=== PATIENT | female | born 1955 | race Caucasian/White ===

== ENCOUNTER → 2016-10-19 | Outpatient (CLI) | payer OTHER ==
[2016-10-19 15:48] LABS: ALT 37 U/L (9-52); AST 14 U/L (14-36); Blood Urea Nitrogen 26 mg/dL (7-17); Non-African American GFR(MDRD) 57 (>60 ml/min/1.73 sqM); Uric Acid 6.3 mg/dL (3.7-7.4)
== END | disposition home or self-care (01) ==
LOC: LABWHC1 15:01
PROVIDERS: ATTEND Podiatrist
DX: M10.9 Gout, unspecified (principal)
CPT/HCPCS: 36415; 82565; 84450; 84460; 84520; 84550

== ENCOUNTER → 2016-10-26 | Outpatient (CLI) | payer OTHER ==
[2016-10-26 14:42] LABS: ALT 39 U/L (9-52); AST 15 U/L (14-36); Blood Urea Nitrogen 26 mg/dL (7-17); Non-African American GFR(MDRD) 56 (>60 ml/min/1.73 sqM); Uric Acid 6.7 mg/dL (3.7-7.4)
== END | disposition home or self-care (01) ==
LOC: LABWHC1 13:54
PROVIDERS: ATTEND Podiatrist
DX: M10.9 Gout, unspecified (principal)
CPT/HCPCS: 36415; 82565; 84450; 84460; 84520; 84550

== ENCOUNTER 2017-01-22 02:46 | Inpatient (IN) | payer OTHER ==
[2017-01-22] MEDS ORDERED: SODIUM CHLORIDE 0.9% 1,000 ML IV STA (03:26)
[2017-01-22] MEDS ORDERED: cloNIDine HCL 0.1 MG TAB PO STA (03:31)
[2017-01-22 03:52] LABS: Basophils # (A) 0.1 k/uL (0-0.2); Basophils % (A) 1 %; CH 28.9; CHCM 33.6; Eosinophils # (A) 0.2 k/uL (0-0.7); Eosinophils % (A) 2 %; HCT 26.2 % (34.0-46.0); HDW 3.28; HGB 8.6 gm/dL (11.4-16.0); Luc # (Auto) 0.11; Luc % (Auto) 1; Lymphocytes % (A) 10 %; MCH 28.4 pg (25.0-35.0); MCHC 32.9 g/dL (31.0-37.0); MCV 86.3 fL (80.0-100.0); Mean Platelet Volume 6.9; Monocytes # (A) 0.3 k/uL (0-1.0); Monocytes % (A) 4 %; Neutrophils # (A) 8.1 k/uL (1.3-7.7); Neutrophils % (A) 83 %; RBC 3.04 m/uL (3.80-5.40); RDW 14.4 % (11.5-15.5); WBC 9.8 k/uL (3.8-10.6); WBC (Perox) 9.66
[2017-01-22] MEDS ORDERED: MORPHINE SULFATE 4 MG/ML SYRINGE IVP STA (03:54)
--- NOTE | 2017-01-22 03:58 | ED ---
URI HPI - General Source: patient, RN notes reviewed, old records reviewed Mode of arrival: EMS Limitations: no limitations <Cesia Oropeza - Last Filed: 01/22/17 04:21> <Blake Murdock - Last Filed: 01/22/17 06:46> - General Chief Complaint: Upper Respiratory Infection Stated Complaint: Abdominal Pain Time Seen by Provider: 01/22/17 02:59 - History of Present Illness Initial Comments: This is a 61-year-old female presenting to the emergency department with chief complaint of epigastric pain, and increasing shortness of breath. Patient reports that she has a history of a heart attack and heart failure. She reports that she's had worsening shortness of breath with walking. She also states that whenever she lays down she feels short of breath. She denies any fever or chills. She reports that earlier today she did feel nauseated and had multiple episodes of vomiting in the EMS vehicle prior to arriving to the emergency department. She denies any headache, vision changes, lightheadedness , peripheral paresthesias. She states that whenever she bends over she has a pain in her epigastric region on both her ribs. She also states she's had a mild nonproductive cough. She reports that she's been taking her blood pressure medications regular. She arrives to the emergency department with a blood pressure 214/94. Oxygen saturation 93%. (Cesia Oropeza) - Related Data Home Medications Medication Instructions Recorded Confirmed Loratadine [Claritin] 10 mg PO DAILY 01/05/15 12/16/15 Metoprolol Tartrate [Lopressor] 75 mg PO BID 03/16/15 12/16/15 Aspirin 81 mg PO DAILY 04/16/15 12/16/15 metFORMIN HCL 1,000 mg PO BID 08/25/15 12/16/15 Atorvastatin [Lipitor] 80 mg PO HS 10/14/15 12/16/15 Hydrochlorothiazide [Hydrodiuril] 25 mg PO BID 10/14/15 12/16/15 Insulin Glulisine [Apidra] See Protocol SQ ACHS 11/05/15 12/16/15 Lisinopril [Zestril] 20 mg PO DAILY 12/10/15 12/16/15 Triamcinolone 0.1% Cream [Kenalog] 1 applicatio TOPICAL BID 12/10/15 12/16/15 amLODIPine [Norvasc] 10 mg PO DAILY 12/10/15 12/16/15 Previous Rx's Medication Instructions Recorded Clopidogrel [Plavix] 75 mg PO DAILY #30 tab 01/13/15 Nitroglycerin Sl Tabs [Nitrostat] 0.4 mg SUBLINGUAL Q5M PRN #25 tab 01/13/15 INSULIN LISPRO (humaLOG) [humaLOG 13 unit SQ AC-TID vial 12/14/15 (formulary)] Insulin Glargine [Lantus] 50 unit SQ W/SUPPER #0 12/14/15 Oseltamivir [Tamiflu] 75 mg PO Q12HR #4 cap 12/14/15 Furosemide [Lasix] 20 mg PO BID #10 tab 12/16/15 Potassium Chloride ER [K-Dur 20] 20 meq PO DAILY #5 tab 12/16/15 Allergies Allergy/AdvReac Type Severity Reaction Status Date / Time cephalexin monohydrate Allergy Rash/Hives Verified 12/16/15 15:41 [From Keflex] ciprofloxacin [From Cipro] Allergy Swelling Verified 12/16/15 15:41 ciprofloxacin HCl Allergy Swelling Verified 12/16/15 15:41 [From Cipro] codeine Allergy Unknown Verified 12/16/15 15:41 latex Allergy Itching Verified 12/16/15 15:41 sulfamethoxazole Allergy Itching Verified 12/16/15 15:41 [From Bactrim] trimethoprim [From Bactrim] Allergy Itching Verified 12/16/15 15:41 adhesive tape AdvReac Itching Verified 12/16/15 15:41 Review of Systems ROS Other: All systems not noted in ROS Statement are negative. <Cesia Oropeza - Last Filed: 01/22/17 04:21> ROS Other: All systems not noted in ROS Statement are negative. <Blake Murdock - Last Filed: 01/22/17 06:46> ROS Statement: Those systems with pertinent positive or pertinent negative responses have been documented in the HPI. Past Medical History Past Medical History: Coronary Artery Disease (CAD), Diabetes Mellitus, Hyperlipidemia, Hypertension Additional Past Medical History / Comment(s): edema, seasonal allergies, wound TASIA lower legS PT STATED RT KYLE CONSIDERED HEALED AND LT KYLE IS WRAPPED-SEES DR ZELAYA FOR WOUND CARE Last Myocardial Infarction Date:: 01/10/15 History of Any Multi-Drug Resistant Organisms: None Reported Past Surgical History: Heart Catheterization With Stent Additional Past Surgical History / Comment(s): PT HAD STENT TO DISTAL RCA IN DECEMBER 2014 carpal tunnel bilateral hands Past Anesthesia/Blood Transfusion Reactions: Family History of Problems w/ Anesthesia, Motion Sickness Additional Past Anesthesia/Blood Transfusion Reaction / Comment(s): states mother had difficulty coming out of anesthesia Date of Last Stent Placement:: 12/30 Past Psychological History: Anxiety Additional Psychological History / Comment(s): Pt states she lives in her home with her adult neaggie and nephew. She is independent. She uses no assistive device. She drives. Smoking Status: Never smoker Past Alcohol Use History: None Reported Past Drug Use History: None Reported - Past Family History Sister(s) Family Medical History: Diabetes Mellitus, Hypertension, Myocardial Infarction ( [place]), Vascular Disorder Additional Family Medical History / Comment(s): post procedure of five stents Mother Family Medical History: CVA/TIA, Diabetes Mellitus, Myocardial Infarction ([place]) Additional Family Medical History / Comment(s): TIA's, PVD. Mother at age 65yrs. Father Family Medical History: Dementia, Diabetes Mellitus, Hypertension Additional Family Medical History / Comment(s): Father at age 72 yrs. <Cesia Oropeza - Last Filed: 01/22/17 04:21> General Exam Limitations: no limitations General appearance: alert, in no apparent distress Head exam: Present: atraumatic, normocephalic, normal inspection Eye exam: Present: normal appearance, PERRL, EOMI. Absent: scleral icterus, conjunctival injection, periorbital swelling ENT exam: Present: normal exam, mucous membranes moist Neck exam: Present: normal inspection. Absent: tenderness, meningismus, lymphadenopathy Respiratory exam: Present: normal lung sounds bilaterally. Absent: respiratory distress, wheezes, rhonchi, stridor Cardiovascular Exam: Present: regular rate, normal rhythm, normal heart sounds. Absent: systolic murmur, diastolic murmur, rubs, gallop, clicks GI/Abdominal exam: Present: soft, normal bowel sounds. Absent: distended, tenderness, guarding, rebound, rigid Extremities exam: Present: normal inspection, full ROM, normal capillary refill. Absent: tenderness, pedal edema, joint swelling, calf tenderness Back exam: Present: normal inspection Neurological exam: Present: alert, oriented X3, CN II-XII intact Psychiatric exam: Present: normal affect, normal mood Skin exam: Present: warm, dry, intact, normal color. Absent: rash <Cesia Oropeza - Last Filed: 01/22/17 04:21> <Blake Murdock - Last Filed: 01/22/17 06:46> - General Exam Comments Initial Comments: This is a 61-year-old female in no acute distress. (Cesia Oropeza) Medical Decision Making - Lab Data Result diagrams: 01/22/17 03:30 01/22/17 03:30 - Radiology Data Radiology results: report reviewed <Cesia Oropeza - Last Filed: 01/22/17 04:21> - Lab Data Result diagrams: 01/22/17 03:30 01/22/17 03:30 - EKG Data -: EKG Interpreted by Ks EKG shows normal: sinus rhythm, axis (Normal), intervals (The QTC is 462 ms consistent with prolonged QT), QRS complexes Rate: normal (Rate 83 bpm) Interpretation: other (There are T inversions in lead 1 and aVL) <Blake Murdock - Last Filed: 01/22/17 06:46> - Medical Decision Making This is a 61-year-old patient presents emergency Department with chief complaint of chest pain, epigastric pain, shortness of breath with ambulation and laying down. She does have a cardiac history and her driller machine is Dr. Núñez. (Cesia Oropeza) I saw this patient in conjunction with the physician kennel assistant. I performed independent history and physical exam. Agree with case management. (Blake Murdock) - Lab Data Lab Results 01/22/17 01/22/17 01/22/17 Range/Units 03:30 03:30 03:30 WBC 9.8 (3.8-10.6) k/uL RBC 3.04 L (3.80-5.40) m/uL Hgb 8.6 L (11.4-16.0) gm/dL Hct 26.2 L (34.0-46.0) % MCV 86.3 (80.0-100.0) fL MCH 28.4 (25.0-35.0) pg MCHC 32.9 (31.0-37.0) g/dL RDW 14.4 (11.5-15.5) % Plt Count 263 (150-450) k/uL Neutrophils % 83 % Lymphocytes % 10 % Monocytes % 4 % Eosinophils % 2 % Basophils % 1 % Neutrophils # 8.1 H (1.3-7.7) k/uL Lymphocytes # 1.0 (1.0-4.8) k/uL Monocytes # 0.3 (0-1.0) k/uL Eosinophils # 0.2 (0-0.7) k/uL Basophils # 0.1 (0-0.2) k/uL PT (9.0-12.0) sec INR (<1.1) APTT (22.0-30.0) sec D-Dimer (<0.60) mg/L FEU Sodium 140 (137-145) mmol/L Potassium 4.6 (3.5-5.1) mmol/L Chloride 107 (98-107) mmol/L Carbon Dioxide 24 (22-30) mmol/L Anion Gap 9 mmol/L BUN 36 H (7-17) mg/dL Creatinine 1.09 H (0.52-1.04) mg/dL Est GFR (MDRD) Af Amer >60 (>60 ml/min/1.73 sqM) Est GFR (MDRD) Non-Af 51 (>60 ml/min/1.73 sqM) Glucose 340 H (74-99) mg/dL Calcium 8.9 (8.4-10.2) mg/dL Magnesium 1.4 L (1.6-2.3) mg/dL Total Bilirubin 0.4 (0.2-1.3) mg/dL AST 15 (14-36) U/L ALT 31 (9-52) U/L Alkaline Phosphatase 70 (38-126) U/L Total Creatine Kinase 185 H (30-135) U/L CK-MB (CK-2) 2.4 (0.0-2.4) ng/mL CK-MB (CK-2) Rel Index 1.3 Troponin I 0.015 (0.000-0.034) ng/mL NT-Pro-B Natriuret Pep pg/mL Total Protein 5.9 L (6.3-8.2) g/dL Albumin 3.1 L (3.5-5.0) g/dL 01/22/17 01/22/17 Range/Units 03:30 03:30 WBC (3.8-10.6) k/uL RBC (3.80-5.40) m/uL Hgb (11.4-16.0) gm/dL Hct (34.0-46.0) % MCV (80.0-100.0) fL MCH (25.0-35.0) pg MCHC (31.0-37.0) g/dL RDW (11.5-15.5) % Plt Count (150-450) k/uL Neutrophils % % Lymphocytes % % Monocytes % % Eosinophils % % Basophils % % Neutrophils # (1.3-7.7) k/uL Lymphocytes # (1.0-4.8) k/uL Monocytes # (0-1.0) k/uL Eosinophils # (0-0.7) k/uL Basophils # (0-0.2) k/uL PT 10.7 (9.0-12.0) sec INR 1.1 (<1.1) APTT 21.9 L (22.0-30.0) sec D-Dimer 0.76 H (<0.60) mg/L FEU Sodium (137-145) mmol/L Potassium (3.5-5.1) mmol/L Chloride (98-107) mmol/L Carbon Dioxide (22-30) mmol/L Anion Gap mmol/L BUN (7-17) mg/dL Creatinine (0.52-1.04) mg/dL Est GFR (MDRD) Af Amer (>60 ml/min/1.73 sqM) Est GFR (MDRD) Non-Af (>60 ml/min/1.73 sqM) Glucose (74-99) mg/dL Calcium (8.4-10.2) mg/dL Magnesium (1.6-2.3) mg/dL Total Bilirubin (0.2-1.3) mg/dL AST (14-36) U/L ALT (9-52) U/L Alkaline Phosphatase (38-126) U/L Total Creatine Kinase (30-135) U/L CK-MB (CK-2) (0.0-2.4) ng/mL CK-MB (CK-2) Rel Index Troponin I (0.000-0.034) ng/mL NT-Pro-B Natriuret Pep 1670 pg/mL Total Protein (6.3-8.2) g/dL Albumin (3.5-5.0) g/dL - Radiology Data Small right-sided pleural effusion. Diffuse airspace opacities which will represent an inflammatory or infectious process versus edema. (Cesia Oropeza) Disposition <Cesia Oropeza - Last Filed: 01/22/17 04:21> <Blake Murdock - Last Filed: 01/22/17 06:46> Clinical Impression: CHF exacerbation, Anemia, Hyperglycemia Disposition: ADMITTED IP TO THIS HOSP Condition: Fair
[2017-01-22 03:59] LABS: ALT 31 U/L (9-52); AST 15 U/L (14-36); Alkaline Phosphatase 70 U/L (38-126); Anion Gap 9 mmol/L; Blood Urea Nitrogen 36 mg/dL (7-17); Calcium 8.9 mg/dL (8.4-10.2); Carbon Dioxide 24 mmol/L (22-30); Chloride 107 mmol/L (98-107); Glucose 340 mg/dL (74-99); Magnesium 1.4 mg/dL (1.6-2.3); Non-African American GFR(MDRD) 51 (>60 ml/min/1.73 sqM); Potassium 4.6 mmol/L (3.5-5.1); Sodium 140 mmol/L (137-145); Total Bilirubin 0.4 mg/dL (0.2-1.3); Total Protein 5.9 g/dL (6.3-8.2)
[2017-01-22 04:01] LABS: INR 1.1 (<1.1); Partial Thromboplastin Time 21.9 sec (22.0-30.0); Prothrombin Time 10.7 sec (9.0-12.0)
--- NOTE | 2017-01-22 04:04 | XR ---
EXAM: XR Chest, 2 Views CLINICAL HISTORY: Chest pain TECHNIQUE: Frontal and lateral views of the chest. COMPARISON: Chest x-ray dated 12/16/2015 FINDINGS: Lungs: Diffuse airspace opacities which may represent an inflammatory or infectious processes versus edema. Pleural space: Small right-sided pleural effusion. Heart: Mild enlargement of the cardiomediastinal silhouette. Mediastinum: See above. Bones/joints: Unremarkable. IMPRESSION: 1. Diffuse airspace opacities which may represent an inflammatory or infectious processes versus edema. 2. Small right-sided pleural effusion.
--- NOTE | 2017-01-22 04:05 | XR ---
EXAM: XR Abdomen Complete, 2 or More Views CLINICAL HISTORY: Reason: Pain TECHNIQUE: Frontal view of the abdomen/pelvis with upright view of the abdomen. COMPARISON: No relevant prior studies available. FINDINGS: Intraperitoneal space: No free air. Gastrointestinal tract: Unremarkable. No dilation. Organs: Punctate calcifications within the pelvis, likely phleboliths. Bones/joints: Unremarkable. IMPRESSION: No acute findings.
[2017-01-22] MEDS ORDERED: RX INFO: IV CONTRAST WAS GIVEN 1 EACH MISC MISCELLANE PRN (04:22)
[2017-01-22 04:25] LABS: Creatine Kinase MB 2.4 ng/mL (0.0-2.4); Troponin I 0.015 ng/mL (0.000-0.034)
--- NOTE | 2017-01-22 05:06 | CT ---
EXAM: CT Angiography Chest With Intravenous Contrast CLINICAL HISTORY: Pain TECHNIQUE: Axial computed tomographic angiography images of the chest with intravenous contrast using pulmonary embolism protocol. CTDI is 7.5, 150. 2, 20.9 mGy and DLP is 836.8 mGy-cm This CT exam was performed using one or more of the following dose reduction techniques: automated exposure control, adjustment of the mA and/or kV according to patient size, and/or use of iterative reconstruction technique. MIP reconstructed images were created and reviewed. COMPARISON: No relevant prior studies available. FINDINGS: Pulmonary arteries: No evidence of pulmonary embolus. Aorta: No acute findings. No thoracic aortic aneurysm. Lungs: Smooth intralobular septal thickening with ground glass opacities suggesting pulmonary edema. Pleural space: Unremarkable. No significant effusion. No pneumothorax. Heart: Trace pericardial effusion. Coronary artery calcifications. No evidence of RV dysfunction. Bones/joints: No acute fracture. No dislocation. Soft tissues: Unremarkable. Lymph nodes: Subcentimeter mediastinal and hilar lymph nodes, likely reactive. Liver: Punctate calcifications within the spleen and liver suggesting remote granulomatous infection. IMPRESSION: No pulmonary embolus. Diffuse smooth intralobular septal thickening with ground glass opacities suggesting pulmonary edema. Small bilateral pleural effusions.
[2017-01-22] MEDS ORDERED: NITROGLYCERIN OINT 1 INCH/GM PACKET TOPICAL STA (05:23)
[2017-01-22] MEDS ORDERED: NITROGLYCERIN SL TABS 0.4 MG TAB SUBLINGUAL STA (05:23)
[2017-01-22] MEDS ORDERED: INSULIN REGULAR 100 UNIT/ML VIAL SQ STA (05:32)
[2017-01-22] MEDS ORDERED: FUROSEMIDE 10 MG/ML 4 ML VIAL IV STA (05:33)
[2017-01-22] MEDS: metFORMIN 500 MG TAB PO SCH ×2 (06:57→17:16)
[2017-01-22 07:11] VITALS: BMI 42.5
[2017-01-22 08:04] LABS: Glucose,Whole Blood 333 mg/dL (75-99)
[2017-01-22] MEDS ORDERED: POTASSIUM CHLORIDE ER 20 MEQ TAB.ER PO SCH (09:00)
[2017-01-22] MEDS ORDERED: CLOPIDOGREL 75 MG TAB PO SCH (09:00)
--- NOTE | 2017-01-22 09:20 | P.CRDCN ---
History of Present Illness Consult date: 01/22/17 Requesting physician: Manav Tavarez Consult reason: congestive heart failure Chief complaint: Shortness of breath History of present illness: Is a 61-year-old female with known history of hypertension, hyperlipidemia, diabetes, coronary artery disease as added to the hospital in December 2014 with a non-ST elevation myocardial infarction. She underwent cardiac catheterization at that time was successful stenting of the distal right coronary artery. Patient at that time was also found to have mild disease in the LAD and circumflex. She follows regularly with Dr. Núñez in the office. Patient presents to the hospital on this occasion with symptoms of progressively worsening shortness of breath, positive PND and orthopnea, symptoms of upper abdominal discomfort which radiates through to the back, and occasional tightness in the throat area with exertion. Patient states that she has seen Dr. serenity shoemaker in the office recently, was complaining of some difficulty breathing when lying flat and her dose of hydralazine had recently been increased. Patient states that she noted her blood pressure at home to be significantly elevated prior to coming in. EMS was called and patient was brought into the hospital. Blood pressure on EMS arrival to , heart rate in the 80s, 93% on room air. X-ray on admission revealed diffuse airspace apace obese which may represent an inflammatory or infectious process versus edema. Small right-sided pleural effusion. She of the chest did not reveal any evidence of a pulmonary embolism. Reveal use smooth intralobular septal thickening with a groundglass opacities suggesting pulmonary edema. Small bilateral pleural effusions. EG on admission showed a normal sinus rhythm with lateral T-wave inversions. Changes appear to be new as compared with prior EKGs. Laboratory data was reviewed, hemoglobin on admission 8.6, d-dimer 0.7, potassium 4.6, BUN 36, creatinine 1.0. Glucose level on arrival 340. Magnesium level I.4. Troponin 0.015. BNP 1670. Denies any recent black stools , no blood in the stool. She was initiated on IV Lasix in the emergency room, continues to diurese well overall. Pressure this morning 154/66 with a heart rate of 70. Past Medical History Past Medical History: Coronary Artery Disease (CAD), Diabetes Mellitus, Hyperlipidemia, Hypertension Additional Past Medical History / Comment(s): edema, seasonal allergies, wound TASIA lower legS PT STATED RT KYLE CONSIDERED HEALED AND LT KYLE IS WRAPPED-SEES DR ZELAYA FOR WOUND CARE. Eye surgery to cauterize bleeding November, Last Myocardial Infarction Date:: 01/10/15 History of Any Multi-Drug Resistant Organisms: None Reported Past Surgical History: Heart Catheterization With Stent Additional Past Surgical History / Comment(s): PT HAD STENT TO DISTAL RCA IN DECEMBER 2014 carpal tunnel bilateral hands Past Anesthesia/Blood Transfusion Reactions: Family History of Problems w/ Anesthesia, Motion Sickness Additional Past Anesthesia/Blood Transfusion Reaction / Comment(s): states mother had difficulty coming out of anesthesia Date of Last Stent Placement:: 12/30 Past Psychological History: Anxiety Additional Psychological History / Comment(s): Pt states she lives in her home with her adult neice and nephew. She is independent. She uses no assistive device. She drives. Smoking Status: Never smoker Past Alcohol Use History: None Reported Past Drug Use History: None Reported - Past Family History Sister(s) Family Medical History: Diabetes Mellitus, Hypertension, Myocardial Infarction ( [place]), Vascular Disorder Additional Family Medical History / Comment(s): post procedure of five stents Mother Family Medical History: CVA/TIA, Diabetes Mellitus, Myocardial Infarction ([place]) Additional Family Medical History / Comment(s): TIA's, PVD. Mother at age 65yrs. Father Family Medical History: Dementia, Diabetes Mellitus, Hypertension Additional Family Medical History / Comment(s): Father at age 72 yrs. Medications and Allergies Home Medications Medication Instructions Recorded Confirmed Type Loratadine [Claritin] 10 mg PO DAILY 01/05/15 01/22/17 History Metoprolol Tartrate [Lopressor] 50 mg PO BID 03/16/15 01/22/17 History Aspirin 81 mg PO DAILY 04/16/15 01/22/17 History metFORMIN HCL 1,000 mg PO BID 08/25/15 01/22/17 History Atorvastatin [Lipitor] 80 mg PO HS 10/14/15 01/22/17 History Hydrochlorothiazide [Hydrodiuril] 25 mg PO BID 10/14/15 01/22/17 History Insulin Glulisine [Apidra] 12 unit SQ TID 11/05/15 01/22/17 History Lisinopril [Zestril] 20 mg PO BID 12/10/15 01/22/17 History Insulin Glargine [Lantus] 45 unit SQ W/SUPPER 01/22/17 01/22/17 History Metoprolol Tartrate [Lopressor] 25 mg PO BID 01/22/17 01/22/17 History Ranitidine HCl [Zantac] 150 mg PO BID 01/22/17 01/22/17 History hydrALAZINE HCL 25 mg PO BID 01/22/17 01/22/17 History Allergies Allergy/AdvReac Type Severity Reaction Status Date / Time cephalexin monohydrate Allergy Rash/Hives Verified 01/22/17 08:27 [From Keflex] ciprofloxacin [From Cipro] Allergy Swelling Verified 01/22/17 08:27 ciprofloxacin HCl Allergy Swelling Verified 01/22/17 08:27 [From Cipro] codeine Allergy Unknown Verified 01/22/17 08:27 latex Allergy Itching Verified 01/22/17 08:27 sulfamethoxazole Allergy Itching Verified 01/22/17 08:27 [From Bactrim] trimethoprim [From Bactrim] Allergy Itching Verified 01/22/17 08:27 adhesive tape AdvReac Itching Verified 01/22/17 08:27 Physical Exam Vitals: Vital Signs Temp Pulse Pulse Resp BP BP Pulse Ox 01/22/17 06:23 97.0 F L 75 18 186/84 95 01/22/17 06:19 69 16 154/66 95 01/22/17 06:07 711 H 18 171/73 98 Intake and Output 01/21/17 01/22/17 01/22/17 22:59 06:59 14:59 Other: Weight 123.2 kg PHYSICAL EXAMINATION: HEENT: [Head is atraumatic, normocephalic. Pupils equal, round. Neck is supple. There is elevated jugular venous pressure.] HEART EXAMINATION: Heart S1 and S2 systolic murmur is heard. CHEST EXAMINATION: Lungs reveal diminished air entry to bilateral bases. ABDOMEN: [ Soft, he's, nontender. Bowel sounds are heard. No organomegaly noted] . EXTREMITIES:[ 2+ peripheral pulses with trace evidence of peripheral edema and no calf tenderness noted]. NEUROLOGIC [patient is awake, alert and oriented -3.] . Results 01/22/17 03:30 01/22/17 03:30 Current Medications Generic Name Dose Route Start Last Admin Trade Name Freq PRN Reason Stop Dose Admin Amlodipine Besylate 10 mg 01/22/17 09:00 Norvasc PO DAILY COUNT INCLUDES THE [facility] Aspirin 81 mg 01/22/17 09:00 Aspirin PO DAILY COUNT INCLUDES THE [facility] Atorvastatin Calcium 80 mg 01/22/17 21:00 Lipitor PO HS COUNT INCLUDES THE [facility] Clopidogrel Bisulfate 75 mg 01/22/17 09:00 Plavix PO DAILY COUNT INCLUDES THE [facility] Furosemide 40 mg 01/22/17 18:00 Lasix IV Q12H ELISABETH Hydrochlorothiazide 25 mg 01/22/17 09:00 Hydrodiuril PO BID COUNT INCLUDES THE [facility] Magnesium Sulfate/Dextrose 1 100 mls @ 100 mls/hr 01/22/17 08:45 gm/ IV Solution IVPB 01/22/17 10:44 Q1H COUNT INCLUDES THE [facility] Insulin Glargine 50 unit 01/22/17 17:30 Lantus SQ W/SUPPER COUNT INCLUDES THE [facility] Insulin Human Lispro 13 unit 01/22/17 07:30 Humalog SQ AC-TID COUNT INCLUDES THE [facility] Lisinopril 20 mg 01/22/17 09:00 Zestril PO DAILY COUNT INCLUDES THE [facility] Metformin HCl 1,000 mg 01/22/17 07:30 01/22/17 06:57 Glucophage PO Not Given AC-BID COUNT INCLUDES THE [facility] Metoprolol Tartrate 75 mg 01/22/17 09:00 Lopressor PO BID COUNT INCLUDES THE [facility] Miscellaneous Information 1 each 01/22/17 04:22 01/22/17 05:00 Rx Info: Iv Contrast Was Given MISCELLANE 01/24/17 04:22 1 each DAILY PRN Administration Per Protocol Potassium Chloride 20 meq 01/22/17 09:00 K-Dur 20 PO DAILY COUNT INCLUDES THE [facility] Sodium Chloride 10 ml 01/22/17 09:00 Saline Flush IV BID COUNT INCLUDES THE [facility] Intake and Output 01/21/17 01/22/17 01/22/17 22:59 06:59 14:59 Other: Weight 123.2 kg EKG Interpretations (text) EKG shows normal sinus rhythm with lateral T-wave inversion. Assessment and Plan Plan: Assessment and plan #1 congestive heart failure, likely diastolic in nature, patient's most recent echocardiogram with Doppler study revealed an ejection fraction of 55-60%, this was performed in September of last year. #2 known history of coronary artery disease with prior RCA stent in 2014 #3 accelerated hypertension #4 history of hypertension Number 5 hyperlipidemia #6 diabetes #7 family history of premature coronary artery disease #8 anemia #9 hypomagnesemia Plan We will obtain a repeat echocardiogram with Doppler study. Continue current dose of IV Lasix. We will also request 2 subsequent troponins be performed. Obtain iron studies. Optimize blood pressure management. Replace magnesium. Further recommendations to follow. DNP note has been reviewed, I agree with a documented findings and plan of care. Patient was seen and examined.
[2017-01-22] MEDS ORDERED: MAGNESIUM SULFATE-D5W PMX 1 GM in DEXTROSE/WATER 1 100ML.BAG IVPB SCH (10:00)
[2017-01-22] MEDS: MAGNESIUM SULFATE-D5W PMX 1 GM in DEXTROSE/WATER 1 100ML.BAG IVPB SCH ×2 (10:01→10:44)
[2017-01-22] MEDS: INSULIN LISPRO (humaLOG) 300 UNIT/3 ML VIAL SQ SCH ×4 (10:04→17:17)
[2017-01-22] MEDS: amLODIPine 10 MG TAB PO SCH ×2 (10:07→10:42)
[2017-01-22] MEDS: HYDROCHLOROTHIAZIDE 25 MG TAB PO SCH ×2 (10:09→22:25)
[2017-01-22] MEDS: ASPIRIN 81 MG CHEW PO SCH (10:09)
[2017-01-22] MEDS: LISINOPRIL 20 MG TAB PO SCH (10:09)
[2017-01-22] MEDS: METOPROLOL TARTRATE 50 MG TAB PO SCH ×3 (10:10→22:26)
[2017-01-22 11:29] LABS: % Iron Saturation 16.3 % (20-50)
[2017-01-22 11:42] LABS: Glucose,Whole Blood 297 mg/dL (75-99)
--- NOTE | 2017-01-22 11:58 | ECHOF ---
Referral Reason:chf MEASUREMENTS -------- HEIGHT: 170.2 cm WEIGHT: 122.9 kg BP: IVSd: 1.6 cm (0.6 - 1.1) LVIDd: 4.2 cm (3.9 - 5.3) LVPWd: 2.1 cm (0.6 - 1.1) IVSs: 2.4 cm LVIDs: 1.9 cm LVPWs: 2.2 cm LAESV Index (A-L): 32.99 ml/m Ao Diam: 3.1 cm (2.0 - 3.7) AV Cusp: 2.0 cm (1.5 - 2.6) LA Diam: 3.4 cm (2.7 - 3.8) MV EXCURSION: 18.395 mm (> 18.000) MV EF SLOPE: 75 mm/s (70 - 150) EPSS: 0.4 cm MV E Porfirio: 1.05 m/s MV DecT: 262 ms MV A Porfirio: 0.86 m/s MV E/A Ratio: 1.22 RAP: 5.00 mmHg RVSP: 8.46 mmHg FINDINGS -------- Sinus rhythm. This was a technically good study. There is severe concentric left ventricular hypertrophy. Overall left ventricular systolic function is normal with, an EF between 55 - 60 %. The right ventricle is normal in size and function. The left atrium is normal in size. The right atrium is normal in size. The aortic valve is trileaflet, and appears structurally normal. No aortic stenosis or regurgitation. The mitral valve leaflets are mildly thickened. Mild mitral regurgitation is present. Mild tricuspid regurgitation present. The right ventricular systolic pressure, as measured by Doppler, is 8.46mmHg. Pulmonic valve appears structurally normal. The aortic root size is normal. Echo free space may represent effusion or a pericardial fat pad. CONCLUSIONS -------- 1. Sinus rhythm. 2. Mild mitral regurgitation is present. 3. Mild tricuspid regurgitation present. 4. The right ventricular systolic pressure, as measured by Doppler, is 8.46mmHg. 5. Pulmonic valve appears structurally normal. 6. The aortic root size is normal. 7. Echo free space may represent effusion or a pericardial fat pad. 8. This was a technically good study. 9. There is severe concentric left ventricular hypertrophy. 10. Overall left ventricular systolic function is normal with, an EF between 55 - 60 %. 11. The right ventricle is normal in size and function. 12. The left atrium is normal in size. 13. The right atrium is normal in size. 14. The aortic valve is trileaflet, and appears structurally normal. No aortic stenosis or regurgitation. 15. The mitral valve leaflets are mildly thickened. PROPERTY CONSULTANT: Viviana Hager RDCS
[2017-01-22 14:37] LABS: Hemoglobin A1C 8.3 % (4.2-6.1)
[2017-01-22 16:51] LABS: Glucose,Whole Blood 143 mg/dL (75-99)
[2017-01-22] MEDS: INSULIN GLARGINE 100 UNIT/ML 10 ML VIAL SQ SCH (17:17)
[2017-01-22] MEDS: FUROSEMIDE 10 MG/ML 4 ML VIAL IV SCH (17:19)
[2017-01-22 20:33] LABS: Glucose,Whole Blood 122 mg/dL (75-99)
[2017-01-22] MEDS: ATORVASTATIN 80 MG TAB PO SCH (22:26)
[2017-01-23 06:26] LABS: Glucose,Whole Blood 360 mg/dL (75-99)
[2017-01-23] MEDS: FUROSEMIDE 10 MG/ML 4 ML VIAL IV SCH ×2 (06:35→17:24)
[2017-01-23] MEDS: metFORMIN 500 MG TAB PO SCH ×2 (06:35→17:25)
[2017-01-23] MEDS: INSULIN LISPRO (humaLOG) 300 UNIT/3 ML VIAL SQ SCH ×3 (06:37→17:25)
[2017-01-23 06:39] LABS: Basophils % (A) 0 %; CHCM 33.4; Eosinophils # (A) 0.4 k/uL (0-0.7); Eosinophils % (A) 4 %; HCT 28.8 % (34.0-46.0); HGB 9.2 gm/dL (11.4-16.0); Luc # (Auto) 0.17; Luc % (Auto) 2; Lymphocytes # (A) 1.4 k/uL (1.0-4.8); Lymphocytes % (A) 15 %; MCH 27.8 pg (25.0-35.0); MCHC 31.9 g/dL (31.0-37.0); MCV 87.4 fL (80.0-100.0); Mean Platelet Volume 6.7; Monocytes # (A) 0.5 k/uL (0-1.0); Monocytes % (A) 5 %; Neutrophils # (A) 6.5 k/uL (1.3-7.7); Neutrophils % (A) 73 %; RBC 3.29 m/uL (3.80-5.40); RDW 14.4 % (11.5-15.5); WBC 8.9 k/uL (3.8-10.6); WBC (Perox) 9.13
[2017-01-23 07:00] LABS: Calcium 9.4 mg/dL (8.4-10.2); Magnesium 1.9 mg/dL (1.6-2.3); Potassium 4.4 mmol/L (3.5-5.1)
[2017-01-23] MEDS: METOPROLOL TARTRATE 50 MG TAB PO SCH ×2 (08:06→22:08)
[2017-01-23] MEDS: amLODIPine 10 MG TAB PO SCH (08:06)
[2017-01-23] MEDS: ASPIRIN 81 MG CHEW PO SCH (08:07)
[2017-01-23] MEDS: HYDROCHLOROTHIAZIDE 25 MG TAB PO SCH ×2 (08:07→22:08)
[2017-01-23] MEDS: LISINOPRIL 20 MG TAB PO SCH (09:39)
[2017-01-23 11:56] LABS: Glucose,Whole Blood 116 mg/dL (75-99)
--- NOTE | 2017-01-23 15:45 | P.PN ---
Subjective Principal diagnosis: CHF Is a 61-year-old female with known history of hypertension, hyperlipidemia, diabetes, coronary artery disease as added to the hospital in December 2014 with a non-ST elevation myocardial infarction. She underwent cardiac catheterization at that time was successful stenting of the distal right coronary artery. Patient at that time was also found to have mild disease in the LAD and circumflex. She follows regularly with Dr. Núñez in the office. Patient presents to the hospital on this occasion with symptoms of progressively worsening shortness of breath, positive PND and orthopnea, symptoms of upper abdominal discomfort which radiates through to the back, and occasional tightness in the throat area with exertion. Patient states that she has seen Dr. serenity shoemaker in the office recently, was complaining of some difficulty breathing when lying flat and her dose of hydralazine had recently been increased. Patient states that she noted her blood pressure at home to be significantly elevated prior to coming in. EMS was called and patient was brought into the hospital. Blood pressure on EMS arrival 214/92, heart rate in the 80s, 93% on room air. X-ray on admission revealed diffuse airspace apace obese which may represent an inflammatory or infectious process versus edema. Small right-sided pleural effusion. She of the chest did not reveal any evidence of a pulmonary embolism. Reveal use smooth intralobular septal thickening with a groundglass opacities suggesting pulmonary edema. Small bilateral pleural effusions. EG on admission showed a normal sinus rhythm with lateral T-wave inversions. Changes appear to be new as compared with prior EKGs. She was initiated on IV Lasix in the emergency room, continues to diurese well overall. Creatinine 1.3, BUN 41, potassium 4.4. Objective - Vital Signs Vital signs: Vital Signs Temp 98.1 F 01/23/17 12:00 Pulse 66 01/23/17 12:00 Resp 16 01/23/17 12:00 BP 151/78 01/23/17 12:00 Pulse Ox 94 L 01/23/17 12:00 Intake & Output 01/22/17 01/23/17 01/23/17 18:59 06:59 18:59 Intake Total 342 1160 Balance 342 1160 Weight 123.2 kg 124.1 kg Intake: IV 202 200 Magnesium Sulfate-D5w Pmx 202 200 1 gm In Dextrose/Water 1 100ml.bag @ 100 mls/hr IVPB Q1H ELISABETH Rx#: [id number] Oral 140 960 Other: # Voids 1 - Exam PHYSICAL EXAMINATION: HEENT: [Head is atraumatic, normocephalic. Pupils equal, round. Neck is supple. There is elevated jugular venous pressure.] HEART EXAMINATION: Heart S1 and S2 systolic murmur is heard. CHEST EXAMINATION: Lungs reveal diminished air entry to bilateral bases. ABDOMEN: [ Soft, he's, nontender. Bowel sounds are heard. No organomegaly noted] . EXTREMITIES:[ 2+ peripheral pulses with trace evidence of peripheral edema and no calf tenderness noted]. NEUROLOGIC [patient is awake, alert and oriented -3.] - Labs CBC & Chem 7: 01/23/17 06:08 01/23/17 06:08 Labs: Abnormal Lab Results - Last 24 Hours (Table) 01/22/17 01/22/17 01/23/17 Range/Units 16:50 20:31 06:08 RBC 3.29 L (3.80-5.40) m/uL Hgb 9.2 L (11.4-16.0) gm/dL Hct 28.8 L (34.0-46.0) % Sodium (137-145) mmol/L BUN (7-17) mg/dL Creatinine (0.52-1.04) mg/dL Glucose (74-99) mg/dL POC Glucose (mg/dL) 143 H 122 H (75-99) mg/dL 01/23/17 01/23/17 01/23/17 Range/Units 06:08 06:24 11:54 RBC (3.80-5.40) m/uL Hgb (11.4-16.0) gm/dL Hct (34.0-46.0) % Sodium 136 L (137-145) mmol/L BUN 41 H (7-17) mg/dL Creatinine 1.30 H (0.52-1.04) mg/dL Glucose 147 H (74-99) mg/dL POC Glucose (mg/dL) 360 H 116 H (75-99) mg/dL Assessment and Plan Plan: Assessment and plan #1 congestive heart failure, diastolic in nature, performed in September of last year. #2 known history of coronary artery disease with prior RCA stent in 2014 #3 accelerated hypertension #4 history of hypertension Number 5 hyperlipidemia #6 diabetes #7 family history of premature coronary artery disease #8 anemia #9 hypomagnesemia Plan A cardiogram with Doppler study was performed which revealed an ejection fraction of 55-60%. We'll do 9.2 today. Creatinine 1.3. We will continue current dose of IV Lasix. DNP note has been reviewed, I agree with a documented findings and plan of care. Patient was seen and examined.
[2017-01-23 16:36] LABS: Glucose,Whole Blood 195 mg/dL (75-99)
[2017-01-23] MEDS: INSULIN GLARGINE 100 UNIT/ML 10 ML VIAL SQ SCH (17:23)
--- NOTE | 2017-01-23 17:47 | HP ---
DATE OF ADMISSION: 01/22/2017 CHIEF COMPLAINT: Shortness of breath. HISTORY OF PRESENT ILLNESS: This is the first known admission for this 61-year-old G1, P1, A0 white female. She presented with mild chest discomfort and shortness of breath. She has had a previous NE and stents were placed in 2013. She is also diabetic and she does not smoke. REVIEW OF SYSTEMS: She has had no syncope, diaphoresis, change in vision or hearing, cough, hemoptysis, palpitations, orthopnea, PND, etc. She has had no abdominal pain, nausea, vomiting, hematemesis, melena, hematochezia, cirrhosis, hepatitis, renal failure, kidney disease, hematuria, dysuria, frequency, vaginal discharge or bleeding, arthralgias. Her diabetes is apparently not in good control. Past medical history, family history, and personal and social histories are unremarkable except for those I mentioned. Medication-bar she is on: 1. Claritin. 2. Metformin. 3. Lantus. 4. Apidra. She does not drink or smoke. PHYSICAL EXAMINATION: VITAL SIGNS: Blood pressure is 145/88 with a pulse of 91 and regular, respirations of 38. She is afebrile. GENERAL: She appeared to be obese, pale and slightly edematous. HEENT: Head, ears, eyes, nose, mouth and throat otherwise normal. NECK: Neck veins could not be assessed. Carotids normal. CHEST: Chest demonstrated decreased breath sounds throughout with scattered rales. CARDIAC: Exam sounds like sinus rhythm with no murmurs or extra sounds. ABDOMEN: Protuberant, soft and nontender. EXTREMITIES: Normal. NEUROLOGICAL: Intact. IMPRESSION: 1. Congestive heart failure. 2. Anasarca. 3. Poorly controlled insulin-dependent diabetes mellitus. 4. Coronary artery disease with previous stenting. 5. Obesity. PLAN: 1. Bed rest. 2. Diuresis. 3. Thyroid functions. 4. Echocardiogram. 5. Control diabetes. 6. Cardiology consult.
--- NOTE | 2017-01-23 20:02 | PN ---
DATE OF SERVICE: 01/23/2017 CHIEF COMPLAINT: Exacerbation of congestive heart failure. HISTORY OF PRESENT ILLNESS: This lady is doing better. Breathing is improving. She has less facial edema. Weight has gone down significantly. PHYSICAL EXAMINATION: Face is less edematous. CHEST: Clear. CARDIAC: Normal. ABDOMEN: Soft, nontender. IMPRESSION: 1. Congestive heart failure. 2. Uncontrolled diabetes mellitus. PLAN: 1. Continue efforts to diuresis. 2. Watch blood sugars. 3. Increase activity.
[2017-01-23 21:13] LABS: Glucose,Whole Blood 222 mg/dL (75-99)
[2017-01-23] MEDS: ATORVASTATIN 80 MG TAB PO SCH (22:08)
[2017-01-23 22:42] VITALS: RESP 18
[2017-01-24 05:54] VITALS: PULSE 78
[2017-01-24] MEDS: FUROSEMIDE 10 MG/ML 4 ML VIAL IV SCH (05:54)
[2017-01-24] MEDS: METOPROLOL TARTRATE 50 MG TAB PO SCH (07:37)
[2017-01-24] MEDS: ASPIRIN 81 MG CHEW PO SCH (07:37)
[2017-01-24] MEDS: amLODIPine 10 MG TAB PO SCH (07:37)
[2017-01-24] MEDS: HYDROCHLOROTHIAZIDE 25 MG TAB PO SCH (07:37)
[2017-01-24] MEDS: metFORMIN 500 MG TAB PO SCH ×2 (07:37→16:29)
[2017-01-24] MEDS: LISINOPRIL 20 MG TAB PO SCH (07:38)
[2017-01-24] MEDS: INSULIN LISPRO (humaLOG) 300 UNIT/3 ML VIAL SQ SCH ×3 (07:40→17:56)
[2017-01-24 07:42] LABS: Glucose,Whole Blood 201 mg/dL (75-99)
[2017-01-24 11:09] LABS: Glucose,Whole Blood 236 mg/dL (75-99)
--- NOTE | 2017-01-24 14:47 | CDI ---
In responding to this query, please exercise your independent professional judgment. The [facility] Coding Staff and Clinical Documentation Specialists appreciate your assistance in clarifying documentation, maintaining compliance with coding guidelines, accurately documenting patients condition and capturing severity of illness. The fact that a question is asked does not imply that any particular answer is desired or expected. Communication forms are a method of clarifying documentation and are not made part of the Legal Health Record. Thank you in advance for your clarification. Last Revision, November 2016 [address] [address] [place] [address] Documentation Clarification Form Date: 01/24/2017 2:06:00 PM From: Micaela Jes Admit Date: 01/22/2017 5:54:00 AM Patient Name: Loreta Beach Visit Number: [id number] Discharge Date: Dr. Marilee Núñez/Mary Holly DNP CHF, diastolic is documented in your consult and progress note. History/Risk Factors: Coronary artery disease, Diabetes mellitus, Hyperlipidemia , Hypertension Clinical Indicators: Progressively worsening shortness of breath, positive PND and orthopnea. She noted that her blood pressure at home has been significantly elevated. VS/Pulse OX: 214/92 82 20 98.1, 93 % RA BNP: 1670 Echocardiogram Results: EF 55-60 % Chest X Ray: diffuse airspace opacities which may represent an infalmmatory or infectious process versus edema. Small right-sided pleural effusion Treatment: IV Lasix (change to PO) Optimize blood pressure management Monitor Labs In your professional opinion, can you please clarify the acuity of Diastolic Heart failure if known? Diastolic Heart Failure: Acute Chronic Acute on Chronic XX Unable to determine Other, please specify Please document in your progress notes and discharge summary in order to capture severity of illness and risk of mortality. Include clinical findings that support your diagnosis. FYI: Press F11 to launch patient chart. Place X here if this finding has no clinical significance, is not applicable or if you are not able to provide any additional documentation. EDENILSOND
--- NOTE | 2017-01-24 15:03 | P.DS ---
Providers Date of admission: 01/22/17 05:54 Expected date of discharge: 01/24/17 Attending physician: Manav Tavarez Consults: 01/22/17 07:52 Consult Physician Urgent Consulting Provider: Marilee Núñez Consult Reason/Comments: CHF Do you want consulting provider notified?: Yes Primary care physician: [facility] Hospital Course: s a 61-year-old female with known history of hypertension, hyperlipidemia, diabetes, coronary artery disease as added to the hospital in December 2014 with a non-ST elevation myocardial infarction. She underwent cardiac catheterization at that time was successful stenting of the distal right coronary artery. Patient at that time was also found to have mild disease in the LAD and circumflex. She follows regularly with Dr. Núñez in the office. Patient presents to the hospital on this occasion with symptoms of progressively worsening shortness of breath, positive PND and orthopnea, symptoms of upper abdominal discomfort which radiates through to the back, and occasional tightness in the throat area with exertion. Patient states that she has seen Dr. serenity shoemaker in the office recently, was complaining of some difficulty breathing when lying flat and her dose of hydralazine had recently been increased. Patient states that she noted her blood pressure at home to be significantly elevated prior to coming in. EMS was called and patient was brought into the hospital. Blood pressure on EMS arrival 214/92, heart rate in the 80s, 93% on room air. X-ray on admission revealed diffuse airspace apace obese which may represent an inflammatory or infectious process versus edema. Small right-sided pleural effusion. She of the chest did not reveal any evidence of a pulmonary embolism. Reveal use smooth intralobular septal thickening with a groundglass opacities suggesting pulmonary edema. Small bilateral pleural effusions. EG on admission showed a normal sinus rhythm with lateral T-wave inversions. Changes appear to be new as compared with prior EKGs. She was initiated on IV Lasix in the emergency room, continues to diurese well overall. Creatinine 1.3, BUN 41, potassium 4.4. She was seen in the morning of the and was felt to be hemodynamically stable and appropriate proceed with a discharge by cardiology's recommendations Patient did have a CAT scan Echocardiogram was obtained did show left ventricular systolic function normal with an EF between 55 and 60%. Patient did have a CAT scan of the chest showed no evidence of a pulmonary emboli Impression discharge to Present on admission shortness of breath suspect due to acute exacerbation of diastolic congestive heart failure echocardiogram EF 55-60% Morbid obesity BMI 42 Known coronary artery disease prior coronary stenting right coronary and 2015 Present on admission hypertension urgency Hyperlipidemia Positive family history of premature coronary artery disease Present on admission hypo-magnesium Type 2 diabetes controlled hemoglobin A1c 8.3 The above dictated assessment and findings were discussed with dr tavarez . Impression and the plan of care have been dictated as directed. Malia Braden nurse practitioner acting as a scribe for dr tavarez Patient Condition at Discharge: Fair Plan - Discharge Summary New Discharge Prescriptions: Furosemide [Lasix] 40 mg PO BID@0900,1600 #60 tab Metoprolol Tartrate [Lopressor] 75 mg PO BID #60 tablet Spironolactone [Aldactone] 12.5 mg PO BID #30 tab Discharge Medication List Loratadine [Claritin] 10 mg PO DAILY 01/05/15 [History] Clopidogrel [Plavix] 75 mg PO DAILY #30 tab 01/13/15 [Rx] Nitroglycerin Sl Tabs [Nitrostat] 0.4 mg SUBLINGUAL Q5M PRN #25 tab 01/13/15 [Rx ] Aspirin 81 mg PO DAILY 04/16/15 [History] metFORMIN HCL 1,000 mg PO BID 08/25/15 [History] Atorvastatin [Lipitor] 80 mg PO HS 10/14/15 [History] Insulin Glulisine [Apidra] 12 unit SQ TID 11/05/15 [History] Lisinopril [Zestril] 20 mg PO BID 12/10/15 [History] Insulin Glargine [Lantus] 45 unit SQ W/SUPPER 01/22/17 [History] Ranitidine HCl [Zantac] 150 mg PO BID 01/22/17 [History] Furosemide [Lasix] 40 mg PO BID@0900,1600 #60 tab 01/24/17 [Rx] Metoprolol Tartrate [Lopressor] 75 mg PO BID #60 tablet 01/24/17 [Rx] Spironolactone [Aldactone] 12.5 mg PO BID #30 tab 01/24/17 [Rx] Follow up Appointment(s)/Referral(s): Gale Amin MD [Primary Care Provider] - 1-2 days Yoseph Cortés MD [STAFF PHYSICIAN] - 1 Week Activity/Diet/Wound Care/Special Instructions: PATRICIA and MATEUS on Sunday Discharge Disposition: HOME SELF-CARE
[2017-01-24] MEDS ORDERED: FUROSEMIDE 40 MG TAB PO SCH (16:00)
[2017-01-24 16:16] VITALS: BP 195/83; TEMP 97.9
[2017-01-24 17:23] LABS: Glucose,Whole Blood 102 mg/dL (75-99)
[2017-01-24] MEDS: INSULIN GLARGINE 100 UNIT/ML 10 ML VIAL SQ SCH (17:57)
[2017-01-24] MEDS ORDERED: SPIRONOLACTONE 25 MG TAB PO SCH (21:00)
--- NOTE | 2017-01-24 22:21 | PN ---
This lady presented with what seems to be a combination of systolic and more importantly diastolic heart failure. She is doing well. Blood pressure control is optimized. I am adding Aldactone to her regimen. We will make minor adjustment with medications. Blood pressure control is optimal. We will increase activity and she can be discharged. Vital signs are stable. Blood pressure is 140/70, pulse rate 70 per minute. S1, S2 heard normally. Short systolic murmur noted along left sternal border. Lungs are clear. Abdomen and lower extremity exam is unchanged. Patient is advised to be discharged later this evening if stable, to have a CBC and BMP on Sunday, and to see Dr. Núñez in 2 weeks and her primary care physician in 1 week.
[2017-01-25] MEDS ORDERED: HYDROCHLOROTHIAZIDE 25 MG TAB PO SCH (09:00)
--- NOTE | 2017-01-25 15:06 | PN ---
CHIEF COMPLAINT: Shortness of breath. HISTORY OF PRESENT ILLNESS: This lady is doing much better, her breathing has improved. PHYSICAL EXAM: Her chest is clear and cardiac exam is normal. The abdomen is oft, nontender. IMPRESSION: Congestive heart failure. PLAN: She may be able to go home today and this will be arranged by the nurse practitioner.
== END 2017-01-24 18:35 | disposition home or self-care (01) | DRG 292 ==
LOC: EC 02:46 → 6SEL 05:54 → 5MS5E 01-23 23:29
PROVIDERS: ADMIT Family Medicine; ATTEND Family Medicine
DX: I11.0 Hypertensive heart disease with heart failure (principal); Z68.41 Body mass index [BMI] 40.0-44.9, adult; E11.65 Type 2 diabetes mellitus with hyperglycemia; E66.01 Morbid (severe) obesity due to excess calories; I50.33 Acute on chronic diastolic (congestive) heart failure; E83.42 Hypomagnesemia; I25.10 Atherosclerotic heart disease of native coronary artery without angina pectoris; E78.5 Hyperlipidemia, unspecified; I25.2 Old myocardial infarction; I16.0 Hypertensive urgency; D64.9 Anemia, unspecified; Z71.3 Dietary counseling and surveillance; Z95.5 Presence of coronary angioplasty implant and graft; Z79.82 Long term (current) use of aspirin; Z79.02 Long term (current) use of antithrombotics/antiplatelets; Z79.4 Long term (current) use of insulin; Z79.899 Other long term (current) drug therapy; Z79.84 Long term (current) use of oral hypoglycemic drugs; Z82.49 Family history of ischemic heart disease and other diseases of the circulatory system; J30.2 Other seasonal allergic rhinitis
CPT/HCPCS: 36415; 71020; 71275; 74000; 80048; 80053; 82550; 82553; 83036; 83540; 83550; 83735; 83880; 84484; 85025; 85379; 85610; 85730; 93005; 93306; 96374; 96375; 99285

== ENCOUNTER → 2017-01-30 | Outpatient (CLI) | payer OTHER ==
[2017-01-30 13:11] LABS: Calcium 9.1 mg/dL (8.4-10.2); Potassium 5.2 mmol/L (3.5-5.1); Total Bilirubin 0.3 mg/dL (0.2-1.3); Total Protein 6.2 g/dL (6.3-8.2)
== END ==
LOC: LABWHC1 12:21
DX: I50.9 Heart failure, unspecified (principal)
CPT/HCPCS: 36415; 80053; 83880

== ENCOUNTER → 2017-02-23 | Outpatient (CLI) | payer OTHER ==
--- NOTE | 2017-02-26 08:04 | MM ---
Reason for exam: screening (asymptomatic). Last mammogram was performed 1 year and 1 month ago. History: Patient is postmenopausal. Physical Findings: A clinical breast exam by your physician is recommended on an annual basis and results should be correlated with mammographic findings. MG Screening Mammo w CAD Bilateral CC and MLO view(s) were taken. Prior study comparison: January 19, 2016, bilateral MG work up mamm w CAD BILAT. November 12, 2015, bilateral MG screening mammo w CAD. There are scattered fibroglandular densities. Finding: There are calcifications in both breasts. There is a chronic nodularity in the right breast. ASSESSMENT: Benign, BI-RAD 2 RECOMMENDATION: Routine screening mammogram of both breasts in 1 year.
== END | disposition home or self-care (01) ==
LOC: RADMAMWWP 12:34
PROVIDERS: ATTEND Family Medicine
DX: Z12.31 Encounter for screening mammogram for malignant neoplasm of breast (principal)

== ENCOUNTER → 2017-08-06 | Outpatient (CLI) | payer OTHER ==
--- NOTE | 2017-08-06 15:07 | US ---
EXAMINATION TYPE: US renal artery duplex complet DATE OF EXAM: 08/06/2017 COMPARISON: 11/12/2015 CLINICAL HISTORY: 62-year-old female I10 essential hypertension. Patient stated has had HTN x 30 year s; diabetic TECHNIQUE: Multiple sonographic images of the kidneys are obtained. Color Doppler and spectral wavefo rm analysis of the renal arteries and aorta. FINDINGS: MEASUREMENTS: RENAL SIZE: Rt Kidney: 15.7 x 6.8 x 5.3cm Lt Kidney: 14.9 x 6.0 x 5.6cm RESISTANCE INDEX Right: 1.01 mid and 1.0 lower pole Left: 0.91 upper pole RA VELOCITY ( < 180 cm/s) Right: 147.9cm/s mid Left: 232.2cm/s distal and rechecked Abdominal aortic velocity: 121 cm/s RA/AO RATIO (< 3.5 ) Right: 1.2 Left: 1.9 BRIDGE PAINTER NOTES: Exam is technically limited by vessel visualization due to larger body habitus. Bi lateral segmental arteries are poorly visualized, especially on the left. Aorta is not well seen sherita cially mid and distally due to increased depth of penetration and overlying bowel gas, but size is wn l as seen. Abnormally elevated RI bilaterally as normal RI at arcuate arteries should be<0.8. Abnormally elevate d PSV of Distal Left Renal Artery as PSV should be<180.0cm/s. Bilateral kidneys: no hydronephrosis. IMPRESSION: 1. Technically limited exam. Unable to assess systolic velocity within the mid abdominal aorta. 2. Given elevated peak systolic velocity in the left renal artery, unable to exclude renal artery garima nosis despite the normal RA/AO ratio. The discrepancy with the ratio may be secondary to the aortic v elocity being measured at a more proximal level than should have been used. 3. Increased resistive indices in the kidneys could reflect underlying chronic kidney disease. Note t hat the resistive index is generally decreased in the setting of renal artery stenosis. If further im aging evaluation is desired, consider MRA.
== END | disposition home or self-care (01) ==
LOC: RADUSMAIN 09:59
PROVIDERS: ATTEND Family Medicine
DX: N28.9 Disorder of kidney and ureter, unspecified (principal); R80.9 Proteinuria, unspecified; I10 Essential (primary) hypertension
CPT/HCPCS: 93975

== ENCOUNTER 2017-08-15 14:36 | Emergency (ER) | payer OTHER ==
[2017-08-15 14:46] LABS: Glucose,Whole Blood 406 mg/dL (75-99)
[2017-08-15 14:50] VITALS: RESP 18
--- NOTE | 2017-08-15 15:18 | ED ---
General Adult HPI - General Chief complaint: Recheck/Abnormal Lab/Rx Stated complaint: HYPERGLYCEMIA Time Seen by Provider: 08/15/17 15:14 Source: patient Mode of arrival: wheelchair - History of Present Illness Initial comments: chief complaint history of present illness is a 62-year-old female sent emergency room by her family doctor because of elevated blood sugar. She reports her sugars normally go to 1 [phone]. She admits she has very bad about her diet. She is insulin-dependent diabetic for the past several years. Patient was sent here for IV hydration and possible insulin if needed. She is denying any pain. No nausea no vomiting. - Related Data Home Medications Medication Instructions Recorded Confirmed Loratadine [Claritin] 10 mg PO DAILY 01/05/15 08/15/17 Aspirin 81 mg PO DAILY 04/16/15 08/15/17 Atorvastatin [Lipitor] 80 mg PO HS 10/14/15 08/15/17 Insulin Glulisine [Apidra] 15 unit SQ TID 11/05/15 08/15/17 Insulin Glargine [Lantus] 50 unit SQ HS 01/22/17 08/15/17 Furosemide [Lasix] 40 mg PO BID 08/15/17 08/15/17 Lisinopril [Zestril] 10 mg PO BID 08/15/17 08/15/17 Spironolactone [Aldactone] 25 mg PO BID 08/15/17 08/15/17 amLODIPine [Norvasc] 5 mg PO BID 08/15/17 08/15/17 hydrALAZINE HCL [Apresoline] 50 mg PO BID 08/15/17 08/15/17 Previous Rx's Medication Instructions Recorded Metoprolol Tartrate [Lopressor] 75 mg PO BID #60 tablet 01/24/17 Allergies Allergy/AdvReac Type Severity Reaction Status Date / Time cephalexin monohydrate Allergy Rash/Hives Verified 08/15/17 15:27 [From Keflex] ciprofloxacin [From Cipro] Allergy Swelling Verified 08/15/17 15:27 ciprofloxacin HCl Allergy Swelling Verified 08/15/17 15:27 [From Cipro] codeine Allergy Unknown Verified 08/15/17 15:27 latex Allergy Itching Verified 08/15/17 15:27 sulfamethoxazole Allergy Itching Verified 08/15/17 15:27 [From Bactrim] trimethoprim [From Bactrim] Allergy Itching Verified 08/15/17 15:27 adhesive tape AdvReac Itching Verified 08/15/17 15:27 Review of Systems ROS Statement: Those systems with pertinent positive or pertinent negative responses have been documented in the HPI. review of systems no headache or visual acuity changes no chest pain or shortness of breath no GI/ problems no neuro deficits. All systems are reviewed.Past medical problems significant for coronary artery disease 1 [place], insulin-dependent diabetes mellitus for approximately 70 years. Hyperlipidemia , hypertension, seasonal edema, she has had eye surgery because of diabetes. Her surgeries include heart catheterization with a stent placed. She's had carpal tunnel surgery of both hands. Family history father had prostate cancer mother had diabetes. Patient has ALLERGIES to Keflex, Cipro, latex, sulfa and adhesives. Nonsmoker nondrinker. ROS Other: All systems not noted in ROS Statement are negative. Past Medical History Past Medical History: Coronary Artery Disease (CAD), Diabetes Mellitus, Hyperlipidemia, Hypertension Additional Past Medical History / Comment(s): edema, seasonal allergies, wound TASIA lower legS PT STATED RT KYLE CONSIDERED HEALED AND LT KYLE IS WRAPPED-SEES DR ZELAYA FOR WOUND CARE. Eye surgery to cauterize bleeding November, Last Myocardial Infarction Date:: 01/10/15 History of Any Multi-Drug Resistant Organisms: None Reported Past Surgical History: Heart Catheterization With Stent Additional Past Surgical History / Comment(s): PT HAD STENT TO DISTAL RCA IN DECEMBER 2014 carpal tunnel bilateral hands Past Anesthesia/Blood Transfusion Reactions: Family History of Problems w/ Anesthesia, Motion Sickness Additional Past Anesthesia/Blood Transfusion Reaction / Comment(s): states mother had difficulty coming out of anesthesia Date of Last Stent Placement:: 12/30 Past Psychological History: Anxiety Smoking Status: Never smoker Past Alcohol Use History: None Reported Past Drug Use History: None Reported - Past Family History Sister(s) Family Medical History: Diabetes Mellitus, Hypertension, Myocardial Infarction ( [place]), Vascular Disorder Additional Family Medical History / Comment(s): post procedure of five stents Mother Family Medical History: CVA/TIA, Diabetes Mellitus, Myocardial Infarction ([place]) Additional Family Medical History / Comment(s): TIA's, PVD. Mother at age 65yrs. Father Family Medical History: Dementia, Diabetes Mellitus, Hypertension Additional Family Medical History / Comment(s): Father at age 72 yrs. General Exam - General Exam Comments Initial Comments: General: The patient is awake and alert, in no distress, and does not appear acutely ill. sent here because of elevated blood sugar. Accu-Chek here was 390. Vital signs temp 97.3 pulse 84 respiratory rate 18 pulse ox 99% room air blood pressure 196/83. Eye: Pupils are equal, round and reactive to light, extra-ocular movements are intact ; there is normal conjunctiva bilaterally. No signs of icterus. Ears, nose, mouth and throat: There are moist mucous membranes and no oral lesions. Neck: The neck is supple, there is no tenderness Cardiovascular: There is a regular rate and rhythm. No murmur, rub or gallop is appreciated. Respiratory: Lungs are clear to auscultation, respirations are non-labored, breath sounds are equal. No wheezes, stridor, rales, or rhonchi. Gastrointestinal: Soft, non-distended, non-tender abdomen without masses or organomegaly noted. There is no rebound or guarding present. No CVA tenderness. Bowel sounds are unremarkable. Back: There is no tenderness to palpation in the midline. There is no obvious deformity. No rashes noted. Musculoskeletal: Normal ROM, no tenderness, There is no pedal edema. There is no calf tenderness or swelling. Sensation intact. Neurological: CN II-XII intact, There are no obvious motor or sensory deficits. Coordination appears grossly intact. Speech is normal. Skin: Skin is warm and dry and no rashes or lesions are noted. Psychiatric: Cooperative, appropriate mood & affect, normal judgment. Course Vital Signs 08/15/17 08/15/17 08/15/17 14:47 16:33 16:42 Temperature 97.3 F L Pulse Rate 84 84 80 Respiratory 18 Rate Blood Pressure 196/83 O2 Sat by Pulse 99 Oximetry 08/15/17 16:45 Temperature Pulse Rate 82 Respiratory 18 Rate Blood Pressure 176/86 O2 Sat by Pulse 98 Oximetry EKG Findings - EKG Comments: EKG Findings:: EKG was done and reviewed at 1419 show normal sinus rhythm with sinus arrhythmia. Age undetermined inferior injury. Rate 68. Eye was 204 QRS 80 QT [address]Tc [address] No acute ST elevation no ectopy no ischemic changes. No old EKG available this time to compare to. Dr. Nolasco Medical Decision Making - Medical Decision Making Medical decision-making. The patient's come here from the office because of elevated blood sugar. Our point of service blood sugar was 390 and the lab reported a blood sugar to be similar. Acetone negative . laboratory reports elevated potassium 6.3. white count 7.9 hemoglobin 9.2 hematocrit 27.9. INR 1.1. BMP to 30. BUN 45 creatinine 1.43 and GFR 37.The patient had already received NovoLog 15 units subcu. She will also receive Kayexalate, IV sodium bicarb and albuterol updraft. Reevaluation after hydration. blood sugar continues to come down currently to 95. The patient does not want to stay in hospital. States that she can check her sugar at home and administer her own Apidra. the patient admits that she is very bad with her diet and choices. - Lab Data Result diagrams: 08/15/17 15:42 08/15/17 15:42 Lab Results 08/15/17 08/15/17 08/15/17 Range/Units 14:45 15:36 15:42 WBC (3.8-10.6) k/uL RBC (3.80-5.40) m/uL Hgb (11.4-16.0) gm/dL Hct (34.0-46.0) % MCV (80.0-100.0) fL MCH (25.0-35.0) pg MCHC (31.0-37.0) g/dL RDW (11.5-15.5) % Plt Count (150-450) k/uL Neutrophils % % Lymphocytes % % Monocytes % % Eosinophils % % Basophils % % Neutrophils # (1.3-7.7) k/uL Lymphocytes # (1.0-4.8) k/uL Monocytes # (0-1.0) k/uL Eosinophils # (0-0.7) k/uL Basophils # (0-0.2) k/uL Sodium 136 L (137-145) mmol/L Potassium 6.3 H* (3.5-5.1) mmol/L Chloride 105 (98-107) mmol/L Carbon Dioxide 24 (22-30) mmol/L Anion Gap 7 mmol/L BUN 45 H (7-17) mg/dL Creatinine 1.43 H (0.52-1.04) mg/dL Est GFR (MDRD) Af Amer 45 (>60 ml/min/1.73 sqM) Est GFR (MDRD) Non-Af 37 (>60 ml/min/1.73 sqM) Glucose 392 H (74-99) mg/dL POC Glucose (mg/dL) 406 H 391 H (75-99) mg/dL POC Glu Milieu Coordinator Lilliam Maldonado Shellene Calcium 9.7 (8.4-10.2) mg/dL Total Bilirubin 0.3 (0.2-1.3) mg/dL AST 18 (14-36) U/L ALT 37 (9-52) U/L Alkaline Phosphatase 104 (38-126) U/L Total Protein 6.8 (6.3-8.2) g/dL Albumin 3.8 (3.5-5.0) g/dL Acetone, Qual Negative (Negative) 08/15/17 08/15/17 08/15/17 Range/Units 15:42 17:26 18:27 WBC 7.9 (3.8-10.6) k/uL RBC 3.14 L (3.80-5.40) m/uL Hgb 9.2 L (11.4-16.0) gm/dL Hct 27.9 L (34.0-46.0) % MCV 88.7 (80.0-100.0) fL MCH 29.4 (25.0-35.0) pg MCHC 33.2 (31.0-37.0) g/dL RDW 14.4 (11.5-15.5) % Plt Count 277 (150-450) k/uL Neutrophils % 73 % Lymphocytes % 16 % Monocytes % 5 % Eosinophils % 4 % Basophils % 1 % Neutrophils # 5.8 (1.3-7.7) k/uL Lymphocytes # 1.3 (1.0-4.8) k/uL Monocytes # 0.4 (0-1.0) k/uL Eosinophils # 0.3 (0-0.7) k/uL Basophils # 0.0 (0-0.2) k/uL Sodium (137-145) mmol/L Potassium (3.5-5.1) mmol/L Chloride (98-107) mmol/L Carbon Dioxide (22-30) mmol/L Anion Gap mmol/L BUN (7-17) mg/dL Creatinine (0.52-1.04) mg/dL Est GFR (MDRD) Af Amer (>60 ml/min/1.73 sqM) Est GFR (MDRD) Non-Af (>60 ml/min/1.73 sqM) Glucose (74-99) mg/dL POC Glucose (mg/dL) 347 H 295 H (75-99) mg/dL POC Glu Milieu Coordinator Gracia Mckeon Fidencio Hellerelle Calcium (8.4-10.2) mg/dL Total Bilirubin (0.2-1.3) mg/dL AST (14-36) U/L ALT (9-52) U/L Alkaline Phosphatase (38-126) U/L Total Protein (6.3-8.2) g/dL Albumin (3.5-5.0) g/dL Acetone, Qual (Negative) Disposition Clinical Impression: Poorly controlled diabetes mellitus Disposition: HOME SELF-CARE Condition: Stable Instructions: Diabetic Kidney Disease (ED), Type 1 Diabetes in Adults (ED) Additional Instructions: Increase fluids, take medications as directed continue checking sugars frequently. Follow-up with your family physician. 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 Referrals: Gale Amin MD [Primary Care Provider] - 1-2 days Time of Disposition: 18:45
[2017-08-15] MEDS ORDERED: SODIUM CHLORIDE 0.9% 500 ML IV STA ×2 (15:27→16:06)
[2017-08-15] MEDS ORDERED: INSULIN ASPART 100 UNIT/ML 1 ML 10 ML VIAL SQ ONE (15:43)
[2017-08-15 15:52] LABS: Basophils % (A) 1 %; CH 30.3; CHCM 34.3; Eosinophils # (A) 0.3 k/uL (0-0.7); Eosinophils % (A) 4 %; HCT 27.9 % (34.0-46.0); HDW 2.85; HGB 9.2 gm/dL (11.4-16.0); Luc # (Auto) 0.09; Luc % (Auto) 1; Lymphocytes # (A) 1.3 k/uL (1.0-4.8); Lymphocytes % (A) 16 %; MCH 29.4 pg (25.0-35.0); MCHC 33.2 g/dL (31.0-37.0); MCV 88.7 fL (80.0-100.0); Mean Platelet Volume 7.4; Monocytes # (A) 0.4 k/uL (0-1.0); Monocytes % (A) 5 %; Neutrophils # (A) 5.8 k/uL (1.3-7.7); Neutrophils % (A) 73 %; RBC 3.14 m/uL (3.80-5.40); RDW 14.4 % (11.5-15.5); WBC 7.9 k/uL (3.8-10.6); WBC (Perox) 8.15
[2017-08-15 15:52] LABS: Glucose,Whole Blood 391 mg/dL (75-99)
[2017-08-15 16:04] LABS: ALT 37 U/L (9-52); AST 18 U/L (14-36); Alkaline Phosphatase 104 U/L (38-126); Anion Gap 7 mmol/L; Blood Urea Nitrogen 45 mg/dL (7-17); Calcium 9.7 mg/dL (8.4-10.2); Carbon Dioxide 24 mmol/L (22-30); Chloride 105 mmol/L (98-107); Glucose 392 mg/dL (74-99); Non-African American GFR(MDRD) 37 (>60 ml/min/1.73 sqM); Sodium 136 mmol/L (137-145); Total Bilirubin 0.3 mg/dL (0.2-1.3); Total Protein 6.8 g/dL (6.3-8.2)
[2017-08-15 16:06] LABS: Potassium 6.3 mmol/L (3.5-5.1)
[2017-08-15] MEDS ORDERED: ALBUTEROL NEBULIZED 2.5 MG/3 ML INHALATION STA (16:16)
[2017-08-15] MEDS ORDERED: SODIUM POLYSTYRENE SULFONATE 15 GM/60 ML BOTTLE PO ONE (16:18)
[2017-08-15] MEDS ORDERED: DEXTROSE 5% IN WATER 1,000 ML with SODIUM BICARB (1 MEQ/ML) 50 ML IV SCH (16:30)
[2017-08-15 17:30] LABS: Glucose,Whole Blood 347 mg/dL (75-99)
[2017-08-15] MEDS ORDERED: SODIUM CHLORIDE 0.9% 1,000 ML IV STA (18:16)
[2017-08-15 18:28] LABS: Glucose,Whole Blood 295 mg/dL (75-99)
[2017-08-15 19:15] VITALS: BP 167/87; PULSE 87; TEMP 97.5
== END 2017-08-15 19:14 | disposition home or self-care (01) ==
LOC: EC 14:36
DX: E11.9 Type 2 diabetes mellitus without complications (principal); I25.10 Atherosclerotic heart disease of native coronary artery without angina pectoris; E78.5 Hyperlipidemia, unspecified; I10 Essential (primary) hypertension; F41.9 Anxiety disorder, unspecified; Z79.4 Long term (current) use of insulin; Z79.82 Long term (current) use of aspirin; Z79.899 Other long term (current) drug therapy; Z88.1 Allergy status to other antibiotic agents; Z88.5 Allergy status to narcotic agent; Z88.2 Allergy status to sulfonamides; Z91.040 Latex allergy status; Z91.048 Other nonmedicinal substance allergy status
CPT/HCPCS: 36415; 80053; 82009; 83036; 85025; 94640; 96361; 96374; 99285

== ENCOUNTER 2017-09-20 16:13 | Inpatient (IN) | payer OTHER ==
[2017-09-20] MEDS ORDERED: NITROGLYCERIN OINT 1 INCH/GM PACKET TOPICAL STA (17:22)
[2017-09-20] MEDS ORDERED: ASPIRIN 81 MG PO STA (17:23)
--- NOTE | 2017-09-20 17:26 | ED ---
General Adult HPI - General Chief complaint: Shortness of Breath Stated complaint: SOB Time Seen by Provider: 09/20/17 17:14 Source: patient, RN notes reviewed Mode of arrival: wheelchair Limitations: no limitations - History of Present Illness Initial comments: Patient is a pleasant [age]-year-old female presenting to the emergency Department with dyspnea. Symptoms started a couple of days ago. Symptoms do worsen with exertion. Patient is unable to lie flat however that is chronic. No leg pain or leg swelling. Patient did have similar symptoms once previously associated with CHF. Patient has only minimal discomfort of her left upper chest. This is described as pressure. - Related Data Home Medications Medication Instructions Recorded Confirmed Loratadine [Claritin] 10 mg PO DAILY 01/05/15 09/20/17 Aspirin 81 mg PO DAILY 04/16/15 09/20/17 Atorvastatin [Lipitor] 80 mg PO HS 10/14/15 09/20/17 Insulin Glulisine [Apidra] 15 unit SQ TID 11/05/15 09/20/17 Insulin Glargine [Lantus] 50 unit SQ HS 01/22/17 09/20/17 Furosemide [Lasix] 40 mg PO BID 08/15/17 09/20/17 amLODIPine [Norvasc] 5 mg PO BID 08/15/17 09/20/17 hydrALAZINE HCL [Apresoline] 50 mg PO BID 08/15/17 09/20/17 Fluticasone Propionate [Flonase 2 spray EA NOSTRIL DAILY 09/20/17 09/20/17 Allergy Relief] Lisinopril [Zestril] 20 mg PO BID 09/20/17 09/20/17 Ranitidine HCl 150 mg PO BID 09/20/17 09/20/17 Previous Rx's Medication Instructions Recorded Metoprolol Tartrate [Lopressor] 75 mg PO BID #60 tablet 01/24/17 Allergies Allergy/AdvReac Type Severity Reaction Status Date / Time cephalexin monohydrate Allergy Rash/Hives Verified 09/20/17 16:44 [From Keflex] ciprofloxacin [From Cipro] Allergy Swelling Verified 09/20/17 16:44 ciprofloxacin HCl Allergy Swelling Verified 09/20/17 16:44 [From Cipro] codeine Allergy Unknown Verified 09/20/17 16:44 latex Allergy Itching Verified 09/20/17 16:44 sulfamethoxazole Allergy Itching Verified 09/20/17 16:44 [From Bactrim] trimethoprim [From Bactrim] Allergy Itching Verified 09/20/17 16:44 adhesive tape AdvReac Itching Verified 09/20/17 16:44 Review of Systems ROS Statement: Those systems with pertinent positive or pertinent negative responses have been documented in the HPI. ROS Other: All systems not noted in ROS Statement are negative. Constitutional: Denies: fever Eyes: Denies: eye pain ENT: Denies: ear pain Respiratory: Reports: dyspnea. Denies: cough Cardiovascular: Denies: palpitations Endocrine: Reports: fatigue Gastrointestinal: Denies: abdominal pain Genitourinary: Denies: dysuria Musculoskeletal: Denies: back pain Skin: Denies: rash Neurological: Denies: weakness Past Medical History Past Medical History: Coronary Artery Disease (CAD), Diabetes Mellitus, Hyperlipidemia, Hypertension Additional Past Medical History / Comment(s): edema, seasonal allergies, wound TASIA lower legS PT STATED RT KYLE CONSIDERED HEALED AND LT KYLE IS WRAPPED-SEES DR ZELAYA FOR WOUND CARE. Eye surgery to cauterize bleeding November, Last Myocardial Infarction Date:: 01/10/15 History of Any Multi-Drug Resistant Organisms: None Reported Past Surgical History: Heart Catheterization With Stent Additional Past Surgical History / Comment(s): PT HAD STENT TO DISTAL RCA IN DECEMBER 2014 carpal tunnel bilateral hands Past Anesthesia/Blood Transfusion Reactions: Family History of Problems w/ Anesthesia, Motion Sickness Additional Past Anesthesia/Blood Transfusion Reaction / Comment(s): states mother had difficulty coming out of anesthesia Date of Last Stent Placement:: 12/30 Past Psychological History: Anxiety Smoking Status: Never smoker Past Alcohol Use History: None Reported Past Drug Use History: None Reported - Past Family History Sister(s) Family Medical History: Diabetes Mellitus, Hypertension, Myocardial Infarction ( [place]), Vascular Disorder Additional Family Medical History / Comment(s): post procedure of five stents Mother Family Medical History: CVA/TIA, Diabetes Mellitus, Myocardial Infarction ([place]) Additional Family Medical History / Comment(s): TIA's, PVD. Mother at age 65yrs. Father Family Medical History: Dementia, Diabetes Mellitus, Hypertension Additional Family Medical History / Comment(s): Father at age 72 yrs. General Exam Limitations: no limitations General appearance: alert, in no apparent distress Head exam: Present: atraumatic Eye exam: Present: normal appearance, PERRL ENT exam: Present: normal oropharynx Neck exam: Present: normal inspection Respiratory exam: Present: decreased breath sounds Cardiovascular Exam: Present: regular rate, normal rhythm GI/Abdominal exam: Present: soft. Absent: tenderness Extremities exam: Present: normal inspection. Absent: pedal edema, calf tenderness Back exam: Present: normal inspection Neurological exam: Present: alert Psychiatric exam: Present: normal affect, normal mood Skin exam: Present: normal color Course Vital Signs 09/20/17 09/20/17 09/20/17 16:17 16:24 16:53 Temperature 97.3 F L Pulse Rate 87 76 Respiratory 18 20 20 Rate Blood Pressure 172/72 167/87 O2 Sat by Pulse 92 L 95 Oximetry 09/20/17 09/20/17 17:47 18:55 Temperature Pulse Rate 78 86 Respiratory 18 20 Rate Blood Pressure 165/55 155/60 O2 Sat by Pulse 97 99 Oximetry EKG Findings - EKG Comments: EKG Findings:: Normal sinus rhythm 80. [place] 182. QRS 84. QT 404. QTC 465. Normal axis. Normal QRS. Nonspecific ST-T. Medical Decision Making - Medical Decision Making Patient is Hemoccult-positive and will need to be evaluated for GI bleed. Patient reevaluated and updated. Case was discussed in detail with Dr. buchanan, who will admit for hospital call. - Lab Data Result diagrams: 09/20/17 17:00 09/20/17 17:00 Lab Results 09/20/17 09/20/17 09/20/17 Range/Units 17:00 17:00 17:00 WBC 10.9 H (3.8-10.6) k/uL RBC 2.75 L (3.80-5.40) m/uL Hgb 8.0 L (11.4-16.0) gm/dL Hct 24.5 L (34.0-46.0) % MCV 89.0 (80.0-100.0) fL MCH 28.9 (25.0-35.0) pg MCHC 32.5 (31.0-37.0) g/dL RDW 13.9 (11.5-15.5) % Plt Count 275 (150-450) k/uL Neutrophils % 84 % Lymphocytes % 10 % Monocytes % 4 % Eosinophils % 2 % Basophils % 0 % Neutrophils # 9.1 H (1.3-7.7) k/uL Lymphocytes # 1.0 (1.0-4.8) k/uL Monocytes # 0.4 (0-1.0) k/uL Eosinophils # 0.2 (0-0.7) k/uL Basophils # 0.0 (0-0.2) k/uL PT (9.0-12.0) sec INR (<1.2) APTT (22.0-30.0) sec Sodium 141 (137-145) mmol/L Potassium 5.2 H (3.5-5.1) mmol/L Chloride 109 H (98-107) mmol/L Carbon Dioxide 22 (22-30) mmol/L Anion Gap 10 mmol/L BUN 53 H (7-17) mg/dL Creatinine 1.70 H (0.52-1.04) mg/dL Est GFR (MDRD) Af Amer 37 (>60 ml/min/1.73 sqM) Est GFR (MDRD) Non-Af 31 (>60 ml/min/1.73 sqM) Glucose 276 H (74-99) mg/dL Calcium 9.0 (8.4-10.2) mg/dL Total Bilirubin 0.3 (0.2-1.3) mg/dL AST 17 (14-36) U/L ALT 48 (9-52) U/L Alkaline Phosphatase 90 (38-126) U/L Total Creatine Kinase 157 H (30-135) U/L CK-MB (CK-2) 2.1 (0.0-2.4) ng/mL CK-MB (CK-2) Rel Index 1.3 Troponin I <0.012 (0.000-0.034) ng/mL NT-Pro-B Natriuret Pep pg/mL Total Protein 6.2 L (6.3-8.2) g/dL Albumin 3.4 L (3.5-5.0) g/dL Stool Occult Blood (Negative) 09/20/17 09/20/17 09/20/17 Range/Units 17:00 17:00 19:00 WBC (3.8-10.6) k/uL RBC (3.80-5.40) m/uL Hgb (11.4-16.0) gm/dL Hct (34.0-46.0) % MCV (80.0-100.0) fL MCH (25.0-35.0) pg MCHC (31.0-37.0) g/dL RDW (11.5-15.5) % Plt Count (150-450) k/uL Neutrophils % % Lymphocytes % % Monocytes % % Eosinophils % % Basophils % % Neutrophils # (1.3-7.7) k/uL Lymphocytes # (1.0-4.8) k/uL Monocytes # (0-1.0) k/uL Eosinophils # (0-0.7) k/uL Basophils # (0-0.2) k/uL PT 10.0 (9.0-12.0) sec INR 1.0 (<1.2) APTT 22.1 (22.0-30.0) sec Sodium (137-145) mmol/L Potassium (3.5-5.1) mmol/L Chloride (98-107) mmol/L Carbon Dioxide (22-30) mmol/L Anion Gap mmol/L BUN (7-17) mg/dL Creatinine (0.52-1.04) mg/dL Est GFR (MDRD) Af Amer (>60 ml/min/1.73 sqM) Est GFR (MDRD) Non-Af (>60 ml/min/1.73 sqM) Glucose (74-99) mg/dL Calcium (8.4-10.2) mg/dL Total Bilirubin (0.2-1.3) mg/dL AST (14-36) U/L ALT (9-52) U/L Alkaline Phosphatase (38-126) U/L Total Creatine Kinase (30-135) U/L CK-MB (CK-2) (0.0-2.4) ng/mL CK-MB (CK-2) Rel Index Troponin I (0.000-0.034) ng/mL NT-Pro-B Natriuret Pep 1400 pg/mL Total Protein (6.3-8.2) g/dL Albumin (3.5-5.0) g/dL Stool Occult Blood Positive H (Negative) - Radiology Data Radiology results: image reviewed (Chest x-ray shows CHF with pleural effusion.) Disposition Clinical Impression: Congestive heart failure, GI hemorrhage Disposition: ADMITTED IP TO THIS HOSP Referrals: Gale Amin MD [Primary Care Provider] - 1-2 days Decision Time: 19:28
[2017-09-20 17:39] LABS: Basophils % (A) 0 %; Eosinophils # (A) 0.2 k/uL (0-0.7); Eosinophils % (A) 2 %; HCT 24.5 % (34.0-46.0); Lymphocytes % (A) 10 %; MCH 28.9 pg (25.0-35.0); MCHC 32.5 g/dL (31.0-37.0); Mean Platelet Volume 7.2; Monocytes # (A) 0.4 k/uL (0-1.0); Monocytes % (A) 4 %; Neutrophils # (A) 9.1 k/uL (1.3-7.7); Neutrophils % (A) 84 %; Platelet Count 275 k/uL (150-450); RBC 2.75 m/uL (3.80-5.40); RDW 13.9 % (11.5-15.5); WBC 10.9 k/uL (3.8-10.6)
[2017-09-20 17:43] LABS: Partial Thromboplastin Time 22.1 sec (22.0-30.0)
[2017-09-20 17:44] LABS: Albumin 3.4 g/dL (3.5-5.0); Potassium 5.2 mmol/L (3.5-5.1); Total Bilirubin 0.3 mg/dL (0.2-1.3); Total Protein 6.2 g/dL (6.3-8.2)
[2017-09-20 18:00] LABS: Creatine Kinase 157 U/L (30-135)
--- NOTE | 2017-09-20 18:09 | XR ---
EXAMINATION TYPE: XR chest 2V DATE OF EXAM: 09/20/2017 COMPARISON: 01/22/2017 HISTORY: Short of breath TECHNIQUE: Frontal and lateral views of the chest are obtained. FINDINGS: Heart appears enlarged. There is pulmonary vascular congestion. There is blunting of costo phrenic angles. Thoracic aorta is atheromatous. Bony thorax is intact. IMPRESSION: Congestive heart failure with pleural effusions. This appears slightly worse than last e xam.
[2017-09-20 18:13] LABS: Creatine Kinase MB 2.1 ng/mL (0.0-2.4); Troponin I <0.012 ng/mL (0.000-0.034)
[2017-09-20] MEDS ORDERED: FUROSEMIDE 10 MG/ML 4 ML VIAL IV SCH (20:00)
[2017-09-20] MEDS ORDERED: CALCIUM CARBONATE 500 MG CHEWABLE PO PRN (20:02)
[2017-09-20] MEDS ORDERED: traMADol 50 MG TAB PO PRN (20:02)
[2017-09-20] MEDS ORDERED: BENZOCAINE/MENTHOL LOZENG 1 EACH LOZENGE MUCOUS MEM PRN (20:02)
[2017-09-20] MEDS ORDERED: ACETAMINOPHEN TAB 325 MG TAB PO PRN (20:02)
[2017-09-20] MEDS ORDERED: NALOXONE 0.4 MG/ML 1 ML VIAL IV PRN (20:02)
[2017-09-20] MEDS ORDERED: ONDANSETRON 4 MG/2 ML VIAL IVP PRN (20:02)
[2017-09-20] MEDS ORDERED: BISACODYL 5 MG TABLET.DR PO PRN (20:02)
[2017-09-20] MEDS ORDERED: MELATONIN 3 MG TABLET PO PRN (20:02)
[2017-09-20 20:16] LABS: Glucose,Whole Blood 345 mg/dL (75-99)
--- NOTE | 2017-09-20 20:39 | P.HPIM ---
History of Present Illness H&P Date: 09/20/17 Chief Complaint: shortness of breath Patient is a 62-year-old female with a past medical history of coronary artery disease status post stenting, congestive heart failure with ejection fraction 55-60%, anemia, and chronic kidney disease who presented to the emergency department with complaints of shortness of breath. In the ER she underwent an extensive evaluation. On her initial vital signs she was found to be slightly hypertensive with a blood pressure of 172/72. Initial laboratory analysis showed hemoglobin of 8, positive Hemoccult, potassium of 5.2, and a creatinine of 1.7 up from her baseline of 1.4. Her EKG was unremarkable. Chest x-ray showed mild congestive heart failure. She was given a dose of aspirin and nitro in the ER. There was concern for acute exacerbation of CHF and possible GI hemorrhage and arrangements were made for admission. Patient seen and examined at bedside. She complains of shortness of breath that has been worsening for the last 4 days. It is worse with movement and better with rest. She reports a feeling of tightness in her chest and congestion when laying flat but is not short of breath. She has had some chills and felt shaky. She has had a nonproductive cough, no wheeze. She also complains of a sore throat, nasal congestion, and rhinorrhea. She has recently completed a course of antibiotics for sinusitis with Dr. Amin. She also complains of heart palpitations, she is not having any overt chest pain but does describe a fullness when laying flat. She denies any significant lower extremity edema along she wears her compression stockings. She also reports feeling fatigued for the last several months. She states that her legs feel heavy when she is up and walking around. She denies any lightheadedness, dizziness, or syncopal events. She has been taking her lasxi and has not missed and doses She states that Dr. Amin has been following her blood counts for the last 6-8 weeks. She is aware that they have been falling. She states that she has been urging her to get an outpatient colonoscopy done but the patient has been unable to do so due to difficulty with transportation. She did perform an outpatient fecal occult blood which was negative 2. She states Dr. Beasley had looked at her iron stores which were with which were within normal, but she believes her B12 level was low. She has not been taking any new medications for this. She was supposed to follow back with Dr. Beasley tomorrow. She has not had a colonoscopy in the past. She has not had any bright red blood per rectum , dark tarry stools, diarrhea, or constipation. She denies any abdominal pain. She has also been struggling with elevated blood pressures for the last year in her typical blood pressures are in the 170s. She follows with Dr. Núñez at baseline. She also states she saw an community health program coordinator for the first time today Dr. Samuels secondary to her blood sugars being elevated. She is also supposed to start seeing Dr. John secondary to her creatinine increasing. She is supposed to be getting an outpatient sleep study but has not been able to do this either as she care for her handicap niece. Review of Systems Pertinent positives and negatives as per HPI, all other 12 point review of systems is negative Past Medical History Past Medical History: Coronary Artery Disease (CAD), Heart Failure, Diabetes Mellitus, Hyperlipidemia, Hypertension, Myocardial Infarction ([place]) Additional Past Medical History / Comment(s): edema, seasonal allergies, Diabetic ulcer-SEES DR ZELAYA FOR WOUND CARE, anemia, neuropathy, CKD Last Myocardial Infarction Date:: 01/10/15 History of Any Multi-Drug Resistant Organisms: None Reported Past Surgical History: Heart Catheterization With Stent Additional Past Surgical History / Comment(s): PT HAD STENT TO DISTAL RCA IN DECEMBER 2014, carpal tunnel bilateral hands, Eye surgery to cauterize bleeding November, Past Anesthesia/Blood Transfusion Reactions: Family History of Problems w/ Anesthesia, Motion Sickness Additional Past Anesthesia/Blood Transfusion Reaction / Comment(s): states mother had difficulty coming out of anesthesia Date of Last Stent Placement:: 12/30 Past Psychological History: Anxiety Smoking Status: Never smoker Past Alcohol Use History: None Reported Past Drug Use History: None Reported Additional History: Lives with her niece who is handicapped and she cares for, and her nephew. Does not use any assistive devices. - Past Family History Sister(s) Family Medical History: Diabetes Mellitus, Hypertension, Myocardial Infarction ( [place]), Vascular Disorder Additional Family Medical History / Comment(s): post procedure of five stents Mother Family Medical History: CVA/TIA, Diabetes Mellitus, Myocardial Infarction ([place]) Additional Family Medical History / Comment(s): TIA's, PVD. Mother at age 65yrs. Father Family Medical History: Dementia, Diabetes Mellitus, Hypertension Additional Family Medical History / Comment(s): Father at age 72 yrs. Medications and Allergies Home Medications Medication Instructions Recorded Confirmed Type Loratadine [Claritin] 10 mg PO DAILY 01/05/15 09/20/17 History Aspirin 81 mg PO DAILY 04/16/15 09/20/17 History Atorvastatin [Lipitor] 80 mg PO HS 10/14/15 09/20/17 History Insulin Glulisine [Apidra] 15 unit SQ TID 11/05/15 09/20/17 History Insulin Glargine [Lantus] 50 unit SQ HS 01/22/17 09/20/17 History Metoprolol Tartrate [Lopressor] 75 mg PO BID #60 tablet 01/24/17 09/20/17 Rx Furosemide [Lasix] 40 mg PO BID 08/15/17 09/20/17 History amLODIPine [Norvasc] 5 mg PO BID 08/15/17 09/20/17 History hydrALAZINE HCL [Apresoline] 50 mg PO BID 08/15/17 09/20/17 History Fluticasone Propionate [Flonase 2 spray EA NOSTRIL DAILY 09/20/17 09/20/17 History Allergy Relief] Lisinopril [Zestril] 20 mg PO BID 09/20/17 09/20/17 History Ranitidine HCl 150 mg PO BID 09/20/17 09/20/17 History Allergies Allergy/AdvReac Type Severity Reaction Status Date / Time cephalexin monohydrate Allergy Rash/Hives Verified 09/20/17 16:44 [From Keflex] ciprofloxacin [From Cipro] Allergy Swelling Verified 09/20/17 16:44 ciprofloxacin HCl Allergy Swelling Verified 09/20/17 16:44 [From Cipro] codeine Allergy Unknown Verified 09/20/17 16:44 latex Allergy Itching Verified 09/20/17 16:44 sulfamethoxazole Allergy Itching Verified 09/20/17 16:44 [From Bactrim] trimethoprim [From Bactrim] Allergy Itching Verified 09/20/17 16:44 adhesive tape AdvReac Itching Verified 09/20/17 16:44 Physical Exam Osteopathic Statement: *. No significant issues noted on an osteopathic structural exam other than those noted in the History and Physical/Consult. Vitals: Vital Signs Temp Pulse Resp BP Pulse Ox 09/20/17 19:00 97.7 F 90 20 187/85 96 09/20/17 18:55 86 20 155/60 99 09/20/17 17:47 78 18 165/55 97 09/20/17 16:53 76 20 167/87 95 09/20/17 16:24 20 09/20/17 16:17 97.3 F L 87 18 172/72 92 L Intake and Output 09/20/17 09/20/17 09/20/17 06:59 14:59 22:59 Other: Weight 117.934 kg Patient Weight 09/21/17 06:59 Weight 117.934 kg General: non toxic, mild distress, appears at stated age, Obese Derm: no unusual rashes/lesions no unusual ecchymoses, warm, dryHead: atraumatic , normocephalic, symmetric Eyes: EOMI, no lid lag, anicteric sclera, pupils equal round reactive to light ENT: Nose and ears atraumatic, no thrush, + pharyngeal erythema, + Post nasal drip Neck: No thyromegaly, no cervical lymphadenopathy, trachea midline, supple Mouth: no lip lesion, mucus membranes moist Cardiovascular: S1S2 reg, no murmur, positive posterior tibial pulse bilateral, edema, capillary refill less than 2 seconds Lungs: decreased bs b/l bases , no accessory muscle use Abdominal: soft, nontender to palpation, no guarding, no appreciable organomegaly, normal bowel sounds Ext: no gross muscle atrophy, muscle strength 5 out of 5 in all 4 extremities grossly, no contractures, Neuro: CN II-XI grossly intact, light touch intact all 4 extremities, finger to nose within normal limits, Psych: Alert, oriented, appropriate affect] Results CBC & Chem 7: 09/20/17 17:00 09/20/17 17:00 Labs: Abnormal Lab Results - Last 24 Hours (Table) 09/20/17 09/20/17 09/20/17 Range/Units 17:00 17:00 17:00 WBC 10.9 H (3.8-10.6) k/uL RBC 2.75 L (3.80-5.40) m/uL Hgb 8.0 L (11.4-16.0) gm/dL Hct 24.5 L (34.0-46.0) % Neutrophils # 9.1 H (1.3-7.7) k/uL Potassium 5.2 H (3.5-5.1) mmol/L Chloride 109 H (98-107) mmol/L BUN 53 H (7-17) mg/dL Creatinine 1.70 H (0.52-1.04) mg/dL Glucose 276 H (74-99) mg/dL Total Creatine Kinase 157 H (30-135) U/L Total Protein 6.2 L (6.3-8.2) g/dL Albumin 3.4 L (3.5-5.0) g/dL Stool Occult Blood (Negative) 09/20/17 Range/Units 19:00 WBC (3.8-10.6) k/uL RBC (3.80-5.40) m/uL Hgb (11.4-16.0) gm/dL Hct (34.0-46.0) % Neutrophils # (1.3-7.7) k/uL Potassium (3.5-5.1) mmol/L Chloride (98-107) mmol/L BUN (7-17) mg/dL Creatinine (0.52-1.04) mg/dL Glucose (74-99) mg/dL Total Creatine Kinase (30-135) U/L Total Protein (6.3-8.2) g/dL Albumin (3.5-5.0) g/dL Stool Occult Blood Positive H (Negative) Comments: EKG reviewed by myself which reveals normal sinus rhythm at a rate of [address]-T wave changes, normal access, normal intervals Chest x-ray: report reviewed, image reviewed Thrombosis Risk Factor Assmnt - DVT/VTE Prophylaxis DVT/VTE Prophylaxis: Pharmacologic Prophylaxis ordered - Choose All That Apply Each Factor Represents 1 point: Obesity (BMI >25), Swollen legs (current) Each Risk Factor Represents 2 Points: Age 61-74 years Thrombosis Risk Factor Assessment Total Risk Factor Score: 4 Thrombosis Risk Factor Assessment Level: Moderate Risk Assessment and Plan Assessment: Acute exacerbation of diastolic congestive heart failure, last known ejection fraction 55-60% -Lasix 60 mg every 12 hours, strict I's and O's, daily weight -Hold KEN inhibitor with increased creatinine, continue beta mono -Repeat echocardiogram -Cardiology consultation Normocytic anemia -Known to patient and has been following with Dr. Amin -Is supposed to be getting an outpatient colonoscopy -Believes her B12 level was extremely low -Check B12, RBC folate, iron studies, and reticulocyte count. Patient states Dr. Beasley told her she was not producing red blood cells. -Had positive fecal occult here but was done with the finger test, had outpatient fecal occult screening 2 which was negative in August 2017 - follow HgB - would hold off on GI consult at this point in time and consult if blood in stool or rapid change in HgB Hyperkalemia - hold ACEI - Lasix - recheck in [place] Acute on chronic sinusitis - continue flonase and claritin, has recently completed a course of abx -add afrin X 4 doses - if WBC continues to increase consider abx - consider singulair if no improvement with afrin. ILANA on CKD 3 - Creatinine has been rapidly rising since last October from one now to 1.7 -Was scheduled to see Dr. John hasn't outpatient in the near future -Avoid additional nephrotoxic agents, hold KEN inhibitor -Suspect secondary to diabetic nephropathy versus cardiorenal syndrome -Follow creatinine closely with diuresis -Had renal Doppler which showed possible chronic kidney disease and left-sided renal artery stenosis Hypertension, uncontrolled -Patient states her blood pressures are typically in the 160s to 170s at home and she's been following with Dr. Núñez -Continue with Norvasc, metoprolol, hydralazine, hold KEN inhibitor with worsening creatinine -Is supposed to be having an outpatient sleep study Diabetes mellitus type 2 uncontrolled -Recent hemoglobin A1c 9 per patient -Continue with long-acting and 3 times daily rapid acting insulin, initiate sliding scale insulin to 8 with coverage -Diabetic education referral -Check hemoglobin A1c -Saw Dr. Santa for the first time today Morbid obesity BMI 40.7 - structured out patient weight loss Chronic: edena HLD neuropathy seasonal allergies Surrogate decision-maker: DaughterAakash Suárez CODE STATUS:full DVT prophylaxis: Lovenox Discussed with: patient, ED nursing, ED physician Anticipated discharge:24-[address]: home A total of 70 minutes was spent on the care of this complex patient more than 50 % of the time was spent in counseling and care coordination.
[2017-09-20] MEDS ORDERED: INSULIN DETEMIR 100 UNIT/ML 10 ML VIAL SQ SCH (21:00)
[2017-09-20 21:19] LABS: Glucose,Whole Blood 323 mg/dL (75-99)
[2017-09-20] MEDS: ATORVASTATIN 80 MG TAB PO SCH (21:36)
[2017-09-20] MEDS: PANTOPRAZOLE 40 MG/10 ML VIAL IVP SCH (21:36)
[2017-09-20] MEDS: hydrALAZINE HCL 50 MG TAB PO SCH (21:36)
[2017-09-20] MEDS: amLODIPine 5 MG TAB PO SCH (21:36)
[2017-09-20] MEDS: FUROSEMIDE 10 MG/ML 10 ML VIAL IV SCH (21:36)
[2017-09-20] MEDS: METOPROLOL TARTRATE 25 MG TAB PO SCH (21:36)
[2017-09-20] MEDS: INSULIN ASPART 100 UNIT/ML 1 ML 10 ML VIAL SQ SCH (21:36)
[2017-09-20 23:34] LABS: Creatine Kinase MB 1.6 ng/mL (0.0-2.4); Troponin I <0.012 ng/mL (0.000-0.034)
[2017-09-21] MEDS: OXYMETAZOLINE 0.05% NASL SPRAY 1 SPRAY BOTTLE NASAL SCH ×3 (01:15→21:08)
[2017-09-21 05:41] LABS: Basophils % (A) 0 %; Eosinophils # (A) 0.2 k/uL (0-0.7); Eosinophils % (A) 3 %; HCT 22.6 % (34.0-46.0); HGB 7.3 gm/dL (11.4-16.0); Lymphocytes # (A) 1.3 k/uL (1.0-4.8); Lymphocytes % (A) 14 %; MCH 28.9 pg (25.0-35.0); MCHC 32.4 g/dL (31.0-37.0); MCV 89.4 fL (80.0-100.0); Mean Platelet Volume 7.3; Monocytes # (A) 0.5 k/uL (0-1.0); Monocytes % (A) 5 %; Neutrophils # (A) 7.2 k/uL (1.3-7.7); Neutrophils % (A) 77 %; Platelet Count 263 k/uL (150-450); RBC 2.52 m/uL (3.80-5.40); RDW 13.8 % (11.5-15.5); WBC 9.4 k/uL (3.8-10.6)
[2017-09-21 05:56] LABS: Calcium 8.7 mg/dL (8.4-10.2); Potassium 5.1 mmol/L (3.5-5.1); Total Bilirubin 0.3 mg/dL (0.2-1.3); Total Protein 5.6 g/dL (6.3-8.2)
[2017-09-21 06:12] LABS: Glucose,Whole Blood 262 mg/dL (75-99)
[2017-09-21 06:42] LABS: Creatine Kinase MB 1.1 ng/mL (0.0-2.4); Troponin I 0.015 ng/mL (0.000-0.034)
[2017-09-21] MEDS: INSULIN ASPART 100 UNIT/ML 1 ML 10 ML VIAL SQ SCH ×7 (07:06→22:11)
[2017-09-21] MEDS: FUROSEMIDE 10 MG/ML 10 ML VIAL IV SCH (08:56)
[2017-09-21] MEDS: ENOXAPARIN 40 MG/0.4 ML SYRINGE SQ SCH (08:56)
[2017-09-21] MEDS: amLODIPine 5 MG TAB PO SCH ×2 (08:56→21:08)
[2017-09-21] MEDS: METOPROLOL TARTRATE 25 MG TAB PO SCH ×2 (08:57→21:08)
[2017-09-21] MEDS: hydrALAZINE HCL 50 MG TAB PO SCH ×2 (08:57→21:08)
[2017-09-21] MEDS: LORATADINE 10 MG TAB PO SCH (08:57)
[2017-09-21] MEDS: PANTOPRAZOLE 40 MG/10 ML VIAL IVP SCH (08:58)
[2017-09-21] MEDS: FLUTICASONE 50MCG/SPRAY NASAL 16GM EA NOSTRIL SCH (09:01)
--- NOTE | 2017-09-21 10:04 | P.CRDCN ---
History of Present Illness Consult date: 09/21/17 Requesting physician: Sammi Hilton Consult reason: congestive heart failure Chief complaint: Shortness of breath History of present illness: This is a 62-year-old female who follows with Dr. Núñez in the office. She has a known history of hypertension, hyperlipidemia, diabetes, coronary artery disease with prior stenting of the distal RCA. Patient also has known chronic kidney disease, she also states that she's been being followed as an outpatient because of low hemoglobin but has not yet had a colonoscopy performed. She states that she has no one to drive her for that. She presents to the hospital on this occasion with symptoms of progressively worsening shortness of breath. She also states that she gets intermittent tightness in the chest, symptoms worsen when she is lying flat. Patient also states that she 's noticed an increase in her peripheral edema. For these reasons she came to the hospital for further evaluation. EKG on admission showed a normal sinus rhythm with nonspecific ST-T wave changes. Chest x-ray shows congestive heart failure with pleural effusions. Blood pressure on admission 172/72, heart rate in the 80s. 92% on room air. Laboratory data was reviewed, white blood cell count on admission 10.9, 9.4 this morning. Hemoglobin on admission 8.0, 7.3 this morning. Platelet count 263. Sodium 141, potassium 5.1, BUN 54, creatinine 1.9. BNP level 1400. TSH 1.58. Stool for occult blood was positive. Patient denies having any blood in her stool or black stool. Patient was initiated on IV Lasix in the emergency room, she diuresed well through the night last night. At the time of my examination this morning, patient is sitting up at the side of her bed, states that her breathing is stable. Past Medical History Past Medical History: Coronary Artery Disease (CAD), Heart Failure, Diabetes Mellitus, Hyperlipidemia, Hypertension, Myocardial Infarction ([place]) Additional Past Medical History / Comment(s): edema, seasonal allergies, Diabetic ulcer-SEES DR ZELAYA FOR WOUND CARE, anemia, neuropathy, CKD Last Myocardial Infarction Date:: 01/10/15 History of Any Multi-Drug Resistant Organisms: None Reported Past Surgical History: Heart Catheterization With Stent Additional Past Surgical History / Comment(s): PT HAD STENT TO DISTAL RCA IN DECEMBER 2014, carpal tunnel bilateral hands, Eye surgery to cauterize bleeding November, Past Anesthesia/Blood Transfusion Reactions: Family History of Problems w/ Anesthesia, Motion Sickness Additional Past Anesthesia/Blood Transfusion Reaction / Comment(s): states mother had difficulty coming out of anesthesia Date of Last Stent Placement:: 12/30 Past Psychological History: Anxiety Additional Psychological History / Comment(s): Pt states she lives in her home with her adult neaggie and nephew. She is independent. She uses no assistive device. She drives. Smoking Status: Never smoker Past Alcohol Use History: None Reported Past Drug Use History: None Reported - Past Family History Sister(s) Family Medical History: Diabetes Mellitus, Hypertension, Myocardial Infarction ( [place]), Vascular Disorder Additional Family Medical History / Comment(s): post procedure of five stents Mother Family Medical History: CVA/TIA, Diabetes Mellitus, Myocardial Infarction ([place]) Additional Family Medical History / Comment(s): TIA's, PVD. Mother at age 65yrs. Father Family Medical History: Dementia, Diabetes Mellitus, Hypertension Additional Family Medical History / Comment(s): Father at age 72 yrs. Medications and Allergies Home Medications Medication Instructions Recorded Confirmed Type Loratadine [Claritin] 10 mg PO DAILY 01/05/15 09/20/17 History Aspirin 81 mg PO DAILY 04/16/15 09/20/17 History Atorvastatin [Lipitor] 80 mg PO HS 10/14/15 09/20/17 History Insulin Glulisine [Apidra] 15 unit SQ TID 11/05/15 09/20/17 History Insulin Glargine [Lantus] 50 unit SQ HS 01/22/17 09/20/17 History Metoprolol Tartrate [Lopressor] 75 mg PO BID #60 tablet 01/24/17 09/20/17 Rx Furosemide [Lasix] 40 mg PO BID 08/15/17 09/20/17 History amLODIPine [Norvasc] 5 mg PO BID 08/15/17 09/20/17 History hydrALAZINE HCL [Apresoline] 50 mg PO BID 08/15/17 09/20/17 History Fluticasone Propionate [Flonase 2 spray EA NOSTRIL DAILY 09/20/17 09/20/17 History Allergy Relief] Lisinopril [Zestril] 20 mg PO BID 09/20/17 09/20/17 History Ranitidine HCl 150 mg PO BID 09/20/17 09/20/17 History Allergies Allergy/AdvReac Type Severity Reaction Status Date / Time cephalexin monohydrate Allergy Rash/Hives Verified 09/20/17 16:44 [From Keflex] ciprofloxacin [From Cipro] Allergy Swelling Verified 09/20/17 16:44 ciprofloxacin HCl Allergy Swelling Verified 09/20/17 16:44 [From Cipro] codeine Allergy Unknown Verified 09/20/17 16:44 latex Allergy Itching Verified 09/20/17 16:44 sulfamethoxazole Allergy Itching Verified 09/20/17 16:44 [From Bactrim] trimethoprim [From Bactrim] Allergy Itching Verified 09/20/17 16:44 adhesive tape AdvReac Itching Verified 09/20/17 16:44 Physical Exam Vitals: Vital Signs Temp Pulse Pulse Resp BP BP Pulse Ox 09/21/17 04:00 97.7 F 74 18 153/73 92 L 09/21/17 00:10 91 20 186/75 93 L 09/21/17 00:00 97.1 F L 91 18 142/68 94 L 09/20/17 20:36 98.6 F 89 20 176/72 100 09/20/17 19:00 97.7 F 90 20 187/85 96 09/20/17 18:55 86 20 155/60 99 09/20/17 17:47 78 18 165/55 97 09/20/17 16:53 76 20 167/87 95 09/20/17 16:24 20 09/20/17 16:17 97.3 F L 87 18 172/72 92 L Intake and Output 09/20/17 09/21/17 09/21/17 22:59 06:59 14:59 Intake Total 180 Output Total 600 1150 Balance -600 -1150 180 Intake: Oral 180 Output: Urine 600 1150 Other: Voiding Method Toilet Weight 117.934 kg 128.1 kg PHYSICAL EXAMINATION: HEENT: Head is atraumatic, normocephalic. Pupils equal, round. Neck is supple. There is no elevated jugular venous pressure. HEART EXAMINATION: Heart S1 and S2 systolic ejection murmur is heard CHEST EXAMINATION: Lungs are clear with rales to bilateral bases. ABDOMEN: Soft, ,nontender. Bowel sounds are heard. No organomegaly noted. EXTREMITIES:[ 2+ peripheral pulses with trace to 1+ evidence of peripheral edema , bilateral venous stasis to both lower legs with mild ulcerations noted. NEUROLOGIC patient is awake, alert and oriented -3. . Results 09/21/17 05:08 09/21/17 05:08 Cardiac Enzymes 09/20/17 09/20/17 09/20/17 Range/Units 17:00 17:00 22:39 AST 17 (14-36) U/L CK-MB (CK-2) 2.1 1.6 (0.0-2.4) ng/mL Troponin I <0.012 <0.012 (0.000-0.034) ng/mL 09/21/17 09/21/17 Range/Units 05:08 05:08 AST 12 L (14-36) U/L CK-MB (CK-2) 1.1 (0.0-2.4) ng/mL Troponin I 0.015 (0.000-0.034) ng/mL Coagulation 09/20/17 Range/Units 17:00 PT 10.0 (9.0-12.0) sec APTT 22.1 (22.0-30.0) sec Lipids 09/21/17 Range/Units 05:08 Triglycerides 72 (<150) mg/dL Cholesterol 87 (<200) mg/dL HDL Cholesterol 30 L (40-60) mg/dL CBC 09/20/17 09/21/17 Range/Units 17:00 05:08 WBC 10.9 H 9.4 (3.8-10.6) k/uL RBC 2.75 L 2.52 L (3.80-5.40) m/uL Hgb 8.0 L 7.3 L (11.4-16.0) gm/dL Hct 24.5 L 22.6 L (34.0-46.0) % Plt Count 275 263 (150-450) k/uL Comprehensive Metabolic Panel 09/20/17 09/21/17 Range/Units 17:00 05:08 Sodium 141 141 (137-145) mmol/L Potassium 5.2 H 5.1 (3.5-5.1) mmol/L Chloride 109 H 109 H (98-107) mmol/L Carbon Dioxide 22 23 (22-30) mmol/L BUN 53 H 54 H (7-17) mg/dL Creatinine 1.70 H 1.90 H (0.52-1.04) mg/dL Glucose 276 H 248 H (74-99) mg/dL Calcium 9.0 8.7 (8.4-10.2) mg/dL AST 17 12 L (14-36) U/L ALT 48 49 (9-52) U/L Alkaline Phosphatase 90 75 (38-126) U/L Total Protein 6.2 L 5.6 L (6.3-8.2) g/dL Albumin 3.4 L 3.0 L (3.5-5.0) g/dL Current Medications Generic Name Dose Route Start Last Admin Trade Name Freq PRN Reason Stop Dose Admin Acetaminophen 650 mg 09/20/17 20:02 Tylenol Tab PO Q6HR PRN Mild Pain or Fever > 100.5 Alprazolam 0.25 mg 09/20/17 20:02 Xanax PO Q6HR PRN Anxiety Amlodipine Besylate 5 mg 09/20/17 21:00 09/21/17 08:56 Norvasc PO 5 mg BID ELISABETH Administration Atorvastatin Calcium 80 mg 09/20/17 21:00 09/20/17 21:36 Lipitor PO 80 mg HS ELISABETH Administration Benzocaine/Menthol 1 each 09/20/17 20:02 Cepacol Lozenge MUCOUS MEM Q4HR PRN Sore Throat Bisacodyl 5 mg 09/20/17 20:02 Dulcolax PO DAILY PRN Constipation Calcium Carbonate/Glycine 1,000 mg 09/20/17 20:02 Tums PO Q4HR PRN Dyspepsia Enoxaparin Sodium 40 mg 09/21/17 09:00 09/21/17 08:56 Lovenox SQ 40 mg DAILY ELISABETH Administration Fluticasone Propionate 2 spray 09/21/17 09:00 09/21/17 09:01 Flonase Nasal Anchor EA NOSTRIL 2 spray DAILY ELISABETH Administration Furosemide 60 mg 09/20/17 21:00 09/21/17 08:56 Lasix IV 60 mg Q12H ELISABETH Administration Hydralazine HCl 50 mg 09/20/17 21:00 09/21/17 08:57 Apresoline PO 50 mg BID ELISABETH Administration Insulin Aspart 15 unit 09/21/17 07:30 09/21/17 07:06 Novolog SQ 15 unit AC-TID ELISABETH Administration Insulin Aspart 0 unit 09/20/17 21:00 09/21/17 07:06 Novolog SQ 6 unit ACHS ELISABETH Administration Protocol Insulin Detemir 50 unit 09/20/17 21:00 09/20/17 21:37 Levemir SQ 50 unit HS ELISABETH Administration Loratadine 10 mg 09/21/17 09:00 09/21/17 08:57 Claritin PO 10 mg DAILY ELISABETH Administration Melatonin 3 mg 09/20/17 20:02 Melatonin PO HS PRN Insomnia Metoprolol Tartrate 75 mg 09/20/17 21:00 09/21/17 08:57 Lopressor PO 75 mg BID ELISABETH Administration Naloxone HCl 0.2 mg 09/20/17 20:02 Narcan IV Q2M PRN Opioid Reversal Ondansetron HCl 4 mg 09/20/17 20:02 Zofran IVP Q8HR PRN Nausea And Vomiting Oxymetazoline HCl 1 spray 09/20/17 21:00 09/21/17 09:02 Afrin 0.05% Nasal Anchor NASAL 09/22/17 09:01 1 spray BID ELISABETH Administration Pantoprazole Sodium 40 mg 09/20/17 19:45 09/21/17 08:58 Protonix IVP 40 mg DAILY ELISABETH Administration Sodium Chloride 10 ml 09/20/17 21:00 09/21/17 09:01 Saline Flush IV 10 ml BID ELISABETH Administration Tramadol HCl 50 mg 09/20/17 20:02 Ultram PO Q6H PRN Moderate Pain Intake and Output 09/20/17 09/21/17 09/21/17 22:59 06:59 14:59 Intake Total 180 Output Total 600 1150 Balance -600 -1150 180 Intake: Oral 180 Output: Urine 600 1150 Other: Voiding Method Toilet Weight 117.934 kg 128.1 kg 09/21/17 05:08 09/21/17 05:08 EKG Interpretations (text) EKG shows normal sinus rhythm with nonspecific ST-T wave changes Assessment and Plan Plan: Assessment and plan #1 diastolic congestive heart failure acute on chronic, echocardiogram with Doppler study performed in January revealed an ejection fraction of 55-60%. Patient currently on IV Lasix. #2 anemia, normocytic, stool for occult blood positive. Hemoglobin 7.3 this morning. #3 acute on chronic kidney disease, stage III. #4 hypertension, uncontrolled #5 diabetes #6 sleep apnea #7 known history of coronary artery disease with prior RCA stenting in 2015 #8 diabetes #9 family history of premature coronary artery disease Plan Patient's shortness of breath could be secondary to both diastolic congestive heart failure as well as anemia. We will continue current dose of IV Lasix, monitoring renal function as well as intake and output and daily weights. Repeat echocardiogram with Doppler study will be requested. KEN inhibitor is currently on hold because of abnormal renal function. Further recommendations to follow. DNP note has been reviewed, I agree with a documented findings and plan of care. Patient was seen and examined.
[2017-09-21 11:54] LABS: Iron Saturation 11.67 (12.00-45.00)
--- NOTE | 2017-09-21 12:06 | ECHOF ---
Referral Reason:chf MEASUREMENTS -------- HEIGHT: 170.2 cm WEIGHT: 127.9 kg BP: 153/73 RVIDd: 3.3 cm (< 3.3) IVSd: 1.4 cm (0.6 - 1.1) LVIDd: 4.2 cm (3.9 - 5.3) LVPWd: 1.4 cm (0.6 - 1.1) IVSs: 1.8 cm LVIDs: 3.1 cm LVPWs: 1.3 cm LA Diam: 4.7 cm (2.7 - 3.8) LAESV Index (A-L): 30.39 ml/m Ao Diam: 3.3 cm (2.0 - 3.7) AV Cusp: 2.1 cm (1.5 - 2.6) LA Diam: 4.5 cm (2.7 - 3.8) MV EXCURSION: 23.080 mm (> 18.000) MV EF SLOPE: 118 mm/s (70 - 150) EPSS: 0.4 cm MV E Porfirio: 1.09 m/s MV DecT: 178 ms MV A Porfirio: 0.87 m/s MV E/A Ratio: 1.25 RAP: 5.00 mmHg RVSP: 41.00 mmHg FINDINGS -------- Sinus rhythm. Morbid Obesity This was a techncally difficult study with suboptimal views, , Definity utilized for enhancement of i mages. The left ventricular size is normal. Left ventricular wall thickness is normal. Overall left vent ricular systolic function is normal with, an EF between 55 - 60 %. The right ventricle is normal in size. LA is midly dilated 29-33ml/m2. The right atrial size is normal. 1.5MG OF DEFINITY UTLIZED: 2 OR MORE WALL SEGMENTS NOT VISUALIZED. There is mild aortic valve sclerosis. There is no evidence of aortic regurgitation. Mild mitral annular calcification present. Mild mitral regurgitation is present. Mild tricuspid regurgitation present. There is mild pulmonary hypertension. The right ventricular systolic pressure, as measured by Doppler, is 41.00mmHg. Trace/mild (physiologic) pulmonic regurgitation. The aortic root size is normal. There is no pericardial effusion. CONCLUSIONS -------- 1. Morbid Obesity 2. This was a techncally difficult study with suboptimal views, , Definity utilized for enhancement o f images. 3. The left ventricular size is normal. 4. Left ventricular wall thickness is normal. 5. Overall left ventricular systolic function is normal with, an EF between 55 - 60 %. 6. LA is midly dilated 29-33ml/m2. 7. 1.5MG OF DEFINITY UTLIZED: 2 OR MORE WALL SEGMENTS NOT VISUALIZED. 8. There is mild aortic valve sclerosis. 9. Mild mitral annular calcification present. 10. Mild mitral regurgitation is present. 11. Mild tricuspid regurgitation present. 12. There is mild pulmonary hypertension. 13. The right ventricular systolic pressure, as measured by Doppler, is 41.00mmHg. 14. Trace/mild (physiologic) pulmonic regurgitation. 15. The aortic root size is normal. 16. There is no pericardial effusion. PULMONARY NURSE PRACTITIONER: Ami Montoya RDCS
[2017-09-21 12:08] LABS: Glucose,Whole Blood 185 mg/dL (75-99)
--- NOTE | 2017-09-21 13:21 | P.PN ---
Subjective Progress Note Date: 09/21/17 Principal diagnosis: SOB Feeling a little better today. Objective - Vital Signs Vital signs: Vital Signs Temp 97.7 F 09/21/17 04:00 Pulse 74 09/21/17 04:00 Resp 18 09/21/17 04:00 BP 153/73 09/21/17 04:00 Pulse Ox 92 L 09/21/17 04:00 Intake & Output 09/20/17 09/21/17 09/21/17 18:59 06:59 18:59 Intake Total 180 Output Total 1750 Balance -1750 180 Weight 117.934 kg 128.1 kg 127.7 kg Intake: Oral 180 Output: Urine 1750 Other: Voiding Method Toilet - Exam General: non toxic, mild distress, appears at stated age, Obese Derm: no unusual rashes/lesions no unusual ecchymoses, warm, dryHead: atraumatic , normocephalic, symmetric Eyes: EOMI, no lid lag, anicteric sclera, pupils equal round reactive to light ENT: Nose and ears atraumatic, no thrush, + pharyngeal erythema, + Post nasal drip Neck: No thyromegaly, no cervical lymphadenopathy, trachea midline, supple Mouth: no lip lesion, mucus membranes moist Cardiovascular: S1S2 reg, no murmur, positive posterior tibial pulse bilateral, edema, capillary refill less than 2 seconds Lungs: decreased bs b/l bases , no accessory muscle use Abdominal: soft, nontender to palpation, no guarding, no appreciable organomegaly, normal bowel sounds Ext: no gross muscle atrophy, muscle strength 5 out of 5 in all 4 extremities grossly, no contractures, Neuro: CN II-XI grossly intact, light touch intact all 4 extremities, finger to nose within normal limits, Psych: Alert, oriented, appropriate affect - Labs CBC & Chem 7: 09/21/17 05:08 09/21/17 05:08 Labs: Abnormal Lab Results - Last 24 Hours (Table) 09/20/17 09/20/17 09/20/17 Range/Units 17:00 17:00 17:00 WBC 10.9 H (3.8-10.6) k/uL RBC 2.75 L (3.80-5.40) m/uL Hgb 8.0 L (11.4-16.0) gm/dL Hct 24.5 L (34.0-46.0) % Neutrophils # 9.1 H (1.3-7.7) k/uL Potassium 5.2 H (3.5-5.1) mmol/L Chloride 109 H (98-107) mmol/L BUN 53 H (7-17) mg/dL Creatinine 1.70 H (0.52-1.04) mg/dL Glucose 276 H (74-99) mg/dL POC Glucose (mg/dL) (75-99) mg/dL AST (14-36) U/L Total Creatine Kinase 157 H (30-135) U/L Total Protein 6.2 L (6.3-8.2) g/dL Albumin 3.4 L (3.5-5.0) g/dL HDL Cholesterol (40-60) mg/dL Stool Occult Blood (Negative) 09/20/17 09/20/17 09/20/17 Range/Units 19:00 20:13 21:17 WBC (3.8-10.6) k/uL RBC (3.80-5.40) m/uL Hgb (11.4-16.0) gm/dL Hct (34.0-46.0) % Neutrophils # (1.3-7.7) k/uL Potassium (3.5-5.1) mmol/L Chloride (98-107) mmol/L BUN (7-17) mg/dL Creatinine (0.52-1.04) mg/dL Glucose (74-99) mg/dL POC Glucose (mg/dL) 345 H 323 H (75-99) mg/dL AST (14-36) U/L Total Creatine Kinase (30-135) U/L Total Protein (6.3-8.2) g/dL Albumin (3.5-5.0) g/dL HDL Cholesterol (40-60) mg/dL Stool Occult Blood Positive H (Negative) 09/21/17 09/21/17 09/21/17 Range/Units 05:08 05:08 06:11 WBC (3.8-10.6) k/uL RBC 2.52 L (3.80-5.40) m/uL Hgb 7.3 L (11.4-16.0) gm/dL Hct 22.6 L (34.0-46.0) % Neutrophils # (1.3-7.7) k/uL Potassium (3.5-5.1) mmol/L Chloride 109 H (98-107) mmol/L BUN 54 H (7-17) mg/dL Creatinine 1.90 H (0.52-1.04) mg/dL Glucose 248 H (74-99) mg/dL POC Glucose (mg/dL) 262 H (75-99) mg/dL AST 12 L (14-36) U/L Total Creatine Kinase (30-135) U/L Total Protein 5.6 L (6.3-8.2) g/dL Albumin 3.0 L (3.5-5.0) g/dL HDL Cholesterol 30 L (40-60) mg/dL Stool Occult Blood (Negative) 09/21/17 Range/Units 11:49 WBC (3.8-10.6) k/uL RBC (3.80-5.40) m/uL Hgb (11.4-16.0) gm/dL Hct (34.0-46.0) % Neutrophils # (1.3-7.7) k/uL Potassium (3.5-5.1) mmol/L Chloride (98-107) mmol/L BUN (7-17) mg/dL Creatinine (0.52-1.04) mg/dL Glucose (74-99) mg/dL POC Glucose (mg/dL) 185 H (75-99) mg/dL AST (14-36) U/L Total Creatine Kinase (30-135) U/L Total Protein (6.3-8.2) g/dL Albumin (3.5-5.0) g/dL HDL Cholesterol (40-60) mg/dL Stool Occult Blood (Negative) Assessment and Plan Plan: #1 Acute exacerbation of diastolic congestive heart failure, last known ejection fraction 55-60% -Will decrease lasix dose to 40 mg every 12 hours -Follow strict I's and O's, daily weight -Holding KEN inhibitor with increased creatinine, continue beta mono -Repeat echocardiogram -Cardiology on board #2 Normocytic anemia -Known to patient and has been following with Dr. Myers -Is supposed to be getting an outpatient colonoscopy -Check B12, RBC folate, iron studies, and reticulocyte count---pending. -HgB lower today #3 Hyperkalemia Resolved. #4 Acute on chronic sinusitis -Seems to be allergic in nature. -Continue flonase and claritin, has recently completed a course of abx -Afrin X 4 doses -Consider singulair if no improvement with afrin. #5 ILANA on CKD 3 -Creatinine has been rapidly rising since last October from one now to 1.7-- suspect secondary to diabetic nephropathy versus cardiorenal syndrome -Dr. John on consult -Avoid additional nephrotoxic agents, hold KEN inhibitor -Follow creatinine closely with diuresis -Had renal Doppler which showed possible chronic kidney disease and left-sided renal artery stenosis--consider MRA renal arteries, would defer to Dr. John. #6 Hypertension, uncontrolled -Continue with Norvasc, metoprolol, hydralazine for now, hold KEN inhibitor with worsening creatinine #7 Diabetes mellitus type 2 uncontrolled -BS still uncontrolled -Increase lantus to 60 units daily. -Continue with short acting 3 times daily 15 units -SSI -Hemoglobin A1c recently checked 10 #8 Morbid obesity -[employer] Maker Hand re: weight loss #9 DVT prophylaxis: -Early mobilization -SCDs
--- NOTE | 2017-09-21 15:04 | CONS ---
CONSULTATION REASON FOR CONSULT: Renal failure. HISTORY OF PRESENT ILLNESS: Patient is a 62-year-old female who was admitted to the hospital on 09/20/2017, with complaints of shortness of breath. Patient was scheduled to see us as outpatient for worsening renal function as outpatient. Patient states that she does have a previous diagnosis of congestive heart failure. She denies use of any nonsteroidal anti- inflammatory agents. Patient denied any fever, chills, nausea, vomiting, or abdominal pain. No significant urinary symptoms. PAST MEDICAL HISTORY: Coronary artery disease, history of CHF most likely diastolic, ejection fraction was 50% to 55%, type 2 diabetes, hypertension, hyperlipidemia, coronary artery disease with history of GA. PAST SURGICAL HISTORY: Cardiac catheterization, coronary stent, carpal tunnel release, eye surgery. SOCIAL HISTORY: Negative for smoking, drug abuse or alcohol abuse. MEDICATIONS: At home prior to admission include Claritin, aspirin, Lipitor, insulin, Lopressor, Lasix, Norvasc, hydralazine, Zestril, ranitidine. ALLERGIES: Multiple including KEFLEX, CIPRO, CODEINE, LATEX, BACTRIM, ADHESIVE TAPE. REVIEW OF SYSTEMS: As per HPI. PHYSICAL EXAMINATION: Patient is comfortable, awake, alert, and oriented x3, not in any acute distress. Blood pressure is 153/73, heart rate 74 per minute, patient is afebrile. Examination of the heart, S1, S2. Examination of the lungs, bilateral breath sounds are heard. Abdomen is soft, nontender. Examination of the lower extremity shows chronic skin changes. Edema 2+ bilaterally, LIBRARY SERVICES ASSISTANT exam is grossly intact. Patient is moving all 4 extremities. LABS: Sodium 141, potassium 5.1, chloride 109, BUN 54, serum creatinine 1.9, hemoglobin 7.3 g/dL, TSH 1.5. UA is not available. Chest x-ray shows evidence of CHF with pleural effusion. ASSESSMENT: 1. Acute kidney injury secondary to congestive heart failure and exacerbated by anemia. I will check urinalysis as well. Patient did have a renal ultrasound which shows no evidence of hydronephrosis. Right kidney 15.7, left 14.9. No nephrotoxic medications on board. Blood pressure is not too low. We will continue with the IV Lasix for now. 2. Chronic kidney disease with previous creatinine at 1.2 and 1.3 mg/dL in January of 2017, possibly related to nephrosclerosis versus diabetic nephropathy, NKF stage III. 3. Hypertension. Blood pressure is slightly on the high side. Continue current medications. Will monitor for now. Expect improvement with diuresis. 4. Gastroesophageal reflux disease, maintained on Protonix. 5. Anemia with positive stool for occult blood. PLAN: Continue with IV Lasix. Check urinalysis and continue workup for anemia. Check iron studies, if not done. Patient will need further workup. MMODL / IJN: [id number] /
[2017-09-21 15:32] VITALS: BMI 44.1
[2017-09-21 16:24] LABS: Hemoglobin A1C 10.3 % (4.0-6.0)
[2017-09-21 17:09] LABS: Glucose,Whole Blood 134 mg/dL (75-99)
[2017-09-21] MEDS ORDERED: INSULIN DETEMIR 100 UNIT/ML 10 ML VIAL SQ SCH (21:00)
[2017-09-21] MEDS: FUROSEMIDE 10 MG/ML 4 ML VIAL IV SCH (21:07)
[2017-09-21] MEDS: ATORVASTATIN 80 MG TAB PO SCH (21:08)
[2017-09-21 21:10] LABS: Glucose,Whole Blood 123 mg/dL (75-99)
[2017-09-22 06:07] LABS: Glucose,Whole Blood 209 mg/dL (75-99)
[2017-09-22 06:34] LABS: HGB 7.5 gm/dL (11.4-16.0); MCH 28.4 pg (25.0-35.0); MCHC 31.4 g/dL (31.0-37.0); MCV 90.3 fL (80.0-100.0); Mean Platelet Volume 7.4; Platelet Count 289 k/uL (150-450); RBC 2.66 m/uL (3.80-5.40); RDW 13.7 % (11.5-15.5); WBC 9.1 k/uL (3.8-10.6)
[2017-09-22 06:48] LABS: Calcium 8.8 mg/dL (8.4-10.2); Magnesium 1.6 mg/dL (1.6-2.3); Potassium 5.3 mmol/L (3.5-5.1)
[2017-09-22] MEDS: INSULIN ASPART 100 UNIT/ML 1 ML 10 ML VIAL SQ SCH ×8 (07:29→21:44)
[2017-09-22] MEDS: FLUTICASONE 50MCG/SPRAY NASAL 16GM EA NOSTRIL SCH (07:50)
[2017-09-22] MEDS: METOPROLOL TARTRATE 25 MG TAB PO SCH ×2 (07:50→22:00)
[2017-09-22] MEDS: hydrALAZINE HCL 50 MG TAB PO SCH ×2 (07:50→22:00)
[2017-09-22] MEDS: ENOXAPARIN 40 MG/0.4 ML SYRINGE SQ SCH (07:50)
[2017-09-22] MEDS: FUROSEMIDE 10 MG/ML 4 ML VIAL IV SCH ×2 (07:50→22:01)
[2017-09-22] MEDS: PANTOPRAZOLE 40 MG TABLET PO SCH (07:51)
[2017-09-22] MEDS: LORATADINE 10 MG TAB PO SCH (07:51)
[2017-09-22] MEDS: OXYMETAZOLINE 0.05% NASL SPRAY 1 SPRAY BOTTLE NASAL SCH (07:51)
[2017-09-22] MEDS: amLODIPine 5 MG TAB PO SCH ×2 (07:51→22:00)
[2017-09-22 09:16] LABS: Appearance,Urine Clear (Clear); Bacteria,Urine Rare /hpf; Bilirubin,Urine Negative (Negative); Blood,Urine Negative (Negative); Color,Urine Light Yellow; Glucose,Urine (UA) 2+ (Negative); Hyaline Casts,Urine 6 /lpf (0-2); Ketones,Urine Negative (Negative); Leukocyte Esterase,Urine Moderate (Negative); Mucus,Urine Rare /hpf; Nitrite,Urine Negative (Negative); Protein,Urine 1+ (Negative); RBC,Urine 3 /hpf (0-5); Specific Gravity,Urine 1.008 (1.001-1.035); Squamous Epithelial Cell,Urine 1 /hpf (0-4); Urobilinogen,Urine <2.0 mg/dL (<2.0); WBC,Urine 11 /hpf (0-5)
--- NOTE | 2017-09-22 09:20 | P.PN ---
Subjective Patient is seen in follow-up for acute kidney injury on chronic kidney disease. Patient has chronic kidney disease stage III with baseline creatinine near 1- 1.2 from January 2017. Creatinine was 1.7 on admission and is 1.88 today. She presented with dyspnea and is noted to have diastolic CHF. She is currently maintained on IV Lasix 40 mg twice daily and has been voiding quite a bit. Oral intake is good. No vomiting or diarrhea. She denies any melena or hematochezia. Vital signs are stable. General: The patient appeared well nourished and normally developed. HEENT: Head exam is unremarkable. Neck is without jugular venous distension. LUNGS: Lungs are clear to auscultation and percussion. Breath sounds decreased. HEART: Rate and Rhythm are regular. First and second heart sounds normal. No murmurs, rubs or gallops. ABDOMEN: Abdominal exam reveals normal bowel sounds. Non-tender and non- distended. No evidence of peritonitis. EXTREMITITES: 1+ edema. Objective - Vital Signs Vital signs: Vital Signs Temp 98.4 F 09/22/17 07:47 Pulse 73 09/22/17 07:47 Resp 15 09/22/17 07:47 BP 144/77 09/22/17 07:47 Pulse Ox 92 L 09/22/17 07:47 Intake & Output 09/21/17 09/22/17 09/22/17 18:59 06:59 18:59 Intake Total 360 20 280 Output Total 1450 1700 Balance -1090 -1680 280 Weight 127.7 kg 127.7 kg Intake: IV 20 flush 20 Oral 360 280 Output: Urine 1450 1700 Other: Voiding Method Toilet Toilet # Voids 1 - Labs CBC & Chem 7: 09/22/17 05:27 09/22/17 05:27 Labs: Abnormal Lab Results - Last 24 Hours (Table) 09/21/17 09/21/17 09/21/17 Range/Units 05:08 05:08 11:49 RBC (3.80-5.40) m/uL Hgb (11.4-16.0) gm/dL Hct (34.0-46.0) % Potassium (3.5-5.1) mmol/L BUN (7-17) mg/dL Creatinine (0.52-1.04) mg/dL Glucose (74-99) mg/dL POC Glucose (mg/dL) 185 H (75-99) mg/dL Hemoglobin A1c 10.3 H (4.0-6.0) % Phosphorus (2.5-4.5) mg/dL Iron 30 L (50-170) ug/dL Iron Saturation 11.67 L (12.00-45.00) 09/21/17 09/21/17 09/22/17 Range/Units 17:08 21:08 05:27 RBC 2.66 L (3.80-5.40) m/uL Hgb 7.5 L (11.4-16.0) gm/dL Hct 24.0 L (34.0-46.0) % Potassium (3.5-5.1) mmol/L BUN (7-17) mg/dL Creatinine (0.52-1.04) mg/dL Glucose (74-99) mg/dL POC Glucose (mg/dL) 134 H 123 H (75-99) mg/dL Hemoglobin A1c (4.0-6.0) % Phosphorus (2.5-4.5) mg/dL Iron (50-170) ug/dL Iron Saturation (12.00-45.00) 09/22/17 09/22/17 Range/Units 05:27 06:05 RBC (3.80-5.40) m/uL Hgb (11.4-16.0) gm/dL Hct (34.0-46.0) % Potassium 5.3 H (3.5-5.1) mmol/L BUN 59 H (7-17) mg/dL Creatinine 1.88 H (0.52-1.04) mg/dL Glucose 197 H (74-99) mg/dL POC Glucose (mg/dL) 209 H (75-99) mg/dL Hemoglobin A1c (4.0-6.0) % Phosphorus 5.0 H (2.5-4.5) mg/dL Iron (50-170) ug/dL Iron Saturation (12.00-45.00) Assessment and Plan Plan: Assessment: #1. Nonoliguric acute kidney injury secondary to prerenal syndrome as well as anemia. Creatinine stable at 1.88 today. #2. Chronic kidney disease stage III secondary to diabetic kidney disease. Prior urinalysis did reveal proteinuria. Baseline creatinine the range of 1- 1.2. #3. Diastolic CHF. Decompensated. #4. Diabetes mellitus. Uncontrolled. Hemoglobin A1c 10.3. #5. Anemia with iron deficiency noted. Stool for occult blood noted to be positive as well. Plan: Continue Lasix 40 mg IV twice daily. Maintain low salt diet. Ferrlecit 125 mg IV daily for 3 days. First dose today. Avoid nephrotoxic agents and hypotensive episodes. Advised tighter blood sugar control. Check renal ultrasound. Upon discharge, she will need to follow-up as an outpatient for CKD care. Will also quantify proteinuria at that time.
--- NOTE | 2017-09-22 10:38 | US ---
EXAMINATION TYPE: US kidneys/renal and bladder DATE OF EXAM: 09/22/2017 COMPARISON: US 2017 CLINICAL HISTORY: ilana. ILANA, exam done portable, obese patient EXAM MEASUREMENTS: Right Kidney: 14.6 x 6.2 x 6.3 cm Left Kidney: 14.1 x 6.3 x 6.2 cm Right Kidney: wnl Left Kidney: 1.6cm linear echogenic focus mid pole Bladder: wnl Bilateral Jets seen: no Echogenic focus in the left kidney is likely vascular in nature. IMPRESSION: NO EVIDENCE OF ACUTE HYDRONEPHROSIS.
[2017-09-22] MEDS: SODIUM FERRIC GLUCONAT-SUCROSE 125 MG in SODIUM CHLORIDE 0.9% 100 ML IVPB SCH (11:20)
[2017-09-22 12:35] LABS: Glucose,Whole Blood 327 mg/dL (75-99)
--- NOTE | 2017-09-22 12:35 | PN ---
PROGRESS NOTE Mrs. Beach is a 62-year-old female, known history of coronary disease, history of chronic kidney disease, who presented with symptoms progressive dyspnea and worsening peripheral edema. She is feeling slightly better today. She has no chest pain. She continues to be dyspneic. She is receiving iron infusion. Her echocardiogram revealed a preserved left ventricular size systolic function with mild mitral and tricuspid regurgitation. She continues to be at this time on amlodipine 5 mg twice a day, Lipitor 80 mg daily, Lovenox subcutaneously, Lasix 40 mg IV q.12 hours, metoprolol tartrate 75 mg twice a day. PHYSICAL EXAMINATION: Blood pressure 140/59 with a heart rate in 60s. LUNGS: Clear. HEART: Regular rhythm S1, S2. No S3 with systolic murmur. No diastolic murmur. ABDOMEN: Soft, obese, nontender. Extremities: +1 to 2 edema bilaterally. LAB DATA: BUN and creatinine 59, and 1.88, hemoglobin of 7.5. IMPRESSION: 1. Congestive heart failure with diastolic dysfunction and underlying renal function abnormality with worsening anemia. 2. History of chronic kidney disease. 3. History of coronary artery disease. 4. History of hypertension. 5. Hyperlipidemia. RECOMMENDATION: From the cardiac standpoint, we will continue present therapy. Follow her renal function closely. We will continue holding her KEN inhibitor. Depending on her blood pressure, is the dose of her hydralazine can be adjusted and I will add to her regimen nitrate. MMODL / IJN: [id number] /
[2017-09-22] MEDS: ISOSORBIDE MONONITRATE ER 30 MG TAB.ER.24H PO SCH (14:27)
--- NOTE | 2017-09-22 15:40 | P.PN ---
Subjective Progress Note Date: 09/22/17 Principal diagnosis: SOB Continues to feel better today. Objective - Vital Signs Vital signs: Vital Signs Temp 98.0 F 09/22/17 11:34 Pulse 69 09/22/17 11:34 Resp 17 09/22/17 11:34 BP 146/59 09/22/17 11:34 Pulse Ox 93 L 09/22/17 11:34 Intake & Output 09/21/17 09/22/17 09/22/17 18:59 06:59 18:59 Intake Total 360 20 280 Output Total 1450 1700 1000 Balance -1090 -1680 -720 Weight 127.7 kg 127.7 kg Intake: IV 20 flush 20 Oral 360 280 Output: Urine 1450 1700 1000 Other: Voiding Method Toilet Toilet Toilet # Voids 1 - Exam General: non toxic, mild distress, appears at stated age, Obese Derm: no unusual rashes/lesions no unusual ecchymoses, warm, dryHead: atraumatic , normocephalic, symmetric Eyes: EOMI, no lid lag, anicteric sclera, pupils equal round reactive to light ENT: Nose and ears atraumatic, no thrush, + pharyngeal erythema, + Post nasal drip Neck: No thyromegaly, no cervical lymphadenopathy, trachea midline, supple Mouth: no lip lesion, mucus membranes moist Cardiovascular: S1S2 reg, no murmur, positive posterior tibial pulse bilateral, edema, capillary refill less than 2 seconds Lungs: decreased bs b/l bases , no accessory muscle use Abdominal: soft, nontender to palpation, no guarding, no appreciable organomegaly, normal bowel sounds Ext: no gross muscle atrophy, muscle strength 5 out of 5 in all 4 extremities grossly, no contractures, Neuro: CN II-XI grossly intact, light touch intact all 4 extremities, finger to nose within normal limits, Psych: Alert, oriented, appropriate affect - Labs CBC & Chem 7: 09/22/17 05:27 09/22/17 05:27 Labs: Abnormal Lab Results - Last 24 Hours (Table) 09/21/17 09/21/17 09/21/17 Range/Units 05:08 05:08 17:08 RBC (3.80-5.40) m/uL Hgb (11.4-16.0) gm/dL Hct (34.0-46.0) % Potassium (3.5-5.1) mmol/L BUN (7-17) mg/dL Creatinine (0.52-1.04) mg/dL Glucose (74-99) mg/dL POC Glucose (mg/dL) 134 H (75-99) mg/dL Hemoglobin A1c 10.3 H (4.0-6.0) % Phosphorus (2.5-4.5) mg/dL Iron 30 L (50-170) ug/dL Iron Saturation 11.67 L (12.00-45.00) Urine Protein (Negative) Urine Glucose (UA) (Negative) Ur Leukocyte Esterase (Negative) Urine WBC (0-5) /hpf Urine Bacteria (None) /hpf Hyaline Casts (0-2) /lpf Urine Mucus (None) /hpf 09/21/17 09/22/17 09/22/17 Range/Units 21:08 05:27 05:27 RBC 2.66 L (3.80-5.40) m/uL Hgb 7.5 L (11.4-16.0) gm/dL Hct 24.0 L (34.0-46.0) % Potassium 5.3 H (3.5-5.1) mmol/L BUN 59 H (7-17) mg/dL Creatinine 1.88 H (0.52-1.04) mg/dL Glucose 197 H (74-99) mg/dL POC Glucose (mg/dL) 123 H (75-99) mg/dL Hemoglobin A1c (4.0-6.0) % Phosphorus 5.0 H (2.5-4.5) mg/dL Iron (50-170) ug/dL Iron Saturation (12.00-45.00) Urine Protein (Negative) Urine Glucose (UA) (Negative) Ur Leukocyte Esterase (Negative) Urine WBC (0-5) /hpf Urine Bacteria (None) /hpf Hyaline Casts (0-2) /lpf Urine Mucus (None) /hpf 09/22/17 09/22/17 09/22/17 Range/Units 06:05 08:55 12:01 RBC (3.80-5.40) m/uL Hgb (11.4-16.0) gm/dL Hct (34.0-46.0) % Potassium (3.5-5.1) mmol/L BUN (7-17) mg/dL Creatinine (0.52-1.04) mg/dL Glucose (74-99) mg/dL POC Glucose (mg/dL) 209 H 327 H (75-99) mg/dL Hemoglobin A1c (4.0-6.0) % Phosphorus (2.5-4.5) mg/dL Iron (50-170) ug/dL Iron Saturation (12.00-45.00) Urine Protein 1+ H (Negative) Urine Glucose (UA) 2+ H (Negative) Ur Leukocyte Esterase Moderate H (Negative) Urine WBC 11 H (0-5) /hpf Urine Bacteria Rare H (None) /hpf Hyaline Casts 6 H (0-2) /lpf Urine Mucus Rare H (None) /hpf Assessment and Plan Plan: #1 Acute exacerbation of diastolic congestive heart failure, last known ejection fraction 55-60% -Continue lasix dose to 40 mg every 12 hours -Increasing well, -1600 mL over the last 24 hours -Holding KEN inhibitor with increased creatinine, continue beta mono -Repeat echocardiogram showed normal ejection fraction. -Cardiology on board #2 Normocytic anemia -Known to patient and has been following with Dr. Myers -Is supposed to be getting an outpatient colonoscopy -B12, RBC folate pending -Iron studies consistent with mild iron deficiency -HgB stable #3 Hyperkalemia Monitor daily k. #4 Acute on chronic sinusitis -Seems to be allergic in nature. -Continue flonase and claritin, has recently completed a course of abx -S/P Afrin X 4 doses -Consider singulair if no improvement #5 ILANA on CKD 3 -Creatinine has been rapidly rising since last October from one now to 1.7-- suspect secondary to diabetic nephropathy versus cardiorenal syndrome -Dr. John on consult -Avoid additional nephrotoxic agents, hold KEN inhibitor -Follow creatinine closely with diuresis -Had renal Doppler which showed possible chronic kidney disease and left-sided renal artery stenosis--consider MRA renal arteries, would defer to nephro. -Need to followup with nephro outpatient -Renal U/S reviewed. #6 Hypertension -Better -Continue with Norvasc, metoprolol, hydralazine for now, hold KEN inhibitor with worsening creatinine #7 Diabetes mellitus type 2 uncontrolled -BS still uncontrolled -Increase lantus to 65 units daily. -Increase short acting 3 times daily to 25 units -SSI -Hemoglobin A1c recently checked 10 #8 Morbid obesity -Bariatric Program Coordinator re: weight loss #9 DVT prophylaxis: -Early mobilization -SCDs
[2017-09-22 17:02] LABS: Glucose,Whole Blood 161 mg/dL (75-99)
[2017-09-22 18:40] LABS: Glucose,Whole Blood 182 mg/dL (75-99)
[2017-09-22 21:37] LABS: Glucose,Whole Blood 120 mg/dL (75-99)
[2017-09-22] MEDS: ATORVASTATIN 80 MG TAB PO SCH (22:00)
[2017-09-22] MEDS: INSULIN DETEMIR 100 UNIT/ML 10 ML VIAL SQ SCH (22:01)
[2017-09-23 06:33] LABS: Glucose,Whole Blood 192 mg/dL (75-99)
[2017-09-23 06:39] LABS: Magnesium 1.8 mg/dL (1.6-2.3); Potassium 5.3 mmol/L (3.5-5.1)
[2017-09-23] MEDS: INSULIN ASPART 100 UNIT/ML 1 ML 10 ML VIAL SQ SCH ×7 (07:03→21:38)
[2017-09-23] MEDS: FLUTICASONE 50MCG/SPRAY NASAL 16GM EA NOSTRIL SCH (08:06)
[2017-09-23] MEDS: ENOXAPARIN 40 MG/0.4 ML SYRINGE SQ SCH (08:06)
[2017-09-23] MEDS: FUROSEMIDE 10 MG/ML 4 ML VIAL IV SCH (08:06)
[2017-09-23] MEDS: hydrALAZINE HCL 50 MG TAB PO SCH ×3 (08:07→20:42)
[2017-09-23] MEDS: LORATADINE 10 MG TAB PO SCH (08:07)
[2017-09-23] MEDS: PANTOPRAZOLE 40 MG TABLET PO SCH (08:07)
[2017-09-23] MEDS: amLODIPine 5 MG TAB PO SCH ×2 (08:07→20:41)
[2017-09-23] MEDS: METOPROLOL TARTRATE 25 MG TAB PO SCH ×2 (08:07→20:41)
[2017-09-23] MEDS: ISOSORBIDE MONONITRATE ER 30 MG TAB.ER.24H PO SCH (08:07)
--- NOTE | 2017-09-23 09:07 | P.PN ---
Subjective Patient is seen in follow-up for acute kidney injury on chronic kidney disease. Patient has chronic kidney disease stage III with baseline creatinine near 1- 1.2 from January 2017. Creatinine was 1.7 on admission and peaked at 1.88 yesterday - down to 1.7 today. She presented with dyspnea and is noted to have diastolic CHF. She is currently maintained on IV Lasix 40 mg twice daily and has been voiding quite a bit. Oral intake is good. No vomiting or diarrhea. She denies any melena or hematochezia. Edema is improving. Vital signs are stable. General: The patient appeared well nourished and normally developed. HEENT: Head exam is unremarkable. Neck is without jugular venous distension. LUNGS: Lungs are clear to auscultation and percussion. Breath sounds decreased. HEART: Rate and Rhythm are regular. First and second heart sounds normal. No murmurs, rubs or gallops. ABDOMEN: Abdominal exam reveals normal bowel sounds. Non-tender and non- distended. No evidence of peritonitis. EXTREMITITES: 1+ edema. Objective - Vital Signs Vital signs: Vital Signs Temp 97.8 F 09/23/17 08:05 Pulse 75 09/23/17 08:05 Resp 17 09/23/17 08:05 BP 143/66 09/23/17 08:05 Pulse Ox 93 L 09/23/17 08:05 Intake & Output 09/22/17 09/23/17 09/23/17 18:59 06:59 18:59 Intake Total 280 Output Total 2000 1600 600 Balance -1720 -1600 -600 Weight 127.6 kg Intake: Oral 280 Output: Urine 1999 1600 600 Other: Voiding Method Toilet Toilet Toilet # Voids 2 - Labs CBC & Chem 7: 09/22/17 05:27 09/23/17 05:54 Labs: Abnormal Lab Results - Last 24 Hours (Table) 09/22/17 09/22/17 09/22/17 Range/Units 08:55 12:01 16:57 Potassium (3.5-5.1) mmol/L Chloride (98-107) mmol/L BUN (7-17) mg/dL Creatinine (0.52-1.04) mg/dL Glucose (74-99) mg/dL POC Glucose (mg/dL) 327 H 161 H (75-99) mg/dL Urine Protein 1+ H (Negative) Urine Glucose (UA) 2+ H (Negative) Ur Leukocyte Esterase Moderate H (Negative) Urine WBC 11 H (0-5) /hpf Urine Bacteria Rare H (None) /hpf Hyaline Casts 6 H (0-2) /lpf Urine Mucus Rare H (None) /hpf 09/22/17 09/22/17 09/23/17 Range/Units 18:38 21:35 05:54 Potassium 5.3 H (3.5-5.1) mmol/L Chloride 109 H (98-107) mmol/L BUN 59 H (7-17) mg/dL Creatinine 1.70 H (0.52-1.04) mg/dL Glucose 168 H (74-99) mg/dL POC Glucose (mg/dL) 182 H 120 H (75-99) mg/dL Urine Protein (Negative) Urine Glucose (UA) (Negative) Ur Leukocyte Esterase (Negative) Urine WBC (0-5) /hpf Urine Bacteria (None) /hpf Hyaline Casts (0-2) /lpf Urine Mucus (None) /hpf 09/23/17 Range/Units 06:21 Potassium (3.5-5.1) mmol/L Chloride (98-107) mmol/L BUN (7-17) mg/dL Creatinine (0.52-1.04) mg/dL Glucose (74-99) mg/dL POC Glucose (mg/dL) 192 H (75-99) mg/dL Urine Protein (Negative) Urine Glucose (UA) (Negative) Ur Leukocyte Esterase (Negative) Urine WBC (0-5) /hpf Urine Bacteria (None) /hpf Hyaline Casts (0-2) /lpf Urine Mucus (None) /hpf Assessment and Plan Plan: Assessment: #1. Nonoliguric acute kidney injury secondary to ATN due to cardiorenal syndrome. #2. Chronic kidney disease stage III secondary to diabetic kidney disease and cardiorenal syndrome. Baseline creatinine in the range of 1-1.2. #3. Acute diastolic CHF. #4. Diabetes mellitus. Uncontrolled. Hemoglobin A1c 10.3. #5. Anemia with iron deficiency noted. Stool for occult blood noted to be positive as well. #6. Hypertension with chronic kidney disease. Currently controlled. Patient did have a renal duplex ultrasound done in July 2017 which was unable to exclude left-sided renal artery stenosis. Both kidneys are normal and similar in size so I doubt that there is any significant renal artery stenosis. Continue with current antihypertensives to control blood pressure. Plan: Continue Lasix 40 mg IV twice daily - can likely be transitioned over to oral tomorrow. Maintain low salt diet. I will also put her on 1500 mL fluid restriction. Ferrlecit 125 mg IV daily for 3 days. Second dose today. Avoid nephrotoxic agents and hypotensive episodes. Advised tighter blood sugar control. Upon discharge, she will need to follow-up as an outpatient for CKD care. Will also quantify proteinuria at that time and do secondary workup for hypertension as well. No adrenal mass noted on renal ultrasound. Will also consider MRA of renal arteries depending on how her blood pressure is controlled. Stenting of the renal arteries has only shown to be beneficial if blood pressure remains uncontrolled despite compliance with antihypertensives or if patient is having worsening renal failure or symptoms due to uncontrolled blood pressure such as recurrent pulmonary edema.
[2017-09-23] MEDS: SODIUM FERRIC GLUCONAT-SUCROSE 125 MG in SODIUM CHLORIDE 0.9% 100 ML IVPB SCH (10:30)
[2017-09-23 11:49] LABS: Glucose,Whole Blood 85 mg/dL (75-99)
--- NOTE | 2017-09-23 13:30 | PN ---
PROGRESS NOTE Mrs. Beach is 62-year-old female with a history of coronary artery disease, history of chronic kidney disease, who presented with progressive symptoms of dyspnea. She is feeling slightly better today. She continues to have peripheral edema, although better. She denies any chest pain. She denies any palpitation. She continues to be on the IV iron infusion, amlodipine 5 mg twice a day, Lipitor 80 mg daily, Lasix 40 mg IV q.12 hours, isosorbide mononitrate 30 mg daily, metoprolol tartrate 75 mg twice a day. PHYSICAL EXAMINATION: Blood pressure 140/60 with a heart rate in the 60s. LUNGS: No wheezes. HEART: Regular rate and rhythm. S1, S2. No S3 with no rub. ABDOMEN: Soft, obese, nontender. EXTREMITIES: +1 edema, improved compared with yesterday. LAB DATA: Lab data revealed a BUN and creatinine of 59 and 1.7 with some improvement compared with yesterday. IMPRESSION: 1. Congestive heart failure with preserved left ventricular systolic function. 2. History of coronary disease. 3. Chronic kidney disease. 4. History of hypertension. 5. Hyperlipidemia. RECOMMENDATION: We will continue current therapy. Depending on her blood pressure, the dose of her hydralazine can be further adjusted. In the meantime, I will increase it to 50 mg 3 times a day. Continue to follow her renal function closely. She will continue IV diuretics for another 24 hours and depending on her progress, further recommendation will be made. MMODL / IJN: [id number] /
--- NOTE | 2017-09-23 15:26 | P.PN ---
Subjective Principal diagnosis: SOB Patient is finally starting to feel better. She has significant amount of itching in both of her legs where the chronic skin changes are and that itching deprived her from sleep last night. Objective - Vital Signs Vital signs: Vital Signs Temp 98.0 F 09/23/17 11:26 Pulse 68 09/23/17 11:26 Resp 16 09/23/17 11:26 BP 154/67 09/23/17 11:26 Pulse Ox 95 09/23/17 11:26 Intake & Output 09/22/17 09/23/17 09/23/17 18:59 06:59 18:59 Intake Total 280 Output Total 1999 1600 600 Balance -1720 -1600 -600 Weight 127.6 kg Intake: Oral 280 Output: Urine 1999 1600 600 Other: Voiding Method Toilet Toilet Toilet # Voids 2 - Exam General: non toxic, mild distress, appears at stated age, Obese Derm: no unusual rashes/lesions no unusual ecchymoses, warm, dryHead: atraumatic , normocephalic, symmetric Eyes: EOMI, no lid lag, anicteric sclera, pupils equal round reactive to light ENT: Nose and ears atraumatic, no thrush, + pharyngeal erythema, + Post nasal drip Neck: No thyromegaly, no cervical lymphadenopathy, trachea midline, supple Mouth: no lip lesion, mucus membranes moist Cardiovascular: S1S2 reg, no murmur, positive posterior tibial pulse bilateral, edema, capillary refill less than 2 seconds Lungs: decreased bs b/l bases , no accessory muscle use Abdominal: soft, nontender to palpation, no guarding, no appreciable organomegaly, normal bowel sounds Ext: no gross muscle atrophy, muscle strength 5 out of 5 in all 4 extremities grossly, no contractures, Neuro: CN II-XI grossly intact, light touch intact all 4 extremities, finger to nose within normal limits, Psych: Alert, oriented, appropriate affect - Labs CBC & Chem 7: 09/22/17 05:27 09/23/17 05:54 Labs: Abnormal Lab Results - Last 24 Hours (Table) 09/22/17 09/22/17 09/22/17 Range/Units 16:57 18:38 21:35 Potassium (3.5-5.1) mmol/L Chloride (98-107) mmol/L BUN (7-17) mg/dL Creatinine (0.52-1.04) mg/dL Glucose (74-99) mg/dL POC Glucose (mg/dL) 161 H 182 H 120 H (75-99) mg/dL 09/23/17 09/23/17 Range/Units 05:54 06:21 Potassium 5.3 H (3.5-5.1) mmol/L Chloride 109 H (98-107) mmol/L BUN 59 H (7-17) mg/dL Creatinine 1.70 H (0.52-1.04) mg/dL Glucose 168 H (74-99) mg/dL POC Glucose (mg/dL) 192 H (75-99) mg/dL Assessment and Plan Plan: #1 Acute exacerbation of diastolic congestive heart failure, last known ejection fraction 55-60% -Continue lasix dose to 40 mg every 12 hours--switch to p.o -Holding KEN inhibitor with increased creatinine, continue beta mono -Repeat echocardiogram showed normal ejection fraction. -Cardiology on board #2 Normocytic anemia -Known to patient and has been following with Dr. Myers -Is supposed to be getting an outpatient colonoscopy -B12 WNL -RBC folate pending -Iron deficient--on iron replacement IV -Consult GI for colonoscopy. #3 Hyperkalemia Monitor daily k. #4 Acute on chronic sinusitis -Seems to be allergic in nature. -Continue flonase and claritin, has recently completed a course of abx -S/P Afrin X 4 doses -Consider singulair if no improvement #5 ILANA on CKD 3 -Creatinine has been rapidly rising since last October from one now to 1.7-- suspect secondary to diabetic nephropathy versus cardiorenal syndrome -Dr. John on consult -Avoid additional nephrotoxic agents, hold KEN inhibitor -Follow creatinine closely with diuresis -Had renal Doppler which showed possible chronic kidney disease and left-sided renal artery stenosis--consider MRA renal arteries, would defer to nephro. -Need to followup with nephro outpatient -Renal U/S reviewed. #6 Hypertension -Better -Continue with Norvasc, metoprolol, hydralazine for now, hold KEN inhibitor with worsening creatinine #7 Diabetes mellitus type 2 uncontrolled -BS now controlled -Continue lantus to 65 units daily. -Continue short acting 3 times daily to 25 units -SSI -Hemoglobin A1c recently checked 10 #8 Morbid obesity -Counseled re weight loss #9 Deconditioning: Start PT and OT #10 DVT prophylaxis: Lovenox s.q
[2017-09-23 17:02] LABS: Glucose,Whole Blood 119 mg/dL (75-99)
[2017-09-23] MEDS: FUROSEMIDE 40 MG TAB PO SCH (17:13)
[2017-09-23] MEDS: ATORVASTATIN 80 MG TAB PO SCH (20:41)
[2017-09-23] MEDS: diphenhydrAMINE 2% CREAM 28.4 GM TUBE TOPICAL SCH (20:41)
[2017-09-23 21:01] LABS: Glucose,Whole Blood 189 mg/dL (75-99)
[2017-09-23] MEDS: INSULIN DETEMIR 100 UNIT/ML 10 ML VIAL SQ SCH (21:37)
[2017-09-24 06:19] LABS: Glucose,Whole Blood 215 mg/dL (75-99)
[2017-09-24 07:06] LABS: Calcium 9.1 mg/dL (8.4-10.2); Magnesium 1.8 mg/dL (1.6-2.3); Potassium 5.4 mmol/L (3.5-5.1)
[2017-09-24] MEDS: INSULIN ASPART 100 UNIT/ML 1 ML 10 ML VIAL SQ SCH ×7 (07:16→21:01)
[2017-09-24] MEDS: amLODIPine 5 MG TAB PO SCH ×2 (07:17→20:46)
[2017-09-24] MEDS: ENOXAPARIN 40 MG/0.4 ML SYRINGE SQ SCH (07:17)
[2017-09-24] MEDS: ISOSORBIDE MONONITRATE ER 30 MG TAB.ER.24H PO SCH (07:18)
[2017-09-24] MEDS: hydrALAZINE HCL 50 MG TAB PO SCH ×4 (07:18→22:58)
[2017-09-24] MEDS: FUROSEMIDE 40 MG TAB PO SCH ×2 (07:18→17:32)
[2017-09-24] MEDS: METOPROLOL TARTRATE 25 MG TAB PO SCH ×2 (07:19→20:47)
[2017-09-24] MEDS: PANTOPRAZOLE 40 MG TABLET PO SCH (07:19)
[2017-09-24] MEDS: LORATADINE 10 MG TAB PO SCH (07:19)
--- NOTE | 2017-09-24 07:43 | P.CONS ---
History of Present Illness - Reason for Consult Consult date: 09/21/17 Anemia - History of Present Illness The patient is a 62-year-old female who presented with the complaint of shortness of breath. The patient was diagnosed with acute exacerbation of diastolic congestive heart failure and is managed accordingly. We are asked to see her regarding anemia. This was noted on the outpatient basis and she was recommended to have a colonoscopy but was not able to do with because of transportation issues. The patient has Hemoccult-negative stools but would be interested to have heart evaluation done while she is in the hospital. She denies any new GI complaints. Review of Systems 12 point review of systems is otherwise not revealing. Past Medical History Past Medical History: Coronary Artery Disease (CAD), Heart Failure, Diabetes Mellitus, Hyperlipidemia, Hypertension, Myocardial Infarction ([place]) Additional Past Medical History / Comment(s): edema, seasonal allergies, Diabetic ulcer-SEES DR ZELAYA FOR WOUND CARE, anemia, neuropathy, CKD Last Myocardial Infarction Date:: 01/10/15 History of Any Multi-Drug Resistant Organisms: None Reported Past Surgical History: Heart Catheterization With Stent Additional Past Surgical History / Comment(s): PT HAD STENT TO DISTAL RCA IN DECEMBER 2014, carpal tunnel bilateral hands, Eye surgery to cauterize bleeding November, Past Anesthesia/Blood Transfusion Reactions: Family History of Problems w/ Anesthesia, Motion Sickness Additional Past Anesthesia/Blood Transfusion Reaction / Comm: states mother had difficulty coming out of anesthesia Date of Last Stent Placement:: 12/30 Past Psychological History: Anxiety Additional Psychological History / Comment(s): Pt states she lives in her home with her adult neice and nephew. She is independent. She uses no assistive device. She drives. Smoking Status: Never smoker Past Alcohol Use History: None Reported Past Drug Use History: None Reported - Past Family History Sister(s) Family Medical History: Diabetes Mellitus, Hypertension, Myocardial Infarction ( [place]), Vascular Disorder Additional Family Medical History / Comment(s): post procedure of five stents Mother Family Medical History: CVA/TIA, Diabetes Mellitus, Myocardial Infarction ([place]) Additional Family Medical History / Comment(s): TIA's, PVD. Mother at age 65yrs. Father Family Medical History: Dementia, Diabetes Mellitus, Hypertension Additional Family Medical History / Comment(s): Father at age 72 yrs. Medications and Allergies Home Medications Medication Instructions Recorded Confirmed Type Loratadine [Claritin] 10 mg PO DAILY 01/05/15 09/20/17 History Aspirin 81 mg PO DAILY 04/16/15 09/20/17 History Atorvastatin [Lipitor] 80 mg PO HS 10/14/15 09/20/17 History Insulin Glulisine [Apidra] 15 unit SQ TID 11/05/15 09/20/17 History Insulin Glargine [Lantus] 50 unit SQ HS 01/22/17 09/20/17 History Metoprolol Tartrate [Lopressor] 75 mg PO BID #60 tablet 01/24/17 09/20/17 Rx Furosemide [Lasix] 40 mg PO BID 08/15/17 09/20/17 History amLODIPine [Norvasc] 5 mg PO BID 08/15/17 09/20/17 History hydrALAZINE HCL [Apresoline] 50 mg PO BID 08/15/17 09/20/17 History Fluticasone Propionate [Flonase 2 spray EA NOSTRIL DAILY 09/20/17 09/20/17 History Allergy Relief] Lisinopril [Zestril] 20 mg PO BID 09/20/17 09/20/17 History Ranitidine HCl 150 mg PO BID 09/20/17 09/20/17 History Allergies Allergy/AdvReac Type Severity Reaction Status Date / Time cephalexin monohydrate Allergy Rash/Hives Verified 09/20/17 16:44 [From Keflex] ciprofloxacin [From Cipro] Allergy Swelling Verified 09/20/17 16:44 ciprofloxacin HCl Allergy Swelling Verified 09/20/17 16:44 [From Cipro] codeine Allergy Unknown Verified 09/20/17 16:44 latex Allergy Itching Verified 09/20/17 16:44 sulfamethoxazole Allergy Itching Verified 09/20/17 16:44 [From Bactrim] trimethoprim [From Bactrim] Allergy Itching Verified 09/20/17 16:44 adhesive tape AdvReac Itching Verified 09/20/17 16:44 Physical Exam Vitals: Vital Signs Temp Pulse Pulse Resp BP BP Pulse Ox 09/21/17 16:00 79 20 09/21/17 12:00 98.1 F 79 20 142/67 94 L 09/21/17 08:00 98.6 F 79 20 126/60 94 L 09/21/17 04:00 97.7 F 74 18 153/73 92 L 09/21/17 00:10 91 20 186/75 93 L 09/21/17 00:00 97.1 F L 91 18 142/68 94 L 09/20/17 20:36 98.6 F 89 20 176/72 100 09/20/17 19:00 97.7 F 90 20 187/85 96 09/20/17 18:55 86 20 155/60 99 09/20/17 17:47 78 18 165/55 97 Intake and Output 09/21/17 09/21/17 09/21/17 06:59 14:59 22:59 Intake Total 180 180 Output Total 1150 650 Balance -1150 -470 180 Intake: Oral 180 180 Output: Urine 1150 650 Other: Voiding Method Toilet Toilet Toilet Weight 128.1 kg 127.7 kg 127.7 kg Patient Weight 09/22/17 06:59 Weight 127.7 kg General: Appeared stated age, very pleasant, in no acute distress Head and neck: Normocephalic and atraumatic. Conjunctivae pink and sclerae not icteric. Mucous membranes moist and pink. No masses in the neck or tracheal shifts Lungs: Clear to auscultation with no dullness to percussion Heart: Regular, no abnormal sounds, murmurs, gallops or friction rubs Abdomen: Soft, no masses, organomegalies or tenderness, bowel sounds present Extremities: No clubbing, cyanosis or edema Neurologic: Alert and oriented 3. Cranial nerves grossly intact. No gross sensory or motor abnormalities Results CBC & Chem 7: 09/22/17 05:27 09/24/17 06:14 Labs: Abnormal Lab Results - Last 24 Hours (Table) 09/20/17 09/20/17 09/20/17 Range/Units 17:00 17:00 17:00 WBC 10.9 H (3.8-10.6) k/uL RBC 2.75 L (3.80-5.40) m/uL Hgb 8.0 L (11.4-16.0) gm/dL Hct 24.5 L (34.0-46.0) % Neutrophils # 9.1 H (1.3-7.7) k/uL Potassium 5.2 H (3.5-5.1) mmol/L Chloride 109 H (98-107) mmol/L BUN 53 H (7-17) mg/dL Creatinine 1.70 H (0.52-1.04) mg/dL Glucose 276 H (74-99) mg/dL POC Glucose (mg/dL) (75-99) mg/dL Iron (50-170) ug/dL Iron Saturation (12.00-45.00) AST (14-36) U/L Total Creatine Kinase 157 H (30-135) U/L Total Protein 6.2 L (6.3-8.2) g/dL Albumin 3.4 L (3.5-5.0) g/dL HDL Cholesterol (40-60) mg/dL Stool Occult Blood (Negative) 09/20/17 09/20/17 09/20/17 Range/Units 19:00 20:13 21:17 WBC (3.8-10.6) k/uL RBC (3.80-5.40) m/uL Hgb (11.4-16.0) gm/dL Hct (34.0-46.0) % Neutrophils # (1.3-7.7) k/uL Potassium (3.5-5.1) mmol/L Chloride (98-107) mmol/L BUN (7-17) mg/dL Creatinine (0.52-1.04) mg/dL Glucose (74-99) mg/dL POC Glucose (mg/dL) 345 H 323 H (75-99) mg/dL Iron (50-170) ug/dL Iron Saturation (12.00-45.00) AST (14-36) U/L Total Creatine Kinase (30-135) U/L Total Protein (6.3-8.2) g/dL Albumin (3.5-5.0) g/dL HDL Cholesterol (40-60) mg/dL Stool Occult Blood Positive H (Negative) 09/21/17 09/21/17 09/21/17 Range/Units 05:08 05:08 05:08 WBC (3.8-10.6) k/uL RBC 2.52 L (3.80-5.40) m/uL Hgb 7.3 L (11.4-16.0) gm/dL Hct 22.6 L (34.0-46.0) % Neutrophils # (1.3-7.7) k/uL Potassium (3.5-5.1) mmol/L Chloride 109 H (98-107) mmol/L BUN 54 H (7-17) mg/dL Creatinine 1.90 H (0.52-1.04) mg/dL Glucose 248 H (74-99) mg/dL POC Glucose (mg/dL) (75-99) mg/dL Iron 30 L (50-170) ug/dL Iron Saturation 11.67 L (12.00-45.00) AST 12 L (14-36) U/L Total Creatine Kinase (30-135) U/L Total Protein 5.6 L (6.3-8.2) g/dL Albumin 3.0 L (3.5-5.0) g/dL HDL Cholesterol 30 L (40-60) mg/dL Stool Occult Blood (Negative) 09/21/17 09/21/17 09/21/17 Range/Units 06:11 11:49 17:08 WBC (3.8-10.6) k/uL RBC (3.80-5.40) m/uL Hgb (11.4-16.0) gm/dL Hct (34.0-46.0) % Neutrophils # (1.3-7.7) k/uL Potassium (3.5-5.1) mmol/L Chloride (98-107) mmol/L BUN (7-17) mg/dL Creatinine (0.52-1.04) mg/dL Glucose (74-99) mg/dL POC Glucose (mg/dL) 262 H 185 H 134 H (75-99) mg/dL Iron (50-170) ug/dL Iron Saturation (12.00-45.00) AST (14-36) U/L Total Creatine Kinase (30-135) U/L Total Protein (6.3-8.2) g/dL Albumin (3.5-5.0) g/dL HDL Cholesterol (40-60) mg/dL Stool Occult Blood (Negative) Assessment and Plan Assessment: Acute exacerbation of diastolic congestive heart failure and anemia. At her age , I agree with need of colonoscopy and we will consider an upper endoscopy at the same time as soon as her cardiac condition allows. Plan: I would plan a colonoscopy and an upper endoscopy during this hospitalization once she is medically stable. I will discuss with you and follow with you with interest.
[2017-09-24] MEDS: SODIUM FERRIC GLUCONAT-SUCROSE 125 MG in SODIUM CHLORIDE 0.9% 100 ML IVPB SCH (08:58)
[2017-09-24 11:10] LABS: HCT 23.4 % (34.0-46.0); HGB 7.4 gm/dL (11.4-16.0); Hypochromasia Slight; MCH 28.9 pg (25.0-35.0); MCHC 31.4 g/dL (31.0-37.0); Mean Platelet Volume 8.1; Platelet Count 255 k/uL (150-450); RBC 2.55 m/uL (3.80-5.40); RDW 14.8 % (11.5-15.5); WBC 8.9 k/uL (3.8-10.6)
[2017-09-24 11:28] LABS: Glucose,Whole Blood 137 mg/dL (75-99)
[2017-09-24] MEDS: FLUTICASONE 50MCG/SPRAY NASAL 16GM EA NOSTRIL SCH (12:28)
[2017-09-24] MEDS: diphenhydrAMINE 2% CREAM 28.4 GM TUBE TOPICAL SCH ×3 (12:28→20:46)
--- NOTE | 2017-09-24 14:06 | P.PN ---
Subjective Progress Note Date: 09/24/17 Principal diagnosis: Shortness of breath This is a 62-year-old female who follows with Dr. Núñez in the office. She has a known history of hypertension, hyperlipidemia, diabetes, coronary artery disease with prior stenting of the distal RCA. Patient also has known chronic kidney disease, she also states that she's been being followed as an outpatient because of low hemoglobin but has not yet had a colonoscopy performed. She states that she has no one to drive her for that. She presents to the hospital on this occasion with symptoms of progressively worsening shortness of breath. She also states that she gets intermittent tightness in the chest, symptoms worsen when she is lying flat. Patient also states that she 's noticed an increase in her peripheral edema. For these reasons she came to the hospital for further evaluation. EKG on admission showed a normal sinus rhythm with nonspecific ST-T wave changes. Chest x-ray shows congestive heart failure with pleural effusions. Blood pressure on admission 172/72, heart rate in the 80s. 92% on room air. Laboratory data was reviewed, white blood cell count on admission 10.9, 9.4 this morning. Hemoglobin on admission 8.0, 7.3 this morning. Platelet count 263. Sodium 141, potassium 5.1, BUN 54, creatinine 1.9. BNP level 1400. TSH 1.58. Stool for occult blood was positive. Patient denies having any blood in her stool or black stool. Patient was initiated on IV Lasix in the emergency room, she diuresed well through the night last night. At the time of my examination this morning, patient is sitting up at the side of her bed, states that her breathing is stable. 09/24/2017 Patient seen and examined today, sitting up in the chair at bedside. Edema improving. Weight down 1 kg today. Currently on by mouth Lasix. Potassium 5.4 , BUN 56, creatinine 1.5. Hemoglobin 7.4. Magnesium 1.8. Objective - Vital Signs Vital signs: Vital Signs Temp 97.9 F 09/24/17 07:45 Pulse 79 09/24/17 07:45 Resp 18 09/24/17 07:45 BP 165/73 09/24/17 07:45 Pulse Ox 91 L 09/24/17 07:45 Intake & Output 01/07/18 01/08/18 01/08/18 18:59 06:59 18:59 Intake Total 360 480 Output Total 1100 400 Balance -740 80 Weight 126.9 kg Intake: Oral 360 480 Output: Urine 1100 400 Other: Voiding Method Toilet Toilet Toilet # Voids 2 - Exam PHYSICAL EXAMINATION: HEENT: Head is atraumatic, normocephalic. Pupils equal, round. Neck is supple. There is no elevated jugular venous pressure. HEART EXAMINATION: Heart S1 and S2 systolic ejection murmur is heard CHEST EXAMINATION: Lungs are clear with fine rales to bilateral bases. ABDOMEN: Soft, ,nontender. Bowel sounds are heard. No organomegaly noted. EXTREMITIES:[ 2+ peripheral pulses with trace to 1+ evidence of peripheral edema , bilateral venous stasis to both lower legs with mild ulcerations noted. NEUROLOGIC patient is awake, alert and oriented -3. - Labs CBC & Chem 7: 09/24/17 06:14 09/24/17 06:14 Labs: Abnormal Lab Results - Last 24 Hours (Table) 09/21/17 09/23/17 09/23/17 Range/Units 05:08 16:39 20:58 RBC (3.80-5.40) m/uL Hgb (11.4-16.0) gm/dL Hct (34.0-46.0) % Potassium (3.5-5.1) mmol/L Chloride (98-107) mmol/L Carbon Dioxide (22-30) mmol/L BUN (7-17) mg/dL Creatinine (0.52-1.04) mg/dL Glucose (74-99) mg/dL POC Glucose (mg/dL) 119 H 189 H (75-99) mg/dL RBC Folate 1,388 H (280 - 791) ng/mL 09/24/17 09/24/17 09/24/17 Range/Units 06:13 06:14 06:14 RBC 2.55 L (3.80-5.40) m/uL Hgb 7.4 L (11.4-16.0) gm/dL Hct 23.4 L (34.0-46.0) % Potassium 5.4 H (3.5-5.1) mmol/L Chloride 109 H (98-107) mmol/L Carbon Dioxide 21 L (22-30) mmol/L BUN 56 H (7-17) mg/dL Creatinine 1.58 H (0.52-1.04) mg/dL Glucose 185 H (74-99) mg/dL POC Glucose (mg/dL) 215 H (75-99) mg/dL RBC Folate (280 - 791) ng/mL 09/24/17 Range/Units 11:19 RBC (3.80-5.40) m/uL Hgb (11.4-16.0) gm/dL Hct (34.0-46.0) % Potassium (3.5-5.1) mmol/L Chloride (98-107) mmol/L Carbon Dioxide (22-30) mmol/L BUN (7-17) mg/dL Creatinine (0.52-1.04) mg/dL Glucose (74-99) mg/dL POC Glucose (mg/dL) 137 H (75-99) mg/dL RBC Folate (280 - 791) ng/mL Assessment and Plan Plan: Assessment and plan #1 diastolic congestive heart failure acute on chronic, echocardiogram with Doppler study performed in January revealed an ejection fraction of 55-60%. Patient currently on IV Lasix. #2 anemia, normocytic, stool for occult blood positive. #3 acute on chronic kidney disease, stage III. #4 hypertension, uncontrolled #5 diabetes #6 sleep apnea #7 known history of coronary artery disease with prior RCA stenting in 2014 #8 diabetes #9 family history of premature coronary artery disease Plan From cardiology's perspective, we'll continue the patient on her current medications. She is hoping to have a colonoscopy performed while she is here, as she has no way to get to an outpatient appointment. From our perspective she is stable. DNP note has been reviewed, I agree with a documented findings and plan of care. Patient was seen and examined.
--- NOTE | 2017-09-24 15:58 | P.PN ---
Subjective Progress Note Date: 09/24/17 Principal diagnosis: SOB No complaints. Objective - Vital Signs Vital signs: Vital Signs Temp 97.9 F 09/24/17 07:45 Pulse 71 09/24/17 12:00 Resp 18 09/24/17 07:45 BP 163/70 09/24/17 12:00 Pulse Ox 93 L 09/24/17 12:00 Intake & Output 09/23/17 09/24/17 09/24/17 18:59 06:59 18:59 Intake Total 360 480 Output Total 1100 400 Balance -740 80 Weight 126.9 kg Intake: Oral 360 480 Output: Urine 1100 400 Other: Voiding Method Toilet Toilet Toilet # Voids 2 - Exam General: non toxic, mild distress, appears at stated age, Obese Derm: no unusual rashes/lesions no unusual ecchymoses, warm, dryHead: atraumatic , normocephalic, symmetric Eyes: EOMI, no lid lag, anicteric sclera, pupils equal round reactive to light ENT: Nose and ears atraumatic, no thrush, + pharyngeal erythema, + Post nasal drip Neck: No thyromegaly, no cervical lymphadenopathy, trachea midline, supple Mouth: no lip lesion, mucus membranes moist Cardiovascular: S1S2 reg, no murmur, positive posterior tibial pulse bilateral, edema, capillary refill less than 2 seconds Lungs: decreased bs b/l bases , no accessory muscle use Abdominal: soft, nontender to palpation, no guarding, no appreciable organomegaly, normal bowel sounds Ext: no gross muscle atrophy, muscle strength 5 out of 5 in all 4 extremities grossly, no contractures, Neuro: CN II-XI grossly intact, light touch intact all 4 extremities, finger to nose within normal limits, Psych: Alert, oriented, appropriate affect - Labs CBC & Chem 7: 09/24/17 06:14 09/24/17 06:14 Labs: Abnormal Lab Results - Last 24 Hours (Table) 09/21/17 09/23/17 09/23/17 Range/Units 05:08 16:39 20:58 RBC (3.80-5.40) m/uL Hgb (11.4-16.0) gm/dL Hct (34.0-46.0) % Potassium (3.5-5.1) mmol/L Chloride (98-107) mmol/L Carbon Dioxide (22-30) mmol/L BUN (7-17) mg/dL Creatinine (0.52-1.04) mg/dL Glucose (74-99) mg/dL POC Glucose (mg/dL) 119 H 189 H (75-99) mg/dL RBC Folate 1,388 H (280 - 791) ng/mL 09/24/17 09/24/17 09/24/17 Range/Units 06:13 06:14 06:14 RBC 2.55 L (3.80-5.40) m/uL Hgb 7.4 L (11.4-16.0) gm/dL Hct 23.4 L (34.0-46.0) % Potassium 5.4 H (3.5-5.1) mmol/L Chloride 109 H (98-107) mmol/L Carbon Dioxide 21 L (22-30) mmol/L BUN 56 H (7-17) mg/dL Creatinine 1.58 H (0.52-1.04) mg/dL Glucose 185 H (74-99) mg/dL POC Glucose (mg/dL) 215 H (75-99) mg/dL RBC Folate (280 - 791) ng/mL 09/24/17 Range/Units 11:19 RBC (3.80-5.40) m/uL Hgb (11.4-16.0) gm/dL Hct (34.0-46.0) % Potassium (3.5-5.1) mmol/L Chloride (98-107) mmol/L Carbon Dioxide (22-30) mmol/L BUN (7-17) mg/dL Creatinine (0.52-1.04) mg/dL Glucose (74-99) mg/dL POC Glucose (mg/dL) 137 H (75-99) mg/dL RBC Folate (280 - 791) ng/mL Assessment and Plan Plan: #1 Acute exacerbation of diastolic congestive heart failure, last known ejection fraction 55-60% -Continue lasix dose to 40 mg bid p.o -Holding KEN inhibitor with increased creatinine, continue beta mono -Repeat echocardiogram showed normal ejection fraction. -Cardiology on board #2 Normocytic anemia -Known to patient and has been following with Dr. Myers -B12 WNL -RBC folate high -Iron deficient--on iron replacement IV -D/W GI, colonoscopy tomorrow. #3 Acute on chronic sinusitis -Seems to be allergic in nature. -Continue flonase and claritin, has recently completed a course of abx -S/P Afrin X 4 doses -Consider singulair if no improvement #4 ILANA on CKD 3 -Creatinine getting closer to baseline today -Dr. John on consult -Avoid additional nephrotoxic agents, hold KEN inhibitor -Follow creatinine closely with diuresis -Had renal Doppler which showed possible chronic kidney disease and left-sided renal artery stenosis--consider MRA renal arteries, would defer to nephro. -Need to followup with nephro outpatient #6 Hypertension -Better -Continue with Norvasc, metoprolol, hydralazine for now, hold KEN inhibitor with worsening creatinine #7 Diabetes mellitus type 2 uncontrolled -BS now controlled -Continue lantus to 65 units daily. -Continue short acting 3 times daily 25 units -SSI -Hemoglobin A1c recently checked 10 #8 Morbid obesity -Counseled re weight loss #9 Deconditioning: Start PT and OT #10 DVT prophylaxis: Lovenox s.q
[2017-09-24 16:13] LABS: Glucose,Whole Blood 100 mg/dL (75-99)
[2017-09-24] MEDS ORDERED: PEG 3350-NA SULF,BICARB,CL/KCL 4,000 ML BOTTLE PO ONE (16:15)
[2017-09-24] MEDS: ALPRAZolam 0.25 MG TAB PO PRN (17:31)
[2017-09-24] MEDS: ATORVASTATIN 80 MG TAB PO SCH (20:46)
[2017-09-24 20:56] LABS: Glucose,Whole Blood 180 mg/dL (75-99)
[2017-09-24] MEDS: INSULIN DETEMIR 100 UNIT/ML 10 ML VIAL SQ SCH (21:01)
[2017-09-25] MEDS: ISOSORBIDE MONONITRATE ER 30 MG TAB.ER.24H PO SCH (05:46)
[2017-09-25] MEDS: amLODIPine 5 MG TAB PO SCH (05:46)
[2017-09-25] MEDS: hydrALAZINE HCL 50 MG TAB PO SCH ×2 (05:46→17:25)
[2017-09-25] MEDS: ALPRAZolam 0.25 MG TAB PO PRN (05:50)
[2017-09-25 06:06] LABS: Glucose,Whole Blood 120 mg/dL (75-99)
[2017-09-25] MEDS: INSULIN ASPART 100 UNIT/ML 1 ML 10 ML VIAL SQ SCH ×6 (06:07→18:02)
[2017-09-25 06:28] LABS: Calcium 9.1 mg/dL (8.4-10.2); Potassium 4.9 mmol/L (3.5-5.1)
[2017-09-25] MEDS ORDERED: PROPOFOL 10 MG/ML 20 ML VIAL IV ONE (08:08)
[2017-09-25] MEDS ORDERED: LACTATED RINGERS 1,000 ML IV ONE (08:09)
--- NOTE | 2017-09-25 08:34 | P.PCN ---
Date of Procedure: 09/25/17 Procedure(s) Performed: Brief history: Patient is a pleasant 62-year-old white female, admitted to the hospital with exacerbation of congestive heart failure and second severe symptomatic iron deficiency anemia and hemoglobin of 7.5 g/dL. She is hence scheduled for an elective upper endoscopy as well as colonoscopy. Procedure performed: Esophagogastroduodenoscopy with biopsy Colonoscopy with snare polypectomy Preoperative diagnosis: Symptomatic iron deficiency anemia Anesthesia: MAC Procedure: After informed consent was obtained from the patient was brought into the endoscopy unit and IV sedation was administered by anesthesia under continuous monitoring. Initially upper endoscopy was done. The Olympus GF 160 video endoscope was inserted inserted into the mouth and esophagus intubated without any difficulty and was gradually advanced into the stomach and duodenum and carefully examined. The bulb and second part of the duodenum appeared normal. Biopsies were done from the duodenum to rule out celiac disease. The scope was then withdrawn into the stomach adequately insufflated with air and upon careful examination the antrum and body, cardia and fundus appeared normal. The scope was then withdrawn into the esophagus. The GE junction was located at 40 cm to the incisors. It appeared regular with no erythema erosions or ulcerations. Rest of the esophagus appeared normal. Patient tolerated the procedure well. At this time the patient continued to remain sedation. Initial digital rectal examination was normal. Olympus CF 160 video colonoscope was then inserted into the rectum and gradually advanced to the cecum without any difficulty. Careful examination was performed as the scope was gradually being withdrawn. The prep was excellent. The cecum, ascending colon, transverse colon appeared normal. In the descending colon there was a 1 cm polyp that was removed by snare polypectomy. The rest of the, descending colon, sigmoid colon and rectum appeared normal. Retroflexion was performed in the rectum and no lesions were noted. Patient tolerated the procedure well. Impression: 1. Upper endoscopy was within normal limits with no evidence of esophagitis, peptic ulcer disease or angiectasia. 2. Colonoscopy revealed 1 cm descending colon polyps status post snare polypectomy. Rest of the colon appeared normal. Recommendations: Findings of this examination were discussed with the patient as well as her family. She was advised to follow with the biopsy results. She can be discharged home today with outpatient follow-up in 2-3 weeks.
[2017-09-25] MEDS: FUROSEMIDE 40 MG TAB PO SCH ×2 (09:16→17:25)
[2017-09-25] MEDS: METOPROLOL TARTRATE 25 MG TAB PO SCH (09:16)
[2017-09-25] MEDS: ENOXAPARIN 40 MG/0.4 ML SYRINGE SQ SCH (09:16)
[2017-09-25] MEDS: LORATADINE 10 MG TAB PO SCH (09:16)
[2017-09-25] MEDS: diphenhydrAMINE 2% CREAM 28.4 GM TUBE TOPICAL SCH (09:16)
[2017-09-25] MEDS: PANTOPRAZOLE 40 MG TABLET PO SCH (09:16)
[2017-09-25] MEDS: FLUTICASONE 50MCG/SPRAY NASAL 16GM EA NOSTRIL SCH (09:17)
[2017-09-25 10:59] VITALS: RESP 16; TEMP 97.3
[2017-09-25 12:11] LABS: Glucose,Whole Blood 229 mg/dL (75-99)
[2017-09-25 12:13] VITALS: BP 146/64; PULSE 75
[2017-09-25] MEDS: SODIUM FERRIC GLUCONAT-SUCROSE 125 MG in SODIUM CHLORIDE 0.9% 100 ML IVPB SCH (12:15)
--- NOTE | 2017-09-25 13:21 | P.DS ---
Providers Date of admission: 09/20/17 19:29 Expected date of discharge: 09/25/17 Attending physician: Sammi Hilton DO Consults: 09/20/17 19:29 Consult Physician Routine Consulting Provider: Fareed Villafana Consult Reason/Comments: gi hemorrhage Do you want consulting provider notified?: Yes Consult Physician Routine Consulting Provider: Francisco Saldivar Consult Reason/Comments: chf Do you want consulting provider notified?: Yes 09/20/17 20:06 Consult Physician Routine Consulting Provider: Aura John Consult Reason/Comments: binh on ckd Do you want consulting provider notified?: Yes Primary care physician: [facility] Course: 62-year-old female with a past medical history of coronary artery disease status post stenting, congestive heart failure with ejection fraction 55 -60%, anemia, and chronic kidney disease who presented to the emergency department with complaints of shortness of breath, worse with movement and better with rest. She had some fatigue, chills and felt shaky. She also had had a nonproductive cough. No chest pain. In the ER she underwent an extensive evaluation. On her initial vital signs she was found to be slightly hypertensive with a blood pressure of 172/72. Initial laboratory analysis showed hemoglobin of 8, positive Hemoccult, potassium of 5.2, and a creatinine of 1.7 up from her baseline of 1.4. Her EKG was unremarkable. Chest x-ray showed mild congestive heart failure. She was given a dose of aspirin and nitro in the ER. She was subsequently admitted to the hospital because of acute exacerbation of CHF and possible GI hemorrhage. She had acute exacerbation of diastolic congestive heart failure, normal ejection fraction according to a repeat echocardiogram she had during the hospitalization. Patient was treated with Lasix IV and diuresed well with it. The KEN inhibitor was held due to increasing creatinine but she was continued beta mono. She was also seen in consultation with cardiology who concurred with the management. She also complained of a sore throat, nasal congestion, and rhinorrhea. She has recently completed a course of antibiotics for sinusitis with Dr. Amin. She does have history of chronic sinusitis which appears to be ALLERGIC in nature. She was treated with Flonase, Claritin and was given Afrin 4 doses. [place] better with that. She states that Dr. Amin has been following her blood counts for the last 6-8 weeks. Because she was iron deficient she was going to be scheduled to have outpatient colonoscopy but she going get that done because of difficulties with transportation. Repeat anemia workup while she was in the hospital showed normal levels of RBC folate and vitamin B12. She did have some iron deficiency and for that she was treated with IV iron replacement for 3 days. She also had a colonoscopy today which showed a small polyp, biopsy was taken. EGD was within normal limits. Her hemoglobin remained stable throughout admission. Regarding her chronic renal insufficiency creatinine did bump up with diuresis but it came back to her baseline upon the day of discharge. She was seen in consultation Dr. John. She likely has rapidly progressive renal disease secondary to diabetic nephropathy versus cardiorenal syndrome. Unable to rule out renal artery stenosis based on renal Doppler she had several months ago. Patient will be following up with nephrology as an outpatient to quantify her proteinuria and to consider doing an MRA of the renal arteries. She did have a renal ultrasound while she was in the hospital and that did not show any evidence of hydronephrosis. She has also been struggling with elevated blood pressures for the last year in her typical blood pressures are in the 170s. She follows with Dr. Núñez at baseline. She also states she saw an home theatre technician for the first time today Dr. Samuels secondary to her blood sugars being elevated. She is also supposed to start seeing Dr. John secondary to her creatinine increasing. She is supposed to be getting an outpatient sleep study but has not been able to do this either as she care for her handicap niece. Initially throughout the admission and her blood sugars were uncontrolled, Lantus had to be increased to 65 units daily and short-acting aspart had to be increased to 25 units 3 times a day. Her A1c came back at around 10 indicating very poor diabetes control. The patient was told that she requires strict control of her blood sugar and blood pressure for better outcomes. Patient was noted to be morbidly obese, her BMI was 44. She was strongly counseled regarding weight loss and exercise. Today patient will be discharged home in stable condition. She was instructed to follow up with nephrology, GI and her primary care physician upon discharge. Time for discharge 35 minutes. Plan - Discharge Summary Discharge Rx Participant: No New Discharge Prescriptions: New Acetaminophen Tab [Tylenol] 650 mg PO Q6HR PRN tab PRN Reason: Mild Pain Or Fever > 100.5 Continue Loratadine [Claritin] 10 mg PO DAILY Aspirin 81 mg PO DAILY Atorvastatin [Lipitor] 80 mg PO HS Insulin Glulisine [Apidra] 15 unit SQ TID Insulin Glargine [Lantus] 50 unit SQ HS Metoprolol Tartrate [Lopressor] 75 mg PO BID #60 tablet hydrALAZINE HCL [Apresoline] 50 mg PO BID amLODIPine [Norvasc] 5 mg PO BID Furosemide [Lasix] 40 mg PO BID Ranitidine HCl 150 mg PO BID Lisinopril [Zestril] 20 mg PO BID Fluticasone Propionate [Flonase Allergy Relief] 2 spray EA NOSTRIL DAILY Discharge Medication List Loratadine [Claritin] 10 mg PO DAILY 01/05/15 [History] Aspirin 81 mg PO DAILY 04/16/15 [History] Atorvastatin [Lipitor] 80 mg PO HS 10/14/15 [History] Insulin Glulisine [Apidra] 15 unit SQ TID 11/05/15 [History] Insulin Glargine [Lantus] 50 unit SQ HS 01/22/17 [History] Metoprolol Tartrate [Lopressor] 75 mg PO BID #60 tablet 01/24/17 [Rx] Furosemide [Lasix] 40 mg PO BID 08/15/17 [History] amLODIPine [Norvasc] 5 mg PO BID 08/15/17 [History] hydrALAZINE HCL [Apresoline] 50 mg PO BID 08/15/17 [History] Fluticasone Propionate [Flonase Allergy Relief] 2 spray EA NOSTRIL DAILY [History] Lisinopril [Zestril] 20 mg PO BID 09/20/17 [History] Ranitidine HCl 150 mg PO BID 09/20/17 [History] Acetaminophen Tab [Tylenol] 650 mg PO Q6HR PRN tab 09/25/17 [Rx] Follow up Appointment(s)/Referral(s): Gale Amin MD [Primary Care Provider] - 1-2 days
--- NOTE | 2017-09-25 15:32 | P.PN ---
Subjective Progress Note Date: 09/25/17 Principal diagnosis: Shortness of breath This is a 62-year-old female who follows with Dr. Núñez in the office. She has a known history of hypertension, hyperlipidemia, diabetes, coronary artery disease with prior stenting of the distal RCA. Patient also has known chronic kidney disease, she also states that she's been being followed as an outpatient because of low hemoglobin but has not yet had a colonoscopy performed. She states that she has no one to drive her for that. She presents to the hospital on this occasion with symptoms of progressively worsening shortness of breath. She also states that she gets intermittent tightness in the chest, symptoms worsen when she is lying flat. Patient also states that she 's noticed an increase in her peripheral edema. For these reasons she came to the hospital for further evaluation. EKG on admission showed a normal sinus rhythm with nonspecific ST-T wave changes. Chest x-ray shows congestive heart failure with pleural effusions. Blood pressure on admission 172/72, heart rate in the 80s. 92% on room air. Laboratory data was reviewed, white blood cell count on admission 10.9, 9.4 this morning. Hemoglobin on admission 8.0, 7.3 this morning. Platelet count 263. Sodium 141, potassium 5.1, BUN 54, creatinine 1.9. BNP level 1400. TSH 1.58. Stool for occult blood was positive. Patient denies having any blood in her stool or black stool. Patient was initiated on IV Lasix in the emergency room, she diuresed well through the night last night. At the time of my examination this morning, patient is sitting up at the side of her bed, states that her breathing is stable. 09/24/2017 Patient seen and examined today, sitting up in the chair at bedside. Edema improving. Weight down 1 kg today. Currently on by mouth Lasix. Potassium 5.4 , BUN 56, creatinine 1.5. Hemoglobin 7.4. Magnesium 1.8. 09/25/2017 Patient seen and examined today, overall feeling much better. She did undergo an EGD and colonoscopy today , EGD revealed no evidence of esophagitis, peptic ulcer disease or angiectasia. Colonoscopy revealed a 1 cm descending colon polyp status post snare polypectomy, the rest of the colon appeared normal. From cardiology's perspective, patient may be able to be discharged home today we will make her a follow-up appointment in the office post discharge. Objective - Vital Signs Vital signs: Vital Signs Temp 97.3 F L 09/25/17 08:00 Pulse 75 09/25/17 12:00 Resp 16 09/25/17 12:00 BP 146/64 09/25/17 12:00 Pulse Ox 92 L 09/25/17 12:00 Intake & Output 09/24/17 09/25/17 09/25/17 18:59 06:59 18:59 Intake Total 860 780 Output Total 400 200 Balance 460 580 Weight 127.9 kg 127.9 kg Intake: IV 20 300 flush 20 Oral 840 480 Output: Urine 400 200 Other: Voiding Method Toilet Toilet Toilet # Voids 1 1 # Bowel Movements 4 0 - Exam PHYSICAL EXAMINATION: HEENT: Head is atraumatic, normocephalic. Pupils equal, round. Neck is supple. There is no elevated jugular venous pressure. HEART EXAMINATION: Heart S1 and S2 systolic ejection murmur is heard CHEST EXAMINATION: Lungs are clear with fine rales to bilateral bases. ABDOMEN: Soft, ,nontender. Bowel sounds are heard. No organomegaly noted. EXTREMITIES:[ 2+ peripheral pulses with trace to 1+ evidence of peripheral edema , bilateral venous stasis to both lower legs with mild ulcerations noted. NEUROLOGIC patient is awake, alert and oriented -3. - Labs CBC & Chem 7: 09/24/17 06:14 09/25/17 05:25 Labs: Abnormal Lab Results - Last 24 Hours (Table) 09/24/17 09/24/17 09/25/17 Range/Units 16:11 20:54 05:25 BUN 45 H (7-17) mg/dL Creatinine 1.41 H (0.52-1.04) mg/dL Glucose 109 H (74-99) mg/dL POC Glucose (mg/dL) 100 H 180 H (75-99) mg/dL 09/25/17 09/25/17 Range/Units 06:02 12:10 BUN (7-17) mg/dL Creatinine (0.52-1.04) mg/dL Glucose (74-99) mg/dL POC Glucose (mg/dL) 120 H 229 H (75-99) mg/dL Assessment and Plan Plan: Assessment and plan #1 diastolic congestive heart failure acute on chronic, echocardiogram with Doppler study performed in January revealed an ejection fraction of 55-60%. Patient currently on IV Lasix. #2 anemia, normocytic, stool for occult blood positive. #3 acute on chronic kidney disease, stage III. #4 hypertension, uncontrolled #5 diabetes #6 sleep apnea #7 known history of coronary artery disease with prior RCA stenting in 2014 #8 diabetes #9 family history of premature coronary artery disease Plan From cardiology's perspective, we'll continue the patient on her current medications. Colonoscopy did not reveal any evidence of active bleeding, there was 1: Polyp found, status post snare polypectomy. Patient may be able to be discharged home from cardiology's perspective, we'll make her a follow-up appointment in the office post discharge. DNP note has been reviewed, I agree with a documented findings and plan of care. Patient was seen and examined.
[2017-09-25 17:18] LABS: Glucose,Whole Blood 313 mg/dL (75-99)
[2017-09-25] MEDS: INSULIN DETEMIR 100 UNIT/ML 10 ML VIAL SQ SCH (18:00)
--- NOTE | 2017-09-25 21:08 | PN ---
PROGRESS NOTE The patient is seen for followup for acute kidney injury. She was admitted to the hospital with fluid overload, diastolic heart failure. She has been diuresed. Her renal function has improved. Creatinine now down to 1.4 mg/dL. She was as high as 1.91. Currently, patient feels well. She denies any significant complaints. EXAMINATION: Blood pressure is 121/66, heart rate 71 per minute. She is afebrile. Examination of the heart S1, S2. Examination lungs bilateral breath sounds are heard. ABDOMEN: Soft, non-tender, obese. Examination lower extremity shows no significant edema. UNDERGROUND FOREMAN exam is grossly intact. LAB: Show sodium 141, potassium 4.9, BUN 45, serum creatinine 1.41, calcium 9.1. ASSESSMENT: 1. Acute kidney injury, cardiorenal, currently improved. 2. Diastolic heart failure, now improved status post diuresis. 3. Anemia with severe iron deficiency status post endoscopy 1 polyp was noted on the colonoscopy results of which are pending. The hemoglobin was 7.4 g/dL yesterday. 4. Acute kidney injury secondary to anemia is well as heart failure, currently improved. 5. Rule out chronic kidney disease. 6. Severe iron deficiency status post IV iron. 7. Status post EGD and colonoscopy with no active bleeding noted. 8. Hypertension currently controlled. PLAN: The patient will need follow up as outpatient in about 1-2 weeks time. MMODL / IJN: [id number] /
== END 2017-09-25 18:23 | disposition home or self-care (01) | DRG 291 ==
LOC: EC 16:13 → 6SEL 19:29
PROVIDERS: ADMIT Internal Medicine; ATTEND Internal Medicine
PROC: 0DB98ZX Excision of Duodenum, Via Natural or Artificial Opening Endoscopic, Diagnostic (ICD-10-PCS; principal; 2017-09-21)
PROC: 0DBM8ZX Excision of Descending Colon, Via Natural or Artificial Opening Endoscopic, Diagnostic (ICD-10-PCS; 2017-09-21)
DX: I13.0 Hypertensive heart and chronic kidney disease with heart failure and stage 1 through stage 4 chronic kidney disease, or unspecified chronic kidney disease (principal); N17.0 Acute kidney failure with tubular necrosis; E11.22 Type 2 diabetes mellitus with diabetic chronic kidney disease; E11.40 Type 2 diabetes mellitus with diabetic neuropathy, unspecified; E66.01 Morbid (severe) obesity due to excess calories; I08.1 Rheumatic disorders of both mitral and tricuspid valves; I50.33 Acute on chronic diastolic (congestive) heart failure; Z68.41 Body mass index [BMI] 40.0-44.9, adult; D12.4 Benign neoplasm of descending colon; D50.9 Iron deficiency anemia, unspecified; E11.65 Type 2 diabetes mellitus with hyperglycemia; E87.5 Hyperkalemia; E78.5 Hyperlipidemia, unspecified; F41.9 Anxiety disorder, unspecified; G47.30 Sleep apnea, unspecified; I25.10 Atherosclerotic heart disease of native coronary artery without angina pectoris; I25.2 Old myocardial infarction; J01.90 Acute sinusitis, unspecified; J30.2 Other seasonal allergic rhinitis; K21.9 Gastro-esophageal reflux disease without esophagitis; N18.3 Chronic kidney disease, stage 3 (moderate); Z79.4 Long term (current) use of insulin; Z79.82 Long term (current) use of aspirin; Z79.899 Other long term (current) drug therapy; Z95.5 Presence of coronary angioplasty implant and graft; Z88.1 Allergy status to other antibiotic agents; Z88.5 Allergy status to narcotic agent; Z91.040 Latex allergy status; Z88.2 Allergy status to sulfonamides; Z91.048 Other nonmedicinal substance allergy status; Z79.51 Long term (current) use of inhaled steroids; Z71.3 Dietary counseling and surveillance; Z82.49 Family history of ischemic heart disease and other diseases of the circulatory system
CPT/HCPCS: 36415; 43239; 45385; 71046; 76770; 80048; 80053; 80061; 81001; 82272; 82550; 82553; 82607; 82728; 82747; 83036; 83540; 83550; 83735; 83880; 84100; 84443; 84484; 85025; 85027; 85610; 85730; 88305; 93005; 93306; 99285

== ENCOUNTER 2017-09-25 21:30 | Observation (INO) | payer OTHER ==
--- NOTE | 2017-09-25 21:41 | ED ---
General Adult HPI - General Stated complaint: CHERYL Time Seen by Provider: 09/25/17 21:37 Source: RN notes reviewed, old records reviewed - History of Present Illness Initial comments: This is a 62-year-old female ER for evaluation. This patient is a is presenting for evaluation of shortness of breath severe shortness of breath. Patient states she got home today patient states she got home today and could not breathe, had no exertional or exercise capability. Patient denies fever or chest pain - Related Data Home Medications Medication Instructions Recorded Confirmed Loratadine [Claritin] 10 mg PO DAILY 01/05/15 09/25/17 Aspirin 81 mg PO DAILY 04/16/15 09/25/17 Atorvastatin [Lipitor] 80 mg PO HS 10/14/15 09/25/17 Insulin Glulisine [Apidra] 15 unit SQ TID 11/05/15 09/25/17 Insulin Glargine [Lantus] 50 unit SQ HS 01/22/17 09/25/17 Furosemide [Lasix] 40 mg PO BID 08/15/17 09/25/17 amLODIPine [Norvasc] 5 mg PO BID 08/15/17 09/25/17 hydrALAZINE HCL [Apresoline] 50 mg PO BID 08/15/17 09/25/17 Fluticasone Propionate [Flonase 2 spray EA NOSTRIL DAILY 09/20/17 09/25/17 Allergy Relief] Lisinopril [Zestril] 20 mg PO BID 09/20/17 09/25/17 Ranitidine HCl 150 mg PO BID 09/20/17 09/25/17 Previous Rx's Medication Instructions Recorded Metoprolol Tartrate [Lopressor] 75 mg PO BID #60 tablet 01/24/17 Acetaminophen Tab [Tylenol] 650 mg PO Q6HR PRN tab 09/25/17 Allergies Allergy/AdvReac Type Severity Reaction Status Date / Time cephalexin monohydrate Allergy Rash/Hives Verified 09/25/17 21:52 [From Keflex] ciprofloxacin [From Cipro] Allergy Swelling Verified 09/25/17 21:52 ciprofloxacin HCl Allergy Swelling Verified 09/25/17 21:52 [From Cipro] codeine Allergy Unknown Verified 09/25/17 21:52 latex Allergy Itching Verified 09/25/17 21:52 sulfamethoxazole Allergy Itching Verified 09/25/17 21:52 [From Bactrim] trimethoprim [From Bactrim] Allergy Itching Verified 09/25/17 21:52 adhesive tape AdvReac Itching Verified 09/25/17 21:52 Review of Systems ROS Statement: Those systems with pertinent positive or pertinent negative responses have been documented in the HPI. ROS Other: All systems not noted in ROS Statement are negative. Past Medical History Past Medical History: Coronary Artery Disease (CAD), Heart Failure, Diabetes Mellitus, Hyperlipidemia, Hypertension, Myocardial Infarction ([place]) Additional Past Medical History / Comment(s): edema, seasonal allergies, Diabetic ulcer-SEES DR ZELAYA FOR WOUND CARE, anemia, neuropathy, CKD Last Myocardial Infarction Date:: 01/10/15 History of Any Multi-Drug Resistant Organisms: None Reported Past Surgical History: Heart Catheterization With Stent Additional Past Surgical History / Comment(s): PT HAD STENT TO DISTAL RCA IN DECEMBER 2014, carpal tunnel bilateral hands, Eye surgery to cauterize bleeding November, Past Anesthesia/Blood Transfusion Reactions: Family History of Problems w/ Anesthesia, Motion Sickness Additional Past Anesthesia/Blood Transfusion Reaction / Comment(s): states mother had difficulty coming out of anesthesia Date of Last Stent Placement:: 12/30 Past Psychological History: Anxiety Additional Psychological History / Comment(s): Pt states she lives in her home with her adult neice and nephew. She is independent. She uses no assistive device. She drives. Smoking Status: Never smoker Past Alcohol Use History: None Reported Past Drug Use History: None Reported - Past Family History Sister(s) Family Medical History: Diabetes Mellitus, Hypertension, Myocardial Infarction ( [place]), Vascular Disorder Additional Family Medical History / Comment(s): post procedure of five stents Mother Family Medical History: CVA/TIA, Diabetes Mellitus, Myocardial Infarction ([place]) Additional Family Medical History / Comment(s): TIA's, PVD. Mother at age 65yrs. Father Family Medical History: Dementia, Diabetes Mellitus, Hypertension Additional Family Medical History / Comment(s): Father at age 72 yrs. General Exam General appearance: alert, in no apparent distress Head exam: Present: atraumatic, normocephalic, normal inspection Eye exam: Present: normal appearance, PERRL, EOMI. Absent: scleral icterus, conjunctival injection, periorbital swelling ENT exam: Present: normal exam, mucous membranes moist Neck exam: Present: normal inspection. Absent: tenderness, meningismus, lymphadenopathy Respiratory exam: Present: normal lung sounds bilaterally. Absent: respiratory distress, wheezes, rales, rhonchi, stridor Cardiovascular Exam: Present: regular rate, normal rhythm, normal heart sounds. Absent: systolic murmur, diastolic murmur, rubs, gallop, clicks GI/Abdominal exam: Present: soft, normal bowel sounds. Absent: distended, tenderness, guarding, rebound, rigid Extremities exam: Present: normal inspection, full ROM, normal capillary refill. Absent: tenderness, pedal edema, joint swelling, calf tenderness Back exam: Present: normal inspection Neurological exam: Present: alert, oriented X3, CN II-XII intact Psychiatric exam: Present: normal affect, normal mood Skin exam: Present: warm, dry, intact, normal color. Absent: rash Course Vital Signs 09/25/17 09/25/17 09/25/17 21:41 22:32 23:07 Temperature 98.5 F Pulse Rate 85 82 Respiratory 20 22 20 Rate Blood Pressure 182/77 173/77 O2 Sat by Pulse 100 95 Oximetry EKG Findings - EKG Comments: EKG Findings:: EKG shows normal sinus rhythm rate of 79, AK 180, QRS 84, QTc 454 Medical Decision Making - Medical Decision Making 61 female to ER for evaluation of shortness of breath, positive CHF, will admit for diuresis and cardiology evaluation - Lab Data Result diagrams: 09/25/17 22:06 09/25/17 22:06 Lab Results 09/25/17 09/25/17 09/25/17 Range/Units 22:06 22:06 22:06 WBC 10.6 (3.8-10.6) k/uL RBC 2.65 L (3.80-5.40) m/uL Hgb 7.5 L (11.4-16.0) gm/dL Hct 23.3 L (34.0-46.0) % MCV 88.1 (80.0-100.0) fL MCH 28.3 (25.0-35.0) pg MCHC 32.1 (31.0-37.0) g/dL RDW 15.5 (11.5-15.5) % Plt Count 278 (150-450) k/uL Neutrophils % 86 % Lymphocytes % 7 % Monocytes % 4 % Eosinophils % 2 % Basophils % 0 % Neutrophils # 9.1 H (1.3-7.7) k/uL Lymphocytes # 0.7 L (1.0-4.8) k/uL Monocytes # 0.4 (0-1.0) k/uL Eosinophils # 0.2 (0-0.7) k/uL Basophils # 0.0 (0-0.2) k/uL PT (9.0-12.0) sec INR (<1.2) APTT (22.0-30.0) sec Sodium 138 (137-145) mmol/L Potassium 5.1 (3.5-5.1) mmol/L Chloride 105 (98-107) mmol/L Carbon Dioxide 24 (22-30) mmol/L Anion Gap 9 mmol/L BUN 47 H (7-17) mg/dL Creatinine 1.50 H (0.52-1.04) mg/dL Est GFR (MDRD) Af Amer 43 (>60 ml/min/1.73 sqM) Est GFR (MDRD) Non-Af 35 (>60 ml/min/1.73 sqM) Glucose 205 H (74-99) mg/dL Calcium 9.1 (8.4-10.2) mg/dL Magnesium 1.8 (1.6-2.3) mg/dL Total Bilirubin 0.3 (0.2-1.3) mg/dL AST 19 (14-36) U/L ALT 36 (9-52) U/L Alkaline Phosphatase 85 (38-126) U/L Total Creatine Kinase 212 H (30-135) U/L CK-MB (CK-2) 1.9 (0.0-2.4) ng/mL CK-MB (CK-2) Rel Index 0.9 Troponin I 0.030 (0.000-0.034) ng/mL NT-Pro-B Natriuret Pep pg/mL Total Protein 6.1 L (6.3-8.2) g/dL Albumin 3.3 L (3.5-5.0) g/dL 09/25/17 09/25/17 Range/Units 22:06 22:06 WBC (3.8-10.6) k/uL RBC (3.80-5.40) m/uL Hgb (11.4-16.0) gm/dL Hct (34.0-46.0) % MCV (80.0-100.0) fL MCH (25.0-35.0) pg MCHC (31.0-37.0) g/dL RDW (11.5-15.5) % Plt Count (150-450) k/uL Neutrophils % % Lymphocytes % % Monocytes % % Eosinophils % % Basophils % % Neutrophils # (1.3-7.7) k/uL Lymphocytes # (1.0-4.8) k/uL Monocytes # (0-1.0) k/uL Eosinophils # (0-0.7) k/uL Basophils # (0-0.2) k/uL PT 10.1 (9.0-12.0) sec INR 1.0 (<1.2) APTT 25.1 (22.0-30.0) sec Sodium (137-145) mmol/L Potassium (3.5-5.1) mmol/L Chloride (98-107) mmol/L Carbon Dioxide (22-30) mmol/L Anion Gap mmol/L BUN (7-17) mg/dL Creatinine (0.52-1.04) mg/dL Est GFR (MDRD) Af Amer (>60 ml/min/1.73 sqM) Est GFR (MDRD) Non-Af (>60 ml/min/1.73 sqM) Glucose (74-99) mg/dL Calcium (8.4-10.2) mg/dL Magnesium (1.6-2.3) mg/dL Total Bilirubin (0.2-1.3) mg/dL AST (14-36) U/L ALT (9-52) U/L Alkaline Phosphatase (38-126) U/L Total Creatine Kinase (30-135) U/L CK-MB (CK-2) (0.0-2.4) ng/mL CK-MB (CK-2) Rel Index Troponin I (0.000-0.034) ng/mL NT-Pro-B Natriuret Pep 951 pg/mL Total Protein (6.3-8.2) g/dL Albumin (3.5-5.0) g/dL - Radiology Data Radiology results: report reviewed (Chest x-ray is positive for CHF), image reviewed Disposition Clinical Impression: CHF exacerbation, Peripheral edema, Dyspnea and respiratory abnormalities, Congestive heart failure Disposition: ADMITTED IP TO THIS HOSP Condition: Fair
[2017-09-25 22:14] LABS: Basophils % (A) 0 %; Eosinophils # (A) 0.2 k/uL (0-0.7); Eosinophils % (A) 2 %; HCT 23.3 % (34.0-46.0); HGB 7.5 gm/dL (11.4-16.0); Lymphocytes # (A) 0.7 k/uL (1.0-4.8); Lymphocytes % (A) 7 %; MCH 28.3 pg (25.0-35.0); MCHC 32.1 g/dL (31.0-37.0); MCV 88.1 fL (80.0-100.0); Mean Platelet Volume 7.8; Monocytes # (A) 0.4 k/uL (0-1.0); Monocytes % (A) 4 %; Neutrophils # (A) 9.1 k/uL (1.3-7.7); Neutrophils % (A) 86 %; Platelet Count 278 k/uL (150-450); RBC 2.65 m/uL (3.80-5.40); RDW 15.5 % (11.5-15.5); WBC 10.6 k/uL (3.8-10.6)
[2017-09-25 22:23] LABS: Partial Thromboplastin Time 25.1 sec (22.0-30.0); Prothrombin Time 10.1 sec (9.0-12.0)
[2017-09-25 22:37] LABS: Albumin 3.3 g/dL (3.5-5.0); Calcium 9.1 mg/dL (8.4-10.2); Magnesium 1.8 mg/dL (1.6-2.3); Potassium 5.1 mmol/L (3.5-5.1); Total Bilirubin 0.3 mg/dL (0.2-1.3); Total Protein 6.1 g/dL (6.3-8.2)
--- NOTE | 2017-09-25 22:41 | XR ---
EXAMINATION TYPE: XR chest 2V DATE OF EXAM: 09/25/2017 COMPARISON: 09/20/2017 HISTORY: Short of breath TECHNIQUE: Frontal and lateral views of the chest are obtained. FINDINGS: Heart is enlarged. There is pulmonary vascular congestion. There are chest leads. Thoracic aorta is atheromatous. There is slight blunting of costophrenic angles. IMPRESSION: There is evidence for congestive heart failure and small pleural effusions. Pulmonary ed shital is the same or slightly improved compared to last exam.
[2017-09-25 22:46] LABS: Creatine Kinase MB 1.9 ng/mL (0.0-2.4); Troponin I 0.03 ng/mL (0.000-0.034)
[2017-09-26] MEDS: FUROSEMIDE 10 MG/ML 4 ML VIAL IV SCH ×2 (01:54→08:26)
[2017-09-26 02:07] LABS: Glucose,Whole Blood 221 mg/dL (75-99)
[2017-09-26] MEDS ORDERED: hydrALAZINE HCL 20 MG/ML 1 ML VIAL IVP PRN (06:05)
[2017-09-26] MEDS ORDERED: ACETAMINOPHEN TAB 325 MG TAB PO PRN (06:08)
[2017-09-26] MEDS ORDERED: INSULIN ASPART 100 UNIT/ML 1 ML 10 ML VIAL SQ SCH (07:30)
[2017-09-26 07:38] LABS: Glucose,Whole Blood 163 mg/dL (75-99)
[2017-09-26] MEDS: INSULIN ASPART 100 UNIT/ML 1 ML 10 ML VIAL SQ SCH ×3 (07:43→17:49)
[2017-09-26] MEDS: METOPROLOL TARTRATE 25 MG TAB PO SCH ×2 (08:24→20:54)
[2017-09-26] MEDS: hydrALAZINE HCL 50 MG TAB PO SCH ×2 (08:25→20:53)
[2017-09-26] MEDS: ASPIRIN 81 MG PO SCH (08:25)
[2017-09-26] MEDS: amLODIPine 5 MG TAB PO SCH ×2 (08:25→20:53)
[2017-09-26] MEDS: LISINOPRIL 20 MG TAB PO SCH ×2 (08:26→20:54)
[2017-09-26] MEDS: FLUTICASONE 50MCG/SPRAY NASAL 16GM EA NOSTRIL SCH (08:26)
[2017-09-26] MEDS ORDERED: diphenhydrAMINE 2% CREAM 28.4 GM TUBE TOPICAL PRN (08:31)
[2017-09-26 08:33] LABS: Creatine Kinase MB 2.2 ng/mL (0.0-2.4)
[2017-09-26 08:42] LABS: Troponin I 0.261 ng/mL (0.000-0.034)
[2017-09-26] MEDS ORDERED: FAMOTIDINE 20 MG TAB PO SCH (09:00)
[2017-09-26] MEDS: SODIUM FERRIC GLUCONAT-SUCROSE 125 MG in SODIUM CHLORIDE 0.9% 100 ML IVPB SCH (09:13)
--- NOTE | 2017-09-26 09:50 | HP ---
HISTORY AND PHYSICAL CHIEF COMPLAINT: This is a white female, 62 years old, with shortness of breath. HISTORY OF PRESENT ILLNESS: A 62-year-old white female who came in to the ER for evaluation of more severe short of breath. She had just got home from the hospital yesterday for congestive heart failure. She could not breathe. She came right back to the hospital. Denies fever, chills, or chest pain. HOME MEDICATIONS: 1. Claritin. 2. Aspirin. 3. Lipitor. 4. Apidra. 5. Lantus. 6. Lasix. 7. Norvasc. 8. Apresoline. 9. Flonase. 10.Zestril. 11.Ranitidine. 12.Lopressor 75 b.i.d. 13.Atenolol. ALLERGIES: Allergies are CEPHALEXIN, CIPROFLOXACIN, CODEINE, LATEX, BACTRIM, ADHESIVE TAPE. REVIEW OF SYSTEMS: Fourteen-point review of systems negative except for as mentioned in HPI. PAST MEDICAL HISTORY: Coronary artery disease, heart failure, diabetes mellitus, dyslipidemia, hypertension, myocardial infarction, seasonal allergies, anemia, neuropathy, heart catheterization with stent to distal RCA in 2015, carpal tunnel bilateral hands, history of anxiety. FAMILY HISTORY: Sister with diabetes mellitus, hypertension, myocardial infarction, vascular disorder with 5 stents. Mother with CVA, TIA, diabetes mellitus, myocardial infarction. Father with dementia, diabetes mellitus, hypertension. PHYSICAL EXAMINATION: This is a white female in no apparent distress. HEENT: Normocephalic, atraumatic. OPHTHALMOLOGIC: Pupils equal, round, react to light and accommodation. ENT: External ear canals within normal limits. LUNGS: Show normal lung sounds bilaterally. CARDIOVASCULAR: Regular rate and rhythm. GI: Soft, nontender. No mass or organomegaly. EXTREMITIES: No cyanosis, clubbing, edema. BACK: Normal inspection. NEUROLOGIC: Cranial nerves are intact. PSYCH: Fair mood and affect. VITAL SIGNS: Temp 98.5, pulse 80 to 85, respiratory rate 20 to 22, blood pressure 170s to 180s over 70s, O2 of 95% to 100% on room air. EKG sinus rhythm. Hemoglobin 7.5. Creatinine is 1.5. Troponins negative. Albumin is 3.3. INR is 1.0. BNP is 951. ASSESSMENT: 1. Congestive heart failure exacerbation. 2. Peripheral edema. 3. Dyspnea and respiratory abnormalities, possible chronic obstructive pulmonary disease. BNP does not show an astounding elevation so possibly do a CAT scan of the chest to see what is going on in her lungs today. No D-dimer was ordered. MMODL / IJN: [id number] /
--- NOTE | 2017-09-26 10:40 | CT ---
EXAMINATION TYPE: CT chest wo con DATE OF EXAM: 09/26/2017 COMPARISON: CTA chest January 22, 2017 HISTORY: Dyspnea CT DLP: 1117.701 mGycm. Automated Exposure Control for Dose Reduction was Utilized. TECHNIQUE: CT scan of the thorax is performed without IV contrast. FINDINGS: LUNGS: Exam is degraded by respiratory motion artifact making evaluation suboptimal. There are small bilateral pleural effusions redemonstrated. There is diffuse groundglass opacity felt to reflect mild edema. There is bibasilar atelectasis and/or possibly consolidation left lung base. No pneumothorax is seen bilaterally. MEDIASTINUM: Lack of IV contrast is noted to limit evaluation for mediastinal and especially hilar ad enopathy. There are no definitive greater than 1 cm hilar or mediastinal lymph nodes. No significan t pericardial effusion is seen. There is severe three-vessel coronary artery calcification. Cardiomeg nils is redemonstrated. OTHER: Scattered calcifications throughout the spleen are again seen. Occasional calcifications throu ghout the liver is redemonstrated. Dependent density in gallbladder is consistent with gallbladder sl udge or small stones. There is multilevel moderate spurring in the lower thoracic spine. IMPRESSION: Suspect degree of CHF exacerbation still remains present as there is cardiomegaly with pe rsistent small bilateral pleural effusions and mild diffuse alveolar edema bilaterally redemonstrated . This has similar appearance to CT from January 22, 2017.
[2017-09-26 11:08] VITALS: BMI 43.3
[2017-09-26 11:26] LABS: Glucose,Whole Blood 289 mg/dL (75-99)
[2017-09-26 12:52] LABS: Troponin I 0.241 ng/mL (0.000-0.034)
--- NOTE | 2017-09-26 14:46 | P.CRDCN ---
History of Present Illness Consult date: 09/26/17 History of present illness: Mrs. Beach is a pleasant 62-year-old female with past medical history significant for hypertension, dyslipidemia, diabetes mellitus, coronary artery disease with PCI of distal RCA and chronic kidney disease. She follows with Dr. Núñez in the office. She presented to the hospital hours after being discharged last night for complaints of worsening shortness of breath. Last admission she was found to be anemic with positive occult blood in the stool and underwent a EGD/colonoscopy with Dr. Cm. This was found to be unremarkable with no active bleeding. She was also being treated for exacerbation of heart failure with b/l lower extremity edema. She states this had greatly improved. Emergency has initiated the patient on Lasix 40 mg IV every 8 hours. EKG on arrival reveals sinus mechanism with no acute ST or T-wave abnormalities. Chest xray reveals evidence of heart failure with small pleural effusion and pulmonary edema. When compared to previous it is noted to be slightly improved. Laboratory data reviewed, hgb 7.5, platelets 278, potassium 5.1, magnesium 1.8 , creatinine 1.5, BUN 47, proBNP 951, troponin 0.03, 0.261 and 0.241. Current home cardiac medications include hydralazine 50 mg twice a day, amlodipine 5 mg twice a day, Lopressor 75 mg twice a day, lisinopril 20 mg twice a day, Lasix 40 mg twice a day, atorvastatin 80 mg daily and aspirin 81 mg daily. Review of Systems At the time of my exam: CONSTITUTIONAL: Denies fever. Denies chills. EYES: Denies blurred vision. Denies vision changes. Denies eye pain. EARS, NOSE, MOUTH & THROAT: Denies headache. Denies sore throat. Denies ear pain. CARDIOVASCULAR: Denies chest pain. Complains of worsening exertional shortness of breath. Denies orthopnea. Denies PND. Denies palpitations. RESPIRATORY: Denies cough. GASTROINTESTINAL: Denies abdominal pain. Denies diarrhea. Denies constipation. Denies nausea. Denies vomiting. MUSCULOSKELETAL: Denies myalgias. INTEGUMENTARY: Denies pruitis. Denies rash. NEUROLOGIC: Denies numbness. Denies tingling. Denies weakness. PSYCHIATRIC: Denies anxiety. Denies depression. ENDOCRINE: Denies fatigue. Denies weight change. Denies polydipsia. Denies polyurina. GENITOURINARY: Denies burning, hematuria or urgency with micturation. HEMATOLOGIC: Denies history of anemia. Denies bleeding. Past Medical History Past Medical History: Coronary Artery Disease (CAD), Heart Failure, Diabetes Mellitus, Hyperlipidemia, Hypertension, Myocardial Infarction ([place]) Additional Past Medical History / Comment(s): edema, seasonal allergies, Diabetic ulcer-SEES DR ZELAYA FOR WOUND CARE, anemia, neuropathy, CKD Last Myocardial Infarction Date:: 01/10/15 History of Any Multi-Drug Resistant Organisms: None Reported Past Surgical History: Heart Catheterization With Stent Additional Past Surgical History / Comment(s): PT HAD STENT TO DISTAL RCA IN DECEMBER 2014, carpal tunnel bilateral hands, Eye surgery to cauterize bleeding November, Past Anesthesia/Blood Transfusion Reactions: Family History of Problems w/ Anesthesia, Motion Sickness Additional Past Anesthesia/Blood Transfusion Reaction / Comment(s): states mother had difficulty coming out of anesthesia Date of Last Stent Placement:: 12/30 Past Psychological History: Anxiety Additional Psychological History / Comment(s): Pt states she lives in her home with her adult iris and nephew. She is independent. She uses no assistive device. She drives. Smoking Status: Never smoker Past Alcohol Use History: None Reported Past Drug Use History: None Reported - Past Family History Sister(s) Family Medical History: Diabetes Mellitus, Hypertension, Myocardial Infarction ( [place]), Vascular Disorder Additional Family Medical History / Comment(s): post procedure of five stents Mother Family Medical History: CVA/TIA, Diabetes Mellitus, Myocardial Infarction ([place]) Additional Family Medical History / Comment(s): TIA's, PVD. Mother at age 65yrs. Father Family Medical History: Dementia, Diabetes Mellitus, Hypertension Additional Family Medical History / Comment(s): Father at age 72 yrs. Brother(s) Family Medical History: Cancer ( 6 eeks old of leukemia) Medications and Allergies Home Medications Medication Instructions Recorded Confirmed Type Loratadine [Claritin] 10 mg PO DAILY 01/05/15 09/25/17 History Aspirin 81 mg PO DAILY 04/16/15 09/25/17 History Atorvastatin [Lipitor] 80 mg PO HS 10/14/15 09/25/17 History Insulin Glulisine [Apidra] 15 unit SQ TID 11/05/15 09/25/17 History Insulin Glargine [Lantus] 50 unit SQ HS 01/22/17 09/25/17 History Metoprolol Tartrate [Lopressor] 75 mg PO BID #60 tablet 01/24/17 09/25/17 Rx Furosemide [Lasix] 40 mg PO BID 08/15/17 09/25/17 History amLODIPine [Norvasc] 5 mg PO BID 08/15/17 09/25/17 History hydrALAZINE HCL [Apresoline] 50 mg PO BID 08/15/17 09/25/17 History Fluticasone Propionate [Flonase 2 spray EA NOSTRIL DAILY 09/20/17 09/25/17 History Allergy Relief] Lisinopril [Zestril] 20 mg PO BID 09/20/17 09/25/17 History Ranitidine HCl 150 mg PO BID 09/20/17 09/25/17 History Acetaminophen Tab [Tylenol] 650 mg PO Q6HR PRN tab 09/25/17 09/25/17 Rx Allergies Allergy/AdvReac Type Severity Reaction Status Date / Time cephalexin monohydrate Allergy Rash/Hives Verified 09/25/17 21:52 [From Keflex] ciprofloxacin [From Cipro] Allergy Swelling Verified 09/25/17 21:52 ciprofloxacin HCl Allergy Swelling Verified 09/25/17 21:52 [From Cipro] codeine Allergy Unknown Verified 09/25/17 21:52 latex Allergy Itching Verified 09/25/17 21:52 sulfamethoxazole Allergy Itching Verified 09/25/17 21:52 [From Bactrim] trimethoprim [From Bactrim] Allergy Itching Verified 09/25/17 21:52 adhesive tape AdvReac Itching Verified 09/25/17 21:52 Physical Exam Vitals: Vital Signs Temp Pulse Pulse Resp BP BP Pulse Ox 09/26/17 08:00 79 16 09/26/17 07:00 98.5 F 79 16 141/64 94 L 09/26/17 06:00 160/75 09/26/17 02:12 98.6 F 87 18 196/77 92 L 09/26/17 00:29 85 20 175/88 97 09/25/17 23:07 82 20 173/77 95 09/25/17 22:32 22 09/25/17 21:41 98.5 F 85 20 182/77 100 Intake and Output 09/25/17 09/26/17 09/26/17 22:59 06:59 14:59 Intake Total 300 480 Output Total 500 Balance 300 -20 Intake: Oral 300 480 Output: Urine 500 Other: Voiding Method Toilet Toilet # Voids 2 Weight 117.934 kg 125.5 kg 125.5 kg Patient Weight 09/27/17 06:59 Weight 125.5 kg Blood pressure 141/64 heart rate 79 afebrile GENERAL: This is a 62-year-old female in no apparent distress at the time of my examination. Morbidly obese. HEENT: Head is atraumatic, normocephalic. Pupils are equal, round. Sclerae anicteric. Conjunctivae are clear. Mucous membranes of the mouth are moist. Neck is supple. There is no jugular venous distention. No carotid bruit is heard. LUNGS: Bibasilar rales, no wheezes or rhonchi. No chest wall tenderness is noted on palpation or with deep breathing. HEART: Regular rate and rhythm with systolic ejection murmur at the base, no rubs or gallops. S1 and S2 heard. ABDOMEN: Soft, nontender. Bowel sounds are heard. No organomegaly noted. EXTREMITIES: 2+ peripheral pulses with trace evidence of peripheral edema, nonpitting and no calf tenderness noted. NEUROLOGIC: Patient is awake, alert and oriented x3. Results 09/25/17 22:06 09/27/17 07:55 Cardiac Enzymes 09/25/17 09/25/17 09/26/17 Range/Units 22:06 22:06 06:51 AST 19 (14-36) U/L CK-MB (CK-2) 1.9 2.2 (0.0-2.4) ng/mL Troponin I 0.030 0.261 H* (0.000-0.034) ng/mL 09/26/17 Range/Units 11:32 AST (14-36) U/L CK-MB (CK-2) 2.0 (0.0-2.4) ng/mL Troponin I 0.241 H* (0.000-0.034) ng/mL Coagulation 09/25/17 Range/Units 22:06 PT 10.1 (9.0-12.0) sec APTT 25.1 (22.0-30.0) sec CBC 09/25/17 Range/Units 22:06 WBC 10.6 (3.8-10.6) k/uL RBC 2.65 L (3.80-5.40) m/uL Hgb 7.5 L (11.4-16.0) gm/dL Hct 23.3 L (34.0-46.0) % Plt Count 278 (150-450) k/uL Comprehensive Metabolic Panel 09/25/17 Range/Units 22:06 Sodium 138 (137-145) mmol/L Potassium 5.1 (3.5-5.1) mmol/L Chloride 105 (98-107) mmol/L Carbon Dioxide 24 (22-30) mmol/L BUN 47 H (7-17) mg/dL Creatinine 1.50 H (0.52-1.04) mg/dL Glucose 205 H (74-99) mg/dL Calcium 9.1 (8.4-10.2) mg/dL AST 19 (14-36) U/L ALT 36 (9-52) U/L Alkaline Phosphatase 85 (38-126) U/L Total Protein 6.1 L (6.3-8.2) g/dL Albumin 3.3 L (3.5-5.0) g/dL Current Medications Generic Name Dose Route Start Last Admin Trade Name Freq PRN Reason Stop Dose Admin Acetaminophen 650 mg 09/26/17 06:08 Tylenol Tab PO Q6HR PRN Mild Pain or Fever > 100.5 Amlodipine Besylate 5 mg 09/26/17 09:00 09/26/17 08:25 Norvasc PO 5 mg BID ELISABETH Administration Aspirin 81 mg 09/26/17 09:00 09/26/17 08:25 Aspirin PO 81 mg DAILY ELISABETH Administration Atorvastatin Calcium 80 mg 09/26/17 21:00 Lipitor PO HS [facility] Famotidine 20 mg 09/26/17 09:00 09/26/17 08:24 Pepcid PO 20 mg BID ELISABETH Administration Fluticasone Propionate 2 spray 09/26/17 09:00 09/26/17 08:26 Flonase Nasal [place] EA NOSTRIL 2 spray DAILY ELISABETH Administration Furosemide 40 mg 09/27/17 09:00 Lasix IV DAILY [facility] Hydralazine HCl 10 mg 09/26/17 06:05 09/26/17 06:21 Apresoline IVP 10 mg Q6HR PRN Administration systolic over 160 Hydralazine HCl 50 mg 09/26/17 09:00 09/26/17 08:25 Apresoline PO 50 mg BID ELISABETH Administration Ferric Sodium Gluconate 125 mg 110 mls @ 100 mls/hr 09/26/17 09:00 09/26/17 09:13 / Sodium Chloride IVPB 100 mls/hr DAILY ELISABETH Administration Insulin Aspart 15 unit 09/26/17 07:30 09/26/17 12:37 Novolog SQ 15 unit AC-TID ELISABETH Administration Insulin Detemir 50 unit 09/26/17 21:00 Levemir SQ HS [facility] Lisinopril 20 mg 09/26/17 09:00 09/26/17 08:26 Zestril PO 20 mg BID ELISABETH Administration Metoprolol Tartrate 75 mg 09/26/17 09:00 09/26/17 08:24 Lopressor PO 75 mg BID ELISABETH Administration Zinc Acetate/Diphenhydramine 1 applic 09/26/17 08:31 Benadryl Cream TOPICAL BID PRN Allergy Symptoms Intake and Output 09/25/17 09/26/17 09/26/17 22:59 06:59 14:59 Intake Total 300 480 Output Total 500 Balance 300 -20 Intake: Oral 300 480 Output: Urine 500 Other: Voiding Method Toilet Toilet # Voids 2 Weight 117.934 kg 125.5 kg 125.5 kg Patient Weight 09/27/17 06:59 Weight 125.5 kg 09/25/17 22:06 09/25/17 22:06 Assessment and Plan Assessment: ASSESSMENT 1. Acute on chronic diastolic heart failure with preserved LV function ejection fraction 55-60% on echo performed 09/21/17 2. Normocytic normochromic anemia of unknown origin 3. Elevated troponins of unclear significance be secondary to anemia. Patient is not appropriate for any sort of cardiac procedures at this time secondary to anemia. Optimize medical therapy 4. Acute on chronic kidney disease, stage 3B 5. Hypertension 6. Known history of coronary artery disease with prior PCI of the RCA 7. Diabetes mellitus 8. Sleep apnea 9. Morbid obesity PLAN Strict intake and output as well as daily weights using the same scale the same time every day. Lasix 40 mg IV daily. Check BMP in the morning. Elevated troponins are not indicative of an acute coronary event and are of unclear significance, may be secondary to anemia. However she is medicated for any sort of procedure at this time until question of anemia source is determined and corrected. Thank you kindly for this consultation further recommendations will be based upon clinical course. The above impression and plan of care have been discussed and directed by the signing physician. Lizzeth Fisher, nurse practitioner, acting as scribe for signing physician.
[2017-09-26 16:56] LABS: Glucose,Whole Blood 142 mg/dL (75-99)
[2017-09-26 20:09] LABS: Glucose,Whole Blood 206 mg/dL (75-99)
--- NOTE | 2017-09-26 20:47 | P.CONS ---
History of Present Illness - Reason for Consult Consult date: 09/26/17 anemia Requesting physician: Demetrio Flaherty - Chief Complaint V, SOB - History of Present Illness Mrs. Beach is a very pleasant 62-year-old female who denies a history of anemia, on chart review patient has progressive anemia for the last 3 years. Patient states just being discharged from the hospital yesterday after being treated for weakness and congestive heart failure. Patient states on discharge she drove herself home, within a few hours she was experiencing vomiting, weakness and shortness of breath. Patient denies any recent changes in appetite, unintentional weight loss, she has been feeling progressively, denies any gross bleeding, no black or bloody stools, hematuria, easy bruising, no new or unusual pain. Patient had colonoscopy yesterday, she has a history of type 2 diabetes mellitus and venous stasis ulcers on the BLE. Review of Systems 10 point review of systems is as stated in HPI Past Medical History Past Medical History: Coronary Artery Disease (CAD), Heart Failure, Diabetes Mellitus, Hyperlipidemia, Hypertension, Myocardial Infarction ([place]) Additional Past Medical History / Comment(s): edema, seasonal allergies, Diabetic ulcer-SEES DR ZELAYA FOR WOUND CARE, anemia, neuropathy, CKD Last Myocardial Infarction Date:: 01/10/15 History of Any Multi-Drug Resistant Organisms: None Reported Past Surgical History: Heart Catheterization With Stent Additional Past Surgical History / Comment(s): PT HAD STENT TO DISTAL RCA IN DECEMBER 2014, carpal tunnel bilateral hands, Eye surgery to cauterize bleeding November, Past Anesthesia/Blood Transfusion Reactions: Family History of Problems w/ Anesthesia, Motion Sickness Additional Past Anesthesia/Blood Transfusion Reaction / Comm: states mother had difficulty coming out of anesthesia Date of Last Stent Placement:: 12/30 Past Psychological History: Anxiety Additional Psychological History / Comment(s): Pt states she lives in her home with her adult neice and nephew. She is independent. She uses no assistive device. She drives. Smoking Status: Never smoker Past Alcohol Use History: None Reported Past Drug Use History: None Reported - Past Family History Sister(s) Family Medical History: Diabetes Mellitus, Hypertension, Myocardial Infarction ( [place]), Vascular Disorder Additional Family Medical History / Comment(s): post procedure of five stents Mother Family Medical History: CVA/TIA, Diabetes Mellitus, Myocardial Infarction ([place]) Additional Family Medical History / Comment(s): TIA's, PVD. Mother at age 65yrs. Father Family Medical History: Dementia, Diabetes Mellitus, Hypertension Additional Family Medical History / Comment(s): Father at age 72 yrs. Brother(s) Family Medical History: Cancer ( 6 eeks old of leukemia) Medications and Allergies Home Medications Medication Instructions Recorded Confirmed Type Loratadine [Claritin] 10 mg PO DAILY 01/05/15 09/25/17 History Aspirin 81 mg PO DAILY 04/16/15 09/25/17 History Atorvastatin [Lipitor] 80 mg PO HS 10/14/15 09/25/17 History Insulin Glulisine [Apidra] 15 unit SQ TID 11/05/15 09/25/17 History Insulin Glargine [Lantus] 50 unit SQ HS 01/22/17 09/25/17 History Metoprolol Tartrate [Lopressor] 75 mg PO BID #60 tablet 01/24/17 09/25/17 Rx Furosemide [Lasix] 40 mg PO BID 08/15/17 09/25/17 History amLODIPine [Norvasc] 5 mg PO BID 08/15/17 09/25/17 History hydrALAZINE HCL [Apresoline] 50 mg PO BID 08/15/17 09/25/17 History Fluticasone Propionate [Flonase 2 spray EA NOSTRIL DAILY 09/20/17 09/25/17 History Allergy Relief] Lisinopril [Zestril] 20 mg PO BID 09/20/17 09/25/17 History Ranitidine HCl 150 mg PO BID 09/20/17 09/25/17 History Acetaminophen Tab [Tylenol] 650 mg PO Q6HR PRN tab 09/25/17 09/25/17 Rx Allergies Allergy/AdvReac Type Severity Reaction Status Date / Time cephalexin monohydrate Allergy Rash/Hives Verified 09/25/17 21:52 [From Keflex] ciprofloxacin [From Cipro] Allergy Swelling Verified 09/25/17 21:52 ciprofloxacin HCl Allergy Swelling Verified 09/25/17 21:52 [From Cipro] codeine Allergy Unknown Verified 09/25/17 21:52 latex Allergy Itching Verified 09/25/17 21:52 sulfamethoxazole Allergy Itching Verified 09/25/17 21:52 [From Bactrim] trimethoprim [From Bactrim] Allergy Itching Verified 09/25/17 21:52 adhesive tape AdvReac Itching Verified 09/25/17 21:52 Physical Exam Vitals: Vital Signs Temp Pulse Pulse Resp BP BP Pulse Ox 09/26/17 15:25 75 16 09/26/17 15:00 98.2 F 75 16 164/72 94 L 09/26/17 08:00 79 16 09/26/17 07:00 98.5 F 79 16 141/64 94 L 09/26/17 06:00 160/75 09/26/17 02:12 98.6 F 87 18 196/77 92 L 09/26/17 00:29 85 20 175/88 97 09/25/17 23:07 82 20 173/77 95 09/25/17 22:32 22 09/25/17 21:41 98.5 F 85 20 182/77 100 Intake and Output 09/26/17 09/26/17 09/26/17 06:59 14:59 22:59 Intake Total 300 1380 Output Total 500 Balance 300 880 Intake: Intake, IV Titration 100 Amount Sodium Ferric Gluconat- 100 Sucrose 125 mg In Sodium Chloride 0.9% 100 ml @ 100 mls/hr IVPB DAILY [facility] Rx#:[id number] Oral 300 1280 Output: Urine 500 Other: Voiding Method Toilet Toilet Toilet # Voids 2 Weight 125.5 kg 125.5 kg 125.5 kg Patient Weight 09/27/17 06:59 Weight 125.5 kg - Constitutional General appearance: cooperative, no acute distress, obese - EENT Eyes: anicteric sclerae, EOMI, normal appearance ENT: normal oropharynx - Neck Neck: no lymphadenopathy - Respiratory Respiratory: bilateral: CTA - Cardiovascular Heart sounds: normal: S1, S2 Abnormal Heart Sounds: systolic murmur leg Peripheral Edema: bilateral: Trace - Gastrointestinal General gastrointestinal: no absent bowel sounds, no decreased bowel sounds, no distended, no hepatomegaly, no hyperactive bowel sounds, normal bowel sounds, no organomegaly, no rigid, no scaphoid, soft, no splenomegaly, no tenderness, no umbilical hernia, no ventral hernia - Integumentary Integumentary: normal - Neurologic Neurologic: CNII-XII intact - Musculoskeletal Musculoskeletal: strength equal bilaterally - Psychiatric Psychiatric: A&O x's 3, appropriate affect, intact judgment & insight Results CBC & Chem 7: 09/25/17 22:06 09/25/17 22:06 Labs: Abnormal Lab Results - Last 24 Hours (Table) 09/25/17 09/25/17 09/25/17 Range/Units 22:06 22:06 22:06 RBC 2.65 L (3.80-5.40) m/uL Hgb 7.5 L (11.4-16.0) gm/dL Hct 23.3 L (34.0-46.0) % Neutrophils # 9.1 H (1.3-7.7) k/uL Lymphocytes # 0.7 L (1.0-4.8) k/uL BUN 47 H (7-17) mg/dL Creatinine 1.50 H (0.52-1.04) mg/dL Glucose 205 H (74-99) mg/dL POC Glucose (mg/dL) (75-99) mg/dL Total Creatine Kinase 212 H (30-135) U/L Troponin I (0.000-0.034) ng/mL Total Protein 6.1 L (6.3-8.2) g/dL Albumin 3.3 L (3.5-5.0) g/dL 09/26/17 09/26/17 09/26/17 Range/Units 01:52 06:51 07:36 RBC (3.80-5.40) m/uL Hgb (11.4-16.0) gm/dL Hct (34.0-46.0) % Neutrophils # (1.3-7.7) k/uL Lymphocytes # (1.0-4.8) k/uL BUN (7-17) mg/dL Creatinine (0.52-1.04) mg/dL Glucose (74-99) mg/dL POC Glucose (mg/dL) 221 H 163 H (75-99) mg/dL Total Creatine Kinase (30-135) U/L Troponin I 0.261 H* (0.000-0.034) ng/mL Total Protein (6.3-8.2) g/dL Albumin (3.5-5.0) g/dL 09/26/17 09/26/17 09/26/17 Range/Units 11:14 11:32 16:53 RBC (3.80-5.40) m/uL Hgb (11.4-16.0) gm/dL Hct (34.0-46.0) % Neutrophils # (1.3-7.7) k/uL Lymphocytes # (1.0-4.8) k/uL BUN (7-17) mg/dL Creatinine (0.52-1.04) mg/dL Glucose (74-99) mg/dL POC Glucose (mg/dL) 289 H 142 H (75-99) mg/dL Total Creatine Kinase (30-135) U/L Troponin I 0.241 H* (0.000-0.034) ng/mL Total Protein (6.3-8.2) g/dL Albumin (3.5-5.0) g/dL 09/26/17 Range/Units 20:07 RBC (3.80-5.40) m/uL Hgb (11.4-16.0) gm/dL Hct (34.0-46.0) % Neutrophils # (1.3-7.7) k/uL Lymphocytes # (1.0-4.8) k/uL BUN (7-17) mg/dL Creatinine (0.52-1.04) mg/dL Glucose (74-99) mg/dL POC Glucose (mg/dL) 206 H (75-99) mg/dL Total Creatine Kinase (30-135) U/L Troponin I (0.000-0.034) ng/mL Total Protein (6.3-8.2) g/dL Albumin (3.5-5.0) g/dL CT scan - chest: report reviewed Assessment and Plan (1) Normocytic normochromic anemia Narrative/Plan: Patient hemoglobin overall stable, no transfusions recommended at this time. Further anemia workup has been ordered Iron studies were done, patient has been supplemented Further recommendations to follow Current Visit: Yes Status: Acute Priority: Medium Code(s): D64.9 - ANEMIA , UNSPECIFIED SNOMED Code(s): 86411957 (2) Low iron stores Current Visit: Yes Status: Acute Priority: Medium Code(s): R79.0 - ABNORMAL LEVEL OF BLOOD MINER[place] SNOMED Code(s): 161236615 (3) Chronic kidney disease Current Visit: Yes Status: Chronic Priority: Medium Code(s): N18.9 - CHRONIC KIDNEY DISEASE, UNSPECIFIED SNOMED Code(s): 584526742
[2017-09-26] MEDS ORDERED: INSULIN DETEMIR 100 UNIT/ML 10 ML VIAL SQ SCH (21:00)
[2017-09-26] MEDS ORDERED: ATORVASTATIN 80 MG TAB PO SCH (21:00)
[2017-09-27 07:22] LABS: Glucose,Whole Blood 273 mg/dL (75-99)
[2017-09-27] MEDS: INSULIN ASPART 100 UNIT/ML 1 ML 10 ML VIAL SQ SCH ×2 (07:27→12:33)
[2017-09-27] MEDS: LISINOPRIL 20 MG TAB PO SCH (07:29)
[2017-09-27] MEDS: hydrALAZINE HCL 50 MG TAB PO SCH (07:29)
[2017-09-27] MEDS: METOPROLOL TARTRATE 25 MG TAB PO SCH (07:29)
[2017-09-27] MEDS: ASPIRIN 81 MG PO SCH (07:29)
[2017-09-27] MEDS: amLODIPine 5 MG TAB PO SCH (07:30)
[2017-09-27] MEDS: FLUTICASONE 50MCG/SPRAY NASAL 16GM EA NOSTRIL SCH (07:30)
[2017-09-27 08:32] LABS: Reticulocyte % 4.8 % (0.5-2.0)
[2017-09-27 08:33] LABS: Calcium 9.2 mg/dL (8.4-10.2)
[2017-09-27] MEDS: SODIUM FERRIC GLUCONAT-SUCROSE 125 MG in SODIUM CHLORIDE 0.9% 100 ML IVPB SCH (08:54)
[2017-09-27] MEDS ORDERED: FAMOTIDINE 20 MG TAB PO SCH (09:00)
[2017-09-27] MEDS ORDERED: FUROSEMIDE 10 MG/ML 4 ML VIAL IV SCH (09:00)
[2017-09-27 12:16] LABS: Glucose,Whole Blood 319 mg/dL (75-99)
--- NOTE | 2017-09-27 13:42 | P.PN ---
Subjective Progress Note Date: 09/27/17 Mrs. Beach is a pleasant 62-year-old female with past medical history significant for hypertension, dyslipidemia, diabetes mellitus, coronary artery disease with PCI of distal RCA and chronic kidney disease. She follows with Dr. Núñez in the office. She presented to the hospital hours after being discharged last night for complaints of worsening shortness of breath. Last admission she was found to be anemic with positive occult blood in the stool and underwent a EGD/colonoscopy with Dr. Cm. This was found to be unremarkable with no active bleeding. She was also being treated for exacerbation of heart failure with b/l lower extremity edema. She states this had greatly improved. Emergency has initiated the patient on Lasix 40 mg IV every 8 hours. EKG on arrival reveals sinus mechanism with no acute ST or T-wave abnormalities. Chest xray reveals evidence of heart failure with small pleural effusion and pulmonary edema. When compared to previous it is noted to be slightly improved. Laboratory data reviewed, hgb 7.5, platelets 278, potassium 5.1, magnesium 1.8 , creatinine 1.5, BUN 47, proBNP 951, troponin 0.03, 0.261 and 0.241. Current home cardiac medications include hydralazine 50 mg twice a day, amlodipine 5 mg twice a day, Lopressor 75 mg twice a day, lisinopril 20 mg twice a day, Lasix 40 mg twice a day, atorvastatin 80 mg daily and aspirin 81 mg daily. 09/27/2017 She is seen today sitting up eating lunch in no acute distress. She is not requiring oxygen. She states she has been breathing much easier and is attempting to increase activity. She gets up to the bathroom and walks around the room with minimal shortness of breath still evident with exertion. She continues to deny chest pain, palpitations, dizziness, PND or orthopnea. Objective - Vital Signs Vital signs: Vital Signs Temp 98.7 F 09/27/17 07:00 Pulse 69 09/27/17 07:08 Resp 16 09/27/17 07:08 BP 160/61 09/27/17 07:00 Pulse Ox 95 09/27/17 07:00 Intake & Output 09/26/17 09/27/17 09/27/17 18:59 06:59 18:59 Intake Total 1380 890 480 Output Total 500 Balance 880 890 480 Weight 125.5 kg 126.5 kg 126.5 kg Intake: Intake, IV Titration 100 Amount Sodium Ferric Gluconat- 100 Sucrose 125 mg In Sodium Chloride 0.9% 100 ml @ 100 mls/hr IVPB DAILY [facility] Rx#:[id number] Oral 1280 890 480 Output: Urine 500 Other: Voiding Method Toilet Toilet Toilet # Voids 2 - Exam GENERAL: Well-appearing, well-nourished and in no acute distress. NECK: Supple without JVD or thyromegaly. LUNGS: Breath sounds clear to auscultation bilaterally. Respiration equal and unlabored. No wheezes, rales or rhonchi. HEART: Regular rate and rhythm with systolic ejection murmur at the base, no rubs or gallops. S1 and S2 heard. EXTREMITIES: Normal range of motion, trace b/l lower extremity edema, non- pitting. No clubbing or cyanosis. Peripheral pulses intact and strong. - Labs CBC & Chem 7: 09/25/17 22:06 09/27/17 07:55 Labs: Abnormal Lab Results - Last 24 Hours (Table) 09/26/17 09/26/17 09/27/17 Range/Units 16:53 20:07 07:16 Retic Count (0.5-2.0) % BUN (7-17) mg/dL Creatinine (0.52-1.04) mg/dL Glucose (74-99) mg/dL POC Glucose (mg/dL) 142 H 206 H 273 H (75-99) mg/dL 09/27/17 09/27/17 09/27/17 Range/Units 07:55 07:55 12:07 Retic Count 4.8 H (0.5-2.0) % BUN 53 H (7-17) mg/dL Creatinine 1.92 H (0.52-1.04) mg/dL Glucose 231 H (74-99) mg/dL POC Glucose (mg/dL) 319 H (75-99) mg/dL Assessment and Plan Assessment: ASSESSMENT 1. Acute on chronic diastolic heart failure with preserved LV function ejection fraction 55-60% on echo performed 09/21/17 2. Normocytic normochromic anemia of unknown origin 3. Elevated troponins of unclear significance be secondary to anemia. Patient is not appropriate for any sort of cardiac procedures at this time secondary to anemia. Optimize medical therapy 4. Acute on chronic kidney disease, stage 3B 5. Hypertension 6. Known history of coronary artery disease with prior PCI of the RCA 7. Diabetes mellitus 8. Sleep apnea 9. Morbid obesity PLAN Transition to lasix 40 mg PO BID starting tonight. Her breathing is much better as well as lungs. Weight has not changed but clinically she looks better. Continue with medical management as well as hematology. We will continue to see her on an as needed basis. Follow-up with Dr. Núñez 2-3 weeks after discharge. The above impression and plan of care have been discussed and directed by the signing physician. Lizzeth Fisher, nurse practitioner, acting as scribe for signing physician.
[2017-09-27 14:57] VITALS: BP 155/70; PULSE 73; RESP 17; TEMP 98.4
[2017-09-27] MEDS ORDERED: FUROSEMIDE 40 MG TAB PO SCH (16:00)
[2017-10-01 12:05] LABS: Albumin 3.25 g/dL (3.80-4.90); Gamma Globulin 0.77 g/dL (0.70-1.50)
--- NOTE | 2017-11-04 17:52 | DS ---
DISCHARGE SUMMARY DATE OF ADMISSION: 09/25/2017. DATE OF DISCHARGE: 09/27/2017. HOME MEDICATIONS: Claritin 10 mg daily, aspirin 81 mg daily, Lipitor 80 mg daily, Apidra 15 units subcu t.i.d., Lantus 50 units q.h.s., Lopressor 75 b.i.d., hydralazine 50 b.i.d., Norvasc 5 mg b.i.d., Lasix 40 b.i.d., Ranitidine 150 b.i.d., Zestril 20 b.i.d., fluticasone nasal spray daily. Acetaminophen every 6 hours p.r.n. CONDITION: Stable. PROGNOSIS: Guarded. Ambulate as tolerated. DIAGNOSES: 1. Congestive heart failure exacerbation. 2. Chronic obstructive pulmonary disease exacerbation. 3. Acute on chronic anemia. 4. Coronary artery disease. 5. Normocytic normochromic anemia with low iron stores. 6. Chronic kidney disease. HOSPITAL COURSE OF EVENTS: Patient was admitted for COPD, CHF. Stabilized from medical standpoint, was seen by the check totaler as well as Dr. Greco for Hematology for severe anemia. She is started on IV Lasix. Given appropriate workup. Ruled out by Cardiology for any significant cardiac event and was improved. Treated for COPD also, diabetes mellitus 2, hypertension, dyslipidemia well controlled. Transitioned to oral Lasix and told to follow up with Cardiology in 2 weeks post discharge. She had diastolic CHF acute on chronic, elevated troponin, possibly due to anemia, stage IIIB chronic kidney disease, coronary artery disease, obstructive sleep apnea, diabetes mellitus, hypertension, morbid obesity. MMODL / IJN: [id number] /
== END 2017-09-27 18:05 | disposition home or self-care (01) ==
LOC: EC 21:30 → 5MS5E 23:32
PROVIDERS: ADMIT Family Medicine; ATTEND Family Medicine
DX: E11.22 Type 2 diabetes mellitus with diabetic chronic kidney disease (principal); I50.33 Acute on chronic diastolic (congestive) heart failure; I13.0 Hypertensive heart and chronic kidney disease with heart failure and stage 1 through stage 4 chronic kidney disease, or unspecified chronic kidney disease; D64.9 Anemia, unspecified; N18.3 Chronic kidney disease, stage 3 (moderate); I25.10 Atherosclerotic heart disease of native coronary artery without angina pectoris; G47.30 Sleep apnea, unspecified; E66.01 Morbid (severe) obesity due to excess calories; I25.2 Old myocardial infarction; J30.2 Other seasonal allergic rhinitis; E11.622 Type 2 diabetes mellitus with other skin ulcer; L97.909 Non-pressure chronic ulcer of unspecified part of unspecified lower leg with unspecified severity; E11.40 Type 2 diabetes mellitus with diabetic neuropathy, unspecified; F41.9 Anxiety disorder, unspecified; E78.5 Hyperlipidemia, unspecified; Z68.41 Body mass index [BMI] 40.0-44.9, adult; Z79.82 Long term (current) use of aspirin; Z79.4 Long term (current) use of insulin; Z79.899 Other long term (current) drug therapy; Z88.5 Allergy status to narcotic agent; Z88.2 Allergy status to sulfonamides; Z88.1 Allergy status to other antibiotic agents; Z91.040 Latex allergy status; Z95.5 Presence of coronary angioplasty implant and graft; Z83.3 Family history of diabetes mellitus; Z82.49 Family history of ischemic heart disease and other diseases of the circulatory system; Z79.51 Long term (current) use of inhaled steroids
CPT/HCPCS: 96376 ×2; 96365; 96366; 96375; 99285; 36415; 93005; 83921; 83880; 80053; 80048; 82550; 82553 ×2; 83735; 84484 ×2; 85025; 85610; 85045; 85730; 84165; 82668; 86334; 83883; 71046; 71250; G0378 ×3; J0360; J1940 ×2; J2916 ×2

== ENCOUNTER 2017-09-30 00:57 | Inpatient (IN) | payer OTHER ==
[2017-09-30 01:38] LABS: Glucose,Whole Blood 492 mg/dL (75-99)
--- NOTE | 2017-09-30 01:46 | ED ---
SOB HPI - General Chief Complaint: Shortness of Breath Stated Complaint: CHERYL Time Seen by Provider: 09/30/17 01:08 Source: patient, EMS Mode of arrival: EMS Limitations: no limitations - History of Present Illness Initial Comments: This patient is 62-year-old woman with history of anemia and CHF, who presents because she is feeling more short of breath than when she had been discharged from the hospital a few days ago. She had been in the hospital for the same reason, dyspnea related to the anemia and CHF. She states that she has only had worsening in the days since she had gone home. The patient states that the dyspnea gets worse if she lies flat or if she does any type of walking around the house. She also believes that she has had increased swelling of her legs. She is not having chest pain. She has not noted fever or chills. She occasionally has cough with clear sputum. No change in urination. No change in bowel movements MD Complaint: shortness of breath Onset/Timin -: week(s) Improves With: oxygen Worsens With: lying flat, exertion Known History Of: congestive heart failure Associated Symptoms: lower abdominal swelling Treatments Prior to Arrival: oxygen - Related Data Home Medications Medication Instructions Recorded Confirmed Loratadine [Claritin] 10 mg PO DAILY 01/05/15 09/30/17 Aspirin 81 mg PO DAILY 04/16/15 09/30/17 Atorvastatin [Lipitor] 80 mg PO HS 10/14/15 09/30/17 Insulin Glulisine [Apidra] 15 unit SQ TID 11/05/15 09/30/17 Insulin Glargine [Lantus] 50 unit SQ HS 01/22/17 09/30/17 Furosemide [Lasix] 40 mg PO BID 08/15/17 09/30/17 amLODIPine [Norvasc] 5 mg PO BID 08/15/17 09/30/17 hydrALAZINE HCL [Apresoline] 50 mg PO BID 08/15/17 09/30/17 Fluticasone Propionate [Flonase 2 spray EA NOSTRIL DAILY 09/20/17 09/30/17 Allergy Relief] Lisinopril [Zestril] 20 mg PO BID 09/20/17 09/30/17 Ranitidine HCl 150 mg PO BID 09/20/17 09/30/17 Previous Rx's Medication Instructions Recorded Metoprolol Tartrate [Lopressor] 75 mg PO BID #60 tablet 01/24/17 Acetaminophen Tab [Tylenol] 650 mg PO Q6HR PRN tab 09/25/17 Allergies Allergy/AdvReac Type Severity Reaction Status Date / Time cephalexin monohydrate Allergy Rash/Hives Verified 09/30/17 01:12 [From Keflex] ciprofloxacin [From Cipro] Allergy Swelling Verified 09/30/17 01:12 ciprofloxacin HCl Allergy Swelling Verified 09/30/17 01:12 [From Cipro] codeine Allergy Unknown Verified 09/30/17 01:12 latex Allergy Itching Verified 09/30/17 01:12 sulfamethoxazole Allergy Itching Verified 09/30/17 01:12 [From Bactrim] trimethoprim [From Bactrim] Allergy Itching Verified 09/30/17 01:12 adhesive tape AdvReac Itching Verified 09/30/17 01:12 Review of Systems ROS Statement: Those systems with pertinent positive or pertinent negative responses have been documented in the HPI. ROS Other: All systems not noted in ROS Statement are negative. Constitutional: Reports: weakness. Denies: fever, chills Respiratory: Reports: dyspnea. Denies: cough, wheezes, hemoptysis Cardiovascular: Reports: dyspnea on exertion, orthopnea, edema. Denies: chest pain, palpitations, syncope Gastrointestinal: Denies: abdominal pain, vomiting, diarrhea, melena, hematochezia Genitourinary: Denies: dysuria Musculoskeletal: Denies: back pain Skin: Denies: rash Neurological: Reports: weakness (Generalized). Denies: headache, numbness Psychiatric: Reports: anxiety Past Medical History Past Medical History: Coronary Artery Disease (CAD), Heart Failure, Diabetes Mellitus, Hyperlipidemia, Hypertension, Myocardial Infarction ([place]) Additional Past Medical History / Comment(s): edema, seasonal allergies, Diabetic ulcer-SEES DR ZELAYA FOR WOUND CARE, anemia, neuropathy, CKD Last Myocardial Infarction Date:: 01/10/15 History of Any Multi-Drug Resistant Organisms: None Reported Past Surgical History: Heart Catheterization With Stent Additional Past Surgical History / Comment(s): PT HAD STENT TO DISTAL RCA IN DECEMBER 2014, carpal tunnel bilateral hands, Eye surgery to cauterize bleeding November, Past Anesthesia/Blood Transfusion Reactions: Family History of Problems w/ Anesthesia, Motion Sickness Additional Past Anesthesia/Blood Transfusion Reaction / Comment(s): states mother had difficulty coming out of anesthesia Date of Last Stent Placement:: 12/30 Past Psychological History: Anxiety Smoking Status: Never smoker Past Alcohol Use History: None Reported Past Drug Use History: None Reported - Past Family History Brother(s) Family Medical History: Cancer ( 6 eeks old of leukemia) Sister(s) Family Medical History: Diabetes Mellitus, Hypertension, Myocardial Infarction ( [place]), Vascular Disorder Additional Family Medical History / Comment(s): post procedure of five stents Mother Family Medical History: CVA/TIA, Diabetes Mellitus, Myocardial Infarction ([place]) Additional Family Medical History / Comment(s): TIA's, PVD. Mother at age 65yrs. Father Family Medical History: Dementia, Diabetes Mellitus, Hypertension Additional Family Medical History / Comment(s): Father at age 72 yrs. General Exam Limitations: no limitations General appearance: alert, in no apparent distress Head exam: Present: atraumatic, normocephalic, normal inspection Eye exam: Present: normal appearance. Absent: scleral icterus, conjunctival injection ENT exam: Present: normal oropharynx Neck exam: Present: normal inspection, full ROM Respiratory exam: Present: rales (Bilateral bases), other (Patient is able to hold a conversation without becoming dyspneic, speaking in multiple sentences at a time). Absent: respiratory distress, wheezes, rhonchi, stridor, accessory muscle use, decreased breath sounds, prolonged expiratory Cardiovascular Exam: Present: regular rate, normal rhythm, normal heart sounds. Absent: systolic murmur, diastolic murmur, rubs, gallop GI/Abdominal exam: Present: soft. Absent: distended, tenderness, guarding, rebound, mass Extremities exam: Present: normal inspection, normal capillary refill, pedal edema (Bilateral ankle edema). Absent: calf tenderness Back exam: Present: normal inspection. Absent: CVA tenderness (R), CVA tenderness (L) Neurological exam: Present: alert Skin exam: Present: warm, dry, intact, pallor. Absent: rash Course Vital Signs 09/30/17 09/30/17 09/30/17 01:06 01:58 02:15 Temperature 98 F Pulse Rate 80 78 68 Respiratory 24 28 H 22 Rate Blood Pressure 158/63 126/58 135/64 O2 Sat by Pulse 94 L 91 L 99 Oximetry 09/30/17 09/30/17 09/30/17 03:00 03:48 04:00 Temperature Pulse Rate 64 66 64 Respiratory 24 24 18 Rate Blood Pressure 142/58 135/58 140/56 O2 Sat by Pulse 98 97 98 Oximetry 09/30/17 09/30/17 05:04 05:55 Temperature 97.9 F Pulse Rate 73 69 Respiratory 22 22 Rate Blood Pressure 149/60 124/55 O2 Sat by Pulse 93 L 93 L Oximetry Medical Decision Making - Medical Decision Making patient has definite CHF on the x-ray and worsened BNP from her previous admission. In addition the d-dimer is positive, but she cannot have computed tomography scan with dye due to her renal function. Patient does receive a dose of Lovenox and will have VQ scan. She is started on diuretics here as well as nitrates. She did briefly have course of BiPAP and subsequently had improvement and wants try a coming off of the BiPAP mask. Patient also found to have hyperkalemia and she is given calcium gluconate, insulin, albuterol. Dextrose held as the patient's blood sugar quite elevated. Patient also received Kayexalate. She was observed with nasal cannula oxygen and does appear stable. Case discussed with Dr. Flaherty who will admit. - Lab Data Result diagrams: 09/30/17 01:40 09/30/17 01:40 Lab Results 09/30/17 09/30/17 09/30/17 Range/Units 01:28 01:40 01:40 WBC 15.0 H (3.8-10.6) k/uL RBC 2.66 L (3.80-5.40) m/uL Hgb 7.6 L (11.4-16.0) gm/dL Hct 24.7 L (34.0-46.0) % MCV 92.7 (80.0-100.0) fL MCH 28.7 (25.0-35.0) pg MCHC 30.9 L (31.0-37.0) g/dL RDW 14.5 (11.5-15.5) % Plt Count 305 (150-450) k/uL Neutrophils % 90 % Lymphocytes % 4 % Monocytes % 3 % Eosinophils % 1 % Basophils % 0 % Neutrophils # 13.5 H (1.3-7.7) k/uL Lymphocytes # 0.7 L (1.0-4.8) k/uL Monocytes # 0.4 (0-1.0) k/uL Eosinophils # 0.2 (0-0.7) k/uL Basophils # 0.0 (0-0.2) k/uL Hypochromasia Slight PT (9.0-12.0) sec INR (<1.2) APTT (22.0-30.0) sec D-Dimer (<0.60) mg/L FEU Sodium (137-145) mmol/L Potassium (3.5-5.1) mmol/L Chloride (98-107) mmol/L Carbon Dioxide (22-30) mmol/L Anion Gap mmol/L BUN (7-17) mg/dL Creatinine (0.52-1.04) mg/dL Est GFR (MDRD) Af Amer (>60 ml/min/1.73 sqM) Est GFR (MDRD) Non-Af (>60 ml/min/1.73 sqM) Glucose (74-99) mg/dL POC Glucose (mg/dL) 492 H (75-99) mg/dL POC Glu [employer] Support Manager ID [place], Sivakumar Calcium (8.4-10.2) mg/dL Magnesium (1.6-2.3) mg/dL Total Bilirubin (0.2-1.3) mg/dL AST (14-36) U/L ALT (9-52) U/L Alkaline Phosphatase (38-126) U/L Total Creatine Kinase 111 (30-135) U/L CK-MB (CK-2) 1.4 (0.0-2.4) ng/mL CK-MB (CK-2) Rel Index 1.3 Troponin I 0.039 H* (0.000-0.034) ng/mL NT-Pro-B Natriuret Pep pg/mL Total Protein (6.3-8.2) g/dL Albumin (3.5-5.0) g/dL 09/30/17 09/30/17 09/30/17 Range/Units 01:40 01:40 01:40 WBC (3.8-10.6) k/uL RBC (3.80-5.40) m/uL Hgb (11.4-16.0) gm/dL Hct (34.0-46.0) % MCV (80.0-100.0) fL MCH (25.0-35.0) pg MCHC (31.0-37.0) g/dL RDW (11.5-15.5) % Plt Count (150-450) k/uL Neutrophils % % Lymphocytes % % Monocytes % % Eosinophils % % Basophils % % Neutrophils # (1.3-7.7) k/uL Lymphocytes # (1.0-4.8) k/uL Monocytes # (0-1.0) k/uL Eosinophils # (0-0.7) k/uL Basophils # (0-0.2) k/uL Hypochromasia PT 10.2 (9.0-12.0) sec INR 1.0 (<1.2) APTT 20.8 L (22.0-30.0) sec D-Dimer 1.88 H (<0.60) mg/L FEU Sodium 138 (137-145) mmol/L Potassium 6.3 H* (3.5-5.1) mmol/L Chloride 106 (98-107) mmol/L Carbon Dioxide 23 (22-30) mmol/L Anion Gap 9 mmol/L BUN 62 H (7-17) mg/dL Creatinine 1.70 H (0.52-1.04) mg/dL Est GFR (MDRD) Af Amer 37 (>60 ml/min/1.73 sqM) Est GFR (MDRD) Non-Af 31 (>60 ml/min/1.73 sqM) Glucose 464 H* (74-99) mg/dL POC Glucose (mg/dL) (75-99) mg/dL POC Glu Integrated Logistics Support Manager ID Calcium 9.1 (8.4-10.2) mg/dL Magnesium 2.1 (1.6-2.3) mg/dL Total Bilirubin 0.2 (0.2-1.3) mg/dL AST 14 (14-36) U/L ALT 47 (9-52) U/L Alkaline Phosphatase 91 (38-126) U/L Total Creatine Kinase (30-135) U/L CK-MB (CK-2) (0.0-2.4) ng/mL CK-MB (CK-2) Rel Index Troponin I (0.000-0.034) ng/mL NT-Pro-B Natriuret Pep 2150 pg/mL Total Protein 6.1 L (6.3-8.2) g/dL Albumin 3.3 L (3.5-5.0) g/dL 09/30/17 Range/Units 04:55 WBC (3.8-10.6) k/uL RBC (3.80-5.40) m/uL Hgb (11.4-16.0) gm/dL Hct (34.0-46.0) % MCV (80.0-100.0) fL MCH (25.0-35.0) pg MCHC (31.0-37.0) g/dL RDW (11.5-15.5) % Plt Count (150-450) k/uL Neutrophils % % Lymphocytes % % Monocytes % % Eosinophils % % Basophils % % Neutrophils # (1.3-7.7) k/uL Lymphocytes # (1.0-4.8) k/uL Monocytes # (0-1.0) k/uL Eosinophils # (0-0.7) k/uL Basophils # (0-0.2) k/uL Hypochromasia PT (9.0-12.0) sec INR (<1.2) APTT (22.0-30.0) sec D-Dimer (<0.60) mg/L FEU Sodium (137-145) mmol/L Potassium (3.5-5.1) mmol/L Chloride (98-107) mmol/L Carbon Dioxide (22-30) mmol/L Anion Gap mmol/L BUN (7-17) mg/dL Creatinine (0.52-1.04) mg/dL Est GFR (MDRD) Af Amer (>60 ml/min/1.73 sqM) Est GFR (MDRD) Non-Af (>60 ml/min/1.73 sqM) Glucose (74-99) mg/dL POC Glucose (mg/dL) 445 H (75-99) mg/dL POC Glu Integrated Log[employer] Support Manager ID [email or web address] Calcium (8.4-10.2) mg/dL Magnesium (1.6-2.3) mg/dL Total Bilirubin (0.2-1.3) mg/dL AST (14-36) U/L ALT (9-52) U/L Alkaline Phosphatase (38-126) U/L Total Creatine Kinase (30-135) U/L CK-MB (CK-2) (0.0-2.4) ng/mL CK-MB (CK-2) Rel Index Troponin I (0.000-0.034) ng/mL NT-Pro-B Natriuret Pep pg/mL Total Protein (6.3-8.2) g/dL Albumin (3.5-5.0) g/dL - EKG Data -: EKG Interpreted by Me EKG shows normal: sinus rhythm, axis (Normal), intervals (Normal), QRS complexes (Normal), ST-T waves (Normal) Rate: normal (Rate approximate 73 bpm) Interpretation: normal EKG Critical Care Time Critical Care Time: Yes (40 minutes) Disposition Clinical Impression: Anemia, CHF exacerbation, Hyperglycemia, Hyperkalemia, Elevated d-dimer Disposition: ADMITTED IP TO THIS [facility] Condition: Poor
[2017-09-30] MEDS ORDERED: FUROSEMIDE 10 MG/ML 4 ML VIAL IV STA (01:49)
[2017-09-30] MEDS ORDERED: NITROGLYCERIN OINT 1 INCH/GM PACKET TOPICAL STA (01:49)
--- NOTE | 2017-09-30 01:55 | XR ---
EXAMINATION TYPE: XR chest 1V portable DATE OF EXAM: 09/30/2017 COMPARISON: 09/25/2017 HISTORY: Short of breath TECHNIQUE: Single frontal view of the chest is obtained. FINDINGS: Heart is enlarged. There is pulmonary interstitial and alveolar edema. There are chest peter ds. There is poor inspiration. IMPRESSION: Congestive heart failure. There is some pulmonary edema that is slightly worse than last exam.
[2017-09-30 02:06] LABS: Basophils % (A) 0 %; Eosinophils # (A) 0.2 k/uL (0-0.7); Eosinophils % (A) 1 %; HCT 24.7 % (34.0-46.0); HGB 7.6 gm/dL (11.4-16.0); Hypochromasia Slight; Lymphocytes # (A) 0.7 k/uL (1.0-4.8); Lymphocytes % (A) 4 %; MCH 28.7 pg (25.0-35.0); MCHC 30.9 g/dL (31.0-37.0); MCV 92.7 fL (80.0-100.0); Mean Platelet Volume 7.4; Monocytes # (A) 0.4 k/uL (0-1.0); Monocytes % (A) 3 %; Neutrophils # (A) 13.5 k/uL (1.3-7.7); Neutrophils % (A) 90 %; Platelet Count 305 k/uL (150-450); RBC 2.66 m/uL (3.80-5.40); RDW 14.5 % (11.5-15.5)
[2017-09-30 02:11] LABS: Albumin 3.3 g/dL (3.5-5.0); Calcium 9.1 mg/dL (8.4-10.2); Magnesium 2.1 mg/dL (1.6-2.3); Total Bilirubin 0.2 mg/dL (0.2-1.3); Total Protein 6.1 g/dL (6.3-8.2)
[2017-09-30 02:15] LABS: Potassium 6.3 mmol/L (3.5-5.1)
[2017-09-30 02:44] LABS: Creatine Kinase MB 1.4 ng/mL (0.0-2.4)
[2017-09-30 03:01] LABS: Troponin I 0.039 ng/mL (0.000-0.034)
[2017-09-30 03:06] LABS: D-Dimer 1.88 mg/L FEU (<0.60); Prothrombin Time 10.2 sec (9.0-12.0)
[2017-09-30 03:08] LABS: Partial Thromboplastin Time 20.8 sec (22.0-30.0)
[2017-09-30] MEDS ORDERED: INSULIN REGULAR 100 UNIT/ML VIAL IV STA (04:24)
[2017-09-30] MEDS ORDERED: CALCIUM GLUCONATE 1,000 MG in SODIUM CHLORIDE 0.9% 100 ML IVPB ONE (04:25)
[2017-09-30] MEDS ORDERED: SODIUM POLYSTYRENE SULFONATE 15 GM/60 ML BOTTLE PO STA (04:25)
[2017-09-30] MEDS ORDERED: ENOXAPARIN 120 MG/0.8 ML SYRINGE SQ STA (04:26)
[2017-09-30 05:01] LABS: Glucose,Whole Blood 445 mg/dL (75-99)
[2017-09-30 06:01] LABS: Glucose,Whole Blood 405 mg/dL (75-99)
[2017-09-30] MEDS: INSULIN ASPART 100 UNIT/ML 1 ML 10 ML VIAL SQ SCH ×6 (06:49→21:08)
[2017-09-30 06:50] LABS: Glucose,Whole Blood 380 mg/dL (75-99)
[2017-09-30 08:26] LABS: Creatine Kinase MB 1.4 ng/mL (0.0-2.4)
[2017-09-30] MEDS ORDERED: ACETAMINOPHEN TAB 325 MG TAB PO PRN (08:29)
[2017-09-30 08:32] LABS: Troponin I 0.047 ng/mL (0.000-0.034)
[2017-09-30] MEDS ORDERED: NITROGLYCERIN OINT 1 INCH/GM PACKET TOPICAL SCH (09:00)
--- NOTE | 2017-09-30 09:05 | NM ---
EXAMINATION TYPE: NM pul vent and perfuse DATE OF EXAM: 09/30/2017 COMPARISON: NONE HISTORY: Cough and difficulty breathing TECHNIQUE: Utilizing inhalation of 71.5 mCi Tc 99m DTPA aerosol and intravenous injection of 5.5 mCi of Tc 99m MAA, ventilation and perfusion images are acquired post injection in multiple projections. FINDINGS: There is patchy distribution of radiotracer in both the ventilation and perfusion views. There is no VQ mismatch. IMPRESSION: THIS EXAMINATION IS LOW PROBABILITY FOR PULMONARY EMBOLUS.
[2017-09-30] MEDS: amLODIPine 5 MG TAB PO SCH ×2 (11:31→20:55)
[2017-09-30] MEDS: ASPIRIN 81 MG PO SCH (11:31)
[2017-09-30] MEDS: hydrALAZINE HCL 50 MG TAB PO SCH ×2 (11:31→20:57)
[2017-09-30] MEDS: LISINOPRIL 20 MG TAB PO SCH ×2 (11:32→21:00)
[2017-09-30] MEDS: FAMOTIDINE 20 MG TAB PO SCH ×2 (11:32→20:56)
[2017-09-30] MEDS: METOPROLOL TARTRATE 25 MG TAB PO SCH ×2 (11:32→20:58)
[2017-09-30] MEDS: LORATADINE 10 MG TAB PO SCH (11:33)
[2017-09-30] MEDS: ISOSORBIDE MONONITRATE ER 30 MG TAB.ER.24H PO SCH (11:35)
[2017-09-30] MEDS: FLUTICASONE 50MCG/SPRAY NASAL 16GM EA NOSTRIL SCH (11:35)
--- NOTE | 2017-09-30 12:07 | P.NPCON ---
History of Present Illness - Reason for Consult Consult date: 09/30/17 acute renal failure - Chief Complaint Congestive heart failure and acute kidney injury - History of Present Illness This is a 62-year-old obese female seen in consultation because of acute kidney injury, chronic kidney disease and recurrent admission with the same problem. She was admitted on 09/25/2017 with shortness of breath CHF edema discharged 2 days ago on 09/27/2017. Discharge on Lasix 40 twice a day. She came back because of worsening shortness of breath. She denies any noncompliance, excessive salt intake. Denies any chest pain fever chills. Denies any dizziness or seizures syncope or sweating. No abdominal pain. Denies taking any nonsteroidals. She is known with coronary artery disease type 2 diabetes hyperlipidemia and hypertension past history of IA and cardiac catheterization coronary artery stent in the past. Past Medical History Past Medical History: Coronary Artery Disease (CAD), Heart Failure, Diabetes Mellitus, Hyperlipidemia, Hypertension, Myocardial Infarction (IA) Additional Past Medical History / Comment(s): edema, seasonal allergies, Diabetic ulcer-SEES DR ZELAYA FOR WOUND CARE, anemia, neuropathy, CKD Last Myocardial Infarction Date:: 01/10/15 History of Any Multi-Drug Resistant Organisms: None Reported Past Surgical History: Heart Catheterization With Stent Additional Past Surgical History / Comment(s): PT HAD STENT TO DISTAL RCA IN DECEMBER 2014, carpal tunnel bilateral hands, Eye surgery to cauterize bleeding November, Past Anesthesia/Blood Transfusion Reactions: Family History of Problems w/ Anesthesia, Motion Sickness Additional Past Anesthesia/Blood Transfusion Reaction / Comment(s): states mother had difficulty coming out of anesthesia Date of Last Stent Placement:: 12/30 Past Psychological History: Anxiety Smoking Status: Never smoker Past Alcohol Use History: None Reported Past Drug Use History: None Reported - Past Family History Brother(s) Family Medical History: Cancer ( 6 eeks old of leukemia) Sister(s) Family Medical History: Diabetes Mellitus, Hypertension, Myocardial Infarction ( IA), Vascular Disorder Additional Family Medical History / Comment(s): post procedure of five stents Mother Family Medical History: CVA/TIA, Diabetes Mellitus, Myocardial Infarction (IA) Additional Family Medical History / Comment(s): TIA's, PVD. Mother at age 65yrs. Father Family Medical History: Dementia, Diabetes Mellitus, Hypertension Additional Family Medical History / Comment(s): Father at age 72 yrs. Medications and Allergies Home Medications Medication Instructions Recorded Confirmed Type Loratadine [Claritin] 10 mg PO DAILY 01/05/15 09/30/17 History Aspirin 81 mg PO DAILY 04/16/15 09/30/17 History Atorvastatin [Lipitor] 80 mg PO HS 10/14/15 09/30/17 History Insulin Glulisine [Apidra] 15 unit SQ TID 11/05/15 09/30/17 History Insulin Glargine [Lantus] 50 unit SQ HS 01/22/17 09/30/17 History Metoprolol Tartrate [Lopressor] 75 mg PO BID #60 tablet 01/24/17 09/30/17 Rx Furosemide [Lasix] 40 mg PO BID 08/15/17 09/30/17 History amLODIPine [Norvasc] 5 mg PO BID 08/15/17 09/30/17 History hydrALAZINE HCL [Apresoline] 50 mg PO BID 08/15/17 09/30/17 History Fluticasone Propionate [Flonase 2 spray EA NOSTRIL DAILY 09/20/17 09/30/17 History Allergy Relief] Lisinopril [Zestril] 20 mg PO BID 09/20/17 09/30/17 History Ranitidine HCl 150 mg PO BID 09/20/17 09/30/17 History Acetaminophen Tab [Tylenol] 650 mg PO Q6HR PRN tab 09/25/17 09/30/17 Rx Allergies Allergy/AdvReac Type Severity Reaction Status Date / Time cephalexin monohydrate Allergy Rash/Hives Verified 09/30/17 08:11 [From Keflex] ciprofloxacin [From Cipro] Allergy Swelling Verified 09/30/17 08:11 ciprofloxacin HCl Allergy Swelling Verified 09/30/17 08:11 [From Cipro] codeine Allergy Unknown Verified 09/30/17 08:11 latex Allergy Itching Verified 09/30/17 08:11 sulfamethoxazole Allergy Itching Verified 09/30/17 08:11 [From Bactrim] trimethoprim [From Bactrim] Allergy Itching Verified 09/30/17 08:11 adhesive tape AdvReac Itching Verified 09/30/17 08:11 Physical Exam Vitals: Vital Signs Temp Pulse Pulse Resp BP BP Pulse Ox 09/30/17 08:00 97.7 F 76 17 142/70 95 09/30/17 07:03 94 L 09/30/17 06:30 98.7 F 81 18 147/69 97 09/30/17 05:55 97.9 F 69 22 124/55 93 L 09/30/17 05:04 73 22 149/60 93 L 09/30/17 04:00 64 18 140/56 98 09/30/17 03:48 66 24 135/58 97 09/30/17 03:00 64 24 142/58 98 09/30/17 02:15 68 22 135/64 99 09/30/17 01:58 78 28 H 126/58 91 L 09/30/17 01:06 98 F 80 24 158/63 94 L Intake and Output 09/29/17 09/30/17 09/30/17 22:59 06:59 14:59 Other: Voiding Method Toilet # Voids 1 Weight 128 kg 128 kg Patient Weight 10/01/17 06:59 Weight 128 kg Examination she is awake alert oriented. HEENT exam JVP is elevated about 8 cm about sternal angle neck is supple no facial asymmetry Lungs are significant for an occasional bibasal are fine crackle with good air entry bilaterally. No dullness to percussion. Heart sounds are unremarkable for any murmur rub gallop Abdomen is obese difficult to examine but nontender no masses felt. Extremity exam was mild to moderate edema Neurologically awake alert oriented. No asterixis. Results - Lab Results Most recent lab results Calcium 9.1 mg/dL (8.4-10.2) 09/30/17 01:40 Magnesium 2.1 mg/dL (1.6-2.3) 09/30/17 01:40 09/30/17 01:40 09/30/17 07:22 Assessment and Plan Plan: Impression. 1. Acute kidney injury , secondary to congestive heart failure. Creatinine is 1.7 improved from 1.92 on 09/27/2017 when she was discharged last time. Her baseline is approximately 1.2 as of 01/30/2017. 2. Chronic kidney disease secondary to nephrosclerosis with and creatinine 1.2 dated 01/30/2017 and 1.43 on 08/15/2017. No proteinuria with urine microalbumin at 47 mg in a 24-hour urine collection as of 05/13/2014 3-1/2 years ago, more recent UA shows 1+ proteinuria on 09/22/2017 may be a mild degree of additional diabetic nephropathy. 3. Hyperkalemia potassium 6.3 secondary to high blood sugar of 464. Additionally she was on lisinopril. 4. Anemia hemoglobin 7.6. no recent iron saturation available 5. Coronary artery disease with history of PCI of the distal RCA in the past Recommendation. 1. IV Lasix currently on 40 every 12, I'll increase it to 80 twice a day and further adjustment as necessary tomorrow. 2. Ensure adequate blood pressure control. 3. Expect potassium to improve with aggressive diuresis, no need for any other measures as most of the high potassium can be explained by the high blood sugar and correction of the blood sugar should improve potassium. We'll recheck her labs after blood sugars are controlled in the next 2 hours 4. Check postvoid residual to ensure there is no obstructive element. 5. Avoid Rich inhibitors or ARB for right now but it can be reinstated later under close monitoring 6. Adequate Blood sugar control to improve her potassium
[2017-09-30 12:14] LABS: Glucose,Whole Blood 417 mg/dL (75-99)
[2017-09-30] MEDS ORDERED: DARBEPOETIN ALFA 40 MCG/0.4 ML SYRINGE SQ SCH (12:15)
--- NOTE | 2017-09-30 12:31 | CONS ---
CONSULTATION ATTENDING DOCTOR: Dr. Gale Amin Mrs. Beach is a 62-year-old female who was just discharged from the hospital, has a known history of coronary disease, history of hypertension, chronic kidney disease, who presented with symptoms of dyspnea. She had multiple admissions recently. She has been complaining of progressive dyspnea with worsening peripheral edema. It was felt that her dyspnea and peripheral edema is related to diastolic dysfunction heart failure. According to her yesterday, she became more dyspneic and more fatigued. She felt some hot feeling in the chest and somewhat dizzy. She says that she had a syncopal episode in EMS although I do not have the EMS sheet. If I review the emergency room note, there is no report of this episode either. During prior admission, she had an echocardiogram done on the of this month and that revealed a preserved systolic function with mild mitral and tricuspid regurgitation with mild pulmonary hypertension. She received iron infusion during prior admission because of the anemia related to her chronic kidney disease. She has a known history of CAD status post stenting of her right coronary artery. She has no documented malignant arrhythmia. Her coronary risk factors are remarkable for the history of hypertension. She is a nonsmoker. She is hyperlipidemic and diabetic. MEDICATION: Include hydralazine 50 mg twice a day, Norvasc 5 mg twice a day, ranitidine, metoprolol tartrate 75 mg twice a day, Zestril 20 mg twice a day, insulin, Lasix 40 mg twice a day, Lipitor 80 mg daily, and aspirin 81 mg daily. REVIEW OF SYSTEMS: RESPIRATORY SYSTEM: She had dyspnea on exertion. No recent wheezing or cough. GI SYSTEM: She had anemia. She has underwent colonoscopy during her last admission with no active bleeding. SYSTEM: She had chronic kidney disease. NERVOUS SYSTEM: No stroke or seizure. PHYSICAL EXAMINATION: 62-year-old female, alert, oriented, mildly dyspneic. Blood pressure 142/70 with a heart in 70s. HEAD: Normocephalic. EYES: Sclerae anicteric. NECK: Good upstroke. No bruit. LUNGS: With mild decreased breath sounds in the left base. HEART: Regular rate and rhythm. S1, S2. No S3 with a systolic murmur. No diastolic murmur. No rub. ABDOMEN: Soft, obese, nontender. EXTREMITIES: +1 to 2 edema bilaterally. LAB DATA: Revealed a BUN and creatinine of 62 and 1.7, which is similar to the range she was in. Her potassium on admission was 6.3. Her troponin 0.039 and 0.047. During her last admission, it was 0.241. Her NT proBNP is 2150. Her D-dimer is 1.88, hemoglobin is 7.6. Her EKG revealed a sinus mechanism with no acute changes. Her ventilation perfusion scan shows low probability for PE. Her chest x-ray shows signs of congestion. IMPRESSION: 1. Recurrent episode of congestive heart failure with preserved ventricular systolic function, could be worsened by the anemia. 2. Anemia of most likely chronic kidney disease. 3. Chronic kidney disease. 4. Hyperkalemia. 5. History of coronary artery disease. 6. Mild elevation in troponin could be related to the renal function abnormality. No clear evidence to suggest a primary ischemic event. 7. Hypertension. 8. Hyperlipidemia. 9. Diabetes mellitus. RECOMMENDATION: From the cardiac standpoint, we will continue on the present antihypertensive regimen. At this time, the option of coronary angiography is not recommended because of the possibility of worsening renal function. We will obtain the input of the Nephrology service. She may benefit from transfusion. Depending on her progress, further recommendation will be made. MMODL / IJN: [id number] /
[2017-09-30 13:31] LABS: Creatine Kinase MB 1.7 ng/mL (0.0-2.4); Troponin I 0.031 ng/mL (0.000-0.034)
[2017-09-30] MEDS ORDERED: FUROSEMIDE 10 MG/ML 4 ML VIAL IV SCH (14:00)
[2017-09-30 16:29] LABS: Iron Saturation 10.37 (12.00-45.00)
--- NOTE | 2017-09-30 16:49 | HP ---
HISTORY AND PHYSICAL CHIEF COMPLAINT: A 62-year-old white female with shortness of breath. HISTORY OF PRESENT ILLNESS: 62-year-old white female was admitted with a history of coronary artery disease. MMKRISHAN / KEENANN: [id number] /
--- NOTE | 2017-09-30 16:58 | CONS ---
CONSULTATION Loreta Beach is a 62-year-old female who presented to [facility] with increasing shortness of breath of about 1 day's duration. She had recently been admitted to the hospital with shortness of breath of about 2-3 weeks. She was found to be anemic and had renal failure. She was admitted to the hospital [facility] on 09/26/2017 and subsequently discharged after a colonoscopy and upper GI endoscopy was done. She continued to have shortness of breath and came into the ER. She denies any cough. No significant wheezing. She does have a significant amount of edema. PAST MEDICAL HISTORY: Positive for coronary artery disease with previous stent to the RCA, acute on chronic renal failure, congestive heart failure with evidence of pulmonary hypertension with elevated pulmonary pressures at about 41 mmHg on her last echo, history of chronic anemia, history of diabetes mellitus type 2. History of diabetic foot ulcer, history of anxiety, history of snoring with witnessed apneas for which she has not had any further workup for sleep apnea at this time. FAMILY HISTORY: Positive for cancer in a brother who of leukemia. Sister has a history of diabetes, hypertension, myocardial infarction. Mother has a history of diabetes, CVA and GA. Father has a history of diabetes and hypertension. SOCIAL HISTORY: The patient is a nonsmoker. Does not drink alcohol excessively. MEDICATIONS: Prior to admission were hydralazine, Norvasc, ranitidine, Lopressor, Claritin, Zestril, Apidra, Lantus, Lasix, fluticasone, propionate, Lipitor, aspirin, and Tylenol. REVIEW OF SYSTEMS: Positive for obesity. PHYSICAL EXAMINATION: Blood pressure is 147/70, respiratory rate is 17, pulse rate 85, temperature 97.3, O2 saturation on 5 L by nasal cannula is 95%. HEENT reveals pupils that are equal. The patient has redundant tissue in the posterior pharynx. Chest reveals scattered crackles at the bases. No clear wheeze. Cardiovascular system reveals an S1, S2. S3 is heard. Abdomen is soft. There is 2+ pedal edema. LABS: Revealed a white count of 15, hemoglobin of 7.6, sodium 138, potassium 6, chloride 106, bicarb 23, glucose 464. Troponin 0.047. NT proBNP 2150. Albumin of 3.3, BUN 62, creatinine 1.7. V/Q scan is low probability for PE. Chest x-ray shows evidence of interstitial and alveolar edema consistent with congestive heart failure. IMPRESSION: At this time: 1. Acute respiratory failure secondary to congestive heart failure and acute pulmonary edema is likely. 2. Obstructive sleep apnea that may be severe enough to cause pulmonary hypertension and may be contributing to overall symptomatology. 3. Uncontrolled diabetes mellitus. 4. Protein malnutrition. 5. Severe anemia, etiology which is unclear. 6. Environmental allergies. 7. Coronary artery disease. 8. Acute on chronic renal failure. 9. Hyperkalemia. At this point in time from a pulmonary standpoint, would aggressively diurese the patient. The patient has been started on Lasix by Nephrology. Would control her blood sugars. Keep her on GI prophylaxis. Avoid heparin at this time due to her anemia. Did personnel counselor her to strongly consider getting a sleep study done and treatment for sleep apnea. We will follow her closely during the hospital stay. I appreciate the opportunity to participate in her care. Medications were reviewed. ALLERGIES which she has several off were reviewed including CEPHALEXIN, CIPROFLOXACIN, CODEINE, LATEX, SULFAMETHOXAZOLE, AND ADHESIVE TAPE. MMODL / IJN: [id number] /
[2017-09-30 17:36] LABS: Glucose,Whole Blood 442 mg/dL (75-99)
--- NOTE | 2017-09-30 18:22 | HP ---
HISTORY AND PHYSICAL This is a 62-year-old white female with shortness of breath. HISTORY OF PRESENT ILLNESS: 62-year-old white female with shortness of breath, cough, congestion for the last 2-3 weeks, worsening over the past as she was sent home and now readmitted to the hospital due to unable to breathe at home. She had a low probability V/Q scan this morning. She had a GI a colonoscopy which was negative. She is still has acute on chronic anemia, shortness of breath, came to the ER. Denies any wheezing or edema. PAST MEDICAL HISTORY: Coronary artery disease, previous stents RCA, acute on chronic renal failure, congestive heart failure, pulmonary hypertension, chronic anemia, diabetes mellitus type 2, history of diabetic foot ulcer, history of anxiety, history of snoring, witnessed apnea. FAMILY HISTORY: Cancer. Brother with leukemia, diabetes mellitus, hypertension, myocardial infarction. Mother with a history of diabetes, CVA. Father with diabetes and hypertension. REVIEW OF SYSTEMS: Fourteen point review of systems negative except for as mentioned in HPI. PHYSICAL EXAMINATION: Blood pressure is 147/70, respiratory 17 to 20, pulse 85, temp 97.3, 5 L oxygen 95%. LUNGS: Show scattered rhonchi and wheeze at the bases. CARDIOVASCULAR: S1, S2 without murmurs, rubs given. ABDOMEN: Soft. HEMATOLOGY: 2+ pedal edema. NEUROLOGIC: Alert and orient x3. PSYCH: Fair mood and affect. LABS: Show white count 15, hemoglobin 7.6, BNP 2150, albumin 3.3, creatinine 1.7. V/Q low probability. ASSESSMENT: 1. Acute hypoxemic respiratory distress secondary to congestive heart failure. 2. Acute pulmonary edema. 3. Obstructive sleep apnea. 4. Pulmonary hypertension. 5. Uncontrolled diabetes mellitus. 6. Protein calorie malnutrition. 7. Severe anemia. 8. Environmental allergies. 9. Acute on chronic renal failure. 10.Hyperkalemia. IV Lasix. Nephrology is consulted. Possible CT study will be done as outpatient. GI consult for anemia. Please see further orders. MMODL / IJN: [id number] /
[2017-09-30 20:53] LABS: Glucose,Whole Blood 345 mg/dL (75-99)
[2017-09-30] MEDS: ATORVASTATIN 80 MG TAB PO SCH (20:56)
[2017-09-30] MEDS: FUROSEMIDE 10 MG/ML 10 ML VIAL IV SCH (20:59)
[2017-09-30] MEDS: INSULIN DETEMIR 100 UNIT/ML 10 ML VIAL SQ SCH (21:08)
[2017-10-01 06:32] LABS: Glucose,Whole Blood 336 mg/dL (75-99)
[2017-10-01 06:48] LABS: Calcium 9.3 mg/dL (8.4-10.2); Potassium 5.9 mmol/L (3.5-5.1)
[2017-10-01] MEDS: INSULIN ASPART 100 UNIT/ML 1 ML 10 ML VIAL SQ SCH ×7 (07:11→21:28)
[2017-10-01] MEDS: METOPROLOL TARTRATE 25 MG TAB PO SCH ×2 (07:55→19:43)
[2017-10-01] MEDS: amLODIPine 5 MG TAB PO SCH ×2 (07:55→19:55)
[2017-10-01] MEDS: ASPIRIN 81 MG PO SCH (07:55)
[2017-10-01] MEDS: LISINOPRIL 20 MG TAB PO SCH (07:55)
[2017-10-01] MEDS: hydrALAZINE HCL 50 MG TAB PO SCH ×2 (07:55→19:43)
[2017-10-01] MEDS: FAMOTIDINE 20 MG TAB PO SCH (07:56)
[2017-10-01] MEDS: FUROSEMIDE 10 MG/ML 10 ML VIAL IV SCH ×2 (07:56→19:43)
[2017-10-01] MEDS: ISOSORBIDE MONONITRATE ER 30 MG TAB.ER.24H PO SCH (07:56)
[2017-10-01] MEDS: LORATADINE 10 MG TAB PO SCH (07:56)
[2017-10-01] MEDS: FLUTICASONE 50MCG/SPRAY NASAL 16GM EA NOSTRIL SCH (07:57)
[2017-10-01] MEDS ORDERED: SODIUM POLYSTYRENE SULFONATE 15 GM/60 ML BOTTLE PO STA (09:54)
[2017-10-01 11:03] LABS: HCT 21.4 % (34.0-46.0); Hypochromasia Slight; MCHC 30.3 g/dL (31.0-37.0); MCV 92.2 fL (80.0-100.0); Platelet Count 274 k/uL (150-450); RBC 2.32 m/uL (3.80-5.40); RDW 14.5 % (11.5-15.5); WBC 15.4 k/uL (3.8-10.6)
[2017-10-01 11:05] LABS: HGB 6.5 gm/dL (11.4-16.0)
[2017-10-01 11:44] LABS: Glucose,Whole Blood 324 mg/dL (75-99)
--- NOTE | 2017-10-01 14:59 | P.PN ---
Subjective Progress Note Date: 10/01/17 Principal diagnosis: This is a 62-year-old female who was just recently discharged from the hospital, she has a known history of coronary artery disease, hypertension, chronic kidney disease, presented to the hospital with symptoms of dyspnea. It was felt that the dyspnea and the associated peripheral edema or secondary to her diastolic dysfunction. Patient also stated that she had a syncopal episode in the EMS although there are no record of that EMS documentation. Echocardiogram with Doppler study was performed earlier this month which revealed preserved systolic function with mild mitral and tricuspid regurg, mild pulmonary hypertension. Patient did receive iron infusion during the prior admission because of anemia related to chronic kidney disease. Patient was seen and examined this morning still felt short of breath, but does state that she feels better than her presentation here. At pressure 136/60 with a heart rate in the 60s, 91% on 4 L of oxygen. Her weight is unchanged from yesterday. Sodium 138, potassium 5.9, BUN 78, creatinine 1.8. Hemoglobin today is 6.5. PHYSICAL EXAMINATION: HEENT: Head is atraumatic, normocephalic. Pupils equal, round. Neck is supple. There is no elevated jugular venous pressure. HEART EXAMINATION: Heart S1 and S2 systolic murmur is heard. CHEST EXAMINATION: Circumflex clear with mild diminished air entry to the bases. ABDOMEN: Soft, nontender. Bowel sounds are heard. No organomegaly noted. EXTREMITIES: 2+ peripheral pulses with 1 plus evidence of peripheral edema and no calf tenderness noted. NEUROLOGIC patient is awake, alert and oriented -3. . Objective - Vital Signs Vital signs: Vital Signs Temp 97.6 F 10/01/17 08:00 Pulse 68 10/01/17 12:00 Resp 18 10/01/17 12:00 BP 136/66 10/01/17 12:00 Pulse Ox 91 L 10/01/17 12:00 Intake & Output 09/30/17 10/01/17 10/01/17 18:59 06:59 18:59 Intake Total 600 660 Balance 600 660 Weight 128 kg 129.2 kg Intake: Oral 600 660 Other: Voiding Method Toilet # Voids 1 1 - Labs CBC & Chem 7: 10/01/17 06:00 10/01/17 06:00 Labs: Abnormal Lab Results - Last 24 Hours (Table) 09/30/17 09/30/17 09/30/17 Range/Units 12:28 17:19 20:51 WBC (3.8-10.6) k/uL RBC (3.80-5.40) m/uL Hgb (11.4-16.0) gm/dL Hct (34.0-46.0) % MCHC (31.0-37.0) g/dL Potassium (3.5-5.1) mmol/L BUN (7-17) mg/dL Creatinine (0.52-1.04) mg/dL Glucose (74-99) mg/dL POC Glucose (mg/dL) 442 H 345 H (75-99) mg/dL Iron 28 L (50-170) ug/dL Iron Saturation 10.37 L (12.00-45.00) Crossmatch 10/01/17 10/01/17 10/01/17 Range/Units 06:00 06:00 06:09 WBC 15.4 H (3.8-10.6) k/uL RBC 2.32 L (3.80-5.40) m/uL Hgb 6.5 L* (11.4-16.0) gm/dL Hct 21.4 L (34.0-46.0) % MCHC 30.3 L (31.0-37.0) g/dL Potassium 5.9 H (3.5-5.1) mmol/L BUN 78 H (7-17) mg/dL Creatinine 1.85 H (0.52-1.04) mg/dL Glucose 311 H (74-99) mg/dL POC Glucose (mg/dL) 336 H (75-99) mg/dL Iron (50-170) ug/dL Iron Saturation (12.00-45.00) Crossmatch 10/01/17 10/01/17 Range/Units 11:39 12:34 WBC (3.8-10.6) k/uL RBC (3.80-5.40) m/uL Hgb (11.4-16.0) gm/dL Hct (34.0-46.0) % MCHC (31.0-37.0) g/dL Potassium (3.5-5.1) mmol/L BUN (7-17) mg/dL Creatinine (0.52-1.04) mg/dL Glucose (74-99) mg/dL POC Glucose (mg/dL) 324 H (75-99) mg/dL Iron (50-170) ug/dL Iron Saturation (12.00-45.00) Crossmatch See Detail Assessment and Plan Plan: Assessment and plan #1 diastolic congestive heart failure acute on chronic, exasperated by anemia #2 anemia #3 chronic kidney disease #4 hyperkalemia # 5 history of coronary artery disease #6 hypertension #7 hyperlipidemia #8 diabetes Plan Cardiology's perspective, we will recommend to continue current dose of IV Lasix. Patient is also scheduled to receive blood transfusion, we'll check her labs in the morning. Continue to monitor intake and output along with daily weights. DNP note has been reviewed, I agree with a documented findings and plan of care. Patient was seen and examined.
--- NOTE | 2017-10-01 16:35 | PN ---
PROGRESS NOTE DATE OF SERVICE: 10/01/17 She was seen again on September2017. She has been hemodynamically stable. She is less short of breath, but continues to have some baseline shortness of breath. PHYSICAL EXAMINATION: Her blood pressure is 136/66, respiratory rate of 18, pulse rate of 68, temperature 97.6, O2 saturation on 4 L by nasal cannula is 91%. HEENT reveals no new changes. Chest reveals scattered crackles at the base. Cardiovascular system is S1, S2. ABDOMEN: Soft. There is 1+ to 2+ pedal edema. White count is 15.4, hemoglobin of 6.5, sodium 138, potassium 5.9, chloride 105, bicarb 23, BUN 78, creatinine 1.85. Iron studies are consistent with iron deficiency anemia. IMPRESSION: At this time: 1. Shortness of breath. That is multifactorial in part due to congestive heart failure and anemia. 2. Obstructive sleep apnea. 3. Pulmonary hypertension. 4. Obesity. 5. Renal failure. At this point in time, would continue to diurese her as she is symptomatic. Would transfuse her a with packed cells have surgery further evaluate the patient for a source of bleed. Depending on how she does we should make further changes to her care. MMODL / IJN: [id number] /
--- NOTE | 2017-10-01 17:13 | P.CONS ---
History of Present Illness - Reason for Consult Consult date: 10/01/17 B12, iron deficient anemia Requesting physician: Demetrio Flaherty - Chief Complaint SOB - History of Present Illness Mrs. Beach is a very pleasant 62-year-old female who was seen last week for anemia, this was progressive over the last 3 years, pt denied knowledge of a history of anemia. She has had EGD/colonoscopy that were unremarkable, iron studies were low and pt was supplemented, B12 was normal but MMA was high suggesting functional deficiency so B12 supplementation was to be started, rest of the work up revealed no paraproteinemia, no M-protein. This is pt 3rd admit this month for SOB/CHERYL, she has been readmitted for SOB/ CHERYL. S She has been seen by Nephrology and being treated for diabetes and renal insufficiency. Cardiology following for CHF. Pulmonary following and treating pulmonary hypertension, pt recommended to be evaluated for apnea. Pt c/o SOB with any exertion, persistent fatigue, she had PND, wakes up frequently and snores a lot, she is tired all the time. She denies visible bleeding or blood loss, no fevers, appetite is fair, no nausea or vomiting, changes in bowel or bladder habits, no pain to report. Review of Systems 10 point ROS as stated in HPI Past Medical History Past Medical History: Coronary Artery Disease (CAD), Heart Failure, Diabetes Mellitus, Hyperlipidemia, Hypertension, Myocardial Infarction ([place]) Additional Past Medical History / Comment(s): edema, seasonal allergies, Diabetic ulcer-SEES DR ZELAYA FOR WOUND CARE, anemia, neuropathy, CKD Last Myocardial Infarction Date:: 01/10/15 History of Any Multi-Drug Resistant Organisms: None Reported Past Surgical History: Heart Catheterization With Stent Additional Past Surgical History / Comment(s): PT HAD STENT TO DISTAL RCA IN DECEMBER 2014, carpal tunnel bilateral hands, Eye surgery to cauterize bleeding November, Past Anesthesia/Blood Transfusion Reactions: Family History of Problems w/ Anesthesia, Motion Sickness Additional Past Anesthesia/Blood Transfusion Reaction / Comm: states mother had difficulty coming out of anesthesia Date of Last Stent Placement:: 12/30 Past Psychological History: Anxiety Smoking Status: Never smoker Past Alcohol Use History: None Reported Past Drug Use History: None Reported - Past Family History Brother(s) Family Medical History: Cancer ( 6 eeks old of leukemia) Sister(s) Family Medical History: Diabetes Mellitus, Hypertension, Myocardial Infarction ( [place]), Vascular Disorder Additional Family Medical History / Comment(s): post procedure of five stents Mother Family Medical History: CVA/TIA, Diabetes Mellitus, Myocardial Infarction ([place]) Additional Family Medical History / Comment(s): TIA's, PVD. Mother at age 65yrs. Father Family Medical History: Dementia, Diabetes Mellitus, Hypertension Additional Family Medical History / Comment(s): Father at age 72 yrs. Medications and Allergies Home Medications Medication Instructions Recorded Confirmed Type Loratadine [Claritin] 10 mg PO DAILY 01/05/15 09/30/17 History Aspirin 81 mg PO DAILY 04/16/15 09/30/17 History Atorvastatin [Lipitor] 80 mg PO HS 10/14/15 09/30/17 History Insulin Glulisine [Apidra] 15 unit SQ TID 11/05/15 09/30/17 History Insulin Glargine [Lantus] 50 unit SQ HS 01/22/17 09/30/17 History Metoprolol Tartrate [Lopressor] 75 mg PO BID #60 tablet 01/24/17 09/30/17 Rx Furosemide [Lasix] 40 mg PO BID 08/15/17 09/30/17 History amLODIPine [Norvasc] 5 mg PO BID 08/15/17 09/30/17 History hydrALAZINE HCL [Apresoline] 50 mg PO BID 08/15/17 09/30/17 History Fluticasone Propionate [Flonase 2 spray EA NOSTRIL DAILY 09/20/17 09/30/17 History Allergy Relief] Lisinopril [Zestril] 20 mg PO BID 09/20/17 09/30/17 History Ranitidine HCl 150 mg PO BID 09/20/17 09/30/17 History Acetaminophen Tab [Tylenol] 650 mg PO Q6HR PRN tab 09/25/17 09/30/17 Rx Allergies Allergy/AdvReac Type Severity Reaction Status Date / Time cephalexin monohydrate Allergy Rash/Hives Verified 09/30/17 08:11 [From Keflex] ciprofloxacin [From Cipro] Allergy Swelling Verified 09/30/17 08:11 ciprofloxacin HCl Allergy Swelling Verified 09/30/17 08:11 [From Cipro] codeine Allergy Unknown Verified 09/30/17 08:11 latex Allergy Itching Verified 09/30/17 08:11 sulfamethoxazole Allergy Itching Verified 09/30/17 08:11 [From Bactrim] trimethoprim [From Bactrim] Allergy Itching Verified 09/30/17 08:11 adhesive tape AdvReac Itching Verified 09/30/17 08:11 Physical Exam Vitals: Vital Signs Temp Pulse Pulse Resp BP BP Pulse Ox 10/01/17 15:09 98 F 70 141/57 10/01/17 15:00 97.1 F L 70 142/67 10/01/17 12:00 68 18 136/66 91 L 10/01/17 08:12 97 10/01/17 08:05 18 93 L 10/01/17 08:00 97.6 F 71 19 139/59 86 L 10/01/17 04:00 97.9 F 66 18 124/53 97 10/01/17 00:00 98.0 F 68 19 126/57 96 09/30/17 20:00 98.1 F 81 20 141/79 95 Intake and Output 10/01/17 10/01/17 10/01/17 06:59 14:59 22:59 Intake Total 660 0 Balance 660 0 Intake: Oral 660 Blood Product 0 Rc As-1 Unit 0 [id number] Other: Voiding Method Toilet # Voids 1 1 Weight 129.2 kg - Constitutional General appearance: cooperative, no acute distress, obese - EENT Eyes: anicteric sclerae, EOMI, normal appearance ENT: normal oropharynx - Neck Neck: no lymphadenopathy - Respiratory Respiratory: bilateral: diminished - Cardiovascular Rhythm: regular Heart sounds: normal: S1, S2 Abnormal Heart Sounds: systolic murmur leg Peripheral Edema: bilateral: Trace - Gastrointestinal General gastrointestinal: no absent bowel sounds, no decreased bowel sounds, no distended, no hepatomegaly, no hyperactive bowel sounds, normal bowel sounds, no organomegaly, no rigid, no scaphoid, soft, no splenomegaly, no tenderness, no umbilical hernia, no ventral hernia - Integumentary BLE bronzing of shins from vascular insufficiency, no ulcerations - Neurologic Neurologic: CNII-XII intact - Musculoskeletal Musculoskeletal: generalized weakness, strength equal bilaterally - Psychiatric Psychiatric: A&O x's 3, appropriate affect, intact judgment & insight Results CBC & Chem 7: 10/01/17 06:00 10/01/17 06:00 Labs: Abnormal Lab Results - Last 24 Hours (Table) 09/30/17 09/30/17 09/30/17 Range/Units 12:28 17:19 20:51 WBC (3.8-10.6) k/uL RBC (3.80-5.40) m/uL Hgb (11.4-16.0) gm/dL Hct (34.0-46.0) % MCHC (31.0-37.0) g/dL Potassium (3.5-5.1) mmol/L BUN (7-17) mg/dL Creatinine (0.52-1.04) mg/dL Glucose (74-99) mg/dL POC Glucose (mg/dL) 442 H 345 H (75-99) mg/dL Iron 28 L (50-170) ug/dL Iron Saturation 10.37 L (12.00-45.00) Crossmatch 10/01/17 10/01/17 10/01/17 Range/Units 06:00 06:00 06:09 WBC 15.4 H (3.8-10.6) k/uL RBC 2.32 L (3.80-5.40) m/uL Hgb 6.5 L* (11.4-16.0) gm/dL Hct 21.4 L (34.0-46.0) % MCHC 30.3 L (31.0-37.0) g/dL Potassium 5.9 H (3.5-5.1) mmol/L BUN 78 H (7-17) mg/dL Creatinine 1.85 H (0.52-1.04) mg/dL Glucose 311 H (74-99) mg/dL POC Glucose (mg/dL) 336 H (75-99) mg/dL Iron (50-170) ug/dL Iron Saturation (12.00-45.00) Crossmatch 10/01/17 10/01/17 Range/Units 11:39 12:34 WBC (3.8-10.6) k/uL RBC (3.80-5.40) m/uL Hgb (11.4-16.0) gm/dL Hct (34.0-46.0) % MCHC (31.0-37.0) g/dL Potassium (3.5-5.1) mmol/L BUN (7-17) mg/dL Creatinine (0.52-1.04) mg/dL Glucose (74-99) mg/dL POC Glucose (mg/dL) 324 H (75-99) mg/dL Iron (50-170) ug/dL Iron Saturation (12.00-45.00) Crossmatch See Detail Assessment and Plan (1) Normocytic normochromic anemia Narrative/Plan: Pt is scheduled for 1 unit PRBCs for Hgb 6.5. Transfuse to keep Hgb 7 or higher unless pt is symptomatic. GI work up last week was negative for source of acute bleeding. Pt may require capsule endo. Nephrology has ordered epo supplementation. Iron studies will need to be monitored B12 supplementation 1000mcg weekly x 4 then monthly recommended Current Visit: Yes Status: Acute Priority: High Code(s): D64.9 - ANEMIA, UNSPECIFIED SNOMED Code(s): 47444132
[2017-10-01 17:14] LABS: Glucose,Whole Blood 194 mg/dL (75-99)
[2017-10-01] MEDS ORDERED: CYANOCOBALAMIN 1,000 MCG/ML 1 ML VIAL IM ONE (17:14)
--- NOTE | 2017-10-01 18:00 | P.GSCN ---
History of Present Illness Consult date: 10/01/17 Reason for Consult: Anemia History of present illness: This 62-year-old female who presented with chief complaint shortness of breath. She was found to be in CHF exacerbation. She also overnight had a drop in her hemoglobin. She recently had both colonoscopy and EGD she had a small polyp that was removed. She has had no melena no bloody bowel movements no abdominal pain no nausea vomiting. She's tolerating her diet. She is chronically anemic however this is acute on chronic anemia. She does admit to feeling tired and as she put it "sluggish" as of late. Past Medical History Past Medical History: Coronary Artery Disease (CAD), Heart Failure, Diabetes Mellitus, Hyperlipidemia, Hypertension, Myocardial Infarction ([place]) Additional Past Medical History / Comment(s): edema, seasonal allergies, Diabetic ulcer-SEES DR ZELAYA FOR WOUND CARE, anemia, neuropathy, CKD Last Myocardial Infarction Date:: 01/10/15 History of Any Multi-Drug Resistant Organisms: None Reported Past Surgical History: Heart Catheterization With Stent Additional Past Surgical History / Comment(s): PT HAD STENT TO DISTAL RCA IN DECEMBER 2014, carpal tunnel bilateral hands, Eye surgery to cauterize bleeding November, Past Anesthesia/Blood Transfusion Reactions: Family History of Problems w/ Anesthesia, Motion Sickness Additional Past Anesthesia/Blood Transfusion Reaction / Comm: states mother had difficulty coming out of anesthesia Date of Last Stent Placement:: 12/30 Past Psychological History: Anxiety Smoking Status: Never smoker Past Alcohol Use History: None Reported Past Drug Use History: None Reported - Past Family History Brother(s) Family Medical History: Cancer ( 6 eeks old of leukemia) Sister(s) Family Medical History: Diabetes Mellitus, Hypertension, Myocardial Infarction ( [place]), Vascular Disorder Additional Family Medical History / Comment(s): post procedure of five stents Mother Family Medical History: CVA/TIA, Diabetes Mellitus, Myocardial Infarction ([place]) Additional Family Medical History / Comment(s): TIA's, PVD. Mother at age 65yrs. Father Family Medical History: Dementia, Diabetes Mellitus, Hypertension Additional Family Medical History / Comment(s): Father at age 72 yrs. Medications and Allergies Home Medications Medication Instructions Recorded Confirmed Type Loratadine [Claritin] 10 mg PO DAILY 01/05/15 09/30/17 History Aspirin 81 mg PO DAILY 04/16/15 09/30/17 History Atorvastatin [Lipitor] 80 mg PO HS 10/14/15 09/30/17 History Insulin Glulisine [Apidra] 15 unit SQ TID 11/05/15 09/30/17 History Insulin Glargine [Lantus] 50 unit SQ HS 01/22/17 09/30/17 History Metoprolol Tartrate [Lopressor] 75 mg PO BID #60 tablet 01/24/17 09/30/17 Rx Furosemide [Lasix] 40 mg PO BID 08/15/17 09/30/17 History amLODIPine [Norvasc] 5 mg PO BID 08/15/17 09/30/17 History hydrALAZINE HCL [Apresoline] 50 mg PO BID 08/15/17 09/30/17 History Fluticasone Propionate [Flonase 2 spray EA NOSTRIL DAILY 09/20/17 09/30/17 History Allergy Relief] Lisinopril [Zestril] 20 mg PO BID 09/20/17 09/30/17 History Ranitidine HCl 150 mg PO BID 09/20/17 09/30/17 History Acetaminophen Tab [Tylenol] 650 mg PO Q6HR PRN tab 09/25/17 09/30/17 Rx Allergies Allergy/AdvReac Type Severity Reaction Status Date / Time cephalexin monohydrate Allergy Rash/Hives Verified 09/30/17 08:11 [From Keflex] ciprofloxacin [From Cipro] Allergy Swelling Verified 09/30/17 08:11 ciprofloxacin HCl Allergy Swelling Verified 09/30/17 08:11 [From Cipro] codeine Allergy Unknown Verified 09/30/17 08:11 latex Allergy Itching Verified 09/30/17 08:11 sulfamethoxazole Allergy Itching Verified 09/30/17 08:11 [From Bactrim] trimethoprim [From Bactrim] Allergy Itching Verified 09/30/17 08:11 adhesive tape AdvReac Itching Verified 09/30/17 08:11 Surgical - Exam Osteopathic Statement: *. No significant issues noted on an osteopathic structural exam other than those noted in the History and Physical/Consult. Vital Signs Temp Pulse Resp BP Pulse Ox 98 F 80 24 158/63 94 L 09/30/17 01:06 09/30/17 01:06 09/30/17 01:06 09/30/17 01:06 09/30/17 01:06 - General well developed, well nourished - Eyes PERRL, normal ocular movement - ENT normal pinna, normal nares - Neck no masses, no bruits, trachea midline - Respiratory normal expansion, normal respiratory effort - Cardiovascular Rhythm: regular - Abdomen Abdomen: soft, non tender - Psychiatric oriented to time, oriented to person, oriented to place Results - Labs 10/01/17 06:00 10/01/17 06:00 Abnormal Lab Results - Last 24 Hours (Table) 09/30/17 09/30/17 10/01/17 Range/Units 12:28 20:51 06:00 WBC (3.8-10.6) k/uL RBC (3.80-5.40) m/uL Hgb (11.4-16.0) gm/dL Hct (34.0-46.0) % MCHC (31.0-37.0) g/dL Potassium 5.9 H (3.5-5.1) mmol/L BUN 78 H (7-17) mg/dL Creatinine 1.85 H (0.52-1.04) mg/dL Glucose 311 H (74-99) mg/dL POC Glucose (mg/dL) 345 H (75-99) mg/dL Iron 28 L (50-170) ug/dL Iron Saturation 10.37 L (12.00-45.00) Crossmatch 10/01/17 10/01/17 10/01/17 Range/Units 06:00 06:09 11:39 WBC 15.4 H (3.8-10.6) k/uL RBC 2.32 L (3.80-5.40) m/uL Hgb 6.5 L* (11.4-16.0) gm/dL Hct 21.4 L (34.0-46.0) % MCHC 30.3 L (31.0-37.0) g/dL Potassium (3.5-5.1) mmol/L BUN (7-17) mg/dL Creatinine (0.52-1.04) mg/dL Glucose (74-99) mg/dL POC Glucose (mg/dL) 336 H 324 H (75-99) mg/dL Iron (50-170) ug/dL Iron Saturation (12.00-45.00) Crossmatch 10/01/17 10/01/17 Range/Units 12:34 17:09 WBC (3.8-10.6) k/uL RBC (3.80-5.40) m/uL Hgb (11.4-16.0) gm/dL Hct (34.0-46.0) % MCHC (31.0-37.0) g/dL Potassium (3.5-5.1) mmol/L BUN (7-17) mg/dL Creatinine (0.52-1.04) mg/dL Glucose (74-99) mg/dL POC Glucose (mg/dL) 194 H (75-99) mg/dL Iron (50-170) ug/dL Iron Saturation (12.00-45.00) Crossmatch See Detail Diabetes panel 10/01/17 Range/Units 06:00 Sodium 138 (137-145) mmol/L Potassium 5.9 H (3.5-5.1) mmol/L Chloride 105 (98-107) mmol/L Carbon Dioxide 23 (22-30) mmol/L BUN 78 H (7-17) mg/dL Creatinine 1.85 H (0.52-1.04) mg/dL Glucose 311 H (74-99) mg/dL Calcium 9.3 (8.4-10.2) mg/dL Calcium panel 10/01/17 Range/Units 06:00 Calcium 9.3 (8.4-10.2) mg/dL Pituitary panel 10/01/17 Range/Units 06:00 Sodium 138 (137-145) mmol/L Potassium 5.9 H (3.5-5.1) mmol/L Chloride 105 (98-107) mmol/L Carbon Dioxide 23 (22-30) mmol/L BUN 78 H (7-17) mg/dL Creatinine 1.85 H (0.52-1.04) mg/dL Glucose 311 H (74-99) mg/dL Calcium 9.3 (8.4-10.2) mg/dL Adrenal panel 10/01/17 Range/Units 06:00 Sodium 138 (137-145) mmol/L Potassium 5.9 H (3.5-5.1) mmol/L Chloride 105 (98-107) mmol/L Carbon Dioxide 23 (22-30) mmol/L BUN 78 H (7-17) mg/dL Creatinine 1.85 H (0.52-1.04) mg/dL Glucose 311 H (74-99) mg/dL Calcium 9.3 (8.4-10.2) mg/dL Assessment and Plan Assessment: Acute on chronic Anemia Plan: Patient recently had upper and lower endoscopy. She reports no melena or bloody bowel movements.At this time she is being transfused will follow repeat hemoglobin. No plans for acute surgical intervention at this time. Thank you for involving me in this patient's care and I will continue to follow her trending hemoglobin.
[2017-10-01] MEDS: ATORVASTATIN 80 MG TAB PO SCH (19:43)
[2017-10-01 20:44] LABS: Glucose,Whole Blood 199 mg/dL (75-99)
[2017-10-01] MEDS: INSULIN DETEMIR 100 UNIT/ML 10 ML VIAL SQ SCH (21:28)
--- NOTE | 2017-10-01 23:08 | PN ---
PROGRESS NOTE Admitted with congestive heart failure, COPD. Her hemoglobin is down to 6.5. Will be given 2 units of packed red blood cells for severe anemia today. Her BUN is 78, his creatinine 1.85. Sugars are mid 100s-300s. ASSESSMENT: 1. Severe anemia unclear etiology. 2. Congestive heart failure. 3. Chronic obstructive pulmonary disease. 4. Obesity. Prognosis extremely guarded. Consult Hematology for severe anemia. Pulmonary and cardiology to see the patient also. MMODL / IJN: [id number] /
--- NOTE | 2017-10-01 23:23 | PN ---
PROGRESS NOTE The patient is seen for followup for acute kidney injury on top of chronic kidney disease. She was readmitted to the hospital with CHF and shortness of breath. Currently, she is maintained on IV Lasix at 80 mg q.12 hours. Patient states she is feeling slightly better. Her weight, however, has not decreased yet. The 24 hour urine output is not accurately charted. EXAMINATION: Blood pressure is 143/75, heart rate 76 per minute. Patient is afebrile. Examination of the heart S1, S2. Examination lungs decreased breath sounds at bases. No crackles or wheezing is heard. ABDOMEN: Soft, obese. Examination of the lower extremity shows edema 1+ bilaterally. 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 LAB: Show sodium 138, potassium 5.9, hemoglobin of 6.5, BUN 78, serum creatinine 1.85. ASSESSMENT: 1. Acute kidney injury mainly cardiorenal and associated with severe anemia. Renal function is about the same as yesterday. Patient has had good urine output. I will continue with the IV Lasix for now. 2. Hyperkalemia associated with the acute kidney injury, use of KEN inhibitors and possibly underlying GI bleed as well. Will give 1 dose of Kayexalate and continue with the IV Lasix. No active bleeding noted at this time. I will DC lisinopril as well. 3. Anemia with no active bleeding. The patient has been seen by the Hematology. She will receive 1 unit packed RBCs. 4. Chronic kidney disease secondary to nephrosclerosis and previous creatinine about 1.2-1.5 mg/dL. May be a component of diabetic nephropathy as well. 5. Congestive heart failure, diastolic dysfunction. Continue with IV Lasix for now. PLAN: Continue with the IV Lasix, transfuse 1 unit packed RBCs, Kayexalate x1, and DC lisinopril for now. Follow up on the iron studies. Continue with the Procrit. Iron saturation was 10% on 09/30/2017. Patient did receive IV iron. MMODL / IJN: [id number] /
[2017-10-02 05:52] LABS: Glucose,Whole Blood 193 mg/dL (75-99)
[2017-10-02 05:57] LABS: Basophils # (A) 0.1 k/uL (0-0.2); Basophils % (A) 1 %; Eosinophils # (A) 0.1 k/uL (0-0.7); Eosinophils % (A) 1 %; HCT 27.3 % (34.0-46.0); Hypochromasia Slight; Lymphocytes # (A) 2.1 k/uL (1.0-4.8); Lymphocytes % (A) 20 %; MCH 28.6 pg (25.0-35.0); MCHC 31.4 g/dL (31.0-37.0); Mean Platelet Volume 7.5; Monocytes # (A) 0.6 k/uL (0-1.0); Monocytes % (A) 6 %; Neutrophils # (A) 7.2 k/uL (1.3-7.7); Neutrophils % (A) 71 %; Platelet Count 276 k/uL (150-450); RDW 15.3 % (11.5-15.5); WBC 10.2 k/uL (3.8-10.6)
[2017-10-02 06:12] LABS: Albumin 3.1 g/dL (3.5-5.0); Calcium 8.9 mg/dL (8.4-10.2); Potassium 4.6 mmol/L (3.5-5.1); Total Bilirubin 0.6 mg/dL (0.2-1.3); Total Protein 5.8 g/dL (6.3-8.2)
[2017-10-02 06:58] LABS: HGB 8.6 gm/dL (11.4-16.0)
[2017-10-02] MEDS: INSULIN ASPART 100 UNIT/ML 1 ML 10 ML VIAL SQ SCH ×7 (07:03→21:03)
--- NOTE | 2017-10-02 08:15 | PN ---
PROGRESS NOTE Mrs. Beach is a 62-year-old white female who presented with symptoms of progressive dyspnea. She has a known history of chronic kidney disease, history of coronary artery disease. She presented to the hospital with worsening dyspnea. She is feeling better today. She denies any symptoms of chest pain. She denies any dizziness or palpitation. She denies any nausea. She has continued to be at this time on amlodipine 5 mg twice a day, aspirin once a day, Lipitor 80 mg daily, Pepcid, furosemide 80 mg IV twice a day, hydralazine 50 mg twice a day, insulin, isosorbide mononitrate 30 mg daily, metoprolol tartrate 75 mg twice a day. PHYSICAL EXAMINATION: Blood pressure 130/50 with a heart rate in the 60s. LUNGS: Clear. Heart regular rate and rhythm, S1, S2. No S3 with systolic murmur. No diastolic murmur. No rub. ABDOMEN: Soft, nontender. Extremities trace edema. LAB DATA: Lab data revealed a hemoglobin of 8.6, which is improved compared to yesterday. Her BUN is 80 with a creatinine of 1.6, which is improved compared to yesterday. Her potassium is 4.6. IMPRESSION: 1. Symptoms of congestive heart failure with a combination of anemia, diastolic heart failure with preserved left ventricular systolic function. 2. Chronic kidney disease. 3. Coronary artery disease. 4. Hypertension. 5. Hyperlipidemia. RECOMMENDATION: Patient received an IV transfusion yesterday. She feels better. We will continue present therapy. Increase her level of activity and we will await further input from the nephrology service. MMODL / IJN: [id number] /
--- NOTE | 2017-10-02 10:01 | P.PN ---
Subjective Patient is seen in follow-up for acute kidney injury on chronic kidney disease. Patient has chronic kidney disease stage III with baseline creatinine in the range of 1.2-1.3 from 2017. Etiology is diabetic kidney disease and nephrosclerosis. Renal function is better today with creatinine 1.6. She was noted to have hemoglobin of 6.5 as of October 01 for which she did receive blood transition. Hemoglobin this morning is 8.6. She denies any melena or hematochezia. No hematuria. She is currently maintained on Lasix 80 mg IV twice daily. Admits to good urine output. Edema is improving. Admits to good urine output. Vital signs are stable. General: The patient appeared well nourished and normally developed. HEENT: Head exam is unremarkable. Neck is without jugular venous distension. LUNGS: Lungs are clear to auscultation and percussion. Breath sounds decreased. HEART: Rate and Rhythm are regular. First and second heart sounds normal. No murmurs, rubs or gallops. ABDOMEN: Abdominal exam reveals normal bowel sounds. Non-tender and non- distended. No evidence of peritonitis. EXTREMITITES: 1+ edema. Objective - Vital Signs Vital signs: Vital Signs Temp 97.3 F L 10/02/17 04:00 Pulse 65 10/02/17 04:00 Resp 19 10/02/17 04:00 BP 130/53 10/02/17 04:00 Pulse Ox 96 10/02/17 04:00 Intake & Output 10/01/17 10/02/17 10/02/17 18:59 06:59 18:59 Intake Total 1450 490 400 Output Total 2150 Balance 1450 -1660 400 Weight 129.9 kg Intake: Oral 1140 180 400 Blood Product 310 310 Rc As-1 Unit 310 [id number] Rc As-1 Unit 310 [id number] Output: Urine 2150 Other: Voiding Method Toilet # Voids 1 1 - Labs CBC & Chem 7: 10/02/17 05:43 10/02/17 05:43 Labs: Abnormal Lab Results - Last 24 Hours (Table) 10/01/17 10/01/17 10/01/17 Range/Units 06:00 11:39 12:34 WBC 15.4 H (3.8-10.6) k/uL RBC 2.32 L (3.80-5.40) m/uL Hgb 6.5 L* (11.4-16.0) gm/dL Hct 21.4 L (34.0-46.0) % MCHC 30.3 L (31.0-37.0) g/dL BUN (7-17) mg/dL Creatinine (0.52-1.04) mg/dL Glucose (74-99) mg/dL POC Glucose (mg/dL) 324 H (75-99) mg/dL ALT (9-52) U/L Total Protein (6.3-8.2) g/dL Albumin (3.5-5.0) g/dL Crossmatch See Detail 10/01/17 10/01/17 10/02/17 Range/Units 17:09 20:40 05:43 WBC (3.8-10.6) k/uL RBC 3.00 L (3.80-5.40) m/uL Hgb 8.6 L D (11.4-16.0) gm/dL Hct 27.3 L (34.0-46.0) % MCHC (31.0-37.0) g/dL BUN (7-17) mg/dL Creatinine (0.52-1.04) mg/dL Glucose (74-99) mg/dL POC Glucose (mg/dL) 194 H 199 H (75-99) mg/dL ALT (9-52) U/L Total Protein (6.3-8.2) g/dL Albumin (3.5-5.0) g/dL Crossmatch 10/02/17 10/02/17 Range/Units 05:43 05:51 WBC (3.8-10.6) k/uL RBC (3.80-5.40) m/uL Hgb (11.4-16.0) gm/dL Hct (34.0-46.0) % MCHC (31.0-37.0) g/dL BUN 80 H* (7-17) mg/dL Creatinine 1.60 H (0.52-1.04) mg/dL Glucose 178 H (74-99) mg/dL POC Glucose (mg/dL) 193 H (75-99) mg/dL ALT 54 H (9-52) U/L Total Protein 5.8 L (6.3-8.2) g/dL Albumin 3.1 L (3.5-5.0) g/dL Crossmatch Assessment and Plan Plan: Assessment: #1. Nonoliguric acute kidney injury secondary to ATN secondary to cardiorenal syndrome as well as anemia. Creatinine down to 1.6 today. #2. Chronic kidney disease stage III secondary to diabetic kidney disease and nephrosclerosis with baseline creatinine near 1.2-1.3. #3. Acute anemia status post blood transfusion on October 01. Iron deficiency noted as well. #4. Diabetes mellitus. #5. Volume overload. #6. Diastolic CHF. Currently decompensated. #7. Elevated BUN due to acute kidney injury. Also concern for underlying GI bleed. Hematology following. Plan: Continue Lasix 80 mg IV twice daily. Maintain low salt diet. I will also add 1500 mL fluid restriction. Maintain Aranesp. Ferrlicit 125 mg IV daily for 3 days. First dose today. Avoid nephrotoxic agents and hypotensive episodes. Repeat electrolytes in the morning.
[2017-10-02] MEDS: FLUTICASONE 50MCG/SPRAY NASAL 16GM EA NOSTRIL SCH (10:06)
[2017-10-02] MEDS: FAMOTIDINE 20 MG TAB PO SCH (10:07)
[2017-10-02] MEDS: ASPIRIN 81 MG PO SCH (10:07)
[2017-10-02] MEDS: amLODIPine 5 MG TAB PO SCH ×2 (10:07→20:17)
[2017-10-02] MEDS: FUROSEMIDE 10 MG/ML 10 ML VIAL IV SCH ×2 (10:07→20:17)
[2017-10-02] MEDS: LORATADINE 10 MG TAB PO SCH (10:08)
[2017-10-02] MEDS: ISOSORBIDE MONONITRATE ER 30 MG TAB.ER.24H PO SCH (10:08)
[2017-10-02] MEDS: hydrALAZINE HCL 50 MG TAB PO SCH ×2 (10:08→20:17)
[2017-10-02] MEDS: METOPROLOL TARTRATE 25 MG TAB PO SCH ×2 (10:08→20:17)
[2017-10-02] MEDS: SODIUM FERRIC GLUCONAT-SUCROSE 125 MG in SODIUM CHLORIDE 0.9% 100 ML IVPB SCH (10:14)
--- NOTE | 2017-10-02 10:53 | P.CONS ---
History of Present Illness - Reason for Consult Consult date: 10/02/17 Anemia Requesting physician: Danny Law - History of Present Illness 62-year-old female admitted with shortness of breath acute kidney injury with underlying history of anemia chronic kidney disease stage III, CHF, diabetes, nephrosclerosis. Patient was evaluated a few weeks ago by the GI service for anemia and positive guaiac stools. She when EGD colonoscopy 09/25/2017 both unremarkable; no evidence of esophagitis peptic ulcer disease or angiectasia, descending colon polypectomy. She was seen by hematology supplemented with iron and B12 supplementation. Denies overt bleeding such as hematemesis hematochezia melena. Denies abdominal pain. Home medications include baby aspirin. No NSAIDs or alcohol. Admission hemoglobin 7.6 decreased to 6.5. MCV 92. Platelet 274. Received 2 units of blood current hemoglobin is 8.6. Iron indices consistent with iron deficiency iron 28. TIBC 270. Iron saturation 10%. Ferritin 202. Average hemoglobin over the last several months 7.3-8.6. Hemoglobin 2 years ago between 10-11 range. Review of Systems Constitutional: Denies fever, chills, sweats, weight gain, or loss. HEENT: Negative for migraines, blurred vision or loss, earaches, drainage, tinnitus, oral mucosal lesions, dysphagia, or odynophagia. CARDIAC: CHF. Negative for chest pain, arrhythmias, or palpitation. RESPIRATORY: Negative for shortness of breath, hemoptysis, cough, or sputum production. GI: See HPI for pertinent findings. : Negative for hematuria, urgency, frequency, polyuria, or dysuria. GYNc: Denies possibility of . Negative vaginal discharge. MUSCULOSKELETAL: Negative for muscle aches, swelling, arthritis, and arthralgias. NEUROLOGIC: Negative for stroke or TIA. ENDOCRINE: Diabetes. Negative for thyroid problems. Nephrology: Chronic kidney disease stage III. SKIN: Negative for rash or itching. PSYCHIATRIC: Negative history for depression and anxiety Past Medical History Past Medical History: Coronary Artery Disease (CAD), Heart Failure, Diabetes Mellitus, Hyperlipidemia, Hypertension, Myocardial Infarction ([place]) Additional Past Medical History / Comment(s): edema, seasonal allergies, Diabetic ulcer-SEES DR ZELAYA FOR WOUND CARE, anemia, neuropathy, CKD Last Myocardial Infarction Date:: 01/10/15 History of Any Multi-Drug Resistant Organisms: None Reported Past Surgical History: Heart Catheterization With Stent Additional Past Surgical History / Comment(s): PT HAD STENT TO DISTAL RCA IN DECEMBER 2014, carpal tunnel bilateral hands, Eye surgery to cauterize bleeding November, Past Anesthesia/Blood Transfusion Reactions: Family History of Problems w/ Anesthesia, Motion Sickness Additional Past Anesthesia/Blood Transfusion Reaction / Comm: states mother had difficulty coming out of anesthesia Date of Last Stent Placement:: 12/30 Past Psychological History: Anxiety Smoking Status: Never smoker Past Alcohol Use History: None Reported Past Drug Use History: None Reported - Past Family History Brother(s) Family Medical History: Cancer ( 6 eeks old of leukemia) Sister(s) Family Medical History: Diabetes Mellitus, Hypertension, Myocardial Infarction ( [place]), Vascular Disorder Additional Family Medical History / Comment(s): post procedure of five stents Mother Family Medical History: CVA/TIA, Diabetes Mellitus, Myocardial Infarction ([place]) Additional Family Medical History / Comment(s): TIA's, PVD. Mother at age 65yrs. Father Family Medical History: Dementia, Diabetes Mellitus, Hypertension Additional Family Medical History / Comment(s): Father at age 72 yrs. Medications and Allergies Home Medications Medication Instructions Recorded Confirmed Type Loratadine [Claritin] 10 mg PO DAILY 01/05/15 09/30/17 History Aspirin 81 mg PO DAILY 04/16/15 09/30/17 History Atorvastatin [Lipitor] 80 mg PO HS 10/14/15 09/30/17 History Insulin Glulisine [Apidra] 15 unit SQ TID 11/05/15 09/30/17 History Insulin Glargine [Lantus] 50 unit SQ HS 01/22/17 09/30/17 History Metoprolol Tartrate [Lopressor] 75 mg PO BID #60 tablet 01/24/17 09/30/17 Rx Furosemide [Lasix] 40 mg PO BID 08/15/17 09/30/17 History amLODIPine [Norvasc] 5 mg PO BID 08/15/17 09/30/17 History hydrALAZINE HCL [Apresoline] 50 mg PO BID 08/15/17 09/30/17 History Fluticasone Propionate [Flonase 2 spray EA NOSTRIL DAILY 09/20/17 09/30/17 History Allergy Relief] Lisinopril [Zestril] 20 mg PO BID 09/20/17 09/30/17 History Ranitidine HCl 150 mg PO BID 09/20/17 09/30/17 History Acetaminophen Tab [Tylenol] 650 mg PO Q6HR PRN tab 09/25/17 09/30/17 Rx Allergies Allergy/AdvReac Type Severity Reaction Status Date / Time cephalexin monohydrate Allergy Rash/Hives Verified 09/30/17 08:11 [From Keflex] ciprofloxacin [From Cipro] Allergy Swelling Verified 09/30/17 08:11 ciprofloxacin HCl Allergy Swelling Verified 09/30/17 08:11 [From Cipro] codeine Allergy Unknown Verified 09/30/17 08:11 latex Allergy Itching Verified 09/30/17 08:11 sulfamethoxazole Allergy Itching Verified 09/30/17 08:11 [From Bactrim] trimethoprim [From Bactrim] Allergy Itching Verified 09/30/17 08:11 adhesive tape AdvReac Itching Verified 09/30/17 08:11 Physical Exam Vitals: Vital Signs Temp Pulse Pulse Resp BP BP Pulse Ox 10/02/17 08:00 98.6 F 71 136/63 95 10/02/17 04:00 97.3 F L 65 19 130/53 96 10/02/17 00:00 97.4 F L 66 20 115/57 95 10/01/17 23:26 97.4 F L 66 20 115/57 95 10/01/17 21:27 97.3 F L 68 19 122/94 10/01/17 20:59 97.4 F L 69 19 137/49 10/01/17 20:57 97.4 F L 69 19 137/49 10/01/17 20:47 97.0 F L 76 20 143/75 97 10/01/17 20:00 76 20 10/01/17 18:04 97.4 F L 66 18 140/75 95 10/01/17 16:00 97.1 F L 70 19 140/72 95 10/01/17 15:10 97.1 F L 68 18 146/80 96 10/01/17 15:09 98 F 70 141/57 10/01/17 15:00 97.1 F L 70 142/67 10/01/17 12:00 68 18 136/66 91 L Intake and Output 10/01/17 10/02/17 10/02/17 22:59 06:59 14:59 Intake Total 970 310 400 Output Total 550 1600 Balance 420 -1290 400 Intake: Oral 660 400 Blood Product 310 310 Rc As-1 Unit 310 [id number] Rc As-1 Unit 0 310 [id number] Output: Urine 550 1600 Other: Voiding Method Toilet Toilet # Voids 1 Weight 129.9 kg General appearance: The patient is alert, oriented, in no acute distress. HET: Head is normocephalic and atraumatic. Pupils are equal and reactive. Oropharynx is clear without lesions. Neck: Supple without lymphadenopathy. Trachea midline. Heart: S1 S2. Regular rate and rhythm. Lungs: No crackles or wheezes are heard. Abdomen: Soft, nontender, nondistended with bowel sounds. No peritoneal signs. No palpable organomegaly or masses. Extremities: +1 edema. Neurological: No focal deficits. Strength and sensation are grossly intact. Results CBC & Chem 7: 10/02/17 05:43 10/02/17 05:43 Labs: Abnormal Lab Results - Last 24 Hours (Table) 10/01/17 10/01/17 10/01/17 Range/Units 06:00 11:39 12:34 WBC 15.4 H (3.8-10.6) k/uL RBC 2.32 L (3.80-5.40) m/uL Hgb 6.5 L* (11.4-16.0) gm/dL Hct 21.4 L (34.0-46.0) % MCHC 30.3 L (31.0-37.0) g/dL BUN (7-17) mg/dL Creatinine (0.52-1.04) mg/dL Glucose (74-99) mg/dL POC Glucose (mg/dL) 324 H (75-99) mg/dL ALT (9-52) U/L Total Protein (6.3-8.2) g/dL Albumin (3.5-5.0) g/dL Crossmatch See Detail 10/01/17 10/01/17 10/02/17 Range/Units 17:09 20:40 05:43 WBC (3.8-10.6) k/uL RBC 3.00 L (3.80-5.40) m/uL Hgb 8.6 L D (11.4-16.0) gm/dL Hct 27.3 L (34.0-46.0) % MCHC (31.0-37.0) g/dL BUN (7-17) mg/dL Creatinine (0.52-1.04) mg/dL Glucose (74-99) mg/dL POC Glucose (mg/dL) 194 H 199 H (75-99) mg/dL ALT (9-52) U/L Total Protein (6.3-8.2) g/dL Albumin (3.5-5.0) g/dL Crossmatch 10/02/17 10/02/17 Range/Units 05:43 05:51 WBC (3.8-10.6) k/uL RBC (3.80-5.40) m/uL Hgb (11.4-16.0) gm/dL Hct (34.0-46.0) % MCHC (31.0-37.0) g/dL BUN 80 H* (7-17) mg/dL Creatinine 1.60 H (0.52-1.04) mg/dL Glucose 178 H (74-99) mg/dL POC Glucose (mg/dL) 193 H (75-99) mg/dL ALT 54 H (9-52) U/L Total Protein 5.8 L (6.3-8.2) g/dL Albumin 3.1 L (3.5-5.0) g/dL Crossmatch Assessment and Plan (1) Normocytic normochromic anemia Narrative/Plan: 62-year-old female admitted with shortness of breath with congestive heart failure symptoms with underlying acute on chronic anemia worsened with elevated BUN, underlying stage III chronic kidney disease. Anemia is multifactorial iron deficient receiving B12 iron supplementation. Recent GI evaluation EGD colonoscopy 09/25/17 for anemia and positive guaiac stools reported no evidence of peptic ulcer disease and normal-appearing colon. Possible GI bleed. Small bowel pathology cannot be entirely excluded. Current Visit: Yes Status: Acute Priority: High Code(s): D64.9 - ANEMIA, UNSPECIFIED SNOMED Code(s): 09536537 Plan: 1. Patient was advised small bowel capsule endoscopy but this time she is declining and would like to think about it. For now continue CBC monitoring. GI prophylaxis. Supportive measures. We'll continue to follow with you. We' ll request repeat guaiac stool testing. Thank you for this kind referral and the opportunity to participate in the care of your patient. This consultation was discussed with Dr. Cm. The impression and plan of care have been directed as dictated.
[2017-10-02 11:44] LABS: Glucose,Whole Blood 269 mg/dL (75-99)
[2017-10-02 14:53] VITALS: BMI 44.8
[2017-10-02 16:47] LABS: Glucose,Whole Blood 263 mg/dL (75-99)
--- NOTE | 2017-10-02 17:45 | P.PN ---
Subjective Progress Note Date: 10/02/17 Principal diagnosis: AECHF Patient seen and examined. Patient states she is feeling better today. Her breathing is getting better. She does have intermittent cough. She denies fevers and chills. Objective - Vital Signs Vital signs: Vital Signs Temp 98.6 F 10/02/17 08:00 Pulse 68 10/02/17 12:00 Resp 19 10/02/17 04:00 BP 139/72 10/02/17 12:00 Pulse Ox 96 10/02/17 12:00 Intake & Output 10/01/17 10/02/17 10/02/17 18:59 06:59 18:59 Intake Total 1450 490 500 Output Total 2150 Balance 1450 -1660 500 Weight 129.9 kg 129.9 kg Intake: Oral 1140 180 500 Blood Product 310 310 Rc As-1 Unit 310 [id number] Rc As-1 Unit 310 [id number] Output: Urine 2150 Other: Voiding Method Toilet # Voids 1 1 # Bowel Movements 1 - Exam Gen.: Patient is alert and oriented 3, no acute distress Cardiac vascular: Regular rate and rhythm, S1/S2 Lungs: Clear to auscultation bilaterally no wheezes rales or rhonchi Abdomen: Soft nontender nondistended positive bowel sounds Extremities: Positive edema - Labs CBC & Chem 7: 10/02/17 05:43 10/02/17 05:43 Labs: Abnormal Lab Results - Last 24 Hours (Table) 10/01/17 10/01/17 10/02/17 Range/Units 12:34 20:40 05:43 RBC 3.00 L (3.80-5.40) m/uL Hgb 8.6 L D (11.4-16.0) gm/dL Hct 27.3 L (34.0-46.0) % BUN (7-17) mg/dL Creatinine (0.52-1.04) mg/dL Glucose (74-99) mg/dL POC Glucose (mg/dL) 199 H (75-99) mg/dL ALT (9-52) U/L Total Protein (6.3-8.2) g/dL Albumin (3.5-5.0) g/dL Crossmatch See Detail 10/02/17 10/02/17 10/02/17 Range/Units 05:43 05:51 11:43 RBC (3.80-5.40) m/uL Hgb (11.4-16.0) gm/dL Hct (34.0-46.0) % BUN 80 H* (7-17) mg/dL Creatinine 1.60 H (0.52-1.04) mg/dL Glucose 178 H (74-99) mg/dL POC Glucose (mg/dL) 193 H 269 H (75-99) mg/dL ALT 54 H (9-52) U/L Total Protein 5.8 L (6.3-8.2) g/dL Albumin 3.1 L (3.5-5.0) g/dL Crossmatch 10/02/17 Range/Units 16:42 RBC (3.80-5.40) m/uL Hgb (11.4-16.0) gm/dL Hct (34.0-46.0) % BUN (7-17) mg/dL Creatinine (0.52-1.04) mg/dL Glucose (74-99) mg/dL POC Glucose (mg/dL) 263 H (75-99) mg/dL ALT (9-52) U/L Total Protein (6.3-8.2) g/dL Albumin (3.5-5.0) g/dL Crossmatch Assessment and Plan Assessment: Acute exacerbation of CHF Symptomatic anemia Obstructive sleep apnea Pulmonary hypertension O2 to maintain saturation greater than or equal to 90% Bronchodilators PRN Transfuse for hemoglobin less than 7 Diuresis I's and O's and daily weights Encourage ambulation Incentive spirometry and pulmonary hygiene GI and DVT prophylaxis
[2017-10-02] MEDS: ATORVASTATIN 80 MG TAB PO SCH (20:17)
[2017-10-02] MEDS: INSULIN DETEMIR 100 UNIT/ML 10 ML VIAL SQ SCH (21:03)
[2017-10-02 22:01] LABS: Glucose,Whole Blood 264 mg/dL (75-99)
[2017-10-03 06:36] LABS: Glucose,Whole Blood 314 mg/dL (75-99)
[2017-10-03 06:39] LABS: Calcium 8.9 mg/dL (8.4-10.2); Potassium 5.2 mmol/L (3.5-5.1)
[2017-10-03] MEDS: INSULIN ASPART 100 UNIT/ML 1 ML 10 ML VIAL SQ SCH ×7 (07:55→21:38)
[2017-10-03] MEDS: METOPROLOL TARTRATE 25 MG TAB PO SCH ×2 (07:55→20:59)
[2017-10-03] MEDS: hydrALAZINE HCL 50 MG TAB PO SCH ×2 (07:56→20:59)
[2017-10-03] MEDS: ASPIRIN 81 MG PO SCH (07:56)
[2017-10-03] MEDS: amLODIPine 5 MG TAB PO SCH ×2 (07:56→20:59)
[2017-10-03] MEDS: LORATADINE 10 MG TAB PO SCH (07:57)
[2017-10-03] MEDS: FLUTICASONE 50MCG/SPRAY NASAL 16GM EA NOSTRIL SCH (07:57)
[2017-10-03] MEDS: FUROSEMIDE 10 MG/ML 10 ML VIAL IV SCH (07:57)
[2017-10-03] MEDS: FAMOTIDINE 20 MG TAB PO SCH (07:57)
[2017-10-03] MEDS: ISOSORBIDE MONONITRATE ER 30 MG TAB.ER.24H PO SCH (07:57)
[2017-10-03] MEDS: SODIUM FERRIC GLUCONAT-SUCROSE 125 MG in SODIUM CHLORIDE 0.9% 100 ML IVPB SCH (10:20)
--- NOTE | 2017-10-03 10:39 | P.PN ---
Subjective Progress Note Date: 10/03/17 Principal diagnosis: Acute exacerbation of CHF Patient seen and examined. Patient states she is starting to feel better today. Her breathing is better. Her lower extremity edema is improving. She is on 3 L nasal cannula. She states she has been told in the past that she needs to have a sleep study. She is willing to do this as an outpatient. She is hoping to go home soon. Objective - Vital Signs Vital signs: Vital Signs Temp 97.3 F L 10/03/17 04:00 Pulse 63 10/03/17 04:00 Resp 19 10/03/17 04:00 BP 132/61 10/03/17 04:00 Pulse Ox 96 10/03/17 04:00 Intake & Output 10/02/17 10/03/17 10/03/17 18:59 06:59 18:59 Intake Total 800 118 Output Total 850 1000 Balance -50 -1000 118 Weight 129.9 kg 128.2 kg Intake: Oral 800 118 Output: Urine 850 1000 Other: Voiding Method Toilet # Voids 1 # Bowel Movements 1 - Exam Gen.: Patient is alert and oriented 3, no acute distress Cardiac vascular: Regular rate and rhythm, S1/S2 Lungs: Clear to auscultation bilaterally no wheezes rales or rhonchi Abdomen: Soft nontender nondistended positive bowel sounds Extremities: Positive edema - Labs CBC & Chem 7: 10/02/17 05:43 10/03/17 05:39 Labs: Abnormal Lab Results - Last 24 Hours (Table) 10/02/17 10/02/17 10/02/17 Range/Units 11:43 16:42 20:58 Potassium (3.5-5.1) mmol/L BUN (7-17) mg/dL Creatinine (0.52-1.04) mg/dL Glucose (74-99) mg/dL POC Glucose (mg/dL) 269 H 263 H 264 H (75-99) mg/dL 10/03/17 10/03/17 Range/Units 05:39 06:32 Potassium 5.2 H (3.5-5.1) mmol/L BUN 71 H (7-17) mg/dL Creatinine 1.65 H (0.52-1.04) mg/dL Glucose 263 H (74-99) mg/dL POC Glucose (mg/dL) 314 H (75-99) mg/dL Assessment and Plan Assessment: Acute exacerbation of CHF, diastolic Pulmonary edema Symptomatic anemia Obstructive sleep apnea suspected Pulmonary hypertension, mild RVSP 41 mmHg Normocytic anemia Possible GIB ILANA secondary to ATN Cardiorenal syndrome CKD 3 DM2 ASCAD Hypertension Dyslipidemia O2 to maintain saturation greater than or equal to 90% Bronchodilators PRN Transfuse for hemoglobin less than 7 Diuresis I's and O's and daily weights Encourage ambulation Capsule endoscopy per GI recommended Incentive spirometry and pulmonary hygiene GI and DVT prophylaxis Repeat CXR today Replace iron Outpatient PFT and PSG recommended Increase Levemir, monitor BS Home O2 evaluation prior to discharge PT consult
--- NOTE | 2017-10-03 11:16 | P.PN ---
Subjective Patient is seen in follow-up for acute kidney injury on chronic kidney disease. Patient has chronic kidney disease stage III with baseline creatinine in the range of 1.2-1.3 from 2016. Etiology is diabetic kidney disease and nephrosclerosis. Renal function is relatively stable today with creatinine at 1.65. She was noted to have hemoglobin of 6.5 as of October 01 for which she did receive blood transfusion. She denies any melena or hematochezia. No hematuria. She is currently maintained on Lasix 80 mg IV twice daily. Admits to good urine output. Edema is improving. Admits to good urine output. Vital signs are stable. General: The patient appeared well nourished and normally developed. HEENT: Head exam is unremarkable. Neck is without jugular venous distension. LUNGS: Lungs are clear to auscultation and percussion. Breath sounds decreased. HEART: Rate and Rhythm are regular. First and second heart sounds normal. No murmurs, rubs or gallops. ABDOMEN: Abdominal exam reveals normal bowel sounds. Non-tender and non- distended. No evidence of peritonitis. EXTREMITITES: Trace edema. Objective - Vital Signs Vital signs: Vital Signs Temp 97.2 F L 10/03/17 08:00 Pulse 68 10/03/17 08:00 Resp 19 10/03/17 08:00 BP 150/71 10/03/17 08:00 Pulse Ox 94 L 10/03/17 08:00 Intake & Output 10/02/17 10/03/17 10/03/17 18:59 06:59 18:59 Intake Total 800 118 Output Total 850 1000 Balance -50 -1000 118 Weight 129.9 kg 128.2 kg Intake: Oral 800 118 Output: Urine 850 1000 Other: Voiding Method Toilet # Voids 1 # Bowel Movements 1 - Labs CBC & Chem 7: 10/02/17 05:43 10/03/17 05:39 Labs: Abnormal Lab Results - Last 24 Hours (Table) 10/02/17 10/02/17 10/02/17 Range/Units 11:43 16:42 20:58 Potassium (3.5-5.1) mmol/L BUN (7-17) mg/dL Creatinine (0.52-1.04) mg/dL Glucose (74-99) mg/dL POC Glucose (mg/dL) 269 H 263 H 264 H (75-99) mg/dL 10/03/17 10/03/17 Range/Units 05:39 06:32 Potassium 5.2 H (3.5-5.1) mmol/L BUN 71 H (7-17) mg/dL Creatinine 1.65 H (0.52-1.04) mg/dL Glucose 263 H (74-99) mg/dL POC Glucose (mg/dL) 314 H (75-99) mg/dL Assessment and Plan Plan: Assessment: #1. Nonoliguric acute kidney injury secondary to ATN secondary to cardiorenal syndrome as well as anemia. Creatinine relatively stable at 1.65 today. #2. Chronic kidney disease stage III secondary to diabetic kidney disease and nephrosclerosis with baseline creatinine near 1.2-1.3. #3. Acute anemia status post blood transfusion on October 01. Iron deficiency noted as well. #4. Diabetes mellitus. #5. Volume overload. Improved. #6. Diastolic CHF. #7. Elevated BUN due to acute kidney injury. Also concern for underlying GI bleed. Hematology following. Plan: Discontinue IV Lasix. Start Demadex 40 mg once daily. Maintain low salt diet and 1500 mL fluid restriction. Maintain Aranesp. Ferrlicit 125 mg IV daily for 3 days. Second dose today. Avoid nephrotoxic agents and hypotensive episodes. Repeat electrolytes in the morning.
[2017-10-03 11:53] LABS: Glucose,Whole Blood 153 mg/dL (75-99)
[2017-10-03] MEDS: INSULIN DETEMIR 100 UNIT/ML 10 ML VIAL SQ SCH ×2 (12:21→22:37)
[2017-10-03] MEDS: TORSEMIDE 20 MG TAB PO SCH (12:21)
--- NOTE | 2017-10-03 12:45 | P.PN ---
Subjective Progress Note Date: 10/03/17 Principal diagnosis: Anemia Denies hematemesis hematochezia melena. Bowel movement yesterday, normal in appearance unfortunately was not sent for guaiac testing. Denies abdominal pain. Receiving IV iron. Transfused 2 units of blood since admission. Hemoglobin 8.6. Patient is agreeable for capsule endoscopy. Objective - Vital Signs Vital signs: Vital Signs Temp 97.2 F L 10/03/17 08:00 Pulse 68 10/03/17 08:00 Resp 19 10/03/17 08:00 BP 150/71 10/03/17 08:00 Pulse Ox 94 L 10/03/17 08:00 Intake & Output 10/02/17 10/03/17 10/03/17 18:59 06:59 18:59 Intake Total 800 118 Output Total 850 1000 Balance -50 -1000 118 Weight 129.9 kg 128.2 kg Intake: Oral 800 118 Output: Urine 850 1000 Other: Voiding Method Toilet # Voids 1 # Bowel Movements 1 - Exam General appearance: The patient is alert, oriented, in no acute distress. HET: Head is normocephalic and atraumatic. Pupils are equal and reactive. Oropharynx is clear without lesions. Neck: Supple without lymphadenopathy. Trachea midline. Heart: S1 S2. Regular rate and rhythm. Lungs: No crackles or wheezes are heard. Abdomen: Soft, nontender, nondistended with bowel sounds. No peritoneal signs. No palpable organomegaly or masses. Extremities: Normal skin color and turgor. No cyanosis, rash, ulceration, clubbing, or edema. Radial and pedal pulses are 2/4 bilaterally. Neurological: No focal deficits. Strength and sensation are grossly intact. - Labs CBC & Chem 7: 10/02/17 05:43 10/03/17 05:39 Labs: Abnormal Lab Results - Last 24 Hours (Table) 10/02/17 10/02/17 10/03/17 Range/Units 16:42 20:58 05:39 Potassium 5.2 H (3.5-5.1) mmol/L BUN 71 H (7-17) mg/dL Creatinine 1.65 H (0.52-1.04) mg/dL Glucose 263 H (74-99) mg/dL POC Glucose (mg/dL) 263 H 264 H (75-99) mg/dL 10/03/17 10/03/17 Range/Units 06:32 11:50 Potassium (3.5-5.1) mmol/L BUN (7-17) mg/dL Creatinine (0.52-1.04) mg/dL Glucose (74-99) mg/dL POC Glucose (mg/dL) 314 H 153 H (75-99) mg/dL Assessment and Plan (1) Normocytic normochromic anemia Narrative/Plan: 62-year-old female admitted with shortness of breath with congestive heart failure symptoms with underlying acute on chronic anemia worsened with elevated BUN, underlying stage III chronic kidney disease. Anemia is multifactorial iron deficient receiving B12 iron supplementation. Recent GI evaluation EGD colonoscopy 09/25/17 for anemia and positive guaiac stools reported no evidence of peptic ulcer disease and normal-appearing colon. Possible GI bleed. Small bowel pathology cannot be entirely excluded. Current Visit: Yes Status: Acute Priority: High Code(s): D64.9 - ANEMIA, UNSPECIFIED SNOMED Code(s): 86033024 Plan: 1. We'll schedule capsule endoscopy tomorrow a.m. Clear liquid diet for dinner. Nothing by mouth after midnight. Continue scheduled medications. The homoeopath has discussed the risks, benefits and alternative therapies for the above-mentioned procedure and for both sedation/analgesia as well as necessary blood product administration, if indicated, as they pertain to this patient. The patient has indicated understanding and acceptance of the risks and procedures discussed. Assessment and plan a care discussed with Dr. Villafana
--- NOTE | 2017-10-03 14:28 | XR ---
EXAMINATION TYPE: XR chest 2V DATE OF EXAM: 10/03/2017 COMPARISON: 09/30/2017 HISTORY: Pulmonary edema and congestive heart failure TECHNIQUE: Frontal and lateral views of the chest are obtained. FINDINGS: The previously seen pulmonary vascular congestion and interstitial edema has resolved in t he interim. Trace pleural effusions blunt the costophrenic angles. Mild multilevel degenerative piper es of the thoracic spine are noted. Cardiomediastinal silhouette is enlarged. IMPRESSION: Interval resolution of the previously seen mild pulmonary vascular congestion and inters titial edema.
--- NOTE | 2017-10-03 15:15 | P.PN ---
Subjective Progress Note Date: 10/03/17 Principal diagnosis: This is a 62-year-old female who was just recently discharged from the hospital, she has a known history of coronary artery disease, hypertension, chronic kidney disease, presented to the hospital with symptoms of dyspnea. It was felt that the dyspnea and the associated peripheral edema or secondary to her diastolic dysfunction. Patient also stated that she had a syncopal episode in the EMS although there are no record of that EMS documentation. Echocardiogram with Doppler study was performed earlier this month which revealed preserved systolic function with mild mitral and tricuspid regurg, mild pulmonary hypertension. Patient did receive iron infusion during the prior admission because of anemia related to chronic kidney disease. Patient was seen and examined this morning still felt short of breath, but does state that she feels better than her presentation here. At pressure 136/60 with a heart rate in the 60s, 91% on 4 L of oxygen. Her weight is unchanged from yesterday. Sodium 138, potassium 5.9, BUN 78, creatinine 1.8. Hemoglobin today is 6.5. Objective - Vital Signs Vital signs: Vital Signs Temp 97.2 F L 10/03/17 08:00 Pulse 65 10/03/17 12:00 Resp 19 10/03/17 12:00 BP 146/66 10/03/17 12:00 Pulse Ox 97 10/03/17 12:00 Intake & Output 10/02/17 10/03/17 10/03/17 18:59 06:59 18:59 Intake Total 800 698 Output Total 850 1000 Balance -50 -1000 698 Weight 129.9 kg 128.2 kg Intake: Oral 800 698 Output: Urine 850 1000 Other: Voiding Method Toilet # Voids 1 # Bowel Movements 1 - Exam PHYSICAL EXAMINATION: HEENT: Head is atraumatic, normocephalic. Pupils equal, round. Neck is supple. There is no elevated jugular venous pressure. HEART EXAMINATION: Heart S1 and S2 systolic murmur is heard. CHEST EXAMINATION: Circumflex clear with mild diminished air entry to the bases. ABDOMEN: Soft, nontender. Bowel sounds are heard. No organomegaly noted. EXTREMITIES: 2+ peripheral pulses with 1 plus evidence of peripheral edema and no calf tenderness noted. NEUROLOGIC patient is awake, alert and oriented -3. . - Labs CBC & Chem 7: 10/02/17 05:43 10/03/17 05:39 Labs: Abnormal Lab Results - Last 24 Hours (Table) 10/02/17 10/02/17 10/03/17 Range/Units 16:42 20:58 05:39 Potassium 5.2 H (3.5-5.1) mmol/L BUN 71 H (7-17) mg/dL Creatinine 1.65 H (0.52-1.04) mg/dL Glucose 263 H (74-99) mg/dL POC Glucose (mg/dL) 263 H 264 H (75-99) mg/dL 10/03/17 10/03/17 Range/Units 06:32 11:50 Potassium (3.5-5.1) mmol/L BUN (7-17) mg/dL Creatinine (0.52-1.04) mg/dL Glucose (74-99) mg/dL POC Glucose (mg/dL) 314 H 153 H (75-99) mg/dL Assessment and Plan Plan: Assessment and plan #1 diastolic congestive heart failure acute on chronic, exasperated by anemia #2 anemia #3 chronic kidney disease #4 hyperkalemia # 5 history of coronary artery disease #6 hypertension #7 hyperlipidemia #8 diabetes Plan Cardiology's perspective, patient may be discharged home once cleared by the primary. We will make her a follow-up appointment in the office post discharge. DNP note has been reviewed, I agree with a documented findings and plan of care. Patient was seen and examined.
[2017-10-03 16:48] LABS: Glucose,Whole Blood 166 mg/dL (75-99)
[2017-10-03] MEDS ORDERED: MAGNESIUM CITRATE 296 ML BOTTLE PO ONE (17:00)
[2017-10-03] MEDS: ATORVASTATIN 80 MG TAB PO SCH (20:59)
[2017-10-03 21:49] LABS: Glucose,Whole Blood 131 mg/dL (75-99)
--- NOTE | 2017-10-03 22:16 | PN ---
PROGRESS NOTE DATE OF SERVICE: 10/03/2017 SUBJECTIVE: A 62-year-old white female admitted to the hospital with severe anemia, coronary artery disease, chronic kidney disease, hypertension and severe dyspnea. Two units of blood have been given. Her hemoglobin remains in the 8.6-9.6 range and she is going to be scheduled for EGD in the morning. Temp 97.2, pulse 60s, respirations 19-22, blood pressure 140s/60s, O2 97% on 2L. ENDOCRINE: BMI is over 40. PSYCH: Fair mood and affect, giving appropriate answers. NEUROLOGIC: Alert and oriented x3. HEART: S1, S2. EXTREMITIES: 2+ pedal edema, 2+ bilateral peripheral pulses. Potassium 5.2, BUN 71, creatinine 1.65, glucose 263. ASSESSMENT: 1. Diastolic congestive heart failure, acute on chronic. 2. Severe anemia. 3. Chronic kidney disease. 4. Hyperkalemia. 5. Coronary artery disease. 6. Hypertension. 7. Dyslipidemia. 8. Diabetes. Continue current treatment. Possible discharge home after EGD tomorrow. MMODL / IJN: [id number] /
[2017-10-04 06:17] LABS: Basophils % (A) 0 %; Eosinophils # (A) 0.4 k/uL (0-0.7); Eosinophils % (A) 4 %; HCT 30.2 % (34.0-46.0); HGB 9.9 gm/dL (11.4-16.0); Lymphocytes # (A) 1.5 k/uL (1.0-4.8); Lymphocytes % (A) 14 %; MCH 28.8 pg (25.0-35.0); MCHC 32.8 g/dL (31.0-37.0); MCV 87.9 fL (80.0-100.0); Mean Platelet Volume 6.9; Monocytes # (A) 0.6 k/uL (0-1.0); Monocytes % (A) 5 %; Neutrophils # (A) 7.8 k/uL (1.3-7.7); Neutrophils % (A) 75 %; Platelet Count 317 k/uL (150-450); Poikilocytosis Slight; RBC 3.43 m/uL (3.80-5.40); RDW 14.4 % (11.5-15.5); WBC 10.5 k/uL (3.8-10.6)
[2017-10-04] MEDS: INSULIN ASPART 100 UNIT/ML 1 ML 10 ML VIAL SQ SCH ×7 (06:17→21:53)
[2017-10-04 06:18] LABS: Glucose,Whole Blood 121 mg/dL (75-99)
[2017-10-04 06:39] LABS: Albumin 3.3 g/dL (3.5-5.0); Calcium 9.6 mg/dL (8.4-10.2); Total Bilirubin 0.4 mg/dL (0.2-1.3)
[2017-10-04] MEDS ORDERED: SIMETHICONE 40 MG/0.6 ML DROPS 2,000 MG/30 ML BOTTLE PO ONE (07:34)
[2017-10-04] MEDS: FLUTICASONE 50MCG/SPRAY NASAL 16GM EA NOSTRIL SCH (08:27)
--- NOTE | 2017-10-04 10:39 | P.PN ---
Subjective Progress Note Date: 10/04/17 Principal diagnosis: This is a 62-year-old female who was just recently discharged from the hospital, she has a known history of coronary artery disease, hypertension, chronic kidney disease, presented to the hospital with symptoms of dyspnea. It was felt that the dyspnea and the associated peripheral edema or secondary to her diastolic dysfunction. Patient also stated that she had a syncopal episode in the EMS although there are no record of that EMS documentation. Echocardiogram with Doppler study was performed earlier this month which revealed preserved systolic function with mild mitral and tricuspid regurg, mild pulmonary hypertension. Patient did receive iron infusion during the prior admission because of anemia related to chronic kidney disease. Patient was seen and examined this morning currently undergoing a capsule study. Hemodynamically stable. Edema much improved, denies any shortness of breath. Objective - Vital Signs Vital signs: Vital Signs Temp 97 F L 10/04/17 08:00 Pulse 70 10/04/17 08:00 Resp 17 10/04/17 08:00 BP 132/78 10/04/17 08:00 Pulse Ox 97 10/04/17 08:00 Intake & Output 10/03/17 10/04/17 10/04/17 18:59 06:59 18:59 Intake Total 798 Output Total 1200 Balance 798 -1200 Weight 126.2 kg Intake: Intake, IV Titration 100 Amount Sodium Ferric Gluconat- 100 Sucrose 125 mg In Sodium Chloride 0.9% 100 ml @ 100 mls/hr IVPB DAILY [facility] Rx#:[id number] Oral 698 Output: Urine 1200 Other: Voiding Method Toilet Toilet # Voids 1 - Exam PHYSICAL EXAMINATION: HEENT: Head is atraumatic, normocephalic. Pupils equal, round. Neck is supple. There is no elevated jugular venous pressure. HEART EXAMINATION: Heart S1 and S2 systolic murmur is heard. CHEST EXAMINATION: Circumflex clear with mild diminished air entry to the bases. ABDOMEN: Soft, nontender. Bowel sounds are heard. No organomegaly noted. EXTREMITIES: 2+ peripheral pulses with 1 plus evidence of peripheral edema and no calf tenderness noted. NEUROLOGIC patient is awake, alert and oriented -3. . - Labs CBC & Chem 7: 10/04/17 05:20 10/04/17 05:20 Labs: Abnormal Lab Results - Last 24 Hours (Table) 10/03/17 10/03/17 10/03/17 Range/Units 11:50 16:45 21:37 RBC (3.80-5.40) m/uL Hgb (11.4-16.0) gm/dL Hct (34.0-46.0) % Neutrophils # (1.3-7.7) k/uL Carbon Dioxide (22-30) mmol/L BUN (7-17) mg/dL Creatinine (0.52-1.04) mg/dL Glucose (74-99) mg/dL POC Glucose (mg/dL) 153 H 166 H 131 H (75-99) mg/dL Total Protein (6.3-8.2) g/dL Albumin (3.5-5.0) g/dL 10/04/17 10/04/17 10/04/17 Range/Units 05:20 05:20 06:04 RBC 3.43 L (3.80-5.40) m/uL Hgb 9.9 L (11.4-16.0) gm/dL Hct 30.2 L (34.0-46.0) % Neutrophils # 7.8 H (1.3-7.7) k/uL Carbon Dioxide 31 H (22-30) mmol/L BUN 61 H (7-17) mg/dL Creatinine 1.35 H (0.52-1.04) mg/dL Glucose 110 H (74-99) mg/dL POC Glucose (mg/dL) 121 H (75-99) mg/dL Total Protein 6.0 L (6.3-8.2) g/dL Albumin 3.3 L (3.5-5.0) g/dL Assessment and Plan Plan: Assessment and plan #1 diastolic congestive heart failure acute on chronic, exasperated by anemia #2 anemia, capsule study in progress. #3 chronic kidney disease #4 hyperkalemia # 5 history of coronary artery disease #6 hypertension #7 hyperlipidemia #8 diabetes Plan Cardiology's perspective, patient may be discharged home once cleared by the primary. We will make her a follow-up appointment in the office with Dr. Núñez post discharge. DNP note has been reviewed, I agree with a documented findings and plan of care. Patient was seen and examined.
--- NOTE | 2017-10-04 11:38 | P.PN ---
Subjective Patient is seen in follow-up for acute kidney injury on chronic kidney disease. Patient has chronic kidney disease stage III with baseline creatinine in the range of 1.2-1.3 from January 2017. Etiology is diabetic kidney disease and nephrosclerosis. Renal function is improved today with creatinine at 1.35. She was noted to have hemoglobin of 6.5 as of October 01 for which she did receive blood transfusion. She is currently undergoing a capsule endoscopy. She denies any melena or hematochezia. No hematuria. She is currently maintained on Demadex 40 mg once daily. Admits to good urine output. Edema is improving. Admits to good urine output. Vital signs are stable. General: The patient appeared well nourished and normally developed. HEENT: Head exam is unremarkable. Neck is without jugular venous distension. LUNGS: Lungs are clear to auscultation and percussion. Breath sounds decreased. HEART: Rate and Rhythm are regular. First and second heart sounds normal. No murmurs, rubs or gallops. ABDOMEN: Abdominal exam reveals normal bowel sounds. Non-tender and non- distended. No evidence of peritonitis. EXTREMITITES: Trace edema. Objective - Vital Signs Vital signs: Vital Signs Temp 97 F L 10/04/17 08:00 Pulse 70 10/04/17 08:00 Resp 17 10/04/17 08:00 BP 132/78 10/04/17 08:00 Pulse Ox 97 10/04/17 08:00 Intake & Output 10/03/17 10/04/17 10/04/17 18:59 06:59 18:59 Intake Total 798 Output Total 1200 Balance 798 -1200 Weight 126.2 kg Intake: Intake, IV Titration 100 Amount Sodium Ferric Gluconat- 100 Sucrose 125 mg In Sodium Chloride 0.9% 100 ml @ 100 mls/hr IVPB DAILY [facility] Rx#:[id number] Oral 698 Output: Urine 1200 Other: Voiding Method Toilet Toilet # Voids 1 - Labs CBC & Chem 7: 10/04/17 05:20 10/04/17 05:20 Labs: Abnormal Lab Results - Last 24 Hours (Table) 10/03/17 10/03/17 10/03/17 Range/Units 11:50 16:45 21:37 RBC (3.80-5.40) m/uL Hgb (11.4-16.0) gm/dL Hct (34.0-46.0) % Neutrophils # (1.3-7.7) k/uL Carbon Dioxide (22-30) mmol/L BUN (7-17) mg/dL Creatinine (0.52-1.04) mg/dL Glucose (74-99) mg/dL POC Glucose (mg/dL) 153 H 166 H 131 H (75-99) mg/dL Total Protein (6.3-8.2) g/dL Albumin (3.5-5.0) g/dL 10/04/17 10/04/17 10/04/17 Range/Units 05:20 05:20 06:04 RBC 3.43 L (3.80-5.40) m/uL Hgb 9.9 L (11.4-16.0) gm/dL Hct 30.2 L (34.0-46.0) % Neutrophils # 7.8 H (1.3-7.7) k/uL Carbon Dioxide 31 H (22-30) mmol/L BUN 61 H (7-17) mg/dL Creatinine 1.35 H (0.52-1.04) mg/dL Glucose 110 H (74-99) mg/dL POC Glucose (mg/dL) 121 H (75-99) mg/dL Total Protein 6.0 L (6.3-8.2) g/dL Albumin 3.3 L (3.5-5.0) g/dL Assessment and Plan Plan: Assessment: #1. Nonoliguric acute kidney injury secondary to ATN secondary to cardiorenal syndrome as well as anemia. Creatinine improved to 1.35 today. #2. Chronic kidney disease stage III secondary to diabetic kidney disease and nephrosclerosis with baseline creatinine near 1.2-1.3. #3. Acute anemia status post blood transfusion on October 01. Iron deficiency noted as well. Currently undergoing capsule endoscopy. #4. Diabetes mellitus. #5. Volume overload. Improved. #6. Diastolic CHF. #7. Elevated BUN due to acute kidney injury. Also concern for underlying GI bleed. Hematology following. Plan: Continue Demadex 40 mg once daily. Maintain low salt diet and 1500 mL fluid restriction. Maintain Aranesp. Ferrlicit 125 mg IV daily for 3 days. Third dose today. Avoid nephrotoxic agents and hypotensive episodes. Repeat electrolytes in the morning.
[2017-10-04] MEDS: ASPIRIN 81 MG PO SCH (11:50)
[2017-10-04] MEDS: amLODIPine 5 MG TAB PO SCH ×2 (11:50→21:41)
[2017-10-04] MEDS: METOPROLOL TARTRATE 25 MG TAB PO SCH ×2 (11:50→21:41)
[2017-10-04] MEDS: hydrALAZINE HCL 50 MG TAB PO SCH ×2 (11:51→21:41)
[2017-10-04] MEDS: TORSEMIDE 20 MG TAB PO SCH (11:51)
[2017-10-04] MEDS: LORATADINE 10 MG TAB PO SCH (11:51)
[2017-10-04] MEDS: SODIUM FERRIC GLUCONAT-SUCROSE 125 MG in SODIUM CHLORIDE 0.9% 100 ML IVPB SCH (11:51)
[2017-10-04] MEDS: FAMOTIDINE 20 MG TAB PO SCH (11:51)
[2017-10-04] MEDS: ISOSORBIDE MONONITRATE ER 30 MG TAB.ER.24H PO SCH (11:51)
[2017-10-04 11:52] LABS: Glucose,Whole Blood 178 mg/dL (75-99)
--- NOTE | 2017-10-04 16:25 | P.PN ---
Subjective Progress Note Date: 10/04/17 Principal diagnosis: Acute exacerbation of CHF Patient seen and examined. Patient states she doesn't feel as well today. She is undergoing capsule endoscopy. She states she didn't sleep well last night. She states her breathing is little bit better today. She denies fevers and chills. Objective - Vital Signs Vital signs: Vital Signs Temp 97.6 F 10/04/17 15:06 Pulse 77 10/04/17 15:06 Resp 17 10/04/17 15:06 BP 144/90 10/04/17 15:06 Pulse Ox 93 L 10/04/17 15:40 Intake & Output 10/03/17 10/04/17 10/04/17 18:59 06:59 18:59 Intake Total 798 340 Output Total 1200 Balance 798 -1200 340 Weight 126.2 kg Intake: Intake, IV Titration 100 100 Amount Sodium Ferric Gluconat- 100 100 Sucrose 125 mg In Sodium Chloride 0.9% 100 ml @ 100 mls/hr IVPB DAILY [facility] Rx#:[id number] Oral 698 240 Output: Urine 1200 Other: Voiding Method Toilet Toilet # Voids 1 - Exam Gen.: Patient is alert and oriented 3, no acute distress Cardiac vascular: Regular rate and rhythm, S1/S2 Lungs: Clear to auscultation bilaterally no wheezes rales or rhonchi Abdomen: Soft nontender nondistended positive bowel sounds Extremities: Positive edema - Labs CBC & Chem 7: 10/04/17 05:20 10/04/17 05:20 Labs: Abnormal Lab Results - Last 24 Hours (Table) 10/03/17 10/03/17 10/04/17 Range/Units 16:45 21:37 05:20 RBC 3.43 L (3.80-5.40) m/uL Hgb 9.9 L (11.4-16.0) gm/dL Hct 30.2 L (34.0-46.0) % Neutrophils # 7.8 H (1.3-7.7) k/uL Carbon Dioxide (22-30) mmol/L BUN (7-17) mg/dL Creatinine (0.52-1.04) mg/dL Glucose (74-99) mg/dL POC Glucose (mg/dL) 166 H 131 H (75-99) mg/dL Total Protein (6.3-8.2) g/dL Albumin (3.5-5.0) g/dL 10/04/17 10/04/17 10/04/17 Range/Units 05:20 06:04 11:47 RBC (3.80-5.40) m/uL Hgb (11.4-16.0) gm/dL Hct (34.0-46.0) % Neutrophils # (1.3-7.7) k/uL Carbon Dioxide 31 H (22-30) mmol/L BUN 61 H (7-17) mg/dL Creatinine 1.35 H (0.52-1.04) mg/dL Glucose 110 H (74-99) mg/dL POC Glucose (mg/dL) 121 H 178 H (75-99) mg/dL Total Protein 6.0 L (6.3-8.2) g/dL Albumin 3.3 L (3.5-5.0) g/dL Assessment and Plan Assessment: Acute exacerbation of CHF, diastolic Pulmonary edema Symptomatic anemia Obstructive sleep apnea suspected Pulmonary hypertension, mild RVSP 41 mmHg Normocytic anemia Possible GIB ILANA secondary to ATN Cardiorenal syndrome CKD 3 DM2 ASCAD Hypertension Dyslipidemia O2 to maintain saturation greater than or equal to 90% Bronchodilators PRN Transfuse for hemoglobin less than 7 Diuresis I's and O's and daily weights Encourage ambulation Capsule endoscopy per GI recommended Incentive spirometry and pulmonary hygiene GI and DVT prophylaxis Replace iron Outpatient PFT and PSG recommended Increase Levemir, monitor BS Home O2 evaluation prior to discharge PT consult
[2017-10-04 17:05] LABS: Glucose,Whole Blood 222 mg/dL (75-99)
[2017-10-04 20:52] LABS: Glucose,Whole Blood 327 mg/dL (75-99)
[2017-10-04] MEDS: diphenhydrAMINE 2% CREAM 28.4 GM TUBE TOPICAL PRN (21:40)
[2017-10-04] MEDS: ATORVASTATIN 80 MG TAB PO SCH (21:41)
[2017-10-04] MEDS: INSULIN DETEMIR 100 UNIT/ML 10 ML VIAL SQ SCH (21:41)
--- NOTE | 2017-10-04 22:59 | PN ---
PROGRESS NOTE A 62-year-old white female admitted with severe anemia triggering CHF and COPD. The patient is post endoscopy today. Hemoglobin is 9.9. Possible discharge home tomorrow after the EGD is done today. CARDIOVASCULAR: S1, S2. LUNGS: Clear. GI: Soft. HEMATOLOGY: Negative Homans'. ASSESSMENT: 1. Severe anemia. 2. Congestive heart failure. 3. Chronic obstructive pulmonary disease. Possible discharge home tomorrow. MMODL / IJN: [id number] /
[2017-10-05 05:53] LABS: Glucose,Whole Blood 241 mg/dL (75-99)
[2017-10-05 06:43] LABS: Calcium 9.4 mg/dL (8.4-10.2); Magnesium 2.2 mg/dL (1.6-2.3)
[2017-10-05] MEDS: INSULIN ASPART 100 UNIT/ML 1 ML 10 ML VIAL SQ SCH ×7 (07:08→22:13)
[2017-10-05] MEDS: TORSEMIDE 20 MG TAB PO SCH (09:21)
[2017-10-05] MEDS: ISOSORBIDE MONONITRATE ER 30 MG TAB.ER.24H PO SCH (09:21)
[2017-10-05] MEDS: hydrALAZINE HCL 50 MG TAB PO SCH ×2 (09:21→20:13)
[2017-10-05] MEDS: LORATADINE 10 MG TAB PO SCH (09:21)
[2017-10-05] MEDS: amLODIPine 5 MG TAB PO SCH ×2 (09:22→20:12)
[2017-10-05] MEDS: FAMOTIDINE 20 MG TAB PO SCH (09:22)
[2017-10-05] MEDS: ASPIRIN 81 MG PO SCH (09:22)
[2017-10-05] MEDS: METOPROLOL TARTRATE 25 MG TAB PO SCH ×2 (09:22→20:13)
[2017-10-05] MEDS: FLUTICASONE 50MCG/SPRAY NASAL 16GM EA NOSTRIL SCH (09:23)
[2017-10-05] MEDS: SODIUM FERRIC GLUCONAT-SUCROSE 125 MG in SODIUM CHLORIDE 0.9% 100 ML IVPB SCH (10:55)
--- NOTE | 2017-10-05 11:41 | PN ---
PROGRESS NOTE DATE OF SERVICE: 10/05/2017 Patient is a 62-year-old female seen sitting up in bed, awake, alert, feeling better today, denies any shortness of breath. Has a low-grade temp of 99.4, is hemodynamically stable, in no acute distress. PHYSICAL EXAM: Vital signs, temp 99.4, heart rate of 73, respiratory rate is 18, blood pressure is 143/60, O2 sats 94% on 2 L O2 via nasal cannula. HEENT: Head is normocephalic, atraumatic. Neck is supple. Trachea is midline. LUNGS: Essentially clear, but diminished. HEART: S1, S2 heard. Not tachycardic. ABDOMEN: Soft. Bowel sounds are heard. Extremities with trace edema. NEUROLOGIC: Patient is awake, alert, oriented. LABS: Sodium is 140, potassium 6.0, chloride is 103, CO2 is 29, anion gap is 8, BUN 55, creatinine is 1.46, glucose is 228, calcium is 9.4, magnesium is 2.2. IMPRESSION: 1. Acute exacerbation of congestive heart failure, diastolic. 2. Pulmonary edema, improved. 3. Symptomatic anemia. 4. Obstructive sleep apnea, suspected. 5. Pulmonary hypertension with mild VSP of 41. 6. Normocytic anemia. 7. Possible gastrointestinal bleed. 8. ILANA secondary to ATN. 9. Cardiorenal syndrome. 10.Hyperkalemia. 11.Chronic kidney disease 3. 12.Diabetes mellitus type 2. 13.ASCAD. 14.Hypertension. 15.Dyslipidemia. PLAN: Nursing has contacted Nephrology who is following the patient for further direction on potassium. Waiting for call back. Patient is to continue oxygen to maintain sats greater than or equal to 90%. Continue bronchodilators p.r.n. only. Encourage increase in activity. Follow GI recommendations. Continue incentive spirometry and pulmonary hygiene. Continue GI and DVT prophylaxis. Patient should have a sleep study as an outpatient and be evaluated for possible need for home O2 prior to discharge. Will continue to follow patient closely with you making further changes as necessary. MMODL / IJN: [id number] /
[2017-10-05 12:05] LABS: Glucose,Whole Blood 226 mg/dL (75-99)
[2017-10-05] MEDS ORDERED: INSULIN REGULAR 100 UNIT/ML VIAL IV ONE (12:25)
[2017-10-05] MEDS ORDERED: DEXTROSE 50%-WATER 50 ML SYRINGE IVP STA (12:25)
--- NOTE | 2017-10-05 12:37 | P.PN ---
Subjective Patient is seen in follow-up for acute kidney injury on chronic kidney disease. Patient has chronic kidney disease stage III with baseline creatinine in the range of 1.2-1.3 from January 2017. Etiology is diabetic kidney disease and nephrosclerosis. Renal function is a little worse today with creatinine at 1.46. She was noted to have hemoglobin of 6.5 as of October 01 for which she did receive blood transfusion. She underwent capsule endoscopy this admission. She denies any melena or hematochezia. No hematuria. She is currently maintained on Demadex 40 mg once daily. Admits to good urine output. Edema is improving. Vital signs are stable. General: The patient appeared well nourished and normally developed. HEENT: Head exam is unremarkable. Neck is without jugular venous distension. LUNGS: Lungs are clear to auscultation and percussion. Breath sounds decreased. HEART: Rate and Rhythm are regular. First and second heart sounds normal. No murmurs, rubs or gallops. ABDOMEN: Abdominal exam reveals normal bowel sounds. Non-tender and non- distended. No evidence of peritonitis. EXTREMITITES: Trace edema. Objective - Vital Signs Vital signs: Vital Signs Temp 97.6 F 10/05/17 08:00 Pulse 73 10/05/17 08:00 Resp 18 10/05/17 08:15 BP 134/66 10/05/17 08:00 Pulse Ox 94 L 10/05/17 08:15 Intake & Output 10/04/17 10/05/17 10/05/17 18:59 06:59 18:59 Intake Total 520 390 Balance 520 390 Weight 123.7 kg Intake: Intake, IV Titration 100 Amount Sodium Ferric Gluconat- 100 Sucrose 125 mg In Sodium Chloride 0.9% 100 ml @ 100 mls/hr IVPB DAILY [facility] Rx#:[id number] Oral 420 390 Other: Voiding Method Toilet Toilet Toilet # Voids 1 - Labs CBC & Chem 7: 10/04/17 05:20 10/05/17 05:49 Labs: Abnormal Lab Results - Last 24 Hours (Table) 10/04/17 10/04/17 10/05/17 Range/Units 16:51 20:42 05:49 Potassium 6.0 H (3.5-5.1) mmol/L BUN 55 H (7-17) mg/dL Creatinine 1.46 H (0.52-1.04) mg/dL Glucose 228 H (74-99) mg/dL POC Glucose (mg/dL) 222 H 327 H (75-99) mg/dL 10/05/17 10/05/17 Range/Units 05:51 11:57 Potassium (3.5-5.1) mmol/L BUN (7-17) mg/dL Creatinine (0.52-1.04) mg/dL Glucose (74-99) mg/dL POC Glucose (mg/dL) 241 H 226 H (75-99) mg/dL Assessment and Plan Plan: Assessment: #1. Nonoliguric acute kidney injury secondary to ATN secondary to cardiorenal syndrome as well as anemia. Creatinine a little worse at 1.46 today. #2. Chronic kidney disease stage III secondary to diabetic kidney disease and nephrosclerosis with baseline creatinine near 1.2-1.3. #3. Acute anemia status post blood transfusion on October 01. Iron deficiency noted as well - status post IV iron.. Results of capsule endoscopy pending. #4. Diabetes mellitus. #5. Volume overload. Improved. #6. Diastolic CHF. #7. Elevated BUN due to acute kidney injury. Also concern for underlying GI bleed. Hematology following. #8. Hyperkalemia secondary to hyperglycemia and acute kidney injury. No evidence of acidosis. Plan: Continue Demadex 40 mg once daily. Change to low potassium diet. 10 units of IV insulin with half an amp of D50 now. Repeat potassium level at 4 PM today. Maintain Aranesp. Avoid nephrotoxic agents and hypotensive episodes. Repeat electrolytes in the morning.
--- NOTE | 2017-10-05 13:56 | P.PN ---
Subjective Progress Note Date: 10/05/17 Principal diagnosis: This is a 62-year-old female who was just recently discharged from the hospital, she has a known history of coronary artery disease, hypertension, chronic kidney disease, presented to the hospital with symptoms of dyspnea. It was felt that the dyspnea and the associated peripheral edema or secondary to her diastolic dysfunction. Patient also stated that she had a syncopal episode in the EMS although there are no record of that EMS documentation. Echocardiogram with Doppler study was performed earlier this month which revealed preserved systolic function with mild mitral and tricuspid regurg, mild pulmonary hypertension. Patient did receive iron infusion during the prior admission because of anemia related to chronic kidney disease. Patient was seen and examined this morning currently undergoing a capsule study. Hemodynamically stable. Edema much improved, denies any shortness of breath. PHYSICAL EXAMINATION: HEENT: Head is atraumatic, normocephalic. Pupils equal, round. Neck is supple. There is no elevated jugular venous pressure. HEART EXAMINATION: Heart S1 and S2 systolic murmur is heard. CHEST EXAMINATION: Circumflex clear with improvement in air entry to the bases. ABDOMEN: Soft, nontender. Bowel sounds are heard. No organomegaly noted. EXTREMITIES: 2+ peripheral pulses with trace evidence of peripheral edema and no calf tenderness noted. NEUROLOGIC patient is awake, alert and oriented -3. . Objective - Vital Signs Vital signs: Vital Signs Temp 96.7 F L 10/05/17 12:00 Pulse 73 10/05/17 12:00 Resp 18 10/05/17 12:00 BP 138/88 10/05/17 12:00 Pulse Ox 95 10/05/17 12:00 Intake & Output 10/04/17 10/05/17 10/05/17 18:59 06:59 18:59 Intake Total 520 990 Balance 520 990 Weight 123.7 kg Intake: Intake, IV Titration 100 100 Amount Sodium Ferric Gluconat- 100 100 Sucrose 125 mg In Sodium Chloride 0.9% 100 ml @ 100 mls/hr IVPB DAILY [facility] Rx#:[id number] Oral 420 890 Other: Voiding Method Toilet Toilet Toilet # Voids 1 - Exam PHYSICAL EXAMINATION: HEENT: Head is atraumatic, normocephalic. Pupils equal, round. Neck is supple. There is no elevated jugular venous pressure. HEART EXAMINATION: Heart S1 and S2 systolic murmur is heard. CHEST EXAMINATION: Circumflex clear with mild diminished air entry to the bases. ABDOMEN: Soft, nontender. Bowel sounds are heard. No organomegaly noted. EXTREMITIES: 2+ peripheral pulses with 1 plus evidence of peripheral edema and no calf tenderness noted. NEUROLOGIC patient is awake, alert and oriented -3. . - Labs CBC & Chem 7: 10/04/17 05:20 10/05/17 05:49 Labs: Abnormal Lab Results - Last 24 Hours (Table) 10/04/17 10/04/17 10/05/17 Range/Units 16:51 20:42 05:49 Potassium 6.0 H (3.5-5.1) mmol/L BUN 55 H (7-17) mg/dL Creatinine 1.46 H (0.52-1.04) mg/dL Glucose 228 H (74-99) mg/dL POC Glucose (mg/dL) 222 H 327 H (75-99) mg/dL 10/05/17 10/05/17 Range/Units 05:51 11:57 Potassium (3.5-5.1) mmol/L BUN (7-17) mg/dL Creatinine (0.52-1.04) mg/dL Glucose (74-99) mg/dL POC Glucose (mg/dL) 241 H 226 H (75-99) mg/dL Assessment and Plan Plan: Assessment and plan #1 diastolic congestive heart failure acute on chronic, exasperated by anemia #2 anemia, capsule study in progress. #3 chronic kidney disease #4 hyperkalemia # 5 history of coronary artery disease #6 hypertension #7 hyperlipidemia #8 diabetes Plan Cardiology's perspective, patient may be discharged home once cleared by the primary. We will make her a follow-up appointment in the office with Dr. Núñez post discharge. DNP note has been reviewed, I agree with a documented findings and plan of care. Patient was seen and examined.
[2017-10-05 15:56] LABS: Glucose,Whole Blood 163 mg/dL (75-99)
[2017-10-05 16:50] LABS: Glucose,Whole Blood 116 mg/dL (75-99)
[2017-10-05] MEDS: diphenhydrAMINE 2% CREAM 28.4 GM TUBE TOPICAL PRN ×2 (17:45→22:45)
--- NOTE | 2017-10-05 18:30 | PN ---
PROGRESS NOTE SUBJECTIVE: 62-year-old white female admitted with congestive heart failure, severe anemia, acute on chronic renal insufficiency, was going to be sent home today, but she was found to have potassium of 6.0. Renal physician made alterations in medications and going to recheck electrolytes in the morning and she should go able to go home. ASSESSMENT: 1. Congestive heart failure. 2. Severe anemia. 3. Chronic obstructive pulmonary disease. 4. Obesity. 5. Hyperkalemia secondary to end-stage renal disease. PLAN: The diuresis is being given and some insulin is being given and will monitor electrolytes. Possible discharge home. Sugars have been improved. MMODL / IJN: [id number] /
[2017-10-05] MEDS: ATORVASTATIN 80 MG TAB PO SCH (20:12)
[2017-10-05 21:09] LABS: Glucose,Whole Blood 207 mg/dL (75-99)
[2017-10-05] MEDS: INSULIN DETEMIR 100 UNIT/ML 10 ML VIAL SQ SCH (22:13)
[2017-10-06 06:29] LABS: Glucose,Whole Blood 219 mg/dL (75-99)
[2017-10-06 06:45] LABS: Basophils % (A) 0 %; Eosinophils # (A) 0.3 k/uL (0-0.7); Eosinophils % (A) 3 %; HCT 29.3 % (34.0-46.0); HGB 9.5 gm/dL (11.4-16.0); Lymphocytes # (A) 1.3 k/uL (1.0-4.8); Lymphocytes % (A) 14 %; MCHC 32.5 g/dL (31.0-37.0); MCV 89.1 fL (80.0-100.0); Mean Platelet Volume 7.1; Monocytes # (A) 0.5 k/uL (0-1.0); Monocytes % (A) 5 %; Neutrophils # (A) 7.5 k/uL (1.3-7.7); Neutrophils % (A) 76 %; Platelet Count 270 k/uL (150-450); RBC 3.28 m/uL (3.80-5.40); RDW 14.3 % (11.5-15.5); WBC 9.9 k/uL (3.8-10.6)
[2017-10-06] MEDS: INSULIN ASPART 100 UNIT/ML 1 ML 10 ML VIAL SQ SCH ×4 (06:57→12:15)
[2017-10-06 06:59] LABS: Calcium 9.1 mg/dL (8.4-10.2); Potassium 5.8 mmol/L (3.5-5.1); Total Bilirubin 0.2 mg/dL (0.2-1.3); Total Protein 5.6 g/dL (6.3-8.2)
[2017-10-06] MEDS: FLUTICASONE 50MCG/SPRAY NASAL 16GM EA NOSTRIL SCH (07:59)
[2017-10-06] MEDS: ISOSORBIDE MONONITRATE ER 30 MG TAB.ER.24H PO SCH (08:00)
[2017-10-06] MEDS: ASPIRIN 81 MG PO SCH (08:00)
[2017-10-06] MEDS: amLODIPine 5 MG TAB PO SCH (08:00)
[2017-10-06] MEDS: METOPROLOL TARTRATE 25 MG TAB PO SCH (08:00)
[2017-10-06] MEDS: hydrALAZINE HCL 50 MG TAB PO SCH (08:00)
[2017-10-06] MEDS: FAMOTIDINE 20 MG TAB PO SCH (08:00)
[2017-10-06] MEDS: LORATADINE 10 MG TAB PO SCH (08:00)
[2017-10-06] MEDS: TORSEMIDE 20 MG TAB PO SCH (08:00)
[2017-10-06 08:15] VITALS: RESP 16
--- NOTE | 2017-10-06 09:51 | P.PN ---
Subjective Progress Note Date: 10/06/17 Principal diagnosis: This is a 62-year-old female who was just recently discharged from the hospital, she has a known history of coronary artery disease, hypertension, chronic kidney disease, presented to the hospital with symptoms of dyspnea. It was felt that the dyspnea and the associated peripheral edema or secondary to her diastolic dysfunction. Patient also stated that she had a syncopal episode in the EMS although there are no record of that EMS documentation. Echocardiogram with Doppler study was performed earlier this month which revealed preserved systolic function with mild mitral and tricuspid regurg, mild pulmonary hypertension. Patient did receive iron infusion during the prior admission because of anemia related to chronic kidney disease. Patient was seen and examined this morning currently undergoing a capsule study. Hemodynamically stable. Edema much improved, denies any shortness of breath. Objective - Vital Signs Vital signs: Vital Signs Temp 97.9 F 10/06/17 08:00 Pulse 80 10/06/17 08:00 Resp 16 10/06/17 08:00 BP 170/83 10/06/17 08:00 Pulse Ox 96 10/06/17 08:00 Intake & Output 10/05/17 10/06/17 10/06/17 18:59 06:59 18:59 Intake Total 1434 240 Balance 1434 240 Weight 123.5 kg Intake: Intake, IV Titration 100 Amount Sodium Ferric Gluconat- 100 Sucrose 125 mg In Sodium Chloride 0.9% 100 ml @ 100 mls/hr IVPB DAILY [facility] Rx#:[id number] Oral 1334 240 Other: Voiding Method Toilet Toilet # Voids 1 1 - Exam PHYSICAL EXAMINATION: HEENT: Head is atraumatic, normocephalic. Pupils equal, round. Neck is supple. There is no elevated jugular venous pressure. HEART EXAMINATION: Heart S1 and S2 systolic murmur is heard. CHEST EXAMINATION: Circumflex clear with mild diminished air entry to the bases. ABDOMEN: Soft, nontender. Bowel sounds are heard. No organomegaly noted. EXTREMITIES: 2+ peripheral pulses with 1 plus evidence of peripheral edema and no calf tenderness noted. NEUROLOGIC patient is awake, alert and oriented -3. . - Labs CBC & Chem 7: 10/06/17 06:29 10/06/17 06:29 Labs: Abnormal Lab Results - Last 24 Hours (Table) 10/05/17 10/05/17 10/05/17 Range/Units 11:57 15:41 16:33 RBC (3.80-5.40) m/uL Hgb (11.4-16.0) gm/dL Hct (34.0-46.0) % Potassium 5.6 H (3.5-5.1) mmol/L BUN (7-17) mg/dL Creatinine (0.52-1.04) mg/dL Glucose (74-99) mg/dL POC Glucose (mg/dL) 226 H 163 H (75-99) mg/dL ALT (9-52) U/L Total Protein (6.3-8.2) g/dL Albumin (3.5-5.0) g/dL 10/05/17 10/05/17 10/06/17 Range/Units 16:48 21:02 06:26 RBC (3.80-5.40) m/uL Hgb (11.4-16.0) gm/dL Hct (34.0-46.0) % Potassium (3.5-5.1) mmol/L BUN (7-17) mg/dL Creatinine (0.52-1.04) mg/dL Glucose (74-99) mg/dL POC Glucose (mg/dL) 116 H 207 H 219 H (75-99) mg/dL ALT (9-52) U/L Total Protein (6.3-8.2) g/dL Albumin (3.5-5.0) g/dL 10/06/17 10/06/17 Range/Units 06:29 06:29 RBC 3.28 L (3.80-5.40) m/uL Hgb 9.5 L (11.4-16.0) gm/dL Hct 29.3 L (34.0-46.0) % Potassium 5.8 H (3.5-5.1) mmol/L BUN 49 H (7-17) mg/dL Creatinine 1.60 H (0.52-1.04) mg/dL Glucose 193 H (74-99) mg/dL POC Glucose (mg/dL) (75-99) mg/dL ALT 53 H (9-52) U/L Total Protein 5.6 L (6.3-8.2) g/dL Albumin 3.0 L (3.5-5.0) g/dL Assessment and Plan Plan: Assessment and plan #1 diastolic congestive heart failure acute on chronic, exasperated by anemia #2 anemia, capsule study in progress. #3 chronic kidney disease #4 hyperkalemia # 5 history of coronary artery disease #6 hypertension #7 hyperlipidemia #8 diabetes Plan Cardiology's perspective, patient may be discharged home once cleared by the primary. We will make her a follow-up appointment in the office with Dr. Núñez post discharge. DNP note has been reviewed, I agree with a documented findings and plan of care. Patient was seen and examined.
[2017-10-06 11:58] LABS: Glucose,Whole Blood 252 mg/dL (75-99)
[2017-10-06 12:40] VITALS: BP 181/85; PULSE 71; TEMP 97.5
--- NOTE | 2017-10-06 17:40 | PN ---
PROGRESS NOTE DATE OF SERVICE: 10/06/2017 She has been hemodynamically stable. She has a hemoglobin that has been stable. Capsule endoscopy was done which apparently was nondiagnostic. She has had no further breathing. She is at her baseline as far as shortness of breath goes. On physical examination, blood pressure is 181/85, respiratory rate is 16, pulse rate of 71, temperature 97.5, O2 saturation on room air is 96%. HEENT is unremarkable. Chest is clear. Cardiovascular system is S1, S2. Abdomen is soft. There is no edema. IMPRESSION: 1. Acute gastrointestinal bleed with iron-deficiency anemia, exact source is unclear. 2. Congestive heart failure with cor pulmonale in part due to untreated obstructive sleep apnea. 3. Pulmonary hypertension due to untreated obstructive sleep apnea. 4. Hyperkalemia and chronic kidney disease. Continue her on the current medications. Agree with discharge planning. Did recommend the patient have a sleep study as an outpatient. She will follow hopefully with us in the outpatient setting. Depending on how she does, we should make further changes to her care. MMODL / IJN: [id number] /
[2017-10-06] MEDS ORDERED: METOPROLOL TARTRATE 50 MG TAB PO SCH (21:00)
--- NOTE | 2017-12-02 07:20 | DS ---
DISCHARGE SUMMARY ADMISSION DATE: 09/30/2017. DISCHARGE DATE: 10/06/2017. DISCHARGE MEDICATIONS: Claritin 10 mg daily, aspirin 81 mg daily, Lipitor 80 mg daily, Apidra 15 units subcu t.i.d., Lantus 50 units daily, metoprolol 75 b.i.d., hydralazine 50 b.i.d., Norvasc 5 mg b.i.d., Lasix 40 mg b.i.d., ranitidine 150 b.i.d., Zestril 20 mg b.i.d., Fluticasone nasal spray daily, Imdur 30 mg daily, Torsemide 40 mg daily. CONDITION: Stable. PROGNOSIS: Guarded. Ambulate as tolerated. DISCHARGE DIAGNOSES: 1. Acute exacerbation of congestive heart failure, diastolic. 2. Pulmonary edema. 3. Symptomatic anemia. 4. Obstructive sleep apnea. 5. Pulmonary hypertension. 6. Normocytic anemia, possible gastrointestinal bleed. 7. Acute kidney injury secondary to acute tubular necrosis, cardiorenal syndrome. 8. Chronic kidney disease stage III. 9. Diabetes mellitus type 2. 10.Atherosclerotic coronary artery disease. 11.Hypertension. 12.Dyslipidemia. The patient was admitted to the hospital, transfusions given due to severe anemia. Updraft treatments were given. IV Lasix for diuresis for congestive heart failure was given. The patient is stabilized from medical management. No further bleeding was found despite the upper GI endoscopy with capsule. The patient was stabilized. Sugars were stabilized. The patient will follow up as outpatient. MMODL / IJN: [id number] /
== END 2017-10-06 13:47 | disposition home health service (06) | DRG 291 ==
LOC: EC 00:57 → 6SEL 05:19
PROVIDERS: ADMIT Family Medicine; ATTEND Family Medicine
PROC: 30233N1 Transfusion of Nonautologous Red Blood Cells into Peripheral Vein, Percutaneous Approach (ICD-10-PCS; principal; 2017-10-01)
PROC: 5A09357 Assistance with Respiratory Ventilation, Less than 24 Consecutive Hours, Continuous Positive Airway Pressure (ICD-10-PCS; 2017-10-01)
PROC: 0DJ07ZZ Inspection of Upper Intestinal Tract, Via Natural or Artificial Opening (ICD-10-PCS; 2017-10-04)
DX: I13.2 Hypertensive heart and chronic kidney disease with heart failure and with stage 5 chronic kidney disease, or end stage renal disease (principal); N17.0 Acute kidney failure with tubular necrosis; J96.01 Acute respiratory failure with hypoxia; E11.22 Type 2 diabetes mellitus with diabetic chronic kidney disease; E11.40 Type 2 diabetes mellitus with diabetic neuropathy, unspecified; E87.5 Hyperkalemia; K92.2 Gastrointestinal hemorrhage, unspecified; J81.0 Acute pulmonary edema; I50.33 Acute on chronic diastolic (congestive) heart failure; D50.9 Iron deficiency anemia, unspecified; I27.81 Cor pulmonale (chronic); E11.65 Type 2 diabetes mellitus with hyperglycemia; I27.29 Other secondary pulmonary hypertension; D63.1 Anemia in chronic kidney disease; N18.3 Chronic kidney disease, stage 3 (moderate); E66.9 Obesity, unspecified; E78.5 Hyperlipidemia, unspecified; F41.9 Anxiety disorder, unspecified; G47.33 Obstructive sleep apnea (adult) (pediatric); I08.1 Rheumatic disorders of both mitral and tricuspid valves; I25.10 Atherosclerotic heart disease of native coronary artery without angina pectoris; I25.2 Old myocardial infarction; J44.9 Chronic obstructive pulmonary disease, unspecified; J30.2 Other seasonal allergic rhinitis; R79.1 Abnormal coagulation profile; R74.8 Abnormal levels of other serum enzymes; T46.4X5A Adverse effect of angiotensin-converting-enzyme inhibitors, initial encounter; Z79.4 Long term (current) use of insulin; Z79.82 Long term (current) use of aspirin; Z79.899 Other long term (current) drug therapy; Z88.5 Allergy status to narcotic agent; Z88.2 Allergy status to sulfonamides; Z88.1 Allergy status to other antibiotic agents; Z91.040 Latex allergy status; Z95.5 Presence of coronary angioplasty implant and graft; Z82.49 Family history of ischemic heart disease and other diseases of the circulatory system; Y92.239 Unspecified place in hospital as the place of occurrence of the external cause
CPT/HCPCS: 36415; 71045; 71046; 78582; 80048; 80053; 82550; 82553; 83540; 83550; 83735; 83880; 84132; 84484; 85025; 85027; 85379; 85610; 85730; 86850; 86900; 86901; 86920; 91110; 93005; 94660; 94760; 96365; 96372; 96375; 99291

== ENCOUNTER → 2017-11-27 | Outpatient (CLI) | payer OTHER ==
--- NOTE | 2017-11-27 21:07 | CONS ---
CONSULTATION This is a consultation note for sleep apnea. This is a 62-year-old female patient, referred to me for evaluation of obstructive sleep apnea. The patient is obese and she has BMI of 43.9. 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 in the morning and she is averaging around 5- 6 hours of sleep. It takes a few minutes to fall asleep and she feels tired and sleepy during the day and for that reason, she was referred for investigation of obstructive sleep apnea, especially with her variances and comorbidities that she has. She is a mouth breather. No sinus disease. No allergic rhinitis. Weight has been up over the years. No nighttime angina. No nighttime heartburn. No evidence of any motor vehicle accidents because of feeling drowsy or sleepy. PAST MEDICAL HISTORY: Obesity, diabetes mellitus, hypertension, hyperlipidemia, coronary artery disease, previous coronary stenting, previous [place], congestive heart failure, anxiety and obesity. SURGICAL HISTORY: Includes cardiac catheterization, insertion of a stent, carpal tunnel disease bilaterally from both hands. DRUG ALLERGIES: To CODEINE, LATEX, KEFLEX, CEPHALOSPORINS, CIPRO, SULFA and ADHESIVE TAPES. OUTPATIENT MEDICATION LIST: Includes: 1. Lisinopril 20 mg p.o. daily. 2. Metoprolol 275 mg p.o. twice a day. 3. Demadex 20 mg p.o. daily. 4. Aspirin 81 mg p.o. daily. 5. Hydralazine 50 mg twice a day. 6. Ranitidine 150 mg twice a day. 7. Norvasc 5 daily. 8. Lipitor 80 daily. 9. Imdur 30 daily. 10.Iron 65 mg p.o. daily. 11.Loratadine 10 mg p.o. daily. 12.Lantus insulin 56 units daily. 13.Apidra 15 units 3 times a day. FAMILY HISTORY: Negative for sleep apnea. No history of alcohol. No history of IV drugs. REVIEW OF SYSTEMS: A 12-point review of systems was done. The positive findings are mentioned above in the history of present illness. Of significance is weight gain over the years. She has nocturia. She has dry mouth. She has occasional restlessness in lower extremities. No grinding of the teeth. No sleepwalking. No anxiety or panic attacks. No palpitation. No heartburn. No claustrophobia. No depression. PHYSICAL EXAMINATION: BP is 181/67, pulse 72, respirations 16, temperature 98, saturation 94% on room air. Manton score is a 4. Neck size is 18. BMI 43.9. Manton score was 4. GENERAL APPEARANCE: Calm comfortable, in no acute distress. Head is atraumatic, normocephalic. Neck is short, supple, crowded posterior pharynx. Mallampati class IV. LUNGS: Clear to auscultation. HEART: Sounds are regular rate and rhythm. Normal S1, S2. No S3. No murmurs. ABDOMEN: Soft, nontender. No organomegaly. EXTREMITIES: No edema. No cyanosis or clubbing. NEUROLOGIC: A and O x3. There are no focal neurological deficits. PSYCHIATRIC: Negative for anxiety or depression. IMPRESSION: 1. Obstructive sleep apnea suspected clinically. Will need further investigation. 2. Coronary artery disease with previous myocardial infarction, currently has a coronary stent. 3. Congestive heart failure. 4. Hyperlipidemia. 5. Diabetes. 6. Hypertension. 7. Obesity with a body mass index of 43.9. 8. Delayed sleep phase syndrome. PLAN: 1. Proceed with a screening polysomnogram. 2. Encourage weight loss. 3. Will ask this patient to gradually move her sleep hours to an earlier hour of midnight and this can be done gradually by moving her sleep time by around half an hour each night on a weekly basis. 4. Implement good sleep hygiene measures. 5. Will continue to follow. Further recommendations to follow based on the results of the sleep study. MMODL / IJN: [id number] /
== END | disposition home or self-care (01) ==
LOC: SLEEP 14:51
PROVIDERS: ATTEND Internal Medicine Critical Care Medicine
DX: G47.30 Sleep apnea, unspecified (principal); I25.10 Atherosclerotic heart disease of native coronary artery without angina pectoris; I25.2 Old myocardial infarction; I50.9 Heart failure, unspecified; E78.5 Hyperlipidemia, unspecified; E11.9 Type 2 diabetes mellitus without complications; I10 Essential (primary) hypertension; E66.9 Obesity, unspecified; G47.21 Circadian rhythm sleep disorder, delayed sleep phase type; Z95.5 Presence of coronary angioplasty implant and graft; Z68.41 Body mass index [BMI] 40.0-44.9, adult; Z88.5 Allergy status to narcotic agent; Z91.040 Latex allergy status; Z88.1 Allergy status to other antibiotic agents; Z88.2 Allergy status to sulfonamides; Z91.09 Other allergy status, other than to drugs and biological substances; Z79.899 Other long term (current) drug therapy; Z79.82 Long term (current) use of aspirin; Z79.4 Long term (current) use of insulin
CPT/HCPCS: 99211

== ENCOUNTER → 2017-12-07 | Outpatient (CLI) | payer OTHER ==
[2017-12-07 17:19] LABS: Calcium 9.3 mg/dL (8.4-10.2); Potassium 5.7 mmol/L (3.5-5.1)
== END | disposition home or self-care (01) ==
LOC: LABWHC1 16:35
PROVIDERS: ATTEND Internal Medicine Nephrology
DX: N17.9 Acute kidney failure, unspecified (principal)
CPT/HCPCS: 36415; 80048

== ENCOUNTER → 2018-03-08 | Outpatient (CLI) | payer OTHER ==
[2018-03-08 14:47] LABS: HCT 26.6 % (34.0-46.0); HGB 8.8 gm/dL (11.4-16.0); MCH 29.8 pg (25.0-35.0); MCHC 32.9 g/dL (31.0-37.0); MCV 90.5 fL (80.0-100.0); Mean Platelet Volume 6.8; Platelet Count 275 k/uL (150-450); RBC 2.94 m/uL (3.80-5.40); RDW 13.9 % (11.5-15.5); WBC 8.7 k/uL (3.8-10.6)
[2018-03-08 14:57] LABS: Albumin 3.5 g/dL (3.5-5.0); Appearance,Urine Cloudy (Clear); Bacteria,Urine Rare /hpf; Bilirubin,Urine Negative (Negative); Blood,Urine Negative (Negative); Color,Urine Light Yellow; Glucose,Urine (UA) 3+ (Negative); Hyaline Casts,Urine 1 /lpf (0-2); Ketones,Urine Negative (Negative); Leukocyte Esterase,Urine Negative (Negative); Magnesium 1.7 mg/dL (1.6-2.3); Mucus,Urine Rare /hpf; Nitrite,Urine Negative (Negative); PH, Urine 5.5 (5.0-8.0); Phosphorus 4.6 mg/dL (2.5-4.5); Protein,Urine 1+ (Negative); RBC,Urine 1 /hpf (0-5); Specific Gravity,Urine 1.007 (1.001-1.035); Total Bilirubin 0.1 mg/dL (0.2-1.3); Total Protein 6.1 g/dL (6.3-8.2); Urobilinogen,Urine <2.0 mg/dL (<2.0); WBC,Urine 1 /hpf (0-5)
[2018-03-08 15:22] LABS: Creatinine,Urine Random 27.7 mg/dL
[2018-03-08 18:39] LABS: Iron Saturation 18.18 (12.00-45.00)
[2018-03-08 18:48] LABS: Vitamin D 25 Hydroxy 24.9 ng/mL (30.0-100.0)
[2018-03-08 19:15] LABS: Parathyroid Hormone Intact 143.4 pg/mL (14.0-72.0)
== END | disposition home or self-care (01) ==
LOC: LABWHC1 13:39
PROVIDERS: ATTEND Nurse Practitioner Family
DX: N17.9 Acute kidney failure, unspecified (principal); D64.9 Anemia, unspecified; N39.0 Urinary tract infection, site not specified; R80.9 Proteinuria, unspecified; E21.3 Hyperparathyroidism, unspecified; E55.9 Vitamin D deficiency, unspecified; M10.9 Gout, unspecified
CPT/HCPCS: 36415; 80053; 81001; 82306; 82570; 82728; 83540; 83550; 83735; 83970; 84100; 84156; 84550; 85027

== ENCOUNTER → 2018-04-15 | Outpatient (CLI) | payer OTHER ==
[2018-04-15 13:06] LABS: Potassium 5.6 mmol/L (3.5-5.1)
== END | disposition home or self-care (01) ==
LOC: LABWHC1 12:17
PROVIDERS: ATTEND Internal Medicine Nephrology
DX: E78.5 Hyperlipidemia, unspecified (principal)
CPT/HCPCS: 36415; 80048

== ENCOUNTER 2018-04-26 14:52 | Emergency (ER) | payer OTHER ==
[2018-04-26] MEDS ORDERED: ASPIRIN 81 MG PO STA (15:35)
--- NOTE | 2018-04-26 15:40 | ED ---
General Adult HPI - General Chief complaint: Shortness of Breath Stated complaint: Shortness of Breath Time Seen by Provider: 04/26/18 15:23 Source: patient Mode of arrival: ambulatory Limitations: no limitations - History of Present Illness Initial comments: Patient is a 62-year-old female with a history of [place], CHF who presents with a chief complaint of chest pain and shortness of breath for a week and a half. Patient states that this is been gradually worsening for her. She states that it feels like a CHF exacerbation. She cannot identify an inciting incident. There are no aggravating or alleviating factors. Timing is constant. Patient admits to having a cough that is nonproductive. Patient states that she has been compliant with all medications, specifically baby aspirin today. - Related Data Home Medications Medication Instructions Recorded Confirmed Loratadine [Claritin] 10 mg PO DAILY 01/05/15 04/23/18 Aspirin 81 mg PO DAILY 04/16/15 04/23/18 Atorvastatin [Lipitor] 80 mg PO HS 10/14/15 04/23/18 Insulin Glulisine [Apidra] 15 unit SQ TID 11/05/15 04/23/18 Insulin Glargine [Lantus] 50 unit SQ HS 01/22/17 04/23/18 amLODIPine [Norvasc] 5 mg PO BID 08/15/17 04/23/18 hydrALAZINE HCL [Apresoline] 50 mg PO BID 08/15/17 04/23/18 Fluticasone Propionate [Flonase 2 spray EA NOSTRIL DAILY 09/20/17 04/23/18 Allergy Relief] Lisinopril [Zestril] 10 mg PO BID 09/20/17 04/23/18 Ranitidine HCl 150 mg PO BID 09/20/17 04/23/18 Ferrous Sulfate [Iron (65 MG 1 tab PO DAILY 04/15/18 04/23/18 Elemental)] Metolazone [Zaroxolyn] 2.5 mg PO DIRECTED 04/15/18 04/23/18 Previous Rx's Medication Instructions Recorded Metoprolol Tartrate [Lopressor] 75 mg PO BID #60 tablet 01/24/17 Acetaminophen Tab [Tylenol] 650 mg PO Q6HR PRN tab 09/25/17 Isosorbide Mononitrate ER [Imdur] 30 mg PO DAILY tab.er.24h 10/06/17 Torsemide [Demadex] 40 mg PO DAILY tab 10/06/17 Allergies Allergy/AdvReac Type Severity Reaction Status Date / Time cephalexin monohydrate Allergy Rash/Hives Verified 04/26/18 15:21 [From Keflex] ciprofloxacin [From Cipro] Allergy Swelling Verified 04/26/18 15:21 ciprofloxacin HCl Allergy Swelling Verified 04/26/18 15:21 [From Cipro] codeine Allergy Unknown Verified 04/26/18 15:21 latex Allergy Itching Verified 04/26/18 15:21 sulfamethoxazole Allergy Itching Verified 04/26/18 15:21 [From Bactrim] trimethoprim [From Bactrim] Allergy Itching Verified 04/26/18 15:21 adhesive tape AdvReac Itching Verified 04/26/18 15:21 Review of Systems ROS Statement: Those systems with pertinent positive or pertinent negative responses have been documented in the HPI. ROS Other: All systems not noted in ROS Statement are negative. Constitutional: Reports: chills Respiratory: Reports: cough Cardiovascular: Reports: chest pain, dyspnea on exertion, orthopnea Past Medical History Past Medical History: Coronary Artery Disease (CAD), Heart Failure, Diabetes Mellitus, Hyperlipidemia, Hypertension, Myocardial Infarction ([place]) Additional Past Medical History / Comment(s): edema, seasonal allergies, Diabetic ulcer-SEES DR ZELAYA FOR WOUND CARE, anemia, neuropathy, CKD Last Myocardial Infarction Date:: 01/10/15 History of Any Multi-Drug Resistant Organisms: None Reported Past Surgical History: Heart Catheterization With Stent Additional Past Surgical History / Comment(s): PT HAD STENT TO DISTAL RCA IN DECEMBER 2014, carpal tunnel bilateral hands, Eye surgery to cauterize bleeding November, Past Anesthesia/Blood Transfusion Reactions: Family History of Problems w/ Anesthesia, Motion Sickness Additional Past Anesthesia/Blood Transfusion Reaction / Comment(s): states mother had difficulty coming out of anesthesia Date of Last Stent Placement:: 12/30 Past Psychological History: Anxiety Smoking Status: Never smoker Past Alcohol Use History: None Reported Past Drug Use History: None Reported - Past Family History Brother(s) Family Medical History: Cancer ( 6 eeks old of leukemia) Sister(s) Family Medical History: Diabetes Mellitus, Hypertension, Myocardial Infarction ( [place]), Vascular Disorder Additional Family Medical History / Comment(s): post procedure of five stents Mother Family Medical History: CVA/TIA, Diabetes Mellitus, Myocardial Infarction ([place]) Additional Family Medical History / Comment(s): TIA's, PVD. Mother at age 65yrs. Father Family Medical History: Dementia, Diabetes Mellitus, Hypertension Additional Family Medical History / Comment(s): Father at age 72 yrs. General Exam Limitations: no limitations General appearance: alert, in no apparent distress Head exam: Present: atraumatic, normocephalic Eye exam: Present: normal appearance ENT exam: Present: normal exam, mucous membranes moist Neck exam: Present: normal inspection Respiratory exam: Present: decreased breath sounds. Absent: respiratory distress, wheezes Cardiovascular Exam: Present: regular rate, normal rhythm GI/Abdominal exam: Present: soft. Absent: distended, tenderness Rectal exam: Present: deferred Extremities exam: Present: pedal edema, other (Patient has 3+ pitting edema) Back exam: Present: normal inspection Neurological exam: Present: alert, oriented X3 Psychiatric exam: Present: normal affect, normal mood Skin exam: Present: warm, dry, intact Course Vital Signs 04/26/18 04/26/18 04/26/18 15:18 18:33 18:36 Temperature 99.2 F 97.9 F Pulse Rate 76 69 Respiratory 20 18 Rate Blood Pressure 137/53 139/63 O2 Sat by Pulse 96 96 94 L Oximetry Medical Decision Making - Medical Decision Making Patient presents with a chief complaint of chest pain, shortness of breath, and cough. On initial examination, vitals are stable, patient is in no acute distress. Oxygen saturation is 96 on room air, she does not have any conversational dyspnea. Patient be evaluated with EKG, basic and cardiac evaluation. Patient given aspirin. EKG performed at 1557 shows normal sinus rhythm with a rate of 72 bpm. EKG is otherwise unremarkable. 8 PM Lab evaluation of this patient shows evidence of chronic kidney disease with a creatinine of 1.92. This is baseline for the patient. Potassium is 5.7 however under review previous values this is also baseline for the patient. There are no peaked T waves on EKG. BNP is just over 500 with chest x-ray evidence of vascular congestion. This case was discussed with Dr. Goldman who agrees with doubling the patient's dose of torsemide for the next 2 days, and having her follow-up in the office. Ambulatory pulse ox shows no significant elevation in heart rate with a low pulse oximetry of 94% on room air. At this time, patient was instructed to double her dose of torsemide for the next 2 days and follow-up with cardiology in 1-2 days. Return to the emergency department if symptoms worsen or change. - Lab Data Result diagrams: 04/26/18 16:00 04/26/18 16:00 Lab Results 04/26/18 04/26/18 04/26/18 Range/Units 16:00 16:00 16:00 WBC 8.5 (3.8-10.6) k/uL RBC 3.05 L (3.80-5.40) m/uL Hgb 9.0 L (11.4-16.0) gm/dL Hct 26.6 L (34.0-46.0) % MCV 87.2 (80.0-100.0) fL MCH 29.4 (25.0-35.0) pg MCHC 33.7 (31.0-37.0) g/dL RDW 14.0 (11.5-15.5) % Plt Count 236 (150-450) k/uL Neutrophils % 73 % Lymphocytes % 15 % Monocytes % 6 % Eosinophils % 4 % Basophils % 0 % Neutrophils # 6.2 (1.3-7.7) k/uL Lymphocytes # 1.3 (1.0-4.8) k/uL Monocytes # 0.5 (0-1.0) k/uL Eosinophils # 0.3 (0-0.7) k/uL Basophils # 0.0 (0-0.2) k/uL PT (9.0-12.0) sec INR (<1.2) Sodium 139 (137-145) mmol/L Potassium 5.7 H (3.5-5.1) mmol/L Chloride 110 H (98-107) mmol/L Carbon Dioxide 22 (22-30) mmol/L Anion Gap 7 mmol/L BUN 67 H (7-17) mg/dL Creatinine 1.93 H (0.52-1.04) mg/dL Est GFR (CKD-EPI)AfAm 32 (>60 ml/min/1.73 sqM) Est GFR (CKD-EPI)NonAf 28 (>60 ml/min/1.73 sqM) Glucose 131 H (74-99) mg/dL Calcium 9.1 (8.4-10.2) mg/dL Magnesium 1.8 (1.6-2.3) mg/dL Total Bilirubin 0.2 (0.2-1.3) mg/dL AST 16 (14-36) U/L ALT 31 (9-52) U/L Alkaline Phosphatase 77 (38-126) U/L Troponin I (0.000-0.034) ng/mL NT-Pro-B Natriuret Pep 541 pg/mL Total Protein 6.2 L (6.3-8.2) g/dL Albumin 3.5 (3.5-5.0) g/dL Lipase 210 (23-300) U/L 04/26/18 04/26/18 Range/Units 16:00 16:00 WBC (3.8-10.6) k/uL RBC (3.80-5.40) m/uL Hgb (11.4-16.0) gm/dL Hct (34.0-46.0) % MCV (80.0-100.0) fL MCH (25.0-35.0) pg MCHC (31.0-37.0) g/dL RDW (11.5-15.5) % Plt Count (150-450) k/uL Neutrophils % % Lymphocytes % % Monocytes % % Eosinophils % % Basophils % % Neutrophils # (1.3-7.7) k/uL Lymphocytes # (1.0-4.8) k/uL Monocytes # (0-1.0) k/uL Eosinophils # (0-0.7) k/uL Basophils # (0-0.2) k/uL PT 10.3 (9.0-12.0) sec INR 1.0 (<1.2) Sodium (137-145) mmol/L Potassium (3.5-5.1) mmol/L Chloride (98-107) mmol/L Carbon Dioxide (22-30) mmol/L Anion Gap mmol/L BUN (7-17) mg/dL Creatinine (0.52-1.04) mg/dL Est GFR (CKD-EPI)AfAm (>60 ml/min/1.73 sqM) Est GFR (CKD-EPI)NonAf (>60 ml/min/1.73 sqM) Glucose (74-99) mg/dL Calcium (8.4-10.2) mg/dL Magnesium (1.6-2.3) mg/dL Total Bilirubin (0.2-1.3) mg/dL AST (14-36) U/L ALT (9-52) U/L Alkaline Phosphatase (38-126) U/L Troponin I <0.012 (0.000-0.034) ng/mL NT-Pro-B Natriuret Pep pg/mL Total Protein (6.3-8.2) g/dL Albumin (3.5-5.0) g/dL Lipase (23-300) U/L Disposition Clinical Impression: CHF exacerbation, Peripheral edema, Hyperkalemia, CKD (chronic kidney disease) Disposition: HOME SELF-CARE Condition: Good Instructions: Heart Failure (ED) Additional Instructions: General your dose of torsemide for the next 2 days. Take 2 tablets (80 mg) twice daily for the next 2 days. Follow-up with cardiology in 1-2 days. Is patient prescribed a controlled substance at d/c from ED?: No Referrals: Gale Amin MD [Primary Care Provider] - 1-2 days Marilee Núñez MD [STAFF PHYSICIAN] - 1-2 days
[2018-04-26 16:11] LABS: Basophils % (A) 0 %; Eosinophils # (A) 0.3 k/uL (0-0.7); Eosinophils % (A) 4 %; HCT 26.6 % (34.0-46.0); Lymphocytes # (A) 1.3 k/uL (1.0-4.8); Lymphocytes % (A) 15 %; MCH 29.4 pg (25.0-35.0); MCHC 33.7 g/dL (31.0-37.0); MCV 87.2 fL (80.0-100.0); Mean Platelet Volume 7.7; Monocytes # (A) 0.5 k/uL (0-1.0); Monocytes % (A) 6 %; Neutrophils # (A) 6.2 k/uL (1.3-7.7); Neutrophils % (A) 73 %; Platelet Count 236 k/uL (150-450); RBC 3.05 m/uL (3.80-5.40); WBC 8.5 k/uL (3.8-10.6)
[2018-04-26 16:16] LABS: Prothrombin Time 10.3 sec (9.0-12.0)
[2018-04-26 16:21] LABS: Albumin 3.5 g/dL (3.5-5.0); Calcium 9.1 mg/dL (8.4-10.2); Magnesium 1.8 mg/dL (1.6-2.3); Potassium 5.7 mmol/L (3.5-5.1); Total Bilirubin 0.2 mg/dL (0.2-1.3); Total Protein 6.2 g/dL (6.3-8.2)
--- NOTE | 2018-04-26 16:34 | XR ---
EXAMINATION TYPE: XR chest 2V DATE OF EXAM: 04/26/2018 COMPARISON: 10/03/2017 HISTORY: 62-year-old female there are increased shortness of breath with large family edema, pain TECHNIQUE: PA and lateral views FINDINGS: Heart borderline enlarged. Diffuse interstitial and vascular prominence. Mild patchy left basilar opa city is increased. No pleural effusion. IMPRESSION: 1. Borderline heart size and interstitial/vascular prominence. Correlate for mild pulmonary vascular congestion. 2. Some patchy left basilar opacity probably represents atelectasis.
[2018-04-26 20:11] VITALS: BP 132/60; PULSE 66; RESP 16; TEMP 97.4
== END 2018-04-26 20:13 | disposition home or self-care (01) ==
LOC: EC 14:52
DX: I13.0 Hypertensive heart and chronic kidney disease with heart failure and stage 1 through stage 4 chronic kidney disease, or unspecified chronic kidney disease (principal); I50.9 Heart failure, unspecified; N18.9 Chronic kidney disease, unspecified; E87.5 Hyperkalemia; E11.40 Type 2 diabetes mellitus with diabetic neuropathy, unspecified; E11.22 Type 2 diabetes mellitus with diabetic chronic kidney disease; I25.10 Atherosclerotic heart disease of native coronary artery without angina pectoris; E78.5 Hyperlipidemia, unspecified; I25.2 Old myocardial infarction; Z95.5 Presence of coronary angioplasty implant and graft; Z79.82 Long term (current) use of aspirin; Z79.4 Long term (current) use of insulin; Z79.51 Long term (current) use of inhaled steroids; Z79.899 Other long term (current) drug therapy; Z88.1 Allergy status to other antibiotic agents; Z88.5 Allergy status to narcotic agent; Z91.040 Latex allergy status; Z88.2 Allergy status to sulfonamides; Z91.048 Other nonmedicinal substance allergy status; Z82.49 Family history of ischemic heart disease and other diseases of the circulatory system
CPT/HCPCS: 36415; 71046; 80053; 83690; 83735; 83880; 84484; 85025; 85610; 93005; 99285

== ENCOUNTER 2018-06-17 17:59 | Inpatient (IN) | payer OTHER ==
[2018-06-17] MEDS ORDERED: SODIUM CHLORIDE 0.9% 1,000 ML IV STA (18:55)
--- NOTE | 2018-06-17 19:03 | ED ---
SOB HPI - General Chief Complaint: Shortness of Breath Stated Complaint: SOB Time Seen by Provider: 06/17/18 18:15 Source: patient, RN notes reviewed, old records reviewed Mode of arrival: wheelchair Limitations: no limitations - History of Present Illness Initial Comments: This is an 87-year-old female the ER for evasive shortness of breath exertional dyspnea. Patient states she has had shortness breath for a few days now progressively worsening. Mild cough no congestion no fevers. No chest pain. No recent travel history no known sick contacts. Patient does admit to positive similar history in the past related to low hemoglobin MD Complaint: shortness of breath -: days(s) Severity: moderate Severity scale (1-10): 5 Consistency: constant Improves With: rest Worsens With: exertion Treatments Prior to Arrival: none - Related Data Home Medications Medication Instructions Recorded Confirmed Loratadine [Claritin] 10 mg PO DAILY 01/05/15 06/17/18 Aspirin 81 mg PO DAILY 04/16/15 06/17/18 Atorvastatin [Lipitor] 80 mg PO HS 10/14/15 06/17/18 Insulin Glulisine [Apidra] 24 unit SQ TID 11/05/15 06/17/18 Insulin Glargine [Lantus] 40 unit SQ BID 01/22/17 06/17/18 amLODIPine [Norvasc] 5 mg PO BID 08/15/17 06/17/18 hydrALAZINE HCL [Apresoline] 50 mg PO TID-W/MEALS 08/15/17 06/17/18 Ranitidine HCl 150 mg PO BID 09/20/17 06/17/18 Ferrous Sulfate [Iron (65 MG 325 mg PO DAILY 04/15/18 06/17/18 Elemental)] Metolazone [Zaroxolyn] 2.5 mg PO WEFR 04/15/18 06/17/18 Insulin Glulisine [Apidra] See Protocol SQ TID 06/17/18 06/17/18 Lisinopril [Zestril] 10 mg PO DAILY 06/17/18 06/17/18 Metoprolol Succinate [Toprol XL] 75 mg PO BID 06/17/18 06/17/18 Torsemide [Demadex] 20 mg PO BID 06/17/18 06/17/18 Previous Rx's Medication Instructions Recorded Isosorbide Mononitrate ER [Imdur] 30 mg PO DAILY tab.er.24h 10/06/17 Allergies Allergy/AdvReac Type Severity Reaction Status Date / Time cephalexin monohydrate Allergy Rash/Hives Verified 06/17/18 18:54 [From Keflex] ciprofloxacin [From Cipro] Allergy Swelling Verified 06/17/18 18:54 ciprofloxacin HCl Allergy Swelling Verified 06/17/18 18:54 [From Cipro] codeine Allergy Unknown Verified 06/17/18 18:54 latex Allergy Itching Verified 06/17/18 18:54 sulfamethoxazole Allergy Itching Verified 06/17/18 18:54 [From Bactrim] trimethoprim [From Bactrim] Allergy Itching Verified 06/17/18 18:54 adhesive tape AdvReac Itching Verified 06/17/18 18:54 Review of Systems ROS Statement: Those systems with pertinent positive or pertinent negative responses have been documented in the HPI. ROS Other: All systems not noted in ROS Statement are negative. Past Medical History Past Medical History: Blood Disorder, Coronary Artery Disease (CAD), Heart Failure, Diabetes Mellitus, Hyperlipidemia, Hypertension, Myocardial Infarction ([place]) Additional Past Medical History / Comment(s): edema, seasonal allergies, Diabetic ulcer-SEES DR ZELAYA FOR WOUND CARE, anemia, neuropathy, CKD Last Myocardial Infarction Date:: 01/10/15 History of Any Multi-Drug Resistant Organisms: None Reported Past Surgical History: Heart Catheterization With Stent Additional Past Surgical History / Comment(s): PT HAD STENT TO DISTAL RCA IN DECEMBER 2014, carpal tunnel bilateral hands, Eye surgery to cauterize bleeding November, Past Anesthesia/Blood Transfusion Reactions: Family History of Problems w/ Anesthesia, Motion Sickness Additional Past Anesthesia/Blood Transfusion Reaction / Comment(s): states mother had difficulty coming out of anesthesia Date of Last Stent Placement:: 12/30 Past Psychological History: Anxiety Smoking Status: Never smoker Past Alcohol Use History: None Reported Past Drug Use History: None Reported - Past Family History Brother(s) Family Medical History: Cancer Sister(s) Family Medical History: Diabetes Mellitus, Hypertension, Myocardial Infarction ( [place]), Vascular Disorder Additional Family Medical History / Comment(s): post procedure of five stents Mother Family Medical History: CVA/TIA, Diabetes Mellitus, Myocardial Infarction ([place]) Additional Family Medical History / Comment(s): TIA's, PVD. Mother at age 65yrs. Father Family Medical History: Dementia, Diabetes Mellitus, Hypertension Additional Family Medical History / Comment(s): Father at age 72 yrs. General Exam Limitations: no limitations General appearance: alert, in no apparent distress Head exam: Present: atraumatic, normocephalic, normal inspection Eye exam: Present: normal appearance, PERRL, EOMI. Absent: scleral icterus, conjunctival injection, periorbital swelling ENT exam: Present: normal exam, mucous membranes moist Neck exam: Present: normal inspection. Absent: tenderness, meningismus, lymphadenopathy Respiratory exam: Present: normal lung sounds bilaterally. Absent: respiratory distress, wheezes, rales, rhonchi, stridor Cardiovascular Exam: Present: regular rate, normal rhythm, normal heart sounds. Absent: systolic murmur, diastolic murmur, rubs, gallop, clicks GI/Abdominal exam: Present: soft, normal bowel sounds. Absent: distended, tenderness, guarding, rebound, rigid Extremities exam: Present: normal inspection, full ROM, normal capillary refill. Absent: tenderness, pedal edema, joint swelling, calf tenderness Back exam: Present: normal inspection Neurological exam: Present: alert, oriented X3, CN II-XII intact Psychiatric exam: Present: normal affect, normal mood Skin exam: Present: warm, dry, intact, normal color. Absent: rash Course Vital Signs 06/17/18 06/17/18 18:02 20:36 Temperature 97.9 F Pulse Rate 82 75 Respiratory 18 20 Rate Blood Pressure 171/67 164/71 O2 Sat by Pulse 93 L 96 Oximetry - Reevaluation(s) Reevaluation #1: 06/17/18 22:04 Medical records thoroughly reviewed, prior admissions Reevaluation #2: 06/17/18 22:05 Patient informed of normal hemoglobin, continuing to complain of exertional shortness of breath, x-ray was obtained which shows positive CHF, patient informed her results Medical Decision Making - Medical Decision Making 63 female the ER for evaluation of exertional dyspnea. Patient be admitted for continued diuresis secondary to CHF. - Lab Data Result diagrams: 06/17/18 18:25 06/17/18 18:25 Lab Results 10/01/18 10/01/18 10/01/18 Range/Units 18:25 18:25 18:25 WBC 8.7 (3.8-10.6) k/uL RBC 3.14 L (3.80-5.40) m/uL Hgb 9.1 L (11.4-16.0) gm/dL Hct 28.3 L (34.0-46.0) % MCV 90.1 (80.0-100.0) fL MCH 29.0 (25.0-35.0) pg MCHC 32.2 (31.0-37.0) g/dL RDW 14.4 (11.5-15.5) % Plt Count 305 (150-450) k/uL Neutrophils % 76 % Lymphocytes % 12 % Monocytes % 5 % Eosinophils % 5 % Basophils % 1 % Neutrophils # 6.6 (1.3-7.7) k/uL Lymphocytes # 1.1 (1.0-4.8) k/uL Monocytes # 0.4 (0-1.0) k/uL Eosinophils # 0.4 (0-0.7) k/uL Basophils # 0.0 (0-0.2) k/uL Hypochromasia Slight PT 9.6 (9.0-12.0) sec INR 1.0 (<1.2) APTT 18.6 L (22.0-30.0) sec Sodium (137-145) mmol/L Potassium (3.5-5.1) mmol/L Chloride (98-107) mmol/L Carbon Dioxide (22-30) mmol/L Anion Gap mmol/L BUN (7-17) mg/dL Creatinine (0.52-1.04) mg/dL Est GFR (CKD-EPI)AfAm (>60 ml/min/1.73 sqM) Est GFR (CKD-EPI)NonAf (>60 ml/min/1.73 sqM) Glucose (74-99) mg/dL Calcium (8.4-10.2) mg/dL Magnesium (1.6-2.3) mg/dL Total Bilirubin (0.2-1.3) mg/dL AST (14-36) U/L ALT (9-52) U/L Alkaline Phosphatase (38-126) U/L Total Creatine Kinase 202 H (30-135) U/L CK-MB (CK-2) 3.9 H (0.0-2.4) ng/mL CK-MB (CK-2) Rel Index 1.9 Troponin I <0.012 (0.000-0.034) ng/mL NT-Pro-B Natriuret Pep pg/mL Total Protein (6.3-8.2) g/dL Albumin (3.5-5.0) g/dL Blood Type Blood Type Recheck Antibody Screen Spec Expiration Date 06/17/18 06/17/18 06/17/18 Range/Units 18:25 18:25 20:51 WBC (3.8-10.6) k/uL RBC (3.80-5.40) m/uL Hgb (11.4-16.0) gm/dL Hct (34.0-46.0) % MCV (80.0-100.0) fL MCH (25.0-35.0) pg MCHC (31.0-37.0) g/dL RDW (11.5-15.5) % Plt Count (150-450) k/uL Neutrophils % % Lymphocytes % % Monocytes % % Eosinophils % % Basophils % % Neutrophils # (1.3-7.7) k/uL Lymphocytes # (1.0-4.8) k/uL Monocytes # (0-1.0) k/uL Eosinophils # (0-0.7) k/uL Basophils # (0-0.2) k/uL Hypochromasia PT (9.0-12.0) sec INR (<1.2) APTT (22.0-30.0) sec Sodium 143 (137-145) mmol/L Potassium 5.1 (3.5-5.1) mmol/L Chloride 111 H (98-107) mmol/L Carbon Dioxide 23 (22-30) mmol/L Anion Gap 9 mmol/L BUN 56 H (7-17) mg/dL Creatinine 1.69 H (0.52-1.04) mg/dL Est GFR (CKD-EPI)AfAm 37 (>60 ml/min/1.73 sqM) Est GFR (CKD-EPI)NonAf 32 (>60 ml/min/1.73 sqM) Glucose 157 H (74-99) mg/dL Calcium 9.0 (8.4-10.2) mg/dL Magnesium 1.8 (1.6-2.3) mg/dL Total Bilirubin 0.4 (0.2-1.3) mg/dL AST 20 (14-36) U/L ALT 29 (9-52) U/L Alkaline Phosphatase 87 (38-126) U/L Total Creatine Kinase (30-135) U/L CK-MB (CK-2) (0.0-2.4) ng/mL CK-MB (CK-2) Rel Index Troponin I (0.000-0.034) ng/mL NT-Pro-B Natriuret Pep 1090 pg/mL Total Protein 6.8 (6.3-8.2) g/dL Albumin 3.6 (3.5-5.0) g/dL Blood Type A Positive Blood Type Recheck No Antibody Screen NEGATIVE Spec Expiration Date 06/20/2018 - 6210 - EKG Data -: EKG Interpreted by Me (EKG shows normal sinus rhythm rate of 81, W[place] 180, QRS 74, QTc 460) EKG shows normal: sinus rhythm Rate: normal - Radiology Data Radiology results: report reviewed (Chest x-ray is positive CHF), image reviewed Disposition Clinical Impression: Peripheral edema, CHF exacerbation, Congestive heart failure, Chronic kidney disease Disposition: ADMITTED IP TO THIS HOSP Condition: Fair Is patient prescribed a controlled substance at d/c from ED?: No Referrals: Gale Amin MD [Primary Care Provider] - 1-2 days
[2018-06-17 19:08] LABS: Basophils % (A) 1 %; Eosinophils # (A) 0.4 k/uL (0-0.7); Eosinophils % (A) 5 %; HCT 28.3 % (34.0-46.0); HGB 9.1 gm/dL (11.4-16.0); Hypochromasia Slight; Lymphocytes # (A) 1.1 k/uL (1.0-4.8); Lymphocytes % (A) 12 %; MCHC 32.2 g/dL (31.0-37.0); MCV 90.1 fL (80.0-100.0); Monocytes # (A) 0.4 k/uL (0-1.0); Monocytes % (A) 5 %; Neutrophils # (A) 6.6 k/uL (1.3-7.7); Neutrophils % (A) 76 %; Platelet Count 305 k/uL (150-450); RBC 3.14 m/uL (3.80-5.40); RDW 14.4 % (11.5-15.5); WBC 8.7 k/uL (3.8-10.6)
[2018-06-17 19:18] LABS: Albumin 3.6 g/dL (3.5-5.0); Magnesium 1.8 mg/dL (1.6-2.3); Potassium 5.1 mmol/L (3.5-5.1); Total Bilirubin 0.4 mg/dL (0.2-1.3); Total Protein 6.8 g/dL (6.3-8.2)
[2018-06-17 19:20] LABS: Creatine Kinase 202 U/L (30-135)
[2018-06-17 19:23] LABS: Prothrombin Time 9.6 sec (9.0-12.0)
[2018-06-17 19:33] LABS: Creatine Kinase MB 3.9 ng/mL (0.0-2.4); Troponin I <0.012 ng/mL (0.000-0.034)
[2018-06-17 19:58] LABS: Partial Thromboplastin Time 18.6 sec (22.0-30.0)
[2018-06-17] MEDS ORDERED: FUROSEMIDE 10 MG/ML 4 ML VIAL IV STA (20:51)
--- NOTE | 2018-06-17 21:18 | XR ---
EXAMINATION TYPE: XR chest 2V DATE OF EXAM: 06/17/2018 COMPARISON: Prior chest x-ray April 26, 2018. HISTORY: History of CHF, hypertension, and coronary artery disease presents with chest pain and short ness of breath. TECHNIQUE: Frontal and lateral views of the chest are obtained. FINDINGS: There is redemonstration of cardiomegaly. There is no central vascular congestion along with tiny bilateral pleural effusions as there is blunting of posterior costophrenic angles. No suspi cious focal airspace opacity or pneumothorax is present bilaterally. The osseous structures are intac t. IMPRESSION: Findings consistent with CHF exacerbation as there is cardiomegaly with new central vasc ular congestion and tiny bilateral pleural effusions noted. Correlate clinically.
[2018-06-17] MEDS ORDERED: LABETALOL 5 MG/ML VIAL MDV IVP STA (22:39)
[2018-06-17 23:38] LABS: Glucose,Whole Blood 186 mg/dL (75-99)
[2018-06-17] MEDS ORDERED: ACETAMINOPHEN TAB 325 MG TAB PO PRN (23:54)
[2018-06-17] MEDS ORDERED: ALPRAZolam 0.25 MG TAB PO PRN (23:55)
[2018-06-18] MEDS ORDERED: INSULIN DETEMIR 100 UNIT/ML 10 ML VIAL SQ SCH
[2018-06-18] MEDS: amLODIPine 5 MG TAB PO SCH ×3 (00:49→20:34)
[2018-06-18] MEDS: LISINOPRIL 10 MG TAB PO SCH ×2 (00:49→08:37)
[2018-06-18] MEDS: ATORVASTATIN 80 MG TAB PO SCH ×2 (00:49→20:34)
[2018-06-18] MEDS: METOPROLOL SUCCINATE (ER) 25 MG TAB.ER.24H PO SCH ×3 (00:50→20:34)
[2018-06-18] MEDS ORDERED: FUROSEMIDE 10 MG/ML 4 ML VIAL IV SCH (05:00)
[2018-06-18 06:55] LABS: Glucose,Whole Blood 218 mg/dL (75-99)
[2018-06-18] MEDS: INSULIN ASPART 100 UNIT/ML 1 ML 10 ML VIAL SQ SCH ×5 (07:46→20:35)
[2018-06-18] MEDS: ISOSORBIDE MONONITRATE ER 30 MG TAB.ER.24H PO SCH (08:37)
[2018-06-18] MEDS: LORATADINE 10 MG TAB PO SCH (08:37)
[2018-06-18] MEDS: ASPIRIN 81 MG PO SCH (08:37)
[2018-06-18] MEDS: FERROUS SULFATE 325 MG TAB PO SCH (08:37)
--- NOTE | 2018-06-18 08:55 | P.CRDCN ---
History of Present Illness History of present illness: Mrs. Beach is a pleasant 63-year-old female past medical history significant for chronic diastolic heart failure, hypertension, dyslipidemia, diabetes mellitus, chronic kidney disease, coronary artery disease s/p angioplasty distal RCA 2014 and morbid obesity. She follows with Dr. Núñez in the office. We have been asked to see her in consultation for heart failure symptoms. She states she has been feeling progressively short of breath with exertion over the previous week. When walking around the house she can't complete her typical activities without having to catch her breath. She also describes feeling paroxysmal nocturnal dyspnea and gets increased shortness of breath when laying flat. She went on vacation last week and her salt intake was increased, symptoms seem to have started after that. No significant weight gain she can speak of but significant pitting edema to lower extremities. She also feels her heart palpitating when she is exerting herself with no chest pain. She follows with Dr. Byers with nephrology. She states she missed her Procrit injection last week she was on vacation. EKG reveals sinus mechanism with no acute ST or T-wave abnormalities. Chest xray indicates vascular congestion with small bilateral pleural effusions. Laboratory data reviewed, hemoglobin 9.1, platelets 305, sodium 143, potassium 5.1, magnesium 1.8, creatinine 1.69, GFR 32, cardiac enzymes negative 1, NT proBNP 1090. Current cardiac medications include hydralazine 50 mg 3 times a day, amlodipine 5 mg twice a day, Demadex 20 mg twice a day, Toprol 75 mg twice a day, Zaroxolyn 2.5 mg on Wednesdays and Fridays, lisinopril 10 mg daily, Imdur 30 mg daily, atorvastatin 80 mg daily and aspirin 81 mg daily. She has been initiated on Lasix IV 40 mg 3 times a day since admission. Most recent echocardiogram obtained in September 2017 reveals preserved left ventricular systolic function with ejection fraction 55-60%, mildly dilated left atrium, mild aortic valve sclerosis, mild MR, mild TR and mild pulmonary hypertension with an RVSP of 41 mmHg. Review of Systems At the time of my exam: CONSTITUTIONAL: Denies fever. Denies chills. EYES: Denies blurred vision. Denies vision changes. Denies eye pain. EARS, NOSE, MOUTH & THROAT: Denies headache. Denies sore throat. Denies ear pain. CARDIOVASCULAR: Denies chest pain. Complains of exertional shortness of breath. Complains of orthopnea. Complains of PND. Denies palpitations. RESPIRATORY: Complains of cough. GASTROINTESTINAL: Denies abdominal pain. Denies diarrhea. Denies constipation. Denies nausea. Denies vomiting. MUSCULOSKELETAL: Denies myalgias. INTEGUMENTARY: Denies pruitis. Denies rash. NEUROLOGIC: Denies numbness. Denies tingling. Denies weakness. PSYCHIATRIC: Denies anxiety. Denies depression. ENDOCRINE: Denies fatigue. Denies weight change. Denies polydipsia. Denies polyurina. GENITOURINARY: Denies burning, hematuria or urgency with micturation. HEMATOLOGIC: Denies history of anemia. Denies bleeding. Past Medical History Past Medical History: Blood Disorder, Coronary Artery Disease (CAD), Heart Failure, Diabetes Mellitus, Hyperlipidemia, Hypertension, Myocardial Infarction ([place]) Additional Past Medical History / Comment(s): edema, seasonal allergies, Diabetic ulcer-SEES DR ZELAYA FOR WOUND CARE, anemia, neuropathy, CKD Last Myocardial Infarction Date:: 01/10/15 History of Any Multi-Drug Resistant Organisms: None Reported Past Surgical History: Heart Catheterization With Stent Additional Past Surgical History / Comment(s): PT HAD STENT TO DISTAL RCA IN DECEMBER 2014, carpal tunnel bilateral hands, Eye surgery to cauterize bleeding November, Past Anesthesia/Blood Transfusion Reactions: Family History of Problems w/ Anesthesia, Motion Sickness Additional Past Anesthesia/Blood Transfusion Reaction / Comment(s): states mother had difficulty coming out of anesthesia Date of Last Stent Placement:: 12/30 Past Psychological History: Anxiety Additional Psychological History / Comment(s): Pt states she lives in her home with her adult neice and nephew. She is independent. She uses no assistive device. She drives. Smoking Status: Never smoker Past Alcohol Use History: None Reported Past Drug Use History: None Reported - Past Family History Brother(s) Family Medical History: Cancer Sister(s) Family Medical History: Diabetes Mellitus, Hypertension, Myocardial Infarction ( [place]), Vascular Disorder Additional Family Medical History / Comment(s): post procedure of five stents Mother Family Medical History: CVA/TIA, Diabetes Mellitus, Myocardial Infarction ([place]) Additional Family Medical History / Comment(s): TIA's, PVD. Mother at age 65yrs. Father Family Medical History: Dementia, Diabetes Mellitus, Hypertension Additional Family Medical History / Comment(s): Father at age 72 yrs. Medications and Allergies Home Medications Medication Instructions Recorded Confirmed Type Loratadine [Claritin] 10 mg PO DAILY 01/05/15 06/17/18 History Aspirin 81 mg PO DAILY 04/16/15 06/17/18 History Atorvastatin [Lipitor] 80 mg PO HS 10/14/15 06/17/18 History Insulin Glulisine [Apidra] 24 unit SQ TID 11/05/15 06/17/18 History Insulin Glargine [Lantus] 40 unit SQ BID 01/22/17 06/17/18 History amLODIPine [Norvasc] 5 mg PO BID 08/15/17 06/17/18 History hydrALAZINE HCL [Apresoline] 50 mg PO TID-W/MEALS 08/15/17 06/17/18 History Ranitidine HCl 150 mg PO BID 09/20/17 06/17/18 History Isosorbide Mononitrate ER [Imdur] 30 mg PO DAILY tab.er.24h 10/06/17 06/17/18 Rx Ferrous Sulfate [Iron (65 MG 325 mg PO DAILY 04/15/18 06/17/18 History Elemental)] Metolazone [Zaroxolyn] 2.5 mg PO WEFR 04/15/18 06/17/18 History Epoetin Miguel [Procrit] 20,000 unit SQ Q7DAYS 06/17/18 06/17/18 History Insulin Glulisine [Apidra] See Protocol SQ TID 06/17/18 06/17/18 History Lisinopril [Zestril] 10 mg PO DAILY 06/17/18 06/17/18 History Metoprolol Succinate [Toprol XL] 75 mg PO BID 06/17/18 06/17/18 History Torsemide [Demadex] 20 mg PO BID 06/17/18 06/17/18 History Allergies Allergy/AdvReac Type Severity Reaction Status Date / Time cephalexin monohydrate Allergy Rash/Hives Verified 06/17/18 18:54 [From Keflex] ciprofloxacin [From Cipro] Allergy Swelling Verified 06/17/18 18:54 ciprofloxacin HCl Allergy Swelling Verified 06/17/18 18:54 [From Cipro] codeine Allergy Unknown Verified 06/17/18 18:54 latex Allergy Itching Verified 06/17/18 18:54 sulfamethoxazole Allergy Itching Verified 06/17/18 18:54 [From Bactrim] trimethoprim [From Bactrim] Allergy Itching Verified 06/17/18 18:54 adhesive tape AdvReac Itching Verified 06/17/18 18:54 Physical Exam Vitals: Vital Signs Temp Pulse Pulse Resp BP BP Pulse Ox 06/18/18 04:00 20 06/18/18 03:35 98.9 F 78 20 146/65 94 L 06/18/18 00:57 18 96 06/18/18 00:45 84 18 153/71 90 L 06/18/18 00:00 20 06/17/18 23:12 98.6 F 82 20 180/77 91 L 06/17/18 20:36 75 20 164/71 96 06/17/18 18:02 97.9 F 82 18 171/67 93 L Intake and Output 06/17/18 06/18/18 06/18/18 22:59 06:59 14:59 Intake Total 200 Balance 200 Intake: Amount of Fluid Infused ( 200 ml) Other: Voiding Method Toilet # Voids 2 Weight 120.2 kg 125.4 kg GENERAL: This is a 63-year-old female in no apparent distress at the time of my examination. HEENT: Head is atraumatic, normocephalic. Pupils are equal, round. Sclerae anicteric. Conjunctivae are clear. Mucous membranes of the mouth are moist. Neck is supple. There is no jugular venous distention. No carotid bruit is heard. LUNGS: Bibasilar rales, faint expiratory wheeze, no rhonchi. Diminished bilaterally. No chest wall tenderness is noted on palpation or with deep breathing. HEART: Regular rate and rhythm with systolic ejection murmur at the base. ABDOMEN: Soft, nontender. Bowel sounds are heard. No organomegaly noted. EXTREMITIES: 2+ pitting edema. Right left with imani wrap and dressing in place for lower extremity wound. No calf tenderness noted. VASCULAR: Radial and dorsalis pedis pulses palpated, no evidence of clubbing. NEUROLOGIC: Patient is awake, alert and oriented x3. Results 06/17/18 18:25 06/17/18 18:25 Cardiac Enzymes 06/17/18 06/17/18 Range/Units 18:25 18:25 AST 20 (14-36) U/L CK-MB (CK-2) 3.9 H (0.0-2.4) ng/mL Troponin I <0.012 (0.000-0.034) ng/mL Coagulation 06/17/18 Range/Units 18:25 PT 9.6 (9.0-12.0) sec APTT 18.6 L (22.0-30.0) sec CBC 06/17/18 Range/Units 18:25 WBC 8.7 (3.8-10.6) k/uL RBC 3.14 L (3.80-5.40) m/uL Hgb 9.1 L (11.4-16.0) gm/dL Hct 28.3 L (34.0-46.0) % Plt Count 305 (150-450) k/uL Comprehensive Metabolic Panel 06/17/18 Range/Units 18:25 Sodium 143 (137-145) mmol/L Potassium 5.1 (3.5-5.1) mmol/L Chloride 111 H (98-107) mmol/L Carbon Dioxide 23 (22-30) mmol/L BUN 56 H (7-17) mg/dL Creatinine 1.69 H (0.52-1.04) mg/dL Glucose 157 H (74-99) mg/dL Calcium 9.0 (8.4-10.2) mg/dL AST 20 (14-36) U/L ALT 29 (9-52) U/L Alkaline Phosphatase 87 (38-126) U/L Total Protein 6.8 (6.3-8.2) g/dL Albumin 3.6 (3.5-5.0) g/dL Current Medications Generic Name Dose Route Start Last Admin Trade Name Freq PRN Reason Stop Dose Admin Acetaminophen 650 mg 06/17/18 23:54 Tylenol Tab PO Q4HR PRN Fever and/ or Pain Alprazolam 0.25 mg 06/17/18 23:55 Xanax PO QID PRN Anxiety Amlodipine Besylate 5 mg 06/18/18 00:00 06/18/18 00:49 Norvasc PO 5 mg BID ELISABETH Administration Aspirin 81 mg 06/18/18 09:00 Aspirin PO DAILY [facility] Atorvastatin Calcium 80 mg 06/17/18 23:45 06/18/18 00:49 Lipitor PO 80 mg HS ELISABETH Administration Famotidine 20 mg 06/18/18 09:00 Pepcid PO BID [facility] Ferrous Sulfate 325 mg 06/18/18 09:00 Feosol PO DAILY [facility] Furosemide 40 mg 06/18/18 05:00 06/18/18 05:04 Lasix IV 40 mg Q8H ELISABETH Administration Hydralazine HCl 50 mg 06/18/18 07:30 Apresoline PO TID-W/MEALS [facility] Insulin Aspart 0 unit 06/18/18 07:30 Novolog SQ ACHS [facility] Protocol Insulin Detemir 40 unit 06/18/18 06:35 Levemir SQ BID [facility] Isosorbide Mononitrate 30 mg 06/18/18 09:00 Imdur PO DAILY [facility] Lisinopril 10 mg 06/17/18 23:45 06/18/18 00:49 Zestril PO Not Given DAILY [facility] Loratadine 10 mg 06/18/18 09:00 Claritin PO DAILY [facility] Metolazone 2.5 mg 06/19/18 09:00 Zaroxolyn PO WEFR [facility] Metoprolol Succinate 75 mg 06/18/18 00:00 06/18/18 00:50 Toprol Xl PO 75 mg BID ELISABETH Administration Intake and Output 06/17/18 06/18/18 06/18/18 22:59 06:59 14:59 Intake Total 200 Balance 200 Intake: Amount of Fluid Infused ( 200 ml) Other: Voiding Method Toilet # Voids 2 Weight 120.2 kg 125.4 kg 06/17/18 18:25 06/17/18 18:25 Assessment and Plan Assessment: ASSESSMENT Acute on chronic systolic heart failure, EF 55-60% 09/2017 Chronic kidney disease, GFR 32. Follows with Dr. John as an outpatient. Hypertension Dyslipidemia History of coronary artery disease, stent to distal RCA 2014 Diabetes mellitus Chronic right lower extremity wound Morbid obesity, BMI 43.3 PLAN Obtain 2D echocardiogram and doppler study to assess cardiac structure and function. Continue with gentle diuresis. Obtain daily weights and document intake and output accurately with a hat. Follow kidney function and electrolytes tomorrow. Further recommendations to follow based on clinical course. Thank you kindly for this consultation. Nurse Practitioner note has been reviewed, I agree with a documented findings and plan of care. Patient was seen and examined.
[2018-06-18] MEDS ORDERED: FAMOTIDINE 20 MG TAB PO SCH (09:00)
[2018-06-18] MEDS: hydrALAZINE HCL 50 MG TAB PO SCH ×3 (09:23→17:50)
[2018-06-18] MEDS: INSULIN DETEMIR 100 UNIT/ML 10 ML VIAL SQ SCH ×2 (09:24→20:35)
[2018-06-18] MEDS: FUROSEMIDE 10 MG/ML 4 ML VIAL IV SCH ×2 (09:27→20:35)
[2018-06-18 11:51] VITALS: BMI 43.2
[2018-06-18 12:17] LABS: Glucose,Whole Blood 144 mg/dL (75-99)
--- NOTE | 2018-06-18 13:23 | ECHOF ---
Referral Reason:sob MEASUREMENTS -------- HEIGHT: 170.2 cm WEIGHT: 125.2 kg BP: IVSd: 1.7 cm (0.6 - 1.1) LVIDd: 4.2 cm (3.9 - 5.3) LVPWd: 1.7 cm (0.6 - 1.1) IVSs: 2.4 cm LVIDs: 2.7 cm LVPWs: 2.2 cm Ao Diam: 3.0 cm (2.0 - 3.7) AV Cusp: 1.6 cm (1.5 - 2.6) LA Diam: 3.8 cm (2.7 - 3.8) MV EXCURSION: 20.304 mm (> 18.000) MV EF SLOPE: 113 mm/s (70 - 150) EPSS: 1.1 cm MV E Porfirio: 1.19 m/s MV DecT: 258 ms MV A Porfirio: 0.85 m/s MV E/A Ratio: 1.39 RAP: 5.00 mmHg RVSP: 18.26 mmHg FINDINGS -------- Sinus rhythm. This was a technically difficult study with suboptimal views. The left ventricular size is normal. There is severe concentric left ventricular hypertrophy. Ove rall left ventricular systolic function is normal with, an EF between 55 - 60 %. The right ventricle is normal in size and function. The left atrium is normal in size. The right atrium is normal in size. Lumason used The aortic valve is trileaflet and appears structurally normal. Mild mitral regurgitation is present. Mild tricuspid regurgitation present. The right ventricular systolic pressure, as measured by Doppl er, is 18.26mmHg. There is no pulmonic regurgitation present. The aortic root size is normal. There is no pericardial effusion. CONCLUSIONS -------- 1. Sinus rhythm. 2. This was a technically difficult study with suboptimal views. 3. The left ventricular size is normal. 4. There is severe concentric left ventricular hypertrophy. 5. Overall left ventricular systolic function is normal with, an EF between 55 - 60 %. 6. The left atrium is normal in size. 7. Lumason used 8. The aortic valve is trileaflet and appears structurally normal. 9. Mild mitral regurgitation is present. 10. Mild tricuspid regurgitation present. 11. The right ventricular systolic pressure, as measured by Doppler, is 18.26mmHg. 12. There is no pulmonic regurgitation present. 13. The aortic root size is normal. 14. There is no pericardial effusion. [employer]ENT: Viviana Hager RDCS
--- NOTE | 2018-06-18 15:28 | P.HPIM ---
History of Present Illness 63-year-old pleasant female the carotid compensative short of breath, orthopnea proximal nocturnal dyspnea which is questionable has been going on for last few days patient is found to have bilateral pulmonary edema with mild the pleural effusions normal ejection fraction normal RVSP. Patient denied any chest pain. Patient was started on IV Lasix for chronic diastolic dysfunction patient does have history of coronary artery disease. Patient denied any fever chills cough. Patient does have chronic kidney disease stage III baseline creatinine is around 1.6-1.9 patient's present creatinine is around that now. Patient was also complaining of bilateral pedal edema BNP is around house and. Patient denied any fever chills dysuria pain. Patient does have sleep apnea uses CPAP machine at home. Review of Systems REVIEW OF SYSTEMS: CONSTITUTIONAL: No fever, no malaise, no fatigue. HEENT: No recent visual problems or hearing problems. Denied any sore throat. CARDIOVASCULAR: As mentioned above PULMONARY: No shortness of breath, no cough, no hemoptysis. GASTROINTESTINAL: No diarrhea, no nausea, no vomiting, no abdominal pain. Normoactive bowel sounds. NEUROLOGICAL: No headaches, no weakness, no numbness. HEMATOLOGICAL: Denies any bleeding or petechiae. GENITOURINARY: Denies any burning micturition, frequency, or urgency. MUSCULOSKELETAL/RHEUMATOLOGICAL: Denies any joint pain, swelling, or any muscle pain. ENDOCRINE: Denies any polyuria or polydipsia. The rest of the 14-point review of systems is negative. Past Medical History Past Medical History: Blood Disorder, Coronary Artery Disease (CAD), Heart Failure, Diabetes Mellitus, Hyperlipidemia, Hypertension, Myocardial Infarction (MA) Additional Past Medical History / Comment(s): edema, seasonal allergies, Diabetic ulcer-SEES DR ZELAYA FOR WOUND CARE, anemia, neuropathy, CKD Last Myocardial Infarction Date:: 01/10/15 History of Any Multi-Drug Resistant Organisms: None Reported Past Surgical History: Heart Catheterization With Stent Additional Past Surgical History / Comment(s): PT HAD STENT TO DISTAL RCA IN DECEMBER 2014, carpal tunnel bilateral hands, Eye surgery to cauterize bleeding November, Past Anesthesia/Blood Transfusion Reactions: Family History of Problems w/ Anesthesia, Motion Sickness Additional Past Anesthesia/Blood Transfusion Reaction / Comment(s): states mother had difficulty coming out of anesthesia Date of Last Stent Placement:: 12/30 Past Psychological History: Anxiety Additional Psychological History / Comment(s): Pt states she lives in her home with her adult iris and nephew. She is independent. She uses no assistive device. She drives. Smoking Status: Never smoker Past Alcohol Use History: None Reported Past Drug Use History: None Reported - Past Family History Brother(s) Family Medical History: Cancer Sister(s) Family Medical History: Diabetes Mellitus, Hypertension, Myocardial Infarction ( [place]), Vascular Disorder Additional Family Medical History / Comment(s): post procedure of five stents Mother Family Medical History: CVA/TIA, Diabetes Mellitus, Myocardial Infarction (MA) Additional Family Medical History / Comment(s): TIA's, PVD. Mother at age 65yrs. Father Family Medical History: Dementia, Diabetes Mellitus, Hypertension Additional Family Medical History / Comment(s): Father at age 72 yrs. Medications and Allergies Home Medications Medication Instructions Recorded Confirmed Type Loratadine [Claritin] 10 mg PO DAILY 01/05/15 06/17/18 History Aspirin 81 mg PO DAILY 04/16/15 06/17/18 History Atorvastatin [Lipitor] 80 mg PO HS 10/14/15 06/17/18 History Insulin Glulisine [Apidra] 24 unit SQ TID 11/05/15 06/17/18 History Insulin Glargine [Lantus] 40 unit SQ BID 01/22/17 06/17/18 History amLODIPine [Norvasc] 5 mg PO BID 08/15/17 06/17/18 History hydrALAZINE HCL [Apresoline] 50 mg PO TID-W/MEALS 08/15/17 06/17/18 History Ranitidine HCl 150 mg PO BID 09/20/17 06/17/18 History Isosorbide Mononitrate ER [Imdur] 30 mg PO DAILY tab.er.24h 10/06/17 06/17/18 Rx Ferrous Sulfate [Iron (65 MG 325 mg PO DAILY 04/15/18 06/17/18 History Elemental)] Metolazone [Zaroxolyn] 2.5 mg PO WEFR 04/15/18 06/17/18 History Epoetin Miguel [Procrit] 20,000 unit SQ [id number] 06/17/18 06/17/18 History Insulin Glulisine [Apidra] See Protocol SQ TID 06/17/18 06/17/18 History Lisinopril [Zestril] 10 mg PO DAILY 06/17/18 06/17/18 History Metoprolol Succinate [Toprol XL] 75 mg PO BID 06/17/18 06/17/18 History Torsemide [Demadex] 20 mg PO BID 06/17/18 06/17/18 History Allergies Allergy/AdvReac Type Severity Reaction Status Date / Time cephalexin monohydrate Allergy Rash/Hives Verified 06/17/18 18:54 [From Keflex] ciprofloxacin [From Cipro] Allergy Swelling Verified 06/17/18 18:54 ciprofloxacin HCl Allergy Swelling Verified 06/17/18 18:54 [From Cipro] codeine Allergy Unknown Verified 06/17/18 18:54 latex Allergy Itching Verified 06/17/18 18:54 sulfamethoxazole Allergy Itching Verified 06/17/18 18:54 [From Bactrim] trimethoprim [From Bactrim] Allergy Itching Verified 06/17/18 18:54 adhesive tape AdvReac Itching Verified 06/17/18 18:54 Physical Exam Vitals: Vital Signs Temp Pulse Pulse Resp BP BP BP 06/18/18 11:25 98.2 F 73 18 152/75 06/18/18 07:25 98.8 F 75 18 151/73 06/18/18 04:00 20 06/18/18 03:35 98.9 F 78 20 146/65 06/18/18 00:57 18 06/18/18 00:45 84 18 153/71 06/18/18 00:00 20 06/17/18 23:12 98.6 F 82 20 180/77 06/17/18 20:36 75 20 164/71 06/17/18 18:02 97.9 F 82 18 171/67 Pulse Ox 06/18/18 11:25 95 06/18/18 07:25 95 06/18/18 04:00 06/18/18 03:35 94 L 06/18/18 00:57 96 06/18/18 00:45 90 L 06/18/18 00:00 06/17/18 23:12 91 L 06/17/18 20:36 96 06/17/18 18:02 93 L Intake and Output 06/18/18 06/18/1806/18/18 06:59 14:59 22:59 Intake Total 200 840 Balance 200 840 Intake: Amount of Fluid Infused ( 200 ml) Oral 840 Other: Voiding Method Toilet Toilet # Voids 2 Weight 125.4 kg 125.4 kg PHYSICAL EXAMINATION: GENERAL: The patient is alert and oriented x3, not in any acute distress. Well developed, well nourished. HEENT: Pupils are round and equally reacting to light. EOMI. No scleral icterus. No conjunctival pallor. Normocephalic, atraumatic. No pharyngeal erythema. No thyromegaly. CARDIOVASCULAR: S1 and S2 present. No murmurs, rubs, or gallops. Unable to appreciate any JVD PULMONARY: IVS or crackles or crackles are appreciated good air entry into bilateral lung vazquez ABDOMEN: Soft, nontender, nondistended, normoactive bowel sounds. No palpable organomegaly. MUSCULOSKELETAL: No joint swelling or deformity. EXTREMITIES: No cyanosis, clubbing, or is probably mild pitting pedal edema NEUROLOGICAL: Gross neurological examination did not reveal any focal deficits. SKIN: No rashes. Results CBC & Chem 7: 06/17/18 18:25 06/17/18 18:25 Labs: Abnormal Lab Results - Last 24 Hours (Table) 06/17/18 06/17/18 06/17/18 Range/Units 18:25 18:25 18:25 RBC 3.14 L (3.80-5.40) m/uL Hgb 9.1 L (11.4-16.0) gm/dL Hct 28.3 L (34.0-46.0) % APTT 18.6 L (22.0-30.0) sec Chloride (98-107) mmol/L BUN (7-17) mg/dL Creatinine (0.52-1.04) mg/dL Glucose (74-99) mg/dL POC Glucose (mg/dL) (75-99) mg/dL Total Creatine Kinase 202 H (30-135) U/L CK-MB (CK-2) 3.9 H (0.0-2.4) ng/mL 06/17/18 06/17/18 06/18/18 Range/Units 18:25 23:35 06:53 RBC (3.80-5.40) m/uL Hgb (11.4-16.0) gm/dL Hct (34.0-46.0) % APTT (22.0-30.0) sec Chloride 111 H (98-107) mmol/L BUN 56 H (7-17) mg/dL Creatinine 1.69 H (0.52-1.04) mg/dL Glucose 157 H (74-99) mg/dL POC Glucose (mg/dL) 186 H 218 H (75-99) mg/dL Total Creatine Kinase (30-135) U/L CK-MB (CK-2) (0.0-2.4) ng/mL 06/18/18 Range/Units 12:12 RBC (3.80-5.40) m/uL Hgb (11.4-16.0) gm/dL Hct (34.0-46.0) % APTT (22.0-30.0) sec Chloride (98-107) mmol/L BUN (7-17) mg/dL Creatinine (0.52-1.04) mg/dL Glucose (74-99) mg/dL POC Glucose (mg/dL) 144 H (75-99) mg/dL Total Creatine Kinase (30-135) U/L CK-MB (CK-2) (0.0-2.4) ng/mL Thrombosis Risk Factor Assmnt - Choose All That Apply Each Factor Represents 1 point: Obesity (BMI >25) Each Risk Factor Represents 2 Points: Age 61-74 years Thrombosis Risk Factor Assessment Total Risk Factor Score: 3 Thrombosis Risk Factor Assessment Level: Moderate Risk Assessment and Plan Plan: -Shortness of breath: Probably secondary to congestive heart failure chronic diastolic dysfunction with acute exacerbation, patient was started on IV Lasix which will be continued -Coronary artery disease -Type 2 diabetes mellitus patient will be resumed on home regimen titrate depending on her blood sugars here -Hyperlipidemia -Hypertension -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 Repeat basic metabolic profile tomorrow if her symptoms improved will be discharged tomorrow on oral Lasix patient uses torsemide at home.
[2018-06-18 16:00] LABS: Hemoglobin A1C 6.7 % (4.0-6.0)
[2018-06-18 17:32] LABS: Glucose,Whole Blood 132 mg/dL (75-99)
[2018-06-18 20:33] LABS: Glucose,Whole Blood 202 mg/dL (75-99)
[2018-06-18] MEDS ORDERED: SODIUM CHLORIDE 0.65% NASAL SPRAY 44 ML BTL NASAL PRN (20:33)
[2018-06-19 06:50] LABS: Glucose,Whole Blood 102 mg/dL (75-99)
--- NOTE | 2018-06-19 07:42 | PN ---
PROGRESS NOTE Mrs. Beach is a 63-year-old female with a known history of congestive heart failure on basis of diastolic dysfunction, history of chronic kidney disease, who recently was noncompliant with her salt intake, presented with symptoms of worsening dyspnea. She is feeling slightly better today. She denies any chest pain. She denies any dizziness or palpitation. She denies any nausea. Her breathing is unchanged. She continues to be at this time on Lasix 40 mg IV q.12 hours, iron, Lipitor 80 mg daily, aspirin 81 mg daily, amlodipine 5 mg twice a day, insulin, isosorbide mononitrate 30 mg daily, Zestril 10 mg daily, metolazone for 2.5 mg 4 times a week, metoprolol succinate 75 mg twice a day. PHYSICAL EXAMINATION: Blood pressure is 133/60 with the heart rate in the 60s. LUNGS: Clear. HEART: Regular rate and rhythm. S1, S2. No S3 with a systolic murmur. No diastolic murmur. ABDOMEN: Soft, nontender. Positive bowel sounds. No organomegaly. EXTREMITIES: +1 to 2 edema bilaterally. LAB DATA: Her renal functions are pending. IMPRESSION: 1. Symptoms of congestive heart failure with diastolic dysfunction. 2. History of chronic kidney disease. 3. Hypertension. 4. Prior history of anemia. RECOMMENDATION: I will review the results of her renal function. Continue the present therapy. Increase her level activity. Depending on her progress, I would expect she should be able to be discharged home soon and follow as an outpatient. MMODL / IJN: [id number] /
[2018-06-19] MEDS: INSULIN ASPART 100 UNIT/ML 1 ML 10 ML VIAL SQ SCH ×7 (07:53→20:49)
[2018-06-19] MEDS: hydrALAZINE HCL 50 MG TAB PO SCH ×3 (08:00→17:36)
[2018-06-19] MEDS: ASPIRIN 81 MG PO SCH (08:00)
[2018-06-19] MEDS: LORATADINE 10 MG TAB PO SCH (08:00)
[2018-06-19] MEDS: FERROUS SULFATE 325 MG TAB PO SCH (08:00)
[2018-06-19] MEDS: ISOSORBIDE MONONITRATE ER 30 MG TAB.ER.24H PO SCH (08:00)
[2018-06-19] MEDS: FAMOTIDINE 20 MG TAB PO SCH (08:00)
[2018-06-19] MEDS: LISINOPRIL 10 MG TAB PO SCH (08:00)
[2018-06-19] MEDS: METOPROLOL SUCCINATE (ER) 25 MG TAB.ER.24H PO SCH ×2 (08:00→20:55)
[2018-06-19] MEDS: amLODIPine 5 MG TAB PO SCH ×2 (08:01→20:56)
[2018-06-19] MEDS: FUROSEMIDE 10 MG/ML 4 ML VIAL IV SCH (08:01)
[2018-06-19] MEDS: INSULIN DETEMIR 100 UNIT/ML 10 ML VIAL SQ SCH ×2 (08:36→20:54)
[2018-06-19] MEDS ORDERED: METOLAZONE 2.5 MG TAB PO SCH (09:00)
[2018-06-19 09:46] LABS: Magnesium 1.8 mg/dL (1.6-2.3); Potassium 5.5 mmol/L (3.5-5.1)
[2018-06-19 12:21] LABS: Glucose,Whole Blood 142 mg/dL (75-99)
--- NOTE | 2018-06-19 13:11 | P.PN ---
Subjective Patient's respiratory status did improve. Patient is admitted for can start failure chronic diastolic dysfunction with acute exacerbation. Her kidney function has worsened secondary to excessive diuretic therapy and IV Lasix will be switched to oral Lasix 40 twice a day patient was using torsemide and metolazone at home. Patient has elevated potassium as well lisinopril will be held unfortunately she already received lisinopril today. Recheck basic metabolic profile tomorrow Constitutional: Denied any fatigue denied any fever. Cardio vascular: denied any chest pain, palpitations Gastrointestinal denied any nausea vomiting Pulmonary: Denied any shortness of breath cough Neurologic denied any new focal deficits Objective - Vital Signs Vital signs: Vital Signs Temp 98.2 F 06/19/18 11:26 Pulse 70 06/19/18 11:26 Resp 18 06/19/18 11:26 BP 163/66 06/19/18 11:26 Pulse Ox 96 06/19/18 11:26 Intake & Output 06/18/18 06/19/18 06/19/18 18:59 06:59 18:59 Intake Total 1440 420 Balance 1440 420 Weight 125.4 kg 135.4 kg Intake: Oral 1440 420 Other: Voiding Method Toilet Toilet Toilet - Exam PHYSICAL EXAMINATION: GENERAL: The patient is alert and oriented x3, not in any acute distress. Well developed, well nourished. HEENT: Pupils are round and equally reacting to light. EOMI. No scleral icterus. No conjunctival pallor. Normocephalic, atraumatic. No pharyngeal erythema. No thyromegaly. CARDIOVASCULAR: S1 and S2 present. No murmurs, rubs, or gallops. Unable to appreciate any JVD PULMONARY: IVS or crackles or crackles are appreciated good air entry into bilateral lung vazquez ABDOMEN: Soft, nontender, nondistended, normoactive bowel sounds. No palpable organomegaly. MUSCULOSKELETAL: No joint swelling or deformity. EXTREMITIES: No cyanosis, clubbing, or is probably mild pitting pedal edema NEUROLOGICAL: Gross neurological examination did not reveal any focal deficits. SKIN: No rashes. - Labs CBC & Chem 7: 06/17/18 18:25 06/19/18 08:36 Labs: Abnormal Lab Results - Last 24 Hours (Table) 06/17/18 06/18/18 06/18/18 Range/Units 18:25 17:30 20:23 Potassium (3.5-5.1) mmol/L Chloride (98-107) mmol/L BUN (7-17) mg/dL Creatinine (0.52-1.04) mg/dL Glucose (74-99) mg/dL POC Glucose (mg/dL) 132 H 202 H (75-99) mg/dL Hemoglobin A1c 6.7 H (4.0-6.0) % 06/19/18 06/19/18 06/19/18 Range/Units 06:48 08:36 12:18 Potassium 5.5 H (3.5-5.1) mmol/L Chloride 110 H (98-107) mmol/L BUN 60 H (7-17) mg/dL Creatinine 2.01 H (0.52-1.04) mg/dL Glucose 136 H (74-99) mg/dL POC Glucose (mg/dL) 102 H 142 H (75-99) mg/dL Hemoglobin A1c (4.0-6.0) % Assessment and Plan Plan: -Shortness of breath: Probably secondary to congestive heart failure chronic diastolic dysfunction with acute exacerbation, patient was switched to oral Lasix because of renal failure from excessive diuretic therapy -Acute renal failure secondary to excessive diuretic therapy which we're cutting down -Hyperkalemia secondary to lisinopril and acute renal failure this will be held repeat basic metabolic profile tomorrow -Coronary artery disease -Type 2 diabetes mellitus patient will be resumed on home regimen titrate depending on her blood sugars here -Hyperlipidemia -Hypertension -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 Repeat basic metabolic profile tomorrow if her symptoms improved will be discharged tomorrow on oral Lasix patient uses torsemide at home.
[2018-06-19] MEDS ORDERED: BENZOCAINE/MENTHOL LOZENG 1 EACH LOZENGE MUCOUS MEM PRN (13:12)
[2018-06-19] MEDS: TRIAMCINOLONE ACET 0.5% CREAM 15 GM TUBE TOPICAL SCH ×2 (15:07→20:56)
[2018-06-19 16:34] LABS: Glucose,Whole Blood 146 mg/dL (75-99)
[2018-06-19] MEDS: FUROSEMIDE 40 MG TAB PO SCH (17:44)
[2018-06-19 18:59] LABS: Calcium 8.7 mg/dL (8.4-10.2)
[2018-06-19 20:48] LABS: Glucose,Whole Blood 210 mg/dL (75-99)
[2018-06-19] MEDS: ATORVASTATIN 80 MG TAB PO SCH (20:55)
[2018-06-20 06:16] LABS: Glucose,Whole Blood 155 mg/dL (75-99)
[2018-06-20] MEDS: INSULIN ASPART 100 UNIT/ML 1 ML 10 ML VIAL SQ SCH ×7 (06:34→21:22)
[2018-06-20] MEDS: hydrALAZINE HCL 50 MG TAB PO SCH ×3 (06:39→17:02)
[2018-06-20 06:58] LABS: Potassium 5.5 mmol/L (3.5-5.1)
[2018-06-20] MEDS: amLODIPine 5 MG TAB PO SCH ×2 (08:43→21:47)
[2018-06-20] MEDS: FERROUS SULFATE 325 MG TAB PO SCH (08:43)
[2018-06-20] MEDS: FAMOTIDINE 20 MG TAB PO SCH (08:43)
[2018-06-20] MEDS: ASPIRIN 81 MG PO SCH (08:43)
[2018-06-20] MEDS: INSULIN DETEMIR 100 UNIT/ML 10 ML VIAL SQ SCH (08:44)
[2018-06-20] MEDS: FUROSEMIDE 40 MG TAB PO SCH (08:44)
[2018-06-20] MEDS: ISOSORBIDE MONONITRATE ER 30 MG TAB.ER.24H PO SCH (08:45)
[2018-06-20] MEDS: METOPROLOL SUCCINATE (ER) 25 MG TAB.ER.24H PO SCH ×2 (08:45→21:47)
[2018-06-20] MEDS: LORATADINE 10 MG TAB PO SCH (08:45)
[2018-06-20] MEDS: TRIAMCINOLONE ACET 0.5% CREAM 15 GM TUBE TOPICAL SCH ×3 (08:46→21:49)
--- NOTE | 2018-06-20 10:47 | P.PN ---
Subjective Progress Note Date: 06/20/18 This is a 63-year-old female with history of congestive heart failure on the basis of diastolic dysfunction, chronic kidney disease, who presented to the hospital with symptoms of worsening dyspnea. She was seen and examined this morning, she is ready been up ambulating in the hallway today without any difficulty. Denies any shortness of breath. Her oxygen saturation does drop to 88% with ambulation. Blood pressure 154/60 with a heart rate in the 70s. Sodium 139, potassium 5.5, BUN 63, creatinine 1.9. From cardiology's perspective, she should be able to be discharged home today. We will make her a follow-up appointment to see Dr. Núñez in the office post discharge. Objective - Vital Signs Vital signs: Vital Signs Temp 97.8 F 06/20/18 08:00 Pulse 81 06/20/18 08:56 Resp 18 06/20/18 08:00 BP 155/63 06/20/18 08:00 Pulse Ox 91 L 06/20/18 08:56 Intake & Output 06/19/18 06/20/18 06/20/18 18:59 06:59 18:59 Intake Total 1080 240 Balance 1080 240 Weight 135.4 kg 134.4 kg Intake: Oral 1080 240 Other: Voiding Method Toilet Toilet - Exam PHYSICAL EXAMINATION: GENERAL: She 3-year-old female in no acute distress at the time of my examination HEENT: Head is atraumatic, normocephalic. Pupils equal, round. Sclera anicteric. Conjunctiva are clear. Mucous membranes of the mouth are moist. Neck is supple. There is no elevated jugular venous pressure. No carotid bruit is heard. HEART EXAMINATION: Heart S1 and S2 1 systolic murmur is heard. CHEST EXAMINATION: Lungs are clear to auscultation and precussion. No chest wall tenderness is noted on palpation or with deep breathing. ABDOMEN: Soft, nontender. Bowel sounds are heard. No organomegaly noted. EXTREMITIES: 2+ peripheral pulses with 1+ evidence of peripheral edema and no calf tenderness noted. NEUROLOGIC patient is awake, alert and oriented X3. . - Labs CBC & Chem 7: 06/17/18 18:25 06/20/18 06:12 Labs: Abnormal Lab Results - Last 24 Hours (Table) 06/19/18 06/19/18 06/19/18 Range/Units 12:18 16:27 18:30 Potassium 6.0 H (3.5-5.1) mmol/L BUN 64 H (7-17) mg/dL Creatinine 1.88 H (0.52-1.04) mg/dL Glucose 159 H (74-99) mg/dL POC Glucose (mg/dL) 142 H 146 H (75-99) mg/dL 06/19/18 06/20/18 06/20/18 Range/Units 20:46 06:06 06:12 Potassium 5.5 H (3.5-5.1) mmol/L BUN 63 H (7-17) mg/dL Creatinine 1.96 H (0.52-1.04) mg/dL Glucose 133 H (74-99) mg/dL POC Glucose (mg/dL) 210 H 155 H (75-99) mg/dL Assessment and Plan Plan: Assessment and plan #1 Acute on chronic systolic heart failure #2 Chronic kidney disease, GFR 32. Follows with Dr. John as an outpatient. #3 Hypertension #4 Dyslipidemia #5 History of coronary artery disease, stent to distal RCA 2014 #6 Diabetes mellitus # 7 Chronic right lower extremity wound #8 Morbid obesity, BMI 43.3 Plan From cardiology's perspective, patient may be able to be discharged home if cleared by primary care. We will make her a follow-up appointment to see Dr. Núñez in the office post discharge. DNP note has been reviewed, I agree with a documented findings and plan of care. Patient was seen and examined.
[2018-06-20] MEDS ORDERED: SODIUM POLYSTYRENE SULFONATE 15 GM/60 ML BOTTLE PO STA (11:29)
[2018-06-20 11:45] LABS: Glucose,Whole Blood 159 mg/dL (75-99)
[2018-06-20] MEDS ORDERED: SODIUM POLYSTYRENE SULFONATE 15 GM/60 ML BOTTLE PO ONE (15:41)
--- NOTE | 2018-06-20 15:49 | XR ---
EXAMINATION TYPE: XR chest 2V DATE OF EXAM: 06/20/2018 COMPARISON: 06/17/2018 INDICATION: Hypoxia TECHNIQUE: Frontal and lateral views of the chest are obtained. FINDINGS: The heart size is enlarged. The pulmonary vasculature is normal. The lungs are clear. IMPRESSION: 1. Cardiomegaly.
--- NOTE | 2018-06-20 16:22 | P.PN ---
Subjective Progress Note Date: 06/20/18 Progress note being dictated for Dr. Arambula Interval history:Patient's respiratory status did improve. Patient is admitted for can start failure chronic diastolic dysfunction with acute exacerbation. Her kidney function has worsened secondary to excessive diuretic therapy and IV Lasix will be switched to oral Lasix 40 twice a day patient was using torsemide and metolazone at home. Patient has elevated potassium as well lisinopril will be held unfortunately she already received lisinopril today. Recheck basic metabolic profile tomorrow Constitutional: Denied any fatigue denied any fever. Cardio vascular: denied any chest pain, palpitations Gastrointestinal denied any nausea vomiting Pulmonary: Denied any shortness of breath cough Neurologic denied any new focal deficits 06/20/2018 unable to wean off oxygen, currently O2 sat of 87-88% on room air after ambulation. Follow-up chest x-ray ordered. Potassium 5.5, Kayexalate ordered .renal function mildly worsening. Objective - Vital Signs Vital signs: Vital Signs Temp 97.6 F 06/20/18 12:00 Pulse 107 H 06/20/18 12:00 Resp 18 06/20/18 12:00 BP 129/56 06/20/18 12:00 Pulse Ox 94 L 06/20/18 12:00 Intake & Output 06/19/18 06/20/18 06/20/18 18:59 06:59 18:59 Intake Total 1080 240 240 Balance 1080 240 240 Weight 135.4 kg 134.4 kg Intake: Oral 1080 240 240 Other: Voiding Method Toilet Toilet Toilet - Exam GENERAL: The patient is alert and oriented x3, not in any acute distress. Well developed, well nourished. HEENT: Pupils are round and equally reacting to light. EOMI. No scleral icterus. No conjunctival pallor. Normocephalic, atraumatic. No pharyngeal erythema. No thyromegaly. CARDIOVASCULAR: S1 and S2 present. No murmurs, rubs, or gallops. Unable to appreciate any JVD PULMONARY: No wheezes or crackles are appreciated good air entry into bilateral lung vazquez ABDOMEN: Soft, nontender, nondistended, normoactive bowel sounds. No palpable organomegaly. MUSCULOSKELETAL: No joint swelling or deformity. EXTREMITIES: No cyanosis, clubbing, or is probably mild pitting pedal edema NEUROLOGICAL: Gross neurological examination did not reveal any focal deficits. SKIN: No rashes. - Labs CBC & Chem 7: 06/17/18 18:25 06/20/18 06:12 Labs: Abnormal Lab Results - Last 24 Hours (Table) 06/19/18 06/19/18 06/19/18 Range/Units 16:27 18:30 20:46 Potassium 6.0 H (3.5-5.1) mmol/L BUN 64 H (7-17) mg/dL Creatinine 1.88 H (0.52-1.04) mg/dL Glucose 159 H (74-99) mg/dL POC Glucose (mg/dL) 146 H 210 H (75-99) mg/dL 06/20/18 06/20/18 06/20/18 Range/Units 06:06 06:12 11:31 Potassium 5.5 H (3.5-5.1) mmol/L BUN 63 H (7-17) mg/dL Creatinine 1.96 H (0.52-1.04) mg/dL Glucose 133 H (74-99) mg/dL POC Glucose (mg/dL) 155 H 159 H (75-99) mg/dL Assessment and Plan Assessment: -Shortness of breath: Probably secondary to congestive heart failure chronic diastolic dysfunction with acute exacerbation -Acute renal failure secondary to excessive diuretic therapy which we're cutting down -Hyperkalemia secondary to lisinopril and acute renal failure. 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 Unable to wean off oxygen, follow up chest x-ray obtained reporting CHF, Lasix converted back to IV push. Nephrology consulted. Transfer to [facility] unit. Kayexalate for hyperkalemia. Close monitoring of electrolytes and renal function with repeat labs ordered for a.m. Discharge planning in progress, attempting to wean off oxygen. The impression and plan of care has been dictated as directed. : I performed a history and examination of this patient, discussed the same with the dictator. I agree with the dictator's note ,documented as a scribe. Any additional findings or plans will be noted.
[2018-06-20] MEDS: FUROSEMIDE 10 MG/ML 10 ML VIAL IV SCH (17:00)
[2018-06-20 17:04] LABS: Glucose,Whole Blood 155 mg/dL (75-99)
[2018-06-20 20:52] LABS: Glucose,Whole Blood 72 mg/dL (75-99)
[2018-06-20 21:04] LABS: Glucose,Whole Blood 81 mg/dL (75-99)
[2018-06-20] MEDS: ATORVASTATIN 80 MG TAB PO SCH (21:47)
[2018-06-21 00:25] LABS: Glucose,Whole Blood 149 mg/dL (75-99)
[2018-06-21] MEDS: INSULIN DETEMIR 100 UNIT/ML 10 ML VIAL SQ SCH ×2 (00:35→08:33)
[2018-06-21 06:49] VITALS: RESP 18
[2018-06-21 07:17] LABS: Glucose,Whole Blood 196 mg/dL (75-99)
[2018-06-21] MEDS: INSULIN ASPART 100 UNIT/ML 1 ML 10 ML VIAL SQ SCH ×4 (08:20→14:36)
[2018-06-21] MEDS: FUROSEMIDE 10 MG/ML 10 ML VIAL IV SCH (08:21)
[2018-06-21] MEDS: METOPROLOL SUCCINATE (ER) 25 MG TAB.ER.24H PO SCH (08:21)
[2018-06-21] MEDS: ASPIRIN 81 MG PO SCH (08:22)
[2018-06-21] MEDS: amLODIPine 5 MG TAB PO SCH (08:22)
[2018-06-21] MEDS: ISOSORBIDE MONONITRATE ER 30 MG TAB.ER.24H PO SCH (08:22)
[2018-06-21] MEDS: hydrALAZINE HCL 50 MG TAB PO SCH ×2 (08:22→15:28)
[2018-06-21] MEDS: LORATADINE 10 MG TAB PO SCH (08:22)
[2018-06-21] MEDS: FAMOTIDINE 20 MG TAB PO SCH (08:22)
[2018-06-21] MEDS: FERROUS SULFATE 325 MG TAB PO SCH (08:22)
[2018-06-21] MEDS: TRIAMCINOLONE ACET 0.5% CREAM 15 GM TUBE TOPICAL SCH ×2 (08:23→15:29)
--- NOTE | 2018-06-21 09:00 | P.PN ---
Subjective Mrs. Beach is seen and examined sitting up in bed in no acute distress. Past medical history significant for chronic diastolic heart failure, hypertension, dyslipidemia, diabetes mellitus, chronic kidney disease, coronary artery disease s/p angioplasty distal RCA 2014 and morbid obesity. She follows with Dr. Núñez in the office. She has been admitted with acute systolic heart failure. She was transitioned to PO diuretics yesterday but was apparently changed back per primary secondary to increased dyspnea on exertion with drop in her pulse ox level while ambulating with the nurse. Chest xray obtained yesterday afternoon reveals improved venous congestion with no further overload noted. Labs pending currently. No output documented. She states she feels better and denies shortness of breath at rest, no chest pain, no dizziness and no palpitations. Objective - Vital Signs Vital signs: Vital Signs Temp 97.2 F L 06/21/18 06:48 Pulse 75 06/21/18 06:48 Resp 18 06/21/18 06:48 BP 176/72 06/21/18 06:48 Pulse Ox 92 L 06/21/18 06:48 Intake & Output 06/20/18 06/21/18 06/21/18 18:59 06:59 18:59 Intake Total 240 640 Balance 240 640 Weight 134.399 kg Intake: Oral 240 640 Other: Voiding Method Toilet # Voids 2 - Exam GENERAL: Well-appearing, well-nourished and in no acute distress. Obese. NECK: Supple without JVD or thyromegaly. LUNGS: Breath sounds clear to auscultation bilaterally. Respiration equal and unlabored. No wheezes, rales or rhonchi. Diminished bilaterally. HEART: Regular rate and rhythm with systolic ejection murmur at the base, no rubs or gallops. S1 and S2 heard. EXTREMITIES: Normal range of motion, trace lower extremity edema. No clubbing or cyanosis. Peripheral pulses intact. - Labs CBC & Chem 7: 06/17/18 18:25 06/20/18 06:12 Labs: Abnormal Lab Results - Last 24 Hours (Table) 06/20/18 06/20/18 06/20/18 Range/Units 11:31 16:45 20:51 POC Glucose (mg/dL) 159 H 155 H 72 L (75-99) mg/dL 06/21/18 06/21/18 Range/Units 00:23 07:14 POC Glucose (mg/dL) 149 H 196 H (75-99) mg/dL Assessment and Plan Assessment: ASSESSMENT Acute on chronic systolic heart failure, EF 55-60% 09/2017 Chronic kidney disease, GFR 32. Follows with Dr. John as an outpatient. Hypertension Dyslipidemia History of coronary artery disease, stent to distal RCA 2014 Diabetes mellitus Chronic right lower extremity wound Morbid obesity, BMI 43.3 PLAN She may be transitioned to oral diuretics. Increase activity. Low salt diet discussed. Follow up with Dr. Núñez upon discharge, appointment has been made. Nurse Practitioner note has been reviewed, I agree with a documented findings and plan of care. Patient was seen and examined.
[2018-06-21 09:50] LABS: Basophils % (A) 1 %; Eosinophils # (A) 0.4 k/uL (0-0.7); Eosinophils % (A) 5 %; HCT 25.3 % (34.0-46.0); HGB 8.1 gm/dL (11.4-16.0); Lymphocytes # (A) 0.9 k/uL (1.0-4.8); Lymphocytes % (A) 12 %; MCH 28.5 pg (25.0-35.0); MCHC 31.9 g/dL (31.0-37.0); MCV 89.4 fL (80.0-100.0); Mean Platelet Volume 7.2; Monocytes # (A) 0.3 k/uL (0-1.0); Monocytes % (A) 4 %; Neutrophils # (A) 5.7 k/uL (1.3-7.7); Neutrophils % (A) 77 %; Platelet Count 267 k/uL (150-450); RBC 2.83 m/uL (3.80-5.40); RDW 14.1 % (11.5-15.5); WBC 7.4 k/uL (3.8-10.6)
[2018-06-21 10:32] LABS: Calcium 8.7 mg/dL (8.4-10.2); Potassium 5.7 mmol/L (3.5-5.1)
[2018-06-21 14:13] LABS: Glucose,Whole Blood 227 mg/dL (75-99)
[2018-06-21] MEDS ORDERED: SODIUM POLYSTYRENE SULFONATE 15 GM/60 ML BOTTLE PO STA (15:06)
[2018-06-21 15:21] VITALS: BP 182/73; PULSE 73; TEMP 98.6
[2018-06-21] MEDS ORDERED: TORSEMIDE 20 MG TAB PO SCH (16:00)
--- NOTE | 2018-06-21 17:11 | CONS ---
CONSULTATION REASON FOR CONSULT: Renal failure. HISTORY OF PRESENT ILLNESS: Patient is a 63-year-old female who was admitted to the hospital on 06/17/2018 with complaints of shortness of breath, increased lower extremity edema. She has been diuresed. Her serum creatinine on this admission was 1.69. It did go up to 1.9 and today it is at 2.1 mg/dL. The patient does have CKD with previous creatinine at about 1.0 in October of 2016; however, for most of 2017 patient's creatinine has been about 1.4 to 1.3 mg/dL at lowest. The etiology of CKD is nephrosclerosis. This morning patient states that she wants to go home. She states her leg swelling has improved significantly. She denied any chest pains or shortness of breath. Serum potassium has been elevated at 5.5 to 6 mEq/L. Blood sugars have been slightly on the higher side at 227 and 196 mg/dL. Patient is not on KEN inhibitor or angiotensin-receptor blockers. PAST MEDICAL HISTORY: 1. CKD, stage III. Baseline creatinine about 1.3 to 1.4 mg/dL. 2. Hypertension. 3. Severe concentric LVH and cardiomyopathy with diastolic dysfunction. 4. Obesity. 5. Type 2 diabetes. 6. Hyperlipidemia. 7. History of VT. PAST SURGICAL HISTORY: 1. Cardiac catheterization. 2. Eye surgery for cauterization. 3. Carpal tunnel release. 4. Coronary stent placement in 2014 to RCA. SOCIAL HISTORY: Negative for smoking, drug abuse or alcohol abuse. MEDICATIONS AT HOME PRIOR TO ADMISSION: 1. Claritin. 2. Aspirin. 3. Lipitor. 4. Insulin. 5. Norvasc. 6. Hydralazine. 7. Ranitidine. 8. Imdur. 9. Zaroxolyn. 10.Zestril. 11.Toprol. 12.Demadex. 13.Procrit. ALLERGIES: MULTIPLE, include: 1. CIPRO. 2. KEFLEX. 3. LATEX. 4. BACTRIM. 5. ADHESIVE TAPE. REVIEW OF SYSTEMS: As per HPI. Other systems negative. PHYSICAL EXAMINATION: Patient is comfortable, awake, alert, oriented x3. She is not in any acute distress. Blood pressure is 182/73, heart rate 73 per minute. She is afebrile. EXAMINATION OF THE HEART: S1, S2. EXAMINATION OF LUNGS: Bilateral breath sounds are heard. ABDOMEN: Soft, obese. Examination of lower extremities shows edema 1+ bilaterally with chronic skin changes. Some erythema is noted in the lower extremities. INSURANCE BILLER exam is grossly intact. LABS: Sodium 140, potassium 5.7, chloride 105, BUN 67, serum creatinine 2.17, hemoglobin 8.1 g/dL. ASSESSMENT: 1. Acute kidney injury, mainly cardiorenal, associated with diastolic dysfunction. Currently maintained on diuretics. Patient can resume her home dose of torsemide and Zaroxolyn. She can be discharged. 2. Hyperkalemia associated with chronic kidney disease. The elevated blood sugars have also contributed to the hyperkalemia. Patient is not on any NSAIDs or KEN inhibitors or angiotensin-receptor blockers. She should follow a low-potassium diet and we will recheck labs in about 3 to 4 days' time post discharge. She should follow up in the office in about one week's time. 3. Anemia of chronic disease. Hemoglobin has decreased from 9 to 8.1 g/dL. No active bleeding noted. Will continue to maintain patient on TORRES. She was on Procrit. We can give her a dose of Aranesp before she is discharged. 4. Fluid overload, currently improved. 5. Hypertension, partly volume-sensitive. Continue current antihypertensive medications, including amlodipine, hydralazine. Patient is on Lopressor and Imdur. We can increase the hydralazine if blood pressure remains uncontrolled. PLAN: Okay to discharge the patient. Repeat labs in 3 to 4 days post discharge and follow up in the office in about one week's time. Thank you for this consultation. MMODL / IJN: [id number] /
--- NOTE | 2018-06-22 07:48 | DS ---
DISCHARGE SUMMARY FINAL DIAGNOSES: 1. Shortness of breath possible congestive heart failure acute exacerbation with acute on chronic diastolic dysfunction. 2. Acute renal failure secondary to excessive diuretic therapy. 3. Hyperkalemia. 4. Coronary artery disease. 5. Diabetes type 2. 6. Hyperlipidemia. 7. Hypertension. 8. Chronic kidney disease secondary to diabetic nephropathy, stage III. DISCHARGE DISPOSITION: Patient being discharged in stable with guarded prognosis. Total time taken 35 minutes. HISTORY OF PRESENT ILLNESS: This 63-year-old woman with a past medical history of multiple medical problems admitted with CHF exacerbation. Patient also had multiple other medical issues include renal failure, hyperkalemia, other medical issues. Patient treated symptomatically. Patient improved significantly. Nephrology saw the patient. Medications adjusted. Cardiology saw the patient. Cleared for discharge. much improved. On exam, vital signs stable. Cardiovascular S1, S2. Abdomen soft. Nervous system: No focal deficits. DISCHARGE ADVICE AND MEDICATIONS: 1. Discharge diet is cardiac diet. 2. Activity limited until followup. 3. Follow up with Dr. Gale Amin in 2-3 days. 4. Follow up with Cardiology and nephrology as recommended. MEDICATIONS ARE FOLLOWS:: 1. Norvasc 5 mg p.o. b.i.d. 2. Aspirin 81 mg. 3. Lipitor 80 mg q.h.s. 4. Procrit 20,000 as before. 5. Iron sulfate 320 mg p.o. daily. 6. Apresoline 50 mg t.i.d. 7. Lantus 40 units subcu b.i.d. 8. Apidra 24 units subcu t.i.d. 9. Apidra scale. 10.Claritin 10 mg p.o. daily. 11.Zaroxolyn 2.5 Sunday, Sunday, Sunday. 12.Toprol-XL 75 mg p.o. b.i.d. 13.Ranitidine 150 mg b.i.d. 14.Imdur ER 30 mg p.o. daily. 15.Demadex 40 mg p.o. b.i.d. 16.Hold lisinopril. CBC, BMP, primary physician and Nephrology. Once again the patient is being discharged in stable condition with guarded prognosis. MMODL / IJN: [id number] / [facility]
== END 2018-06-21 16:18 | disposition home or self-care (01) | DRG 291 ==
LOC: EC 17:59 → 3OBS 22:04 → OBSVTOIN 06-19 13:57 → 6SEL 06-19 15:43 → 4MS4W 06-20 17:59
PROVIDERS: ADMIT Hospitalist; ATTEND Hospitalist
DX: I13.0 Hypertensive heart and chronic kidney disease with heart failure and stage 1 through stage 4 chronic kidney disease, or unspecified chronic kidney disease (principal); I50.33 Acute on chronic diastolic (congestive) heart failure; N17.9 Acute kidney failure, unspecified; L97.919 Non-pressure chronic ulcer of unspecified part of right lower leg with unspecified severity; Z68.41 Body mass index [BMI] 40.0-44.9, adult; I27.20 Pulmonary hypertension, unspecified; E11.622 Type 2 diabetes mellitus with other skin ulcer; E11.40 Type 2 diabetes mellitus with diabetic neuropathy, unspecified; I08.3 Combined rheumatic disorders of mitral, aortic and tricuspid valves; E11.22 Type 2 diabetes mellitus with diabetic chronic kidney disease; E11.65 Type 2 diabetes mellitus with hyperglycemia; E66.01 Morbid (severe) obesity due to excess calories; E78.5 Hyperlipidemia, unspecified; E87.5 Hyperkalemia; F41.9 Anxiety disorder, unspecified; D63.8 Anemia in other chronic diseases classified elsewhere; G47.30 Sleep apnea, unspecified; I25.10 Atherosclerotic heart disease of native coronary artery without angina pectoris; I25.2 Old myocardial infarction; I42.9 Cardiomyopathy, unspecified; N18.3 Chronic kidney disease, stage 3 (moderate); J30.2 Other seasonal allergic rhinitis; T50.2X5A Adverse effect of carbonic-anhydrase inhibitors, benzothiadiazides and other diuretics, initial encounter; T46.4X5A Adverse effect of angiotensin-converting-enzyme inhibitors, initial encounter; Y92.9 Unspecified place or not applicable; Z95.5 Presence of coronary angioplasty implant and graft; Z91.19 Patient's noncompliance with other medical treatment and regimen; Z79.4 Long term (current) use of insulin; Z79.82 Long term (current) use of aspirin; Z79.899 Other long term (current) drug therapy; Z88.1 Allergy status to other antibiotic agents; Z91.040 Latex allergy status; Z88.5 Allergy status to narcotic agent; Z88.2 Allergy status to sulfonamides; Z91.048 Other nonmedicinal substance allergy status; Z82.49 Family history of ischemic heart disease and other diseases of the circulatory system; Z83.3 Family history of diabetes mellitus; Z82.0 Family history of epilepsy and other diseases of the nervous system
CPT/HCPCS: 36415; 71046; 80048; 80053; 82550; 82553; 83036; 83735; 83880; 84484; 85025; 85610; 85730; 86850; 86900; 86901; 93005; 93306; 96361; 96374; 96375; 99285

== ENCOUNTER 2018-11-28 20:03 | Emergency (ER) | payer OTHER ==
[2018-11-28 20:10] VITALS: RESP 18; TEMP 98.4
--- NOTE | 2018-11-28 21:09 | ED ---
General Adult HPI - General Chief complaint: Recheck/Abnormal Lab/Rx Stated complaint: Nose Bleed Time Seen by Provider: 11/28/18 20:09 Source: patient, EMS Mode of arrival: EMS Limitations: no limitations - History of Present Illness Initial comments: Dictation was produced using [employer] dictation software. please excuse any grammatical, word or spelling errors. Chief Complaint: 63-year-old female past medical history of coronary artery disease, dyslipidemia, heart rate, diabetes presents with nausea, nosebleeds and feeling unwell. History of Present Illness: she has multiple comorbidities patient called EMS today for multiple complaints. Her main complaint she reports is nausea anytime she eats. Patient has any abdominal pain or chest pain at this time. She otherwise feels unwell. Patient states her symptoms have been ongoing for several weeks now. She states she was sick with a viral illness recently ho wever her symptoms are improving. Denies any diarrhea. Patient states that her nose bleeding is intermittent. She hasn't had an episode since 2 days ago. No nose bleeding since. The ROS documented in this emergency department record has been reviewed and confirmed by me. Those systems with pertinent positive or negative responses have been documented in the HPI. All other systems are other negative and/or noncontributory. PHYSICAL EXAM: General Impression: Alert and oriented x3, not in acute distress HEENT: Normocephalic atraumatic, extra-ocular movements intact, pupils equal and reactive to light bilaterally, mucous membranes moist. Cardiovascular: Heart regular rate and rhythm, S1&S2 audible, no murmurs, rubs or gallops Chest: Lungs clear to auscultation bilaterally, no rhonchi, no wheeze, no rales Abdomen: Bowel sounds present, abdomen soft, non-tender, non-distended, no org anomegaly Musculoskeletal: Pulses present and equal in all extremities, no peripheral edema Motor: no focal deficits noted Neurological: CN II-XII grossly intact, no focal motor or sensory deficits noted Skin: Intact with no visualized rashes Psych: Normal affect and mood ED course: 63-year-old female with multiple comorbidities presents with nausea, nosebleeds and generalized weakness. His upon arrival are within acceptable limits. Patient has no pain complex at this time. No active nose bleeding currently. Laboratory evaluation obtained. Mild leukocytosis of 11.6 and secondary to stress. Coag panel unremarkable. Metabolic panel shows mild alkalosis. Patient is slight BUN to creatinine ratio indicating mild dehydration. Rest of metabolic panel is unremarkable. Troponins test negative. Chest x-ray and abdominal x-ray are unremarkable. Patient given Zofran. Patient time. Be dside. She is counseled on the importance of proper hydration. Patient given [place] nasal spray for nasal bleeds patient told to stay away from Fan and furnaces. She is given nasal jelly to apply prior to application of 2 positive airway pressure for her sleep apnea. Patient also given prescription for Zofran when necessary nausea. Patient discharged advised to follow up with PCP upon discharge. EKG interpretation: Ventricular rate 84, normal sinus rhythm, HI interval 190, QRS 86, QTC 458. No HI prolongation, no QTC prolongation. EKG compared to 06/19/2018. Nonspecific T-wave changes seen in the high lateral leads. These appear to be stable since most recent available EKG to our EMR. - Related Data Home Medications Medication Instructions Recorded Confirmed Loratadine [Claritin] 10 mg PO DAILY 01/05/15 11/28/18 Aspirin 81 mg PO DAILY 04/16/15 11/28/18 Atorvastatin [Lipitor] 80 mg PO HS 10/14/15 11/28/18 Insulin Glargine [Lantus] 45 unit SQ BID 01/22/17 11/28/18 amLODIPine [Norvasc] 5 mg PO BID 08/15/17 11/28/18 hydrALAZINE HCL [Apresoline] 50 mg PO TID-W/MEALS 08/15/17 11/28/18 Ranitidine HCl 150 mg PO BID 09/20/17 11/28/18 Ferrous Sulfate [Iron (65 MG 325 mg PO DAILY 04/15/18 11/28/18 Elemental)] Metolazone [Zaroxolyn] 2.5 mg PO TUFR 04/15/18 11/28/18 Metoprolol Succinate [Toprol XL] 75 mg PO BID 06/17/18 11/28/18 Insulin Lispro [Admelog] 15 units SQ TID 10/18/18 11/28/18 Liraglutide [Victoza 3-Miles] 0.6 mg SQ DAILY 10/18/18 11/28/18 Ergocalciferol [Vitamin D2] 50,000 unit PO FR 11/28/18 11/28/18 Insulin Lispro [Admelog] See Protocol SQ TID 11/28/18 11/28/18 Torsemide [Demadex] 20 mg PO BID 11/28/18 11/28/18 Previous Rx's Medication Instructions Recorded Isosorbide Mononitrate ER [Imdur] 30 mg PO DAILY tab.er.24h 10/06/17 Allergies Allergy/AdvReac Type Severity Reaction Status Date / Time cephalexin monohydrate Allergy Rash/Hives Verified 11/28/18 21:11 [From Keflex] ciprofloxacin [From Cipro] Allergy Swelling Verified 11/28/18 21:11 ciprofloxacin HCl Allergy Swelling Verified 11/28/18 21:11 [From Cipro] codeine Allergy Unknown Verified 11/28/18 21:11 latex Allergy Itching Verified 11/28/18 21:11 sulfamethoxazole Allergy Itching Verified 11/28/18 21:11 [From Bactrim] trimethoprim [From Bactrim] Allergy Itching Verified 11/28/18 21:11 adhesive tape AdvReac Itching Verified 11/28/18 21:11 Review of Systems ROS Statement: Those systems with pertinent positive or pertinent negative responses have been documented in the HPI. ROS Other: All systems not noted in ROS Statement are negative. Past Medical History Past Medical History: Blood Disorder, Coronary Artery Disease (CAD), Heart Failure, Diabetes Mellitus, Hyperlipidemia, Hypertension, Myocardial Infarction (NE) Additional Past Medical History / Comment(s): edema, seasonal allergies, Diabetic ulcer-SEES DR ZELAYA FOR WOUND CARE, anemia, neuropathy, CKD Last Myocardial Infarction Date:: 01/10/15 History of Any Multi-Drug Resistant Organisms: None Reported Past Surgical History: Heart Catheterization With Stent Additional Past Surgical History / Comment(s): PT HAD STENT TO DISTAL RCA IN DECEMBER 2014, carpal tunnel bilateral hands, Eye surgery to cauterize bleeding November, Past Anesthesia/Blood Transfusion Reactions: Family History of Problems w/ Anesthesia, Motion Sickness Additional Past Anesthesia/Blood Transfusion Reaction / Comment(s): states mother had difficulty coming out of anesthesia Date of Last Stent Placement:: 12/30 Past Psychological History: Anxiety Smoking Status: Never smoker Past Alcohol Use History: None Reported Past Drug Use History: None Reported - Past Family History Brother(s) Family Medical History: Cancer Sister(s) Family Medical History: Diabetes Mellitus, Hypertension, Myocardial Infarction (NE), Vascular Disorder Additional Family Medical History / Comment(s): post procedure of five stents Mother Family Medical History: CVA/TIA, Diabetes Mellitus, Myocardial Infarction (NE) Additional Family Medical History / Comment(s): TIA's, PVD. Mother at age 65yrs. Father Family Medical History: Dementia, Diabetes Mellitus, Hypertension Additional Family Medical History / Comment(s): Father at age 72 yrs. General Exam Limitations: no limitations Course Vital Signs 11/28/18 11/28/18 20:06 21:57 Temperature 98.4 F Pulse Rate 86 78 Respiratory 18 18 Rate Blood Pressure 167/74 151/72 O2 Sat by Pulse 96 Oximetry Medical Decision Making - Lab Data Result diagrams: 11/28/18 21:44 11/28/18 21:44 Lab Results 11/28/18 11/28/18 11/28/18 Range/Units 21:15 21:44 21:44 WBC 11.6 H (3.8-10.6) k/uL RBC 3.26 L (3.80-5.40) m/uL Hgb 10.5 L (11.4-16.0) gm/dL Hct 28.8 L (34.0-46.0) % MCV 88.4 (80.0-100.0) fL MCH 32.1 (25.0-35.0) pg MCHC 36.3 (31.0-37.0) g/dL RDW 16.4 H (11.5-15.5) % Plt Count 326 (150-450) k/uL Neutrophils % 82 % Lymphocytes % 10 % Monocytes % 4 % Eosinophils % 3 % Basophils % 0 % Neutrophils # 9.6 H (1.3-7.7) k/uL Lymphocytes # 1.1 (1.0-4.8) k/uL Monocytes # 0.4 (0-1.0) k/uL Eosinophils # 0.4 (0-0.7) k/uL Basophils # 0.0 (0-0.2) k/uL Poikilocytosis Slight Anisocytosis Slight PT (9.0-12.0) sec INR (<1.2) Sodium 142 (137-145) mmol/L Potassium 3.9 (3.5-5.1) mmol/L Chloride 100 (98-107) mmol/L Carbon Dioxide 32 H (22-30) mmol/L Anion Gap 10 mmol/L BUN 50 H (7-17) mg/dL Creatinine 1.97 H (0.52-1.04) mg/dL Est GFR (CKD-EPI)AfAm 31 (>60 ml/min/1.73 sqM) Est GFR (CKD-EPI)NonAf 27 (>60 ml/min/1.73 sqM) Glucose 133 H (74-99) mg/dL Calcium 9.7 (8.4-10.2) mg/dL Magnesium 1.9 (1.6-2.3) mg/dL Total Bilirubin 0.5 (0.2-1.3) mg/dL AST 22 (14-36) U/L ALT 34 (9-52) U/L Alkaline Phosphatase 124 (38-126) U/L Total Protein 7.3 (6.3-8.2) g/dL Albumin 3.9 (3.5-5.0) g/dL Influenza Type A RNA Not Detected (Not Detectd) Influenza Type B (PCR) Not Detected (Not Detectd) 11/28/18 Range/Units 21:44 WBC (3.8-10.6) k/uL RBC (3.80-5.40) m/uL Hgb (11.4-16.0) gm/dL Hct (34.0-46.0) % MCV (80.0-100.0) fL MCH (25.0-35.0) pg MCHC (31.0-37.0) g/dL RDW (11.5-15.5) % Plt Count (150-450) k/uL Neutrophils % % Lymphocytes % % Monocytes % % Eosinophils % % Basophils % % Neutrophils # (1.3-7.7) k/uL Lymphocytes # (1.0-4.8) k/uL Monocytes # (0-1.0) k/uL Eosinophils # (0-0.7) k/uL Basophils # (0-0.2) k/uL Poikilocytosis Anisocytosis PT 10.2 (9.0-12.0) sec INR 0.9 (<1.2) Sodium (137-145) mmol/L Potassium (3.5-5.1) mmol/L Chloride (98-107) mmol/L Carbon Dioxide (22-30) mmol/L Anion Gap mmol/L BUN (7-17) mg/dL Creatinine (0.52-1.04) mg/dL Est GFR (CKD-EPI)AfAm (>60 ml/min/1.73 sqM) Est GFR (CKD-EPI)NonAf (>60 ml/min/1.73 sqM) Glucose (74-99) mg/dL Calcium (8.4-10.2) mg/dL Magnesium (1.6-2.3) mg/dL Total Bilirubin (0.2-1.3) mg/dL AST (14-36) U/L ALT (9-52) U/L Alkaline Phosphatase (38-126) U/L Total Protein (6.3-8.2) g/dL Albumin (3.5-5.0) g/dL Influenza Type A RNA (Not Detectd) Influenza Type B (PCR) (Not Detectd) Disposition Clinical Impression: Nausea Disposition: HOME SELF-CARE Condition: Good Instructions (If sedation given, give patient instructions): Nosebleed (ED), Acute Nausea and Vomiting (ED) Is patient prescribed a controlled substance at d/c from ED?: No Referrals: Gale Amin MD [Primary Care Provider] - 1-2 days Time of Disposition: 22:22
[2018-11-28] MEDS ORDERED: ONDANSETRON 4 MG/2 ML VIAL IVP STA (21:33)
--- NOTE | 2018-11-28 21:44 | XR ---
EXAMINATION TYPE: XR abdomen acute w cxr DATE OF EXAM: 11/28/2018 COMPARISON: 01/22/2017 HISTORY: Pain TECHNIQUE: Chest x-ray with supine and upright abdomen FINDINGS: There is no sign of intestinal obstruction or pneumoperitoneum. Fecal pattern is normal. Lungs are cl ear of consolidation. There is no heart failure. There are no pathologic calcifications over the kidn eys. Fecal pattern is normal. IMPRESSION: Nonacute abdomen. Normal chest. No active cardiopulmonary disease. No adverse change compared to old exam.
[2018-11-28 21:57] VITALS: BP 151/72; PULSE 78
[2018-11-28 22:00] LABS: Anisocytosis Slight; Basophils % (A) 0 %; Eosinophils # (A) 0.4 k/uL (0-0.7); Eosinophils % (A) 3 %; HCT 28.8 % (34.0-46.0); HGB 10.5 gm/dL (11.4-16.0); Lymphocytes # (A) 1.1 k/uL (1.0-4.8); Lymphocytes % (A) 10 %; MCH 32.1 pg (25.0-35.0); MCHC 36.3 g/dL (31.0-37.0); MCV 88.4 fL (80.0-100.0); Mean Platelet Volume 6.3; Monocytes # (A) 0.4 k/uL (0-1.0); Monocytes % (A) 4 %; Neutrophils # (A) 9.6 k/uL (1.3-7.7); Neutrophils % (A) 82 %; Platelet Count 326 k/uL (150-450); Poikilocytosis Slight; RBC 3.26 m/uL (3.80-5.40); RDW 16.4 % (11.5-15.5); WBC 11.6 k/uL (3.8-10.6)
[2018-11-28 22:10] LABS: INR 0.9 (<1.2); Prothrombin Time 10.2 sec (9.0-12.0)
[2018-11-28 22:12] LABS: Albumin 3.9 g/dL (3.5-5.0); Calcium 9.7 mg/dL (8.4-10.2); Magnesium 1.9 mg/dL (1.6-2.3); Potassium 3.9 mmol/L (3.5-5.1); Total Bilirubin 0.5 mg/dL (0.2-1.3); Total Protein 7.3 g/dL (6.3-8.2)
--- NOTE | 2018-11-28 22:24 | ED ---
Medical Decision Making - Lab Data Result diagrams: 11/28/18 21:44 11/28/18 21:44 Lab Results 11/28/18 11/28/18 11/28/18 Range/Units 21:15 21:44 21:44 WBC 11.6 H (3.8-10.6) k/uL RBC 3.26 L (3.80-5.40) m/uL Hgb 10.5 L (11.4-16.0) gm/dL Hct 28.8 L (34.0-46.0) % MCV 88.4 (80.0-100.0) fL MCH 32.1 (25.0-35.0) pg MCHC 36.3 (31.0-37.0) g/dL RDW 16.4 H (11.5-15.5) % Plt Count 326 (150-450) k/uL Neutrophils % 82 % Lymphocytes % 10 % Monocytes % 4 % Eosinophils % 3 % Basophils % 0 % Neutrophils # 9.6 H (1.3-7.7) k/uL Lymphocytes # 1.1 (1.0-4.8) k/uL Monocytes # 0.4 (0-1.0) k/uL Eosinophils # 0.4 (0-0.7) k/uL Basophils # 0.0 (0-0.2) k/uL Poikilocytosis Slight Anisocytosis Slight PT (9.0-12.0) sec INR (<1.2) Sodium 142 (137-145) mmol/L Potassium 3.9 (3.5-5.1) mmol/L Chloride 100 (98-107) mmol/L Carbon Dioxide 32 H (22-30) mmol/L Anion Gap 10 mmol/L BUN 50 H (7-17) mg/dL Creatinine 1.97 H (0.52-1.04) mg/dL Est GFR (CKD-EPI)AfAm 31 (>60 ml/min/1.73 sqM) Est GFR (CKD-EPI)NonAf 27 (>60 ml/min/1.73 sqM) Glucose 133 H (74-99) mg/dL Calcium 9.7 (8.4-10.2) mg/dL Magnesium 1.9 (1.6-2.3) mg/dL Total Bilirubin 0.5 (0.2-1.3) mg/dL AST 22 (14-36) U/L ALT 34 (9-52) U/L Alkaline Phosphatase 124 (38-126) U/L Total Protein 7.3 (6.3-8.2) g/dL Albumin 3.9 (3.5-5.0) g/dL Influenza Type A RNA Not Detected (Not Detectd) Influenza Type B (PCR) Not Detected (Not Detectd) 11/28/18 Range/Units 21:44 WBC (3.8-10.6) k/uL RBC (3.80-5.40) m/uL Hgb (11.4-16.0) gm/dL Hct (34.0-46.0) % MCV (80.0-100.0) fL MCH (25.0-35.0) pg MCHC (31.0-37.0) g/dL RDW (11.5-15.5) % Plt Count (150-450) k/uL Neutrophils % % Lymphocytes % % Monocytes % % Eosinophils % % Basophils % % Neutrophils # (1.3-7.7) k/uL Lymphocytes # (1.0-4.8) k/uL Monocytes # (0-1.0) k/uL Eosinophils # (0-0.7) k/uL Basophils # (0-0.2) k/uL Poikilocytosis Anisocytosis PT 10.2 (9.0-12.0) sec INR 0.9 (<1.2) Sodium (137-145) mmol/L Potassium (3.5-5.1) mmol/L Chloride (98-107) mmol/L Carbon Dioxide (22-30) mmol/L Anion Gap mmol/L BUN (7-17) mg/dL Creatinine (0.52-1.04) mg/dL Est GFR (CKD-EPI)AfAm (>60 ml/min/1.73 sqM) Est GFR (CKD-EPI)NonAf (>60 ml/min/1.73 sqM) Glucose (74-99) mg/dL Calcium (8.4-10.2) mg/dL Magnesium (1.6-2.3) mg/dL Total Bilirubin (0.2-1.3) mg/dL AST (14-36) U/L ALT (9-52) U/L Alkaline Phosphatase (38-126) U/L Total Protein (6.3-8.2) g/dL Albumin (3.5-5.0) g/dL Influenza Type A RNA (Not Detectd) Influenza Type B (PCR) (Not Detectd) Disposition Clinical Impression: Nausea Disposition: HOME SELF-CARE Condition: Good Instructions (If sedation given, give patient instructions): Nosebleed (ED), Acute Nausea and Vomiting (ED) Prescriptions: Sodium Chloride [Miller] 1 spray EA NOSTRIL QID #1 bottle Ondansetron Odt [Zofran Odt] 4 mg PO Q8HR PRN #12 tab PRN Reason: Nausea Is patient prescribed a controlled substance at d/c from ED?: No Referrals: Gale Amin MD [Primary Care Provider] - 1-2 days Time of Disposition: 22:24
== END 2018-11-28 22:49 | disposition home or self-care (01) ==
LOC: EC 20:03
DX: R11.0 Nausea (principal); R04.0 Epistaxis; R53.1 Weakness; D72.829 Elevated white blood cell count, unspecified; E87.3 Alkalosis; I25.10 Atherosclerotic heart disease of native coronary artery without angina pectoris; I25.2 Old myocardial infarction; E78.5 Hyperlipidemia, unspecified; E11.22 Type 2 diabetes mellitus with diabetic chronic kidney disease; I13.0 Hypertensive heart and chronic kidney disease with heart failure and stage 1 through stage 4 chronic kidney disease, or unspecified chronic kidney disease; N18.9 Chronic kidney disease, unspecified; E11.40 Type 2 diabetes mellitus with diabetic neuropathy, unspecified; D64.9 Anemia, unspecified; F41.9 Anxiety disorder, unspecified; Z79.4 Long term (current) use of insulin; Z79.82 Long term (current) use of aspirin; Z79.899 Other long term (current) drug therapy; Z88.1 Allergy status to other antibiotic agents; Z91.048 Other nonmedicinal substance allergy status; Z88.5 Allergy status to narcotic agent; Z88.2 Allergy status to sulfonamides; Z95.5 Presence of coronary angioplasty implant and graft
CPT/HCPCS: 36415; 93005; 80053; 83735; 85025; 85610; 87502; 74022; 99284; 96374; J2405

== ENCOUNTER 2018-12-09 10:22 | Inpatient (IN) | payer OTHER ==
[2018-12-09] MEDS ORDERED: PANTOPRAZOLE 40 MG/10 ML VIAL IVP STA (10:33)
[2018-12-09] MEDS ORDERED: diphenhydrAMINE 50 MG/ML 1 ML VIAL IVP STA (10:33)
[2018-12-09] MEDS ORDERED: KETOROLAC 30 MG/ML 1 ML VIAL IVP STA (10:33)
[2018-12-09] MEDS ORDERED: SODIUM CHLORIDE 0.9% 1,000 ML IV STA (10:33)
[2018-12-09] MEDS ORDERED: METOCLOPRAMIDE 5 MG/ML 2 ML VIAL IVP STA (10:33)
[2018-12-09] MEDS ORDERED: IPRATROPIUM-ALBUTEROL 3 ML NEB INHALATION STA (10:35)
--- NOTE | 2018-12-09 10:38 | ED ---
Nausea/Vomiting/Diarrhea HPI - General Source: patient, RN notes reviewed, old records reviewed Mode of arrival: EMS Limitations: no limitations <Cesia Oropeza - Last Filed: 12/09/18 14:38> <Jovi Zurita - Last Filed: 12/09/18 15:39> - General Chief complaint: Nausea/Vomiting/Diarrhea Stated complaint: Vomiting Time Seen by Provider: 12/09/18 10:23 - History of Present Illness Initial comments: Patient is a 63-year-old female who presents emergency Department today with complaints of nausea and vomiting for the past 4 days. Patient has had a burning chest pain complaining similar to acid reflux. Patient states she just doesn't feel well. She is only been able to eat Jell-O and water. She reports that she's had a difficult time keeping this down. She denies any history of sick contacts. Patient states that she is a diabetic and has history of hypertension. Patient reports that she was here on the for upper a story symptoms. (Cesia Oropeza) - Related Data Home Medications Medication Instructions Recorded Confirmed Loratadine [Claritin] 10 mg PO BID 01/05/15 12/09/18 Aspirin 81 mg PO DAILY 04/16/15 12/09/18 Atorvastatin [Lipitor] 80 mg PO HS 10/14/15 12/09/18 Insulin Glargine [Lantus] 45 unit SQ BID 01/22/17 12/09/18 amLODIPine [Norvasc] 5 mg PO BID 08/15/17 12/09/18 hydrALAZINE HCL [Apresoline] 50 mg PO TID-W/MEALS 08/15/17 12/09/18 Ranitidine HCl 150 mg PO BID 09/20/17 12/09/18 Ferrous Sulfate [Iron (65 MG 325 mg PO DAILY 04/15/18 12/09/18 Elemental)] Metolazone [Zaroxolyn] 2.5 mg PO TUFR 04/15/18 12/09/18 Metoprolol Succinate [Toprol XL] 75 mg PO BID 06/17/18 12/09/18 Insulin Lispro [Admelog] 15 units SQ TID 10/18/18 12/09/18 Liraglutide [Victoza 3-Miles] 0.6 mg SQ DAILY 10/18/18 12/09/18 Ergocalciferol [Vitamin D2] 50,000 unit PO FR 11/28/18 12/09/18 Insulin Lispro [Admelog] See Protocol SQ TID 11/28/18 12/09/18 Torsemide [Demadex] 20 mg PO BID 11/28/18 12/09/18 Isosorbide Mononitrate ER [Imdur] 60 mg PO DAILY 12/09/18 12/09/18 Allergies Allergy/AdvReac Type Severity Reaction Status Date / Time cephalexin monohydrate Allergy Rash/Hives Verified 12/09/18 10:41 [From Keflex] ciprofloxacin [From Cipro] Allergy Swelling Verified 12/09/18 10:41 ciprofloxacin HCl Allergy Swelling Verified 12/09/18 10:41 [From Cipro] codeine Allergy Unknown Verified 12/09/18 10:41 latex Allergy Itching Verified 12/09/18 10:41 sulfamethoxazole Allergy Itching Verified 12/09/18 10:41 [From Bactrim] trimethoprim [From Bactrim] Allergy Itching Verified 12/09/18 10:41 adhesive tape AdvReac Itching Verified 12/09/18 10:41 Review of Systems ROS Other: All systems not noted in ROS Statement are negative. <Cesia Oropeza - Last Filed: 12/09/18 14:38> ROS Other: All systems not noted in ROS Statement are negative. <Jovi Zurita - Last Filed: 12/09/18 15:39> ROS Statement: Those systems with pertinent positive or pertinent negative responses have been documented in the HPI. Past Medical History Past Medical History: Blood Disorder, Coronary Artery Disease (CAD), Heart Failure, Diabetes Mellitus, Hyperlipidemia, Hypertension, Myocardial Infarction (CA) Additional Past Medical History / Comment(s): edema, seasonal allergies, Diabetic ulcer-SEES DR ZELAYA FOR WOUND CARE, anemia, neuropathy, CKD Last Myocardial Infarction Date:: 01/10/15 History of Any Multi-Drug Resistant Organisms: None Reported Past Surgical History: Heart Catheterization With Stent Additional Past Surgical History / Comment(s): PT HAD STENT TO DISTAL RCA IN DECEMBER 2014, carpal tunnel bilateral hands, Eye surgery to cauterize bleeding November, Past Anesthesia/Blood Transfusion Reactions: Family History of Problems w/ Anest hesia, Motion Sickness Additional Past Anesthesia/Blood Transfusion Reaction / Comment(s): states mother had difficulty coming out of anesthesia Date of Last Stent Placement:: 12/30 Past Psychological History: Anxiety Smoking Status: Never smoker Past Alcohol Use History: None Reported Past Drug Use History: None Reported - Past Family History Brother(s) Family Medical History: Cancer Sister(s) Family Medical History: Diabetes Mellitus, Hypertension, Myocardial Infarction (CA), Vascular Disorder Additional Family Medical History / Comment(s): post procedure of five stents Mother Family Medical History: CVA/TIA, Diabetes Mellitus, Myocardial Infarction (CA) Additional Family Medical History / Comment(s): TIA's, PVD. Mother at age 65yrs. Father Family Medical History: Dementia, Diabetes Mellitus, Hypertension Additional Family Medical History / Comment(s): Father at age 72 yrs. <Cesia Oropeza - Last Filed: 12/09/18 14:38> General Exam Limitations: no limitations General appearance: alert, in no apparent distress Head exam: Present: atraumatic, normocephalic, normal inspection Eye exam: Present: normal appearance, PERRL, EOMI. Absent: scleral icterus, conjunctival injection, periorbital swelling ENT exam: Present: normal exam, mucous membranes moist Neck exam: Present: normal inspection. Absent: tenderness, meningismus, lymphadenopathy Respiratory exam: Present: decreased breath sounds. Absent: normal lung sounds bilaterally, respiratory distress, wheezes, rales, rhonchi, stridor Cardiovascular Exam: Present: regular rate, normal rhythm, normal heart sounds. Absent: systolic murmur, diastolic murmur, rubs, gallop, clicks GI/Abdominal exam: Present: soft, tenderness (Epigastric tenderness), normal bowel sounds. Absent: distended, guarding, rebound, rigid Extremities exam: Present: normal inspection, full ROM, normal capillary refill. Absent: tenderness, pedal edema, joint swelling, calf tenderness Back exam: Present: normal inspection Neurological exam: Present: alert, oriented X3, CN II-XII intact Psychiatric exam: Present: normal affect, normal mood Skin exam: Present: warm, dry, intact, normal color. Absent: rash <Cesia Oropeza - Last Filed: 12/09/18 14:38> - General Exam Comments Initial Comments: this is a 63-year-old female. Alert and oriented 3. Patient appears in no significant distress. (Cesia Oropeza) Course <Jovi Zuriat - Last Filed: 12/09/18 15:39> Vital Signs 12/09/18 12/09/18 12/09/18 10:30 11:32 11:53 Temperature 100.3 F H Pulse Rate 91 86 85 Respiratory 20 18 18 Rate Blood Pressure 146/83 159/67 O2 Sat by Pulse 86 L 93 L Oximetry 12/09/18 12/09/18 12/09/18 12:04 13:30 14:00 Temperature Pulse Rate 81 71 72 Respiratory 18 18 20 Rate Blood Pressure 119/56 129/55 O2 Sat by Pulse 94 L 94 L Oximetry 12/09/18 15:00 Temperature Pulse Rate 68 Respiratory 20 Rate Blood Pressure 113/61 O2 Sat by Pulse 93 L Oximetry - Reevaluation(s) Reevaluation #1: 12/09/18 15:39 Case discussed with practitioner Sandip. Case also discussed with practitioner Isidro, who will admit for Dr. Seymour, who admits for Dr. Lisandra Seymour. (Jovi Zurita) Medical Decision Making - Lab Data Result diagrams: 12/09/18 10:50 12/09/18 10:50 - Radiology Data Radiology results: report reviewed <Cesia Oropeza - Last Filed: 12/09/18 14:38> - Lab Data Result diagrams: 12/09/18 10:50 12/09/18 10:50 <Jovi Zurita - Last Filed: 12/09/18 15:39> - Medical Decision Making Patient 7-year-old female complains of nausea and vomiting for the past 4 days, substernal chest pain related to GERD area did Patient is given IV fluids labwork was obtained. Patient's chest x-ray shows evidence of pulmonary congestion concern for CHF. Her troponin is mildly elevated at 0.04. She was given IV fluids and Protonix. She is reevaluated and resting comfortably in bed. She does have elevation of BUN/creatinine. BUN of 60 any 2.42. Patient BNP is 2880. KUB shows normal gas pattern. I believe patient's nausea vomiting is likely related to gastritis. Patient will be admitted this time for elevated troponin substernal chest pain and CHF exacerbation. (Cesia Oropeza) - Lab Data Lab Results 12/09/18 12/09/18 12/09/18 Range/Units 10:50 10:50 10:50 WBC 16.2 H (3.8-10.6) k/uL RBC 3.05 L (3.80-5.40) m/uL Hgb 9.3 L (11.4-16.0) gm/dL Hct 27.7 L (34.0-46.0) % MCV 90.9 (80.0-100.0) fL MCH 30.5 (25.0-35.0) pg MCHC 33.6 (31.0-37.0) g/dL RDW 16.1 H (11.5-15.5) % Plt Count 250 (150-450) k/uL Neutrophils % 91 % Lymphocytes % 3 % Monocytes % 4 % Eosinophils % 0 % Basophils % 0 % Neutrophils # 14.9 H (1.3-7.7) k/uL Lymphocytes # 0.5 L (1.0-4.8) k/uL Monocytes # 0.6 (0-1.0) k/uL Eosinophils # 0.1 (0-0.7) k/uL Basophils # 0.0 (0-0.2) k/uL Poikilocytosis Slight Anisocytosis Slight PT 10.7 (9.0-12.0) sec INR 1.0 (<1.2) APTT 25.2 (22.0-30.0) sec Sodium 136 L (137-145) mmol/L Potassium 3.8 (3.5-5.1) mmol/L Chloride 100 (98-107) mmol/L Carbon Dioxide 26 (22-30) mmol/L Anion Gap 10 mmol/L BUN 66 H (7-17) mg/dL Creatinine 2.49 H (0.52-1.04) mg/dL Est GFR (CKD-EPI)AfAm 23 (>60 ml/min/1.73 sqM) Est GFR (CKD-EPI)NonAf 20 (>60 ml/min/1.73 sqM) Glucose 243 H (74-99) mg/dL Plasma Lactic Acid Sushant (0.7-2.0) mmol/L Calcium 8.4 (8.4-10.2) mg/dL Total Bilirubin 0.5 (0.2-1.3) mg/dL AST 20 (14-36) U/L ALT 26 (9-52) U/L Alkaline Phosphatase 93 (38-126) U/L Troponin I (0.000-0.034) ng/mL NT-Pro-B Natriuret Pep pg/mL Total Protein 6.2 L (6.3-8.2) g/dL Albumin 3.4 L (3.5-5.0) g/dL Amylase <30 L (30-110) U/L Lipase 115 (23-300) U/L Influenza Type A RNA (Not Detectd) Influenza Type B (PCR) (Not Detectd) 12/09/18 12/09/18 12/09/18 Range/Units 10:50 10:53 11:30 WBC (3.8-10.6) k/uL RBC (3.80-5.40) m/uL Hgb (11.4-16.0) gm/dL Hct (34.0-46.0) % MCV (80.0-100.0) fL MCH (25.0-35.0) pg MCHC (31.0-37.0) g/dL RDW (11.5-15.5) % Plt Count (150-450) k/uL Neutrophils % % Lymphocytes % % Monocytes % % Eosinophils % % Basophils % % Neutrophils # (1.3-7.7) k/uL Lymphocytes # (1.0-4.8) k/uL Monocytes # (0-1.0) k/uL Eosinophils # (0-0.7) k/uL Basophils # (0-0.2) k/uL Poikilocytosis Anisocytosis PT (9.0-12.0) sec INR (<1.2) APTT (22.0-30.0) sec Sodium (137-145) mmol/L Potassium (3.5-5.1) mmol/L Chloride (98-107) mmol/L Carbon Dioxide (22-30) mmol/L Anion Gap mmol/L BUN (7-17) mg/dL Creatinine (0.52-1.04) mg/dL Est GFR (CKD-EPI)AfAm (>60 ml/min/1.73 sqM) Est GFR (CKD-EPI)NonAf (>60 ml/min/1.73 sqM) Glucose (74-99) mg/dL Plasma Lactic Acid Sushant 1.2 (0.7-2.0) mmol/L Calcium (8.4-10.2) mg/dL Total Bilirubin (0.2-1.3) mg/dL AST (14-36) U/L ALT (9-52) U/L Alkaline Phosphatase (38-126) U/L Troponin I 0.049 H* (0.000-0.034) ng/mL NT-Pro-B Natriuret Pep pg/mL Total Protein (6.3-8.2) g/dL Albumin (3.5-5.0) g/dL Amylase (30-110) U/L Lipase (23-300) U/L Influenza Type A RNA Not Detected (Not Detectd) Influenza Type B (PCR) Not Detected (Not Detectd) 12/09/18 Range/Units 13:00 WBC (3.8-10.6) k/uL RBC (3.80-5.40) m/uL Hgb (11.4-16.0) gm/dL Hct (34.0-46.0) % MCV (80.0-100.0) fL MCH (25.0-35.0) pg MCHC (31.0-37.0) g/dL RDW (11.5-15.5) % Plt Count (150-450) k/uL Neutrophils % % Lymphocytes % % Monocytes % % Eosinophils % % Basophils % % Neutrophils # (1.3-7.7) k/uL Lymphocytes # (1.0-4.8) k/uL Monocytes # (0-1.0) k/uL Eosinophils # (0-0.7) k/uL Basophils # (0-0.2) k/uL Poikilocytosis Anisocytosis PT (9.0-12.0) sec INR (<1.2) APTT (22.0-30.0) sec Sodium (137-145) mmol/L Potassium (3.5-5.1) mmol/L Chloride (98-107) mmol/L Carbon Dioxide (22-30) mmol/L Anion Gap mmol/L BUN (7-17) mg/dL Creatinine (0.52-1.04) mg/dL Est GFR (CKD-EPI)AfAm (>60 ml/min/1.73 sqM) Est GFR (CKD-EPI)NonAf (>60 ml/min/1.73 sqM) Glucose (74-99) mg/dL Plasma Lactic Acid Sushant (0.7-2.0) mmol/L Calcium (8.4-10.2) mg/dL Total Bilirubin (0.2-1.3) mg/dL AST (14-36) U/L ALT (9-52) U/L Alkaline Phosphatase (38-126) U/L Troponin I (0.000-0.034) ng/mL NT-Pro-B Natriuret Pep 2370 pg/mL Total Protein (6.3-8.2) g/dL Albumin (3.5-5.0) g/dL Amylase (30-110) U/L Lipase (23-300) U/L Influenza Type A RNA (Not Detectd) Influenza Type B (PCR) (Not Detectd) 12/09/18 13:07 EKG shows sinus rhythm cannot really anterior infarct age indeterminate. Normal EKG. Ventricular rate of 85 beats minute. Verbal 186 no seconds. Trace ration 92 ms. QT QTC 372/442 ms. (Cesia Oropeza) - Radiology Data Chest x-ray shows moderate pulmonary vascular congestion and interstitial edema cream and this is just a constant CHF findings with exacerbated by low lung volumes. Noninjected bowel gas pattern. (Cesia Oropeza) Disposition Is patient prescribed a controlled substance at d/c from ED?: No Time of Disposition: 14:40 <Cesia Oropeza - Last Filed: 12/09/18 14:38> <Jovi Zurita - Last Filed: 12/09/18 15:39> Clinical Impression: CHF exacerbation, NSTEMI (non-ST elevated myocardial infarction), Chronic kidn ey disease, Gastritis Disposition: ADMITTED IP TO THIS HOSP Condition: Stable Referrals: Gale Amin MD [Primary Care Provider] - 1-2 days
[2018-12-09 11:12] LABS: Anisocytosis Slight; Basophils % (A) 0 %; Eosinophils # (A) 0.1 k/uL (0-0.7); Eosinophils % (A) 0 %; HCT 27.7 % (34.0-46.0); HGB 9.3 gm/dL (11.4-16.0); Lymphocytes # (A) 0.5 k/uL (1.0-4.8); Lymphocytes % (A) 3 %; MCH 30.5 pg (25.0-35.0); MCHC 33.6 g/dL (31.0-37.0); MCV 90.9 fL (80.0-100.0); Mean Platelet Volume 7.5; Monocytes # (A) 0.6 k/uL (0-1.0); Monocytes % (A) 4 %; Neutrophils # (A) 14.9 k/uL (1.3-7.7); Neutrophils % (A) 91 %; Platelet Count 250 k/uL (150-450); Poikilocytosis Slight; RBC 3.05 m/uL (3.80-5.40); RDW 16.1 % (11.5-15.5); WBC 16.2 k/uL (3.8-10.6)
[2018-12-09 11:26] LABS: ALT 26 U/L (9-52); AST 20 U/L (14-36); Albumin 3.4 g/dL (3.5-5.0); Alkaline Phosphatase 93 U/L (38-126); Amylase <30 U/L (30-110); Anion Gap 10 mmol/L; Blood Urea Nitrogen 66 mg/dL (7-17); Calcium 8.4 mg/dL (8.4-10.2); Carbon Dioxide 26 mmol/L (22-30); Chloride 100 mmol/L (98-107); Glucose 243 mg/dL (74-99); Lipase 115 U/L (23-300); Potassium 3.8 mmol/L (3.5-5.1); Sodium 136 mmol/L (137-145); Total Bilirubin 0.5 mg/dL (0.2-1.3); Total Protein 6.2 g/dL (6.3-8.2)
[2018-12-09 11:51] LABS: Partial Thromboplastin Time 25.2 sec (22.0-30.0); Prothrombin Time 10.7 sec (9.0-12.0)
--- NOTE | 2018-12-09 12:19 | XR ---
EXAMINATION TYPE: XR chest 2V DATE OF EXAM: 12/09/2018 COMPARISON: 06/20/2018 HISTORY: Nausea and vomiting since Sunday TECHNIQUE: Frontal and lateral views of the chest are obtained. FINDINGS: There is moderate pulmonary vascular congestion and minimal interstitial edema. Cardia med iastinal silhouette is enlarged. Patient's chin obscures the lung apex. Low lung lines are seen. No s izable pleural effusion or pneumothorax. IMPRESSION: Moderate pulmonary vascular congestion and interstitial edema with cardiomegaly suggest decompensated congestive heart failure with findings exaggerated by low lung volumes.
--- NOTE | 2018-12-09 12:20 | XR ---
EXAMINATION TYPE: XR KUB DATE OF EXAM: 12/09/2018 12:16 PM CLINICAL HISTORY: Nausea and vomiting TECHNIQUE: Single upright image of the abdomen is obtained. COMPARISON: 01/22/2017. FINDINGS: Loop of nondilated small bowel is slightly more pronounced than the remaining loops of nond ilated small bowel but measures only 2.1 cm. No differential air-fluid levels. No dilated large bowel . Liver appears mildly enlarged. No pneumoperitoneum is seen. Osseous structures are grossly intact. Splenic granulomas are noted. IMPRESSION: Nonobstructive bowel gas pattern.
[2018-12-09] MEDS ORDERED: ASPIRIN 81 MG PO STA (13:21)
[2018-12-09] MEDS ORDERED: NITROGLYCERIN SL TABS 0.4 MG TAB SUBLINGUAL PRN ×2 (13:21→14:40)
[2018-12-09] MEDS ORDERED: HEPARIN SODIUM,PORCINE 5,000 UNIT/ML 1 ML VIAL IV ONE (13:21)
[2018-12-09] MEDS: HEPARIN SOD,PORK IN 0.45% NACL 25,000 UNIT in 0.45% NACL 1 250ML.BAG IV SCH (14:58)
[2018-12-09 20:48] LABS: Glucose,Whole Blood 262 mg/dL (75-99)
[2018-12-09] MEDS: INSULIN ASPART (NovoLOG) 100 UNIT/ML VIAL SQ SCH (21:51)
[2018-12-09] MEDS: amLODIPine 5 MG TAB PO SCH (21:51)
[2018-12-09] MEDS: METOPROLOL SUCCINATE (ER) 50 MG TAB.ER.24H PO SCH (21:51)
[2018-12-09] MEDS: ATORVASTATIN 80 MG TAB PO SCH (21:51)
[2018-12-09] MEDS: INSULIN DETEMIR (LEVEMIR) 100 UNIT/ML SYR SQ SCH (21:52)
[2018-12-09] MEDS: FAMOTIDINE 20 MG TAB PO SCH (21:52)
[2018-12-09] MEDS: HEPARIN SODIUM,PORCINE 5,000 UNIT/ML 1 ML VIAL IV PRN (23:01)
[2018-12-10 04:07] LABS: Appearance,Urine Clear (Clear); Bacteria,Urine Rare /hpf; Bilirubin,Urine Negative (Negative); Blood,Urine Trace (Negative); Color,Urine Yellow; Glucose,Urine (UA) 1+ (Negative); Ketones,Urine Negative (Negative); Leukocyte Esterase,Urine Negative (Negative); Nitrite,Urine Negative (Negative); PH, Urine 5.5 (5.0-8.0); Protein,Urine 2+ (Negative); RBC,Urine 4 /hpf (0-5); Specific Gravity,Urine 1.015 (1.001-1.035); Squamous Epithelial Cell,Urine <1 /hpf (0-4); Urobilinogen,Urine <2.0 mg/dL (<2.0); WBC,Urine 2 /hpf (0-5)
[2018-12-10 05:43] LABS: Glucose,Whole Blood 153 mg/dL (75-99)
[2018-12-10] MEDS: INSULIN ASPART (NovoLOG) 100 UNIT/ML VIAL SQ SCH ×4 (06:10→21:15)
[2018-12-10] MEDS: hydrALAZINE HCL 50 MG TAB PO SCH ×3 (06:10→17:27)
[2018-12-10 07:01] LABS: Anisocytosis Slight; HCT 26.3 % (34.0-46.0); HGB 8.8 gm/dL (11.4-16.0); Hypochromasia Slight; MCH 30.6 pg (25.0-35.0); MCHC 33.3 g/dL (31.0-37.0); Mean Platelet Volume 7.9; Platelet Count 229 k/uL (150-450); Poikilocytosis Slight; RBC 2.86 m/uL (3.80-5.40); RDW 16.3 % (11.5-15.5); WBC 9.5 k/uL (3.8-10.6)
[2018-12-10 07:28] LABS: Albumin 3.2 g/dL (3.5-5.0); Calcium 8.3 mg/dL (8.4-10.2); Magnesium 1.7 mg/dL (1.6-2.3); Potassium 3.5 mmol/L (3.5-5.1); Total Bilirubin 0.5 mg/dL (0.2-1.3); Total Protein 6.1 g/dL (6.3-8.2)
[2018-12-10] MEDS ORDERED: FUROSEMIDE 10 MG/ML 4 ML VIAL IV STA (07:53)
[2018-12-10] MEDS ORDERED: IPRATROPIUM-ALBUTEROL 3 ML NEB INHALATION PRN (08:01)
[2018-12-10] MEDS: BUDESONIDE 0.5 MG/2 ML NEBU INHALATION SCH ×2 (08:06→20:32)
[2018-12-10] MEDS: IPRATROPIUM-ALBUTEROL 3 ML NEB INHALATION SCH ×4 (08:06→20:33)
[2018-12-10] MEDS: HEPARIN SOD,PORK IN 0.45% NACL 25,000 UNIT in 0.45% NACL 1 250ML.BAG IV SCH (08:18)
[2018-12-10] MEDS: ISOSORBIDE MONONITRATE ER 60 MG TAB.ER.24H PO SCH (08:20)
[2018-12-10] MEDS: INSULIN DETEMIR (LEVEMIR) 100 UNIT/ML SYR SQ SCH ×2 (08:20→21:16)
[2018-12-10] MEDS: LORATADINE 10 MG TAB PO SCH (08:20)
[2018-12-10] MEDS: FAMOTIDINE 20 MG TAB PO SCH ×2 (08:20→20:07)
[2018-12-10] MEDS: ONDANSETRON 4 MG/2 ML VIAL IVP PRN (08:21)
[2018-12-10] MEDS: METOPROLOL SUCCINATE (ER) 50 MG TAB.ER.24H PO SCH ×2 (08:21→20:07)
[2018-12-10] MEDS: amLODIPine 5 MG TAB PO SCH ×2 (08:21→20:07)
[2018-12-10] MEDS: HEPARIN SODIUM,PORCINE 5,000 UNIT/ML 1 ML VIAL IV PRN (08:27)
[2018-12-10] MEDS ORDERED: LIRAGLUTIDE 0.6 MG SQ SCH (09:00)
[2018-12-10] MEDS ORDERED: ASPIRIN 325 MG TAB PO SCH (09:00)
--- NOTE | 2018-12-10 09:58 | ECHOF ---
Referral Reason:LV fx MEASUREMENTS -------- HEIGHT: 170.2 cm WEIGHT: 121.1 kg BP: IVSd: 1.4 cm (0.6 - 1.1) LVIDd: 5.7 cm (3.9 - 5.3) LVPWd: 1.7 cm (0.6 - 1.1) IVSs: 1.6 cm LVIDs: 4.0 cm LVPWs: 1.9 cm LA Diam: 4.5 cm (2.7 - 3.8) LAESV Index (A-L): 39.52 ml/m Ao Diam: 3.1 cm (2.0 - 3.7) AV Cusp: 1.2 cm (1.5 - 2.6) LA Diam: 4.4 cm (2.7 - 3.8) MV EXCURSION: 23.080 mm (> 18.000) MV EF SLOPE: 112 mm/s (70 - 150) EPSS: 0.7 cm MV E Porfirio: 1.30 m/s MV DecT: 188 ms MV A Porfirio: 0.94 m/s MV E/A Ratio: 1.39 RAP: 5.00 mmHg RVSP: 30.53 mmHg FINDINGS -------- Sinus rhythm. This was a technically adequate study. Morbid Obesity The left ventricular size is normal. Left ventricular wall thickness is normal. Overall left vent ricular systolic function is normal with, an EF between 55 - 60 %. The right ventricle is normal in size. The left atrium is mildly dilated. LA is midly dilated 29-33ml/m2. The right atrial size is normal. The aortic valve is trileaflet, and appears structurally normal. No aortic stenosis or regurgitation. Mild mitral annular calcification present. Mild mitral regurgitation is present. Mild tricuspid regurgitation present. There is no evidence of pulmonary hypertension. The right v entricular systolic pressure, as measured by Doppler, is 30.53mmHg. There is no pulmonic regurgitation present. The aortic root size is normal. IVC Not well visulized. There is no pericardial effusion. CONCLUSIONS -------- 1. This was a technically adequate study. 2. Morbid Obesity 3. The left ventricular size is normal. 4. Left ventricular wall thickness is normal. 5. Overall left ventricular systolic function is normal with, an EF between 55 - 60 %. 6. The right ventricle is normal in size. 7. The left atrium is mildly dilated. 8. LA is midly dilated 29-33ml/m2. 9. The right atrial size is normal. 10. The aortic valve is trileaflet, and appears structurally normal. No aortic stenosis or regurgitat ion. 11. Mild mitral annular calcification present. 12. Mild mitral regurgitation is present. 13. Mild tricuspid regurgitation present. 14. There is no evidence of pulmonary hypertension. 15. The right ventricular systolic pressure, as measured by Doppler, is 30.53mmHg. 16. There is no pulmonic regurgitation present. 17. The aortic root size is normal. 18. IVC Not well visulized. 19. There is no pericardial effusion. TRAFFIC CONTROL TECHNICIAN: Ami Montoya RDCS
--- NOTE | 2018-12-10 11:15 | P.HPIM ---
History of Present Illness H&P Date: 12/10/18 Chief Complaint: shortness of breath, chest pain,nausea ,vomiting, diarrhea this is a very pleasant 63-year-old female with a past medical history significant for CAD, CHF on diuretics at home, history of insulin-dependent diabetes mellitus comes into the ER with above-mentioned complaint. He has says that she's been having nausea vomiting and diarrhea for the past few days and she was not able to keep anything down. she was able to tolerate Jell-O and water. She said that symptoms are not improving so she came to the ER for further evaluation and management. Patient says that she was having burning chest pain and also was having some shortness of breath but she says that she uses CPAP at night but not able to use that for the past few days as she was having nausea vomiting. She does not complain of any cough, no abdominal pain, no tickling numbness of the extremities, and additional rest. Patient says that her symptoms of nausea vomiting and diarrhea have stabilized now. She still short of breath and not able to keep her sats up and she was put on nonre breather this morning. she says that she has gained about 10 pounds the last 4 weeks. ER course-temperature 98.2 pulse 66 respiration 20 blood pressure 135/66 satting 93% on 2 L. Labwork was initial WBC 9.5 hemoglobin 8.8 platelets 229 sodium 139 potassium 3.5 BUN68 creatinine 2.53HER TROPONIN LEVELS WERE 0.049, 0.074, 0.059 RESPECTIVELY. chest x-ray showed CHF.Patient was started on heparin drip she was also given a dose of Lasix 40 mg IV once and admitted to the hospitalist service for further evaluation and management. Review of Systems All systems: negative Past Medical History Past Medical History: Blood Disorder, Coronary Artery Disease (CAD), Heart Failure, Diabetes Mellitus, Hyperlipidemia, Hypertension, Myocardial Infarction ([place]), Renal Disease Additional Past Medical History / Comment(s): edema, seasonal allergies, Diabetic ulcer-SEES DR ZELAYA FOR WOUND CARE, anemia, neuropathy, CKD Last Myocardial Infarction Date:: 01/10/15 History of Any Multi-Drug Resistant Organisms: None Reported Past Surgical History: Heart Catheterization With Stent Additional Past Surgical History / Comment(s): PT HAD STENT TO DISTAL RCA IN DECEMBER 2014, carpal tunnel bilateral hands, Past Anesthesia/Blood Transfusion Reactions: Family History of Problems w/ Anesthesia, Motion Sickness Additional Past Anesthesia/Blood Transfusion Reaction / Comment(s): states mother had difficulty coming out of anesthesia Date of Last Stent Placement:: 12/30 Past Psychological History: Anxiety Additional Psychological History / Comment(s): Pt states she lives in her home with her adult neaggie and nephew. She is independent. She uses no assistive device. She drives. Smoking Status: Never smoker Past Alcohol Use History: None Reported Past Drug Use History: None Reported - Past Family History Brother(s) Family Medical History: Cancer Sister(s) Family Medical History: Diabetes Mellitus, Hypertension, Myocardial Infarction ([place]), Vascular Disorder Additional Family Medical History / Comment(s): post procedure of five stents Mother Family Medical History: CVA/TIA, Diabetes Mellitus, Myocardial Infarction ([place]) Additional Family Medical History / Comment(s): TIA's, PVD. Mother at age 65yrs. Father Family Medical History: Dementia, Diabetes Mellitus, Hypertension Additional Family Medical History / Comment(s): Father at age 72 yrs. Medications and Allergies Home Medications Medication Instructions Recorded Confirmed Type Loratadine [Claritin] 10 mg PO BID 01/05/15 12/09/18 History Aspirin 81 mg PO DAILY 04/16/15 12/09/18 History Atorvastatin [Lipitor] 80 mg PO HS 10/14/15 12/09/18 History Insulin Glargine [Lantus] 45 unit SQ BID 01/22/17 12/09/18 History amLODIPine [Norvasc] 5 mg PO BID 08/15/17 12/09/18 History hydrALAZINE HCL [Apresoline] 50 mg PO TID-W/MEALS 08/15/17 12/09/18 History Ranitidine HCl 150 mg PO BID 09/20/17 12/09/18 History Ferrous Sulfate [Iron (65 MG 325 mg PO DAILY 04/15/18 12/09/18 History Elemental)] Metolazone [Zaroxolyn] 2.5 mg PO TUFR 04/15/18 12/09/18 History Metoprolol Succinate [Toprol XL] 75 mg PO BID 06/17/18 12/09/18 History Insulin Lispro [Admelog] 15 units SQ TID 10/18/18 12/09/18 History Liraglutide [Victoza 3-Miles] 0.6 mg SQ DAILY 10/18/18 12/09/18 History Ergocalciferol [Vitamin D2] 50,000 unit PO FR 11/28/18 12/09/18 History Insulin Lispro [Admelog] See Protocol SQ TID 11/28/18 12/09/18 History Torsemide [Demadex] 20 mg PO BID 11/28/18 12/09/18 History Isosorbide Mononitrate ER [Imdur] 60 mg PO DAILY 12/09/18 12/09/18 History Allergies Allergy/AdvReac Type Severity Reaction Status Date / Time cephalexin monohydrate Allergy Rash/Hives Verified 12/09/18 10:41 [From Keflex] ciprofloxacin [From Cipro] Allergy Swelling Verified 12/09/18 10:41 ciprofloxacin HCl Allergy Swelling Verified 12/09/18 10:41 [From Cipro] codeine Allergy Unknown Verified 12/09/18 10:41 latex Allergy Itching Verified 12/09/18 10:41 sulfamethoxazole Allergy Itching Verified 12/09/18 10:41 [From Bactrim] trimethoprim [From Bactrim] Allergy Itching Verified 12/09/18 10:41 adhesive tape AdvReac Itching Verified 12/09/18 10:41 Physical Exam Vitals: Vital Signs Temp Pulse Pulse Resp BP BP Pulse Ox 12/10/18 08:20 66 12/10/18 08:08 66 93 L 12/10/18 08:00 97.7 F 96 30 H 153/70 92 L 12/10/18 04:00 98.2 F 80 20 138/72 93 L 12/10/18 03:37 20 12/10/18 00:00 98 F 77 20 135/69 95 12/09/18 20:00 97.5 F L 75 20 139/76 94 L 12/09/18 19:01 97.3 F L 66 18 137/66 94 L 12/09/18 18:41 97.3 F L 66 18 137/80 94 L 12/09/18 18:40 94 L 12/09/18 18:00 66 22 135/66 94 L 12/09/18 17:00 97.6 F 72 20 142/78 95 12/09/18 16:00 70 18 139/94 95 12/09/18 15:00 68 20 113/61 93 L 12/09/18 14:00 72 20 129/55 94 L 12/09/18 13:30 71 18 119/56 94 L 12/09/18 12:04 81 18 12/09/18 11:53 85 18 12/09/18 11:32 86 18 159/67 93 L Intake and Output 12/09/18 12/10/18 12/10/18 22:59 06:59 14:59 Intake Total 450 600.000 3.033 Output Total 300 Balance 450 600.000 -296.967 Intake: Intake, IV Titration 250.000 3.033 Amount Heparin Sod,Pork in 0.45% 250.000 3.033 NaCl 25,000 unit In 0.45 % NaCl 1 250ml.bag @ 10 mls/hr IV .Q24H [facility] Rx#: [id number] Oral 450 350 Output: Urine 300 Other: Voiding Method Bedside Commode # Voids 0 2 Weight 121.3 kg 134.4 kg On exam, alert and oriented x3. HEENT: Conjunctivae normal. eyes normal. NECK: positiveJVD. No thyroid enlargement. No LNs CARDIOVASCULAR: S1, S2 positive RESPIRATION: Breath sounds diminished in the bases. patient is having crackles appreciated bilaterally ABDOMEN: Soft, nontender . No guarding. no masses palpable. No ascites, No hepatosplenomegaly.Bowel sounds heard. LEGS: +1-2 pitting edema bilaterally NERVOUS SYSTEM: Cranial N 2-12 grossly normal. Moves all 4 limbs. No focal deficits. No sensory deficit. No signs of cerebellar dysfucntion. Skin: no ulcer no rash Lymphatic system. No LN neck axilla or groin. Results CBC & Chem 7: 12/10/18 06:34 12/10/18 06:34 Labs: Abnormal Lab Results - Last 24 Hours (Table) 12/09/18 12/09/18 12/09/18 Range/Units 10:50 10:50 10:53 WBC 16.2 H (3.8-10.6) k/uL RBC 3.05 L (3.80-5.40) m/uL Hgb 9.3 L (11.4-16.0) gm/dL Hct 27.7 L (34.0-46.0) % RDW 16.1 H (11.5-15.5) % Neutrophils # 14.9 H (1.3-7.7) k/uL Lymphocytes # 0.5 L (1.0-4.8) k/uL APTT (22.0-30.0) sec Sodium 136 L (137-145) mmol/L BUN 66 H (7-17) mg/dL Creatinine 2.49 H (0.52-1.04) mg/dL Glucose 243 H (74-99) mg/dL POC Glucose (mg/dL) (75-99) mg/dL Calcium (8.4-10.2) mg/dL Troponin I 0.049 H* (0.000-0.034) ng/mL Total Protein 6.2 L (6.3-8.2) g/dL Albumin 3.4 L (3.5-5.0) g/dL HDL Cholesterol (40-60) mg/dL Amylase <30 L (30-110) U/L Urine Protein (Negative) Urine Glucose (UA) (Negative) Urine Blood (Negative) Urine Bacteria (None) /hpf 12/09/18 12/09/18 12/09/18 Range/Units 17:10 20:46 21:37 WBC (3.8-10.6) k/uL RBC (3.80-5.40) m/uL Hgb (11.4-16.0) gm/dL Hct (34.0-46.0) % RDW (11.5-15.5) % Neutrophils # (1.3-7.7) k/uL Lymphocytes # (1.0-4.8) k/uL APTT (22.0-30.0) sec Sodium (137-145) mmol/L BUN (7-17) mg/dL Creatinine (0.52-1.04) mg/dL Glucose (74-99) mg/dL POC Glucose (mg/dL) 262 H (75-99) mg/dL Calcium (8.4-10.2) mg/dL Troponin I 0.074 H* 0.059 H* (0.000-0.034) ng/mL Total Protein (6.3-8.2) g/dL Albumin (3.5-5.0) g/dL HDL Cholesterol (40-60) mg/dL Amylase (30-110) U/L Urine Protein (Negative) Urine Glucose (UA) (Negative) Urine Blood (Negative) Urine Bacteria (None) /hpf 12/09/18 12/10/18 12/10/18 Range/Units 21:37 03:45 05:40 WBC (3.8-10.6) k/uL RBC (3.80-5.40) m/uL Hgb (11.4-16.0) gm/dL Hct (34.0-46.0) % RDW (11.5-15.5) % Neutrophils # (1.3-7.7) k/uL Lymphocytes # (1.0-4.8) k/uL APTT 30.9 H (22.0-30.0) sec Sodium (137-145) mmol/L BUN (7-17) mg/dL Creatinine (0.52-1.04) mg/dL Glucose (74-99) mg/dL POC Glucose (mg/dL) 153 H (75-99) mg/dL Calcium (8.4-10.2) mg/dL Troponin I (0.000-0.034) ng/mL Total Protein (6.3-8.2) g/dL Albumin (3.5-5.0) g/dL HDL Cholesterol (40-60) mg/dL Amylase (30-110) U/L Urine Protein 2+ H (Negative) Urine Glucose (UA) 1+ H (Negative) Urine Blood Trace H (Negative) Urine Bacteria Rare H (None) /hpf 12/10/18 12/10/18 12/10/18 Range/Units 06:34 06:34 06:34 WBC (3.8-10.6) k/uL RBC 2.86 L (3.80-5.40) m/uL Hgb 8.8 L (11.4-16.0) gm/dL Hct 26.3 L (34.0-46.0) % RDW 16.3 H (11.5-15.5) % Neutrophils # (1.3-7.7) k/uL Lymphocytes # (1.0-4.8) k/uL APTT 36.5 H (22.0-30.0) sec Sodium (137-145) mmol/L BUN 68 H (7-17) mg/dL Creatinine 2.53 H (0.52-1.04) mg/dL Glucose 115 H (74-99) mg/dL POC Glucose (mg/dL) (75-99) mg/dL Calcium 8.3 L (8.4-10.2) mg/dL Troponin I (0.000-0.034) ng/mL Total Protein 6.1 L (6.3-8.2) g/dL Albumin 3.2 L (3.5-5.0) g/dL HDL Cholesterol 27 L (40-60) mg/dL Amylase (30-110) U/L Urine Protein (Negative) Urine Glucose (UA) (Negative) Urine Blood (Negative) Urine Bacteria (None) /hpf Microbiology - Last 24 Hours (Table) 12/10/18 03:45 Urine Culture - Preliminary Urine,Voided Thrombosis Risk Factor Assmnt - Choose All That Apply Any of the Below Risk Factors Present?: Yes Each Factor Represents 1 point: Obesity (BMI >25), Swollen legs (current) Other Risk Factors: No Other congenital or acquired thrombophilia - If yes, enter type in comment: No Thrombosis Risk Factor Assessment Total Risk Factor Score: 2 Thrombosis Risk Factor Assessment Level: Low Risk Assessment and Plan Assessment: assessment - Acute CHF exacerbation - Acute respiratory failure secondary to above - ILANA on CK D probably because of CHF exacerbation - Nausea vomiting diarrhea probably due to gastroenteritis resolved for now - History of insulin-dependent diabetes mellitus - history of CAD - History of hypertension - History of hyperlipidemia Plan - Patient admitted to [facility] with telemetry - At this time the patient looks to be in fluid overload state as evidenced by her lower extremity edema, positivity and weight gain. Patient already got a dose of Lasix 40 mg IV in the morning. - We'll put her on 40 mg IV twice a day. Nephrology already consulted. Further causes of diabetes depending upon nephrology recommendations - Cardiology is consulted as the patient's troponin elevated she is on heparin for now. Echocardiogram was done this morning - We'll resume the patient's home medications - DVT and prophylaxis - We'll order for lab work in the morning - Expected length of stay is more than 2 midnights - Patient is full code Time with Patient: Greater than 30
[2018-12-10 11:29] LABS: Glucose,Whole Blood 235 mg/dL (75-99)
[2018-12-10] MEDS ORDERED: METOLAZONE 2.5 MG TAB PO SCH (12:00)
--- NOTE | 2018-12-10 12:14 | P.NPCON ---
History of Present Illness - Reason for Consult acute renal failure, chronic renal failure - History of Present Illness Reason for consultation: Acute kidney injury on chronic kidney disease History of present illness: Patient is a 63-year-old female seen in renal consultation for acute kidney injury on chronic kidney disease. Patient has chronic kidney disease stage IV secondary to diabetic kidney disease and cardiorenal syndrome. Baseline creatinine recently has been in the range of 1.8-2.3. This admission her creatinine was 2.49 and is up to 2.53 today. Patient denies any significant edema. Patient states she did become quite short of breath. Chest x-ray suggestive of fluid overload. At home she is maintained on Demadex 40 minute grams twice daily. Currently she is maintained on Lasix 40 mg IV twice daily. She admits to good urine output. She was also having vomiting and diarrhea prior to admission. Patient states she felt weak and thought she had the flu. However her influenza screen was negative. She hasn't had any vomiting or diarrhea since being in the hospital. Denies use of nonsteroidals. She is currently on a Ventimask. No hematuria or dysuria. Vital signs are stable. General: The patient appeared well nourished and normally developed. HEENT: Head exam is unremarkable. Neck is without jugular venous distension. LUNGS: Breath sounds decreased. HEART: Rate and Rhythm are regular. First and second heart sounds normal. No murmurs, rubs or gallops. ABDOMEN: Abdominal exam reveals normal bowel sounds. Non-tender and non- distended. No evidence of peritonitis. EXTREMITITES: Trace edema. Past Medical History Past Medical History: Blood Disorder, Coronary Artery Disease (CAD), Heart Failure, Diabetes Mellitus, Hyperlipidemia, Hypertension, Myocardial Infarction ([place]), Renal Disease Additional Past Medical History / Comment(s): edema, seasonal allergies, Diabetic ulcer-SEES DR ZELAYA FOR WOUND CARE, anemia, neuropathy, CKD Last Myocardial Infarction Date:: 01/10/15 History of Any Multi-Drug Resistant Organisms: None Reported Past Surgical History: Heart Catheterization With Stent Additional Past Surgical History / Comment(s): PT HAD STENT TO DISTAL RCA IN DECEMBER 2014, carpal tunnel bilateral hands, Past Anesthesia/Blood Transfusion Reactions: Family History of Problems w/ Anesthesia, Motion Sickness Additional Past Anesthesia/Blood Transfusion Reaction / Comment(s): states mother had difficulty coming out of anesthesia Date of Last Stent Placement:: 12/30 Past Psychological History: Anxiety Additional Psychological History / Comment(s): Pt states she lives in her home with her adult neaggie and nephew. She is independent. She uses no assistive device. She drives. Smoking Status: Never smoker Past Alcohol Use History: None Reported Past Drug Use History: None Reported - Past Family History Brother(s) Family Medical History: Cancer Sister(s) Family Medical History: Diabetes Mellitus, Hypertension, Myocardial Infarction ([place]), Vascular Disorder Additional Family Medical History / Comment(s): post procedure of five stents Mother Family Medical History: CVA/TIA, Diabetes Mellitus, Myocardial Infarction ([place]) Additional Family Medical History / Comment(s): TIA's, PVD. Mother at age 65yrs. Father Family Medical History: Dementia, Diabetes Mellitus, Hypertension Additional Family Medical History / Comment(s): Father at age 72 yrs. Medications and Allergies Home Medications Medication Instructions Recorded Confirmed Type Loratadine [Claritin] 10 mg PO BID 01/05/15 12/09/18 History Aspirin 81 mg PO DAILY 04/16/15 12/09/18 History Atorvastatin [Lipitor] 80 mg PO HS 10/14/15 12/09/18 History Insulin Glargine [Lantus] 45 unit SQ BID 01/22/17 12/09/18 History amLODIPine [Norvasc] 5 mg PO BID 08/15/17 12/09/18 History hydrALAZINE HCL [Apresoline] 50 mg PO TID-W/MEALS 08/15/17 12/09/18 History Ranitidine HCl 150 mg PO BID 09/20/17 12/09/18 History Ferrous Sulfate [Iron (65 MG 325 mg PO DAILY 04/15/18 12/09/18 History Elemental)] Metolazone [Zaroxolyn] 2.5 mg PO TUFR 04/15/18 12/09/18 History Metoprolol Succinate [Toprol XL] 75 mg PO BID 06/17/18 12/09/18 History Insulin Lispro [Admelog] 15 units SQ TID 10/18/18 12/09/18 History Liraglutide [Victoza 3-Miles] 0.6 mg SQ DAILY 10/18/18 12/09/18 History Ergocalciferol [Vitamin D2] 50,000 unit PO FR 11/28/18 12/09/18 History Insulin Lispro [Admelog] See Protocol SQ TID 11/28/18 12/09/18 History Torsemide [Demadex] 20 mg PO BID 11/28/18 12/09/18 History Isosorbide Mononitrate ER [Imdur] 60 mg PO DAILY 12/09/18 12/09/18 History Allergies Allergy/AdvReac Type Severity Reaction Status Date / Time cephalexin monohydrate Allergy Rash/Hives Verified 12/09/18 10:41 [From Keflex] ciprofloxacin [From Cipro] Allergy Swelling Verified 12/09/18 10:41 ciprofloxacin HCl Allergy Swelling Verified 12/09/18 10:41 [From Cipro] codeine Allergy Unknown Verified 12/09/18 10:41 latex Allergy Itching Verified 12/09/18 10:41 sulfamethoxazole Allergy Itching Verified 12/09/18 10:41 [From Bactrim] trimethoprim [From Bactrim] Allergy Itching Verified 12/09/18 10:41 adhesive tape AdvReac Itching Verified 12/09/18 10:41 Physical Exam Vitals: Vital Signs Temp Pulse Pulse Resp BP BP Pulse Ox 12/10/18 11:38 83 20 12/10/18 11:36 98.2 F 83 20 164/72 94 L 12/10/18 08:20 66 12/10/18 08:08 66 93 L 12/10/18 08:00 97.7 F 96 30 H 153/70 92 L 12/10/18 04:00 98.2 F 80 20 138/72 93 L 12/10/18 03:37 20 12/10/18 00:00 98 F 77 20 135/69 95 12/09/18 20:00 97.5 F L 75 20 139/76 94 L 12/09/18 19:01 97.3 F L 66 18 137/66 94 L 12/09/18 18:41 97.3 F L 66 18 137/80 94 L 12/09/18 18:40 94 L 12/09/18 18:00 66 22 135/66 94 L 12/09/18 17:00 97.6 F 72 20 142/78 95 12/09/18 16:00 70 18 139/94 95 12/09/18 15:00 68 20 113/61 93 L 12/09/18 14:00 72 20 129/55 94 L 12/09/18 13:30 71 18 119/56 94 L Intake and Output 12/09/18 12/10/18 12/10/18 22:59 06:59 14:59 Intake Total 450 600.000 3.033 Output Total 300 Balance 450 600.000 -296.967 Intake: Intake, IV Titration 250.000 3.033 Amount Heparin Sod,Pork in 0.45% 250.000 3.033 NaCl 25,000 unit In 0.45 % NaCl 1 250ml.bag @ 10 mls/hr IV .Q24H [facility] Rx#: [id number] Oral 450 350 Output: Urine 300 Other: Voiding Method Bedside Commode # Voids 0 2 Weight 121.3 kg 134.4 kg Results - Lab Results Most recent lab results Calcium 8.3 mg/dL (8.4-10.2) L 12/10/18 06:34 Magnesium 1.7 mg/dL (1.6-2.3) 12/10/18 06:34 12/10/18 06:34 12/10/18 06:34 Assessment and Plan Plan: Assessment: 1. Acute kidney injury mostly prerenal secondary to cardiorenal syndrome. Creatinine 2.53 today. 2. Chronic kidney disease stage IV secondary to diabetic kidney disease and cardiorenal syndrome with baseline creatinine recently the range of 1.9-2.3. 3. Volume overload. 4. Diastolic CHF. 5. Insulin-dependent diabetes mellitus. 6. Hypertension with chronic kidney disease. 7. Acute hypoxic respiratory failure secondary to volume overload. Plan: Maintain Lasix 40 mg IV twice daily. Low-salt diet. 1500 mL fluid restriction. Daily weights. Continue to monitor renal function and urine output. Thank you for the consultation. I will continue to follow the patient with you during her hospital stay.
--- NOTE | 2018-12-10 12:25 | P.CRDCN ---
History of Present Illness Consult date: 12/10/18 Requesting physician: Aylin Seymour Consult reason: congestive heart failure Chief complaint: vomiting and diarrhea History of present illness: This is a 63-year-old female who follows with Dr. Núñez in the office. She has a known history of hypertension, diabetes, chronic kidney disea se,coronary artery disease with prior PCI, morbid obesity, sleep apnea, who states she's not been using her CPAP for the past few days because of frequent episodes of vomiting and diarrhea. Since Sunday of last week, patient has been experiencing these symptoms. patient also states that with walking short distances recently she's noted herself to be short of breath.EKG on arrival here showed a normal sinus rhythm with a T wave inversion noted in the lateral leads.x-ray of the abdomen revealed a nonacute abdomen.Blood pressure 164/70,heart rate in the 80s.chest x-ray showed moderate pulmonary vascular congestion and interstitial edema with cardiomegaly, suggesting decompensated congestive heart failure.KUB showed nonobstructive bowel gas pattern.White blood cell count on admission 16.2, 9.5 this morning, hemoglobin 8.8, sodium 139, potassium 3.5, BUN 68 and creatinine 2.5.magnesium 1.7. BNP level 2370.troponin 0.04, 0.07, 0.05.influenza A and B-. At the time of my examination this m orning, patient currently hasa Ventimask in place of 40%, she is satting 94%. Past Medical History Past Medical History: Blood Disorder, Coronary Artery Disease (CAD), Heart Failure, Diabetes Mellitus, Hyperlipidemia, Hypertension, Myocardial Infarction (DC), Renal Disease Additional Past Medical History / Comment(s): edema, seasonal allergies, Diabetic ulcer-SEES DR ZELAYA FOR WOUND CARE, anemia, neuropathy, CKD Last Myocardial Infarction Date:: 01/10/15 History of Any Multi-Drug Resistant Organisms: None Reported Past Surgical History: Heart Catheterization With Stent Additional Past Surgical History / Comment(s): PT HAD STENT TO DISTAL RCA IN DECEMBER 2014, carpal tunnel bilateral hands, Past Anesthesia/Blood Transfusion Reactions: Family History of Problems w/ Anesthesia, Motion Sickness Additional Past Anesthesia/Blood Transfusion Reaction / Comment(s): states mother had difficulty coming out of anesthesia Date of Last Stent Placement:: 12/30 Past Psychological History: Anxiety Additional Psychological History / Comment(s): Pt states she lives in her home with her adult neaggie and nephew. She is independent. She uses no assistive device. She drives. Smoking Status: Never smoker Past Alcohol Use History: None Reported Past Drug Use History: None Reported - Past Family History Brother(s) Family Medical History: Cancer Sister(s) Family Medical History: Diabetes Mellitus, Hypertension, Myocardial Infarction (DC), Vascular Disorder Additional Family Medical History / Comment(s): post procedure of five stents Mother Family Medical History: CVA/TIA, Diabetes Mellitus, Myocardial Infarction (DC) Additional Family Medical History / Comment(s): TIA's, PVD. Mother at age 65yrs. Father Family Medical History: Dementia, Diabetes Mellitus, Hypertension Additional Family Medical History / Comment(s): Father at age 72 yrs. Medications and Allergies Home Medications Medication Instructions Recorded Confirmed Type Loratadine [Claritin] 10 mg PO BID 01/05/15 12/09/18 History Aspirin 81 mg PO DAILY 04/16/15 12/09/18 History Atorvastatin [Lipitor] 80 mg PO HS 10/14/15 12/09/18 History Insulin Glargine [Lantus] 45 unit SQ BID 01/22/17 12/09/18 History amLODIPine [Norvasc] 5 mg PO BID 08/15/17 12/09/18 History hydrALAZINE HCL [Apresoline] 50 mg PO TID-W/MEALS 08/15/17 12/09/18 History Ranitidine HCl 150 mg PO BID 09/20/17 12/09/18 History Ferrous Sulfate [Iron (65 MG 325 mg PO DAILY 04/15/18 12/09/18 History Elemental)] Metolazone [Zaroxolyn] 2.5 mg PO TUFR 04/15/18 12/09/18 History Metoprolol Succinate [Toprol XL] 75 mg PO BID 06/17/18 12/09/18 History Insulin Lispro [Admelog] 15 units SQ TID 10/18/18 12/09/18 History Liraglutide [Victoza 3-Miles] 0.6 mg SQ DAILY 10/18/18 12/09/18 History Ergocalciferol [Vitamin D2] 50,000 unit PO FR 11/28/18 12/09/18 History Insulin Lispro [Admelog] See Protocol SQ TID 11/28/18 12/09/18 History Torsemide [Demadex] 20 mg PO BID 11/28/18 12/09/18 History Isosorbide Mononitrate ER [Imdur] 60 mg PO DAILY 12/09/18 12/09/18 History Allergies Allergy/AdvReac Type Severity Reaction Status Date / Time cephalexin monohydrate Allergy Rash/Hives Verified 12/09/18 10:41 [From Keflex] ciprofloxacin [From Cipro] Allergy Swelling Verified 12/09/18 10:41 ciprofloxacin HCl Allergy Swelling Verified 12/09/18 10:41 [From Cipro] codeine Allergy Unknown Verified 12/09/18 10:41 latex Allergy Itching Verified 12/09/18 10:41 sulfamethoxazole Allergy Itching Verified 12/09/18 10:41 [From Bactrim] trimethoprim [From Bactrim] Allergy Itching Verified 12/09/18 10:41 adhesive tape AdvReac Itching Verified 12/09/18 10:41 Physical Exam Vitals: Vital Signs Temp Pulse Pulse Resp BP BP Pulse Ox 12/10/18 11:38 83 20 12/10/18 11:36 98.2 F 83 20 164/72 94 L 12/10/18 08:20 66 12/10/18 08:08 66 93 L 12/10/18 08:00 97.7 F 96 30 H 153/70 92 L 12/10/18 04:00 98.2 F 80 20 138/72 93 L 12/10/18 03:37 20 12/10/18 00:00 98 F 77 20 135/69 95 12/09/18 20:00 97.5 F L 75 20 139/76 94 L 12/09/18 19:01 97.3 F L 66 18 137/66 94 L 12/09/18 18:41 97.3 F L 66 18 137/80 94 L 12/09/18 18:40 94 L 12/09/18 18:00 66 22 135/66 94 L 12/09/18 17:00 97.6 F 72 20 142/78 95 12/09/18 16:00 70 18 139/94 95 12/09/18 15:00 68 20 113/61 93 L 12/09/18 14:00 72 20 129/55 94 L 12/09/18 13:30 71 18 119/56 94 L Intake and Output 12/09/18 12/10/18 12/10/18 22:59 06:59 14:59 Intake Total 450 600.000 3.033 Output Total 300 Balance 450 600.000 -296.967 Intake: Intake, IV Titration 250.000 3.033 Amount Heparin Sod,Pork in 0.45% 250.000 3.033 NaCl 25,000 unit In 0.45 % NaCl 1 250ml.bag @ 10 mls/hr IV .Q24H [facility] Rx#: [id number] Oral 450 350 Output: Urine 300 Other: Voiding Method Bedside Commode # Voids 0 2 Weight 121.3 kg 134.4 kg PHYSICAL EXAMINATION: GENERAL:63-year-old female in no acute distress at the time of my examination HEENT: Head is atraumatic, normocephalic. Pupils equal, round. Sclera anicteric. Conjunctiva are clear. Mucous membranes of the mouth are moist. Neck is supple. There is elevated jugular venous pressure.no carotid bruit is heard. HEART EXAMINATION: heart S1-S2 a systolic murmur is heard CHEST EXAMINATION:Lungs reveal diminished air entry to bilateral bases with fine rales noted to the bases bilaterally. ABDOMEN: [ Soft, nontender. Bowel sounds are heard. No organomegaly noted]. EXTREMITIES:[ 2+ peripheral pulses with trace evidence of peripheral edema and no calf tenderness noted]. NEUROLOGIC [patient is awake, alert and oriented 3.] . Results 12/10/18 06:34 12/10/18 06:34 Cardiac Enzymes 12/09/18 12/09/18 12/09/18 Range/Units 10:53 17:10 21:37 AST (14-36) U/L Troponin I 0.049 H* 0.074 H* 0.059 H* (0.000-0.034) ng/mL 12/10/18 Range/Units 06:34 AST 23 (14-36) U/L Troponin I (0.000-0.034) ng/mL Coagulation 12/09/18 12/10/18 Range/Units 21:37 06:34 APTT 30.9 H 36.5 H (22.0-30.0) sec Lipids 12/10/18 Range/Units 06:34 Triglycerides 141 (<150) mg/dL Cholesterol 99 (<200) mg/dL HDL Cholesterol 27 L (40-60) mg/dL CBC 12/10/18 Range/Units 06:34 WBC 9.5 (3.8-10.6) k/uL RBC 2.86 L (3.80-5.40) m/uL Hgb 8.8 L (11.4-16.0) gm/dL Hct 26.3 L (34.0-46.0) % Plt Count 229 (150-450) k/uL Comprehensive Metabolic Panel 12/10/18 Range/Units 06:34 Sodium 139 (137-145) mmol/L Potassium 3.5 (3.5-5.1) mmol/L Chloride 103 (98-107) mmol/L Carbon Dioxide 27 (22-30) mmol/L BUN 68 H (7-17) mg/dL Creatinine 2.53 H (0.52-1.04) mg/dL Glucose 115 H (74-99) mg/dL Calcium 8.3 L (8.4-10.2) mg/dL AST 23 (14-36) U/L ALT 35 (9-52) U/L Alkaline Phosphatase 87 (38-126) U/L Total Protein 6.1 L (6.3-8.2) g/dL Albumin 3.2 L (3.5-5.0) g/dL Current Medications Generic Name Dose Route Start Last Admin Trade Name Freq PRN Reason Stop Dose Admin Albuterol/Ipratropium 3 ml 12/10/18 08:00 12/10/18 08:06 Duoneb 0.5 Mg-3 Mg/3 Ml Soln INHALATION 3 ml RT-Q4H ELIS[facility] Administration Albuterol/Ipratropium 3 ml 12/10/18 08:01 Duoneb 0.5 Mg-3 Mg/3 Ml Soln INHALATION RT-Q2H PRN Shortness Of Breath Or Wheezing Amlodipine Besylate 5 mg 12/09/18 21:00 12/10/18 08:21 Norvasc PO 5 mg BID ELISABETH Administration Aspirin 325 mg 12/10/18 09:00 12/10/18 08:21 Aspirin PO 325 mg DAILY ELISABETH Administration Atorvastatin Calcium 80 mg 12/09/18 21:00 12/09/18 21:51 Lipitor PO 80 mg HS ELISABETH Administration Budesonide 0.5 mg 12/10/18 08:00 12/10/18 08:06 Pulmicort INHALATION 0.5 mg RT-BID ELISABETH Administration Famotidine 20 mg 12/09/18 21:00 12/10/18 08:20 Pepcid PO 20 mg BID ELISABETH Administration Furosemide 40 mg 12/10/18 21:00 Lasix IV Q12HR [facility] Heparin Sodium (Porcine) 0 unit 12/09/18 22:27 12/10/18 08:27 Heparin IV 4,000 unit PER PROTOCOL PRN Administration Low PTT Protocol Hydralazine HCl 50 mg 12/10/18 07:30 12/10/18 06:10 Apresoline PO 50 mg TID-W/MEALS ELISABETH Administration Heparin Sodium/Sodium Chloride 250 mls @ 10 mls/hr 12/09/18 13:30 12/10/18 08:32 25,000 unit/ Sodium Chloride IV 1,600 units/hr .Q24H [facility] 16 mls/hr Titration Protocol Insulin Aspart 0 unit 12/09/18 21:00 12/10/18 06:10 Novolog SQ 1 unit ACHS ELISABETH Administration Protocol Insulin Detemir 45 unit 12/09/18 21:00 12/10/18 08:20 Levemir SQ 20 unit BID ELISABETH Administration Isosorbide Mononitrate 60 mg 12/10/18 09:00 12/10/18 08:20 Imdur PO 60 mg DAILY ELISABETH Administration Loratadine 10 mg 12/10/18 09:00 12/10/18 08:20 Claritin PO 10 mg DAILY ELIASBETH Administration Metolazone 2.5 mg 12/10/18 12:00 Zaroxolyn PO TUFR ELISABETH Metoprolol Succinate 75 mg 12/09/18 21:00 12/10/18 08:21 Toprol Xl PO 75 mg BID ELISABETH Administration Nitroglycerin 0.4 mg 12/09/18 13:21 Nitrostat SUBLINGUAL Q5M PRN Chest Pain Ondansetron HCl 4 mg 12/10/18 07:54 12/10/18 08:21 Zofran IVP 4 mg Q6HR PRN Administration Nausea And Vomiting Intake and Output 12/09/18 12/10/18 12/10/18 22:59 06:59 14:59 Intake Total 450 600.000 3.033 Output Total 300 Balance 450 600.000 -296.967 Intake: Intake, IV Titration 250.000 3.033 Amount Heparin Sod,Pork in 0.45% 250.000 3.033 NaCl 25,000 unit In 0.45 % NaCl 1 250ml.bag @ 10 mls/hr IV .Q24H [facility] Rx#: [id number] Oral 450 350 Output: Urine 300 Other: Voiding Method Bedside Commode # Voids 0 2 Weight 121.3 kg 134.4 kg Patient Weight 12/11/18 06:59 Weight 134.4 kg 12/10/18 06:34 12/10/18 06:34 EKG Interpretations (text) EKG shows a normal sinus rhythm with no acute changes. Assessment and Plan Plan: assessment and plan #1 symptoms of vomiting and diarrhea, possible gastroenteritis, no evidence of influenza A or B. #2 diastolic congestive heart failure acute on chronic #3 anemia #4acute on chronic kidney disease #5 known history of coronary artery diseasewith prior RCA stenting #6 hypertension #7 hyperlipidemia #8 diabetes #9 sleep apnea #10 abnormality in troponin, could be secondary to hypoxia. plan Echocardiogram with Doppler study was performed which revealed an ejection fraction of 55-60%,we will decrease aspirin to 81 mg daily, continue current dose of IV Lasix.further recommendations to follow. DNP note has been reviewed, I agree with a documented findings and plan of care. Patient was seen and examined.
--- NOTE | 2018-12-10 14:02 | P.CNPUL ---
History of Present Illness Consult date: 12/10/18 Reason for consult: dyspnea, hypoxemia Chief complaint: shortness of breath History of present illness: This is a 63-year-old female who presented emergency department complaining of shortness of breath. The patient states she had also had nausea and vomiting for 3-4 days. She states she thought she had the flu. She did use her nebulizer at home. She also has known obstructive sleep apnea and states she wears her CPAP every night except for the nights she was vomiting. She does have lower extremity swelling and states it is a little bit better than her baseline. She denies a history of COPD and asthma. She does have a cardiac history and states she had a stent to her right coronary artery. She does not wear home oxygen. She is currently on Ventimask with O2 saturation 92%. She does note a cough productive of little bit of phlegm. She denies fevers and chills. She was last seen in our office on 11/12/2018 for sleep apnea follow- up. The patient's chest x-ray does show pulmonary vascular congestion and cardiomegaly. The patient does note that she has gained about 10 pounds in the last few weeks. Influenza is negative. Review of Systems All systems: negative Past Medical History Past Medical History: Blood Disorder, Coronary Artery Disease (CAD), Heart Failure, Diabetes Mellitus, Hyperlipidemia, Hypertension, Myocardial Infarction (ID), Renal Disease Additional Past Medical History / Comment(s): edema, seasonal allergies, Diabetic ulcer-SEES DR ZELAYA FOR WOUND CARE, anemia, neuropathy, CKD Last Myocardial Infarction Date:: 01/10/15 History of Any Multi-Drug Resistant Organisms: None Reported Past Surgical History: Heart Catheterization With Stent Additional Past Surgical History / Comment(s): PT HAD STENT TO DISTAL RCA IN DECEMBER 2014, carpal tunnel bilateral hands, Past Anesthesia/Blood Transfusion Reactions: Family History of Problems w/ Anesthesia, Motion Sickness Additional Past Anesthesia/Blood Transfusion Reaction / Comment(s): states mother had difficulty coming out of anesthesia Date of Last Stent Placement:: 12/30 Past Psychological History: Anxiety Additional Psychological History / Comment(s): Pt states she lives in her home with her adult neice and nephew. She is independent. She uses no assistive device. She drives. Smoking Status: Never smoker Past Alcohol Use History: None Reported Past Drug Use History: None Reported - Past Family History Brother(s) Family Medical History: Cancer Sister(s) Family Medical History: Diabetes Mellitus, Hypertension, Myocardial Infarction (ID), Vascular Disorder Additional Family Medical History / Comment(s): post procedure of five stents Mother Family Medical History: CVA/TIA, Diabetes Mellitus, Myocardial Infarction (ID) Additional Family Medical History / Comment(s): TIA's, PVD. Mother at age 65yrs. Father Family Medical History: Dementia, Diabetes Mellitus, Hypertension Additional Family Medical History / Comment(s): Father at age 72 yrs. Medications and Allergies Home Medications Medication Instructions Recorded Confirmed Type Loratadine [Claritin] 10 mg PO BID 01/05/15 12/09/18 History Aspirin 81 mg PO DAILY 04/16/15 12/09/18 History Atorvastatin [Lipitor] 80 mg PO HS 10/14/15 12/09/18 History Insulin Glargine [Lantus] 45 unit SQ BID 01/22/17 12/09/18 History amLODIPine [Norvasc] 5 mg PO BID 08/15/17 12/09/18 History hydrALAZINE HCL [Apresoline] 50 mg PO TID-W/MEALS 08/15/17 12/09/18 History Ranitidine HCl 150 mg PO BID 09/20/17 12/09/18 History Ferrous Sulfate [Iron (65 MG 325 mg PO DAILY 04/15/18 12/09/18 History Elemental)] Metolazone [Zaroxolyn] 2.5 mg PO TUFR 04/15/18 12/09/18 History Metoprolol Succinate [Toprol XL] 75 mg PO BID 06/17/18 12/09/18 History Insulin Lispro [Admelog] 15 units SQ TID 10/18/18 12/09/18 History Liraglutide [Victoza 3-Miles] 0.6 mg SQ DAILY 10/18/18 12/09/18 History Ergocalciferol [Vitamin D2] 50,000 unit PO FR 11/28/18 12/09/18 History Insulin Lispro [Admelog] See Protocol SQ TID 11/28/18 12/09/18 History Torsemide [Demadex] 20 mg PO BID 11/28/18 12/09/18 History Isosorbide Mononitrate ER [Imdur] 60 mg PO DAILY 12/09/18 12/09/18 History Allergies Allergy/AdvReac Type Severity Reaction Status Date / Time cephalexin monohydrate Allergy Rash/Hives Verified 12/09/18 10:41 [From Keflex] ciprofloxacin [From Cipro] Allergy Swelling Verified 12/09/18 10:41 ciprofloxacin HCl Allergy Swelling Verified 12/09/18 10:41 [From Cipro] codeine Allergy Unknown Verified 12/09/18 10:41 latex Allergy Itching Verified 12/09/18 10:41 sulfamethoxazole Allergy Itching Verified 12/09/18 10:41 [From Bactrim] trimethoprim [From Bactrim] Allergy Itching Verified 12/09/18 10:41 adhesive tape AdvReac Itching Verified 12/09/18 10:41 Physical Exam Osteopathic Statement: *. No significant issues noted on an osteopathic struc tural exam other than those noted in the History and Physical/Consult. Vitals: Vital Signs Temp Pulse Pulse Resp BP BP Pulse Ox 12/10/18 13:16 70 12/10/18 13:01 70 12/10/18 11:38 83 20 12/10/18 11:36 98.2 F 83 20 164/72 94 L 12/10/18 08:20 66 12/10/18 08:08 66 93 L 12/10/18 08:00 97.7 F 96 30 H 153/70 92 L 12/10/18 04:00 98.2 F 80 20 138/72 93 L 12/10/18 03:37 20 12/10/18 00:00 98 F 77 20 135/69 95 12/09/18 20:00 97.5 F L 75 20 139/76 94 L 12/09/18 19:01 97.3 F L 66 18 137/66 94 L 12/09/18 18:41 97.3 F L 66 18 137/80 94 L 12/09/18 18:40 94 L 12/09/18 18:00 66 22 135/66 94 L 12/09/18 17:00 97.6 F 72 20 142/78 95 12/09/18 16:00 70 18 139/94 95 12/09/18 15:00 68 20 113/61 93 L 12/09/18 14:00 72 20 129/55 94 L Intake and Output 12/09/18 12/10/18 12/10/18 22:59 06:59 14:59 Intake Total 450 600.000 225.033 Output Total 300 Balance 450 600.000 -74.967 Intake: Intake, IV Titration 250.000 3.033 Amount Heparin Sod,Pork in 0.45% 250.000 3.033 NaCl 25,000 unit In 0.45 % NaCl 1 250ml.bag @ 10 mls/hr IV .Q24H [facility] Rx#: [id number] Oral 450 350 222 Output: Urine 300 Other: Voiding Method Bedside Commode # Voids 0 2 Weight 121.3 kg 134.4 kg Gen.: Patient is alert and oriented 3, no acute distress, morbidly obese Cardiovascular: Regular rate and rhythm, S1/S2 Lungs: Diminished breath sounds with bilateral crackles Abdomen: Soft nontender nondistended positive bowel sounds Extremities: + Edema Results - Laboratory Findings CBC and BMP: 12/10/18 06:34 12/10/18 06:34 PT/INR, D-dimer PT 10.7 sec (9.0-12.0) 12/09/18 10:50 INR 1.0 (<1.2) 12/09/18 10:50 Abnormal lab findings: Abnormal Labs 12/09/18 12/09/18 12/09/18 10:50 10:50 10:53 WBC 16.2 H RBC 3.05 L Hgb 9.3 L Hct 27.7 L RDW 16.1 H Neutrophils # 14.9 H Lymphocytes # 0.5 L APTT Sodium 136 L BUN 66 H Creatinine 2.49 H Glucose 243 H POC Glucose (mg/dL) Calcium Troponin I 0.049 H* Total Protein 6.2 L Albumin 3.4 L HDL Cholesterol Amylase <30 L Urine Protein Urine Glucose (UA) Urine Blood Urine Bacteria 12/09/18 12/09/18 12/09/18 17:10 20:46 21:37 WBC RBC Hgb Hct RDW Neutrophils # Lymphocytes # APTT Sodium BUN Creatinine Glucose POC Glucose (mg/dL) 262 H Calcium Troponin I 0.074 H* 0.059 H* Total Protein Albumin HDL Cholesterol Amylase Urine Protein Urine Glucose (UA) Urine Blood Urine Bacteria 12/09/18 12/10/18 12/10/18 21:37 03:45 05:40 WBC RBC Hgb Hct RDW Neutrophils # Lymphocytes # APTT 30.9 H Sodium BUN Creatinine Glucose POC Glucose (mg/dL) 153 H Calcium Troponin I Total Protein Albumin HDL Cholesterol Amylase Urine Protein 2+ H Urine Glucose (UA) 1+ H Urine Blood Trace H Urine Bacteria Rare H 12/10/18 12/10/18 12/10/18 06:34 06:34 06:34 WBC RBC 2.86 L Hgb 8.8 L Hct 26.3 L RDW 16.3 H Neutrophils # Lymphocytes # APTT 36.5 H Sodium BUN 68 H Creatinine 2.53 H Glucose 115 H POC Glucose (mg/dL) Calcium 8.3 L Troponin I Total Protein 6.1 L Albumin 3.2 L HDL Cholesterol 27 L Amylase Urine Protein Urine Glucose (UA) Urine Blood Urine Bacteria 12/10/18 11:28 WBC RBC Hgb Hct RDW Neutrophils # Lymphocytes # APTT Sodium BUN Creatinine Glucose POC Glucose (mg/dL) 235 H Calcium Troponin I Total Protein Albumin HDL Cholesterol Amylase Urine Protein Urine Glucose (UA) Urine Blood Urine Bacteria - Diagnostic Findings Chest x-ray: report reviewed, image reviewed Assessment and Plan Assessment: Acute hypoxic respiratory failure Acute exacerbation of diastolic congestive heart failure Pulmonary edema NSTEMI Obstructive sleep apnea compliant with CPAP Gastroenteritis Anemia, normochromic, normcytic, chronic History of mild pulmonary hypertension with RVSP 41 mmHg, appears to be improving on most recent echo Acute kidney injury on chronic kidney disease stage IV Cardiorenal syndrome Diabetes mellitus type 2 History of coronary artery disease status post PCI Morbid obesity Hypertension Dyslipidemia Mild PCM O2 to maintain saturation greater than or equal to 90%, patient currently 92% on Venti mask Duo nebs Pulmicort I's and O's and daily weights Aggressive Diuresis Heparin drip per cardiology Incentive spirometry and pulmonary hygiene CPAP nightly and with naps, patient is on AutoCPAP 8-20 cmH20 at baseline, average pressure 11.5 cmH2O Cardiology and nephrology recommendations Thank you for this consultation. We will continue to follow along.
[2018-12-10 16:22] LABS: Glucose,Whole Blood 211 mg/dL (75-99)
[2018-12-10] MEDS: ATORVASTATIN 80 MG TAB PO SCH (20:07)
[2018-12-10] MEDS: FUROSEMIDE 10 MG/ML 4 ML VIAL IV SCH (20:08)
[2018-12-10 20:53] LABS: Glucose,Whole Blood 192 mg/dL (75-99)
[2018-12-10] MEDS ORDERED: HEPARIN SODIUM,PORCINE 5,000 UNIT/ML 1 ML VIAL SQ SCH (21:00)
[2018-12-11] MEDS: IPRATROPIUM-ALBUTEROL 3 ML NEB INHALATION SCH ×6 (00:33→21:10)
[2018-12-11 05:21] LABS: Glucose,Whole Blood 152 mg/dL (75-99)
[2018-12-11] MEDS ORDERED: HEPARIN SODIUM,PORCINE 5,000 UNIT/ML 1 ML VIAL IV PRN (05:49)
[2018-12-11] MEDS ORDERED: HEPARIN SOD,PORK IN 0.45% NACL 25,000 UNIT in 0.45% NACL 1 250ML.BAG IV SCH (06:00)
[2018-12-11] MEDS: INSULIN ASPART (NovoLOG) 100 UNIT/ML VIAL SQ SCH ×4 (06:03→22:02)
[2018-12-11] MEDS: hydrALAZINE HCL 50 MG TAB PO SCH ×3 (06:04→17:00)
[2018-12-11] MEDS: BUDESONIDE 0.5 MG/2 ML NEBU INHALATION SCH ×2 (06:07→21:08)
[2018-12-11 06:47] LABS: Anisocytosis Slight; Basophils % (A) 0 %; Eosinophils # (A) 0.2 k/uL (0-0.7); Eosinophils % (A) 2 %; HCT 25.1 % (34.0-46.0); HGB 8.3 gm/dL (11.4-16.0); Lymphocytes # (A) 0.8 k/uL (1.0-4.8); Lymphocytes % (A) 8 %; MCH 30.1 pg (25.0-35.0); MCHC 32.9 g/dL (31.0-37.0); MCV 91.4 fL (80.0-100.0); Mean Platelet Volume 7.5; Monocytes # (A) 0.5 k/uL (0-1.0); Monocytes % (A) 5 %; Neutrophils # (A) 8.5 k/uL (1.3-7.7); Neutrophils % (A) 84 %; Platelet Count 240 k/uL (150-450); Poikilocytosis Slight; RBC 2.75 m/uL (3.80-5.40); RDW 16.4 % (11.5-15.5); WBC 10.1 k/uL (3.8-10.6)
[2018-12-11 06:51] LABS: Calcium 8.6 mg/dL (8.4-10.2); Magnesium 1.7 mg/dL (1.6-2.3)
[2018-12-11 06:53] LABS: Partial Thromboplastin Time 25.8 sec (22.0-30.0); Prothrombin Time 10.3 sec (9.0-12.0)
[2018-12-11] MEDS: ISOSORBIDE MONONITRATE ER 60 MG TAB.ER.24H PO SCH (08:15)
[2018-12-11] MEDS: LORATADINE 10 MG TAB PO SCH (08:16)
[2018-12-11] MEDS: FAMOTIDINE 20 MG TAB PO SCH ×2 (08:16→20:31)
[2018-12-11] MEDS: amLODIPine 5 MG TAB PO SCH (08:16)
[2018-12-11] MEDS: METOPROLOL SUCCINATE (ER) 50 MG TAB.ER.24H PO SCH ×2 (08:16→20:31)
[2018-12-11] MEDS: FUROSEMIDE 10 MG/ML 4 ML VIAL IV SCH ×2 (08:16→20:30)
[2018-12-11] MEDS ORDERED: ASPIRIN 81 MG PO SCH (09:00)
[2018-12-11] MEDS: INSULIN DETEMIR (LEVEMIR) 100 UNIT/ML SYR SQ SCH ×2 (09:30→21:53)
[2018-12-11] MEDS ORDERED: METOPROLOL TARTRATE 5 MG/5 ML VIAL IVP PRN (10:02)
--- NOTE | 2018-12-11 11:08 | P.PN ---
Subjective Patient says that she had a rough night yesterday. She was desatting and had to be put on BiPAP She is on nasal cannula now She's complains of shortness of breath, no chest pain or racing heart no abdominal pain Objective - Vital Signs Vital signs: Vital Signs Temp 97.3 F L 12/11/18 04:00 Pulse 119 H 12/11/18 06:21 Resp 20 12/11/18 04:00 BP 149/79 12/11/18 04:00 Pulse Ox 91 L 12/11/18 06:12 Intake & Output 12/10/18 12/11/18 12/11/18 18:59 06:59 18:59 Intake Total 485.033 300 240 Output Total 1550 1700 Balance -1064.967 -1400 240 Weight 134.4 kg 134.1 kg Intake: Intake, IV Titration 3.033 Amount Heparin Sod,Pork in 0.45% 3.033 NaCl 25,000 unit In 0.45 % NaCl 1 250ml.bag @ 10 mls/hr IV .Q24H [facility] Rx#: [id number] Oral 482 300 240 Output: Urine 1550 1700 Other: Voiding Method Bedside Commode Bedside Commode # Voids 1 1 - Exam On exam, alert and oriented x3. HEENT: Conjunctivae normal. eyes normal. NECK: No JVD. No thyroid enlargement. No LNs CARDIOVASCULAR: S1, S2 muffled. No murmur RESPIRATION: Breath sounds diminished in the bases. He is having crackles and wheezing. ABDOMEN: Soft, nontender . No guarding. no masses palpable. No ascites, No hepatosplenomegaly.Bowel sounds heard. LEGS: +1 pitting edema NERVOUS SYSTEM: Cranial N 2-12 grossly normal. Moves all 4 limbs. No focal deficits. No sensory deficit. No signs of cerebellar dysfucntion. Skin: no ulcer no rash - Labs CBC & Chem 7: 12/11/18 06:04 12/11/18 06:04 Labs: Abnormal Lab Results - Last 24 Hours (Table) 12/10/18 12/10/18 12/10/18 Range/Units 11:28 14:01 16:18 RBC (3.80-5.40) m/uL Hgb (11.4-16.0) gm/dL Hct (34.0-46.0) % RDW (11.5-15.5) % Neutrophils # (1.3-7.7) k/uL Lymphocytes # (1.0-4.8) k/uL APTT 34.2 H (22.0-30.0) sec BUN (7-17) mg/dL Creatinine (0.52-1.04) mg/dL Glucose (74-99) mg/dL POC Glucose (mg/dL) 235 H 211 H (75-99) mg/dL 12/10/18 12/11/18 12/11/18 Range/Units 20:51 05:19 06:04 RBC (3.80-5.40) m/uL Hgb (11.4-16.0) gm/dL Hct (34.0-46.0) % RDW (11.5-15.5) % Neutrophils # (1.3-7.7) k/uL Lymphocytes # (1.0-4.8) k/uL APTT (22.0-30.0) sec BUN 72 H (7-17) mg/dL Creatinine 2.57 H (0.52-1.04) mg/dL Glucose 117 H (74-99) mg/dL POC Glucose (mg/dL) 192 H 152 H (75-99) mg/dL 12/11/18 Range/Units 06:04 RBC 2.75 L (3.80-5.40) m/uL Hgb 8.3 L (11.4-16.0) gm/dL Hct 25.1 L (34.0-46.0) % RDW 16.4 H (11.5-15.5) % Neutrophils # 8.5 H (1.3-7.7) k/uL Lymphocytes # 0.8 L (1.0-4.8) k/uL APTT (22.0-30.0) sec BUN (7-17) mg/dL Creatinine (0.52-1.04) mg/dL Glucose (74-99) mg/dL POC Glucose (mg/dL) (75-99) mg/dL Microbiology - Last 24 Hours (Table) 12/09/18 10:50 Blood Culture - Preliminary Blood No Growth after 24 hours 12/10/18 03:45 Urine Culture - Preliminary Urine,Voided Assessment and Plan Assessment: assessment - Acute CHF exacerbation - Acute respiratory failure secondary to above - ILANA on CK D probably because of CHF exacerbation - Nausea vomiting diarrhea probably due to gastroenteritis resolved for now - History of insulin-dependent diabetes mellitus - history of CAD - History of hypertension - History of hyperlipidemia Plan - We'll continue the Lasix for now - Patient seems to be wheezing I think is probably cardiac wheeze. We'll continue with the breathing treatments. I don't to put on any steroids as there is a chance of fluid recommendation with steroids. - Nephrology on board. We'll appreciate the recommendations regarding diuretic dosing - Cardiology on board. She still on heparin drip will wait for cardiology's further recommendations regarding this - She apparently had short run of A. fib last night. She is oriented heparin drip and she is on beta mono. We'll put her on Lopressor IV every 6 hours when necessary for heart rate more than 120. - We'll follow with the patient Time with Patient: Less than 30
[2018-12-11 11:26] LABS: Glucose,Whole Blood 304 mg/dL (75-99)
--- NOTE | 2018-12-11 11:41 | P.PN ---
Subjective Patient is seen in follow-up for acute kidney injury on chronic kidney disease. Patient has chronic kidney disease stage IV secondary to diabetic kidney disease and cardiorenal syndrome. Baseline creatinine recently has been in the range of 1.8-2.3. Renal function is stable today. Admits to good urine output. She went into A. fib with RVR last night and is currently maintained on heparin drip. She is maintained on Lasix 40 mg IV twice daily. Good urine output. Vital signs are stable. General: The patient appeared well nourished and normally developed. HEENT: Head exam is unremarkable. Neck is without jugular venous distension. LUNGS: Breath sounds decreased. HEART: Rate and Rhythm are regular. First and second heart sounds normal. No murmurs, rubs or gallops. ABDOMEN: Abdominal exam reveals normal bowel sounds. Non-tender and non- distended. No evidence of peritonitis. EXTREMITITES: Trace edema. Objective - Vital Signs Vital signs: Vital Signs Temp 98.2 F 12/11/18 08:00 Pulse 110 H 12/11/18 08:00 Resp 20 12/11/18 08:00 BP 155/82 12/11/18 08:00 Pulse Ox 90 L 12/11/18 08:00 Intake & Output 12/10/18 12/11/18 12/11/18 18:59 06:59 18:59 Intake Total 485.033 300 240 Output Total 1550 1700 Balance -1064.967 -1400 240 Weight 134.4 kg 134.1 kg Intake: Intake, IV Titration 3.033 Amount Heparin Sod,Pork in 0.45% 3.033 NaCl 25,000 unit In 0.45 % NaCl 1 250ml.bag @ 10 mls/hr IV .Q24H [facility] Rx#: [id number] Oral 482 300 240 Output: Urine 1550 1700 Other: Voiding Method Bedside Commode Bedside Commode Bedside Commode # Voids 1 1 - Labs CBC & Chem 7: 12/11/18 06:04 12/11/18 06:04 Labs: Abnormal Lab Results - Last 24 Hours (Table) 12/10/18 12/10/18 12/10/18 Range/Units 14:01 16:18 20:51 RBC (3.80-5.40) m/uL Hgb (11.4-16.0) gm/dL Hct (34.0-46.0) % RDW (11.5-15.5) % Neutrophils # (1.3-7.7) k/uL Lymphocytes # (1.0-4.8) k/uL APTT 34.2 H (22.0-30.0) sec BUN (7-17) mg/dL Creatinine (0.52-1.04) mg/dL Glucose (74-99) mg/dL POC Glucose (mg/dL) 211 H 192 H (75-99) mg/dL 12/11/18 12/11/18 12/11/18 Range/Units 05:19 06:04 06:04 RBC 2.75 L (3.80-5.40) m/uL Hgb 8.3 L (11.4-16.0) gm/dL Hct 25.1 L (34.0-46.0) % RDW 16.4 H (11.5-15.5) % Neutrophils # 8.5 H (1.3-7.7) k/uL Lymphocytes # 0.8 L (1.0-4.8) k/uL APTT (22.0-30.0) sec BUN 72 H (7-17) mg/dL Creatinine 2.57 H (0.52-1.04) mg/dL Glucose 117 H (74-99) mg/dL POC Glucose (mg/dL) 152 H (75-99) mg/dL 12/11/18 Range/Units 11:24 RBC (3.80-5.40) m/uL Hgb (11.4-16.0) gm/dL Hct (34.0-46.0) % RDW (11.5-15.5) % Neutrophils # (1.3-7.7) k/uL Lymphocytes # (1.0-4.8) k/uL APTT (22.0-30.0) sec BUN (7-17) mg/dL Creatinine (0.52-1.04) mg/dL Glucose (74-99) mg/dL POC Glucose (mg/dL) 304 H (75-99) mg/dL Microbiology - Last 24 Hours (Table) 12/09/18 10:50 Blood Culture - Preliminary Blood No Growth after 24 hours 12/10/18 03:45 Urine Culture - Preliminary Urine,Voided Assessment and Plan Plan: Assessment: 1. Acute kidney injury mostly prerenal secondary to cardiorenal syndrome. Creatinine 2.57 today. Renal function stable. 2. Chronic kidney disease stage IV secondary to diabetic kidney disease and cardiorenal syndrome with baseline creatinine recently the range of 1.9-2.3. 3. Volume overload maintained on diuretics. 4. Diastolic CHF. 5. Insulin-dependent diabetes mellitus. 6. Hypertension with chronic kidney disease. Stable. 7. Acute hypoxic respiratory failure secondary to volume overload. 8. A defibrillation with RVR maintained on heparin drip. Plan: Maintain Lasix 40 mg IV twice daily. Low-salt diet. 1500 mL fluid restriction. Daily weights. Continue to monitor renal function and urine output. Repeat chest x-ray tomorrow.
[2018-12-11] MEDS: APIXABAN 2.5 MG TABLET PO SCH ×2 (12:25→20:30)
--- NOTE | 2018-12-11 12:36 | P.PN ---
Subjective Progress Note Date: 12/11/18 This is a 63-year-old female who follows with Dr. Núñez in the office. She has a known history of hypertension, diabetes, chronic kidney disease,coronary artery disease with prior PCI, morbid obesity, sleep apnea, who states she's not been using her CPAP for the past few days because of frequent episodes of vomiting and diarrhea. Since Sunday of last week, patient has been experiencing these symptoms. patient also states that with walking short distances recently she's noted herself to be short of breath.EKG on arrival here showed a normal sinus rhythm with a T wave inversion noted in the lateral leads.x-ray of the abdomen revealed a nonacute abdomen.Blood pressure 164/70,heart rate in the 80s.chest x-ray showed moderate pulmonary vascular congestion and interstitial edema with cardiomegaly, suggesting decompensated congestive heart failure.KUB showed nonobstructive bowel gas pattern.White blood cell count on admission 16.2, 9.5 this morning, hemoglobin 8.8, sodium 139, potassium 3.5, BUN 68 and creatinine 2.5.magnesium 1.7. BNP level 2370.troponin 0.04, 0.07, 0.05.influenza A and B-. At the time of my examination this morning, patient currently hasa Ventimask in place of 40%, she is satting 94%. 12/11/2018 Patient was seen and examined this morning, yesterday evening she went into atrial fibrillation with a rapid ventricular response, she was quite short of breath and hypoxic at that time. This morning she does continue however to be in atrial fibrillation. Overall she is feeling better today.blood pressure 155/80 with a heart rate of 110, 94% on 8 L of oxygen. We will discontinue her IV heparin today and start the patient on 2-1/2 mg of Eliquis twice a day. Decrease Lipitor, discontinue aspirin, discontinue Norvasc and add Cardizem 60 mg one tablet by mouth 3 times a day to the patient's medication regime.White blood cell count 10.1, hemoglobin 8.3, platelet count 240. Sodium 139, potassium 4.0, BUN 72 and creatinine 2.5. Objective - Vital Signs Vital signs: Vital Signs Temp 98.2 F 12/11/18 08:00 Pulse 100 12/11/18 12:13 Resp 20 12/11/18 08:00 BP 155/82 12/11/18 08:00 Pulse Ox 94 L 12/11/18 12:01 Intake & Output 12/10/18 12/11/18 12/11/18 18:59 06:59 18:59 Intake Total 485.033 300 240 Output Total 1550 1700 Balance -1064.967 -1400 240 Weight 134.4 kg 134.1 kg Intake: Intake, IV Titration 3.033 Amount Heparin Sod,Pork in 0.45% 3.033 NaCl 25,000 unit In 0.45 % NaCl 1 250ml.bag @ 10 mls/hr IV .Q24H [facility] Rx#: [id number] Oral 482 300 240 Output: Urine 1550 1700 Other: Voiding Method Bedside Commode Bedside Commode Bedside Commode # Voids 1 1 - Exam PHYSICAL EXAMINATION: GENERAL:63-year-old female in no acute distress at the time of my examination HEENT: Head is atraumatic, normocephalic. Pupils equal, round. Sclera anicteric. Conjunctiva are clear. Mucous membranes of the mouth are moist. Neck is supple. There is elevated jugular venous pressure.no carotid bruit is heard. HEART EXAMINATION: heart S1-S2 a systolic murmur is heard CHEST EXAMINATION:Lungs reveal diminished air entry to bilateral bases with fine rales noted to the bases bilaterally. ABDOMEN: [ Soft, nontender. Bowel sounds are heard. No organomegaly noted]. EXTREMITIES:[ 2+ peripheral pulses with trace evidence of peripheral edema and no calf tenderness noted]. NEUROLOGIC [patient is awake, alert and oriented 3.] - Labs CBC & Chem 7: 12/11/18 06:04 12/11/18 06:04 Labs: Abnormal Lab Results - Last 24 Hours (Table) 12/10/18 12/10/18 12/10/18 Range/Units 14:01 16:18 20:51 RBC (3.80-5.40) m/uL Hgb (11.4-16.0) gm/dL Hct (34.0-46.0) % RDW (11.5-15.5) % Neutrophils # (1.3-7.7) k/uL Lymphocytes # (1.0-4.8) k/uL APTT 34.2 H (22.0-30.0) sec BUN (7-17) mg/dL Creatinine (0.52-1.04) mg/dL Glucose (74-99) mg/dL POC Glucose (mg/dL) 211 H 192 H (75-99) mg/dL 12/11/18 12/11/18 12/11/18 Range/Units 05:19 06:04 06:04 RBC 2.75 L (3.80-5.40) m/uL Hgb 8.3 L (11.4-16.0) gm/dL Hct 25.1 L (34.0-46.0) % RDW 16.4 H (11.5-15.5) % Neutrophils # 8.5 H (1.3-7.7) k/uL Lymphocytes # 0.8 L (1.0-4.8) k/uL APTT (22.0-30.0) sec BUN 72 H (7-17) mg/dL Creatinine 2.57 H (0.52-1.04) mg/dL Glucose 117 H (74-99) mg/dL POC Glucose (mg/dL) 152 H (75-99) mg/dL 12/11/18 Range/Units 11:24 RBC (3.80-5.40) m/uL Hgb (11.4-16.0) gm/dL Hct (34.0-46.0) % RDW (11.5-15.5) % Neutrophils # (1.3-7.7) k/uL Lymphocytes # (1.0-4.8) k/uL APTT (22.0-30.0) sec BUN (7-17) mg/dL Creatinine (0.52-1.04) mg/dL Glucose (74-99) mg/dL POC Glucose (mg/dL) 304 H (75-99) mg/dL Microbiology - Last 24 Hours (Table) 12/09/18 10:50 Blood Culture - Preliminary Blood No Growth after 24 hours 12/10/18 03:45 Urine Culture - Preliminary Urine,Voided Assessment and Plan Plan: assessment and plan #1 symptoms of vomiting and diarrhea, possible gastroenteritis, no evidence of influenza A or B. #2 diastolic congestive heart failure acute on chronic #3 anemia #4acute on chronic kidney disease #5 known history of coronary artery diseasewith prior RCA stenting #6 hypertension #7 hyperlipidemia #8 diabetes #9 sleep apnea #10 abnormality in troponin, could be secondary to hypoxia. #11 paroxysmal atrial fibrillation plan Echocardiogram with Doppler study was performed which revealed an ejection fraction of 55-60%. Patient did go into atrial fibrillation last night which is new for her. We will discontinue the IV heparin and start the patient on Eliquis. Decrease Lipitor dose, discontinue aspirin, discontinue Norvasc and start the patient on Cardizem 30 mg one tablet by mouth 3 times a day today. DNP note has been reviewed, I agree with a documented findings and plan of care. Patient was seen and examined.
[2018-12-11] MEDS: DILTIAZEM ORAL 60 MG TAB PO SCH ×3 (12:40→21:53)
--- NOTE | 2018-12-11 14:15 | P.PN ---
Subjective Progress Note Date: 12/11/18 12/11/2017: Patient seen and examined. Patient is on 8 L high flow nasal cannula. She does have a nosebleed at this time. She is also on heparin drip and is being transitioned to quit. The patient states her breathing is feeling better today. But she does note that she is not back to baseline. Objective - Vital Signs Vital signs: Vital Signs Temp 97.7 F 12/11/18 12:33 Pulse 110 H 12/11/18 12:33 Resp 20 12/11/18 12:33 BP 168/76 12/11/18 12:33 Pulse Ox 92 L 12/11/18 12:33 Intake & Output 12/10/18 12/11/18 12/11/18 18:59 06:59 18:59 Intake Total 485.033 300 684 Output Total 1550 1700 Balance -1064.967 -1400 684 Weight 134.4 kg 134.1 kg Intake: Intake, IV Titration 3.033 Amount Heparin Sod,Pork in 0.45% 3.033 NaCl 25,000 unit In 0.45 % NaCl 1 250ml.bag @ 10 mls/hr IV .Q24H [facility] Rx#: [id number] Oral 482 300 684 Output: Urine 1550 1700 Other: Voiding Method Bedside Commode Bedside Commode Bedside Commode # Voids 1 1 - Exam Gen.: Patient is alert and oriented 3, no acute distress, morbidly obese Cardiovascular: Regular rate and rhythm, S1/S2 Lungs: Diminished breath sounds with bilateral crackles Abdomen: Soft nontender nondistended positive bowel sounds Extremities: + Edema - Labs CBC & Chem 7: 12/11/18 06:04 12/11/18 06:04 Labs: Abnormal Lab Results - Last 24 Hours (Table) 12/10/18 12/10/18 12/10/18 Range/Units 14:01 16:18 20:51 RBC (3.80-5.40) m/uL Hgb (11.4-16.0) gm/dL Hct (34.0-46.0) % RDW (11.5-15.5) % Neutrophils # (1.3-7.7) k/uL Lymphocytes # (1.0-4.8) k/uL APTT 34.2 H (22.0-30.0) sec BUN (7-17) mg/dL Creatinine (0.52-1.04) mg/dL Glucose (74-99) mg/dL POC Glucose (mg/dL) 211 H 192 H (75-99) mg/dL 12/11/18 12/11/18 12/11/18 Range/Units 05:19 06:04 06:04 RBC 2.75 L (3.80-5.40) m/uL Hgb 8.3 L (11.4-16.0) gm/dL Hct 25.1 L (34.0-46.0) % RDW 16.4 H (11.5-15.5) % Neutrophils # 8.5 H (1.3-7.7) k/uL Lymphocytes # 0.8 L (1.0-4.8) k/uL APTT (22.0-30.0) sec BUN 72 H (7-17) mg/dL Creatinine 2.57 H (0.52-1.04) mg/dL Glucose 117 H (74-99) mg/dL POC Glucose (mg/dL) 152 H (75-99) mg/dL 12/11/18 Range/Units 11:24 RBC (3.80-5.40) m/uL Hgb (11.4-16.0) gm/dL Hct (34.0-46.0) % RDW (11.5-15.5) % Neutrophils # (1.3-7.7) k/uL Lymphocytes # (1.0-4.8) k/uL APTT (22.0-30.0) sec BUN (7-17) mg/dL Creatinine (0.52-1.04) mg/dL Glucose (74-99) mg/dL POC Glucose (mg/dL) 304 H (75-99) mg/dL Microbiology - Last 24 Hours (Table) 12/09/18 10:50 Blood Culture - Preliminary Blood No Growth after 48 hours 12/10/18 03:45 Urine Culture - Preliminary Urine,Voided Assessment and Plan Assessment: Acute hypoxic respiratory failure Acute exacerbation of diastolic congestive heart failure Pulmonary edema NSTEMI Obstructive sleep apnea compliant with CPAP Gastroenteritis Anemia, normochromic, normcytic, chronic History of mild pulmonary hypertension with RVSP 41 mmHg, appears to be improving on most recent echo Acute kidney injury on chronic kidney disease stage IV Cardiorenal syndrome Diabetes mellitus type 2 History of coronary artery disease status post PCI Morbid obesity Hypertension Dyslipidemia Mild PCM O2 to maintain saturation greater than or equal to 90%, patient currently 92% on Venti mask Duo nebs Pulmicort I's and O's and daily weights Aggressive Diuresis Heparin drip per cardiology - changed to Eliquis Incentive spirometry and pulmonary hygiene CPAP nightly and with naps, patient is on AutoCPAP 8-20 cmH20 at baseline, average pressure 11.5 cmH2O Cardiology and nephrology recommendations Afrin and Nasal saline for nose bleed AM CXR
[2018-12-11 16:46] LABS: Glucose,Whole Blood 318 mg/dL (75-99)
[2018-12-11] MEDS: SALINE NASAL GEL 14.1 GM TUBE TOPICAL PRN (17:01)
[2018-12-11] MEDS: ATORVASTATIN 40 MG TAB PO SCH (20:31)
[2018-12-11 20:49] LABS: Glucose,Whole Blood 300 mg/dL (75-99)
[2018-12-11] MEDS: OXYMETAZOLINE 0.05% NASL SPRAY 1 SPRAY BOTTLE NASAL SCH (21:53)
[2018-12-11] MEDS ORDERED: ACETAMINOPHEN TAB 325 MG TAB PO PRN (22:03)
[2018-12-12] MEDS: IPRATROPIUM-ALBUTEROL 3 ML NEB INHALATION SCH ×7 (00:15→23:46)
[2018-12-12 05:54] LABS: Glucose,Whole Blood 275 mg/dL (75-99)
[2018-12-12] MEDS: hydrALAZINE HCL 50 MG TAB PO SCH ×3 (06:45→18:16)
[2018-12-12] MEDS: INSULIN ASPART (NovoLOG) 100 UNIT/ML VIAL SQ SCH ×4 (06:46→21:40)
[2018-12-12] MEDS: BUDESONIDE 0.5 MG/2 ML NEBU INHALATION SCH (07:07)
--- NOTE | 2018-12-12 07:18 | XR ---
EXAMINATION TYPE: XR chest 1V portable DATE OF EXAM: 12/12/2018 HISTORY: Shortness of breath. COMPARISON: 12/09/2018 TECHNIQUE: Single view of the chest is submitted. FINDINGS: Demonstrated are scattered senescent parenchymal change. Diffuse airspace infiltrates have progressed in the interval. Suspect small effusions. Findings may r eflect pulmonary edema or diffuse pneumonia. Follow-up and clinical correlation advised. The heart is stable. Hilar and mediastinal structures are within normal limits. Degenerative changes are seen of the dorsal spine. IMPRESSION: 1. Diffuse airspace infiltrates have progressed in the interval. Suspect small effusions. Findings m ay reflect pulmonary edema or diffuse pneumonia. Follow-up and clinical correlation advised.
[2018-12-12 08:16] LABS: Basophils % (A) 0 %; Eosinophils # (A) 0.1 k/uL (0-0.7); Eosinophils % (A) 1 %; HCT 24.9 % (34.0-46.0); Hypochromasia Slight; Lymphocytes # (A) 0.9 k/uL (1.0-4.8); Lymphocytes % (A) 8 %; MCH 29.6 pg (25.0-35.0); MCHC 32.1 g/dL (31.0-37.0); MCV 92.3 fL (80.0-100.0); Mean Platelet Volume 7.8; Monocytes # (A) 0.5 k/uL (0-1.0); Monocytes % (A) 5 %; Neutrophils # (A) 9.4 k/uL (1.3-7.7); Neutrophils % (A) 84 %; Platelet Count 275 k/uL (150-450); Poikilocytosis Slight; RDW 15.9 % (11.5-15.5); WBC 11.2 k/uL (3.8-10.6)
[2018-12-12 08:26] LABS: Calcium 8.8 mg/dL (8.4-10.2)
[2018-12-12] MEDS: APIXABAN 2.5 MG TABLET PO SCH ×2 (08:42→21:06)
[2018-12-12] MEDS: FAMOTIDINE 20 MG TAB PO SCH (08:42)
[2018-12-12] MEDS: ISOSORBIDE MONONITRATE ER 60 MG TAB.ER.24H PO SCH (08:42)
[2018-12-12] MEDS: INSULIN DETEMIR (LEVEMIR) 100 UNIT/ML SYR SQ SCH ×2 (08:43→21:16)
[2018-12-12] MEDS: METOPROLOL SUCCINATE (ER) 50 MG TAB.ER.24H PO SCH ×2 (08:43→21:05)
[2018-12-12] MEDS: DILTIAZEM ORAL 60 MG TAB PO SCH ×3 (08:43→21:07)
[2018-12-12] MEDS: OXYMETAZOLINE 0.05% NASL SPRAY 1 SPRAY BOTTLE NASAL SCH ×2 (08:43→21:07)
[2018-12-12] MEDS: LORATADINE 10 MG TAB PO SCH (08:43)
[2018-12-12] MEDS: FUROSEMIDE 10 MG/ML 4 ML VIAL IV SCH (09:45)
--- NOTE | 2018-12-12 10:44 | P.PN ---
Subjective Patient is seen in follow-up for acute kidney injury on chronic kidney disease. Patient has chronic kidney disease stage IV secondary to diabetic kidney disease and cardiorenal syndrome. Baseline creatinine recently has been in the range of 1.8-2.3. Renal function is worse today - creatinine 2.73. Admits to good urine output. She went into A. fib with RVR this admission and is maintained on Lopressor and Cardizem. She is maintained on Lasix 40 mg IV twice daily. Good urine output. Still quite dyspneic. Vital signs are stable. General: The patient appeared well nourished and normally developed. HEENT: Head exam is unremarkable. Neck is without jugular venous distension. LUNGS: Breath sounds decreased. HEART: Rate and Rhythm are regular. First and second heart sounds normal. No murmurs, rubs or gallops. ABDOMEN: Abdominal exam reveals normal bowel sounds. Non-tender and non- distended. No evidence of peritonitis. EXTREMITITES: 1+ edema. Objective - Vital Signs Vital signs: Vital Signs Temp 98.9 F 12/12/18 03:51 Pulse 80 12/12/18 07:24 Resp 20 12/12/18 03:51 BP 141/61 12/12/18 03:51 Pulse Ox 92 L 12/12/18 03:51 Intake & Output 12/11/18 12/12/18 12/12/18 18:59 06:59 18:59 Intake Total 1904 480 240 Output Total 1150 2150 Balance 754 -1670 240 Intake: Oral 1904 480 240 Output: Urine 1150 2150 Other: Voiding Method Bedside Commode Bedside Commode # Voids 3 - Labs CBC & Chem 7: 12/12/18 07:19 12/12/18 07:19 Labs: Abnormal Lab Results - Last 24 Hours (Table) 12/11/18 12/11/18 12/11/18 Range/Units 11:24 16:40 20:47 WBC (3.8-10.6) k/uL RBC (3.80-5.40) m/uL Hgb (11.4-16.0) gm/dL Hct (34.0-46.0) % RDW (11.5-15.5) % Neutrophils # (1.3-7.7) k/uL Lymphocytes # (1.0-4.8) k/uL Sodium (137-145) mmol/L BUN (7-17) mg/dL Creatinine (0.52-1.04) mg/dL Glucose (74-99) mg/dL POC Glucose (mg/dL) 304 H 318 H 300 H (75-99) mg/dL 12/12/18 12/12/18 12/12/18 Range/Units 05:53 07:19 07:19 WBC 11.2 H (3.8-10.6) k/uL RBC 2.70 L (3.80-5.40) m/uL Hgb 8.0 L (11.4-16.0) gm/dL Hct 24.9 L (34.0-46.0) % RDW 15.9 H (11.5-15.5) % Neutrophils # 9.4 H (1.3-7.7) k/uL Lymphocytes # 0.9 L (1.0-4.8) k/uL Sodium 136 L (137-145) mmol/L BUN 80 H (7-17) mg/dL Creatinine 2.72 H (0.52-1.04) mg/dL Glucose 218 H (74-99) mg/dL POC Glucose (mg/dL) 275 H (75-99) mg/dL Microbiology - Last 24 Hours (Table) 12/10/18 03:45 Urine Culture - Final Urine,Voided 12/09/18 10:50 Blood Culture - Preliminary Blood No Growth after 48 hours Assessment and Plan Plan: Assessment: 1. Acute kidney injury mostly prerenal secondary to cardiorenal syndrome. Creatinine 2.72 today. Renal function worse due to diuresis. 2. Chronic kidney disease stage IV secondary to diabetic kidney disease and cardiorenal syndrome with baseline creatinine recently the range of 1.9-2.3. 3. Volume overload maintained on diuretics. 4. Diastolic CHF. 5. Insulin-dependent diabetes mellitus. 6. Hypertension with chronic kidney disease. Stable. 7. Acute hypoxic respiratory failure secondary to volume overload. 8. A defibrillation with RVR maintained on Cardizem and Lopressor. Plan: Maintain Lasix 40 mg IV twice daily. I will give her 60 mg this evening. Low-salt diet. 1500 mL fluid restriction. Daily weights. Continue to monitor renal function and urine output.
[2018-12-12] MEDS ORDERED: LEVOFLOXACIN 500MG-D5W PMX 500 MG in DEXTROSE/WATER 1 100ML.BAG IVPB SCH ×2 (11:00→13:00)
--- NOTE | 2018-12-12 11:39 | P.PN ---
Subjective Progress Note Date: 12/12/18 12/12/2018: Patient seen and examined. Patient again has a nosebleed this morning. She is on 10 L high flow nasal cannula. The patient did have a temperature of 100.4 overnight. She states she is coughing but unable to produce phlegm. She is still very short of breath. Objective - Vital Signs Vital signs: Vital Signs Temp 97.3 F L 12/12/18 08:00 Pulse 100 12/12/18 08:00 Resp 22 12/12/18 08:00 BP 150/71 12/12/18 08:00 Pulse Ox 93 L 12/12/18 08:00 Intake & Output 12/11/18 12/12/18 12/12/18 18:59 06:59 18:59 Intake Total 1904 480 240 Output Total 1150 2150 Balance 754 -1670 240 Intake: Oral 1904 480 240 Output: Urine 1150 2150 Other: Voiding Method Bedside Commode Bedside Commode Bedside Commode # Voids 3 - Exam Gen.: Patient is alert and oriented 3, no acute distress, morbidly obese Cardiovascular: Regular rate and rhythm, S1/S2 Lungs: Diminished breath sounds with bilateral crackles Abdomen: Soft nontender nondistended positive bowel sounds Extremities: + Edema - Labs CBC & Chem 7: 12/12/18 07:19 12/12/18 07:19 Labs: Abnormal Lab Results - Last 24 Hours (Table) 12/11/18 12/11/18 12/12/18 Range/Units 16:40 20:47 05:53 WBC (3.8-10.6) k/uL RBC (3.80-5.40) m/uL Hgb (11.4-16.0) gm/dL Hct (34.0-46.0) % RDW (11.5-15.5) % Neutrophils # (1.3-7.7) k/uL Lymphocytes # (1.0-4.8) k/uL Sodium (137-145) mmol/L BUN (7-17) mg/dL Creatinine (0.52-1.04) mg/dL Glucose (74-99) mg/dL POC Glucose (mg/dL) 318 H 300 H 275 H (75-99) mg/dL 12/12/18 12/12/18 Range/Units 07:19 07:19 WBC 11.2 H (3.8-10.6) k/uL RBC 2.70 L (3.80-5.40) m/uL Hgb 8.0 L (11.4-16.0) gm/dL Hct 24.9 L (34.0-46.0) % RDW 15.9 H (11.5-15.5) % Neutrophils # 9.4 H (1.3-7.7) k/uL Lymphocytes # 0.9 L (1.0-4.8) k/uL Sodium 136 L (137-145) mmol/L BUN 80 H (7-17) mg/dL Creatinine 2.72 H (0.52-1.04) mg/dL Glucose 218 H (74-99) mg/dL POC Glucose (mg/dL) (75-99) mg/dL Microbiology - Last 24 Hours (Table) 12/10/18 03:45 Urine Culture - Final Urine,Voided 12/09/18 10:50 Blood Culture - Preliminary Blood No Growth after 48 hours Assessment and Plan Assessment: Acute hypoxic respiratory failure Acute exacerbation of diastolic congestive heart failure Pulmonary edema NSTEMI Obstructive sleep apnea compliant with CPAP Gastroenteritis Anemia, normochromic, normcytic, chronic History of mild pulmonary hypertension with RVSP 41 mmHg, appears to be improving on most recent echo Acute kidney injury on chronic kidney disease stage IV Cardiorenal syndrome Diabetes mellitus type 2 History of coronary artery disease status post PCI Morbid obesity Hypertension Dyslipidemia Mild PCM O2 to maintain saturation greater than or equal to 90%, patient currently 92% on Venti mask Duo nebs Pulmicort -increase to 1 mg BID I's and O's and daily weights Aggressive Diuresis Heparin drip per cardiology - changed to Eliquis Incentive spirometry and pulmonary hygiene CPAP nightly and with naps, patient is on AutoCPAP 8-20 cmH20 at baseline, a verage pressure 11.5 cmH2O Cardiology and nephrology recommendations Afrin and Nasal saline for nose bleed Chest x-ray reviewed Add Zosyn and Levaquin Add Mucinex Sputum and blood cultures, check legionella and mycoplasma
[2018-12-12 11:53] LABS: Glucose,Whole Blood 300 mg/dL (75-99)
[2018-12-12] MEDS: guaiFENesin 600 MG TABLET.ER PO SCH ×2 (12:14→21:06)
[2018-12-12] MEDS: PIPERACILLIN-TAZOBACTAM 3.375 GM in SODIUM CHLORIDE 0.9% 100 ML IVPB SCH ×2 (12:14→17:23)
--- NOTE | 2018-12-12 12:38 | P.PN ---
Subjective Progress Note Date: 12/12/18 This is a 63-year-old female who follows with Dr. Núñez in the office. She has a known history of hypertension, diabetes, chronic kidney disease,coronary artery disease with prior PCI, morbid obesity, sleep apnea, who states she's not been using her CPAP for the past few days because of frequent episodes of vomiting and diarrhea. Since Sunday of last week, patient has been experiencing these symptoms. patient also states that with walking short distances recently she's noted herself to be short of breath.EKG on arrival here showed a normal sinus rhythm with a T wave inversion noted in the lateral leads.x-ray of the abdomen revealed a nonacute abdomen.Blood pressure 164/70,heart rate in the 80s.chest x-ray showed moderate pulmonary vascular congestion and interstitial edema with cardiomegaly, suggesting decompensated congestive heart failure.KUB showed nonobstructive bowel gas pattern.White blood cell count on admission 16.2, 9.5 this morning, hemoglobin 8.8, sodium 139, potassium 3.5, BUN 68 and creatinine 2.5.magnesium 1.7. BNP level 2370.troponin 0.04, 0.07, 0.05.influenza A and B-. At the time of my examination this morning, patient currently hasa Ventimask in place of 40%, she is satting 94%. 12/11/2018 Patient was seen and examined this morning, yesterday evening she went into atrial fibrillation with a rapid ventricular response, she was quite short of breath and hypoxic at that time. This morning she does continue however to be in atrial fibrillation. Overall she is feeling better today.blood pressure 155/80 with a heart rate of 110, 94% on 8 L of oxygen. We will discontinue her IV heparin today and start the patient on 2-1/2 mg of Eliquis twice a day. Decrease Lipitor, discontinue aspirin, discontinue Norvasc and add Cardizem 60 mg one tablet by mouth 3 times a day to the patient's medication regime.White blood cell count 10.1, hemoglobin 8.3, platelet count 240. Sodium 139, potassium 4.0, BUN 72 and creatinine 2.5. 05/14/2019 Patient seen and examined this morning, overall feeling well. Blood pressure 150/70, heart rate in the 80s, 93% on 10 L of high flow. White blood cell count 11.2, hemoglobin 8.0, platelet count 275. Sodium 136, potassium 4.0, BUN 80 and creatinine 2.7. From cardiology's perspective, we'll recommend to discontinue the Zaroxolyn, diuretics as per nephrology. Objective - Vital Signs Vital signs: Vital Signs Temp 97.3 F L 12/12/18 08:00 Pulse 84 12/12/18 11:53 Resp 18 12/12/18 11:53 BP 150/71 12/12/18 08:00 Pulse Ox 93 L 12/12/18 08:00 Intake & Output 12/11/18 12/12/18 12/12/18 18:59 06:59 18:59 Intake Total 1904 480 240 Output Total 1150 2150 Balance 754 -1670 240 Intake: Oral 1904 480 240 Output: Urine 1150 2150 Other: Voiding Method Bedside Commode Bedside Commode Bedside Commode # Voids 3 - Exam PHYSICAL EXAMINATION: GENERAL:63-year-old female in no acute distress at the time of my examination HEENT: Head is atraumatic, normocephalic. Pupils equal, round. Sclera anicteric. Conjunctiva are clear. Mucous membranes of the mouth are moist. Neck is supple. There is elevated jugular venous pressure.no carotid bruit is heard. HEART EXAMINATION: heart S1-S2 a systolic murmur is heard CHEST EXAMINATION:Lungs reveal diminished air entry to bilateral bases with fine rales noted to the bases bilaterally. ABDOMEN: [ Soft, nontender. Bowel sounds are heard. No organomegaly noted]. EXTREMITIES:[ 2+ peripheral pulses with trace evidence of peripheral edema and no calf tenderness noted]. NEUROLOGIC [patient is awake, alert and oriented 3.] - Labs CBC & Chem 7: 12/12/18 07:19 12/12/18 07:19 Labs: Abnormal Lab Results - Last 24 Hours (Table) 12/11/18 12/11/18 12/12/18 Range/Units 16:40 20:47 05:53 WBC (3.8-10.6) k/uL RBC (3.80-5.40) m/uL Hgb (11.4-16.0) gm/dL Hct (34.0-46.0) % RDW (11.5-15.5) % Neutrophils # (1.3-7.7) k/uL Lymphocytes # (1.0-4.8) k/uL Sodium (137-145) mmol/L BUN (7-17) mg/dL Creatinine (0.52-1.04) mg/dL Glucose (74-99) mg/dL POC Glucose (mg/dL) 318 H 300 H 275 H (75-99) mg/dL 12/12/18 12/12/18 12/12/18 Range/Units 07:19 07:19 11:52 WBC 11.2 H (3.8-10.6) k/uL RBC 2.70 L (3.80-5.40) m/uL Hgb 8.0 L (11.4-16.0) gm/dL Hct 24.9 L (34.0-46.0) % RDW 15.9 H (11.5-15.5) % Neutrophils # 9.4 H (1.3-7.7) k/uL Lymphocytes # 0.9 L (1.0-4.8) k/uL Sodium 136 L (137-145) mmol/L BUN 80 H (7-17) mg/dL Creatinine 2.72 H (0.52-1.04) mg/dL Glucose 218 H (74-99) mg/dL POC Glucose (mg/dL) 300 H (75-99) mg/dL Microbiology - Last 24 Hours (Table) 12/10/18 03:45 Urine Culture - Final Urine,Voided 12/09/18 10:50 Blood Culture - Preliminary Blood No Growth after 48 hours Assessment and Plan Plan: assessment and plan #1 symptoms of vomiting and diarrhea, possible gastroenteritis, no evidence of influenza A or B. #2 diastolic congestive heart failure acute on chronic #3 anemia #4acute on chronic kidney disease #5 known history of coronary artery diseasewith prior RCA stenting #6 hypertension #7 hyperlipidemia #8 diabetes #9 sleep apnea #10 abnormality in troponin, could be secondary to hypoxia. #11 paroxysmal atrial fibrillation plan Echocardiogram with Doppler study was performed which revealed an ejection fraction of 55-60%. She continues to be in atrial fibrillation, rate under adequate control today. We will discontinue Zaroxolyn today, diuretics as per nephrology. DNP note has been reviewed, I agree with a documented findings and plan of care. Patient was seen and examined.
[2018-12-12 16:53] LABS: Glucose,Whole Blood 369 mg/dL (75-99)
[2018-12-12] MEDS: ONDANSETRON 4 MG/2 ML VIAL IVP PRN ×2 (17:18→22:25)
[2018-12-12] MEDS ORDERED: FUROSEMIDE 10 MG/ML 10 ML VIAL IV ONE (18:00)
[2018-12-12 20:30] LABS: Glucose,Whole Blood 401 mg/dL (75-99)
[2018-12-12] MEDS: BUDESONIDE 1 MG/2 ML NEBU INHALATION SCH (20:33)
[2018-12-12] MEDS: ATORVASTATIN 40 MG TAB PO SCH (21:06)
--- NOTE | 2018-12-12 23:54 | PN ---
PROGRESS NOTE DATE OF SERVICE: 12/12/2018 This 63-year-old woman who was admitted with CHF, acute exacerbation, also had acute respiratory failure. The patient also had acute kidney injury. Currently the creatinine was found to be 2.72 and on admission it was 2.49. Glucose was also elevated. Past medical history reviewed. REVIEW OF SYSTEMS: CARDIOVASCULAR SYSTEM: No angina, palpitations. RESPIRATORY SYSTEM: As mentioned earlier. GI: As mentioned earlier. : No dysuria or retention. NERVOUS SYSTEM: No numbness, weakness. CURRENT MEDICATIONS: Reviewed. They include: 1. Tylenol 650 q.6 p.r.n. 2. DuoNeb q.i.d. and p.r.n. 3. Eliquis 2.5 mg b.i.d. 4. Lipitor 40 mg at bedtime. 5. Pulmicort 1 mg. 6. Cardizem 60 mg t.i.d. 7. Pepcid 20 mg daily. 8. Lasix. 9. Apresoline 50 mg daily. 10.NovoLog. 11.Levemir 45 units subcutaneously b.i.d. 12.Levaquin. 13.Claritin. 14.Toprol-XL. 15.Lopressor. 16.Nitrostat. 17.Zofran. 18.Zosyn 3.375 IV q.8. PHYSICAL EXAMINATION: Patient is alert, oriented x3. Pulse is 104, blood pressure 145/67, respiration 22, temperature 98.4, pulse ox 94% on 10 L high flow. HEENT: Conjunctivae normal. Oral mucosa moist. NECK: No jugular venous distention. No carotid bruit. No lymph node enlargement. CARDIOVASCULAR SYSTEM: S1, S2 muffled. RESPIRATORY SYSTEM: Breath sounds diminished at the bases. Bilateral scattered rhonchi and crackles. ABDOMEN: Soft, non-tender. LEGS: No edema. No swelling. NERVOUS SYSTEM: No focal deficit. LABS: Labs at this time show WBC 11.2, hemoglobin 8, sodium 136. Other labs are noted. The last chest x-ray was done this morning which was personally reviewed by me. It showed diffuse airspace infiltrate which has actually progressed. ASSESSMENT: 1. Congestive heart failure, acute exacerbation, with acute and chronic diastolic dysfunction, ejection fraction 50% to 60%. 2. Bilateral pneumonia possibly gram neg 3. History of acute hypoxic respiratory failure. 4. Acute kidney injury, possibly secondary to congestive heart failure, acute exacerbation. 5. Nausea, vomiting; possible acute gastroenteritis. 6. History of diabetes mellitus, type 2. 7. Coronary artery disease. 8. Hypertension. 9. Hyperlipidemia. RECOMMENDATIONS AND DISCUSSION: In this 63-year-old woman who presented with multiple complex medical issues, we will monitor the patient closely, continue the current management, continue with symptomatic treatment. Will patient the closely with Cardiology and Pulmonology. Otherwise, blood sugars will be monitored closely. The patient is on broad-spectrum IV antibiotics. We will continue to monitor. Patient was on Victoza at home. We will monitor the blood sugars closely. Further recommendations to follow. MMODL / IJN: [id number] / CHRISTIAN
[2018-12-13] MEDS: PIPERACILLIN-TAZOBACTAM 3.375 GM in SODIUM CHLORIDE 0.9% 100 ML IVPB SCH ×3 (01:05→23:04)
[2018-12-13] MEDS: IPRATROPIUM-ALBUTEROL 3 ML NEB INHALATION SCH ×5 (03:57→20:24)
[2018-12-13 06:00] LABS: Glucose,Whole Blood 306 mg/dL (75-99)
[2018-12-13 06:34] LABS: Basophils % (A) 0 %; Eosinophils % (A) 0 %; HCT 22.1 % (34.0-46.0); HGB 7.3 gm/dL (11.4-16.0); Lymphocytes # (A) 0.7 k/uL (1.0-4.8); Lymphocytes % (A) 6 %; MCH 29.5 pg (25.0-35.0); MCV 89.4 fL (80.0-100.0); Mean Platelet Volume 7.4; Monocytes # (A) 0.7 k/uL (0-1.0); Monocytes % (A) 6 %; Neutrophils # (A) 10.2 k/uL (1.3-7.7); Neutrophils % (A) 86 %; Platelet Count 259 k/uL (150-450); Poikilocytosis Slight; RBC 2.47 m/uL (3.80-5.40); RDW 15.8 % (11.5-15.5); WBC 11.8 k/uL (3.8-10.6)
[2018-12-13] MEDS: hydrALAZINE HCL 50 MG TAB PO SCH ×3 (06:44→18:03)
[2018-12-13 06:45] LABS: Calcium 8.8 mg/dL (8.4-10.2); Potassium 4.4 mmol/L (3.5-5.1)
[2018-12-13] MEDS: ONDANSETRON 4 MG/2 ML VIAL IVP PRN ×2 (06:47→20:11)
[2018-12-13 06:53] LABS: Mycoplasma IgM Antibody 0.3 INDEX (<=0.90)
[2018-12-13] MEDS: INSULIN ASPART (NovoLOG) 100 UNIT/ML VIAL SQ SCH ×4 (07:31→22:41)
[2018-12-13] MEDS: BUDESONIDE 1 MG/2 ML NEBU INHALATION SCH ×2 (08:22→20:24)
[2018-12-13] MEDS: OXYMETAZOLINE 0.05% NASL SPRAY 1 SPRAY BOTTLE NASAL SCH ×2 (08:58→22:31)
[2018-12-13] MEDS: ISOSORBIDE MONONITRATE ER 60 MG TAB.ER.24H PO SCH (08:58)
[2018-12-13] MEDS: guaiFENesin 600 MG TABLET.ER PO SCH ×2 (08:58→22:30)
[2018-12-13] MEDS: APIXABAN 2.5 MG TABLET PO SCH ×2 (08:58→22:30)
[2018-12-13] MEDS: DILTIAZEM ORAL 60 MG TAB PO SCH ×3 (08:59→22:29)
[2018-12-13] MEDS: METOPROLOL SUCCINATE (ER) 50 MG TAB.ER.24H PO SCH ×2 (08:59→22:29)
[2018-12-13] MEDS: LORATADINE 10 MG TAB PO SCH (08:59)
[2018-12-13] MEDS: INSULIN DETEMIR (LEVEMIR) 100 UNIT/ML SYR SQ SCH ×2 (08:59→22:41)
[2018-12-13] MEDS ORDERED: FUROSEMIDE 10 MG/ML 4 ML VIAL IV SCH (09:00)
[2018-12-13] MEDS: FAMOTIDINE 20 MG TAB PO SCH (09:07)
--- NOTE | 2018-12-13 11:21 | P.PN ---
Subjective Progress Note Date: 12/13/18 This is a 63-year-old female who follows with Dr. Núñez in the office. She has a known history of hypertension, diabetes, chronic kidney disease,coronary artery disease with prior PCI, morbid obesity, sleep apnea, who states she's not been using her CPAP for the past few days because of frequent episodes of vomiting and diarrhea. Since Sunday of last week, patient has been experiencing these symptoms. patient also states that with walking short distances recently she's noted herself to be short of breath.EKG on arrival here showed a normal sinus rhythm with a T wave inversion noted in the lateral leads.x-ray of the abdomen revealed a nonacute abdomen.Blood pressure 164/70,heart rate in the 80s.chest x-ray showed moderate pulmonary vascular congestion and interstitial edema with cardiomegaly, suggesting decompensated congestive heart failure.KUB showed nonobstructive bowel gas pattern.White blood cell count on admission 16.2, 9.5 this morning, hemoglobin 8.8, sodium 139, potassium 3.5, BUN 68 and creatinine 2.5.magnesium 1.7. BNP level 2370.troponin 0.04, 0.07, 0.05.influenza A and B-. At the time of my examination this morning, patient currently hasa Ventimask in place of 40%, she is satting 94%. 12/11/2018 Patient was seen and examined this morning, yesterday evening she went into atrial fibrillation with a rapid ventricular response, she was quite short of breath and hypoxic at that time. This morning she does continue however to be in atrial fibrillation. Overall she is feeling better today.blood pressure 155/80 with a heart rate of 110, 94% on 8 L of oxygen. We will discontinue her IV heparin today and start the patient on 2-1/2 mg of Eliquis twice a day. Decrease Lipitor, discontinue aspirin, discontinue Norvasc and add Cardizem 60 mg one tablet by mouth 3 times a day to the patient's medication regime.White blood cell count 10.1, hemoglobin 8.3, platelet count 240. Sodium 139, potassium 4.0, BUN 72 and creatinine 2.5. 12/12/2018 Patient seen and examined this morning, overall feeling well. Blood pressure 150/70, heart rate in the 80s, 93% on 10 L of high flow. White blood cell count 11.2, hemoglobin 8.0, platelet count 275. Sodium 136, potassium 4.0, BUN 80 and creatinine 2.7. From cardiology's perspective, we'll recommend to discontinue the Zaroxolyn, diuretics as per nephrology. 12/13/2018 Patient seen and examined this morning, overall not feeling well today.nauseated earlier, much more short of breath and swollen today. Her blood pressure this morning 148/75 with a heart rate in the 80s, 92% on 15 L high flow.White blood cell count 11.8, hemoglobin down to 7.3 today, platelet count 259. Sodium 134, potassium 4.4, BUN 95 and creatinine 3.0. Magnesium level 2.0.repeat chest x- ray performed yesterday showed diffuse air space infiltrates which have progressed. Suspicion of small effusions. Findings may reflect pulmonary edema or diffuse pneumonia. Patient had been running temperatures over the past couple of nights, last night afebrile.White blood cell count 11.8 as mentioned. Objective - Vital Signs Vital signs: Vital Signs Temp 97.4 F L 12/13/18 07:44 Pulse 100 12/13/18 08:35 Resp 24 12/13/18 08:00 BP 149/75 12/13/18 07:44 Pulse Ox 94 L 12/13/18 08:22 Intake & Output 12/12/18 12/13/18 12/13/18 18:59 06:59 18:59 Intake Total 240 118 Output Total 350 Balance 240 -350 118 Weight 137.1 kg Intake: Oral 240 118 Output: Urine 350 Other: Voiding Method Bedside Commode Bedside Commode Bedside Commode - Exam PHYSICAL EXAMINATION: GENERAL:63-year-old female in no acute distress at the time of my examination HEENT: Head is atraumatic, normocephalic. Pupils equal, round. Sclera anicteric. Conjunctiva are clear. Mucous membranes of the mouth are moist. Neck is supple. There is elevated jugular venous pressure.no carotid bruit is heard. HEART EXAMINATION: heart S1-S2 a systolic murmur is heard CHEST EXAMINATION:Lungs reveal diminished air entry to bilateral bases with fine rales noted to the bases bilaterally. ABDOMEN: [ Soft, nontender. Bowel sounds are heard. No organomegaly noted]. EXTREMITIES:[ 2+ peripheral pulses with 2+ evidence of peripheral edema and no calf tenderness noted]. NEUROLOGIC [patient is awake, alert and oriented 3.] - Labs CBC & Chem 7: 12/13/18 06:03 12/13/18 06:03 Labs: Abnormal Lab Results - Last 24 Hours (Table) 12/12/18 12/12/18 12/12/18 Range/Units 07:19 11:52 16:51 WBC (3.8-10.6) k/uL RBC (3.80-5.40) m/uL Hgb (11.4-16.0) gm/dL Hct (34.0-46.0) % RDW (11.5-15.5) % Neutrophils # (1.3-7.7) k/uL Lymphocytes # (1.0-4.8) k/uL Sodium (137-145) mmol/L Carbon Dioxide (22-30) mmol/L BUN (7-17) mg/dL Creatinine (0.52-1.04) mg/dL Glucose (74-99) mg/dL POC Glucose (mg/dL) 300 H 369 H (75-99) mg/dL Mycoplasma pneumon IgG 2.64 H (<=0.90) INDEX 12/12/18 12/13/18 12/13/18 Range/Units 20:29 05:58 06:03 WBC 11.8 H (3.8-10.6) k/uL RBC 2.47 L (3.80-5.40) m/uL Hgb 7.3 L (11.4-16.0) gm/dL Hct 22.1 L (34.0-46.0) % RDW 15.8 H (11.5-15.5) % Neutrophils # 10.2 H (1.3-7.7) k/uL Lymphocytes # 0.7 L (1.0-4.8) k/uL Sodium (137-145) mmol/L Carbon Dioxide (22-30) mmol/L BUN (7-17) mg/dL Creatinine (0.52-1.04) mg/dL Glucose (74-99) mg/dL POC Glucose (mg/dL) 401 H 306 H (75-99) mg/dL Mycoplasma pneumon IgG (<=0.90) INDEX 12/13/18 Range/Units 06:03 WBC (3.8-10.6) k/uL RBC (3.80-5.40) m/uL Hgb (11.4-16.0) gm/dL Hct (34.0-46.0) % RDW (11.5-15.5) % Neutrophils # (1.3-7.7) k/uL Lymphocytes # (1.0-4.8) k/uL Sodium 134 L (137-145) mmol/L Carbon Dioxide 21 L (22-30) mmol/L BUN 95 H (7-17) mg/dL Creatinine 3.08 H (0.52-1.04) mg/dL Glucose 232 H (74-99) mg/dL POC Glucose (mg/dL) (75-99) mg/dL Mycoplasma pneumon IgG (<=0.90) INDEX Microbiology - Last 24 Hours (Table) 12/09/18 10:50 Blood Culture - Preliminary Blood No Growth after 72 hours Assessment and Plan Plan: assessment and plan #1 symptoms of vomiting and diarrhea, possible gastroenteritis, no evidence of influenza A or B. #2 diastolic congestive heart failure acute on chronic #3 anemia, hemoglobin 7.3 today. #4acute on chronic kidney disease, creatinine 3.08 today, BUN 95. #5 known history of coronary artery diseasewith prior RCA stenting #6 hypertension #7 hyperlipidemia #8 diabetes #9 sleep apnea #10 abnormality in troponin, could be secondary to hypoxia. #11 paroxysmal atrial fibrillation #11 evidence of bilateral infiltrates with associated fever and elevated white blood cell count suggesting possible pneumonia. On antibiotics. plan Echocardiogram with Doppler study was performed which revealed an ejection fraction of 55-60%. She continues to be in atrial fibrillation, rate under adequate control today. continues to be on IV Lasix, dosing as per nephrology at this time.IV dose of Lasix was decreased to 40 mg IV twice a day today. DNP note has been reviewed, I agree with a documented findings and plan of care. Patient was seen and examined.
--- NOTE | 2018-12-13 11:30 | P.PN ---
Subjective Patient is seen in follow-up for acute kidney injury on chronic kidney disease. Patient has chronic kidney disease stage IV secondary to diabetic kidney disease and cardiorenal syndrome. Baseline creatinine recently has been in the range of 1.8-2.3. Renal function is worse today - creatinine 3.08. Admits to good urine output. She went into A. fib with RVR this admission and is maintained on Lopressor and Cardizem. She is maintained on Lasix 40 mg IV twice daily. Good urine output. Still quite dyspneic. She is currently on BiPAP. Vital signs are stable. General: The patient appeared well nourished and normally developed. HEENT: Head exam is unremarkable. Neck is without jugular venous distension. LUNGS: Breath sounds decreased. HEART: Rate and Rhythm are regular. First and second heart sounds normal. No murmurs, rubs or gallops. ABDOMEN: Abdominal exam reveals normal bowel sounds. Non-tender and non- distended. No evidence of peritonitis. EXTREMITITES: 1+ edema. Objective - Vital Signs Vital signs: Vital Signs Temp 97.4 F L 12/13/18 07:44 Pulse 100 12/13/18 08:35 Resp 24 12/13/18 08:00 BP 149/75 12/13/18 07:44 Pulse Ox 94 L 12/13/18 08:22 Intake & Output 12/12/18 12/13/18 12/13/18 18:59 06:59 18:59 Intake Total 240 118 Output Total 350 Balance 240 -350 118 Weight 137.1 kg Intake: Oral 240 118 Output: Urine 350 Other: Voiding Method Bedside Commode Bedside Commode Bedside Commode - Labs CBC & Chem 7: 12/13/18 06:03 12/13/18 06:03 Labs: Abnormal Lab Results - Last 24 Hours (Table) 12/12/18 12/12/18 12/12/18 Range/Units 07:19 11:52 16:51 WBC (3.8-10.6) k/uL RBC (3.80-5.40) m/uL Hgb (11.4-16.0) gm/dL Hct (34.0-46.0) % RDW (11.5-15.5) % Neutrophils # (1.3-7.7) k/uL Lymphocytes # (1.0-4.8) k/uL Sodium (137-145) mmol/L Carbon Dioxide (22-30) mmol/L BUN (7-17) mg/dL Creatinine (0.52-1.04) mg/dL Glucose (74-99) mg/dL POC Glucose (mg/dL) 300 H 369 H (75-99) mg/dL Mycoplasma pneumon IgG 2.64 H (<=0.90) INDEX 12/12/18 12/13/18 12/13/18 Range/Units 20:29 05:58 06:03 WBC 11.8 H (3.8-10.6) k/uL RBC 2.47 L (3.80-5.40) m/uL Hgb 7.3 L (11.4-16.0) gm/dL Hct 22.1 L (34.0-46.0) % RDW 15.8 H (11.5-15.5) % Neutrophils # 10.2 H (1.3-7.7) k/uL Lymphocytes # 0.7 L (1.0-4.8) k/uL Sodium (137-145) mmol/L Carbon Dioxide (22-30) mmol/L BUN (7-17) mg/dL Creatinine (0.52-1.04) mg/dL Glucose (74-99) mg/dL POC Glucose (mg/dL) 401 H 306 H (75-99) mg/dL Mycoplasma pneumon IgG (<=0.90) INDEX 12/13/18 Range/Units 06:03 WBC (3.8-10.6) k/uL RBC (3.80-5.40) m/uL Hgb (11.4-16.0) gm/dL Hct (34.0-46.0) % RDW (11.5-15.5) % Neutrophils # (1.3-7.7) k/uL Lymphocytes # (1.0-4.8) k/uL Sodium 134 L (137-145) mmol/L Carbon Dioxide 21 L (22-30) mmol/L BUN 95 H (7-17) mg/dL Creatinine 3.08 H (0.52-1.04) mg/dL Glucose 232 H (74-99) mg/dL POC Glucose (mg/dL) (75-99) mg/dL Mycoplasma pneumon IgG (<=0.90) INDEX Microbiology - Last 24 Hours (Table) 12/09/18 10:50 Blood Culture - Preliminary Blood No Growth after 72 hours Assessment and Plan Plan: Assessment: 1. Acute kidney injury mostly prerenal secondary to cardiorenal syndrome and hemodynamic instability. Creatinine 3.08 today. 2. Chronic kidney disease stage IV secondary to diabetic kidney disease and cardiorenal syndrome with baseline creatinine recently the range of 1.9-2.3. 3. Volume overload maintained on diuretics. 4. Diastolic CHF. 5. Insulin-dependent diabetes mellitus. 6. Hypertension with chronic kidney disease. Stable. 7. Acute hypoxic respiratory failure secondary to volume overload. 8. Atrial fibrillation with RVR maintained on Cardizem and Lopressor. 9. Anemia chronic kidney disease. Rule out iron deficiency. Plan: Start Lasix drip at 5 mL an hour. Strict is and os. Low-salt diet. 1500 mL fluid restriction. Daily weights. Check iron studies. Add Aranesp. Check renal ultrasound. Continue to monitor renal function and urine output.
[2018-12-13 11:36] LABS: Glucose,Whole Blood 269 mg/dL (75-99)
[2018-12-13] MEDS ORDERED: SENNOSIDES-DOCUSATE SODIUM 1 EACH TAB PO PRN (12:54)
[2018-12-13] MEDS ORDERED: POLYETHYLENE GLYCOL 3350 17 GM POWD.PACK PO PRN (12:54)
[2018-12-13] MEDS ORDERED: LEVOFLOXACIN 500MG-D5W PMX 500 MG in DEXTROSE/WATER 1 100ML.BAG IVPB SCH (13:00)
--- NOTE | 2018-12-13 13:53 | XR ---
EXAMINATION TYPE: XR chest 1V DATE OF EXAM: 12/13/2018 CLINICAL HISTORY: Difficulty breathing progress study. TECHNIQUE: Single AP portable upright view of the chest is obtained. COMPARISON: Chest x-ray from one day earlier and older studies. FINDINGS: Persistent low lung volumes. Persistent cardiomegaly without transcribed thoracic aorta. P ersistent small left pleural effusion and multifocal bilateral opacities. Persistent interstitial franki ma with Arely B lines in the left lung periphery. Osseous structures are intact. IMPRESSION: Overall stable findings, suspects CHF exacerbation as there is cardiomegaly with multif ocal bilaterally alveolar and interstitial edema and/or infiltrates and small left pleural effusion a ll are redemonstrated.
[2018-12-13] MEDS: FUROSEMIDE 100 MG in SODIUM CHLORIDE 0.9% 90 ML IV SCH ×2 (14:00→23:05)
--- NOTE | 2018-12-13 14:26 | US ---
EXAMINATION TYPE: US kidneys/renal and bladder DATE OF EXAM: 12/13/2018 COMPARISON: US September 22, 2017. CLINICAL HISTORY: binh; diabetic; patient was scanned upright due to D IB EXAM MEASUREMENTS: US exam is technically limited due to large body habitus at WT. 302lbs, HT 5'7 Right Kidney: 14.4 x 8.3 x 6.6 cm Left Kidney: 15.1 x 6.2 x 6.1 cm Post Void Residual Volume: not assessed as Dunaway Catheter is present Right Kidney: No hydronephrosis or masses seen Left Kidney: mid pole obscured by bowel gas Bladder: limitedly seen and indwelling catheter noted at bedside but not seen within bladder and may be due to body habitus There is no evidence for hydronephrosis at this point in time. No nephrolithiasis is seen. No zoraida s are identified on images saved. IMPRESSION: Slightly suboptimal study without hydronephrosis identified bilaterally.
--- NOTE | 2018-12-13 16:11 | P.PN ---
Subjective Progress Note Date: 12/13/18 12/13/2017: Patient seen and examined. Called by nursing staff due to patient having worsening hypoxia. Nephrology has ordered Lasix drip. Patient has been placed on BiPAP and appears comfortable. O2 saturation is 97%. The patient's chest x-rays reviewed and shows continued bilateral pulmonary edema, cardiomegaly. The patient has been afebrile. She states that she is feeling a little bit better. She denies cough, fevers, chills. Objective - Vital Signs Vital signs: Vital Signs Temp 97.6 F 12/13/18 11:30 Pulse 92 12/13/18 16:02 Resp 20 12/13/18 16:02 BP 138/79 12/13/18 11:30 Pulse Ox 95 12/13/18 15:54 Intake & Output 12/12/18 12/13/18 12/13/18 18:59 06:59 18:59 Intake Total 240 118 Output Total 350 Balance 240 -350 118 Weight 137.1 kg Intake: Oral 240 118 Output: Urine 350 Other: Voiding Method Bedside Commode Bedside Commode Bedside Commode - Exam Gen.: Patient is alert and oriented 3, no acute distress, morbidly obese Cardiovascular: Regular rate and rhythm, S1/S2 Lungs: Diminished breath sounds with bilateral crackles Abdomen: Soft nontender nondistended positive bowel sounds Extremities: + Edema - Labs CBC & Chem 7: 12/13/18 06:03 12/13/18 06:03 Labs: Abnormal Lab Results - Last 24 Hours (Table) 12/12/18 12/12/18 12/12/18 Range/Units 07:19 16:51 20:29 WBC (3.8-10.6) k/uL RBC (3.80-5.40) m/uL Hgb (11.4-16.0) gm/dL Hct (34.0-46.0) % RDW (11.5-15.5) % Neutrophils # (1.3-7.7) k/uL Lymphocytes # (1.0-4.8) k/uL Sodium (137-145) mmol/L Carbon Dioxide (22-30) mmol/L BUN (7-17) mg/dL Creatinine (0.52-1.04) mg/dL Glucose (74-99) mg/dL POC Glucose (mg/dL) 369 H 401 H (75-99) mg/dL Mycoplasma pneumon IgG 2.64 H (<=0.90) INDEX 12/13/18 12/13/18 12/13/18 Range/Units 05:58 06:03 06:03 WBC 11.8 H (3.8-10.6) k/uL RBC 2.47 L (3.80-5.40) m/uL Hgb 7.3 L (11.4-16.0) gm/dL Hct 22.1 L (34.0-46.0) % RDW 15.8 H (11.5-15.5) % Neutrophils # 10.2 H (1.3-7.7) k/uL Lymphocytes # 0.7 L (1.0-4.8) k/uL Sodium 134 L (137-145) mmol/L Carbon Dioxide 21 L (22-30) mmol/L BUN 95 H (7-17) mg/dL Creatinine 3.08 H (0.52-1.04) mg/dL Glucose 232 H (74-99) mg/dL POC Glucose (mg/dL) 306 H (75-99) mg/dL Mycoplasma pneumon IgG (<=0.90) INDEX 12/13/18 Range/Units 11:35 WBC (3.8-10.6) k/uL RBC (3.80-5.40) m/uL Hgb (11.4-16.0) gm/dL Hct (34.0-46.0) % RDW (11.5-15.5) % Neutrophils # (1.3-7.7) k/uL Lymphocytes # (1.0-4.8) k/uL Sodium (137-145) mmol/L Carbon Dioxide (22-30) mmol/L BUN (7-17) mg/dL Creatinine (0.52-1.04) mg/dL Glucose (74-99) mg/dL POC Glucose (mg/dL) 269 H (75-99) mg/dL Mycoplasma pneumon IgG (<=0.90) INDEX Microbiology - Last 24 Hours (Table) 12/12/18 13:02 Blood Culture - Preliminary Blood No Growth after 24 hours 12/09/18 10:50 Blood Culture - Preliminary Blood No Growth after 96 hours Assessment and Plan Assessment: Acute hypoxic respiratory failure Acute exacerbation of diastolic congestive heart failure Pulmonary edema NSTEMI type 2 due to supply-demand mismatch Obstructive sleep apnea compliant with CPAP Gastroenteritis Anemia, normochromic, normcytic, chronic History of mild pulmonary hypertension with RVSP 41 mmHg, appears to be improv ing on most recent echo Acute kidney injury on chronic kidney disease stage IV Cardiorenal syndrome Diabetes mellitus type 2 History of coronary artery disease status post PCI Morbid obesity Hypertension Dyslipidemia Mild PCM O2 to maintain saturation greater than or equal to 90%, bipap Duo nebs Pulmicort -1 mg BID I's and O's and daily weights Aggressive Diuresis - agree with nephrology lasix drip Heparin drip per cardiology - changed to Eliquis Incentive spirometry and pulmonary hygiene Cardiology and nephrology recommendations Afrin and Nasal saline for nose bleed Chest x-ray reviewed Zosyn and Levaquin Mucinex
[2018-12-13 16:35] LABS: Glucose,Whole Blood 266 mg/dL (75-99)
[2018-12-13 18:26] LABS: Iron Saturation 5.65 (12.00-45.00)
[2018-12-13 20:44] LABS: Glucose,Whole Blood 228 mg/dL (75-99)
--- NOTE | 2018-12-13 21:11 | PN ---
PROGRESS NOTE DATE OF SERVICE: 12/13/2018 This 63-year-old woman who was admitted with CHF acute exacerbation also had acute respiratory failure. The patient also had abdominal bladder ultrasound recommended by Nephrology which showed slightly suboptimal without any hydronephrosis noted bilaterally. A chest x-ray done today which was reviewed by me showed evidence of bibasilar infiltrate and possible pneumonia also. Patient being closely monitored. The WBC 11.8, hemoglobin 7.7, sodium 134, and iron saturation 5.65, [place] 10[place] [address]. PAST MEDICAL HISTORY: Reviewed. REVIEW OF SYSTEMS: CARDIOVASCULAR: No angina or palpitations. RESPIRATORY: As mentioned earlier. GI no nausea or vomiting. : No dysuria. CENTRAL NERVOUS SYSTEM: No numbness or weakness. CURRENT MEDICATIONS: Reviewed and include: 1. Tylenol 650 q.6h p.r.n. 2. DuoNeb q.i.d. and p.r.n. 3. Eliquis 2.5 mg b.i.d. 4. Lipitor 40 mg q.h.s. 5. Pulmicort 1 mg b.i.d. 6. Cardizem 60 mg t.i.d. 7. Pepcid 20 mg p.o. daily. 8. Mucinex 1200 mg p.o. b.i.d. 9. Apresoline. 10.NovoLog. 11.Levemir 55 units subcu b.i.d. 12.Imdur 60 mg p.o. daily. 13.Levaquin 250 mg p.o. daily. 14.Claritin 10 mg p.o. daily. 15.Toprol XL 70 mg p.o. b.i.d. 16.Lopressor 5 mg p.r.n. 17.Nitrostat p.r.n. 18.Zosyn 3.75 IV b.i.d. 19.Senokot S. PHYSICAL EXAM: Patient is alert, oriented x2. Pulse 80. Blood pressure 120/70, respiration 20, temperature 98 degrees, pulse ox 93% on BiPAP. HEENT: Conjunctivae normal. Oral mucosa moist. Neck is no jugular venous distention. No carotid bruit. No lymph node enlargement. Cardiovascular systems: S1, S2. Respirations: Breath sounds diminished in the bases. Bilateral scattered rhonchi and crackles. ABDOMEN: Soft, obese, nontender. LEGS: Minimal edema. Nervous system: Diffusely weak. LAB INVESTIGATIONS: Lab investigations at this time shows WBC 11.8, hemoglobin 7.3, sodium 132, potassium 4.4, glucose 266 and ferritin is 1086, bilirubin is normal. ASSESSMENT: 1. Congestive heart failure acute exacerbation with acute on chronic diastolic dysfunction ejection fraction 55-60 percent. 2. Bilateral pneumonia possibly gram-negative. 3. Acute hypoxic respiratory failure on BiPAP. 4. Acute kidney injury, possibly secondary to congestive heart failure acute exacerbation. 5. Nausea, vomiting, possible acute gastroenteritis. 6. History of diabetes type 2. 7. History of coronary artery disease. 8. Hypertension. 9. Hyperlipidemia. RECOMMENDATIONS AND DISCUSSION: Recommend to continue current medications, continue with monitoring, management and symptomatic treatment. Otherwise, at this time, recommend to continue broad- spectrum IV antibiotics. The patient is on bronchodilators. The patient is on broad- spectrum IV antibiotics. Patient is also on Lasix drip at 5 mg/hour per Dr. Steinberg. We will continue to monitor the renal functions as well. Prognosis guarded because of multiple complex medical issues. Further recommendations to follow. MMODL / IJN: [id number] / MTDD
[2018-12-13] MEDS: ATORVASTATIN 40 MG TAB PO SCH (22:30)
[2018-12-14] MEDS: IPRATROPIUM-ALBUTEROL 3 ML NEB INHALATION SCH ×6 (01:02→20:08)
--- NOTE | 2018-12-14 02:47 | P.PN ---
Subjective Progress Note Date: 12/14/18 12/14/2018: Patient seen and examined. Patient is on Airvo at 85% FiO2 and 50 L/m low. Patient is still very short of breath and tachypnea. She continues on Lasix drip. Objective - Vital Signs Vital signs: Vital Signs Temp 99.0 F 12/14/18 00:00 Pulse 77 12/14/18 00:00 Resp 30 H 12/14/18 00:00 BP 122/50 12/14/18 00:00 Pulse Ox 97 12/14/18 00:58 Intake & Output 12/13/18 12/13/18 12/14/18 06:59 18:59 06:59 Intake Total 118 45.417 Output Total 350 450 200 Balance -350 -332 -154.583 Weight 137.1 kg Intake: Intake, IV Titration 45.417 Amount Furosemide 100 mg In 45.417 Sodium Chloride 0.9% 90 ml @ 5 MG/HR 5 mls/hr IV .Q20H [facility] Rx#:[id number] Oral 118 Output: Urine 350 450 200 Other: Voiding Method Bedside Commode Bedside Commode Indwelling Catheter - Exam Gen.: Patient is alert and oriented 3, no acute distress, morbidly obese Cardiovascular: Regular rate and rhythm, S1/S2 Lungs: Diminished breath sounds with bilateral crackles Abdomen: Soft nontender nondistended positive bowel sounds Extremities: + Edema - Labs CBC & Chem 7: 12/13/18 06:03 12/13/18 06:03 Labs: Abnormal Lab Results - Last 24 Hours (Table) 12/12/18 12/13/18 12/13/18 Range/Units 07:19 05:58 06:03 WBC 11.8 H (3.8-10.6) k/uL RBC 2.47 L (3.80-5.40) m/uL Hgb 7.3 L (11.4-16.0) gm/dL Hct 22.1 L (34.0-46.0) % RDW 15.8 H (11.5-15.5) % Neutrophils # 10.2 H (1.3-7.7) k/uL Lymphocytes # 0.7 L (1.0-4.8) k/uL Sodium (137-145) mmol/L Carbon Dioxide (22-30) mmol/L BUN (7-17) mg/dL Creatinine (0.52-1.04) mg/dL Glucose (74-99) mg/dL POC Glucose (mg/dL) 306 H (75-99) mg/dL Iron (50-170) ug/dL Iron Saturation (12.00-45.00) Ferritin (10.0-291.0) ng/mL Mycoplasma pneumon IgG 2.64 H (<=0.90) INDEX 12/13/18 12/13/18 12/13/18 Range/Units 06:03 06:03 11:35 WBC (3.8-10.6) k/uL RBC (3.80-5.40) m/uL Hgb (11.4-16.0) gm/dL Hct (34.0-46.0) % RDW (11.5-15.5) % Neutrophils # (1.3-7.7) k/uL Lymphocytes # (1.0-4.8) k/uL Sodium 134 L (137-145) mmol/L Carbon Dioxide 21 L (22-30) mmol/L BUN 95 H (7-17) mg/dL Creatinine 3.08 H (0.52-1.04) mg/dL Glucose 232 H (74-99) mg/dL POC Glucose (mg/dL) 269 H (75-99) mg/dL Iron 13 L (50-170) ug/dL Iron Saturation 5.65 L (12.00-45.00) Ferritin 1086.0 H (10.0-291.0) ng/mL Mycoplasma pneumon IgG (<=0.90) INDEX 12/13/18 12/13/18 Range/Units 16:34 20:43 WBC (3.8-10.6) k/uL RBC (3.80-5.40) m/uL Hgb (11.4-16.0) gm/dL Hct (34.0-46.0) % RDW (11.5-15.5) % Neutrophils # (1.3-7.7) k/uL Lymphocytes # (1.0-4.8) k/uL Sodium (137-145) mmol/L Carbon Dioxide (22-30) mmol/L BUN (7-17) mg/dL Creatinine (0.52-1.04) mg/dL Glucose (74-99) mg/dL POC Glucose (mg/dL) 266 H 228 H (75-99) mg/dL Iron (50-170) ug/dL Iron Saturation (12.00-45.00) Ferritin (10.0-291.0) ng/mL Mycoplasma pneumon IgG (<=0.90) INDEX Microbiology - Last 24 Hours (Table) 12/13/18 12:30 Urine Culture - Preliminary Urine,Catheterized 12/12/18 13:02 Blood Culture - Preliminary Blood No Growth after 24 hours 12/09/18 10:50 Blood Culture - Preliminary Blood No Growth after 96 hours Assessment and Plan Assessment: Acute hypoxic respiratory failure Acute exacerbation of diastolic congestive heart failure Pulmonary edema NSTEMI type 2 due to supply-demand mismatch Obstructive sleep apnea compliant with CPAP Gastroenteritis Anemia, normochromic, normcytic, chronic History of mild pulmonary hypertension with RVSP 41 mmHg, appears to be improving on most recent echo Acute kidney injury on chronic kidney disease stage IV Cardiorenal syndrome Diabetes mellitus type 2 History of coronary artery disease status post PCI Morbid obesity Hypertension Dyslipidemia Mild PCM O2 to maintain saturation greater than or equal to 90%, bipap Duo nebs Pulmicort -1 mg BID I's and O's and daily weights Aggressive Diuresis - agree with nephrology lasix ip Elijose Incentive spirometry and pulmonary hygiene Cardiology and nephrology recommendations Afrin and Nasal saline for nose bleed Zosyn and Levaquin Mucinex Repeat CXR today
[2018-12-14 05:59] LABS: Glucose,Whole Blood 207 mg/dL (75-99)
--- NOTE | 2018-12-14 06:09 | XR ---
EXAMINATION TYPE: XR chest 1V portable DATE OF EXAM: 12/14/2018 HISTORY: chf, hypoxia. REFERENCE: Previous study dated 12/13/2018. FINDINGS: There is worsening opacity involving both sides of the chest. The heart is enlarged. I susp ect small effusions. IMPRESSION: WORSENING CHANGES OF CONGESTIVE HEART FAILURE.
[2018-12-14] MEDS: INSULIN ASPART (NovoLOG) 100 UNIT/ML VIAL SQ SCH ×4 (06:39→21:44)
[2018-12-14 07:18] LABS: Basophils # (A) 0.1 k/uL (0-0.2); Basophils % (A) 0 %; Eosinophils # (A) 0.2 k/uL (0-0.7); Eosinophils % (A) 1 %; HGB 7.1 gm/dL (11.4-16.0); Lymphocytes # (A) 0.7 k/uL (1.0-4.8); Lymphocytes % (A) 5 %; MCH 28.9 pg (25.0-35.0); MCHC 32.4 g/dL (31.0-37.0); MCV 89.2 fL (80.0-100.0); Mean Platelet Volume 7.2; Monocytes # (A) 0.7 k/uL (0-1.0); Monocytes % (A) 5 %; Neutrophils # (A) 12.3 k/uL (1.3-7.7); Neutrophils % (A) 87 %; Platelet Count 309 k/uL (150-450); Poikilocytosis Slight; RBC 2.47 m/uL (3.80-5.40); RDW 15.6 % (11.5-15.5); WBC 14.1 k/uL (3.8-10.6)
[2018-12-14 07:30] LABS: Calcium 8.7 mg/dL (8.4-10.2); Potassium 4.6 mmol/L (3.5-5.1)
[2018-12-14] MEDS: BUDESONIDE 1 MG/2 ML NEBU INHALATION SCH ×2 (09:36→20:08)
[2018-12-14] MEDS: hydrALAZINE HCL 50 MG TAB PO SCH ×3 (10:05→17:18)
[2018-12-14] MEDS: guaiFENesin 600 MG TABLET.ER PO SCH ×2 (10:05→21:42)
[2018-12-14] MEDS: PIPERACILLIN-TAZOBACTAM 3.375 GM in SODIUM CHLORIDE 0.9% 100 ML IVPB SCH ×2 (10:06→21:41)
[2018-12-14] MEDS: DILTIAZEM ORAL 60 MG TAB PO SCH ×3 (10:06→21:42)
[2018-12-14] MEDS: ISOSORBIDE MONONITRATE ER 60 MG TAB.ER.24H PO SCH (10:06)
[2018-12-14] MEDS: FAMOTIDINE 20 MG TAB PO SCH (10:06)
[2018-12-14] MEDS: APIXABAN 2.5 MG TABLET PO SCH ×2 (10:06→21:42)
[2018-12-14] MEDS: METOPROLOL SUCCINATE (ER) 50 MG TAB.ER.24H PO SCH ×2 (10:06→21:42)
[2018-12-14] MEDS: INSULIN DETEMIR (LEVEMIR) 100 UNIT/ML SYR SQ SCH ×2 (10:06→21:44)
[2018-12-14] MEDS: OXYMETAZOLINE 0.05% NASL SPRAY 1 SPRAY BOTTLE NASAL SCH ×2 (10:07→21:45)
--- NOTE | 2018-12-14 11:23 | P.PN ---
Subjective Progress Note Date: 12/14/18 This is a 63-year-old female who follows with Dr. Núñez in the office. She has a known history of hypertension, diabetes, chronic kidney disease,coronary artery disease with prior PCI, morbid obesity, sleep apnea, who states she's not been using her CPAP for the past few days because of frequent episodes of vomiting and diarrhea. Since Sunday of last week, patient has been experiencing these symptoms. patient also states that with walking short distances recently she's noted herself to be short of breath.EKG on arrival here showed a normal sinus rhythm with a T wave inversion noted in the lateral leads.x-ray of the abdomen revealed a nonacute abdomen.Blood pressure 164/70,heart rate in the 80s.chest x-ray showed moderate pulmonary vascular congestion and interstitial edema with cardiomegaly, suggesting decompensated congestive heart failure.KUB showed nonobstructive bowel gas pattern.White blood cell count on admission 16.2, 9.5 this morning, hemoglobin 8.8, sodium 139, potassium 3.5, BUN 68 and creatinine 2.5.magnesium 1.7. BNP level 2370.troponin 0.04, 0.07, 0.05.influenza A and B-. At the time of my examination this morning, patient currently hasa Ventimask in place of 40%, she is satting 94%. 12/11/2018 Patient was seen and examined this morning, yesterday evening she went into atrial fibrillation with a rapid ventricular response, she was quite short of breath and hypoxic at that time. This morning she does continue however to be in atrial fibrillation. Overall she is feeling better today.blood pressure 155/80 with a heart rate of 110, 94% on 8 L of oxygen. We will discontinue her IV heparin today and start the patient on 2-1/2 mg of Eliquis twice a day. Decrease Lipitor, discontinue aspirin, discontinue Norvasc and add Cardizem 60 mg one tablet by mouth 3 times a day to the patient's medication regime.White blood cell count 10.1, hemoglobin 8.3, platelet count 240. Sodium 139, potassium 4.0, BUN 72 and creatinine 2.5. 12/12/2018 Patient seen and examined this morning, overall feeling well. Blood pressure 150/70, heart rate in the 80s, 93% on 10 L of high flow. White blood cell count 11.2, hemoglobin 8.0, platelet count 275. Sodium 136, potassium 4.0, BUN 80 and creatinine 2.7. From cardiology's perspective, we'll recommend to discontinue the Zaroxolyn, diuretics as per nephrology. 12/13/2018 Patient seen and examined this morning, overall not feeling well today.nauseated earlier, much more short of breath and swollen today. Her blood pressure this morning 148/75 with a heart rate in the 80s, 92% on 15 L high flow.White blood cell count 11.8, hemoglobin down to 7.3 today, platelet count 259. Sodium 134, potassium 4.4, BUN 95 and creatinine 3.0. Magnesium level 2.0.repeat chest x- ray performed yesterday showed diffuse air space infiltrates which have progressed. Suspicion of small effusions. Findings may reflect pulmonary edema or diffuse pneumonia. Patient had been running temperatures over the past couple of nights, last night afebrile.White blood cell count 11.8 as mentioned. 12/14/2018 Patient was seen and examined this morning, states she did not sleep well through the night last night. Continues to feel short of breath. She was initiated on a Lasix drip, her creatinine today is 3.7. Blood pressure 162/70 with a heart rate in the 80s, 94% on BiPAP. White blood cell count 14.1, hemoglobin 7.1, platelet count 309. Sodium 134, potassium 4.6, BUN 108 and creatinine 3.7. Objective - Vital Signs Vital signs: Vital Signs Temp 97.9 F 12/14/18 08:00 Pulse 100 12/14/18 09:52 Resp 25 H 12/14/18 08:00 BP 163/77 12/14/18 08:00 Pulse Ox 94 L 12/14/18 08:00 Intake & Output 12/13/18 12/14/18 12/14/18 18:59 06:59 18:59 Intake Total 118 45.417 Output Total 450 450 Balance -332 -404.583 Weight 138.4 kg Intake: Intake, IV Titration 45.417 Amount Furosemide 100 mg In 45.417 Sodium Chloride 0.9% 90 ml @ 5 MG/HR 5 mls/hr IV .Q20H [facility] Rx#:[id number] Oral 118 Output: Urine 450 450 Other: Voiding Method Bedside Commode Indwelling Catheter Indwelling Catheter - Exam PHYSICAL EXAMINATION: GENERAL:63-year-old female in no acute distress at the time of my examination HEENT: Head is atraumatic, normocephalic. Pupils equal, round. Sclera anicteric. Conjunctiva are clear. Mucous membranes of the mouth are moist. Neck is supple. There is elevated jugular venous pressure.no carotid bruit is heard. HEART EXAMINATION: heart S1-S2 a systolic murmur is heard CHEST EXAMINATION:Lungs reveal diminished air entry to bilateral bases with fine rales noted to the bases bilaterally. ABDOMEN: [ Soft, nontender. Bowel sounds are heard. No organomegaly noted]. EXTREMITIES:[ 2+ peripheral pulses with 2+ evidence of peripheral edema and no calf tenderness noted]. NEUROLOGIC [patient is awake, alert and oriented 3.] - Labs CBC & Chem 7: 12/14/18 06:51 12/14/18 06:51 Labs: Abnormal Lab Results - Last 24 Hours (Table) 12/13/18 12/13/18 12/13/18 Range/Units 06:03 11:35 16:34 WBC (3.8-10.6) k/uL RBC (3.80-5.40) m/uL Hgb (11.4-16.0) gm/dL Hct (34.0-46.0) % RDW (11.5-15.5) % Neutrophils # (1.3-7.7) k/uL Lymphocytes # (1.0-4.8) k/uL Sodium (137-145) mmol/L BUN (7-17) mg/dL Creatinine (0.52-1.04) mg/dL Glucose (74-99) mg/dL POC Glucose (mg/dL) 269 H 266 H (75-99) mg/dL Iron 13 L (50-170) ug/dL Iron Saturation 5.65 L (12.00-45.00) Ferritin 1086.0 H (10.0-291.0) ng/mL 12/13/18 12/14/18 12/14/18 Range/Units 20:43 05:58 06:51 WBC 14.1 H (3.8-10.6) k/uL RBC 2.47 L (3.80-5.40) m/uL Hgb 7.1 L (11.4-16.0) gm/dL Hct 22.0 L (34.0-46.0) % RDW 15.6 H (11.5-15.5) % Neutrophils # 12.3 H (1.3-7.7) k/uL Lymphocytes # 0.7 L (1.0-4.8) k/uL Sodium (137-145) mmol/L BUN (7-17) mg/dL Creatinine (0.52-1.04) mg/dL Glucose (74-99) mg/dL POC Glucose (mg/dL) 228 H 207 H (75-99) mg/dL Iron (50-170) ug/dL Iron Saturation (12.00-45.00) Ferritin (10.0-291.0) ng/mL 12/14/18 Range/Units 06:51 WBC (3.8-10.6) k/uL RBC (3.80-5.40) m/uL Hgb (11.4-16.0) gm/dL Hct (34.0-46.0) % RDW (11.5-15.5) % Neutrophils # (1.3-7.7) k/uL Lymphocytes # (1.0-4.8) k/uL Sodium 134 L (137-145) mmol/L BUN 108 H* (7-17) mg/dL Creatinine 3.70 H (0.52-1.04) mg/dL Glucose 169 H (74-99) mg/dL POC Glucose (mg/dL) (75-99) mg/dL Iron (50-170) ug/dL Iron Saturation (12.00-45.00) Ferritin (10.0-291.0) ng/mL Microbiology - Last 24 Hours (Table) 12/13/18 12:30 Urine Culture - Preliminary Urine,Catheterized 12/12/18 13:02 Blood Culture - Preliminary Blood No Growth after 24 hours 12/09/18 10:50 Blood Culture - Preliminary Blood No Growth after 96 hours Assessment and Plan Plan: assessment and plan #1 symptoms of vomiting and diarrhea, possible gastroenteritis, no evidence of influenza A or B. #2 diastolic congestive heart failure acute on chronic #3 anemia, hemoglobin 7.3 today. #4acute on chronic kidney disease, creatinine 3.08 today, BUN 95. #5 known history of coronary artery diseasewith prior RCA stenting #6 hypertension #7 hyperlipidemia #8 diabetes #9 sleep apnea #10 abnormality in troponin, could be secondary to hypoxia. #11 paroxysmal atrial fibrillation #11 evidence of bilateral infiltrates with associated fever and elevated white blood cell count suggesting possible pneumonia. On antibiotics. plan Echocardiogram with Doppler study was performed which revealed an ejection fraction of 55-60%. She continues to be in atrial fibrillation, rate under adequate control today. continues to be on IV Lasix drip, dosing as per nephrology at this time. We will follow this patient along with you now on an as-needed basis only, please don't hesitate to call with any questions. DNP note has been reviewed, I agree with a documented findings and plan of care. Patient was seen and examined.
[2018-12-14 11:44] LABS: Glucose,Whole Blood 172 mg/dL (75-99)
[2018-12-14] MEDS: LEVOFLOXACIN 250 MG TAB PO SCH (13:23)
[2018-12-14] MEDS: LORATADINE 10 MG TAB PO SCH (13:24)
--- NOTE | 2018-12-14 15:08 | P.PN ---
Subjective Progress Note Date: 12/14/18 Seen and examined for the follow-up of acute kidney injury. Still on BiPAP. And Lasix drip. No nausea vomiting diarrhea. Objective - Vital Signs Vital signs: Vital Signs Temp 97.4 F L 12/14/18 12:40 Pulse 82 12/14/18 12:40 Resp 23 12/14/18 12:40 BP 134/70 12/14/18 12:40 Pulse Ox 98 12/14/18 12:40 Intake & Output 12/13/18 12/14/18 12/14/18 18:59 06:59 18:59 Intake Total 118 45.417 100 Output Total 450 450 Balance -332 -404.583 100 Weight 138.4 kg Intake: Intake, IV Titration 45.417 100 Amount Furosemide 100 mg In 45.417 Sodium Chloride 0.9% 90 ml @ 5 MG/HR 5 mls/hr IV .Q20H [facility] Rx#:[id number] Piperacillin-Tazobactam 3 100 .375 gm In Sodium Chloride 0.9% 100 ml @ 25 mls/hr IVPB Q12HR [facility] Rx #:[id number] Oral 118 Output: Urine 450 450 Other: Voiding Method Bedside Commode Indwelling Catheter Indwelling Catheter # Bowel Movements 1 - Exam No acute distress on BiPAP S1-S2 heard Decreased breath sounds Dunaway catheter Lower extremity edema - Labs CBC & Chem 7: 12/14/18 06:51 12/14/18 06:51 Labs: Abnormal Lab Results - Last 24 Hours (Table) 12/13/18 12/13/18 12/13/18 Range/Units 06:03 16:34 20:43 WBC (3.8-10.6) k/uL RBC (3.80-5.40) m/uL Hgb (11.4-16.0) gm/dL Hct (34.0-46.0) % RDW (11.5-15.5) % Neutrophils # (1.3-7.7) k/uL Lymphocytes # (1.0-4.8) k/uL Sodium (137-145) mmol/L BUN (7-17) mg/dL Creatinine (0.52-1.04) mg/dL Glucose (74-99) mg/dL POC Glucose (mg/dL) 266 H 228 H (75-99) mg/dL Iron 13 L (50-170) ug/dL Iron Saturation 5.65 L (12.00-45.00) Ferritin 1086.0 H (10.0-291.0) ng/mL 12/14/18 12/14/18 12/14/18 Range/Units 05:58 06:51 06:51 WBC 14.1 H (3.8-10.6) k/uL RBC 2.47 L (3.80-5.40) m/uL Hgb 7.1 L (11.4-16.0) gm/dL Hct 22.0 L (34.0-46.0) % RDW 15.6 H (11.5-15.5) % Neutrophils # 12.3 H (1.3-7.7) k/uL Lymphocytes # 0.7 L (1.0-4.8) k/uL Sodium 134 L (137-145) mmol/L BUN 108 H* (7-17) mg/dL Creatinine 3.70 H (0.52-1.04) mg/dL Glucose 169 H (74-99) mg/dL POC Glucose (mg/dL) 207 H (75-99) mg/dL Iron (50-170) ug/dL Iron Saturation (12.00-45.00) Ferritin (10.0-291.0) ng/mL 12/14/18 Range/Units 11:22 WBC (3.8-10.6) k/uL RBC (3.80-5.40) m/uL Hgb (11.4-16.0) gm/dL Hct (34.0-46.0) % RDW (11.5-15.5) % Neutrophils # (1.3-7.7) k/uL Lymphocytes # (1.0-4.8) k/uL Sodium (137-145) mmol/L BUN (7-17) mg/dL Creatinine (0.52-1.04) mg/dL Glucose (74-99) mg/dL POC Glucose (mg/dL) 172 H (75-99) mg/dL Iron (50-170) ug/dL Iron Saturation (12.00-45.00) Ferritin (10.0-291.0) ng/mL Microbiology - Last 24 Hours (Table) 12/09/18 10:50 Blood Culture - Preliminary Blood No Growth after 120 hours 12/13/18 12:30 Urine Culture - Preliminary Urine,Catheterized 12/12/18 13:02 Blood Culture - Preliminary Blood No Growth after 24 hours Assessment and Plan Assessment: #1 acute kidney injury secondary to cardiorenal syndrome and hemodynamic instability from atrial fibrillation. Creatinine creeping. #2 CK D4 secondary to type to cardiorenal syndrome with a baseline creatinine of 1.9-2.3 MG per DL. #3 diastolic CHF #4 hypertension with chronic kidney disease #5 acute respiratory failure on BiPAP #6 anemia rule out GI bleed. Plan: #1 still has pulmonary congestion and volume overload. Increase Lasix to 10 mg an hour. #2 rule out other causes for increased her BUNs. With low hemoglobin rule out GI bleed. #3 daily weights. #4 check urine analysis now and labs in the morning.
[2018-12-14 16:29] LABS: Glucose,Whole Blood 147 mg/dL (75-99)
[2018-12-14] MEDS: ONDANSETRON 4 MG/2 ML VIAL IVP PRN (17:24)
[2018-12-14] MEDS: FUROSEMIDE 100 MG in SODIUM CHLORIDE 0.9% 90 ML IV SCH (18:35)
[2018-12-14 20:27] LABS: Glucose,Whole Blood 131 mg/dL (75-99)
[2018-12-14 21:06] LABS: Appearance,Urine Clear (Clear); Bacteria,Urine Few /hpf; Bilirubin,Urine Negative (Negative); Blood,Urine Trace (Negative); Color,Urine Yellow; Glucose,Urine (UA) Negative (Negative); Ketones,Urine Negative (Negative); Leukocyte Esterase,Urine Negative (Negative); Mucus,Urine Rare /hpf; Nitrite,Urine Negative (Negative); Protein,Urine 1+ (Negative); RBC,Urine 4 /hpf (0-5); Specific Gravity,Urine 1.012 (1.001-1.035); Squamous Epithelial Cell,Urine <1 /hpf (0-4); Urobilinogen,Urine <2.0 mg/dL (<2.0); WBC,Urine 4 /hpf (0-5)
[2018-12-14] MEDS: ATORVASTATIN 40 MG TAB PO SCH (21:42)
--- NOTE | 2018-12-14 23:42 | PN ---
PROGRESS NOTE . DATE OF SERVICE: 12/14/2018 This 63-year-old woman who was admitted with CHF acute exacerbation with acute on chronic diastolic dysfunction, is being closely monitored. No chest pain. No palpitations. No fever. EXAM: Alert and oriented times three. Pulse is 88, blood pressure 143/66, respirations 20, temperature 97.8, pulse ox 91 percent on high-flow nasal cannula. HEENT: Conjunctivae normal. Neck is no jugular venous distention. CARDIOVASCULAR: S1, S2. Respirations: Breath sounds diminished in the bases. Bilateral scattered rhonchi and crackles. Abdomen is soft, nontender. Legs are no edema. No swelling. LABS: WBC 14.2, hemoglobin 7.1, sodium 130, potassium 4.6, glucose 172. ASSESSMENT: 1. Congestive heart failure acute exacerbation acute on chronic diastolic dysfunction, ejection fraction 50 to 60%. 2. Bilateral pneumonia possibly gram-negative. 3. Acute hypoxic respiratory failure on BiPAP. 4. Acute kidney injury, possibly secondary to congestive heart failure, acute exacerbation. 5. Nausea, vomiting, possible acute gastroenteritis. 6. History of diabetes type 2. 7. History of coronary artery disease. 8. Hypertension. 9. Hyperlipidemia. 10.Possibly cardiorenal syndrome. RECOMMENDATIONS AND DISCUSSION: Recommend to continue current medications, monitoring and symptomatic treatment. Continue to watch fluid and electrolytes balance closely. The creatinine is still elevated. We will continue to monitor. The patient also seen by the Nephrology today and we will continue to monitor. Guarded prognosis. Further recommendations to follow. MMKRISHAN / HELADIO: [id number] /
[2018-12-15] MEDS: IPRATROPIUM-ALBUTEROL 3 ML NEB INHALATION SCH ×6 (00:08→20:22)
[2018-12-15] MEDS: INSULIN ASPART (NovoLOG) 100 UNIT/ML VIAL SQ SCH ×4 (05:58→21:09)
[2018-12-15 05:59] LABS: Glucose,Whole Blood 72 mg/dL (75-99)
[2018-12-15] MEDS: BUDESONIDE 1 MG/2 ML NEBU INHALATION SCH ×2 (09:20→20:22)
[2018-12-15 09:36] LABS: Basophils % (A) 0 %; Eosinophils # (A) 0.2 k/uL (0-0.7); Eosinophils % (A) 1 %; HCT 22.7 % (34.0-46.0); HGB 7.5 gm/dL (11.4-16.0); Hypochromasia Slight; Lymphocytes # (A) 0.4 k/uL (1.0-4.8); Lymphocytes % (A) 3 %; MCV 90.7 fL (80.0-100.0); Mean Platelet Volume 7.4; Monocytes # (A) 0.6 k/uL (0-1.0); Monocytes % (A) 4 %; Neutrophils # (A) 12.3 k/uL (1.3-7.7); Neutrophils % (A) 90 %; Platelet Count 336 k/uL (150-450); Poikilocytosis Slight; RDW 15.9 % (11.5-15.5); WBC 13.6 k/uL (3.8-10.6)
[2018-12-15] MEDS: PIPERACILLIN-TAZOBACTAM 3.375 GM in SODIUM CHLORIDE 0.9% 100 ML IVPB SCH ×2 (09:36→21:07)
[2018-12-15] MEDS: guaiFENesin 600 MG TABLET.ER PO SCH ×2 (09:36→21:08)
[2018-12-15] MEDS: hydrALAZINE HCL 50 MG TAB PO SCH ×3 (09:36→17:11)
[2018-12-15] MEDS: APIXABAN 2.5 MG TABLET PO SCH ×2 (09:36→21:09)
[2018-12-15] MEDS: LORATADINE 10 MG TAB PO SCH (09:36)
[2018-12-15] MEDS: ISOSORBIDE MONONITRATE ER 60 MG TAB.ER.24H PO SCH (09:36)
[2018-12-15] MEDS: METOPROLOL SUCCINATE (ER) 50 MG TAB.ER.24H PO SCH ×2 (09:36→21:08)
[2018-12-15] MEDS: DILTIAZEM ORAL 60 MG TAB PO SCH ×3 (09:36→21:07)
[2018-12-15] MEDS: OXYMETAZOLINE 0.05% NASL SPRAY 1 SPRAY BOTTLE NASAL SCH ×2 (09:37→21:07)
[2018-12-15] MEDS: FAMOTIDINE 20 MG TAB PO SCH (09:37)
[2018-12-15 10:06] LABS: Calcium 8.4 mg/dL (8.4-10.2)
[2018-12-15] MEDS: INSULIN DETEMIR (LEVEMIR) 100 UNIT/ML SYR SQ SCH ×2 (10:53→21:10)
[2018-12-15 11:40] LABS: Glucose,Whole Blood 156 mg/dL (75-99)
--- NOTE | 2018-12-15 12:33 | P.PN ---
Subjective Progress Note Date: 12/15/18 Seen and examined for the follow-up of acute kidney injury. Still on BiPAP and Lasix drip. No nausea vomiting diarrhea. Breathing better and edema improving Objective - Vital Signs Vital signs: Vital Signs Temp 97.4 F L 12/15/18 08:25 Pulse 79 12/15/18 11:57 Resp 20 12/15/18 08:25 BP 135/64 12/15/18 08:25 Pulse Ox 93 L 12/15/18 08:25 Intake & Output 12/14/18 12/15/18 12/15/18 18:59 06:59 18:59 Intake Total 554.000 118 Output Total 2175 Balance 554.000 -2175 118 Weight 137.3 kg Intake: Intake, IV Titration 200.000 Amount Furosemide 100 mg In 100.000 Sodium Chloride 0.9% 90 ml @ 10 MG/HR 10 mls/hr IV .Q10H ELISABETH Rx#: [id number] Piperacillin-Tazobactam 3 100 .375 gm In Sodium Chloride 0.9% 100 ml @ 25 mls/hr IVPB Q12HR ELISAB[facility] Rx #:[id number] Oral 354 118 Output: Urine 2175 Other: Voiding Method Indwelling Catheter Indwelling Catheter Indwelling Catheter # Bowel Movements 2 1 - Exam No acute distress on BiPAP S1-S2 heard Decreased breath sounds Dunaway catheter Lower extremity edema - Labs CBC & Chem 7: 12/15/18 09:13 12/15/18 09:13 Labs: Abnormal Lab Results - Last 24 Hours (Table) 12/14/18 12/14/18 12/14/18 Range/Units 16:19 19:00 20:25 WBC (3.8-10.6) k/uL RBC (3.80-5.40) m/uL Hgb (11.4-16.0) gm/dL Hct (34.0-46.0) % RDW (11.5-15.5) % Neutrophils # (1.3-7.7) k/uL Lymphocytes # (1.0-4.8) k/uL Sodium (137-145) mmol/L BUN (7-17) mg/dL Creatinine (0.52-1.04) mg/dL Glucose (74-99) mg/dL POC Glucose (mg/dL) 147 H 131 H (75-99) mg/dL Urine Protein 1+ H (Negative) Urine Blood Trace H (Negative) Urine Bacteria Few H (None) /hpf Urine Mucus Rare H (None) /hpf 12/15/18 12/15/18 12/15/18 Range/Units 05:54 09:13 09:13 WBC 13.6 H (3.8-10.6) k/uL RBC 2.50 L (3.80-5.40) m/uL Hgb 7.5 L (11.4-16.0) gm/dL Hct 22.7 L (34.0-46.0) % RDW 15.9 H (11.5-15.5) % Neutrophils # 12.3 H (1.3-7.7) k/uL Lymphocytes # 0.4 L (1.0-4.8) k/uL Sodium 135 L (137-145) mmol/L BUN 109 H* (7-17) mg/dL Creatinine 3.60 H (0.52-1.04) mg/dL Glucose 134 H (74-99) mg/dL POC Glucose (mg/dL) 72 L (75-99) mg/dL Urine Protein (Negative) Urine Blood (Negative) Urine Bacteria (None) /hpf Urine Mucus (None) /hpf 12/15/18 Range/Units 11:30 WBC (3.8-10.6) k/uL RBC (3.80-5.40) m/uL Hgb (11.4-16.0) gm/dL Hct (34.0-46.0) % RDW (11.5-15.5) % Neutrophils # (1.3-7.7) k/uL Lymphocytes # (1.0-4.8) k/uL Sodium (137-145) mmol/L BUN (7-17) mg/dL Creatinine (0.52-1.04) mg/dL Glucose (74-99) mg/dL POC Glucose (mg/dL) 156 H (75-99) mg/dL Urine Protein (Negative) Urine Blood (Negative) Urine Bacteria (None) /hpf Urine Mucus (None) /hpf Microbiology - Last 24 Hours (Table) 12/13/18 12:30 Urine Culture - Final Urine,Catheterized 12/12/18 13:02 Blood Culture - Preliminary Blood No Growth after 48 hours 12/09/18 10:50 Blood Culture - Preliminary Blood No Growth after 120 hours Assessment and Plan Assessment: #1 acute kidney injury secondary to cardiorenal syndrome and hemodynamic instability from atrial fibrillation. Creatinine stable. #2 CK D4 secondary to type to cardiorenal syndrome with a baseline creatinine of 1.9-2.3 MG per DL. #3 diastolic CHF #4 hypertension with chronic kidney disease #5 acute respiratory failure on BiPAP #6 anemia rule out GI bleed. Plan: #1 continue with Lasix drip. Add metolazone 5 mg daily for additional benefit. #2 rule out other causes for increased her BUNs. With low hemoglobin rule out GI bleed. #3 daily weights. #4 avoid nephrotoxic agents and hypotensive episodes.
[2018-12-15] MEDS: LEVOFLOXACIN 250 MG TAB PO SCH (12:40)
[2018-12-15] MEDS: METOLAZONE 5 MG TAB PO SCH (15:19)
[2018-12-15 16:54] LABS: Glucose,Whole Blood 223 mg/dL (75-99)
--- NOTE | 2018-12-15 20:04 | PN ---
PROGRESS NOTE December 15, 2018. She continues to remain on . She is quite short of breath and is on a Lasix drip, but is starting to diurese quite well. She is morbidly obese with a blood pressure 138/66, respiratory rate of 20, and pulse is 70, temperature 97.8, O2 saturation 92%. HEENT reveals in place. Chest reveals decreased breath sounds. Occasional crackles. Cardiovascular system reveals S1, S2. Abdomen is soft. There is 1+ to 2+ pedal edema. Sodium is 135, potassium 4, chloride 99, bicarb 23, BUN 109, creatinine of 3.6. White count of 13.6, hemoglobin of 7.5. IMPRESSION: 1. Obstructive sleep apnea with obesity hypoventilation syndrome is likely that has been relatively untreated. 2. Diastolic congestive heart failure. 3. Pulmonary edema. 4. Pulmonary hypertension, which may be due to obstructive sleep apnea. Continue current medications. Increase activity level. Her prognosis at this time is fair. She was counseled regarding her condition. MMODL / IJN: [id number] /
[2018-12-15 20:23] LABS: Glucose,Whole Blood 180 mg/dL (75-99)
[2018-12-15] MEDS: ATORVASTATIN 40 MG TAB PO SCH (21:08)
--- NOTE | 2018-12-15 23:43 | PN ---
PROGRESS NOTE DATE OF SERVICE: 12/15/2018. HISTORY: This 63-year-old woman who was admitted with CHF acute exacerbation also had features of pneumonia. Patient is closely monitored, followed by Pulmonary as well as Cardiology. No chest pain. No palpitations. No fever. EXAM: Alert and oriented x3. Pulse is 72, blood pressure is 130/80, respirations 20, temperature 97.8, pulse ox 98% on high-flow. HEENT: Conjunctivae normal. Oral mucosa moist. NECK: No JVD. CARDIOVASCULAR: S1 and S2 muffled. LUNGS: Breath sounds diminished at the bases. Bilateral scattered rhonchi and crackles. ABDOMEN: Soft, nontender. EXTREMITIES: Legs no edema. No cyanosis. NERVOUS SYSTEM: No focal deficits. LABS: Creatinine is 3.6, which is worsened. WBC 13.2, hemoglobin 7.5. ASSESSMENT: 1. CHF exacerbation with acute on chronic diastolic dysfunction, ejection fraction 50% to 60%. 2. Bilateral pneumonia, possibly gram-negative. 3. Acute hypoxic respiratory failure on BiPAP. 4. Acute kidney injury, possibly secondary to congestive heart failure acute exacerbation with possible cardiorenal syndrome. 5. Nausea, vomiting, possible acute gastroenteritis. 6. History of diabetes mellitus. 7. History of CAD. 8. Hypertension. 9. Hyperlipidemia. RECOMMENDATIONS: Recommend to continue current medications, symptomatic treatment. I recommend bronchodilators. We will monitor the patient closely with Cardiology as well as Nephrology. Guarded prognosis. Further recommendations to follow. MMODL / KEENANN: [id number] /
[2018-12-16] MEDS: FUROSEMIDE 100 MG in SODIUM CHLORIDE 0.9% 90 ML IV SCH ×5 (00:04→22:30)
[2018-12-16] MEDS: IPRATROPIUM-ALBUTEROL 3 ML NEB INHALATION SCH ×7 (00:10→23:48)
[2018-12-16 06:08] LABS: Glucose,Whole Blood 84 mg/dL (75-99)
[2018-12-16] MEDS: PANTOPRAZOLE 40 MG TABLET PO SCH (06:09)
[2018-12-16] MEDS: INSULIN ASPART (NovoLOG) 100 UNIT/ML VIAL SQ SCH ×4 (06:09→21:48)
[2018-12-16 07:11] LABS: Basophils % (A) 0 %; Eosinophils # (A) 0.6 k/uL (0-0.7); Eosinophils % (A) 6 %; HCT 21.7 % (34.0-46.0); HGB 7.1 gm/dL (11.4-16.0); Hypochromasia Slight; Lymphocytes # (A) 0.7 k/uL (1.0-4.8); Lymphocytes % (A) 6 %; MCH 29.1 pg (25.0-35.0); MCHC 32.6 g/dL (31.0-37.0); MCV 89.1 fL (80.0-100.0); Mean Platelet Volume 7.2; Monocytes # (A) 0.6 k/uL (0-1.0); Monocytes % (A) 5 %; Neutrophils # (A) 9.5 k/uL (1.3-7.7); Neutrophils % (A) 81 %; Platelet Count 344 k/uL (150-450); Poikilocytosis Slight; RBC 2.43 m/uL (3.80-5.40); RDW 15.8 % (11.5-15.5); WBC 11.6 k/uL (3.8-10.6)
[2018-12-16] MEDS: hydrALAZINE HCL 50 MG TAB PO SCH ×3 (07:23→17:37)
[2018-12-16 07:24] LABS: Calcium 8.5 mg/dL (8.4-10.2); Potassium 3.8 mmol/L (3.5-5.1)
[2018-12-16] MEDS: DILTIAZEM ORAL 60 MG TAB PO SCH ×3 (07:25→21:48)
[2018-12-16] MEDS: APIXABAN 2.5 MG TABLET PO SCH ×2 (07:25→20:07)
[2018-12-16] MEDS: guaiFENesin 600 MG TABLET.ER PO SCH ×2 (07:26→20:07)
[2018-12-16] MEDS: ISOSORBIDE MONONITRATE ER 60 MG TAB.ER.24H PO SCH (07:26)
[2018-12-16] MEDS: METOPROLOL SUCCINATE (ER) 50 MG TAB.ER.24H PO SCH ×2 (07:26→20:07)
[2018-12-16] MEDS: METOLAZONE 5 MG TAB PO SCH (07:26)
[2018-12-16] MEDS: LORATADINE 10 MG TAB PO SCH (07:26)
[2018-12-16] MEDS: OXYMETAZOLINE 0.05% NASL SPRAY 1 SPRAY BOTTLE NASAL SCH ×2 (08:46→20:08)
[2018-12-16] MEDS: INSULIN DETEMIR (LEVEMIR) 100 UNIT/ML SYR SQ SCH ×2 (08:46→21:49)
[2018-12-16] MEDS: BUDESONIDE 1 MG/2 ML NEBU INHALATION SCH ×2 (08:50→19:19)
[2018-12-16] MEDS: PIPERACILLIN-TAZOBACTAM 3.375 GM in SODIUM CHLORIDE 0.9% 100 ML IVPB SCH ×2 (08:55→20:10)
[2018-12-16 11:28] LABS: Glucose,Whole Blood 136 mg/dL (75-99)
[2018-12-16] MEDS: LEVOFLOXACIN 250 MG TAB PO SCH (12:13)
[2018-12-16 16:28] LABS: Glucose,Whole Blood 187 mg/dL (75-99)
[2018-12-16] MEDS ORDERED: METOLAZONE 5 MG TAB PO ONE (16:45)
[2018-12-16] MEDS ORDERED: DARBEPOETIN ALFA 60 MCG/0.3 ML SYRINGE SQ SCH (16:45)
--- NOTE | 2018-12-16 17:18 | PN ---
PROGRESS NOTE The patient is seen for followup for acute kidney injury on top of chronic kidney disease and volume overload. Currently, she is maintained on a Lasix drip at 10 mg an hour. The patient was also started on metolazone at 5 mg daily. She states she is feeling slightly better, although continues to have significant edema. The patient is also requiring high oxygen levels to maintain her O2 sats. This morning, blood pressure was 176/74, heart rate 90 per minute. Patient is afebrile. Her heart rate 84 per minute. Examination of the heart S1, S2. Examination of the lungs, decreased breath sounds bilateral bases. Occasional wheezing is heard. Crackles are heard at the bases. Abdomen is soft, distended, obese. Examination of lower extremities shows 2+ edema bilaterally. 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 LABS: Hemoglobin 7.1, sodium 136, potassium 3.8, BUN 111, serum creatinine 3.3. ASSESSMENT: 1. Acute kidney injury mainly cardiorenal with some improvement in serum creatinine as compared to yesterday. Patient still remains significantly volume overloaded. Her weight has not decreased much over the last 2 days. She is staying at about 137 kg. The patient is maintained on Lasix drip at 10, along with metolazone at 5 mg daily. I will increase the Lasix drip to 15 mg per day and increase the Zaroxolyn to 10 mg daily. We will repeat labs in a.m. We need to avoid any other nephrotoxic agents. If volume status does not improve, patient may need to be dialyzed since her oxygen requirements have been increasing. I will repeat a chest x-ray tomorrow. 2. CKD stage IV secondary to cardiorenal syndrome with baseline creatinine 1.9-2.3. 3. Diastolic congestive heart failure, acute on top of chronic. 4. Acute respiratory failure, maintained on BiPAP mainly hypoxic secondary to congestive heart failure. 5. Anemia with no active bleeding noted. The patient is maintained on Eliquis. Hemoglobin staying at about 7.1-7.5 g/dL. iron saturation was only 5% on December 13. I do not see a on any IV iron during this admission. I will start her on IV iron and maintain the patient on Aranesp as well. 6. Hypertension, currently controlled. 7. Bilateral pneumonia, gram-negative, possibly. PLAN: Is increase the Lasix drip to 15 mg/hour and increase Zaroxolyn to 10 mg daily and repeat labs in a.m. Start IV iron. MMODL / IJN: [id number] /
[2018-12-16] MEDS: SODIUM FERRIC GLUCONAT-SUCROSE 125 MG in SODIUM CHLORIDE 0.9% 100 ML IVPB SCH (18:42)
[2018-12-16] MEDS: ATORVASTATIN 40 MG TAB PO SCH (20:07)
--- NOTE | 2018-12-16 20:24 | PN ---
PROGRESS NOTE DATE OF SERVICE: 12/16/2018 This patient has been using her BiPAP but remains on AIRVO during the day. On physical examination, her respiratory rate is 20, pulse rate of 96, temperature 97.8, blood pressure 152/63. Oxygen saturation on high-flow cannula is 94%. HEENT reveals pupils that are equal. Chest reveals decreased breath sounds. Cardiovascular system reveals an S1, S2. Abdomen is soft. There is 1+ edema. White count is 11.6, hemoglobin 7.1. Sodium 136, potassium 3.8, chloride 101, bicarb 24, BUN 111, creatinine of 3.33. IMPRESSION AT THIS TIME: 1. Congestive heart failure. 2. Acute pulmonary edema. 3. Acute respiratory failure. 4. Obstructive sleep apnea. 5. Anemia. 6. Acute on chronic renal failure. 7. Obesity. At this point in time, continue to keep her in negative fluid balance. Taper off oxygen as tolerated. Continue her on BiPAP while asleep. Continue bronchodilators. Continue antibiotics. Her prognosis at this time remains guarded. MMODL / IJN: [id number] /
--- NOTE | 2018-12-16 21:12 | XR ---
EXAMINATION TYPE: XR chest 1V portable DATE OF EXAM: 12/16/2018 CLINICAL HISTORY: Difficulty breathing and CHF progress study. TECHNIQUE: Single AP portable upright view of the chest is obtained. COMPARISON: Chest x-ray from today's earlier and older studies. FINDINGS: There is persisting cardiomegaly with bilateral opacities. Some improvement in right upper lobe opacity noted from prior study. Basilar opacities however are stable or slightly more prominent . No pleural effusion or pneumothorax is seen bilaterally. Osseous structures are intact. IMPRESSION: Suspect persistent CHF exacerbation as there is cardiomegaly and low lung volumes with mu ltifocal bilateral edema and/or infiltrates. Slightly more prominent bibasilar findings noted on curr ent study but improved right upper lung findings noted.
--- NOTE | 2018-12-16 21:54 | PN ---
PROGRESS NOTE DATE OF SERVICE: 12/16/2018 This 63-year-old woman who was admitted with CHF, acute exacerbation, acute on chronic diastolic dysfunction, also had bilateral pneumonia. The patient also had acute hypoxic respiratory failure. The creatinine has mildly improved to 3.3 3.7 a few days ago. No chest pain. No palpitations. No fever. The patient is using BiPAP at this time. The patient is on high-flow nasal cannula. Past medical history reviewed. REVIEW OF SYSTEMS: CARDIOVASCULAR SYSTEM: No angina, palpitations. RESPIRATORY SYSTEM: As mentioned earlier. GI: As mentioned earlier. : No dysuria or retention. NERVOUS SYSTEM: No numbness, weakness. CURRENT MEDICATIONS: Reviewed. They include: 1. Tylenol p.r.n. 2. DuoNeb q.i.d. and p.r.n. 3. Eliquis 2.5 mg b.i.d. 4. Lipitor 40 mg at bedtime. 5. Pulmicort 1 mg b.i.d. 6. Aranesp 60 mcg q.7 days. 7. Cardizem 60 mg t.i.d. 8. Mucinex. 9. Apresoline. 10.NovoLog. 11.Levemir. 12.Levaquin. 13.Claritin. 14.Toprol XL. 15.Zofran. 16.Protonix. 17.Zosyn 3.375 IV b.i.d. 18.MiraLAX. 19.Senokot. PHYSICAL EXAMINATION: Patient is alert, oriented x3. Pulse is 96, blood pressure 153/63, respiration 20, temperature 97.8, pulse ox 94% on 70% high-flow oxygen. HEENT: Conjunctivae normal. NECK: No jugular venous distention. CARDIOVASCULAR SYSTEM: S1, S2 muffled. RESPIRATORY SYSTEM: Breath sounds diminished at the bases. Bilateral scattered rhonchi and crackles. ABDOMEN: Soft, obese, non-tender. LEGS: No edema. No swelling. NERVOUS SYSTEM: No focal deficit. LABS: WBC 11.6, hemoglobin 7.1, creatinine 3.33. Urine legionella is negative. Mycoplasma IgG is positive. ASSESSMENT: 1. Congestive heart failure, acute exacerbation, with acute on chronic diastolic dysfunction, ejection fraction 50% to 60%. 2. Bilateral pneumonia, possibly gram-negative. 3. Acute hypoxic respiratory failure, on BiPAP on and off and currently high- flow nasal cannula. 4. Acute kidney injury, possibly secondary to congestive heart failure and acute exacerbation with possible acute cardiorenal syndrome. 5. Nausea, vomiting; possible acute gastroenteritis. 6. History of diabetes mellitus, type 2. 7. History of coronary artery disease. 8. Hypertension. 9. Hyperlipidemia. 10.Anemia, normocytic; anemia of chronic disease. RECOMMENDATIONS AND DISCUSSION: I recommend to continue current medications, continue with the monitoring, symptomatic treatment. I would also recommend careful transfusion of one unit because of the multiple complex medical issues and continued persistent symptomatic anemia also. Broad- spectrum IV antibiotics on board. Guarded prognosis. Further recommendations to follow. See orders for further details. MMODL / IJN: [id number] / MTDD
[2018-12-16 23:18] LABS: Glucose,Whole Blood 256 mg/dL (75-99)
[2018-12-17] MEDS: IPRATROPIUM-ALBUTEROL 3 ML NEB INHALATION SCH ×5 (04:14→19:45)
[2018-12-17] MEDS: FUROSEMIDE 100 MG in SODIUM CHLORIDE 0.9% 90 ML IV SCH ×2 (04:44→20:24)
[2018-12-17 05:36] LABS: Glucose,Whole Blood 265 mg/dL (75-99)
[2018-12-17] MEDS: INSULIN ASPART (NovoLOG) 100 UNIT/ML VIAL SQ SCH ×4 (06:41→21:30)
[2018-12-17 06:46] LABS: Basophils % (A) 0 %; Eosinophils # (A) 0.6 k/uL (0-0.7); Eosinophils % (A) 6 %; HCT 22.8 % (34.0-46.0); HGB 7.3 gm/dL (11.4-16.0); Hypochromasia Slight; Lymphocytes # (A) 0.6 k/uL (1.0-4.8); Lymphocytes % (A) 7 %; MCH 28.9 pg (25.0-35.0); MCHC 32.1 g/dL (31.0-37.0); MCV 90.1 fL (80.0-100.0); Monocytes # (A) 0.5 k/uL (0-1.0); Monocytes % (A) 5 %; Neutrophils # (A) 7.6 k/uL (1.3-7.7); Neutrophils % (A) 80 %; Platelet Count 368 k/uL (150-450); Poikilocytosis Slight; RBC 2.53 m/uL (3.80-5.40); RDW 15.7 % (11.5-15.5); WBC 9.5 k/uL (3.8-10.6)
[2018-12-17 06:56] LABS: Calcium 8.5 mg/dL (8.4-10.2); Potassium 3.8 mmol/L (3.5-5.1)
[2018-12-17] MEDS: PANTOPRAZOLE 40 MG TABLET PO SCH (07:31)
[2018-12-17] MEDS: OXYMETAZOLINE 0.05% NASL SPRAY 1 SPRAY BOTTLE NASAL SCH ×2 (07:31→20:24)
[2018-12-17] MEDS: hydrALAZINE HCL 50 MG TAB PO SCH ×3 (07:31→17:14)
[2018-12-17] MEDS: APIXABAN 2.5 MG TABLET PO SCH ×2 (07:32→20:23)
[2018-12-17] MEDS: ISOSORBIDE MONONITRATE ER 60 MG TAB.ER.24H PO SCH (07:32)
[2018-12-17] MEDS: LORATADINE 10 MG TAB PO SCH (07:32)
[2018-12-17] MEDS: guaiFENesin 600 MG TABLET.ER PO SCH ×2 (07:32→20:23)
[2018-12-17] MEDS: METOLAZONE 5 MG TAB PO SCH (07:32)
[2018-12-17] MEDS: DILTIAZEM ORAL 60 MG TAB PO SCH ×3 (07:32→21:32)
[2018-12-17] MEDS: METOPROLOL SUCCINATE (ER) 50 MG TAB.ER.24H PO SCH ×2 (07:35→20:23)
[2018-12-17] MEDS: BUDESONIDE 1 MG/2 ML NEBU INHALATION SCH ×2 (07:38→19:45)
[2018-12-17] MEDS: PIPERACILLIN-TAZOBACTAM 3.375 GM in SODIUM CHLORIDE 0.9% 100 ML IVPB SCH ×2 (08:25→20:24)
[2018-12-17] MEDS: INSULIN DETEMIR (LEVEMIR) 100 UNIT/ML SYR SQ SCH ×2 (08:30→21:30)
[2018-12-17] MEDS: SODIUM FERRIC GLUCONAT-SUCROSE 125 MG in SODIUM CHLORIDE 0.9% 100 ML IVPB SCH (08:58)
[2018-12-17 11:13] LABS: Glucose,Whole Blood 243 mg/dL (75-99)
[2018-12-17 16:20] LABS: Glucose,Whole Blood 300 mg/dL (75-99)
--- NOTE | 2018-12-17 16:24 | PN ---
PROGRESS NOTE This patient has been more compliant with BiPAP while an inpatient. She remains on AIRVO. She has been diuresing well. Her Dunaway catheter has been removed. On physical examination, respiratory rate is 20, blood pressure 135/83, pulse rate 69, temperature 97.6. HEENT reveals AIRVO in place. Chest reveals decreased breath sounds. Cardiovascular system is in S1, S2. Abdomen is soft. There is 1+ edema. I&O has been negative 3000 mL. Her weight is down to 134.2 kg. Labs reveal a BUN of 104, creatinine of 3.14. IMPRESSION AT THIS TIME: 1. Congestive heart failure. 2. Acute pulmonary edema. 3. Acute respiratory failure. 4. Obstructive sleep apnea with obesity hypoventilation. 5. Anemia. I agree with transfusing her one unit of packed cells. Continue BiPAP. Taper oxygen as tolerated. Diurese her. Continue bronchodilators and antibiotics. Her prognosis is guarded, but she is slowly starting to improve. MMODL / IJN: [id number] /
[2018-12-17] MEDS: ATORVASTATIN 40 MG TAB PO SCH (20:23)
--- NOTE | 2018-12-17 21:19 | PN ---
PROGRESS NOTE Patient is seen for followup for acute kidney injury on top of chronic kidney disease and severe volume overload. The patient is maintained on Lasix drip. Her Lasix drip was increased to 15 mg/hour yesterday and Zaroxolyn was increased as well. It looks like she has diuresed well and her weight is down by about 3 kg. Overall, patient states that her swelling is also improved and she is breathing somewhat better. Her oxygen requirement has also decreased. Urine output was about 5.7 L for 24 hours. PHYSICAL EXAMINATION: This morning, blood pressure was 166/70, heart rate of 70 per minute. Patient is afebrile. Examination of the heart S1, S2. Examination of lungs bilateral breath sounds are heard. Decreased breath sounds at the bases. No crackles or wheezing is heard. Abdomen is soft, nontender. Examination of lower extremities shows edema 4+ bilaterally. 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 LAB: Show hemoglobin 7.3, sodium 136, potassium 3.8, BUN 104, serum creatinine 3.1, calcium 8.5. ASSESSMENT: 1. Acute kidney injury, cardiorenal, currently somewhat improved. Continue with the current dose of Lasix and metolazone. I will proceed with the packed RBCs transfusion. Although the hemoglobin is 7.3, this will help with her renal failure and congestive heart failure as well. 2. Severe volume overload, slowly improving. Continue with 15 mg/hour of Lasix and Zaroxolyn at 10 mg daily. 3. Anemia with severe iron deficiency, maintained on IV iron as well as Aranesp. No active bleeding noted at this time. 4. Respiratory failure, acute hypoxic secondary to congestive heart failure and volume overload maintained on BiPAP. 5. Chronic kidney disease, NKF stage IV secondary to nephrosclerosis and cardiorenal syndrome with baseline creatinine 1.9-2.3. 6. Diastolic heart failure, acute on top of chronic. PLAN: Continue the Lasix drip and Zaroxolyn. May transfuse packed RBCs. However, should over 4 hours. Continue with IV iron for now and repeat labs in a.m. MMROSA ELENAL / KEENANN: [id number] /
[2018-12-17 21:28] LABS: Glucose,Whole Blood 336 mg/dL (75-99)
--- NOTE | 2018-12-17 22:55 | PN ---
PROGRESS NOTE DATE OF SERVICE: 12/17/2018 This 63-year-old woman who was admitted with CHF, acute exacerbation, also had possible bilateral pneumonia. The most recent x-ray done yesterday, which was reviewed personally by me, showed bilateral lesions, still confluent. Patient has been started on IV insulin drip at this time. The patient is being followed by multiple consultants, including Nephrology, Cardiology, as well as Pulmonology. The creatinine has actually worsened to 3.7, but currently it is improving at 3.14, indicating cardiorenal syndrome. Hemoglobin is 7.3. A unit of transfusion is being arranged carefully at this time. Past medical history reviewed. REVIEW OF SYSTEMS: CARDIOVASCULAR SYSTEM: As mentioned earlier. RESPIRATORY SYSTEM: As mentioned earlier. GI: No nausea, vomiting. : No dysuria or retention. NERVOUS SYSTEM: No numbness, weakness. CURRENT MEDICATIONS: Reviewed. They include: 1. Tylenol 650 q.6 p.r.n. 2. DuoNeb q.i.d. and p.r.n. 3. Eliquis 2.5 mg b.i.d. 4. Lipitor 40 mg at bedtime. 5. Pulmicort 1 mg b.i.d. 6. Aranesp. 7. Cardizem CD. 8. Iron gluconate. 9. Lasix drip. 10.Apresoline. 11.NovoLog. 12.Levemir. 13.Imdur. 14.Levaquin. 15.Zaroxolyn. 16.Toprol-XL. 17.Lopressor. 18.Zofran. 19.Polyethylene glycol. 20.Zosyn IV. PHYSICAL EXAMINATION: Patient is alert, oriented x2. Pulse 91, blood pressure 169/73, respiration 20, temperature 97.6, pulse ox 94% on high-flow nasal cannula. HEENT: Conjunctivae normal. NECK: Jugular venous distention in the root of the neck. CARDIOVASCULAR SYSTEM: S1, S2 muffled. Ejection systolic murmur. RESPIRATORY SYSTEM: Breath sounds diminished at the bases. Bilateral scattered rhonchi and crackles. Expiratory wheezing. ABDOMEN: Soft, non-tender. LEGS: Minimal edema. NERVOUS SYSTEM: No focal deficit. LABS: WBC 9.2, hemoglobin 7.3, sodium 136. ASSESSMENT: 1. Congestive heart failure, acute exacerbation, with acute on chronic diastolic dysfunction, ejection fraction 50% to 60%. 2. Bilateral pneumonia, possibly gram-negative. 3. Acute hypoxic respiratory failure, on BiPAP on and off with high-flow nasal cannula. 4. Acute kidney injury, possibly secondary to congestive heart failure and acute exacerbation with possible acute cardiorenal syndrome. 5. Nausea, vomiting, possible acute gastroenteritis. 6. Diabetes mellitus, type 2. 7. History of coronary artery disease. 8. Hypertension. 9. Hyperlipidemia. 10.Anemia; normocytic anemia of chronic disease. RECOMMENDATIONS AND DISCUSSION: I recommend to continue current medications, continue with the monitoring, symptomatic treatment. Otherwise at this time I would recommend monitoring the creatinine closely. Continue with Lasix drip. Continue with antibiotics. Continue to monitor fluid/electrolyte balance closely. Transfusion has been arranged as before cautiously. We will continue to monitor. Prognosis guarded. Further recommendations to follow. Patient is still on high-flow oxygen, which will be a deterrent for any discharge planning at this time; however, we will continue to monitor. As mentioned earlier, the prognosis is extremely guarded. MMODL / IJN: [id number] /
[2018-12-18] MEDS: IPRATROPIUM-ALBUTEROL 3 ML NEB INHALATION SCH ×7 (00:19→23:38)
[2018-12-18 05:57] LABS: Glucose,Whole Blood 244 mg/dL (75-99)
[2018-12-18] MEDS: hydrALAZINE HCL 50 MG TAB PO SCH ×3 (06:22→17:09)
[2018-12-18] MEDS: PANTOPRAZOLE 40 MG TABLET PO SCH (06:22)
[2018-12-18] MEDS: INSULIN ASPART (NovoLOG) 100 UNIT/ML VIAL SQ SCH ×4 (06:23→21:19)
[2018-12-18 07:22] LABS: Basophils % (A) 0 %; Eosinophils # (A) 0.6 k/uL (0-0.7); Eosinophils % (A) 6 %; HCT 23.6 % (34.0-46.0); HGB 7.4 gm/dL (11.4-16.0); Hypochromasia Slight; Lymphocytes # (A) 0.9 k/uL (1.0-4.8); Lymphocytes % (A) 9 %; MCHC 31.2 g/dL (31.0-37.0); MCV 89.5 fL (80.0-100.0); Mean Platelet Volume 7.1; Monocytes # (A) 0.5 k/uL (0-1.0); Monocytes % (A) 5 %; Neutrophils # (A) 7.8 k/uL (1.3-7.7); Neutrophils % (A) 78 %; Platelet Count 381 k/uL (150-450); Poikilocytosis Slight; RBC 2.64 m/uL (3.80-5.40); RDW 15.6 % (11.5-15.5)
[2018-12-18 07:42] LABS: Calcium 8.8 mg/dL (8.4-10.2); Magnesium 2.1 mg/dL (1.6-2.3); Potassium 3.9 mmol/L (3.5-5.1)
[2018-12-18] MEDS: BUDESONIDE 1 MG/2 ML NEBU INHALATION SCH ×2 (08:15→19:03)
[2018-12-18] MEDS: FUROSEMIDE 100 MG in SODIUM CHLORIDE 0.9% 90 ML IV SCH ×3 (08:35→20:01)
[2018-12-18] MEDS: INSULIN DETEMIR (LEVEMIR) 100 UNIT/ML SYR SQ SCH ×2 (08:38→21:20)
[2018-12-18] MEDS: SALINE NASAL GEL 14.1 GM TUBE TOPICAL PRN (08:43)
[2018-12-18] MEDS: guaiFENesin 600 MG TABLET.ER PO SCH ×2 (08:56→21:18)
[2018-12-18] MEDS: APIXABAN 2.5 MG TABLET PO SCH ×2 (08:56→21:18)
[2018-12-18] MEDS: DILTIAZEM ORAL 60 MG TAB PO SCH ×3 (08:56→21:21)
[2018-12-18] MEDS: LORATADINE 10 MG TAB PO SCH (08:56)
[2018-12-18] MEDS: METOPROLOL SUCCINATE (ER) 50 MG TAB.ER.24H PO SCH ×2 (08:56→21:20)
[2018-12-18] MEDS: METOLAZONE 5 MG TAB PO SCH (08:56)
[2018-12-18] MEDS: OXYMETAZOLINE 0.05% NASL SPRAY 1 SPRAY BOTTLE NASAL SCH ×2 (09:00→21:21)
[2018-12-18] MEDS: PIPERACILLIN-TAZOBACTAM 3.375 GM in SODIUM CHLORIDE 0.9% 100 ML IVPB SCH ×2 (09:04→21:21)
[2018-12-18] MEDS: SODIUM FERRIC GLUCONAT-SUCROSE 125 MG in SODIUM CHLORIDE 0.9% 100 ML IVPB SCH (09:42)
[2018-12-18 11:19] LABS: Glucose,Whole Blood 287 mg/dL (75-99)
--- NOTE | 2018-12-18 12:22 | P.PN ---
Subjective Progress Note Date: 12/18/18 12/18/2017: Patient seen and examined. Patient is currently on airflow with 40% FiO2 and 50 L/m flow. The patient's creatinine is improving. She is on Lasix drip and Zaroxolyn. The patient did wear BiPAP overnight. She states that she is starting to feel better overall. She feels like her breathing is starting to improve finally. She denies any fevers or chills. Objective - Vital Signs Vital signs: Vital Signs Temp 98.1 F 12/18/18 11:30 Pulse 88 12/18/18 11:46 Resp 20 12/18/18 11:30 BP 143/73 12/18/18 11:30 Pulse Ox 96 12/18/18 11:30 Intake & Output 12/17/18 12/18/18 12/18/18 18:59 06:59 18:59 Intake Total 1540 1200 430 Output Total 2800 1600 1000 Balance -1260 -400 -570 Weight 133.3 kg Intake: IV 220 190 Furosemide 100 mg In 120 90 Sodium Chloride 0.9% 90 ml @ 15 MG/HR 15 mls/hr IV .Q6H40M ELISABETH Rx#: [id number] Piperacillin-Tazobactam 3 100 100 .375 gm In Sodium Chloride 0.9% 100 ml @ 25 mls/hr IVPB Q12HR [facility] Rx #:[id number] Intake, IV Titration 100 Amount Furosemide 100 mg In 100 Sodium Chloride 0.9% 90 ml @ 15 MG/HR 15 mls/hr IV .Q6H40M ELISABETH Rx#: [id number] Oral 600 1200 240 Blood Product 620 Rc As-1 Unit 310 [id number] Output: Urine 2800 1600 1000 Uretheral (Dunaway) 1600 Other: Voiding Method Bedside Commode Bedside Commode Bedside Commode # Voids 1 - Exam Gen.: Patient is alert and oriented 3, no acute distress, morbidly obese Cardiovascular: Regular rate and rhythm, S1/S2 Lungs: Diminished breath sounds with bilateral crackles Abdomen: Soft nontender nondistended positive bowel sounds Extremities: + Edema - Labs CBC & Chem 7: 12/18/18 06:29 12/18/18 06:29 Labs: Abnormal Lab Results - Last 24 Hours (Table) 12/16/18 12/17/18 12/17/18 Range/Units 19:53 16:13 21:27 RBC (3.80-5.40) m/uL Hgb (11.4-16.0) gm/dL Hct (34.0-46.0) % RDW (11.5-15.5) % Neutrophils # (1.3-7.7) k/uL Lymphocytes # (1.0-4.8) k/uL Chloride (98-107) mmol/L BUN (7-17) mg/dL Creatinine (0.52-1.04) mg/dL Glucose (74-99) mg/dL POC Glucose (mg/dL) 300 H 336 H (75-99) mg/dL Crossmatch See Detail 12/18/18 12/18/18 12/18/18 Range/Units 05:55 06:29 06:29 RBC 2.64 L (3.80-5.40) m/uL Hgb 7.4 L (11.4-16.0) gm/dL Hct 23.6 L (34.0-46.0) % RDW 15.6 H (11.5-15.5) % Neutrophils # 7.8 H (1.3-7.7) k/uL Lymphocytes # 0.9 L (1.0-4.8) k/uL Chloride 96 L (98-107) mmol/L BUN 107 H* (7-17) mg/dL Creatinine 2.62 H (0.52-1.04) mg/dL Glucose 206 H (74-99) mg/dL POC Glucose (mg/dL) 244 H (75-99) mg/dL Crossmatch 12/18/18 Range/Units 11:18 RBC (3.80-5.40) m/uL Hgb (11.4-16.0) gm/dL Hct (34.0-46.0) % RDW (11.5-15.5) % Neutrophils # (1.3-7.7) k/uL Lymphocytes # (1.0-4.8) k/uL Chloride (98-107) mmol/L BUN (7-17) mg/dL Creatinine (0.52-1.04) mg/dL Glucose (74-99) mg/dL POC Glucose (mg/dL) 287 H (75-99) mg/dL Crossmatch Microbiology - Last 24 Hours (Table) 12/12/18 13:02 Blood Culture - Preliminary Blood No Growth after 120 hours Assessment and Plan Assessment: Acute hypoxic respiratory failure Acute exacerbation of diastolic congestive heart failure Pulmonary edema NSTEMI type 2 due to supply-demand mismatch Obstructive sleep apnea compliant with CPAP Gastroenteritis Anemia, normochromic, normcytic, chronic History of mild pulmonary hypertension with RVSP 41 mmHg, appears to be improving on most recent echo Acute kidney injury on chronic kidney disease stage IV Cardiorenal syndrome Diabetes mellitus type 2 History of coronary artery disease status post PCI Morbid obesity Hypertension Dyslipidemia Mild PCM O2 to maintain saturation greater than or equal to 90%, bipap Duo nebs Pulmicort -1 mg BID I's and O's and daily weights Aggressive Diuresis Eliquis Incentive spirometry and pulmonary hygiene Cardiology and nephrology recommendations Zosyn and Levaquin Mucinex Repeat CXR today PT and OT Discussed with RT, will continue to titrate FiO2 today, once 30% or less, will titrate flow rate
[2018-12-18] MEDS: LEVOFLOXACIN 250 MG TAB PO SCH (12:30)
[2018-12-18] MEDS: ISOSORBIDE MONONITRATE ER 60 MG TAB.ER.24H PO SCH (12:30)
--- NOTE | 2018-12-18 16:05 | PN ---
PROGRESS NOTE Patient is seen for followup for chronic kidney disease and acute kidney injury and severe volume overload. This morning she states she is feeling better. The patient's weight is down to 133 from about 137 kg. Her oxygen requirement has decreased as well. 24 hour urine output was 4.4 L. PHYSICAL EXAMINATION: This morning, blood pressure was 154/71, heart rate 80 per minute. She is afebrile examination of the heart S1, S2. Examination of lungs bilateral breath sounds are heard. Abdomen is soft, nontender. Examination of lower extremities shows edema 4+ bilaterally, slowly decreasing. LABS: Show sodium of 137, potassium 3.9, BUN 107, serum creatinine 2.62, hemoglobin 7.4. ASSESSMENT: 1. Acute kidney injury, cardiorenal, slowly improving. 2. Severe volume overload. Continue with the Lasix drip and Zaroxolyn. Patient's weight is steadily decreasing including her oxygen requirements. 3. Anemia with severe iron deficiency, maintained on IV iron and started on Aranesp. No active bleeding noted. The patient received one unit packed RBCs yesterday, 1 would expect the hemoglobin to be higher than the 7.4. We will continue to monitor the CBC. 4. Respiratory failure, acute hypoxic secondary to congestive heart failure, currently slowly improving. 5. Chronic kidney disease stage IV secondary to nephrosclerosis and cardiorenal syndrome. Baseline creatinine 1.9-2.3 mg/dL. 6. Diastolic heart failure, acute on top of chronic. PLAN: Continue with Lasix drip and current dose of Zaroxolyn. Monitor hemoglobin as I would expect it to have been higher than the current hemoglobin after 1 unit packed RBCs transfusion yesterday. MMODL / IJN: [id number] /
[2018-12-18 16:20] LABS: Glucose,Whole Blood 292 mg/dL (75-99)
[2018-12-18 18:14] LABS: Albumin 3.2 g/dL (3.5-5.0); Calcium 9.1 mg/dL (8.4-10.2); Potassium 3.8 mmol/L (3.5-5.1); Total Bilirubin 0.5 mg/dL (0.2-1.3); Total Protein 6.4 g/dL (6.3-8.2)
--- NOTE | 2018-12-18 19:56 | PN ---
PROGRESS NOTE DATE OF SERVICE: 12/18/2018 This 63-year-old woman who was admitted with CHF acute exacerbation also had bilateral pneumonia. The patient is being closely monitored. The patient was on insulin drip, Pulmonary and as well as Nephrology and Cardiology following the patient closely. The patient is on 15 mg of Lasix drip as of now. No chest pain. No palpitations. No fever. EXAM: Alert and oriented times three. Pulse 98. Blood pressure 121/88, respiration 20, temperature 97.2, pulse ox 92% on 30%. HEENT: Conjunctivae normal. NECK: No jugular venous distention. CARDIOVASCULAR: S1, S2. RESPIRATORY: Breath sounds diminished in the bases. Bilateral scattered rhonchi and crackles. Abdomen is soft, nontender. Legs are no edema, no swelling. CENTRAL NERVOUS SYSTEM: No focal deficits. LABS: Creatinine is 2.6, hemoglobin 7.4, otherwise chest x-ray reviewed. ASSESSMENT: 1. Congestive heart failure acute exacerbation with acute on chronic diastolic dysfunction, ejection fraction 50% to 60%. 2. History of bilateral pneumonia possibly gram-negative. 3. Acute hypoxic respiratory failure on BiPAP on and off with high-flow nasal cannula currently. 4. Acute kidney injury, possibly secondary to congestive heart failure acute exacerbation as well as possible acute cardiorenal syndrome. 5. Nausea, vomiting, possible acute gastroenteritis. 6. Diabetes mellitus type 2. 7. History of coronary artery disease. 8. Hypertension. 9. Hyperlipidemia. 10.Anemia, normocytic anemia of chronic disease. RECOMMENDATIONS AND DISCUSSION: Recommend to continue current medications, monitoring, management and symptomatic treatment. Continue with Lasix drip. Monitor closely. Patient received 1 unit transfusion. Hemoglobin is only 7.4. We will continue to monitor. I would also recommend a retic count and a CMP also. MMODL / IJN: [id number] /
[2018-12-18 20:56] LABS: Glucose,Whole Blood 296 mg/dL (75-99)
[2018-12-18] MEDS: ATORVASTATIN 40 MG TAB PO SCH (21:18)
[2018-12-19] MEDS: IPRATROPIUM-ALBUTEROL 3 ML NEB INHALATION SCH ×6 (03:29→23:52)
[2018-12-19 04:44] LABS: Glucose,Whole Blood 277 mg/dL (75-99)
[2018-12-19] MEDS: PANTOPRAZOLE 40 MG TABLET PO SCH (06:19)
[2018-12-19] MEDS: hydrALAZINE HCL 50 MG TAB PO SCH ×3 (06:19→18:25)
[2018-12-19] MEDS: INSULIN ASPART (NovoLOG) 100 UNIT/ML VIAL SQ SCH ×4 (06:20→22:29)
[2018-12-19 07:14] LABS: Basophils # (A) 0.1 k/uL (0-0.2); Basophils % (A) 0 %; Eosinophils # (A) 0.6 k/uL (0-0.7); Eosinophils % (A) 5 %; HCT 26.3 % (34.0-46.0); HGB 8.7 gm/dL (11.4-16.0); Hypochromasia Slight; Lymphocytes # (A) 0.8 k/uL (1.0-4.8); Lymphocytes % (A) 7 %; MCH 28.5 pg (25.0-35.0); MCHC 32.9 g/dL (31.0-37.0); MCV 86.7 fL (80.0-100.0); Mean Platelet Volume 7.6; Monocytes # (A) 0.5 k/uL (0-1.0); Monocytes % (A) 4 %; Neutrophils # (A) 10.5 k/uL (1.3-7.7); Neutrophils % (A) 83 %; Platelet Count 435 k/uL (150-450); Poikilocytosis Slight; RBC 3.04 m/uL (3.80-5.40); RDW 15.8 % (11.5-15.5); WBC 12.6 k/uL (3.8-10.6)
--- NOTE | 2018-12-19 07:14 | XR ---
EXAMINATION TYPE: XR chest 1V portable DATE OF EXAM: 12/19/2018 CLINICAL HISTORY: Difficulty breathing and CHF progress study. TECHNIQUE: Single AP portable upright view of the chest is obtained. COMPARISON: Chest x-ray from 3 days earlier and older studies FINDINGS: There is cardiomegaly with bilateral opacities improving from most recent prior. Overlying EKG leads are redemonstrated. Improvement in right basilar and left upper lung opacities is evident. No pleural effusion or pneumothorax is noted. Osseous structures are intact. IMPRESSION: Persistent cardiomegaly with minimal lung volumes with improving multifocal bilateral franki ma and/or infiltrates. Suspect resolving CHF exacerbation.
[2018-12-19] MEDS: BUDESONIDE 1 MG/2 ML NEBU INHALATION SCH ×2 (08:31→19:51)
[2018-12-19] MEDS: DILTIAZEM ORAL 60 MG TAB PO SCH ×3 (09:43→22:49)
[2018-12-19] MEDS: METOPROLOL SUCCINATE (ER) 50 MG TAB.ER.24H PO SCH ×2 (09:43→22:27)
[2018-12-19] MEDS: LORATADINE 10 MG TAB PO SCH (09:44)
[2018-12-19] MEDS: guaiFENesin 600 MG TABLET.ER PO SCH ×2 (09:44→22:26)
[2018-12-19] MEDS: APIXABAN 2.5 MG TABLET PO SCH ×2 (09:46→22:26)
[2018-12-19] MEDS: ISOSORBIDE MONONITRATE ER 60 MG TAB.ER.24H PO SCH (09:46)
[2018-12-19] MEDS: SALINE NASAL GEL 14.1 GM TUBE TOPICAL PRN (09:47)
[2018-12-19] MEDS: METOLAZONE 5 MG TAB PO SCH (09:47)
[2018-12-19] MEDS: INSULIN DETEMIR (LEVEMIR) 100 UNIT/ML SYR SQ SCH ×2 (10:14→22:31)
[2018-12-19] MEDS: SODIUM FERRIC GLUCONAT-SUCROSE 125 MG in SODIUM CHLORIDE 0.9% 100 ML IVPB SCH (10:14)
[2018-12-19] MEDS: PIPERACILLIN-TAZOBACTAM 3.375 GM in SODIUM CHLORIDE 0.9% 100 ML IVPB SCH ×2 (10:14→22:31)
[2018-12-19 11:40] LABS: Glucose,Whole Blood 321 mg/dL (75-99)
[2018-12-19] MEDS: FUROSEMIDE 100 MG in SODIUM CHLORIDE 0.9% 90 ML IV SCH ×2 (12:05→19:46)
[2018-12-19] MEDS: OXYMETAZOLINE 0.05% NASL SPRAY 1 SPRAY BOTTLE NASAL SCH ×2 (12:32→22:29)
[2018-12-19 16:36] LABS: Glucose,Whole Blood 344 mg/dL (75-99)
[2018-12-19 16:51] LABS: Potassium 3.9 mmol/L (3.5-5.1)
--- NOTE | 2018-12-19 16:53 | PN ---
PROGRESS NOTE Patient is seen for followup for acute kidney injury on top of chronic kidney disease. Her weight continues to improve. It is down to 128.8 kg today from 137 three days ago. On examination blood pressure is 174/77 this morning. Heart rate 76 per minute. Patient is afebrile. EXAMINATION OF THE HEART: S1 and S2. EXAMINATION OF LUNGS: Bilateral breath sounds are heard. Decreased breath sounds at bases. ABDOMEN: Soft, morbidly obese. Examination of lower extremities shows 4+ edema bilaterally. Labs show hemoglobin 8.7. Basic metabolic panel is not available from today. ASSESSMENT: 1. Acute kidney injury on top of chronic kidney disease, cardiorenal, currently improving. 2. Severe volume overload, progressively improving. 3. Acute on top of chronic diastolic heart failure. 4. Anemia with evidence of severe iron deficiency, maintained on IV iron and Aranesp. Patient did get one unit packed RBCs transfusion. 5. Chronic kidney disease, stage IV, secondary to nephrosclerosis and cardiorenal syndrome with baseline creatinine 1.9 to 2.3 mg/dL. PLAN: Check labs today. Continue with current dose of Zaroxolyn and metolazone. Continue with daily weights. Fluid restriction. Repeat labs in a.m. also. MMODL / IJN: [id number] /
[2018-12-19 19:49] LABS: Hemoglobin A1C 8.3 % (4.0-6.0)
[2018-12-19 20:13] LABS: Glucose,Whole Blood 328 mg/dL (75-99)
[2018-12-19] MEDS: ATORVASTATIN 40 MG TAB PO SCH (22:26)
--- NOTE | 2018-12-19 22:29 | PN ---
PROGRESS NOTE DATE OF SERVICE: 12/19/2018 This 63-year-old woman who presented with multiple medical problems, including CHF, acute exacerbation, and pneumonia, is being closely monitored. Currently the patient is making some improvement. The most recent chest x-ray, which was reviewed by me personally, showed definitely some improvement in the fluid status. The patient is closely monitored at this time. Cardiology and Nephrology are following the patient closely. Currently the patient is still on Lasix drip at 15 mg/hour and today's creatinine remained stable at 2.62. Past medical history reviewed. REVIEW OF SYSTEMS: CARDIOVASCULAR SYSTEM: No angina, palpitations. RESPIRATORY SYSTEM: As mentioned earlier. GI: As mentioned earlier. : No dysuria or retention. NERVOUS SYSTEM: No numbness, weakness. CURRENT MEDICATIONS: Reviewed. They include: 1. Tylenol 650 q.6 p.r.n. 2. DuoNeb q.i.d. and p.r.n. 3. Eliquis 2.5 mg b.i.d. 4. Lipitor 40 mg at bedtime. 5. Pulmicort 1 mg b.i.d. 6. Aranesp subcutaneously. 7. Cardizem 60 mg p.o. daily. 8. Lasix. 9. Mucinex 1200 mg p.o. b.i.d. 10.Apresoline. 11.NovoLog. 12.Levemir. 13.Imdur. 14.Levaquin. 15.Claritin. 16.Zaroxolyn. 17.Toprol-XL. 18.Nitrostat. 19.Afrin. 20.Protonix. 21.Zosyn 3.375 IV q.6. 22.Senokot. PHYSICAL EXAMINATION: Patient is alert, oriented x3. Pulse is 76, blood pressure 166/72, respiration 18, temperature 97.6, pulse ox 94% on 30% high-flow nasal cannula. HEENT: Conjunctivae normal. NECK: No jugular venous distention. CARDIOVASCULAR SYSTEM: S1, S2 muffled. RESPIRATORY SYSTEM: Breath sounds diminished at the bases. Bilateral scattered rhonchi and crackles. ABDOMEN: Soft, non-tender. No mass palpable. LEGS: No edema. No swelling. NERVOUS SYSTEM: Higher functions as mentioned earlier. Moves all 4 limbs. No focal motor or sensory deficit. LYMPHATICS: No lymph node palpable in neck, axillae or groin. SKIN: No ulcer, rash, bleeding. JOINTS: No active deforming arthropathy. LABS: WBC 12.6, hemoglobin 8.7. Sodium 134, potassium 3.9, and creatinine is 2.62. ASSESSMENT: 1. Congestive heart failure, acute exacerbation, with acute on chronic diastolic dysfunction, ejection fraction 50% to 60%, with slow improvement. 2. Bilateral pneumonia, possibly gram-negative. 3. Acute hypoxic respiratory failure secondary to above, on BiPAP on and off, currently on high-flow nasal cannula. 4. Acute kidney injury, possibly secondary to congestive heart failure, acute exacerbation, as well as possible acute cardiorenal syndrome. 5. Nausea, vomiting; possible acute gastroenteritis. 6. Gait dysfunction. 7. Diabetes mellitus, type 2. 8. History of coronary artery disease. 9. Hypertension. 10.Hyperlipidemia. 11.Anemia; normocytic anemia of chronic disease. RECOMMENDATIONS AND DISCUSSION: I recommend to continue current medications, continue with the monitoring, symptomatic treatment. I would also recommend PT/OT evaluation as well as possible ECF rehab. I would also recommend continued diuretics. Monitor electrolytes closely. As mentioned earlier, creatinine is rather stable. The blood sugars are elevated. NT proBNP is elevated. Hemoglobin A1c is not available at this time. I would recommend continued insulin scale. Patient is on a combination of Lantus and lispro at home. The Lantus dose is being increased at this time. Apart from a single value all the values are definitely elevated. I would recommend Lantus 60 twice daily. See orders for further details. Further recommendations to follow. Malachi PÉREZL / IJN: [id number] / CHRISTIAN
--- NOTE | 2018-12-20 01:27 | PN ---
PROGRESS NOTE DATE OF SERVICE: 12/19/2018. HISTORY: She was seen again on December 19, 2018. She has been hemodynamically stable. She is less short of breath. Her FiO2 requirements are coming down. PHYSICAL EXAMINATION: Her vital is stable. She is afebrile. Her chest reveals decreased breath sounds in the bases. Cardiovascular system reveals an S1 and S2. Abdomen is soft. There is 1+ pedal edema. IMPRESSION: 1. Severe obstructive sleep apnea with obesity hypoventilation syndrome. 2. Congestive heart failure and cor pulmonale. 3. Acute renal failure. 4. Obesity. At this point in time, continue to keep a negative fluid balance. Continue her on her current medications which were reviewed. Her prognosis at this time remains guarded, but she is slowly improving. MMODL / IJN: [id number] /
[2018-12-20] MEDS: IPRATROPIUM-ALBUTEROL 3 ML NEB INHALATION SCH ×6 (03:40→23:02)
[2018-12-20 06:10] LABS: Glucose,Whole Blood 265 mg/dL (75-99)
[2018-12-20] MEDS: PANTOPRAZOLE 40 MG TABLET PO SCH (06:13)
[2018-12-20] MEDS: hydrALAZINE HCL 50 MG TAB PO SCH ×3 (06:13→18:08)
[2018-12-20] MEDS: INSULIN ASPART (NovoLOG) 100 UNIT/ML VIAL SQ SCH ×4 (06:14→21:22)
[2018-12-20] MEDS: FUROSEMIDE 100 MG in SODIUM CHLORIDE 0.9% 90 ML IV SCH ×4 (06:18→22:38)
[2018-12-20 06:49] LABS: Anisocytosis Slight; HCT 24.2 % (34.0-46.0); HGB 8.1 gm/dL (11.4-16.0); Hypochromasia Slight; MCH 28.9 pg (25.0-35.0); MCHC 33.6 g/dL (31.0-37.0); MCV 85.9 fL (80.0-100.0); Mean Platelet Volume 8.6; Platelet Count 358 k/uL (150-450); Poikilocytosis Slight; RBC 2.82 m/uL (3.80-5.40); RDW 16.4 % (11.5-15.5); WBC 12.1 k/uL (3.8-10.6)
[2018-12-20 07:06] LABS: Magnesium 1.9 mg/dL (1.6-2.3); Potassium 3.6 mmol/L (3.5-5.1); Total Bilirubin 0.4 mg/dL (0.2-1.3); Total Protein 6.1 g/dL (6.3-8.2)
[2018-12-20] MEDS: BUDESONIDE 1 MG/2 ML NEBU INHALATION SCH ×2 (07:55→20:24)
[2018-12-20] MEDS: METOPROLOL SUCCINATE (ER) 50 MG TAB.ER.24H PO SCH ×2 (08:16→21:21)
[2018-12-20] MEDS: guaiFENesin 600 MG TABLET.ER PO SCH ×2 (08:16→21:21)
[2018-12-20] MEDS: DILTIAZEM ORAL 60 MG TAB PO SCH ×3 (08:16→21:57)
[2018-12-20] MEDS: INSULIN DETEMIR (LEVEMIR) 100 UNIT/ML SYR SQ SCH ×2 (08:16→21:22)
[2018-12-20] MEDS: LEVOFLOXACIN 250 MG TAB PO SCH (08:16)
[2018-12-20] MEDS: PIPERACILLIN-TAZOBACTAM 3.375 GM in SODIUM CHLORIDE 0.9% 100 ML IVPB SCH ×2 (08:17→21:41)
[2018-12-20] MEDS: ISOSORBIDE MONONITRATE ER 60 MG TAB.ER.24H PO SCH (08:17)
[2018-12-20] MEDS: LORATADINE 10 MG TAB PO SCH (08:17)
[2018-12-20] MEDS: METOLAZONE 5 MG TAB PO SCH (08:17)
[2018-12-20] MEDS: OXYMETAZOLINE 0.05% NASL SPRAY 1 SPRAY BOTTLE NASAL SCH ×2 (08:17→21:20)
[2018-12-20] MEDS: APIXABAN 2.5 MG TABLET PO SCH ×2 (08:17→21:21)
[2018-12-20 10:56] LABS: Glucose,Whole Blood 339 mg/dL (75-99)
--- NOTE | 2018-12-20 12:46 | PN ---
PROGRESS NOTE DATE OF SERVICE: 12/20/2018 Patient is a 63-year-old female who is seen sitting up in a reclining chair, awake, alert. States that her shortness of breath has improved. Patient is afebrile, hemodynamically stable, in no acute distress. PHYSICAL EXAM: VITAL SIGNS: Temp is 97.0, heart rate 75, respiratory rate 20, blood pressure 169/84, O2 saturation 97% on 4 L, O2 via nasal cannula. HEENT. Head is normocephalic, atraumatic. Neck is supple. Trachea is midline. Lung sounds are decreased to the bilateral bases. HEART: S1, S2 are heard. Not tachycardic. ABDOMEN: Soft, obese. Bowel sounds are heard. EXTREMITIES: With 1+ pedal edema. NEUROLOGIC: Patient is awake and alert. LABS: White count is 12.1, hemoglobin is 8.1, hematocrit 24.2 with 358,000 platelets. Sodium is 136, potassium is 3.6, chloride 94, CO2 is 32, anion gap is 10, BUN is 103, creatinine is 2.49, glucose is 234, calcium is 9.0, magnesium is 1.9, total bilirubin 0.4, AST is 19, ALT is 42, alk phos is 77, total protein 6.1, albumin is 3.0. IMAGING: No new imaging to review. IMPRESSION: 1. Severe obstructive sleep apnea with obesity hypoventilation syndrome. 2. Congestive heart failure and cor pulmonale. 3. Acute renal failure. 4. Obesity. PLAN: Continue current medications which have been reviewed. Continue GI and DVT prophylaxis. Continue Lasix drip per Nephrology. Continue to increase activity as tolerated. Will follow patient closely with you making further changes as necessary. MMODL / IJN: [id number] /
--- NOTE | 2018-12-20 14:10 | PN ---
PROGRESS NOTE The patient is seen for followup for acute kidney injury on top of chronic kidney disease. Patient also has severe volume overload and is currently making progress. She is maintained on Lasix drip at 15 mg/hour as well as Zaroxolyn at 10 mg daily. Every day, her swelling seems to be improving. Patient's weight is also down. Overall, she states she is feeling better. She did walk today with therapy which is a significant improvement. PHYSICAL EXAMINATION: On examination, blood pressure was elevated this morning at 159/75, heart rate 78 per minute. Patient is afebrile. EXAMINATION OF THE HEART: S1, S2. EXAMINATION OF THE LUNGS: Decreased breath sounds at the bases. Abdomen is soft, nontender, obese. Examination of lower extremities shows 3+ edema bilaterally. NEUROLOGY TECHNICIAN exam is grossly intact. LABS: Labs show sodium 136, potassium 3.6, chloride 94, BUN 103, serum creatinine 2.49. Hemoglobin 8.1. ASSESSMENT: 1. Acute kidney injury, cardiorenal, currently improving. 2. Severe volume overload. Continue with Lasix drip and Zaroxolyn at the current dose. May need adjustment over the weekend depending on the metabolic alkalosis and volume status. 3. Anemia with severe iron deficiency, maintained on IV iron as well as Aranesp. No active bleeding noted. The patient did receive packed RBCs transfusion. 4. Respiratory failure, acute hypoxic, secondary to congestive heart failure, currently improved. The patient is off of the BiPAP. 5. Chronic kidney disease stage IV secondary to nephrosclerosis and cardiorenal syndrome. Baseline creatinine 1.9 to 2.3 mg/dL. 6. Acute on top of chronic diastolic heart failure. PLAN: Continue with the Lasix drip and Zaroxolyn over the weekend. Patient can most likely go home by Sunday. MMODL / IJN: [id number] /
[2018-12-20 16:37] LABS: Glucose,Whole Blood 274 mg/dL (75-99)
[2018-12-20 21:03] LABS: Glucose,Whole Blood 317 mg/dL (75-99)
[2018-12-20] MEDS: ATORVASTATIN 40 MG TAB PO SCH (21:21)
[2018-12-21] MEDS: FUROSEMIDE 100 MG in SODIUM CHLORIDE 0.9% 90 ML IV SCH ×4 (04:26→23:03)
[2018-12-21] MEDS: IPRATROPIUM-ALBUTEROL 3 ML NEB INHALATION SCH ×6 (04:37→23:13)
[2018-12-21 05:52] LABS: Glucose,Whole Blood 257 mg/dL (75-99)
[2018-12-21] MEDS: PANTOPRAZOLE 40 MG TABLET PO SCH (07:18)
[2018-12-21] MEDS: hydrALAZINE HCL 50 MG TAB PO SCH ×3 (07:19→17:17)
[2018-12-21] MEDS: INSULIN ASPART (NovoLOG) 100 UNIT/ML VIAL SQ SCH ×4 (07:19→23:02)
[2018-12-21] MEDS: BUDESONIDE 1 MG/2 ML NEBU INHALATION SCH ×2 (07:49→19:49)
[2018-12-21] MEDS: DILTIAZEM ORAL 60 MG TAB PO SCH ×3 (08:02→23:00)
[2018-12-21] MEDS: METOLAZONE 5 MG TAB PO SCH (08:02)
[2018-12-21] MEDS: ISOSORBIDE MONONITRATE ER 60 MG TAB.ER.24H PO SCH (08:02)
[2018-12-21] MEDS: APIXABAN 2.5 MG TABLET PO SCH ×2 (08:02→22:59)
[2018-12-21] MEDS: guaiFENesin 600 MG TABLET.ER PO SCH ×2 (08:02→23:00)
[2018-12-21] MEDS: OXYMETAZOLINE 0.05% NASL SPRAY 1 SPRAY BOTTLE NASAL SCH ×2 (08:03→23:14)
[2018-12-21] MEDS: LORATADINE 10 MG TAB PO SCH (08:03)
[2018-12-21] MEDS: METOPROLOL SUCCINATE (ER) 50 MG TAB.ER.24H PO SCH ×2 (08:03→23:00)
[2018-12-21] MEDS: INSULIN DETEMIR (LEVEMIR) 100 UNIT/ML SYR SQ SCH ×2 (08:18→23:01)
--- NOTE | 2018-12-21 09:41 | PN ---
PROGRESS NOTE DATE OF SERVICE: 12/20/2018 This 63-year-old woman is admitted with multiple medical problems including CHF acute exacerbation, still on Lasix drip, Dr. John and Cardiology following the patient. No chest pain. No palpitations. No fever. PT, OT is also evaluating for possible ECF rehab even though the patient wants to return home. PHYSICAL EXAM: Alert and oriented times three. Pulse 73, blood pressure 164/77, respiration 20, temperature 97.2, pulse ox 97% on room air. HEENT: Conjunctivae normal. NECK: No jugular venous distention. CARDIOVASCULAR: S1, S2. RESPIRATIONS: Breath sounds diminished in the bases. A few scattered rhonchi and crackles. ABDOMEN: Soft. Legs: Minimal edema. Nervous system: No focal deficits. LAB STUDIES: WBC 12.8, hemoglobin 8.1. Accu-Cheks 265. ASSESSMENT: 1. Congestive heart failure, acute exacerbation with acute on chronic diastolic dysfunction, ejection fraction 50 to 60% with slow improvement. 2. Bilateral pneumonia possibly gram-negative. 3. Acute hypoxic respiratory failure secondary to above, on BiPAP on and off, currently on high-flow nasal cannula. 4. Acute kidney injury, possibly secondary to congestive heart failure acute exacerbation as well as possible acute cardiorenal syndrome. 5. Nausea, vomiting, possible acute gastroenteritis. 6. Gait dysfunction. 7. Diabetes mellitus type 2. 8. History of coronary artery disease. 9. Hypertension. 10.Hyperlipidemia. 11.Anemia, normocytic anemia of chronic disease. RECOMMENDATIONS AND DISCUSSION: Recommend to continue medications, monitoring and symptomatic treatment. Otherwise, at this time, I recommend continue with Lasix and diuretics. Monitor fluid and electrolytes balance closely. Closely follow with Nephrology. Further recommendations to follow. MMODL / IJN: [id number] /
--- NOTE | 2018-12-21 11:22 | P.PN ---
Subjective Patient is seen in follow-up for acute kidney injury on chronic kidney disease. Patient has chronic kidney disease stage IV secondary to diabetic kidney disease and cardiorenal syndrome. Baseline creatinine recently has been in the range of 1.8-2.3. Creatinine 2.49 as of yesterday. Admits to good urine output. Edema is improving. She is maintained on Lasix drip as well as metolazone. Vital signs are stable. General: The patient appeared well nourished and normally developed. HEENT: Head exam is unremarkable. Neck is without jugular venous distension. LUNGS: Breath sounds decreased. HEART: Rate and Rhythm are regular. First and second heart sounds normal. No murmurs, rubs or gallops. ABDOMEN: Abdominal exam reveals normal bowel sounds. Non-tender and non- distended. No evidence of peritonitis. EXTREMITITES: 1+ edema. Objective - Vital Signs Vital signs: Vital Signs Temp 97.3 F L 12/21/18 08:21 Pulse 73 12/21/18 08:21 Resp 20 12/21/18 08:21 BP 167/62 12/21/18 08:21 Pulse Ox 96 12/21/18 08:21 Intake & Output 12/20/18 12/21/18 12/21/18 18:59 06:59 18:59 Intake Total 784.25 904.75 264.25 Output Total 2376 2400 1 Balance -1591.75 -1495.25 263.25 Weight 127.6 kg Intake: IV 235 Furosemide 100 mg In 135 Sodium Chloride 0.9% 90 ml @ 15 MG/HR 15 mls/hr IV .Q6H40M ELISABETH Rx#: [id number] Piperacillin-Tazobactam 3 100 .375 gm In Sodium Chloride 0.9% 100 ml @ 25 mls/hr IVPB Q12HR ELISABETH Rx #:[id number] Intake, IV Titration 162.25 169.75 84.25 Amount Furosemide 100 mg In 162.25 169.75 84.25 Sodium Chloride 0.9% 90 ml @ 15 MG/HR 15 mls/hr IV .Q6H40M ELISABETH Rx#: [id number] Oral 622 500 180 Output: Urine 2375 2400 Stool 1 1 Other: Voiding Method Bedside Commode Bedside Commode Bedside Commode # Voids 3 2 # Bowel Movements 1 1 - Labs CBC & Chem 7: 12/20/18 06:06 12/20/18 06:06 Labs: Abnormal Lab Results - Last 24 Hours (Table) 12/20/18 12/20/18 12/21/18 Range/Units 16:36 20:56 05:50 POC Glucose (mg/dL) 274 H 317 H 257 H (75-99) mg/dL Assessment and Plan Plan: Assessment: 1. Acute kidney injury mostly prerenal secondary to cardiorenal syndrome and hemodynamic instability. Creatinine 2.49 as of yesterday. 2. Chronic kidney disease stage IV secondary to diabetic kidney disease and cardiorenal syndrome with baseline creatinine recently the range of 1.9-2.3. 3. Volume overload maintained on Lasix drip and metolazone. 4. Diastolic CHF. 5. Insulin-dependent diabetes mellitus. 6. Hypertension with chronic kidney disease. Stable. 7. Acute hypoxic respiratory failure secondary to volume overload. 8. Atrial fibrillation with RVR maintained on Cardizem and Lopressor. 9. Anemia of chronic kidney disease maintained on Aranesp. Plan: Maintain Lasix drip and metolazone. Strict is and os. Low-salt diet. 1500 mL fluid restriction. Daily weights. Morning labs pending.
[2018-12-21 12:07] LABS: Glucose,Whole Blood 326 mg/dL (75-99)
--- NOTE | 2018-12-21 12:19 | PN ---
PROGRESS NOTE She was seen on 12/21/2018. She has been hemodynamically stable. Her oxygen requirements have declined. She is only on 3 L of nasal cannula back in the 90. On physical examination her blood pressure is 167/63, respiratory rate 18, pulse rate of 68, temperature 97.3, O2 SAT on 3 L nasal cannula is 96%. HEENT is unremarkable. Chest reveals decreased breath sounds at bases. Cardiovascular system reveals S1, S2. Abdomen is soft. There is 1+ to 2+ pedal edema. BUN is 103, creatinine of 2.49. White count 12.1, hemoglobin of 8.1. IMPRESSION: 1. Acute on chronic respiratory failure. 2. Obesity with obesity hypoventilation. 3. Acute renal failure with a component of prerenal azotemia. 4. Congestive heart failure with cor pulmonale. Optimize her oxygen requirements by keeping her on nasal cannula and using BiPAP at night and while asleep. Continue the current medications. Optimize the fluid status. Depending on how she does, , MMODL / IJN: [id number] /
[2018-12-21 13:38] LABS: Calcium 9.2 mg/dL (8.4-10.2); Magnesium 1.9 mg/dL (1.6-2.3); Potassium 3.6 mmol/L (3.5-5.1)
[2018-12-21 15:09] VITALS: BMI 44.0
[2018-12-21 16:41] LABS: Glucose,Whole Blood 321 mg/dL (75-99)
[2018-12-21 20:57] LABS: Glucose,Whole Blood 335 mg/dL (75-99)
--- NOTE | 2018-12-21 22:35 | PN ---
PROGRESS NOTE DATE OF SERVICE: 12/21/2018 This 63-year-old woman was admitted with COPD acute exacerbation is improving significantly. Patient is still on diuretic drip. No chest pain. No palpitations. No seizures. Multiple consultants are following the patient closely. EXAM: Alert and oriented times three. Pulse 74, blood pressure 159/80, respiration 18, temperature 98.2, pulse ox 97% on 3 L. HEENT: Conjunctivae normal. Neck: No jugular venous distention. CARDIOVASCULAR: S1, S2 muffled. Respiration: Breath sounds diminished in the bases. A few scattered rhonchi and crackles. Abdomen is soft, nontender. Legs are no edema, no swelling. LABS: Creatinine 2.53, otherwise WBC 12.9, hemoglobin is 8.1. ASSESSMENT: 1. Congestive heart failure acute exacerbation acute on chronic diastolic dysfunction, ejection fraction 55 to 60% with slow improvement, on IV Lasix drip at 15 per hour. 2. Bilateral pneumonia possibly gram-negative. 3. Acute hypoxic respiratory failure secondary to above on BiPAP, currently on nasal cannula. 4. Acute kidney injury, possibly secondary to congestive heart failure acute exacerbation as well as possible acute cardiorenal syndrome. 5. Nausea, vomiting, possible acute gastroenteritis. 6. Gait dysfunction. 7. Diabetes mellitus type 2. 8. History of coronary artery disease. 9. Hypertension. 10.Hyperlipidemia. 11.Anemia, normocytic anemia of chronic disease. RECOMMENDATIONS AND DISCUSSION: Recommend to continue current medications, management and symptomatic treatment. Otherwise continue the diuretics. Monitor fluid and electrolyte balance closely. Closely follow with multiple consultants. Prognosis guarded. Further recommendations to follow. MMODL / IJN: [id number] /
[2018-12-21] MEDS: ATORVASTATIN 40 MG TAB PO SCH (22:59)
[2018-12-22] MEDS: IPRATROPIUM-ALBUTEROL 3 ML NEB INHALATION SCH ×6 (03:37→23:50)
[2018-12-22 06:03] LABS: Glucose,Whole Blood 332 mg/dL (75-99)
[2018-12-22] MEDS: hydrALAZINE HCL 50 MG TAB PO SCH ×3 (06:40→16:45)
[2018-12-22] MEDS: INSULIN ASPART (NovoLOG) 100 UNIT/ML VIAL SQ SCH ×4 (06:40→23:21)
[2018-12-22] MEDS: PANTOPRAZOLE 40 MG TABLET PO SCH (06:40)
[2018-12-22] MEDS: FUROSEMIDE 100 MG in SODIUM CHLORIDE 0.9% 90 ML IV SCH ×2 (06:41→19:00)
[2018-12-22 06:45] VITALS: RESP 18
[2018-12-22 07:10] LABS: Anisocytosis Slight; Basophils # (A) 0.1 k/uL (0-0.2); Basophils % (A) 1 %; Eosinophils # (A) 0.6 k/uL (0-0.7); Eosinophils % (A) 5 %; HCT 25.3 % (34.0-46.0); HGB 8.7 gm/dL (11.4-16.0); Hypochromasia Slight; Lymphocytes % (A) 9 %; MCH 29.5 pg (25.0-35.0); MCHC 34.4 g/dL (31.0-37.0); MCV 85.7 fL (80.0-100.0); Mean Platelet Volume 9.6; Monocytes # (A) 0.6 k/uL (0-1.0); Monocytes % (A) 6 %; Neutrophils # (A) 8.8 k/uL (1.3-7.7); Neutrophils % (A) 78 %; Platelet Count 334 k/uL (150-450); Poikilocytosis Slight; RBC 2.95 m/uL (3.80-5.40); RDW 17.5 % (11.5-15.5); WBC 11.2 k/uL (3.8-10.6)
[2018-12-22 07:16] LABS: Calcium 9.1 mg/dL (8.4-10.2); Magnesium 1.9 mg/dL (1.6-2.3); Potassium 3.7 mmol/L (3.5-5.1)
[2018-12-22] MEDS: INSULIN DETEMIR (LEVEMIR) 100 UNIT/ML SYR SQ SCH ×2 (07:52→23:20)
[2018-12-22] MEDS: LORATADINE 10 MG TAB PO SCH (07:53)
[2018-12-22] MEDS: APIXABAN 2.5 MG TABLET PO SCH ×2 (07:53→23:19)
[2018-12-22] MEDS: METOPROLOL SUCCINATE (ER) 50 MG TAB.ER.24H PO SCH ×2 (07:53→23:20)
[2018-12-22] MEDS: DILTIAZEM ORAL 60 MG TAB PO SCH ×3 (07:53→23:20)
[2018-12-22] MEDS: ISOSORBIDE MONONITRATE ER 60 MG TAB.ER.24H PO SCH (07:53)
[2018-12-22] MEDS: METOLAZONE 5 MG TAB PO SCH (07:53)
[2018-12-22] MEDS: LEVOFLOXACIN 250 MG TAB PO SCH (07:53)
[2018-12-22] MEDS: guaiFENesin 600 MG TABLET.ER PO SCH ×2 (07:53→23:21)
[2018-12-22] MEDS: OXYMETAZOLINE 0.05% NASL SPRAY 1 SPRAY BOTTLE NASAL SCH (08:01)
[2018-12-22] MEDS: BUDESONIDE 1 MG/2 ML NEBU INHALATION SCH ×2 (09:10→20:17)
--- NOTE | 2018-12-22 09:32 | P.PN ---
Subjective Patient is seen in follow-up for acute kidney injury on chronic kidney disease. Patient has chronic kidney disease stage IV secondary to diabetic kidney disease and cardiorenal syndrome. Baseline creatinine recently has been in the range of 1.8-2.3. Creatinine 2.4 today. Admits to good urine output. Edema is improving. She is maintained on Lasix drip as well as metolazone. Overall feels better. Vital signs are stable. General: The patient appeared well nourished and normally developed. HEENT: Head exam is unremarkable. Neck is without jugular venous distension. LUNGS: Breath sounds decreased. HEART: Rate and Rhythm are regular. First and second heart sounds normal. No murmurs, rubs or gallops. ABDOMEN: Abdominal exam reveals normal bowel sounds. Non-tender and non- distended. No evidence of peritonitis. EXTREMITITES: 1+ edema. Objective - Vital Signs Vital signs: Vital Signs Temp 98.6 F 12/22/18 08:00 Pulse 71 12/22/18 08:02 Resp 18 12/22/18 08:02 BP 150/66 12/22/18 08:00 Pulse Ox 96 12/22/18 08:00 Intake & Output 12/21/18 12/22/18 12/22/18 18:59 06:59 18:59 Intake Total 714.75 200 60 Output Total 2000 1303 800 Balance -1286.25 -1103 -740 Weight 127.6 kg 126.2 kg Intake: IV 60 60 0.9 NS @ 5mL/hr 60 60 Intake, IV Titration 174.75 200 Amount Furosemide 100 mg In 174.75 200 Sodium Chloride 0.9% 90 ml @ 15 MG/HR 15 mls/hr IV .Q6H40M [facility] Rx#: [id number] Oral 480 0 Output: Urine 1999 1300 800 Stool 1 3 Other: Voiding Method Bedside Commode Bedside Commode Bedside Commode # Voids 5 3 3 # Bowel Movements 1 1 - Labs CBC & Chem 7: 12/22/18 06:22 12/22/18 06:22 Labs: Abnormal Lab Results - Last 24 Hours (Table) 12/21/18 12/21/18 12/21/18 Range/Units 12:06 12:16 16:39 WBC (3.8-10.6) k/uL RBC (3.80-5.40) m/uL Hgb (11.4-16.0) gm/dL Hct (34.0-46.0) % RDW (11.5-15.5) % Neutrophils # (1.3-7.7) k/uL Sodium 136 L (137-145) mmol/L Chloride 90 L (98-107) mmol/L Carbon Dioxide 35 H (22-30) mmol/L BUN 97 H (7-17) mg/dL Creatinine 2.53 H (0.52-1.04) mg/dL Glucose 289 H (74-99) mg/dL POC Glucose (mg/dL) 326 H 321 H (75-99) mg/dL 12/21/18 12/22/18 12/22/18 Range/Units 20:46 06:01 06:22 WBC (3.8-10.6) k/uL RBC (3.80-5.40) m/uL Hgb (11.4-16.0) gm/dL Hct (34.0-46.0) % RDW (11.5-15.5) % Neutrophils # (1.3-7.7) k/uL Sodium 135 L (137-145) mmol/L Chloride 90 L (98-107) mmol/L Carbon Dioxide 35 H (22-30) mmol/L BUN 93 H (7-17) mg/dL Creatinine 2.40 H (0.52-1.04) mg/dL Glucose 294 H (74-99) mg/dL POC Glucose (mg/dL) 335 H 332 H (75-99) mg/dL 12/22/18 Range/Units 06:22 WBC 11.2 H (3.8-10.6) k/uL RBC 2.95 L (3.80-5.40) m/uL Hgb 8.7 L (11.4-16.0) gm/dL Hct 25.3 L (34.0-46.0) % RDW 17.5 H (11.5-15.5) % Neutrophils # 8.8 H (1.3-7.7) k/uL Sodium (137-145) mmol/L Chloride (98-107) mmol/L Carbon Dioxide (22-30) mmol/L BUN (7-17) mg/dL Creatinine (0.52-1.04) mg/dL Glucose (74-99) mg/dL POC Glucose (mg/dL) (75-99) mg/dL Assessment and Plan Plan: Assessment: 1. Acute kidney injury mostly prerenal secondary to cardiorenal syndrome and hemodynamic instability. Renal function stable. Creatinine 2.4 today. 2. Chronic kidney disease stage IV secondary to diabetic kidney disease and cardiorenal syndrome with baseline creatinine recently the range of 1.9-2.3. 3. Volume overload maintained on Lasix drip and metolazone. 4. Diastolic CHF. 5. Insulin-dependent diabetes mellitus. 6. Hypertension with chronic kidney disease. Stable. 7. Acute hypoxic respiratory failure secondary to volume overload. 8. Atrial fibrillation with RVR maintained on Cardizem and Lopressor. 9. Anemia of chronic kidney disease maintained on Aranesp. Plan: Maintain Lasix drip and metolazone - can be transitioned over to oral diuretics tomorrow. Strict is and os. Low-salt diet. 1500 mL fluid restriction. Daily weights.
[2018-12-22 11:29] LABS: Glucose,Whole Blood 285 mg/dL (75-99)
--- NOTE | 2018-12-22 12:21 | PN ---
PROGRESS NOTE DATE OF SERVICE: 12/22/2018 Patient is a 63-year-old female who is seen sitting up in a chair, awake, alert. No complaints. Does feel better today. Patient is hoping to go home maybe tomorrow. The patient does remain on a Lasix drip, is hemodynamically stable. Afebrile, in no acute distress. PHYSICAL EXAM: Vital signs, temp 98.6, heart rate is 71, respiratory rate is 18, blood pressure is 150/66, O2 sats 96% on 2 L O2 via nasal cannula. HEENT: Head is normocephalic, atraumatic. Neck is supple. Trachea is midline. LUNGS: Decreased at the bilateral bases. HEART: S1, S2 are heard. Not tachycardic. ABDOMEN: Soft, obese. Bowel sounds are heard. EXTREMITIES: With 1+ edema bilaterally. NEUROLOGIC: Patient is awake and alert. LABS: White count 11.2, hemoglobin is 8.7, hematocrit 25.3 with 334,000 platelets. Sodium is 135, potassium is 3.7, chloride 90, CO2 is 35, anion gap is 10, BUN is 93, creatinine is 2.40, glucose is 294, calcium is 9.1, magnesium is 1.9. No new imaging to review. IMPRESSION: 1. Acute on chronic respiratory failure. 2. Obesity with obesity hypoventilation. 3. Acute renal failure with a component of prerenal azotemia. 4. Congestive heart failure with cor pulmonale. PLAN: I will continue current medications which have been reviewed. Continue using BiPAP at night and anytime during sleep. Continue bronchodilators and aerosol steroids. Continue GI and DVT prophylaxis. Increase activity as tolerated. We will follow patient closely with you making further changes as necessary. Patient seen by Dr. Jarvis Covington covering for Dr. Toy Cortés. I performed a History & Physical Examination of the patient and discussed their management with nurse practitioner. I reviewed the nurse practitioner's note and agree with the documented findings and plan of care. MMODL / IJN: [id number] / MTDD
[2018-12-22 16:22] LABS: Glucose,Whole Blood 316 mg/dL (75-99)
--- NOTE | 2018-12-22 19:32 | PN ---
PROGRESS NOTE DATE OF SERVICE: 12/22/2018 This 63-year-old woman presented with multiple medical issues, was admitted with CHF acute exacerbation. Patient also has bilateral pneumonia. The patient is on diuretics. No chest pain. No palpitations. No fever. EXAM: Alert and oriented x3. Pulse is 82, blood pressure 157/69, respiration 18, temperature 97.4, pulse ox 94% on 2 L. HEENT: Conjunctivae normal. NECK: No jugular venous distention. CARDIOVASCULAR: S1, S2 muffled. RESPIRATORY: Breath sounds diminished in the bases. A few scattered rhonchi and crackles. ABDOMEN: Soft, obese, nontender. LEGS: Bilateral leg edema. NERVOUS SYSTEM: No focal deficits. LABS: WBC 11.2, hemoglobin is 8.7, creatinine is 2.40. ASSESSMENT: 1. Congestive heart failure acute exacerbation with acute on chronic diastolic dysfunction, ejection fraction 50-60 percent with slow improvement on IV Lasix drip at 15 mg/hour. 2. Bilateral pneumonia possibly gram-negative. 3. Acute hypoxic respiratory failure secondary to above was on and off BiPAP, currently on nasal cannula. 4. Acute kidney injury, possibly secondary to congestive heart failure acute exacerbation as well as possible acute cardiorenal syndrome. 5. Nausea, vomiting, possible acute gastroenteritis. 6. Gait dysfunction. 7. Diabetes mellitus type 2. 8. History of coronary artery disease. 9. Hypertension. 10.Hyperlipidemia. 11.Anemia, normocytic anemia of chronic disease. RECOMMENDATIONS AND DISCUSSION: I recommend to continue current medications, continue monitoring, and symptomatic treatment. Continue with Lasix. The drip may be stopped per Cardiology. Increase ambulation. PT, OT evaluation. Possible home with home care. Further recommendations to follow. MMODL / IJN: [id number] /
[2018-12-22 20:23] LABS: Glucose,Whole Blood 319 mg/dL (75-99)
[2018-12-22] MEDS: ATORVASTATIN 40 MG TAB PO SCH (23:20)
[2018-12-23] MEDS: IPRATROPIUM-ALBUTEROL 3 ML NEB INHALATION SCH ×3 (03:22→10:59)
[2018-12-23 06:16] LABS: Glucose,Whole Blood 307 mg/dL (75-99)
[2018-12-23 06:31] VITALS: TEMP 97.9
[2018-12-23] MEDS: hydrALAZINE HCL 50 MG TAB PO SCH ×3 (06:44→15:51)
[2018-12-23] MEDS: PANTOPRAZOLE 40 MG TABLET PO SCH (06:44)
[2018-12-23] MEDS: INSULIN ASPART (NovoLOG) 100 UNIT/ML VIAL SQ SCH ×2 (06:44→11:52)
[2018-12-23] MEDS: FUROSEMIDE 100 MG in SODIUM CHLORIDE 0.9% 90 ML IV SCH (06:45)
[2018-12-23] MEDS: OXYMETAZOLINE 0.05% NASL SPRAY 1 SPRAY BOTTLE NASAL SCH ×2 (06:47→09:01)
[2018-12-23 07:02] LABS: Basophils # (A) 0.1 k/uL (0-0.2); Basophils % (A) 1 %; Eosinophils # (A) 0.5 k/uL (0-0.7); Eosinophils % (A) 5 %; HCT 26.6 % (34.0-46.0); HGB 8.7 gm/dL (11.4-16.0); Lymphocytes % (A) 9 %; MCH 28.7 pg (25.0-35.0); MCHC 32.8 g/dL (31.0-37.0); MCV 87.6 fL (80.0-100.0); Mean Platelet Volume 6.7; Monocytes # (A) 0.5 k/uL (0-1.0); Monocytes % (A) 5 %; Neutrophils # (A) 8.3 k/uL (1.3-7.7); Neutrophils % (A) 79 %; Platelet Count 366 k/uL (150-450); Poikilocytosis Slight; RBC 3.03 m/uL (3.80-5.40); RDW 15.3 % (11.5-15.5); WBC 10.5 k/uL (3.8-10.6)
[2018-12-23 07:12] LABS: Calcium 9.1 mg/dL (8.4-10.2); Potassium 3.8 mmol/L (3.5-5.1)
[2018-12-23] MEDS: BUDESONIDE 1 MG/2 ML NEBU INHALATION SCH (07:14)
[2018-12-23] MEDS: METOPROLOL SUCCINATE (ER) 50 MG TAB.ER.24H PO SCH (08:59)
[2018-12-23] MEDS: ISOSORBIDE MONONITRATE ER 60 MG TAB.ER.24H PO SCH (08:59)
[2018-12-23] MEDS: DILTIAZEM ORAL 60 MG TAB PO SCH ×2 (08:59→15:51)
[2018-12-23] MEDS: METOLAZONE 5 MG TAB PO SCH (09:00)
[2018-12-23] MEDS: APIXABAN 2.5 MG TABLET PO SCH (09:00)
[2018-12-23] MEDS: LORATADINE 10 MG TAB PO SCH (09:00)
[2018-12-23] MEDS: guaiFENesin 600 MG TABLET.ER PO SCH (09:00)
[2018-12-23 11:52] LABS: Glucose,Whole Blood 318 mg/dL (75-99)
[2018-12-23] MEDS: INSULIN DETEMIR (LEVEMIR) 100 UNIT/ML SYR SQ SCH (11:52)
--- NOTE | 2018-12-23 12:58 | PN ---
PROGRESS NOTE Patient is seen for followup for acute kidney injury on top of chronic kidney disease and severe volume overload. Volume status has improved significantly. Patient's weight is down to 125 kg from an initial peak at 138. She wants to go home. She has been maintained on Lasix drip along with metolazone. The patient will be discharged home on 60 mg b.i.d. of oral Lasix and Zaroxolyn 10 mg daily. We will see her in the office for followup in about 1 week's time and patient is advised to monitor her weight at home. PHYSICAL EXAMINATION: On examination this morning, blood pressure was 152/71, heart rate 76 per minute. She is afebrile. EXAMINATION OF THE HEART: S1, S2. EXAMINATION OF THE LUNGS: Bilateral breath sounds are heard. Abdomen is soft, nontender, obese. Examination of the lower extremities shows significant improvement in the edema. FORGE [employer] exam is grossly intact. LABS: Labs show sodium 136, potassium 3.8, BUN 96, serum creatinine 2.34. Hemoglobin 8.7 g/dL. ASSESSMENT: 1. Acute kidney injury mainly cardiorenal, currently significantly improved with creatinine down from 3.7 to 2.34 now. 2. Volume overload. Continuously improving. May DC the Lasix drip today. 3. Chronic kidney disease NKF stage 4 secondary to nephrosclerosis and cardiorenal syndrome. 4. Acute on top of chronic diastolic heart failure. 5. Severe iron deficiency, maintained on IV iron. 6. Anemia secondary to iron deficiency, status post 1 unit packed RBCs transfusion as well. PLAN: Patient can be discharged home on 60 mg p.o. b.i.d. of Lasix and Zaroxolyn 10 mg daily. She will follow up as outpatient in about 1 week's time. MMODL / IJN: [id number] /
[2018-12-23] MEDS ORDERED: FUROSEMIDE 20 MG TAB PO SCH (16:00)
--- NOTE | 2018-12-23 16:23 | P.PN ---
Subjective Progress Note Date: 12/23/18 12/23/2018: Patient seen and examined. Patient is sitting up in the chair on room air. O2 saturation is 93%. The patient states she did ambulate in the hallway and her oxygen desaturated to 86%. The patient is aware that she will need oxygen with exertion. She is fully educated on this and is agreeable to home oxygen. Objective - Vital Signs Vital signs: Vital Signs Temp 97.9 F 12/23/18 04:00 Pulse 80 12/23/18 12:00 Resp 18 12/23/18 12:00 BP 166/72 12/23/18 12:00 Pulse Ox 93 L 12/23/18 12:00 Intake & Output 12/22/18 12/23/18 12/23/18 18:59 06:59 18:59 Intake Total 340 100 480 Output Total 2300 1203 1 Balance -1960 -1103 479 Weight 125.7 kg Intake: IV 60 0.9 NS @ 5mL/hr 60 Intake, IV Titration 100 100 Amount Furosemide 100 mg In 100 100 Sodium Chloride 0.9% 90 ml @ 15 MG/HR 15 mls/hr IV .Q6H40M [facility] Rx#: [id number] Oral 180 480 Output: Urine 2300 1200 Stool 3 1 Other: Voiding Method Bedside Commode Bedside Commode # Voids 3 0 # Bowel Movements 1 0 - Exam Gen.: Patient is alert and oriented 3, no acute distress, morbidly obese Cardiovascular: Regular rate and rhythm, S1/S2 Lungs: Diminished breath sounds with bilateral crackles Abdomen: Soft nontender nondistended positive bowel sounds Extremities: + Edema - Labs CBC & Chem 7: 12/23/18 06:07 12/23/18 06:07 Labs: Abnormal Lab Results - Last 24 Hours (Table) 12/22/18 12/22/18 12/23/18 Range/Units 16:19 20:21 06:07 RBC 3.03 L (3.80-5.40) m/uL Hgb 8.7 L (11.4-16.0) gm/dL Hct 26.6 L (34.0-46.0) % Neutrophils # 8.3 H (1.3-7.7) k/uL Sodium (137-145) mmol/L Chloride (98-107) mmol/L Carbon Dioxide (22-30) mmol/L BUN (7-17) mg/dL Creatinine (0.52-1.04) mg/dL Glucose (74-99) mg/dL POC Glucose (mg/dL) 316 H 319 H (75-99) mg/dL 12/23/18 12/23/18 12/23/18 Range/Units 06:07 06:15 11:49 RBC (3.80-5.40) m/uL Hgb (11.4-16.0) gm/dL Hct (34.0-46.0) % Neutrophils # (1.3-7.7) k/uL Sodium 136 L (137-145) mmol/L Chloride 89 L (98-107) mmol/L Carbon Dioxide 36 H (22-30) mmol/L BUN 96 H (7-17) mg/dL Creatinine 2.34 H (0.52-1.04) mg/dL Glucose 277 H (74-99) mg/dL POC Glucose (mg/dL) 307 H 318 H (75-99) mg/dL Assessment and Plan Assessment: Acute hypoxic respiratory failure Acute exacerbation of diastolic congestive heart failure Pulmonary edema NSTEMI type 2 due to supply-demand mismatch Obstructive sleep apnea compliant with CPAP Gastroenteritis Anemia, normochromic, normcytic, chronic History of mild pulmonary hypertension with RVSP 41 mmHg, appears to be improving on most recent echo Acute kidney injury on chronic kidney disease stage IV Cardiorenal syndrome Diabetes mellitus type 2 History of coronary artery disease status post PCI Morbid obesity Hypertension Dyslipidemia Mild PCM O2 to maintain saturation greater than or equal to 90% Duo nebs Pulmicort -0.5 BID I's and O's and daily weights Aggressive Diuresis Eliquis Incentive spirometry and pulmonary hygiene Cardiology and nephrology recommendations Zosyn and Levaquin Mucinex PT and OT Rx for home O2 placed on chart, ok to DC from pulmonary standpoint. Follow up 2-3 days
[2018-12-23 16:39] VITALS: BP 168/77; PULSE 78
--- NOTE | 2018-12-24 06:08 | DS ---
DISCHARGE SUMMARY DATE OF SERVICE: 12/23/2018 FINAL DIAGNOSES: 1. Congestive heart failure acute exacerbation with acute on chronic diastolic dysfunction, ejection fraction 50% to 60% with slow improvement, status post IV Lasix drip. 2. Bilateral pneumonia, possibly gram-negative. 3. Acute hypoxic respiratory failure secondary to above, was on and off BiPAP. 4. Acute kidney injury, possibly secondary to congestive heart failure acute exacerbation as well as possible acute cardiorenal syndrome. 5. Nausea, vomiting, possible acute gastroenteritis. 6. Gait dysfunction. 7. Diabetes mellitus type 2. 8. History of coronary artery disease. 9. Hypertension. 10.Hyperlipidemia. 11.History of anemia, normocytic anemia of chronic disease. DISCHARGE DISPOSITION: The patient will be discharged in stable condition with guarded prognosis. Total time taken 35 minutes. HISTORY OF PRESENT ILLNESS: This 63-year-old woman with a past medical history of multiple medical problems admitted with COPD, pneumonia and multiple other medical problems. Patient treated aggressively with IV Lasix drip. Nephrology saw the patient. Patient improved significantly. Multiple consultants were involved with the patient including pulmonology. On exam, vitals are stable. CARDIOVASCULAR: S1, S2 muffled. RESPIRATION: A few scattered rhonchi. ABDOMEN: Soft. NERVOUS SYSTEM: No focal deficit. Labs showed creatinine is 2.34, hemoglobin 8.7. DISCHARGE ADVICE AND MEDICATIONS: 1. Diet is cardiac diet. 2. Activity is limited until followup. 3. Follow up with Dr. Gale Amin in 2 to 3 days. 4. Follow up with Dr. Barajas as advised. 5. Follow up with Cardiology and Nephrology as advised. Medications are prior to admission include: 1. Lispro 15 units subcu t.i.d. 2. Lispro with t.i.d. 3. Apresoline 50 mg with meals. 4. Aspirin 81 mg daily. 5. Claritin 10 mg p.o. b.i.d. 6. Imdur 60 mg p.o. daily. 7. Iron sulfate 325 mg p.o. daily. 8. Lantus 45 units subcu b.i.d. 9. Toprol XL 75 mg p.o. b.i.d. 10.Victoza 0.6 daily. 11.Drisdol 50,000 p.o. Sunday. 12.Aranesp 60 mcg q.7 days. 13.Cardizem 60 mg p.o. t.i.d. 14.Eliquis 2.5 mg p.o. b.i.d. 15.Lasix 60 mg p.o. b.i.d. 16.Levaquin 250 mg p.o. q.48 hours. 17.Lipitor 40 mg q.h.s. 18.MiraLAX 17 grams daily p.r.n. 19.Mucinex 1200 mg p.o. b.i.d. 20.ProAir HFA 2 puffs q.6 p.r.n. 21.Protonix 40 mg daily. 22.Symbicort 160/4.5 one puff b.i.d. 23.Tylenol p.r.n. 24.Zaroxolyn 10 mg p.o. daily. Once again, the patient will be discharged in a stable condition with guarded prognosis. MMODL / IJN: [id number] /
--- NOTE | 2018-12-24 07:14 | CDI ---
Documentation Clarification Form Date: 12/24/2018 7:00:42 AM From: Kayley Mathis Phone: If you have a question about this query, please contact Bee Strickland, Tank Calibrator at [phone] between 8am and 5pm. Admit Date: 12/09/2018 3:39:00 PM Patient Name: Loreta Beach Visit Number: [id number] Discharge Date: 12/23/2018 3:55:00 PM ATTENTION: The Clinical Documentation Specialists (CDI) and [facility] Coding Staff appreciate your assistance in clarifying documentation. Please respond to the clarification below the line at the bottom and electronically sign. The CDI & [facility] Coding staff will review the response and follow-up if needed. Please note: Queries are made part of the Legal Health Record. If you have any questions, please contact the author of this message via ITS. Dr. Aylin Seymour Conflicting documentation has been found in the medical record: Pulmonology documents NSTEMI Type II supply demand mismatch. and cardiology consult documents elevated troponins due to hypoxia. History/Risk Factors: cardiorenal syndrome A/C jefferson CHF CKD IV. ARF, DM, DEN Clinical Indicators: Elevated troponins .049, .074, .059 In your opinion, what is the most clinically appropriate diagnosis for this patient? NSTEMI Type 2 NSTEMI Type 2 ruled out Other explanation of clinical findings Unable to determine (no explanation for clinical findings) NSTEMI Type 2 MTDD
== END 2018-12-23 15:55 | disposition home health service (06) | DRG 280 ==
LOC: EC 10:22 → 3SCARD 15:39
PROVIDERS: ADMIT Hospitalist; ATTEND Hospitalist
PROC: 5A09357 Assistance with Respiratory Ventilation, Less than 24 Consecutive Hours, Continuous Positive Airway Pressure (ICD-10-PCS; principal; 2018-12-09)
DX: I13.0 Hypertensive heart and chronic kidney disease with heart failure and stage 1 through stage 4 chronic kidney disease, or unspecified chronic kidney disease (principal); I50.33 Acute on chronic diastolic (congestive) heart failure; I21.A1 Myocardial infarction type 2; J15.6 Pneumonia due to other Gram-negative bacteria; J96.21 Acute and chronic respiratory failure with hypoxia; E44.1 Mild protein-calorie malnutrition; Z68.41 Body mass index [BMI] 40.0-44.9, adult; E66.2 Morbid (severe) obesity with alveolar hypoventilation; J44.0 Chronic obstructive pulmonary disease with (acute) lower respiratory infection; J44.1 Chronic obstructive pulmonary disease with (acute) exacerbation; N17.9 Acute kidney failure, unspecified; N18.4 Chronic kidney disease, stage 4 (severe); D50.9 Iron deficiency anemia, unspecified; D63.1 Anemia in chronic kidney disease; E11.22 Type 2 diabetes mellitus with diabetic chronic kidney disease; E11.40 Type 2 diabetes mellitus with diabetic neuropathy, unspecified; Z79.4 Long term (current) use of insulin; E78.5 Hyperlipidemia, unspecified; F41.9 Anxiety disorder, unspecified; I25.10 Atherosclerotic heart disease of native coronary artery without angina pectoris; I25.2 Old myocardial infarction; I27.29 Other secondary pulmonary hypertension; I27.81 Cor pulmonale (chronic); I48.0 Paroxysmal atrial fibrillation; K21.9 Gastro-esophageal reflux disease without esophagitis; K52.9 Noninfective gastroenteritis and colitis, unspecified; R04.0 Epistaxis; T50.2X5A Adverse effect of carbonic-anhydrase inhibitors, benzothiadiazides and other diuretics, initial encounter; Z79.82 Long term (current) use of aspirin; Z79.899 Other long term (current) drug therapy; Z82.49 Family history of ischemic heart disease and other diseases of the circulatory system; Z83.3 Family history of diabetes mellitus; Z95.5 Presence of coronary angioplasty implant and graft; Z80.9 Family history of malignant neoplasm, unspecified; R26.9 Unspecified abnormalities of gait and mobility; Z88.5 Allergy status to narcotic agent; Z88.2 Allergy status to sulfonamides; Z88.1 Allergy status to other antibiotic agents; Z91.040 Latex allergy status
CPT/HCPCS: 36415; 71045; 71046; 74018; 76770; 80048; 80053; 80061; 81001; 82150; 82272; 82728; 83036; 83540; 83550; 83605; 83690; 83735; 83880; 84484; 85025; 85027; 85045; 85610; 85730; 86738; 86850; 86900; 86901; 86920; 87040; 87086; 87449; 87502; 93005; 93306; 94640; 94660; 94760; 96361; 96365; 96366; 96375; 96376; 99285

== ENCOUNTER → 2019-01-06 | Outpatient (CLI) | payer OTHER ==
[2019-01-06 11:58] LABS: HCT 28.5 % (34.0-46.0); HGB 9.4 gm/dL (11.4-16.0); MCH 30.1 pg (25.0-35.0); MCV 91.1 fL (80.0-100.0); Mean Platelet Volume 7.2; Platelet Count 282 k/uL (150-450); RBC 3.13 m/uL (3.80-5.40); RDW 15.6 % (11.5-15.5); WBC 8.8 k/uL (3.8-10.6)
[2019-01-06 17:38] LABS: Albumin 3.7 g/dL (3.80-4.90); Albumin/Globulin Ratio 1.61 (1.60-3.17); Anion Gap 5.1 mmol/L (4.00-12.00); Carbon Dioxide 25.9 mmol/L (21.6-31.8); Globulin 2.3 g/dL (1.6-3.3); Potassium 3.9 mmol/L (3.5-5.5); Total Bilirubin 0.3 mg/dL (0.2-1.2)
== END | disposition home or self-care (01) ==
LOC: LABWHC1 10:12
PROVIDERS: ATTEND Internal Medicine Nephrology
DX: N18.4 Chronic kidney disease, stage 4 (severe) (principal); D63.1 Anemia in chronic kidney disease
CPT/HCPCS: 36415; 80053; 85027

== ENCOUNTER → 2019-01-09 | Outpatient (CLI) | payer OTHER ==
--- NOTE | 2019-01-09 15:08 | CT ---
EXAMINATION TYPE: CT wrist LT wo con DATE OF EXAM: 01/09/2019 COMPARISON: Outside report from prior x-ray of 12/31/2018. HISTORY: painful lump on left wrist, abnormal xray findings CT DLP: 180.4 mGycm Automated exposure control for dose reduction was used. FINDINGS: Mild degenerative changes are seen of the first carpometacarpal joint with small cystic change of the trapezius and small marginal osteophytes at the joint space. Small degenerative cyst is also seen of the lunate and triquetrum. Carpal carpal interspaces are maintained. No acute fracture or dislocatio n of the left wrist is seen. No suspicious osseous lesion is identified on CT. The previously describ ed subcentimeter lucencies of the distal radius and ulna may be on the basis of mild osseous deminera lization and inhomogeneous marrow as no focal cysts are seen. There is small vessel atherosclerosis n oted. Evaluation of the ligaments and tendons are limited on CT. However there is focal soft tissue s welling overlying the distal radius laterally. There is also a mass at this location measuring approx imately 1.0 x 1.6 cm in anterior posterior by transverse dimension and it elongates along the fascial planes measuring 3.2 cm in craniocaudal dimension. This has mass effect upon the adjacent tendon. No discrete tendon discontinuity. IMPRESSION: 1. ELONGATED MASS JUST DEEP TO THE SKIN SURFACE WITH SURROUNDING INFLAMMATORY CHANGE IS SEEN OVERLYIN G THE DISTAL RADIUS AT ITS LATERAL ASPECT WITH MASS EFFECT UPON THE ADJACENT TENDONS. CONSIDERATION I S FOR HEMATOMA GIVEN THE ATTENUATION OR LESS LIKELY NEOPLASM. CORRELATE WITH PRIOR INJURY. THIS DOES NOT APPEAR FLUID ATTENUATION THEREFORE ABSCESS OR GANGLION CYSTS OR NOT LIKELY. THIS COULD BE FURT HER EVALUATED WITH MRI WITH CONTRAST. 2. LUCENT LESIONS OF THE DISTAL ULNA AND RADIUS ON THE OUTSIDE REPORT MAY BE ON THE BASIS OF MILD GEN ERALIZED OSSEOUS DEMINERALIZATION WITH NO SUSPICIOUS OSSEOUS LESION SEEN. 3. MILD DEGENERATIVE CHANGES OF THE CARPAL BONES AND FIRST CARPOMETACARPAL JOINT.
== END | disposition home or self-care (01) ==
LOC: RADCTMAIN 11:50
PROVIDERS: ATTEND Family Medicine
DX: M18.9 Osteoarthritis of first carpometacarpal joint, unspecified (principal); M19.032 Primary osteoarthritis, left wrist; R22.32 Localized swelling, mass and lump, left upper limb

== ENCOUNTER → 2019-02-21 | Outpatient (CLI) | payer OTHER ==
[2019-02-21 15:06] LABS: Basophils % (A) 0 %; Eosinophils # (A) 0.3 k/uL (0-0.7); Eosinophils % (A) 4 %; HCT 26.7 % (34.0-46.0); Lymphocytes % (A) 11 %; MCH 30.8 pg (25.0-35.0); MCHC 33.7 g/dL (31.0-37.0); MCV 91.4 fL (80.0-100.0); Monocytes # (A) 0.4 k/uL (0-1.0); Monocytes % (A) 5 %; Neutrophils # (A) 6.7 k/uL (1.3-7.7); Neutrophils % (A) 78 %; Platelet Count 289 k/uL (150-450); RBC 2.92 m/uL (3.80-5.40); RDW 15.6 % (11.5-15.5); WBC 8.6 k/uL (3.8-10.6)
[2019-02-21 15:12] LABS: Appearance,Urine Clear (Clear); Bilirubin,Urine Negative (Negative); Blood,Urine Trace (Negative); Color,Urine Colorless; Glucose,Urine (UA) 4+ (Negative); Ketones,Urine Negative (Negative); Leukocyte Esterase,Urine Negative (Negative); Mucus,Urine Rare /hpf; Nitrite,Urine Negative (Negative); PH, Urine 6.5 (5.0-8.0); Protein,Urine 2+ (Negative); RBC,Urine 2 /hpf (0-5); Specific Gravity,Urine 1.008 (1.001-1.035); Squamous Epithelial Cell,Urine 1 /hpf (0-4); Urobilinogen,Urine <2.0 mg/dL (<2.0); WBC,Urine 1 /hpf (0-5)
[2019-02-21 19:07] LABS: Albumin 3.8 g/dL (3.80-4.90); Albumin/Globulin Ratio 1.65 (1.60-3.17); Calcium 8.8 mg/dL (8.7-10.3); Globulin 2.3 g/dL (1.6-3.3); LDL Cholesterol,Calculated 53.2 mg/dL (0.0-131.0); Magnesium 1.8 mg/dL (1.5-2.4); Phosphorus 3.8 mg/dL (2.4-5.1); Potassium 4.6 mmol/L (3.5-5.5); Total Bilirubin 0.3 mg/dL (0.3-1.2); Total Protein 6.1 g/dL (6.2-8.2); Uric Acid 7.6 mg/dL (2.9-7.7); VLDL Calculation 41.8 mg/dL (5.00-40.00)
[2019-02-21 19:14] LABS: Iron Saturation 22.18 (12.00-45.00)
[2019-02-21 21:04] LABS: Hemoglobin A1C 9.3 % (4.0-6.0)
== END ==
LOC: LABWHC1 14:09
PROVIDERS: ATTEND Nurse Practitioner Family
DX: N18.4 Chronic kidney disease, stage 4 (severe) (principal); D50.9 Iron deficiency anemia, unspecified; D63.1 Anemia in chronic kidney disease; E55.9 Vitamin D deficiency, unspecified; N25.81 Secondary hyperparathyroidism of renal origin; N39.0 Urinary tract infection, site not specified; M10.9 Gout, unspecified; E11.65 Type 2 diabetes mellitus with hyperglycemia; I12.9 Hypertensive chronic kidney disease with stage 1 through stage 4 chronic kidney disease, or unspecified chronic kidney disease; E78.2 Mixed hyperlipidemia; Z79.4 Long term (current) use of insulin
CPT/HCPCS: 36415; 80053; 80061; 81001; 82306; 82728; 83036; 83540; 83550; 83735; 83970; 84100; 84443; 84550; 85025

== ENCOUNTER → 2019-05-01 | Outpatient (CLI) | payer OTHER ==
[2019-05-01 14:03] LABS: HCT 26.5 % (34.0-46.0); HGB 8.9 gm/dL (11.4-16.0); MCH 31.1 pg (25.0-35.0); MCHC 33.7 g/dL (31.0-37.0); MCV 92.1 fL (80.0-100.0); Mean Platelet Volume 7.2; Platelet Count 277 k/uL (150-450); RBC 2.88 m/uL (3.80-5.40); RDW 15.9 % (11.5-15.5); WBC 9.4 k/uL (3.8-10.6)
[2019-05-01 14:40] LABS: Appearance,Urine Clear (Clear); Bilirubin,Urine Negative (Negative); Blood,Urine Trace (Negative); Color,Urine Light Yellow; Glucose,Urine (UA) 3+ (Negative); Hyaline Casts,Urine 1 /lpf (0-2); Ketones,Urine Negative (Negative); Leukocyte Esterase,Urine Negative (Negative); Mucus,Urine Rare /hpf; Nitrite,Urine Negative (Negative); Protein,Urine 2+ (Negative); RBC,Urine 1 /hpf (0-5); Squamous Epithelial Cell,Urine <1 /hpf (0-4); Urobilinogen,Urine <2.0 mg/dL (<2.0); WBC,Urine 1 /hpf (0-5)
[2019-05-01 19:27] LABS: Vitamin D 25 Hydroxy 23.6 ng/mL (30.0-100.0)
[2019-05-01 19:53] LABS: African American GFR (CKD) 30.2 (60.0-200.0); Albumin 3.6 g/dL (3.80-4.90); Albumin/Globulin Ratio 1.71 (1.60-3.17); BUN/Creat Ratio 25.5 Ratio (12.00-20.00); Calcium 8.6 mg/dL (8.7-10.3); Globulin 2.1 g/dL (1.6-3.3); Iron Saturation 18.9 (12.00-45.00); Magnesium 1.8 mg/dL (1.5-2.4); Phosphorus 3.5 mg/dL (2.4-5.1); Potassium 4.6 mmol/L (3.5-5.5); Total Bilirubin 0.2 mg/dL (0.2-1.2); Total Protein 5.7 g/dL (6.2-8.2); Uric Acid 6.1 mg/dL (2.9-7.7)
== END | disposition home or self-care (01) ==
LOC: LABWHC1 13:18
PROVIDERS: ATTEND Internal Medicine Nephrology
DX: N39.0 Urinary tract infection, site not specified (principal); D63.1 Anemia in chronic kidney disease; N18.4 Chronic kidney disease, stage 4 (severe); R80.9 Proteinuria, unspecified; N25.81 Secondary hyperparathyroidism of renal origin; E55.9 Vitamin D deficiency, unspecified; M10.9 Gout, unspecified
CPT/HCPCS: 36415; 80053; 81001; 82043; 82306; 82570; 82728; 83540; 83550; 83735; 83970; 84100; 84550; 85027

== ENCOUNTER → 2019-05-01 | Outpatient (CLI) | payer OTHER ==
--- NOTE | 2019-05-02 09:58 | MM ---
Reason for exam: screening (asymptomatic). Last mammogram was performed 2 years and 2 months ago. History: Patient is postmenopausal. Physical Findings: A clinical breast exam by your physician is recommended on an annual basis and results should be correlated with mammographic findings. MG Screening Mammo w CAD Bilateral CC and MLO view(s) were taken. Prior study comparison: February 23, 2017, bilateral MG screening mammo w CAD. January 19, 2016, bilateral MG work up mamm w CAD BILAT. The breast tissue is heterogeneously dense. This may lower the sensitivity of mammography. Benign appearing bilateral calcifications. No suspicious abnormality. No significant changes when compared with prior studies. ASSESSMENT: Benign, BI-RAD 2 RECOMMENDATION: Routine screening mammogram of both breasts in 1 year.
== END ==
LOC: RADMAMWWP 13:00
PROVIDERS: ATTEND Family Medicine
DX: Z12.31 Encounter for screening mammogram for malignant neoplasm of breast (principal)
CPT/HCPCS: 77067

== ENCOUNTER 2019-07-22 12:24 | Inpatient (IN) | payer OTHER ==
[2019-07-22] MEDS ORDERED: ACETAMINOPHEN TAB 500 MG TAB PO STA (12:41)
[2019-07-22] MEDS ORDERED: ONDANSETRON 4 MG/2 ML VIAL IVP STA (12:44)
--- NOTE | 2019-07-22 12:46 | ED ---
General Adult HPI - General Chief complaint: Nausea/Vomiting/Diarrhea Stated complaint: Vomiting Time Seen by Provider: 07/22/19 12:26 Source: patient, RN notes reviewed Mode of arrival: EMS Limitations: no limitations - History of Present Illness Initial comments: Patient is a pleasant 64-year-old female presenting to the emergency Department with complaints of nausea vomiting. Onset of symptoms was this morning. Patient states she vomited approximately 4 times. Patient complains of nausea however no abdominal pain. Patient states she does get this way occasionally. No diarrhea. No constipation. No fevers. - Related Data Home Medications Medication Instructions Recorded Confirmed Loratadine [Claritin] 10 mg PO BID 01/05/15 12/09/18 Aspirin 81 mg PO DAILY 04/16/15 12/09/18 Insulin Glargine [Lantus] 45 unit SQ BID 01/22/17 12/09/18 hydrALAZINE HCL [Apresoline] 50 mg PO TID-W/MEALS 08/15/17 12/09/18 Ferrous Sulfate [Iron (65 MG 325 mg PO DAILY 04/15/18 12/09/18 Elemental)] Metoprolol Succinate [Toprol XL] 75 mg PO BID 06/17/18 12/09/18 Insulin Lispro [Admelog] 15 units SQ TID 10/18/18 12/09/18 Liraglutide [Victoza 3-Miles] 0.6 mg SQ DAILY 10/18/18 12/09/18 Ergocalciferol [Vitamin D2 50,000 unit PO FR 11/28/18 12/09/18 (DRISDOL)] Insulin Lispro [Admelog] See Protocol SQ TID 11/28/18 12/09/18 Isosorbide Mononitrate ER [Imdur] 60 mg PO DAILY 12/09/18 12/09/18 Previous Rx's Medication Instructions Recorded Acetaminophen Tab [Tylenol] 650 mg PO Q6HR PRN tab 12/23/18 Albuterol Sulfate [Proair Hfa] 2 puff INHALATION Q6HR #1 inhaler 12/23/18 Apixaban [Eliquis] 2.5 mg PO BID #60 tablet 12/23/18 Atorvastatin [Lipitor] 40 mg PO HS #30 tab 12/23/18 Budesonide/Formoterol Fumarate 1 puff IH BID #1 hfa.aer.ad 12/23/18 [Symbicort 160-4.5 Mcg Inhaler] Darbepoetin Miguel [Aranesp] 60 mcg SQ Q7D syringe 12/23/18 Diltiazem Oral [Cardizem*] 60 mg PO TID #90 tab 12/23/18 Furosemide [Lasix] 60 mg PO BID@0900,1600 #60 tab 12/23/18 Levofloxacin [Levaquin] 250 mg PO Q48H #2 tab 12/23/18 Metolazone [Zaroxolyn] 10 mg PO DAILY #30 tab 12/23/18 Pantoprazole [Protonix] 40 mg PO AC-BRKFST #30 tablet. 12/23/18 Polyethylene Glycol 3350 [Miralax] 17 gm PO DAILY PRN 30 Days 12/23/18 powd.pack guaiFENesin [Mucinex] 1,200 mg PO Q12HR #60 tablet.er 12/23/18 Allergies Allergy/AdvReac Type Severity Reaction Status Date / Time cephalexin monohydrate Allergy Rash/Hives Verified 07/22/19 12:30 [From Keflex] ciprofloxacin [From Cipro] Allergy Swelling Verified 07/22/19 12:30 ciprofloxacin HCl Allergy Swelling Verified 07/22/19 12:30 [From Cipro] codeine Allergy Unknown Verified 07/22/19 12:30 latex Allergy Itching Verified 07/22/19 12:30 sulfamethoxazole Allergy Itching Verified 07/22/19 12:30 [From Bactrim] trimethoprim [From Bactrim] Allergy Itching Verified 07/22/19 12:30 adhesive tape AdvReac Itching Verified 07/22/19 12:30 Review of Systems ROS Statement: Those systems with pertinent positive or pertinent negative responses have been documented in the HPI. ROS Other: All systems not noted in ROS Statement are negative. Constitutional: Reports: as per HPI Eyes: Denies: eye pain ENT: Denies: ear pain Respiratory: Denies: cough, dyspnea Cardiovascular: Denies: chest pain Endocrine: Denies: fatigue Gastrointestinal: Reports: nausea, vomiting. Denies: abdominal pain Genitourinary: Denies: dysuria Musculoskeletal: Denies: back pain Skin: Denies: rash Neurological: Denies: weakness Past Medical History Past Medical History: Blood Disorder, Coronary Artery Disease (CAD), Heart Failure, Diabetes Mellitus, Hyperlipidemia, Hypertension, Myocardial Infarction ([place]), Renal Disease Additional Past Medical History / Comment(s): edema, seasonal allergies, Diabetic ulcer-SEES DR ZELAYA FOR WOUND CARE, anemia, neuropathy, CKD Last Myocardial Infarction Date:: 01/10/15 History of Any Multi-Drug Resistant Organisms: None Reported Past Surgical History: Heart Catheterization With Stent Additional Past Surgical History / Comment(s): PT HAD STENT TO DISTAL RCA IN DECEMBER 2014, carpal tunnel bilateral hands, Past Anesthesia/Blood Transfusion Reactions: Family History of Problems w/ Anesthesia, Motion Sickness Additional Past Anesthesia/Blood Transfusion Reaction / Comment(s): states mother had difficulty coming out of anesthesia Date of Last Stent Placement:: 12/30 Past Psychological History: Anxiety Smoking Status: Never smoker Past Alcohol Use History: None Reported Past Drug Use History: None Reported - Past Family History Brother(s) Family Medical History: Cancer Sister(s) Family Medical History: Diabetes Mellitus, Hypertension, Myocardial Infarction ([place]), Vascular Disorder Additional Family Medical History / Comment(s): post procedure of five stents Mother Family Medical History: CVA/TIA, Diabetes Mellitus, Myocardial Infarction ([place]) Additional Family Medical History / Comment(s): TIA's, PVD. Mother at age 65yrs. Father Family Medical History: Dementia, Diabetes Mellitus, Hypertension Additional Family Medical History / Comment(s): Father at age 72 yrs. General Exam Limitations: no limitations General appearance: alert, in no apparent distress Head exam: Present: normocephalic Eye exam: Present: normal appearance ENT exam: Present: normal oropharynx Neck exam: Present: normal inspection Respiratory exam: Present: normal lung sounds bilaterally Cardiovascular Exam: Present: regular rate, normal rhythm GI/Abdominal exam: Present: soft. Absent: distended, tenderness, guarding, rebound, rigid Extremities exam: Present: normal inspection Neurological exam: Present: alert Psychiatric exam: Present: normal affect, normal mood Skin exam: Present: normal color Course Vital Signs 07/22/19 07/22/19 07/22/19 12:31 12:35 14:06 Temperature 103.0 F H 99.6 F Pulse Rate 97 92 Respiratory 18 20 Rate Blood Pressure 198/70 148/76 O2 Sat by Pulse 88 L 91 L 94 L Oximetry EKG Findings - EKG Comments: EKG Findings:: Normal sinus rhythm 95. MD 182. QRS 92. QT 372. QTC 467. Normal axis. Inferior Q waves. Borderline. Septal Q waves. No acute ST change. Medical Decision Making - Medical Decision Making Patient reevaluated and resting. Patient states she is still feeling well. Patient updated on results. Case was discussed with Dr. Semyour who did come evaluate patient. - Lab Data Result diagrams: 07/22/19 13:25 07/22/19 13:25 Lab Results 07/22/19 07/22/19 07/22/19 Range/Units 13:25 13:25 13:25 WBC 13.2 H (3.8-10.6) k/uL RBC 2.96 L (3.80-5.40) m/uL Hgb 9.3 L (11.4-16.0) gm/dL Hct 27.0 L (34.0-46.0) % MCV 91.0 (80.0-100.0) fL MCH 31.2 (25.0-35.0) pg MCHC 34.3 (31.0-37.0) g/dL RDW 14.5 (11.5-15.5) % Plt Count 215 (150-450) k/uL Neutrophils % 94 % Lymphocytes % 2 % Monocytes % 3 % Eosinophils % 1 % Basophils % 0 % Neutrophils # 12.4 H (1.3-7.7) k/uL Lymphocytes # 0.3 L (1.0-4.8) k/uL Monocytes # 0.3 (0-1.0) k/uL Eosinophils # 0.1 (0-0.7) k/uL Basophils # 0.0 (0-0.2) k/uL PT (9.0-12.0) sec INR (<1.2) APTT (22.0-30.0) sec Sodium 141 (137-145) mmol/L Potassium 4.4 (3.5-5.1) mmol/L Chloride 107 (98-107) mmol/L Carbon Dioxide 25 (22-30) mmol/L Anion Gap 9 mmol/L BUN 56 H (7-17) mg/dL Creatinine 2.17 H (0.52-1.04) mg/dL Est GFR (CKD-EPI)AfAm 27 (>60 ml/min/1.73 sqM) Est GFR (CKD-EPI)NonAf 24 (>60 ml/min/1.73 sqM) Glucose 194 H (74-99) mg/dL Plasma Lactic Acid Sushant 2.1 H* (0.7-2.0) mmol/L Calcium 8.8 (8.4-10.2) mg/dL Total Bilirubin 0.4 (0.2-1.3) mg/dL AST 20 (14-36) U/L ALT 22 (9-52) U/L Alkaline Phosphatase 101 (38-126) U/L Total Protein 6.6 (6.3-8.2) g/dL Albumin 3.5 (3.5-5.0) g/dL Urine Color Urine Appearance (Clear) Urine pH (5.0-8.0) Ur Specific [place] (1.001-1.035) Urine Protein (Negative) Urine Glucose (UA) (Negative) Urine Ketones (Negative) Urine Blood (Negative) Urine Nitrite (Negative) Urine Bilirubin (Negative) Urine Urobilinogen (<2.0) mg/dL Ur Leukocyte Esterase (Negative) Urine RBC (0-5) /hpf Urine WBC (0-5) /hpf Ur Squamous Epith Cells (0-4) /hpf Amorphous Sediment (None) /hpf Urine Bacteria (None) /hpf Hyaline Casts (0-2) /lpf Urine Mucus (None) /hpf 07/22/19 07/22/19 Range/Units 13:25 14:00 WBC (3.8-10.6) k/uL RBC (3.80-5.40) m/uL Hgb (11.4-16.0) gm/dL Hct (34.0-46.0) % MCV (80.0-100.0) fL MCH (25.0-35.0) pg MCHC (31.0-37.0) g/dL RDW (11.5-15.5) % Plt Count (150-450) k/uL Neutrophils % % Lymphocytes % % Monocytes % % Eosinophils % % Basophils % % Neutrophils # (1.3-7.7) k/uL Lymphocytes # (1.0-4.8) k/uL Monocytes # (0-1.0) k/uL Eosinophils # (0-0.7) k/uL Basophils # (0-0.2) k/uL PT 10.1 (9.0-12.0) sec INR 0.9 (<1.2) APTT 21.9 L (22.0-30.0) sec Sodium (137-145) mmol/L Potassium (3.5-5.1) mmol/L Chloride (98-107) mmol/L Carbon Dioxide (22-30) mmol/L Anion Gap mmol/L BUN (7-17) mg/dL Creatinine (0.52-1.04) mg/dL Est GFR (CKD-EPI)AfAm (>60 ml/min/1.73 sqM) Est GFR (CKD-EPI)NonAf (>60 ml/min/1.73 sqM) Glucose (74-99) mg/dL Plasma Lactic Acid Sushant (0.7-2.0) mmol/L Calcium (8.4-10.2) mg/dL Total Bilirubin (0.2-1.3) mg/dL AST (14-36) U/L ALT (9-52) U/L Alkaline Phosphatase (38-126) U/L Total Protein (6.3-8.2) g/dL Albumin (3.5-5.0) g/dL Urine Color Light Yellow Urine Appearance Clear (Clear) Urine pH 6.5 (5.0-8.0) Ur Specific [place] 1.011 (1.001-1.035) Urine Protein 3+ H (Negative) Urine Glucose (UA) 3+ H (Negative) Urine Ketones Negative (Negative) Urine Blood Small H (Negative) Urine Nitrite Negative (Negative) Urine Bilirubin Negative (Negative) Urine Urobilinogen <2.0 (<2.0) mg/dL Ur Leukocyte Esterase Negative (Negative) Urine RBC 9 H (0-5) /hpf Urine WBC 1 (0-5) /hpf Ur Squamous Epith Cells 1 (0-4) /hpf Amorphous Sediment Rare H (None) /hpf Urine Bacteria Rare H (None) /hpf Hyaline Casts 7 H (0-2) /lpf Urine Mucus Occasional H (None) /hpf - Radiology Data Radiology results: image reviewed ( shows no acute process) Disposition Clinical Impression: Intractable nausea and vomiting Disposition: ADMITTED IP TO THIS HOSP Is patient prescribed a controlled substance at d/c from ED?: No Referrals: Gale Amin MD [Primary Care Provider] - 1-2 days Decision Time: 14:56
[2019-07-22] MEDS: SODIUM CHLORIDE 0.9% 1,000 ML IV SCH ×2 (13:10→21:26)
[2019-07-22] MEDS: SODIUM CHLORIDE 0.9% 500 ML 500 ML IV SCH (13:10)
[2019-07-22 13:47] LABS: Basophils % (A) 0 %; Eosinophils # (A) 0.1 k/uL (0-0.7); Eosinophils % (A) 1 %; HGB 9.3 gm/dL (11.4-16.0); Lymphocytes # (A) 0.3 k/uL (1.0-4.8); Lymphocytes % (A) 2 %; MCH 31.2 pg (25.0-35.0); MCHC 34.3 g/dL (31.0-37.0); Mean Platelet Volume 6.2; Monocytes # (A) 0.3 k/uL (0-1.0); Monocytes % (A) 3 %; Neutrophils # (A) 12.4 k/uL (1.3-7.7); Neutrophils % (A) 94 %; Platelet Count 215 k/uL (150-450); RBC 2.96 m/uL (3.80-5.40); RDW 14.5 % (11.5-15.5); WBC 13.2 k/uL (3.8-10.6)
--- NOTE | 2019-07-22 13:57 | XR ---
EXAMINATION TYPE: XR chest 2V DATE OF EXAM: 07/22/2019 COMPARISON: Chest x-ray December 19, 2018 HISTORY: Fever. TECHNIQUE: Frontal and lateral views of the chest are obtained. FINDINGS: Low lung volumes are present. There is no focal air space opacity, pleural effusion, or pne umothorax seen. The cardiac silhouette size remains enlarged. The osseous structures are intact. IMPRESSION: Cardiomegaly without suspicious acute pulmonary.
[2019-07-22 13:58] LABS: Albumin 3.5 g/dL (3.5-5.0); Calcium 8.8 mg/dL (8.4-10.2); Potassium 4.4 mmol/L (3.5-5.1); Total Bilirubin 0.4 mg/dL (0.2-1.3); Total Protein 6.6 g/dL (6.3-8.2)
[2019-07-22 14:08] LABS: INR 0.9 (<1.2); Partial Thromboplastin Time 21.9 sec (22.0-30.0); Prothrombin Time 10.1 sec (9.0-12.0)
[2019-07-22 14:38] LABS: Amorphous Sediment,Urine Rare /hpf; Appearance,Urine Clear (Clear); Bacteria,Urine Rare /hpf; Bilirubin,Urine Negative (Negative); Blood,Urine Small (Negative); Color,Urine Light Yellow; Glucose,Urine (UA) 3+ (Negative); Hyaline Casts,Urine 7 /lpf (0-2); Ketones,Urine Negative (Negative); Leukocyte Esterase,Urine Negative (Negative); Mucus,Urine Occasional /hpf; Nitrite,Urine Negative (Negative); PH, Urine 6.5 (5.0-8.0); Protein,Urine 3+ (Negative); RBC,Urine 9 /hpf (0-5); Specific Gravity,Urine 1.011 (1.001-1.035); Squamous Epithelial Cell,Urine 1 /hpf (0-4); Urobilinogen,Urine <2.0 mg/dL (<2.0); WBC,Urine 1 /hpf (0-5)
[2019-07-22] MEDS ORDERED: ONDANSETRON 4 MG/2 ML VIAL IVP PRN (14:56)
[2019-07-22] MEDS ORDERED: NALOXONE 0.4 MG/ML 1 ML VIAL IV PRN (14:56)
[2019-07-22] MEDS ORDERED: ALPRAZolam 0.25 MG TAB PO PRN (16:02)
[2019-07-22] MEDS ORDERED: TEMAZEPAM 15 MG CAP PO PRN (16:02)
[2019-07-22] MEDS ORDERED: IPRATROPIUM-ALBUTEROL 3 ML NEB INHALATION PRN (16:05)
--- NOTE | 2019-07-22 17:24 | HP ---
HISTORY AND PHYSICAL DATE OF SERVICE: 07/22/2019 CHIEF COMPLAINTS: Cough as well as fever and nausea, vomiting. HISTORY OF PRESENT ILLNESS: This 64-year-old woman with a past medical history of multiple medical problems,including CAD, history of CHF with chronic diastolic dysfunction, diabetes mellitus, hypertension, hyperlipidemia, history of sleep apnea, pulmonary hypertension, history of possible COPD, being followed by Dr. Gale Amin and Cardiology in the outpatient setting as well as Dr. Thakkar in the outpatient setting, is complaining of nausea and vomiting. The patient also complains of not feeling well over the past few days. She has been feeling feverish with. Her temperature was found to be 103.3 Fahrenheit on admission. The patient was admitted for further evaluation and treatment. Chest x-ray which was done at the time of admission, which was reviewed personally by me, showed some cardiomegaly and possible infiltrate in the right lower chest area. There is no history of any chest pain, palpitations, hematochezia or melena at this time. PAST MEDICAL HISTORY: 1. History of CAD. 2. History of CHF. 3. Diabetes mellitus, type 2. 4. Hypertension. 5. Hyperlipidemia. 6. History of myocardial infarction. 7. History of CAD, stent. HOME MEDICATIONS: 1. Hydralazine 50 mg with meals. 2. Mucinex 1200 mg p.o. b.i.d. 3. Glycol 17 grams daily p.r.n. 4. Protonix 40 mg daily. 5. Toprol XL 75 mg p.o. b.i.d. 6. Zaroxolyn 10 mg p.o. daily. 7. Claritin 10 mg p.o. b.i.d. 8. Victoza 0.6 daily. 9. Levaquin 250 mg q.48 hours. 10.Imdur 60 mg p.o. daily. 11.Admelog subcutaneously t.i.d. 12.Lantus 45 units subcutaneously b.i.d. 13.Lasix 60 mg p.o. b.i.d. 14.Iron sulfate 325 mg p.o. daily. 15.Drisdol 50,000 p.o. Sunday. 16.Cardizem 60 mg p.o. daily. 17.Aranesp 60 mcg q.7 days. 18.Symbicort 160/4.5 one puff b.i.d. 19.Lipitor 40 mg at bedtime. 20.Aspirin 81 mg p.o. daily. 21.Eliquis 2.5 mg p.o. b.i.d. 22.ProAir HFA 2 puffs q.6 p.r.n. 23.Tylenol 650 q.6 p.r.n. ALLERGIES: 1. KEFLEX. 2. CIPRO. 3. CODEINE. 4. LATEX. 5. BACTRIM. 6. ADHESIVE TAPE. FAMILY HISTORY: History of diabetes, hypertension, myocardial infarction, DJD, history of stents. SOCIAL HISTORY: No history of smoking. No history of alcohol intake. REVIEW OF SYSTEMS: ENT: No diminished hearing. No diminished vision. CARDIOVASCULAR SYSTEM: As mentioned earlier. RESPIRATORY SYSTEM: As mentioned earlier. GI: As mentioned earlier. : No dysuria or retention. NERVOUS SYSTEM: No numbness, weakness. ALLERGY/IMMUNOLOGY: No asthma, hayfever. MUSCULOSKELETAL: As mentioned earlier. HEMATOLOGY/ONCOLOGY: No history of anemia. ENDOCRINE: As mentioned earlier. CONSTITUTIONAL: As mentioned earlier. DERMATOLOGY: Negative. RHEUMATOLOGY: Negative. PSYCHIATRY: As mentioned earlier. PHYSICAL EXAMINATION: Patient alert and oriented x3. Pulse 97, blood pressure 198/70, respiration 18, temperature 103, pulse ox 88% on 2 L. HEENT: Conjunctivae normal. Oral mucosa moist. NECK: No jugular venous distention. No carotid bruit. No lymph node enlargement. CARDIOVASCULAR SYSTEM: S1, S2 muffled. No S3. No S4. RESPIRATORY SYSTEM: Breath sounds diminished at the bases. A few scattered rhonchi and crackles. ABDOMEN: Soft, obese, non-tender. No mass palpable. LEGS: No edema. No swelling. NERVOUS SYSTEM: Higher functions as mentioned earlier. Moves all 4 limbs. No focal motor or sensory deficit. LYMPHATICS: No lymph node palpable in neck, axillae or groin. SKIN: No ulcer, rash, bleeding. JOINTS: No active deforming arthropathy. LABS: WBC 13.2, hemoglobin 9.3. Sodium 141, potassium 4.4. Creatinine is 2.17. ASSESSMENT: 1. Fever, possibly acute right lower lobe pneumonia, possibly gram-negative with sepsis and acute hypoxic respiratory failure. 2. Increased creatinine with chronic kidney disease, stage III. 3. Elevated plasma lactic acid secondary to sepsis possibly. 4. Fever. 5. Increased white count. 6. Anemia, normocytic; anemia of chronic disease. 7. History of coronary artery disease, stent. 8. History of congestive heart failure with chronic diastolic dysfunction. 9. Diabetes mellitus, type 2. 10.Hypertension. 11.Hyperlipidemia. 12.History of myocardial infarction. 13.Seasonal allergies. 14.History of diabetic ulcers. 15.History of chronic kidney disease. 16.History of anxiety. 17.Obesity with body mass index of 42.3. 18.FULL CODE. RECOMMENDATIONS AND DISCUSSION: In this 64-year-old woman who presented with multiple complex medical issues, we will monitor the patient closely, continue the current medications, continue with symptomatic treatment. Exact etiology of the fever is unknown at this time. I recommend empiric antibiotics. Follow the cultures. Follow with septic protocol. Will be cautious with IV fluid administration because of the history of CHF. Otherwise, I would follow the patient closely and I would also consult Infectious Disease and continue to monitor. Guarded prognosis. Further recommendations to follow. Will check the flu swab also. A copy of this dictation is being forwarded to Dr. Gale Amin, who is the primary physician. MMODL / IJN: [id number] /
[2019-07-22] MEDS: AZTREONAM 2 GM in SODIUM CHLORIDE 0.9% 100 ML IVPB SCH (18:23)
[2019-07-22] MEDS: IPRATROPIUM-ALBUTEROL 3 ML NEB INHALATION SCH (18:59)
[2019-07-22] MEDS ORDERED: HEPARIN SODIUM,PORCINE 5,000 UNIT/ML 1 ML VIAL SQ SCH (21:00)
[2019-07-22 21:22] LABS: Glucose,Whole Blood 302 mg/dL (75-99)
[2019-07-22] MEDS: METOPROLOL TARTRATE 25 MG TAB PO SCH (21:26)
[2019-07-22] MEDS: DILTIAZEM ORAL 60 MG TAB PO SCH (21:27)
[2019-07-22] MEDS: TORSEMIDE 20 MG TAB PO SCH (21:27)
[2019-07-22] MEDS: ATORVASTATIN 80 MG TAB PO SCH (21:27)
[2019-07-22] MEDS: APIXABAN 2.5 MG TABLET PO SCH (21:27)
[2019-07-22] MEDS: INSULIN ASPART (NovoLOG) 100 UNIT/ML VIAL SQ SCH (21:28)
[2019-07-22] MEDS: INSULIN DETEMIR (LEVEMIR) 100 UNIT/ML SYR SQ SCH (21:28)
--- NOTE | 2019-07-22 22:33 | P.CONS ---
History of Present Illness - Reason for Consult Consult date: 07/22/19 Fever Requesting physician: Aylin Seymour - Chief Complaint Vomiting since morning - History of Present Illness Patient is 64-year-old female presenting to the ER at [facility] this afternoon with chief complaints of vomiting since morning is about 3 episodes of vomiting denies any hematemesis the patient said she has not been feeling that great since weekend this was mostly generalized not feeling well, the patient denies having any abdominal pain denies having any diarrhea or constipation denies having any URI symptoms no chest pain shortness of breath or cough and no urinary symptoms with these symptoms the patient has been evaluated by the physician on arrival to the patient did have a fever of 10 3F patient did have elevated white count 13,000 chest x-ray did not show any consolidation and UA was not significant positive the patient has been started on Azactam because of her multiple antibiotic ALLERGIES she has been admitted to the hospital infectious disease was consulted for further recommendation regarding antibiotic therapy Review of Systems Positive point has been mentioned in the HPI rest of the systems are negative Past Medical History Past Medical History: Blood Disorder, Coronary Artery Disease (CAD), Heart Failure, Diabetes Mellitus, Hyperlipidemia, Hypertension, Myocardial Infarction ([place]), Renal Disease Additional Past Medical History / Comment(s): edema, seasonal allergies, Diabetic ulcer-SEES DR ZELAYA FOR WOUND CARE, anemia, neuropathy, CKD Last Myocardial Infarction Date:: 01/10/15 History of Any Multi-Drug Resistant Organisms: None Reported Past Surgical History: Heart Catheterization With Stent Additional Past Surgical History / Comment(s): PT HAD STENT TO DISTAL RCA IN DECEMBER 2014, carpal tunnel bilateral hands, Past Anesthesia/Blood Transfusion Reactions: Family History of Problems w/ Anesthesia, Motion Sickness Additional Past Anesthesia/Blood Transfusion Reaction / Comm: states mother had difficulty coming out of anesthesia Date of Last Stent Placement:: 12/30 Past Psychological History: Anxiety Smoking Status: Never smoker Past Alcohol Use History: None Reported Past Drug Use History: None Reported - Past Family History Brother(s) Family Medical History: Cancer Sister(s) Family Medical History: Diabetes Mellitus, Hypertension, Myocardial Infarction ([place]), Vascular Disorder Additional Family Medical History / Comment(s): post procedure of five stents Mother Family Medical History: CVA/TIA, Diabetes Mellitus, Myocardial Infarction ([place]) Additional Family Medical History / Comment(s): TIA's, PVD. Mother at age 65yrs. Father Family Medical History: Dementia, Diabetes Mellitus, Hypertension Additional Family Medical History / Comment(s): Father at age 72 yrs. Medications and Allergies Home Medications Medication Instructions Recorded Confirmed Type Loratadine [Claritin] 10 mg PO DAILY 01/05/15 07/22/19 History Aspirin 81 mg PO DAILY 04/16/15 07/22/19 History Insulin Glargine [Lantus] 45 unit SQ BID 01/22/17 07/22/19 History hydrALAZINE HCL [Apresoline] 75 mg PO TID-W/MEALS 08/15/17 07/22/19 History Ferrous Sulfate [Iron (65 MG 325 mg PO DAILY 04/15/18 07/22/19 History Elemental)] Insulin Lispro [Admelog] 15 units SQ AC-TID 10/18/18 07/22/19 History Ergocalciferol [Vitamin D2 50,000 unit PO Q7D 11/28/18 07/22/19 History (DRISDOL)] Insulin Lispro [Admelog] See Protocol SQ AC-TID 11/28/18 07/22/19 History Isosorbide Mononitrate ER [Imdur] 60 mg PO DAILY 12/09/18 07/22/19 History Apixaban [Eliquis] 2.5 mg PO BID #60 tablet 12/23/18 07/22/19 Rx Allopurinol [Zyloprim] 200 mg PO HS 07/22/19 07/22/19 History Atorvastatin [Lipitor] 80 mg PO HS 07/22/19 07/22/19 History Calcitriol 0.5 mcg PO Q7D 07/22/19 07/22/19 History Diltiazem Oral [Cardizem*] 60 mg PO BID 07/22/19 07/22/19 History Metoprolol Tartrate [Lopressor] 75 mg PO BID 07/22/19 07/22/19 History Torsemide [Demadex] 40 mg PO BID 07/22/19 07/22/19 History Allergies Allergy/AdvReac Type Severity Reaction Status Date / Time ciprofloxacin [From Cipro] Allergy Swelling Verified 07/22/19 16:09 ciprofloxacin HCl Allergy Swelling Verified 07/22/19 16:09 [From Cipro] codeine Allergy Unknown Verified 07/22/19 16:09 latex Allergy Itching Verified 07/22/19 12:30 adhesive tape AdvReac Itching Verified 07/22/19 16:09 cephalexin monohydrate AdvReac Rash/Hives Verified 07/22/19 16:09 [From Keflex] sulfamethoxazole AdvReac Itching Verified 07/22/19 16:09 [From Bactrim] trimethoprim [From Bactrim] AdvReac Itching Verified 07/22/19 16:09 Physical Exam Vitals: Vital Signs Temp Pulse Resp BP Pulse Ox 07/22/19 16:16 76 18 135/59 94 L 07/22/19 14:06 99.6 F 92 20 148/76 94 L 07/22/19 12:35 91 L 07/22/19 12:31 103.0 F H 97 18 198/70 88 L Intake and Output 07/22/19 07/22/19 07/22/19 06:59 14:59 22:59 Other: Weight 122.47 kg GENERAL DESCRIPTION: Middle-aged female lying in bed, no distress. No tachypnea or accessory muscle of respiration use. HEENT: Shows Pallor , no scleral icterus. Oral mucous membrane is dry. No pharyngeal erythema or thrush NECK: Trachea central, no thyromegaly. LUNGS: Unlabored breathing. Clear to auscultation anteriorly. No wheeze or crackle. HEART: S1, S2, regular rate and rhythm. No loud murmur ABDOMEN: Soft, no tenderness , guarding or rigidity, no organomegaly EXTREMITIES: No edema of feet. SKIN: No rash, no masses palpable. NEUROLOGICAL: The patient is awake, alert, oriented x3, mood and affect normal. Results CBC & Chem 7: 07/22/19 13:25 07/22/19 13:25 Labs: Abnormal Lab Results - Last 24 Hours (Table) 07/22/19 07/22/19 07/22/19 Range/Units 13:25 13:25 13:25 WBC 13.2 H (3.8-10.6) k/uL RBC 2.96 L (3.80-5.40) m/uL Hgb 9.3 L (11.4-16.0) gm/dL Hct 27.0 L (34.0-46.0) % Neutrophils # 12.4 H (1.3-7.7) k/uL Lymphocytes # 0.3 L (1.0-4.8) k/uL APTT (22.0-30.0) sec BUN 56 H (7-17) mg/dL Creatinine 2.17 H (0.52-1.04) mg/dL Glucose 194 H (74-99) mg/dL Plasma Lactic Acid Sushant 2.1 H* (0.7-2.0) mmol/L Urine Protein (Negative) Urine Glucose (UA) (Negative) Urine Blood (Negative) Urine RBC (0-5) /hpf Amorphous Sediment (None) /hpf Urine Bacteria (None) /hpf Hyaline Casts (0-2) /lpf Urine Mucus (None) /hpf 07/22/19 07/22/19 Range/Units 13:25 14:00 WBC (3.8-10.6) k/uL RBC (3.80-5.40) m/uL Hgb (11.4-16.0) gm/dL Hct (34.0-46.0) % Neutrophils # (1.3-7.7) k/uL Lymphocytes # (1.0-4.8) k/uL APTT 21.9 L (22.0-30.0) sec BUN (7-17) mg/dL Creatinine (0.52-1.04) mg/dL Glucose (74-99) mg/dL Plasma Lactic Acid Sushant (0.7-2.0) mmol/L Urine Protein 3+ H (Negative) Urine Glucose (UA) 3+ H (Negative) Urine Blood Small H (Negative) Urine RBC 9 H (0-5) /hpf Amorphous Sediment Rare H (None) /hpf Urine Bacteria Rare H (None) /hpf Hyaline Casts 7 H (0-2) /lpf Urine Mucus Occasional H (None) /hpf Assessment and Plan Assessment: 1-patient presented to hospital with not feeling well 3 episodes of vomiting since morning in this patient who did have a fever and elevated white count however no abdominal pain and no significant tenderness was noticed on Abdominal examination with concern for possible viral gastroenteritis versus other intra- abdominal sources as the patient currently no other obvious source of infection 2-Patient with multiple antibiotic ALLERGIES that would limit the number of ant ibiotic safe to use Plan: 1-continue with empiric Azactam started in the ER 2-gentle IV fluid 3-we will obtain ultrasound of the abdomen which if negative and the patient na usea vomiting resolve to get a CT of abdominal pelvis with oral contrast only We will follow on clinical condition and cultures to further adjust medication if needed Thank you for this consultation will follow this patient with you Time with Patient: Greater than 30
[2019-07-23] MEDS: AZTREONAM 2 GM in SODIUM CHLORIDE 0.9% 100 ML IVPB SCH ×2 (00:49→08:23)
[2019-07-23 07:18] LABS: Glucose,Whole Blood 139 mg/dL (75-99)
[2019-07-23] MEDS ORDERED: PANTOPRAZOLE 40 MG TABLET PO SCH (07:30)
[2019-07-23] MEDS: IPRATROPIUM-ALBUTEROL 3 ML NEB INHALATION SCH ×3 (08:12→19:15)
[2019-07-23] MEDS: METOPROLOL TARTRATE 25 MG TAB PO SCH ×2 (08:20→20:31)
[2019-07-23] MEDS: APIXABAN 2.5 MG TABLET PO SCH ×2 (08:21→20:32)
[2019-07-23] MEDS: LORATADINE 10 MG TAB PO SCH (08:21)
[2019-07-23] MEDS: FAMOTIDINE 20 MG/2 ML VIAL IV SCH (08:21)
[2019-07-23] MEDS: hydrALAZINE HCL 25 MG TAB PO SCH ×3 (08:21→17:34)
[2019-07-23] MEDS: ISOSORBIDE MONONITRATE ER 60 MG TAB.ER.24H PO SCH (08:21)
[2019-07-23] MEDS: INSULIN ASPART (NovoLOG) 100 UNIT/ML VIAL SQ SCH ×7 (08:22→23:03)
[2019-07-23] MEDS: DILTIAZEM ORAL 60 MG TAB PO SCH ×2 (08:23→20:38)
[2019-07-23] MEDS: INSULIN DETEMIR (LEVEMIR) 100 UNIT/ML SYR SQ SCH ×2 (08:23→23:04)
[2019-07-23] MEDS: TORSEMIDE 20 MG TAB PO SCH ×2 (08:24→16:38)
--- NOTE | 2019-07-23 08:49 | US ---
EXAMINATION TYPE: US abdomen complete DATE OF EXAM: 07/23/2019 COMPARISON: NONE CLINICAL HISTORY: fever and vomiting. Nausea and vomiting. EXAM MEASUREMENTS: Liver Length: 24 cm Gallbladder Wall: .2 cm CBD: .6 cm Spleen: 14 cm Right Kidney: 14.7 x 6.1 x 5.9 cm Left Kidney: 15 x 6.3 x 4.4 cm Pancreas: Obscured by bowel gas Liver: Increased attenuation, most commonly related to hepatic steatosis. This finding limits evalua tion for underlying hepatic masses. Hepatomegaly. Gallbladder: wnl Evidence for sonographic Tabares's sign: No CBD: wnl Spleen: Splenomegaly. Right Kidney: wnl Left Kidney: wnl Upper IVC: wnl Abd Aorta: Limited due to bowel gas. The liver is homogenous. The intrahepatic portion of the IVC and proximal abdominal aorta are within normal limits. There is no evidence of cholelithiasis. Common bile duct is unremarkable. The panc reas is obscured by bowel gas. The spleen is enlarged. Kidneys are symmetric and free of hydronephr osis. No renal lesions are seen. IMPRESSION: Limited exam secondary to overlying bowel gas. Suboptimal visualization of the viscera. 1. Hepatosplenomegaly and increased echotexture of the liver, most commonly seen in hepatic steatosis although can be seen in other hepatocellular diseases. 2. No sonographic evidence of cholelithiasis nor acute cholecystitis.
[2019-07-23 09:21] LABS: Basophils % (A) 0 %; Eosinophils # (A) 0.2 k/uL (0-0.7); Eosinophils % (A) 2 %; HCT 24.2 % (34.0-46.0); HGB 8.2 gm/dL (11.4-16.0); Lymphocytes # (A) 1.2 k/uL (1.0-4.8); Lymphocytes % (A) 10 %; MCH 31.7 pg (25.0-35.0); MCV 93.1 fL (80.0-100.0); Mean Platelet Volume 6.3; Monocytes # (A) 0.5 k/uL (0-1.0); Monocytes % (A) 4 %; Neutrophils # (A) 9.7 k/uL (1.3-7.7); Neutrophils % (A) 82 %; Platelet Count 226 k/uL (150-450); RDW 14.3 % (11.5-15.5); WBC 11.9 k/uL (3.8-10.6)
[2019-07-23 09:47] LABS: Calcium 8.3 mg/dL (8.4-10.2); Potassium 4.2 mmol/L (3.5-5.1)
[2019-07-23 11:31] LABS: Glucose,Whole Blood 199 mg/dL (75-99)
--- NOTE | 2019-07-23 12:50 | XR ---
EXAMINATION TYPE: XR chest 1V portable DATE OF EXAM: 07/23/2019 COMPARISON: 07/22/2019 HISTORY: Congestive heart failure TECHNIQUE: Single frontal view of the chest is obtained. FINDINGS: There is attenuation of the lungs. There is mild pulmonary vascular congestion and new int erstitial pulmonary edema. Cardiomediastinal silhouette is again enlarged. There is blunting of the c ostophrenic angles indicative of trace pleural effusions. No acute osseous pathology is seen. No siza ble pneumothorax. IMPRESSION: Worsening fluid overload, likely cardiogenic with mild interstitial pulmonary edema and vascular congestion.
[2019-07-23] MEDS: IOPAMIDOL CONTRAST (ORAL USE) VIAL PO PRN ×2 (16:37→17:29)
[2019-07-23] MEDS: AZTREONAM 1 GM in SODIUM CHLORIDE 0.9% 50 ML IVPB SCH ×2 (16:43→23:12)
[2019-07-23 17:02] LABS: Glucose,Whole Blood 119 mg/dL (75-99)
--- NOTE | 2019-07-23 17:53 | PN ---
PROGRESS NOTE DATE OF SERVICE: 07/23/2019 REASON FOR FOLLOWUP: Fever and possible viral gastroenteritis. INTERVAL HISTORY: The patient's overall fever pattern has improved. The patient is feeling slightly better, breathing comfortably. Denies having any chest pain or any cough. No further vomiting. Denies having abdominal pain. Did have a formed bowel movement. PHYSICAL EXAMINATION: Blood pressure 162/67 with a pulse of 60, temperature 97.5. She is 96% on 2 L nasal cannula. General description is a middle-aged female up in the bed in no distress. RESPIRATORY SYSTEM: Unlabored breathing. Decreased breath sounds at the base. No wheeze. HEART: S1, S2. Regular rate and rhythm. ABDOMEN: Soft. No tenderness. EXTREMITIES: No edema of the feet. LABS: Hemoglobin 8.2, white count 11.9. BUN of 53. Creatinine is 2.55. DIAGNOSTIC IMPRESSION AND PLAN: Patient admitted to hospital with in this patient who did have fever, elevated white count, predominantly with nausea and vomiting. Ultrasound has not been very conclusive. We will obtain a CT of abdomen and pelvis with oral contrast only to rule out any pathology. Continue with the Azactam patient is currently on and wait for the culture to finalize. Continue supportive care. MMODL / IJN: [id number] /
[2019-07-23] MEDS ORDERED: FUROSEMIDE 10 MG/ML 4 ML VIAL IV ONE (19:00)
--- NOTE | 2019-07-23 19:38 | PN ---
PROGRESS NOTE DATE OF SERVICE: 07/23/2019 This 64-year-old woman who was admitted with presumed sepsis and fever is being closely monitored at this time. The patient had significant nausea, also. The patient is feeling much better. Patient is on broad-spectrum IV antibiotics. Patient's creatinine also worsened today. The patient also has some evidence of fluid overload. Multiple consultants are following the patient closely. Empiric antibiotics are initiated at this time. The cultures are negative so far. Past medical history reviewed. REVIEW OF SYSTEMS: CARDIOVASCULAR SYSTEM: No angina, palpitations. RESPIRATORY SYSTEM: As mentioned earlier. GI: As mentioned earlier. NERVOUS SYSTEM: No numbness, weakness. CURRENT MEDICATIONS: Reviewed. They include: 1. DuoNeb q.i.d. and p.r.n. 2. Xanax 0.25 t.i.d. 3. Eliquis 2.5 mg b.i.d. 4. Lipitor 80 mg p.o. at bedtime. 5. Azactam 1 gram IV q.8. 6. Rocaltrol 0.5 mcg q.7 days. 7. Cardizem 60 mg p.o. b.i.d. 8. Vitamin D2. 9. Pepcid 20 mg IV daily. 10.Apresoline 75 mg daily. 11.NovoLog. 12.Levemir 45 units subcutaneously b.i.d. 13.Imdur 60 mg p.o. daily. 14.Claritin 10 mg p.o. daily. 15.Lopressor 75 mg p.o. b.i.d. 16.Zofran. 17.Demadex 40 mg p.o. b.i.d. PHYSICAL EXAMINATION: Patient is alert, oriented x3. Pulse 60, blood pressure 160/60, respiration 14, temperature 97.4, pulse ox 96% on 2 L. HEENT: Conjunctivae normal. NECK: No jugular venous distention. CARDIOVASCULAR SYSTEM: S1, S2 muffled. RESPIRATORY SYSTEM: Breath sounds diminished at the bases. A few scattered rhonchi and crackles. ABDOMEN: Soft, non-tender. LEGS: No edema. No swelling. NERVOUS SYSTEM: No focal deficit. LABS: WBC 7.3, hemoglobin 8.2. Creatinine is 2.55. ASSESSMENT: 1. Fever, possibly acute right lower lobe pneumonia, possibly gram-negative with sepsis with acute hypoxic respiratory failure. 2. Increased creatinine with chronic kidney disease, stage III. 3. Elevated plasma lactic acid secondary to sepsis previously. 4. Rule out congestive heart failure, acute exacerbation, with acute on chronic diastolic dysfunction. 5. Fever, improved. 6. Increased white count. 7. Anemia, normocytic; anemia of chronic disease. 8. History of coronary artery disease, stent. 9. Diabetes mellitus, type 2. 10.Hypertension. 11.Hyperlipidemia. 12.History of myocardial infarction. 13.History of seasonal allergies. 14.History of diabetic ulcer. 15.History of chronic kidney disease. 16.History of anxiety. 17.Obesity with body mass index of 42.3. 18.FULL CODE. RECOMMENDATIONS AND DISCUSSION: I recommend to continue current medications, continue with the monitoring, symptomatic treatment. Otherwise at this time I would recommend continuing the broad-spectrum IV antibiotics. Follow the cultures. Closely follow with Nephrology, also. Guarded prognosis. Further recommendations to follow. MMROSA ELENAL / IJN: [id number] /
--- NOTE | 2019-07-23 19:40 | CT ---
EXAMINATION TYPE: CT abdomen pelvis wo con DATE OF EXAM: 07/23/2019 COMPARISON: None INDICATION: abdominal pain, fever, vomiting DLP: 1258 mGycm, Automated exposure control for dose reduction was used. CONTRAST: 0 mL of Isovue 300. Study performed with Oral Contrast TECHNIQUE: Axial images were obtained from above the diaphragm to the pubic rami in the axial plane a t 5 mm thick sections. Reconstructed images are reviewed on the computer in the coronal plane. FINDINGS: Limited CT sections are obtained the lung bases. Some mild linear opacities are in the left lung bas e could be some mild streak atelectasis.. CT ABDOMEN: Liver: Couple of calcified granuloma may be present. Spleen: There are scattered calcified granuloma within the spleen. Pancreas: Normal Adrenal glands: The adrenal glands are normal. Gallbladder: There appears to be some layering sludge or tiny gravel within the gallbladder. Kidneys: No masses are evident. No hydronephrosis is present. No cysts are present. No renal stone s are evident. Aorta: Vascular calcification is within the aorta. Inferior vena cava: Normal. CT PELVIS: Loops of bowel within the abdomen and pelvis are normal. There are loops of bowel which are incom pletely distended or lack oral contrast limiting their evaluation. Appendix: Appendix is visualized is normal Urinary bladder: Decompressed with limited evaluation Genitourinary structures: Uterus is unremarkable. Adnexal regions are clear. No free fluid is within the pelvis Osseous structures: No suspicious lytic or sclerotic lesions. IMPRESSIONS: 1. No suspicious acute changes to account for fever vomiting
--- NOTE | 2019-07-23 20:25 | CONS ---
CONSULTATION REASON FOR CONSULT: Renal failure. HISTORY OF PRESENT ILLNESS: Patient is a 64-year-old female with a history of chronic kidney disease, stage IV, secondary to diabetic kidney disease and cardiorenal syndrome. Patient was admitted to the hospital with nausea and vomiting, decreased oral intake. She has received IV fluids. The fluids are currently hep-locked. Serum creatinine is at 2.5 mg/dL, which is slightly up from 2.1 yesterday. Review of previous labs shows serum creatinine about 2.3 to 2.4 mg/dL at baseline. Currently patient states that her nausea has improved. She is tolerating oral diet and she is looking forward to possible discharge today. PAST MEDICAL HISTORY: 1. CKD, stage IV. 2. History of CHF. 3. History of volume overload. 4. Coronary artery disease. 5. Diastolic dysfunction. 6. Type 2 diabetes. 7. Hypertension. 8. Hyperlipidemia. 9. Pulmonary hypertension. 10.COPD. 11.History of coronary artery disease with coronary stent placement. 12.History of NC. MEDICATIONS: Medications at home prior to admission included: 1. Hydralazine. 2. Mucinex. 3. Glycol. 4. Protonix. 5. Toprol. 6. Zaroxolyn. 7. Claritin. 8. Imdur. 9. Levaquin. 10.Insulin. 11.Lasix. 12.Iron. 13.Drisdol. 14.Cardizem. 15.Aranesp. 16.Lipitor. 17.Aspirin. 18.Eliquis. 19.ProAir. 20.Tylenol. ALLERGIES: ALLERGIES include: 1. KEFLEX. 2. CIPRO. 3. CODEINE. 4. LATEX. 5. BACTRIM. 6. ADHESIVE TAPE. FAMILY HISTORY: Noncontributory. SOCIAL HISTORY: Negative for smoking, drug abuse or alcohol abuse. PHYSICAL EXAMINATION: On examination, patient is comfortable, awake, not in any acute distress. Blood pressure was elevated 171/78, heart rate 65 per minute. Patient is afebrile. EXAMINATION OF THE HEART: S1 and S2. EXAMINATION OF LUNGS: Bilateral breath sounds are heard. ABDOMEN: Soft, non-tender. Examination of lower extremities shows edema 1+ bilaterally. [employer] PRESERVER exam is grossly intact. LABS: Hemoglobin 8.2, white cell count 11.9. Sodium 139, potassium 4.2, BUN 53, serum creatinine 2.5. ASSESSMENT: 1. Chronic kidney disease, stage IV, secondary to diabetic nephropathy, cardiorenal syndrome. Renal function at baseline. Baseline creatinine 2.4 to 2.3 mg/dL. 2. Nausea and vomiting on initial admission, currently resolved. 3. Fever with currently patient being afebrile. UA was unremarkable. Chest x-ray showed evidence of interstitial pulmonary edema and vascular congestion. No evidence of pneumonia. Source is likely viral. 4. History of congestive heart failure, diastolic dysfunction. PLAN: Agree with discontinuation of IV fluids. Resume diuretics. Repeat labs in a.m. if patient is not discharged. MMODL / IJN: [id number] /
[2019-07-23] MEDS: ATORVASTATIN 80 MG TAB PO SCH (20:32)
[2019-07-23 20:55] LABS: Glucose,Whole Blood 149 mg/dL (75-99)
[2019-07-23 23:02] LABS: Glucose,Whole Blood 152 mg/dL (75-99)
[2019-07-24 07:22] LABS: Glucose,Whole Blood 196 mg/dL (75-99)
[2019-07-24] MEDS: IPRATROPIUM-ALBUTEROL 3 ML NEB INHALATION SCH ×3 (07:45→19:06)
[2019-07-24] MEDS: METOPROLOL TARTRATE 25 MG TAB PO SCH ×2 (08:37→21:26)
[2019-07-24] MEDS: LORATADINE 10 MG TAB PO SCH (08:38)
[2019-07-24] MEDS: INSULIN DETEMIR (LEVEMIR) 100 UNIT/ML SYR SQ SCH ×2 (08:39→21:26)
[2019-07-24] MEDS: INSULIN ASPART (NovoLOG) 100 UNIT/ML VIAL SQ SCH ×7 (08:40→21:26)
--- NOTE | 2019-07-24 08:40 | P.CNPUL ---
History of Present Illness Consult date: 07/24/19 Reason for consult: dyspnea, cough, obstructive sleep apnea Chief complaint: COPD/obstructive sleep apnea History of present illness: This is a 63-year-old female who was seen evaluated examined in the medical floor patient was admitted from the emergency department with episode ache vomiting and nausea started about 3-4 days ago also with progressive generalized weakness no abdominal pain no diarrhea or constipation, no upper respiratory symptoms, denies any chest pain cough or sputum production patient did spike a fever of 103 and white cell count of 13,000 x-ray was unremarkable, patient has been on broad-spectrum antibiotics she is feeling better her fever Petrin is improved, urine and blood cultures have been negative so far, white cell count is improving last check was 11.9 hemoglobin is 8.2, patient has chronic renal failure with BUN/creatinine remains stable 53/2.55, patient has chronic proteinuria and glucosuria due to her diabetes, her flu PCR have been negative, she has sleep study few years ago has been on intermittently on CPAP Review of Systems All systems: negative Past Medical History Past Medical History: Blood Disorder, Coronary Artery Disease (CAD), Heart Failure, Diabetes Mellitus, Hyperlipidemia, Hypertension, Myocardial Infarction ([place]), Renal Disease Additional Past Medical History / Comment(s): edema, seasonal allergies, Diabetic ulcer-SEES DR ZELAYA FOR WOUND CARE, anemia, neuropathy, CKD Last Myocardial Infarction Date:: 01/10/15 History of Any Multi-Drug Resistant Organisms: None Reported Past Surgical History: Heart Catheterization With Stent Additional Past Surgical History / Comment(s): PT HAD STENT TO DISTAL RCA IN DECEMBER 2014, carpal tunnel bilateral hands, Past Anesthesia/Blood Transfusion Reactions: Family History of Problems w/ Anesthesia, Motion Sickness Additional Past Anesthesia/Blood Transfusion Reaction / Comment(s): states mother had difficulty coming out of anesthesia Date of Last Stent Placement:: 12/30 Past Psychological History: Anxiety Smoking Status: Never smoker Past Alcohol Use History: None Reported Past Drug Use History: None Reported - Past Family History Brother(s) Family Medical History: Cancer Sister(s) Family Medical History: Diabetes Mellitus, Hypertension, Myocardial Infarction ([place]), Vascular Disorder Additional Family Medical History / Comment(s): post procedure of five stents Mother Family Medical History: CVA/TIA, Diabetes Mellitus, Myocardial Infarction ([place]) Additional Family Medical History / Comment(s): TIA's, PVD. Mother at age 65yrs. Father Family Medical History: Dementia, Diabetes Mellitus, Hypertension Additional Family Medical History / Comment(s): Father at age 72 yrs. Medications and Allergies Home Medications Medication Instructions Recorded Confirmed Type Loratadine [Claritin] 10 mg PO DAILY 01/05/15 07/22/19 History Aspirin 81 mg PO DAILY 04/16/15 07/22/19 History Insulin Glargine [Lantus] 45 unit SQ BID 01/22/17 07/22/19 History hydrALAZINE HCL [Apresoline] 75 mg PO TID-W/MEALS 08/15/17 07/22/19 History Ferrous Sulfate [Iron (65 MG 325 mg PO DAILY 04/15/18 07/22/19 History Elemental)] Insulin Lispro [Admelog] 15 units SQ AC-TID 10/18/18 07/22/19 History Ergocalciferol [Vitamin D2 50,000 unit PO Q7D 11/28/18 07/22/19 History (DRISDOL)] Insulin Lispro [Admelog] See Protocol SQ AC-TID 11/28/18 07/22/19 History Isosorbide Mononitrate ER [Imdur] 60 mg PO DAILY 12/09/18 07/22/19 History Apixaban [Eliquis] 2.5 mg PO BID #60 tablet 12/23/18 07/22/19 Rx Allopurinol [Zyloprim] 200 mg PO HS 07/22/19 07/22/19 History Atorvastatin [Lipitor] 80 mg PO HS 07/22/19 07/22/19 History Calcitriol 0.5 mcg PO Q7D 07/22/19 07/22/19 History Diltiazem Oral [Cardizem*] 60 mg PO BID 07/22/19 07/22/19 History Metoprolol Tartrate [Lopressor] 75 mg PO BID 07/22/19 07/22/19 History Torsemide [Demadex] 40 mg PO BID 07/22/19 07/22/19 History Allergies Allergy/AdvReac Type Severity Reaction Status Date / Time ciprofloxacin [From Cipro] Allergy Swelling Verified 07/22/19 16:09 ciprofloxacin HCl Allergy Swelling Verified 07/22/19 16:09 [From Cipro] codeine Allergy Unknown Verified 07/22/19 16:09 latex Allergy Itching Verified 07/22/19 12:30 adhesive tape AdvReac Itching Verified 07/22/19 16:09 cephalexin monohydrate AdvReac Rash/Hives Verified 07/22/19 16:09 [From Keflex] sulfamethoxazole AdvReac Itching Verified 07/22/19 16:09 [From Bactrim] trimethoprim [From Bactrim] AdvReac Itching Verified 07/22/19 16:09 Physical Exam Vitals: Vital Signs Temp Pulse Pulse Resp BP Pulse Ox 07/24/19 07:57 80 07/24/19 07:45 76 07/24/19 06:00 98.1 F 79 18 158/78 91 L 07/23/19 23:00 98.5 F 101 H 20 148/71 92 L 07/23/19 21:02 71 14 07/23/19 20:05 97.8 F 71 14 188/82 98 07/23/19 19:28 84 07/23/19 19:15 82 07/23/19 15:45 16 07/23/19 13:40 97.5 F L 60 14 162/67 96 07/23/19 12:06 80 07/23/19 11:54 84 Intake and Output 07/23/19 07/24/19 07/24/19 22:59 06:59 14:59 Intake Total 1480 300 Balance 1480 300 Intake: Oral 1480 300 Other: # Voids 1 1 - Constitutional General appearance: disheveled, morbidly obese, no acute distress - EENT Eyes: EOMI, PERRLA, poor dentition, normal appearance Ears: bilateral: normal - Neck Carotids: bilateral: upstroke normal Thyroid: negative: normal size - Respiratory Respiratory: bilateral: CTA - Cardiovascular Rhythm: regular Heart sounds: normal: S1, S2 - Gastrointestinal General gastrointestinal: normal bowel sounds - Neurologic Neurologic: CNII-XII intact - Musculoskeletal Musculoskeletal: gait normal, generalized weakness, strength equal bilaterally - Psychiatric Psychiatric: A&O x's 3, appropriate affect, intact judgment & insight Results - Laboratory Findings CBC and BMP: 07/23/19 08:50 07/23/19 08:50 PT/INR, D-dimer PT 10.1 sec (9.0-12.0) 07/22/19 13:25 INR 0.9 (<1.2) 07/22/19 13:25 Abnormal lab findings: Abnormal Labs 07/22/19 07/22/19 07/22/19 13:25 13:25 13:25 WBC 13.2 H RBC 2.96 L Hgb 9.3 L Hct 27.0 L Neutrophils # 12.4 H Lymphocytes # 0.3 L APTT BUN 56 H Creatinine 2.17 H Glucose 194 H POC Glucose (mg/dL) Plasma Lactic Acid Sushant 2.1 H* Calcium Urine Protein Urine Glucose (UA) Urine Blood Urine RBC Amorphous Sediment Urine Bacteria Hyaline Casts Urine Mucus 07/22/19 07/22/19 07/22/19 13:25 14:00 21:21 WBC RBC Hgb Hct Neutrophils # Lymphocytes # APTT 21.9 L BUN Creatinine Glucose POC Glucose (mg/dL) 302 H Plasma Lactic Acid Sushant Calcium Urine Protein 3+ H Urine Glucose (UA) 3+ H Urine Blood Small H Urine RBC 9 H Amorphous Sediment Rare H Urine Bacteria Rare H Hyaline Casts 7 H Urine Mucus Occasional H 07/23/19 07/23/19 07/23/19 07:16 08:50 08:50 WBC 11.9 H RBC 2.60 L Hgb 8.2 L Hct 24.2 L Neutrophils # 9.7 H Lymphocytes # APTT BUN 53 H Creatinine 2.55 H Glucose 181 H POC Glucose (mg/dL) 139 H Plasma Lactic Acid Sushant Calcium 8.3 L Urine Protein Urine Glucose (UA) Urine Blood Urine RBC Amorphous Sediment Urine Bacteria Hyaline Casts Urine Mucus 07/23/19 07/23/19 07/23/19 11:29 17:00 20:29 WBC RBC Hgb Hct Neutrophils # Lymphocytes # APTT BUN Creatinine Glucose POC Glucose (mg/dL) 199 H 119 H 149 H Plasma Lactic Acid Sushant Calcium Urine Protein Urine Glucose (UA) Urine Blood Urine RBC Amorphous Sediment Urine Bacteria Hyaline Casts Urine Mucus 07/23/19 07/24/19 22:48 07:20 WBC RBC Hgb Hct Neutrophils # Lymphocytes # APTT BUN Creatinine Glucose POC Glucose (mg/dL) 152 H 196 H Plasma Lactic Acid Sushant Calcium Urine Protein Urine Glucose (UA) Urine Blood Urine RBC Amorphous Sediment Urine Bacteria Hyaline Casts Urine Mucus - Diagnostic Findings Chest x-ray: report reviewed, image reviewed Assessment and Plan Assessment: Fever and sepsis of unclear etiology has been on broad-spectrum antibiotics cultures have been negative fever Petrin is down sepsis appears to be improving with antibiotics and fluids Advanced diabetes mellitus poorly controlled Obstructive sleep apnea and sleep disorder breathing on CPAP intermittently Morbid obesity Possible COPD Chronic renal failure is stage 3-4 Leukocytosis Plan: Continue gentle rehydration Broad-spectrum antibiotics Breathing treatment as needed Continue CPAP machine recommended to bring it from home so she can restart using while in the hospital Further evaluation of COPD and obstructive sleep apnea on outpatient basis Time with Patient: Greater than 30
[2019-07-24] MEDS: FAMOTIDINE 20 MG/2 ML VIAL IV SCH (08:41)
[2019-07-24] MEDS: TORSEMIDE 20 MG TAB PO SCH ×2 (08:41→16:16)
[2019-07-24] MEDS: ISOSORBIDE MONONITRATE ER 60 MG TAB.ER.24H PO SCH (08:41)
[2019-07-24] MEDS: DILTIAZEM ORAL 60 MG TAB PO SCH ×2 (08:44→21:27)
[2019-07-24] MEDS: APIXABAN 2.5 MG TABLET PO SCH ×2 (08:45→21:26)
[2019-07-24] MEDS: hydrALAZINE HCL 25 MG TAB PO SCH ×4 (08:46→17:28)
[2019-07-24 08:51] LABS: Basophils # (A) 0.1 k/uL (0-0.2); Basophils % (A) 1 %; Eosinophils # (A) 0.1 k/uL (0-0.7); Eosinophils % (A) 0 %; HCT 26.2 % (34.0-46.0); HGB 8.6 gm/dL (11.4-16.0); Lymphocytes # (A) 0.9 k/uL (1.0-4.8); Lymphocytes % (A) 6 %; MCH 30.6 pg (25.0-35.0); MCHC 32.8 g/dL (31.0-37.0); MCV 93.4 fL (80.0-100.0); Mean Platelet Volume 6.9; Monocytes # (A) 0.5 k/uL (0-1.0); Monocytes % (A) 4 %; Neutrophils # (A) 12.2 k/uL (1.3-7.7); Neutrophils % (A) 88 %; Platelet Count 243 k/uL (150-450); RDW 14.5 % (11.5-15.5); WBC 13.8 k/uL (3.8-10.6)
[2019-07-24] MEDS: AZTREONAM 1 GM in SODIUM CHLORIDE 0.9% 50 ML IVPB SCH ×2 (08:56→16:16)
[2019-07-24 09:03] LABS: Calcium 8.5 mg/dL (8.4-10.2)
--- NOTE | 2019-07-24 10:58 | P.PN ---
Subjective Patient is seen in follow-up for acute kidney injury on chronic kidney disease. Renal function is a little worse today. Creatinine 2.9. She is maintained on torsemide 40 mg twice daily. Admits to mild edema in the lower extremity is. Urine output is good. No vomiting or diarrhea. Vital signs are stable. General: The patient appeared well nourished and normally developed. HEENT: Head exam is unremarkable. Neck is without jugular venous distension. LUNGS: Lungs are clear to auscultation and percussion. Breath sounds decreased. HEART: Rate and Rhythm are regular. First and second heart sounds normal. No murmurs, rubs or gallops. ABDOMEN: Abdominal exam reveals normal bowel sounds. Non-tender and non- distended. No evidence of peritonitis. EXTREMITITES: Trace edema. Objective - Vital Signs Vital signs: Vital Signs Temp 98.1 F 07/24/19 06:00 Pulse 80 07/24/19 07:57 Resp 18 07/24/19 06:00 BP 158/78 07/24/19 06:00 Pulse Ox 91 L 07/24/19 06:00 Intake & Output 07/23/19 07/24/19 07/24/19 18:59 06:59 18:59 Intake Total 1620 700 Balance 1620 700 Intake: Oral 1620 700 Other: # Voids 2 1 - Labs CBC & Chem 7: 07/24/19 08:11 07/24/19 08:11 Labs: Abnormal Lab Results - Last 24 Hours (Table) 07/23/19 07/23/19 07/23/19 Range/Units 11:29 17:00 20:29 WBC (3.8-10.6) k/uL RBC (3.80-5.40) m/uL Hgb (11.4-16.0) gm/dL Hct (34.0-46.0) % Neutrophils # (1.3-7.7) k/uL Lymphocytes # (1.0-4.8) k/uL BUN (7-17) mg/dL Creatinine (0.52-1.04) mg/dL Glucose (74-99) mg/dL POC Glucose (mg/dL) 199 H 119 H 149 H (75-99) mg/dL 07/23/19 07/24/19 07/24/19 Range/Units 22:48 07:20 08:11 WBC 13.8 H (3.8-10.6) k/uL RBC 2.80 L (3.80-5.40) m/uL Hgb 8.6 L (11.4-16.0) gm/dL Hct 26.2 L (34.0-46.0) % Neutrophils # 12.2 H (1.3-7.7) k/uL Lymphocytes # 0.9 L (1.0-4.8) k/uL BUN (7-17) mg/dL Creatinine (0.52-1.04) mg/dL Glucose (74-99) mg/dL POC Glucose (mg/dL) 152 H 196 H (75-99) mg/dL 07/24/19 Range/Units 08:11 WBC (3.8-10.6) k/uL RBC (3.80-5.40) m/uL Hgb (11.4-16.0) gm/dL Hct (34.0-46.0) % Neutrophils # (1.3-7.7) k/uL Lymphocytes # (1.0-4.8) k/uL BUN 60 H (7-17) mg/dL Creatinine 2.90 H (0.52-1.04) mg/dL Glucose 190 H (74-99) mg/dL POC Glucose (mg/dL) (75-99) mg/dL Microbiology - Last 24 Hours (Table) 07/22/19 13:25 Blood Culture - Preliminary Blood No Growth after 24 hours 07/22/19 14:00 Urine Culture - Preliminary Urine,Clean Catch Assessment and Plan Plan: Assessment: 1. Mild acute kidney injury secondary to cardiorenal syndrome. Creatinine 2.9 today. 2. Chronic kidney disease stage IV secondary to diabetic kidney disease and cardiorenal syndrome. Baseline creatinine near 2.3. 3. Diabetes mellitus. 4. Acute on chronic diastolic CHF. 5. Fever. Likely viral. Cultures negative. CT of the abdomen and pelvis negative. Infectious disease following. 6. Chronic kidney disease mineral bone disease maintained on calcitriol. Plan: Maintain torsemide 40 mg orally twice daily. Avoid nephrotoxins. Advised patient to monitor her weight closely at home and to call our office if gains more than 3 pounds. Follow-up outpatient in the next 2 weeks.
[2019-07-24 12:29] LABS: Glucose,Whole Blood 278 mg/dL (75-99)
[2019-07-24 17:05] LABS: Glucose,Whole Blood 163 mg/dL (75-99)
--- NOTE | 2019-07-24 18:08 | PN ---
PROGRESS NOTE DATE OF SERVICE: 07/24/2019 This 64-year-old woman was admitted with fever and other multiple medical issues, not feeling well today. The patient apparently admitted with possible pneumonia. The patient is on antibiotics. The chest x-ray also showed some fluid overload. White count is still elevated at 13.2. Multiple consultants are following the patient closely. The cultures are negative so far. Creatinine is elevated at 2.90. PAST MEDICAL HISTORY: Reviewed. REVIEW OF SYSTEM: CARDIOVASCULAR: No angina or palpitations. RESPIRATION: As mentioned earlier. GASTROINTESTINAL: As mentioned earlier. no dysuria. NERVOUS SYSTEM: No numbness or weakness. CURRENT MEDICATIONS: Reviewed and include: 1. DuoNeb q.i.d. and p.r.n. 2. Xanax 0.5 t.i.d. 3. Eliquis 2.5 mg b.i.d. 4. Lipitor 80 mg q.h.s. 5. Aztreonam 1 g q8h. 6. Rocaltrol 0.5 q.7 days. 7. Cardizem. 8. Vitamin D2. 9. Pepcid. 10.Apresoline. 11.NovoLog. 12.Levemir. 13.Imdur. 14.Claritin. 15.Lopressor. 16.Narcan. 17.Zofran. 18.Restoril. 19.Demadex. 20.Doses reviewed. PHYSICAL EXAMINATION: Alert and oriented x2. Pulse 63, blood pressure 116/66, respiration 15, temperature 97.8, pulse ox 91 percent. HEENT: Conjunctivae normal. NECK: No JVD. CARDIOVASCULAR: S1, S2 muffled. RESPIRATORY: Breath sounds diminished in the bases. Scattered rhonchi and crackles. ABDOMEN: Soft, obese, nontender. LEGS: Minimal bilateral leg edema. NERVOUS SYSTEM: No focal deficits. LABS: At this time: WBC 13.5, hemoglobin is 8.6, creatinine is 2.90. ASSESSMENT: 1. Fever, possible acute right lower lobe pneumonia possibly gram-negative with sepsis with acute hypoxic respiratory failure present on admission. 2. Increased creatinine with chronic kidney stage III. 3. Elevated plasma lactic acid secondary to sepsis. 4. Possible congestive heart failure, acute exacerbation with acute on chronic diastolic dysfunction. 5. Fever improved. 6. Increased WBC. 7. Anemia, normocytic anemia of chronic disease. 8. History of coronary artery disease stent. 9. Diabetes type 2. 10.Hypertension. 11.Hyperlipidemia. 12.History of myocardial infarction. 13.History of seasonal allergies. 14.History of diabetic ulcer. 15.History of chronic kidney disease. 16.History of anxiety. 17.Obesity with body mass index of 42.3. 18.FULL CODE. RECOMMENDATIONS AND DISCUSSION: I recommend to continue current medications, monitoring, management and symptomatic treatment. Otherwise, at this time, I recommend continue with broad-spectrum IV antibiotics. Continue with diuretics, otherwise 1 dose was given. Continue the rest of medication. Monitor fluid and electrolytes balance closely. I would recommend a repeat chest x-ray and guarded prognosis. Further recommendations to follow. MMODL / IJN: [id number] /
[2019-07-24 21:21] LABS: Glucose,Whole Blood 190 mg/dL (75-99)
[2019-07-24 21:23] VITALS: RESP 18
[2019-07-24] MEDS: ATORVASTATIN 80 MG TAB PO SCH (21:26)
--- NOTE | 2019-07-24 23:36 | PN ---
PROGRESS NOTE DATE OF SERVICE: 07/24/2019 REASON FOR FOLLOWUP: Fever. INTERVAL HISTORY: The patient is currently afebrile. The patient has been breathing comfortably. The patient denies having any chest pain or shortness of breath or cough. No nausea or vomiting. No abdominal pain and no diarrhea. PHYSICAL EXAMINATION: Blood pressure 168/83 with a pulse of 77, temperature 98.3. She is 96% on 2 L nasal cannula. General description is a middle-aged female up in the bed in no distress. RESPIRATORY SYSTEM: Unlabored breathing with decreased breath sounds at the base. No wheeze. HEART: S1, S2. Regular rate and rhythm. ABDOMEN: Soft. No tenderness. LABS: Hemoglobin 8.6, white count 13,000. Culture has been negative so far. DIAGNOSTIC IMPRESSION AND PLAN: Patient with acute nausea, vomiting and a fever with a question of possible viral gastritis, as she does not have other clinical focus of infection. The patient did have an ultrasound of the abdomen and CT that have been negative for any inflammation. Currently covered with Azactam. It may be discontinued on discharge. Continue with supportive care. MMODL / IJN: [id number] /
[2019-07-25] MEDS: AZTREONAM 1 GM in SODIUM CHLORIDE 0.9% 50 ML IVPB SCH ×2 (00:18→07:12)
[2019-07-25] MEDS: hydrALAZINE HCL 25 MG TAB PO SCH (07:08)
[2019-07-25] MEDS: LORATADINE 10 MG TAB PO SCH (07:08)
[2019-07-25] MEDS: METOPROLOL TARTRATE 25 MG TAB PO SCH (07:08)
[2019-07-25] MEDS: APIXABAN 2.5 MG TABLET PO SCH (07:09)
[2019-07-25] MEDS: ISOSORBIDE MONONITRATE ER 60 MG TAB.ER.24H PO SCH (07:09)
[2019-07-25] MEDS: FAMOTIDINE 20 MG TAB PO SCH ×2 (07:09→08:25)
[2019-07-25] MEDS: IPRATROPIUM-ALBUTEROL 3 ML NEB INHALATION SCH ×2 (07:11→11:06)
[2019-07-25] MEDS: TORSEMIDE 20 MG TAB PO SCH (07:11)
[2019-07-25] MEDS: DILTIAZEM ORAL 60 MG TAB PO SCH (07:12)
[2019-07-25] MEDS: INSULIN DETEMIR (LEVEMIR) 100 UNIT/ML SYR SQ SCH (07:13)
[2019-07-25 07:14] LABS: Glucose,Whole Blood 190 mg/dL (75-99)
[2019-07-25 07:20] VITALS: BP 157/78; TEMP 97.1
[2019-07-25] MEDS: INSULIN ASPART (NovoLOG) 100 UNIT/ML VIAL SQ SCH ×4 (07:42→12:28)
[2019-07-25] MEDS ORDERED: CALCITRIOL 0.25 MCG CAP PO SCH (09:00)
[2019-07-25 09:15] LABS: Calcium 8.7 mg/dL (8.4-10.2); Potassium 4.5 mmol/L (3.5-5.1)
[2019-07-25 09:32] LABS: Basophils # (A) 0.1 k/uL (0-0.2); Basophils % (A) 1 %; Eosinophils # (A) 0.3 k/uL (0-0.7); Eosinophils % (A) 3 %; HCT 24.9 % (34.0-46.0); HGB 8.4 gm/dL (11.4-16.0); Lymphocytes # (A) 1.1 k/uL (1.0-4.8); Lymphocytes % (A) 12 %; MCH 31.5 pg (25.0-35.0); MCHC 33.8 g/dL (31.0-37.0); MCV 93.1 fL (80.0-100.0); Mean Platelet Volume 6.7; Monocytes # (A) 0.5 k/uL (0-1.0); Monocytes % (A) 5 %; Neutrophils # (A) 6.7 k/uL (1.3-7.7); Neutrophils % (A) 75 %; Platelet Count 217 k/uL (150-450); RBC 2.68 m/uL (3.80-5.40); RDW 14.4 % (11.5-15.5); WBC 8.9 k/uL (3.8-10.6)
[2019-07-25 11:18] VITALS: PULSE 76
[2019-07-25 12:02] LABS: Glucose,Whole Blood 257 mg/dL (75-99)
--- NOTE | 2019-07-25 13:54 | PN ---
PROGRESS NOTE DATE OF SERVICE: 07/25/2019 REASON FOR FOLLOWUP: Fever and vomiting, possible viral gastritis. INTERVAL HISTORY: The patient is currently afebrile. No fever has been recorded since the patient has been in the hospital. The patient denies having any URI symptoms. No chest pain, shortness of breath or cough. Has been tolerating a regular diet. No further vomiting. Denies having diarrhea. Did have a regular bowel movement. PHYSICAL EXAMINATION: Blood pressure is 157/78 with a pulse of 70, temperature 97.1. She is 96% 2 L nasal cannula. General description is a middle-aged female up in the bed in no distress. RESPIRATORY SYSTEM: Unlabored breathing with decreased breath sounds at the bases. No wheeze. HEART: S1, S2. Regular rate and rhythm. ABDOMEN: Soft, no tenderness. LABS: Hemoglobin 8.4, white count 8.9. Creatinine is up to 2.97. DIAGNOSTIC IMPRESSION AND PLAN: Patient admitted to the hospital with fever and vomiting with possible gastritis. Did have an ultrasound as well as CT did not show any intraabdominal pathology. Culture has been negative. No need for antibiotic on discharge. Did have slight worsening of the kidney function may benefit from Nephrology evaluation. Continue supportive care. MMODL / IJN: [id number] /
--- NOTE | 2019-07-25 14:39 | P.DS ---
Providers Date of admission: 07/24/19 10:52 Expected date of discharge: 07/25/19 Attending physician: Aylin Seymour Consults: 07/22/19 16:01 Consult Physician Routine Consulting Provider: Calin Crespo Consult Reason/Comments: fever Do you want consulting provider notified?: Yes 07/22/19 16:02 Consult Physician Routine Consulting Provider: Rajat Thakkar Consult Reason/Comments: copd? Do you want consulting provider notified?: Yes 07/23/19 17:18 Consult Physician Routine Consulting Provider: Aura John Consult Reason/Comments: arf Do you want consulting provider notified?: Yes Primary care physician: [facility] Course: Final diagnosis Fever, possible acute right lower lobe pneumonia, possibly gram-negative sepsis with acute hypoxic respiratory failure, present on admission Increased creatinine with chronic kidney disease stage III Elevated plasma lactic acid secondary to sepsis Possible congestive heart failure, acute exacerbation with acute on chronic diastolic dysfunction Fever improved Increased WBC Anemia, normocytic anemia of chronic disease History of coronary artery disease/stent Diabetes mellitus type 2 hypertension Hyperlipidemia History of myocardial infarction history of seasonal ALLERGIES History of diabetic ulcer History of chronic kidney disease History of anxiety Obesity with a body mass index of 42.3 Full code Discharge disposition Patient is being discharged in a stable condition with guarded prognosis to home and will follow-up with primary care provider upon discharge. Patient will follow-up with crematory attendant in 2 weeks. Total time taken is 35 minutes. History of present illness This is a 64-year-old woman who was recently admitted with fever, possible pneumonia, and other multiple medical issues. Multiple medical consultations were following. During hospitalization patient was on IV antibiotics in the form of aztreonam and cultures remained negative. Patient will follow-up with nephrology in the outpatient setting in 1-2 weeks and was instructed to monitor weight daily and call the office sooner if noticing a weight gain of over 3 pounds in a day. Patient will also follow-up with pulmonary in the outpatient setting upon discharge. During hospitalization patient underwent an abdomen pelvis CT was negative. Patient will need repeat labs in 2-3 days to monitor electrolytes as well as CBC. Discussed with the patient at length about continuing breathing treatments and patient states that she does have a nebulizer at home but was unsure the ampules and scripts were written for discharge. Currently patient's condition is stable with much improvement and would like to go home today. Patient denies any chest pain, shortness of breath, or palpitations at this time. Patient has been afebrile. Patient denies any nausea or vomiting and has been tolerating diet. Patient's abdominal discomfort has subsided. During hospitalization patient's blood sugars were slightly elevated and patient will continue with monitoring blood sugars before meals at bedtime was instructed to keep a diary of her blood sugar readings for primary care provider follow-up. Guarded prognosis. On exam vital signs are stable. Temp is 97.1F, pulse is 70, respirations are 18, blood pressure is 157/78, oxygen saturation is 96% on 2 L via nasal cannula. Cardio S1 and S2 are muffled. Respiratory system shows diminished breath sounds at the bases with a few scattered rhonchi noted. Abdomen is soft, obese, nontender. Nervous system shows no focal deficits Please refer to medication reconciliation sheet for a list of medications. Patient Condition at Discharge: Fair Plan - Discharge Summary New Discharge Prescriptions: New Ipratropium-Albuterol Nebulize [Duoneb 0.5 mg-3 mg/3 ml Soln] 3 ml INHALATION RT-TID 30 Days #90 ampul.neb Ipratropium-Albuterol Nebulize [Duoneb 0.5 mg-3 mg/3 ml Soln] 3 ml INHALATION RT-TID PRN 30 Days #90 ampul.neb PRN Reason: Shortness Of Breath Or Wheezing Famotidine [Pepcid] 20 mg PO DAILY 30 Days #30 tab Continue Loratadine [Claritin] 10 mg PO DAILY Aspirin 81 mg PO DAILY Insulin Glargine [Lantus] 45 unit SQ BID hydrALAZINE HCL [Apresoline] 75 mg PO TID-W/MEALS Ferrous Sulfate [Iron (65 MG Elemental)] 325 mg PO DAILY Insulin Lispro [Admelog] 15 units SQ AC-TID Ergocalciferol [Vitamin D2 (DRISDOL)] 50,000 unit PO Q7D Insulin Lispro [Admelog] See Protocol SQ AC-TID Isosorbide Mononitrate ER [Imdur] 60 mg PO DAILY Apixaban [Eliquis] 2.5 mg PO BID #60 tablet Atorvastatin [Lipitor] 80 mg PO HS Calcitriol 0.5 mcg PO Q7D Diltiazem Oral [Cardizem*] 60 mg PO BID Metoprolol Tartrate [Lopressor] 75 mg PO BID Torsemide [Demadex] 40 mg PO BID Allopurinol [Zyloprim] 200 mg PO HS Discharge Medication List Loratadine [Claritin] 10 mg PO DAILY 01/05/15 [History] Aspirin 81 mg PO DAILY 04/16/15 [History] Insulin Glargine [Lantus] 45 unit SQ BID 01/22/17 [History] hydrALAZINE HCL [Apresoline] 75 mg PO TID-W/MEALS 08/15/17 [History] Ferrous Sulfate [Iron (65 MG Elemental)] 325 mg PO DAILY 04/15/18 [History] Insulin Lispro [Admelog] 15 units SQ AC-TID 10/18/18 [History] Ergocalciferol [Vitamin D2 (DRISDOL)] 50,000 unit PO Q7D 11/28/18 [History] Insulin Lispro [Admelog] See Protocol SQ AC-TID 11/28/18 [History] Isosorbide Mononitrate ER [Imdur] 60 mg PO DAILY 12/09/18 [History] Apixaban [Eliquis] 2.5 mg PO BID #60 tablet 12/23/18 [Rx] Allopurinol [Zyloprim] 200 mg PO HS 07/22/19 [History] Atorvastatin [Lipitor] 80 mg PO HS 07/22/19 [History] Calcitriol 0.5 mcg PO Q7D 07/22/19 [History] Diltiazem Oral [Cardizem*] 60 mg PO BID 07/22/19 [History] Metoprolol Tartrate [Lopressor] 75 mg PO BID 07/22/19 [History] Torsemide [Demadex] 40 mg PO BID 07/22/19 [History] Famotidine [Pepcid] 20 mg PO DAILY 30 Days #30 tab 07/25/19 [Rx] Ipratropium-Albuterol Nebulize [Duoneb 0.5 mg-3 mg/3 ml Soln] 3 ml INHALATION RT-TID 30 Days #90 ampul.neb 07/25/19 [Rx] Ipratropium-Albuterol Nebulize [Duoneb 0.5 mg-3 mg/3 ml Soln] 3 ml INHALATION RT-TID PRN 30 Days #90 ampul.neb 07/25/19 [Rx] Follow up Appointment(s)/Referral(s): Gale Amin MD [Primary Care Provider] - 08/01/19 10:45 am Kash Steinberg DO [STAFF PHYSICIAN] - 2 Weeks (office will call with appt time and date. ) Isaiah Cortés MD [STAFF PHYSICIAN] - 07/31/19 2:45 pm ([address] [place] [address] office) Ambulatory/Diagnostic Orders: Basic Metabolic Panel [LAB.AMB] Time Frame: 3 Days, Location: None Selected Complete Blood Count w/diff [LAB.AMB] Time Frame: 3 Days, Location: None Selected Patient Instructions/Handouts: Acute Nausea and Vomiting (DC) Activity/Diet/Wound Care/Special Instructions: Activity Limited until follow-up Continue current diet Continue to monitor blood sugars before meals at bedtime and keep a diary and b ring with you at primary care follow-up Follow-up with nephrology in 1-2 weeks Follow-up with primary care provider upon discharge Discharge Disposition: HOME SELF-CARE
--- NOTE | 2019-07-25 15:17 | P.PN ---
Subjective Progress Note Date: 07/25/19 Principal diagnosis: Fever and sepsis of unclear etiology has been on broad-spectrum antibiotics cultures have been negative fever Petrin is down sepsis appears to be improving with antibiotics and fluids Advanced diabetes mellitus poorly controlled Obstructive sleep apnea and sleep disorder breathing on CPAP intermittently Morbid obesity Possible COPD Chronic renal failure is stage 3-4 Leukocytosis 07/25/2019, patient seen eval reexamined during the rounds labs reviewed medications reviewed care plan discussed with the patient at length overall doing well cuff congestion shortness breath is improved patient likely will be discharged later on today This is a 63-year-old female who was seen evaluated examined in the medical floor patient was admitted from the emergency department with episode ache vomiting and nausea started about 3-4 days ago also with progressive generalized weakness no abdominal pain no diarrhea or constipation, no upper respiratory symptoms, denies any chest pain cough or sputum production patient did spike a fever of 103 and white cell count of 13,000 x-ray was unremarkable, patient has been on broad-spectrum antibiotics she is feeling better her fever Petrin is improved, urine and blood cultures have been negative so far, white cell count is improving last check was 11.9 hemoglobin is 8.2, patient has chronic renal failure with BUN/creatinine remains stable 53/2.55, patient has chronic proteinuria and glucosuria due to her diabetes, her flu PCR have been negative, she has sleep study few years ago has been on intermittently on CPAP Objective - Vital Signs Vital signs: Vital Signs Temp 97.1 F L 07/25/19 05:00 Pulse 76 07/25/19 11:17 Resp 18 07/25/19 05:00 BP 157/78 07/25/19 05:00 Pulse Ox 93 L 07/25/19 11:53 Intake & Output 07/24/19 07/25/19 07/25/19 18:59 06:59 18:59 Intake Total 750 Balance 750 Weight 136.5 kg Intake: Oral 750 Other: # Voids 3 3 2 - Exam - Constitutional General appearance: disheveled, morbidly obese, no acute distress - EENT Eyes: EOMI, PERRLA, poor dentition, normal appearance Ears: bilateral: normal - Neck Carotids: bilateral: upstroke normal Thyroid: negative: normal size - Respiratory Respiratory: bilateral: CTA - Cardiovascular Rhythm: regular Heart sounds: normal: S1, S2 - Gastrointestinal General gastrointestinal: normal bowel sounds - Neurologic Neurologic: CNII-XII intact - Musculoskeletal Musculoskeletal: gait normal, generalized weakness, strength equal bilaterally - Psychiatric Psychiatric: A&O x's 3, appropriate affect, intact judgment & insight - Labs CBC & Chem 7: 07/25/19 07:32 07/25/19 07:32 Labs: Abnormal Lab Results - Last 24 Hours (Table) 07/24/19 07/24/19 07/25/19 Range/Units 17:02 20:54 07:06 RBC (3.80-5.40) m/uL Hgb (11.4-16.0) gm/dL Hct (34.0-46.0) % BUN (7-17) mg/dL Creatinine (0.52-1.04) mg/dL Glucose (74-99) mg/dL POC Glucose (mg/dL) 163 H 190 H 190 H (75-99) mg/dL 07/25/19 07/25/19 07/25/19 Range/Units 07:32 07:32 11:59 RBC 2.68 L (3.80-5.40) m/uL Hgb 8.4 L (11.4-16.0) gm/dL Hct 24.9 L (34.0-46.0) % BUN 68 H (7-17) mg/dL Creatinine 2.97 H (0.52-1.04) mg/dL Glucose 149 H (74-99) mg/dL POC Glucose (mg/dL) 257 H (75-99) mg/dL Microbiology - Last 24 Hours (Table) 07/22/19 13:25 Blood Culture - Preliminary Blood No Growth after 48 hours 07/22/19 14:00 Urine Culture - Final Urine,Clean Catch Assessment and Plan Assessment: Fever and sepsis of unclear etiology has been on broad-spectrum antibiotics cultures have been negative fever Petrin is down sepsis appears to be improving with antibiotics and fluids Advanced diabetes mellitus poorly controlled Obstructive sleep apnea and sleep disorder breathing on CPAP intermittently Morbid obesity Possible COPD Chronic renal failure is stage 3-4 Leukocytosis Plan: Continue gentle rehydration Broad-spectrum antibiotics Breathing treatment as needed Continue CPAP machine recommended to bring it from home so she can restart using while in the hospital Further evaluation of COPD and obstructive sleep apnea on outpatient basis Time with Patient: Greater than 30
[2019-07-26] MEDS ORDERED: ERGOCALCIFEROL 50,000 UNIT CAP PO SCH (09:00)
== END 2019-07-25 13:39 | disposition home or self-care (01) | DRG 871 ==
LOC: EC 12:24 → 4MS4W 14:57 → OBSVTOIN 07-24 10:52
PROVIDERS: ADMIT Hospitalist; ATTEND Hospitalist
DX: A41.50 Gram-negative sepsis, unspecified (principal); J96.01 Acute respiratory failure with hypoxia; J18.9 Pneumonia, unspecified organism; I50.33 Acute on chronic diastolic (congestive) heart failure; J44.0 Chronic obstructive pulmonary disease with (acute) lower respiratory infection; I13.0 Hypertensive heart and chronic kidney disease with heart failure and stage 1 through stage 4 chronic kidney disease, or unspecified chronic kidney disease; Z68.41 Body mass index [BMI] 40.0-44.9, adult; N18.4 Chronic kidney disease, stage 4 (severe); N17.9 Acute kidney failure, unspecified; I25.10 Atherosclerotic heart disease of native coronary artery without angina pectoris; D63.1 Anemia in chronic kidney disease; E11.22 Type 2 diabetes mellitus with diabetic chronic kidney disease; E78.5 Hyperlipidemia, unspecified; E11.42 Type 2 diabetes mellitus with diabetic polyneuropathy; F41.9 Anxiety disorder, unspecified; E11.65 Type 2 diabetes mellitus with hyperglycemia; E83.89 Other disorders of mineral metabolism; E66.01 Morbid (severe) obesity due to excess calories; J30.2 Other seasonal allergic rhinitis; G47.33 Obstructive sleep apnea (adult) (pediatric); I27.20 Pulmonary hypertension, unspecified; I25.2 Old myocardial infarction; Z88.5 Allergy status to narcotic agent; Z88.1 Allergy status to other antibiotic agents; Z91.040 Latex allergy status; Z88.2 Allergy status to sulfonamides; Z91.048 Other nonmedicinal substance allergy status; Z79.82 Long term (current) use of aspirin; Z79.4 Long term (current) use of insulin; Z79.51 Long term (current) use of inhaled steroids; Z79.01 Long term (current) use of anticoagulants; Z79.1 Long term (current) use of non-steroidal anti-inflammatories (NSAID); Z79.899 Other long term (current) drug therapy; Z95.5 Presence of coronary angioplasty implant and graft; Z86.2 Personal history of diseases of the blood and blood-forming organs and certain disorders involving the immune mechanism; Z98.890 Other specified postprocedural states; Z82.3 Family history of stroke; Z82.61 Family history of arthritis; Z81.8 Family history of other mental and behavioral disorders; Z80.9 Family history of malignant neoplasm, unspecified
CPT/HCPCS: 36410; 36415; 71045; 71046; 74176; 76700; 76937; 80048; 80053; 81001; 83605; 85025; 85610; 85730; 87040; 87086; 87502; 93005; 94640; 94760; 96361; 96374; 99285

== ENCOUNTER 2019-07-30 17:49 | Inpatient (IN) | payer OTHER ==
[2019-07-30] MEDS ORDERED: SODIUM CHLORIDE 0.9% 1,000 ML IV STA (18:12)
[2019-07-30] MEDS ORDERED: IPRATROPIUM-ALBUTEROL 3 ML NEB INHALATION STA (18:13)
--- NOTE | 2019-07-30 18:35 | ED ---
General Adult HPI - General Chief complaint: Shortness of Breath Stated complaint: CHERYL Time Seen by Provider: 07/30/19 17:58 Source: EMS, RN notes reviewed, old records reviewed Mode of arrival: EMS Limitations: no limitations - History of Present Illness Initial comments: 64-year-old female patient with multiple comorbidities including anemia of chronic disease, chronic kidney disease, CHF, type 2 diabetes, coronary artery disease presents ED chief complaint of exertional dyspnea. Patient was recently discharged on 07/25/19 for possible pneumonia as well as intractable nausea and vomiting. Patient reports that since returning home she has expands exertional dyspnea. Patient also reports that she just generally feels unwell. Patient reports that when she gets up and walks short distances she is short of breath. Patient denies any chest pain. Patient denies any pain in any other areas. Patient reports that she feels as if she felt in the past when she was anemic. Patient denies any hematochezia or tarry stools. Patient does take eliquis but is generally noncompliant due to insurance issues. Denies any other complaints. Systemic: Pt denies fever/chills, rash. Pt denies weakness, night sweats, weight loss. Neuro: Pt denies headache, visual disturbances, syncope or pre-syncope. HEENT: Pt denies ocular discharge or irritation, otalgia, rhinorrhea, pharyngitis or notable lymphadenopathy. Cardiopulmonary: Pt denies chest pain, SOB, heart palpitations, dyspnea on exertion. Abdominal/GI: Pt denies abdominal pain, n/v/d. : Pt denies dysuria, burning w/ urination, frequency/urgency. Denies new onset urinary or bowel incontinence. MSK: Pt denies myalgia, loss of strength or function in extremities. Neuro: Pt denies new onset weakness, paresthesias. - Related Data Home Medications Medication Instructions Recorded Confirmed Loratadine [Claritin] 10 mg PO DAILY 01/05/15 07/22/19 Aspirin 81 mg PO DAILY 04/16/15 07/22/19 Insulin Glargine [Lantus] 45 unit SQ BID 01/22/17 07/22/19 hydrALAZINE HCL [Apresoline] 75 mg PO TID-W/MEALS 08/15/17 07/22/19 Ferrous Sulfate [Iron (65 MG 325 mg PO DAILY 04/15/18 07/22/19 Elemental)] Insulin Lispro [Admelog] 15 units SQ AC-TID 10/18/18 07/22/19 Ergocalciferol [Vitamin D2 50,000 unit PO Q7D 11/28/18 07/22/19 (DRISDOL)] Insulin Lispro [Admelog] See Protocol SQ AC-TID 11/28/18 07/22/19 Isosorbide Mononitrate ER [Imdur] 60 mg PO DAILY 12/09/18 07/22/19 Allopurinol [Zyloprim] 200 mg PO HS 07/22/19 07/22/19 Atorvastatin [Lipitor] 80 mg PO HS 07/22/19 07/22/19 Calcitriol 0.5 mcg PO Q7D 07/22/19 07/22/19 Diltiazem Oral [Cardizem*] 60 mg PO BID 07/22/19 07/22/19 Metoprolol Tartrate [Lopressor] 75 mg PO BID 07/22/19 07/22/19 Torsemide [Demadex] 40 mg PO BID 07/22/19 07/22/19 Previous Rx's Medication Instructions Recorded Apixaban [Eliquis] 2.5 mg PO BID #60 tablet 12/23/18 Famotidine [Pepcid] 20 mg PO DAILY 30 Days #30 tab 07/25/19 Ipratropium-Albuterol Nebulize 3 ml INHALATION RT-TID 30 Days #90 07/25/19 [Duoneb 0.5 mg-3 mg/3 ml Soln] ampul.neb Ipratropium-Albuterol Nebulize 3 ml INHALATION RT-TID PRN 30 Days 07/25/19 [Duoneb 0.5 mg-3 mg/3 ml Soln] #90 ampul.neb Allergies Allergy/AdvReac Type Severity Reaction Status Date / Time ciprofloxacin [From Cipro] Allergy Swelling Verified 07/22/19 16:09 ciprofloxacin HCl Allergy Swelling Verified 07/22/19 16:09 [From Cipro] codeine Allergy Unknown Verified 07/22/19 16:09 latex Allergy Itching Verified 07/22/19 12:30 adhesive tape AdvReac Itching Verified 07/22/19 16:09 cephalexin monohydrate AdvReac Rash/Hives Verified 07/22/19 16:09 [From Keflex] sulfamethoxazole AdvReac Itching Verified 07/22/19 16:09 [From Bactrim] trimethoprim [From Bactrim] AdvReac Itching Verified 07/22/19 16:09 Review of Systems ROS Statement: Those systems with pertinent positive or pertinent negative responses have been documented in the HPI. ROS Other: All systems not noted in ROS Statement are negative. Past Medical History Past Medical History: Blood Disorder, Coronary Artery Disease (CAD), Heart Failure, Diabetes Mellitus, Hyperlipidemia, Hypertension, Myocardial Infarction (ID), Renal Disease Additional Past Medical History / Comment(s): edema, seasonal allergies, Diabetic ulcer-SEES DR ZELAYA FOR WOUND CARE, anemia, neuropathy, CKD Last Myocardial Infarction Date:: 01/10/15 History of Any Multi-Drug Resistant Organisms: None Reported Past Surgical History: Heart Catheterization With Stent Additional Past Surgical History / Comment(s): PT HAD STENT TO DISTAL RCA IN DECEMBER 2014, carpal tunnel bilateral hands, Past Anesthesia/Blood Transfusion Reactions: Family History of Problems w/ Anesthesia, Motion Sickness Additional Past Anesthesia/Blood Transfusion Reaction / Comment(s): states mother had difficulty coming out of anesthesia Date of Last Stent Placement:: 12/30 Past Psychological History: Anxiety Smoking Status: Never smoker Past Alcohol Use History: None Reported Past Drug Use History: None Reported - Past Family History Brother(s) Family Medical History: Cancer Sister(s) Family Medical History: Diabetes Mellitus, Hypertension, Myocardial Infarction (ID), Vascular Disorder Additional Family Medical History / Comment(s): post procedure of five stents Mother Family Medical History: CVA/TIA, Diabetes Mellitus, Myocardial Infarction (ID) Additional Family Medical History / Comment(s): TIA's, PVD. Mother at age 65yrs. Father Family Medical History: Dementia, Diabetes Mellitus, Hypertension Additional Family Medical History / Comment(s): Father at age 72 yrs. General Exam - General Exam Comments Initial Comments: Constitutional: NAD, AOX3, Pt has pleasant affect. HEENT: NC/AT, trachea midline, neck supple, no lymphadenopathy. Posterior pharynx non erythematous, without exudates. External ears appear normal, without discharge. Mucous membranes moist. Eyes PERRLA, EOM intact. There is no scleral icterus. No pallor noted. Cardiopulmonary: RRR, no murmurs, rubs or gallops, no JVD noted. Crackles at bases of lungs. Upper lobes clear. No peripheral edema. Abdominal exam: Abdomen soft and non-distended. Abdomen non-tender to palpation in all 4 quadrants. Bowel sounds active in LLQ. No hepatosplenomegaly. No ecchymosis Neuro: CN II-XII grossly intact. No nuchal rigidity. No raccon eyes, no fatima sign, no hemotympanum. No cervical spinal tenderness. MSK: No posterior calf tenderness bilaterally, homans sign negative bilaterally. Posterior tibialis and radial pulse +2 bilaterally. Sensation intact in upper and lower extremities. Full active ROM in upper and lower extremities, 5/5 stregnth. Limitations: no limitations Course Vital Signs 07/30/19 07/30/19 07/30/19 17:52 18:00 18:30 Temperature 97.9 F Pulse Rate 86 74 Respiratory 18 16 Rate Blood Pressure 180/67 O2 Sat by Pulse 94 L 97 Oximetry 07/30/19 07/30/19 07/30/19 18:36 19:23 20:28 Temperature Pulse Rate 74 80 Respiratory 16 18 Rate Blood Pressure 180/75 O2 Sat by Pulse 95 85 L Oximetry Medical Decision Making - Medical Decision Making 64-year-old female patient with multiple comorbidities including anemia of chronic disease, chronic kidney disease, CHF, type 2 diabetes, coronary artery disease presents ED chief complaint of exertional dyspnea. Patient was recently discharged on 07/25/19 for possible pneumonia as well as intractable nausea and vomiting. Patient reports that since returning home she has expands exertional dyspnea. Patient also reports that she just generally feels unwell. Patient reports that when she gets up and walks short distances she is short of breath. Patient denies any chest pain. Patient denies any pain in any other areas. Patient reports that she feels as if she felt in the past when she was anemic. Patient denies any hematochezia or tarry stools. Patient does take eliquis but is generally noncompliant due to insurance issues. Denies any other complaints. Patient vital signs displayed mild hypertension, hematuria pulse ox decreased 85. Pulse oxygenation in high 90s while sitting vertically in bed. Physical exam displayed crackles at base of lungs. Laboratory investigations revealed BNP of 1970. Troponin negative. EKG is nonischemic. Chest x-ray cyst with mild CHF the same or slightly worse than last exam. Patient admitted for diur esis, echocardiogram and cardiology consultation. Physician metal forger's assistant for Dr. Lion Condon accepts this admission. Case discussed with Dr. Hamilton. - Lab Data Result diagrams: 07/30/19 18:21 07/30/19 18:21 Lab Results 07/30/19 07/30/19 07/30/19 Range/Units 18:00 18:21 18:21 WBC 9.1 (3.8-10.6) k/uL RBC 2.46 L (3.80-5.40) m/uL Hgb 7.7 L (11.4-16.0) gm/dL Hct 22.7 L (34.0-46.0) % MCV 92.2 (80.0-100.0) fL MCH 31.4 (25.0-35.0) pg MCHC 34.0 (31.0-37.0) g/dL RDW 15.0 (11.5-15.5) % Plt Count 303 (150-450) k/uL Neutrophils % 88 % Lymphocytes % 6 % Monocytes % 3 % Eosinophils % 2 % Basophils % 0 % Neutrophils # 8.0 H (1.3-7.7) k/uL Lymphocytes # 0.5 L (1.0-4.8) k/uL Monocytes # 0.3 (0-1.0) k/uL Eosinophils # 0.2 (0-0.7) k/uL Basophils # 0.0 (0-0.2) k/uL PT (9.0-12.0) sec INR (<1.2) APTT (22.0-30.0) sec Sodium 139 (137-145) mmol/L Potassium 4.8 (3.5-5.1) mmol/L Chloride 107 (98-107) mmol/L Carbon Dioxide 25 (22-30) mmol/L Anion Gap 7 mmol/L BUN 46 H (7-17) mg/dL Creatinine 2.09 H (0.52-1.04) mg/dL Est GFR (CKD-EPI)AfAm 28 (>60 ml/min/1.73 sqM) Est GFR (CKD-EPI)NonAf 25 (>60 ml/min/1.73 sqM) Glucose 209 H (74-99) mg/dL Plasma Lactic Acid Sushant 1.0 (0.7-2.0) mmol/L Calcium 8.6 (8.4-10.2) mg/dL Phosphorus (2.5-4.5) mg/dL Magnesium (1.6-2.3) mg/dL Total Bilirubin 0.3 (0.2-1.3) mg/dL AST 19 (14-36) U/L ALT 37 (9-52) U/L Alkaline Phosphatase 95 (38-126) U/L Troponin I (0.000-0.034) ng/mL NT-Pro-B Natriuret Pep pg/mL Total Protein 6.3 (6.3-8.2) g/dL Albumin 3.2 L (3.5-5.0) g/dL Urine Color Urine Appearance (Clear) Urine pH (5.0-8.0) Ur Specific [place] (1.001-1.035) Urine Protein (Negative) Urine Glucose (UA) (Negative) Urine Ketones (Negative) Urine Blood (Negative) Urine Nitrite (Negative) Urine Bilirubin (Negative) Urine Urobilinogen (<2.0) mg/dL Ur Leukocyte Esterase (Negative) Urine RBC (0-5) /hpf Urine WBC (0-5) /hpf Ur Squamous Epith Cells (0-4) /hpf Amorphous Sediment (None) /hpf Hyaline Casts (0-2) /lpf Urine Mucus (None) /hpf 07/30/19 07/30/19 07/30/19 Range/Units 18:21 18:21 18:21 WBC (3.8-10.6) k/uL RBC (3.80-5.40) m/uL Hgb (11.4-16.0) gm/dL Hct (34.0-46.0) % MCV (80.0-100.0) fL MCH (25.0-35.0) pg MCHC (31.0-37.0) g/dL RDW (11.5-15.5) % Plt Count (150-450) k/uL Neutrophils % % Lymphocytes % % Monocytes % % Eosinophils % % Basophils % % Neutrophils # (1.3-7.7) k/uL Lymphocytes # (1.0-4.8) k/uL Monocytes # (0-1.0) k/uL Eosinophils # (0-0.7) k/uL Basophils # (0-0.2) k/uL PT 10.1 (9.0-12.0) sec INR 0.9 (<1.2) APTT 23.3 (22.0-30.0) sec Sodium (137-145) mmol/L Potassium (3.5-5.1) mmol/L Chloride (98-107) mmol/L Carbon Dioxide (22-30) mmol/L Anion Gap mmol/L BUN (7-17) mg/dL Creatinine (0.52-1.04) mg/dL Est GFR (CKD-EPI)AfAm (>60 ml/min/1.73 sqM) Est GFR (CKD-EPI)NonAf (>60 ml/min/1.73 sqM) Glucose (74-99) mg/dL Plasma Lactic Acid Sushant (0.7-2.0) mmol/L Calcium (8.4-10.2) mg/dL Phosphorus 3.4 (2.5-4.5) mg/dL Magnesium 1.9 (1.6-2.3) mg/dL Total Bilirubin (0.2-1.3) mg/dL AST (14-36) U/L ALT (9-52) U/L Alkaline Phosphatase (38-126) U/L Troponin I 0.015 (0.000-0.034) ng/mL NT-Pro-B Natriuret Pep pg/mL Total Protein (6.3-8.2) g/dL Albumin (3.5-5.0) g/dL Urine Color Urine Appearance (Clear) Urine pH (5.0-8.0) Ur Specific [place] (1.001-1.035) Urine Protein (Negative) Urine Glucose (UA) (Negative) Urine Ketones (Negative) Urine Blood (Negative) Urine Nitrite (Negative) Urine Bilirubin (Negative) Urine Urobilinogen (<2.0) mg/dL Ur Leukocyte Esterase (Negative) Urine RBC (0-5) /hpf Urine WBC (0-5) /hpf Ur Squamous Epith Cells (0-4) /hpf Amorphous Sediment (None) /hpf Hyaline Casts (0-2) /lpf Urine Mucus (None) /hpf 11/13/19 11/13/19 Range/Units 18:50 20:00 WBC (3.8-10.6) k/uL RBC (3.80-5.40) m/uL Hgb (11.4-16.0) gm/dL Hct (34.0-46.0) % MCV (80.0-100.0) fL MCH (25.0-35.0) pg MCHC (31.0-37.0) g/dL RDW (11.5-15.5) % Plt Count (150-450) k/uL Neutrophils % % Lymphocytes % % Monocytes % % Eosinophils % % Basophils % % Neutrophils # (1.3-7.7) k/uL Lymphocytes # (1.0-4.8) k/uL Monocytes # (0-1.0) k/uL Eosinophils # (0-0.7) k/uL Basophils # (0-0.2) k/uL PT (9.0-12.0) sec INR (<1.2) APTT (22.0-30.0) sec Sodium (137-145) mmol/L Potassium (3.5-5.1) mmol/L Chloride (98-107) mmol/L Carbon Dioxide (22-30) mmol/L Anion Gap mmol/L BUN (7-17) mg/dL Creatinine (0.52-1.04) mg/dL Est GFR (CKD-EPI)AfAm (>60 ml/min/1.73 sqM) Est GFR (CKD-EPI)NonAf (>60 ml/min/1.73 sqM) Glucose (74-99) mg/dL Plasma Lactic Acid Sushant (0.7-2.0) mmol/L Calcium (8.4-10.2) mg/dL Phosphorus (2.5-4.5) mg/dL Magnesium (1.6-2.3) mg/dL Total Bilirubin (0.2-1.3) mg/dL AST (14-36) U/L ALT (9-52) U/L Alkaline Phosphatase (38-126) U/L Troponin I (0.000-0.034) ng/mL NT-Pro-B Natriuret Pep 1970 pg/mL Total Protein (6.3-8.2) g/dL Albumin (3.5-5.0) g/dL Urine Color Light Yellow Urine Appearance Clear (Clear) Urine pH 6.0 (5.0-8.0) Ur Specific [place] 1.009 (1.001-1.035) Urine Protein 2+ H (Negative) Urine Glucose (UA) 3+ H (Negative) Urine Ketones Negative (Negative) Urine Blood Negative (Negative) Urine Nitrite Negative (Negative) Urine Bilirubin Negative (Negative) Urine Urobilinogen <2.0 (<2.0) mg/dL Ur Leukocyte Esterase Negative (Negative) Urine RBC 2 (0-5) /hpf Urine WBC 4 (0-5) /hpf Ur Squamous Epith Cells 5 H (0-4) /hpf Amorphous Sediment Rare H (None) /hpf Hyaline Casts 3 H (0-2) /lpf Urine Mucus Rare H (None) /hpf - EKG Data -: EKG Interpreted by Me (and Dr. Hamilton) EKG Comments: Ventricular rate 77, DE interval 182, QRS 98, QT/QTc 44/47. Normal sinus rhythm, axis, T-wave abnormality, consider inferior ischemia, abnormal EKG, no concern for acute ischemia at this time. Disposition Clinical Impression: CHF exacerbation Disposition: ADMITTED IP TO THIS [facility] Condition: Serious Referrals: Gale Amin MD [Primary Care Provider] - 1-2 days
[2019-07-30 18:36] LABS: Basophils % (A) 0 %; Eosinophils # (A) 0.2 k/uL (0-0.7); Eosinophils % (A) 2 %; HCT 22.7 % (34.0-46.0); HGB 7.7 gm/dL (11.4-16.0); Lymphocytes # (A) 0.5 k/uL (1.0-4.8); Lymphocytes % (A) 6 %; MCH 31.4 pg (25.0-35.0); MCV 92.2 fL (80.0-100.0); Mean Platelet Volume 6.8; Monocytes # (A) 0.3 k/uL (0-1.0); Monocytes % (A) 3 %; Neutrophils % (A) 88 %; Platelet Count 303 k/uL (150-450); RBC 2.46 m/uL (3.80-5.40); WBC 9.1 k/uL (3.8-10.6)
[2019-07-30 18:44] LABS: Albumin 3.2 g/dL (3.5-5.0); Calcium 8.6 mg/dL (8.4-10.2); Potassium 4.8 mmol/L (3.5-5.1); Total Bilirubin 0.3 mg/dL (0.2-1.3); Total Protein 6.3 g/dL (6.3-8.2)
--- NOTE | 2019-07-30 18:55 | XR ---
EXAMINATION TYPE: XR chest 2V DATE OF EXAM: 07/30/2019 COMPARISON: 07/23/2019 HISTORY: Short of breath TECHNIQUE: Frontal and lateral views of the chest are obtained. FINDINGS: Heart is enlarged. There is mild pulmonary congestion. There is slight blunting of the cos tophrenic angles. Bony thorax is intact. IMPRESSION: Mild congestive heart failure is the same or slightly worse than last exam.
[2019-07-30 18:59] LABS: INR 0.9 (<1.2); Partial Thromboplastin Time 23.3 sec (22.0-30.0); Prothrombin Time 10.1 sec (9.0-12.0)
[2019-07-30 19:12] LABS: Magnesium 1.9 mg/dL (1.6-2.3); Phosphorus 3.4 mg/dL (2.5-4.5)
[2019-07-30 20:45] LABS: Amorphous Sediment,Urine Rare /hpf; Appearance,Urine Clear (Clear); Bilirubin,Urine Negative (Negative); Blood,Urine Negative (Negative); Color,Urine Light Yellow; Glucose,Urine (UA) 3+ (Negative); Hyaline Casts,Urine 3 /lpf (0-2); Ketones,Urine Negative (Negative); Leukocyte Esterase,Urine Negative (Negative); Mucus,Urine Rare /hpf; Nitrite,Urine Negative (Negative); Protein,Urine 2+ (Negative); RBC,Urine 2 /hpf (0-5); Specific Gravity,Urine 1.009 (1.001-1.035); Squamous Epithelial Cell,Urine 5 /hpf (0-4); Urobilinogen,Urine <2.0 mg/dL (<2.0); WBC,Urine 4 /hpf (0-5)
[2019-07-30] MEDS ORDERED: FUROSEMIDE 10 MG/ML 2 ML VIAL IV STA (21:10)
[2019-07-30 22:58] LABS: Glucose,Whole Blood 160 mg/dL (75-99)
[2019-07-30 23:02] VITALS: BMI 46.6
[2019-07-30] MEDS ORDERED: IPRATROPIUM-ALBUTEROL 3 ML NEB INHALATION PRN (23:15)
[2019-07-30] MEDS ORDERED: METOPROLOL TARTRATE 25 MG TAB PO SCH (23:32)
[2019-07-30] MEDS ORDERED: hydrALAZINE HCL 25 MG TAB PO SCH (23:33)
[2019-07-30] MEDS: ALPRAZolam 0.25 MG TAB PO SCH (23:39)
[2019-07-30] MEDS: APIXABAN 2.5 MG TABLET PO SCH (23:40)
[2019-07-30] MEDS: SODIUM CHLORIDE 0.9% 1,000 ML IV SCH (23:40)
[2019-07-30] MEDS: DILTIAZEM ORAL 60 MG TAB PO SCH (23:40)
[2019-07-31 06:26] LABS: Glucose,Whole Blood 199 mg/dL (75-99)
[2019-07-31 06:39] LABS: Basophils % (A) 0 %; Eosinophils # (A) 0.2 k/uL (0-0.7); Eosinophils % (A) 3 %; HCT 21.7 % (34.0-46.0); Lymphocytes # (A) 0.7 k/uL (1.0-4.8); Lymphocytes % (A) 10 %; MCH 30.3 pg (25.0-35.0); MCHC 32.4 g/dL (31.0-37.0); MCV 93.6 fL (80.0-100.0); Mean Platelet Volume 6.6; Monocytes # (A) 0.2 k/uL (0-1.0); Monocytes % (A) 3 %; Neutrophils # (A) 5.4 k/uL (1.3-7.7); Neutrophils % (A) 82 %; Platelet Count 270 k/uL (150-450); RBC 2.32 m/uL (3.80-5.40); RDW 15.1 % (11.5-15.5); WBC 6.6 k/uL (3.8-10.6)
[2019-07-31] MEDS: hydrALAZINE HCL 25 MG TAB PO SCH ×4 (07:11→21:09)
[2019-07-31] MEDS ORDERED: hydrALAZINE HCL 25 MG TAB PO SCH (07:30)
[2019-07-31] MEDS ORDERED: FUROSEMIDE 10 MG/ML 4 ML VIAL IV SCH (09:00)
[2019-07-31] MEDS ORDERED: METOPROLOL TARTRATE 25 MG TAB PO SCH (09:00)
[2019-07-31] MEDS: ALLOPURINOL 100 MG TAB PO SCH ×3 (09:21→21:09)
[2019-07-31] MEDS: ASPIRIN 81 MG PO SCH (09:22)
[2019-07-31] MEDS: APIXABAN 2.5 MG TABLET PO SCH ×2 (09:22→21:09)
[2019-07-31] MEDS: DILTIAZEM ORAL 60 MG TAB PO SCH ×2 (09:22→21:08)
[2019-07-31] MEDS: LORATADINE 10 MG TAB PO SCH (09:22)
[2019-07-31] MEDS: METOPROLOL TARTRATE 25 MG TAB PO SCH ×2 (09:22→21:08)
[2019-07-31] MEDS: ISOSORBIDE MONONITRATE ER 60 MG TAB.ER.24H PO SCH (09:22)
[2019-07-31] MEDS: FERROUS SULFATE 325 MG TAB PO SCH (09:22)
[2019-07-31] MEDS: FAMOTIDINE 20 MG TAB PO SCH (09:23)
[2019-07-31] MEDS: INSULIN DETEMIR (LEVEMIR) 100 UNIT/ML SYR SQ SCH ×2 (09:23→21:09)
[2019-07-31] MEDS: ALPRAZolam 0.25 MG TAB PO SCH ×2 (09:34→21:08)
[2019-07-31 11:26] LABS: Glucose,Whole Blood 233 mg/dL (75-99)
[2019-07-31] MEDS: IPRATROPIUM-ALBUTEROL 3 ML NEB INHALATION SCH ×3 (11:40→20:19)
--- NOTE | 2019-07-31 12:12 | P.CRDCN ---
History of Present Illness Consult date: 07/31/19 Requesting physician: Aylin Seymour Consult reason: congestive heart failure Chief complaint: Shortness of breath History of present illness: This is a 64-year-old female who follows regularly with Dr. Núñez in the office. She has a known history of hypertension, diabetes, chronic kidney disease, coronary artery disease with prior PCI, obesity, sleep apnea, hyperlipidemia, chronic kidney disease was had a recent admission to the hospital with symptoms of persistent vomiting. Patient was discharged home and shortly after arriving home patient noticed herself to be more short of breath than usual just walking a short distance in the house. For this reason she came back to the hospital for further evaluation and treatment. Her chest x-ray performed on admission showed mild congestive heart failure, slightly worsened prior exam. EKG showed normal sinus rhythm with T wave inversion noted in the inferior leads. Blood pressure 176/78, 180/78, heart rate in the 60s, 94% on 2 L of oxygen. White blood cell count 6.6, hemoglobin 7.0, platelet count 278, sodium 139, potassium 4.8, BUN 46, creatinine 2.0. Initial troponin on presentation here 0.015, 0.018. ProBNP 1970. At the time of my examination this morning, patient is sitting up in bed, overall comfortable, she states that she cannot lay flat without having difficulty in breathing, and does state that just walking to the bathroom she does experience some shortness of breath. Past Medical History Past Medical History: Blood Disorder, Coronary Artery Disease (CAD), Heart Failure, Diabetes Mellitus, Hyperlipidemia, Hypertension, Myocardial Infarction (DE), Renal Disease Additional Past Medical History / Comment(s): edema, seasonal allergies, D iabetic ulcer-SEES DR ZELAYA FOR WOUND CARE, anemia, neuropathy, CKD Last Myocardial Infarction Date:: 01/10/15 History of Any Multi-Drug Resistant Organisms: None Reported Past Surgical History: Heart Catheterization With Stent Additional Past Surgical History / Comment(s): PT HAD STENT TO DISTAL RCA IN DECEMBER 2014, carpal tunnel bilateral hands, Past Anesthesia/Blood Transfusion Reactions: Family History of Problems w/ Anesthesia, Motion Sickness Additional Past Anesthesia/Blood Transfusion Reaction / Comment(s): states mother had difficulty coming out of anesthesia Date of Last Stent Placement:: 12/30 Past Psychological History: Anxiety Additional Psychological History / Comment(s): Pt states she lives in her home with her adult iris and nephew. She is independent. She uses no assistive device. She drives. Smoking Status: Never smoker Past Alcohol Use History: None Reported Past Drug Use History: None Reported - Past Family History Brother(s) Family Medical History: Cancer Sister(s) Family Medical History: Diabetes Mellitus, Hypertension, Myocardial Infarction (DE), Vascular Disorder Additional Family Medical History / Comment(s): post procedure of five stents Mother Family Medical History: CVA/TIA, Diabetes Mellitus, Myocardial Infarction ([place]) Additional Family Medical History / Comment(s): TIA's, PVD. Mother at age 65yrs. Father Family Medical History: Dementia, Diabetes Mellitus, Hypertension Additional Family Medical History / Comment(s): Father at age 72 yrs. Medications and Allergies Home Medications Medication Instructions Recorded Confirmed Type Loratadine [Claritin] 10 mg PO DAILY 01/05/15 07/30/19 History Aspirin 81 mg PO DAILY 04/16/15 07/30/19 History Insulin Glargine [Lantus] 45 unit SQ BID 01/22/17 07/30/19 History hydrALAZINE HCL [Apresoline] 75 mg PO TID-W/MEALS 08/15/17 07/30/19 History Ferrous Sulfate [Iron (65 MG 325 mg PO DAILY 04/15/18 07/30/19 History Elemental)] Insulin Lispro [Admelog] 15 units SQ AC-TID 10/18/18 07/30/19 History Ergocalciferol [Vitamin D2 50,000 unit PO SA 11/28/18 07/30/19 History (DRISDOL)] Insulin Lispro [Admelog] See Protocol SQ AC-TID 11/28/18 07/30/19 History Isosorbide Mononitrate ER [Imdur] 60 mg PO DAILY 12/09/18 07/30/19 History Apixaban [Eliquis] 2.5 mg PO BID #60 tablet 12/23/18 07/30/19 Rx Allopurinol [Zyloprim] 200 mg PO BID 07/22/19 07/30/19 History Atorvastatin [Lipitor] 80 mg PO HS 07/22/19 07/30/19 History Calcitriol 0.5 mcg PO FR 07/22/19 07/30/19 History Diltiazem Oral [Cardizem*] 60 mg PO BID 07/22/19 07/30/19 History Metoprolol Tartrate [Lopressor] 75 mg PO BID 07/22/19 07/30/19 History Torsemide [Demadex] 40 mg PO BID 07/22/19 07/30/19 History Famotidine [Pepcid] 20 mg PO DAILY 30 Days #30 tab 07/25/19 07/30/19 Rx Ipratropium-Albuterol Nebulize 3 ml INHALATION RT-TID 30 Days #90 07/25/19 07/30/19 Rx [Duoneb 0.5 mg-3 mg/3 ml Soln] ampul.neb Ipratropium-Albuterol Nebulize 3 ml INHALATION RT-TID PRN 30 Days 07/25/19 07/30/19 Rx [Duoneb 0.5 mg-3 mg/3 ml Soln] #90 ampul.neb Allergies Allergy/AdvReac Type Severity Reaction Status Date / Time ciprofloxacin [From Cipro] Allergy Swelling Verified 07/30/19 21:59 ciprofloxacin HCl Allergy Swelling Verified 07/30/19 21:59 [From Cipro] codeine Allergy Unknown Verified 07/30/19 21:59 latex Allergy Itching Verified 07/30/19 21:59 adhesive tape AdvReac Itching Verified 07/30/19 21:59 cephalexin monohydrate AdvReac Rash/Hives Verified 07/30/19 21:59 [From Keflex] sulfamethoxazole AdvReac Itching Verified 07/30/19 21:59 [From Bactrim] trimethoprim [From Bactrim] AdvReac Itching Verified 07/30/19 21:59 Physical Exam Vitals: Vital Signs Temp Pulse Pulse Resp BP BP Pulse Ox 07/31/19 11:57 66 07/31/19 11:45 64 07/31/19 08:30 98.5 F 80 19 181/77 94 L 07/31/19 06:59 176/79 07/31/19 04:00 98.0 F 86 18 180/82 95 07/31/19 01:12 81 18 07/31/19 00:00 98.0 F 77 18 223/91 96 07/30/19 21:49 73 18 168/61 96 07/30/19 20:28 85 L 07/30/19 19:23 80 18 180/75 95 07/30/19 18:36 74 16 07/30/19 18:30 74 16 07/30/19 18:00 97 07/30/19 17:52 97.9 F 86 18 180/67 94 L Intake and Output 07/30/19 07/31/19 07/31/19 22:59 06:59 14:59 Output Total 700 Balance -700 Output: Urine 700 Other: Weight 122.47 kg 135 kg PHYSICAL EXAMINATION: GENERAL:64-year-old female in no acute distress at the time of my examination HEENT: Head is atraumatic, normocephalic. Pupils equal, round. Sclera anicteric. Conjunctiva are clear. Mucous membranes of the mouth are moist. Neck is supple. There is elevated jugular venous pressure.no carotid bruit is heard. HEART EXAMINATION: heart S1-S2 a systolic murmur is heard CHEST EXAMINATION:Lungs reveal diminished air entry to bilateral bases with fine rales noted to the bases bilaterally. ABDOMEN: Soft, obese, nontender. Bowel sounds are heard. No organomegaly noted. EXTREMITIES: 2+ peripheral pulses with 1 + evidence of peripheral edema and no calf tenderness noted. NEUROLOGIC patient is awake, alert and oriented 3. Results 07/31/19 06:05 07/30/19 18:21 Cardiac Enzymes 07/30/19 07/30/19 07/31/19 Range/Units 18:21 18:21 01:51 AST 19 (14-36) U/L Troponin I 0.015 0.018 (0.000-0.034) ng/mL Coagulation 07/30/19 Range/Units 18:21 PT 10.1 (9.0-12.0) sec APTT 23.3 (22.0-30.0) sec CBC 07/30/19 07/31/19 Range/Units 18:21 06:05 WBC 9.1 6.6 (3.8-10.6) k/uL RBC 2.46 L 2.32 L (3.80-5.40) m/uL Hgb 7.7 L 7.0 L (11.4-16.0) gm/dL Hct 22.7 L 21.7 L (34.0-46.0) % Plt Count 303 270 (150-450) k/uL Comprehensive Metabolic Panel 07/30/19 Range/Units 18:21 Sodium 139 (137-145) mmol/L Potassium 4.8 (3.5-5.1) mmol/L Chloride 107 (98-107) mmol/L Carbon Dioxide 25 (22-30) mmol/L BUN 46 H (7-17) mg/dL Creatinine 2.09 H (0.52-1.04) mg/dL Glucose 209 H (74-99) mg/dL Calcium 8.6 (8.4-10.2) mg/dL AST 19 (14-36) U/L ALT 37 (9-52) U/L Alkaline Phosphatase 95 (38-126) U/L Total Protein 6.3 (6.3-8.2) g/dL Albumin 3.2 L (3.5-5.0) g/dL Current Medications Generic Name Dose Route Start Last Admin Trade Name Freq PRN Reason Stop Dose Admin Albuterol/Ipratropium 3 ml 07/30/19 23:15 Duoneb 0.5 Mg-3 Mg/3 Ml Soln INHALATION RT-TID PRN Shortness Of Breath Or Wheezing Albuterol/Ipratropium 3 ml 07/31/19 08:00 07/31/19 11:45 Duoneb 0.5 Mg-3 Mg/3 Ml Soln INHALATION 3 ml RT-TID ELISABETH Administration Allopurinol 200 mg 07/31/19 09:00 07/31/19 09:34 Zyloprim PO Not Given BID ELISABETH Alprazolam 0.25 mg 07/30/19 23:30 07/31/19 09:34 Xanax PO Not Given BID ELISABETH Apixaban 2.5 mg 07/30/19 23:15 07/31/19 09:22 Eliquis PO 2.5 mg BID ELISABETH Administration Aspirin 81 mg 07/31/19 09:00 07/31/19 09:22 Aspirin PO 81 mg DAILY ELISABETH Administration Diltiazem HCl 60 mg 07/30/19 23:30 07/31/19 09:22 Cardizem Oral PO 60 mg BID ELISABETH Administration Ergocalciferol 50,000 unit 08/02/19 09:00 Vitamin D2 PO SA [facility] Famotidine 20 mg 07/31/19 09:00 07/31/19 09:23 Pepcid PO 20 mg DAILY ELISABETH Administration Ferrous Sulfate 325 mg 07/31/19 09:00 07/31/19 09:22 Feosol PO 325 mg DAILY ELISABETH Administration Furosemide 40 mg 07/31/19 21:00 Lasix IV BID [facility] Hydralazine HCl 75 mg 07/31/19 07:30 07/31/19 07:11 Apresoline PO 75 mg TID-W/MEALS ELISABETH Administration Sodium Chloride 1,000 mls @ 20 mls/hr 07/30/19 21:30 07/30/19 23:40 Saline 0.9% IV Not Given .Q24H ELISABETH Insulin Detemir 45 unit 07/31/19 09:00 07/31/19 09:23 Levemir SQ 45 unit BID [facility] Administration Isosorbide Mononitrate 60 mg 07/31/19 09:00 07/31/19 09:22 Imdur PO 60 mg DAILY [facility] Administration Loratadine 10 mg 07/31/19 09:00 07/31/19 09:22 Claritin PO 10 mg DAILY [facility] Administration Metoprolol Tartrate 75 mg 07/30/19 23:38 07/31/19 09:22 Lopressor PO 75 mg BID [facility] Administration Nystatin 500,000 unit 07/31/19 13:00 Mycostatin Oral Susp PO QID [facility] Pyridoxine HCl 100 mg 07/31/19 13:00 Vitamin B-6 PO QID [facility] Intake and Output 07/30/19 07/31/19 07/31/19 22:59 06:59 14:59 Output Total 700 Balance -700 Output: Urine 700 Other: Weight 122.47 kg 135 kg 07/31/19 06:05 07/30/19 18:21 EKG Interpretations (text) EKG shows a normal sinus rhythm with no acute changes. Assessment and Plan Plan: Assessment and plan #1 diastolic congestive heart failure acute on chronic. Most recent echo performed in November of this year revealed an ejection fraction of 55-60%. #2 recent hospitalization with symptoms of vomiting and diarrhea, possible gastroenteritis #3 anemia, chronic #4 known history of coronary artery disease with prior RCA stenting #5 acute on chronic kidney disease #6 hypertension #7 hyperlipidemia #8 diabetes #9 sleep apnea #10 paroxysmal atrial fibrillation, on Eliquis for anticoagulation Plan We will repeat an echocardiogram with Doppler study. Discontinue IV Lasix for 24 hours, monitor the intake and output along with daily weights and daily lytes BUN and creatinine. Further recommendations to follow. DNP note has been reviewed, I agree with a documented findings and plan of care. Patient was seen and examined.
[2019-07-31] MEDS: NYSTATIN 100,000 UNIT/ML SUSP 500,000 UNIT/5 ML CUP PO SCH ×3 (12:17→22:03)
--- NOTE | 2019-07-31 12:17 | P.HPIM ---
History of Present Illness 61-year-old pleasant female came in with complains of shortness of breath and orthopnea, proximal nocturnal dyspnea is the history is not very clear patient does have sleep apnea uses CPAP machine does have coronary artery disease [place] is found to have elevated BNP does have elevated JVD and pulmonary edema on the chest x-ray and the patient was taking torsemide which was switched to IV Lasix patient is urinating well because of which patient will keep the same dose of Lasix at this time patient and if you're chills cough. Patient's of white hemoglobin is 7.0 her ferritin level was 600 during her last hospitalization patient does have chronic kidney disease stage IV may be contributing to her chronic anemia no signs or symptoms of acute GI bleed. Patient denied any chest pain EKG please refer to cardiology documentation for further details of that.patient shortness of breath is progressively has been going on for about 4- 5 days patient was recently hospitalized about a week ago for pneumonia.patient had normal ejection fraction on the echo cardiac exam that was done in November 2018 repeat echocardiogram is being obtained. Review of Systems REVIEW OF SYSTEMS: CONSTITUTIONAL: No fever, no malaise, no fatigue. HEENT: No recent visual problems or hearing problems. Denied any sore throat. CARDIOVASCULAR: No chest pain, PND, no palpitations, no syncope. PULMONARY: , no hemoptysis. GASTROINTESTINAL: No diarrhea, no nausea, no vomiting, no abdominal pain. NEUROLOGICAL: No headaches, no weakness, no numbness. HEMATOLOGICAL: Denies any bleeding or petechiae. GENITOURINARY: Denies any burning micturition, frequency, or urgency. MUSCULOSKELETAL/RHEUMATOLOGICAL: Denies any joint pain, swelling, or any muscle pain. ENDOCRINE: Denies any polyuria or polydipsia. The rest of the 14-point review of systems is negative. Past Medical History Past Medical History: Blood Disorder, Coronary Artery Disease (CAD), Heart Failure, Diabetes Mellitus, Hyperlipidemia, Hypertension, Myocardial Infarction ([place]), Renal Disease Additional Past Medical History / Comment(s): edema, seasonal allergies, Diabetic ulcer-SEES DR ZELAYA FOR WOUND CARE, anemia, neuropathy, CKD Last Myocardial Infarction Date:: 01/10/15 History of Any Multi-Drug Resistant Organisms: None Reported Past Surgical History: Heart Catheterization With Stent Additional Past Surgical History / Comment(s): PT HAD STENT TO DISTAL RCA IN DECEMBER 2014, carpal tunnel bilateral hands, Past Anesthesia/Blood Transfusion Reactions: Family History of Problems w/ Anesthesia, Motion Sickness Additional Past Anesthesia/Blood Transfusion Reaction / Comment(s): states mother had difficulty coming out of anesthesia Date of Last Stent Placement:: 12/30 Past Psychological History: Anxiety Additional Psychological History / Comment(s): Pt states she lives in her home with her adult neice and nephew. She is independent. She uses no assistive device. She drives. Smoking Status: Never smoker Past Alcohol Use History: None Reported Past Drug Use History: None Reported - Past Family History Brother(s) Family Medical History: Cancer Sister(s) Family Medical History: Diabetes Mellitus, Hypertension, Myocardial Infarction (MD), Vascular Disorder Additional Family Medical History / Comment(s): post procedure of five stents Mother Family Medical History: CVA/TIA, Diabetes Mellitus, Myocardial Infarction (MD) Additional Family Medical History / Comment(s): TIA's, PVD. Mother at age 65yrs. Father Family Medical History: Dementia, Diabetes Mellitus, Hypertension Additional Family Medical History / Comment(s): Father at age 72 yrs. Medications and Allergies Home Medications Medication Instructions Recorded Confirmed Type Loratadine [Claritin] 10 mg PO DAILY 01/05/15 07/30/19 History Aspirin 81 mg PO DAILY 04/16/15 07/30/19 History Insulin Glargine [Lantus] 45 unit SQ BID 01/22/17 07/30/19 History hydrALAZINE HCL [Apresoline] 75 mg PO TID-W/MEALS 08/15/17 07/30/19 History Ferrous Sulfate [Iron (65 MG 325 mg PO DAILY 04/15/18 07/30/19 History Elemental)] Insulin Lispro [Admelog] 15 units SQ AC-TID 10/18/18 07/30/19 History Ergocalciferol [Vitamin D2 50,000 unit PO SA 11/28/18 07/30/19 History (DRISDOL)] Insulin Lispro [Admelog] See Protocol SQ AC-TID 11/28/18 07/30/19 History Isosorbide Mononitrate ER [Imdur] 60 mg PO DAILY 12/09/18 07/30/19 History Apixaban [Eliquis] 2.5 mg PO BID #60 tablet 12/23/18 07/30/19 Rx Allopurinol [Zyloprim] 200 mg PO BID 07/22/19 07/30/19 History Atorvastatin [Lipitor] 80 mg PO HS 07/22/19 07/30/19 History Calcitriol 0.5 mcg PO FR 07/22/19 07/30/19 History Diltiazem Oral [Cardizem*] 60 mg PO BID 07/22/19 07/30/19 History Metoprolol Tartrate [Lopressor] 75 mg PO BID 07/22/19 07/30/19 History Torsemide [Demadex] 40 mg PO BID 07/22/19 07/30/19 History Famotidine [Pepcid] 20 mg PO DAILY 30 Days #30 tab 07/25/19 07/30/19 Rx Ipratropium-Albuterol Nebulize 3 ml INHALATION RT-TID 30 Days #90 07/25/19 07/30/19 Rx [Duoneb 0.5 mg-3 mg/3 ml Soln] ampul.neb Ipratropium-Albuterol Nebulize 3 ml INHALATION RT-TID PRN 30 Days 07/25/19 07/30/19 Rx [Duoneb 0.5 mg-3 mg/3 ml Soln] #90 ampul.neb Allergies Allergy/AdvReac Type Severity Reaction Status Date / Time ciprofloxacin [From Cipro] Allergy Swelling Verified 07/30/19 21:59 ciprofloxacin HCl Allergy Swelling Verified 07/30/19 21:59 [From Cipro] codeine Allergy Unknown Verified 07/30/19 21:59 latex Allergy Itching Verified 07/30/19 21:59 adhesive tape AdvReac Itching Verified 07/30/19 21:59 cephalexin monohydrate AdvReac Rash/Hives Verified 07/30/19 21:59 [From Keflex] sulfamethoxazole AdvReac Itching Verified 07/30/19 21:59 [From Bactrim] trimethoprim [From Bactrim] AdvReac Itching Verified 07/30/19 21:59 Physical Exam Vitals: Vital Signs Temp Pulse Pulse Resp BP BP Pulse Ox 07/31/19 11:57 66 07/31/19 11:45 64 07/31/19 08:30 98.5 F 80 19 181/77 94 L 07/31/19 06:59 176/79 07/31/19 04:00 98.0 F 86 18 180/82 95 07/31/19 01:12 81 18 07/31/19 00:00 98.0 F 77 18 223/91 96 07/30/19 21:49 73 18 168/61 96 07/30/19 20:28 85 L 07/30/19 19:23 80 18 180/75 95 07/30/19 18:36 74 16 07/30/19 18:30 74 16 07/30/19 18:00 97 07/30/19 17:52 97.9 F 86 18 180/67 94 L Intake and Output 07/30/19 07/31/19 07/31/19 22:59 06:59 14:59 Output Total 700 Balance -700 Output: Urine 700 Other: Weight 122.47 kg 135 kg PHYSICAL EXAMINATION: GENERAL: The patient is alert and oriented x3, not in any acute distress. Well developed, well nourished. HEENT: Pupils are round and equally reacting to light. EOMI. No scleral icterus. No conjunctival pallor. Normocephalic, atraumatic. No pharyngeal erythema. No thyromegaly. CARDIOVASCULAR: S1 and S2 present. No murmurs, rubs, or gallops. weighted JVD PULMONARY: Chest is clear to auscultation, no wheezing or crackles. ABDOMEN: Soft, nontender, nondistended, normoactive bowel sounds. No palpable organomegaly. MUSCULOSKELETAL: No joint swelling or deformity. EXTREMITIES: No cyanosis, clubbing,does havebilateral pitting pedal edema NEUROLOGICAL: Gross neurological examination did not reveal any focal deficits. SKIN: No rashes. Results CBC & Chem 7: 07/31/19 06:05 07/30/19 18:21 Labs: Abnormal Lab Results - Last 24 Hours (Table) 07/30/19 07/30/19 07/30/19 Range/Units 18:21 18:21 20:00 RBC 2.46 L (3.80-5.40) m/uL Hgb 7.7 L (11.4-16.0) gm/dL Hct 22.7 L (34.0-46.0) % Neutrophils # 8.0 H (1.3-7.7) k/uL Lymphocytes # 0.5 L (1.0-4.8) k/uL BUN 46 H (7-17) mg/dL Creatinine 2.09 H (0.52-1.04) mg/dL Glucose 209 H (74-99) mg/dL POC Glucose (mg/dL) (75-99) mg/dL Albumin 3.2 L (3.5-5.0) g/dL Urine Protein 2+ H (Negative) Urine Glucose (UA) 3+ H (Negative) Ur Squamous Epith Cells 5 H (0-4) /hpf Amorphous Sediment Rare H (None) /hpf Hyaline Casts 3 H (0-2) /lpf Urine Mucus Rare H (None) /hpf 07/30/19 07/31/19 07/31/19 Range/Units 22:55 06:05 06:24 RBC 2.32 L (3.80-5.40) m/uL Hgb 7.0 L (11.4-16.0) gm/dL Hct 21.7 L (34.0-46.0) % Neutrophils # (1.3-7.7) k/uL Lymphocytes # 0.7 L (1.0-4.8) k/uL BUN (7-17) mg/dL Creatinine (0.52-1.04) mg/dL Glucose (74-99) mg/dL POC Glucose (mg/dL) 160 H 199 H (75-99) mg/dL Albumin (3.5-5.0) g/dL Urine Protein (Negative) Urine Glucose (UA) (Negative) Ur Squamous Epith Cells (0-4) /hpf Amorphous Sediment (None) /hpf Hyaline Casts (0-2) /lpf Urine Mucus (None) /hpf 07/31/19 Range/Units 11:24 RBC (3.80-5.40) m/uL Hgb (11.4-16.0) gm/dL Hct (34.0-46.0) % Neutrophils # (1.3-7.7) k/uL Lymphocytes # (1.0-4.8) k/uL BUN (7-17) mg/dL Creatinine (0.52-1.04) mg/dL Glucose (74-99) mg/dL POC Glucose (mg/dL) 233 H (75-99) mg/dL Albumin (3.5-5.0) g/dL Urine Protein (Negative) Urine Glucose (UA) (Negative) Ur Squamous Epith Cells (0-4) /hpf Amorphous Sediment (None) /hpf Hyaline Casts (0-2) /lpf Urine Mucus (None) /hpf Thrombosis Risk Factor Assmnt - Choose All That Apply Each Factor Represents 1 point: Obesity (BMI >25), Swollen legs (current) Each Risk Factor Represents 2 Points: Age 61-74 years Other congenital or acquired thrombophilia - If yes, enter type in comment: No Thrombosis Risk Factor Assessment Total Risk Factor Score: 4 Thrombosis Risk Factor Assessment Level: Moderate Risk Assessment and Plan Plan: restart failure with acute exacerbation possibly of diastolic dysfunction repeat echocardiogram is being up and patient had a normal ejection fraction the past -Coronary artery disease with previous stenting to RCA -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 fib on Eliquis" presently sinus rhythm and rate controlled -Sleep apnea and uses CPAP machine at home. Patient has on and off nosebleeds secondary to dry mucous membranes from a BiPAP and being on anticoagulation -Possible oral thrush for which we'll use nystatin swish and swallow
[2019-07-31] MEDS: PYRIDOXINE 50 MG TAB PO SCH ×3 (12:18→22:03)
--- NOTE | 2019-07-31 14:00 | ECHOF ---
Referral Reason:Heart Failure MEASUREMENTS -------- HEIGHT: 170.2 cm WEIGHT: 164.2 kg BP: 176/79 IVSd: 1.4 cm (0.6 - 1.1) LVIDd: 4.8 cm (3.9 - 5.3) LVPWd: 1.6 cm (0.6 - 1.1) IVSs: 1.9 cm LVIDs: 3.4 cm LVPWs: 1.9 cm RVIDd: 4.4 cm (< 3.3) LAESV Index (A-L): 27.56 ml/m Ao Diam: 3.0 cm (2.0 - 3.7) LA Diam: 4.2 cm (2.7 - 3.8) AV Cusp: 1.9 cm (1.5 - 2.6) EPSS: 0.7 cm MV E Porfirio: 1.42 m/s MV DecT: 183 ms MV A Porfirio: 1.11 m/s MV E/A Ratio: 1.28 RAP: 5.00 mmHg RVSP: 43.27 mmHg MV EF SLOPE: 33.35 mm/s (70 - 150) MV EXCURSION: 14.92 mm (> 18.000) FINDINGS -------- Sinus rhythm. This was a technically difficult study with suboptimal apical views. Morbid Obesity The left ventricular size is normal. There is moderate concentric left ventricular hypertrophy. O verall left ventricular systolic function is normal with, an EF between 55 - 60 %. Normal Lap Grade I Diastolic Dysfunction. The right ventricle is moderately enlarged. Normal LA size by volume 22+/-6 ml/m2. The right atrium is mildly enlarged. 5.0mg of Lumason was utilized for enhancement of images Interatrial and interventricular septum intact. There is mild aortic valve sclerosis. There is no evidence of aortic regurgitation. There is no e vidence of aortic stenosis. Moderate mitral annular calcification present. [id number] mitral regurgitation is present. Mild tricuspid regurgitation present. There is mild pulmonary hypertension. The right ventricular systolic pressure, as measured by Doppler, is 43.27mmHg. Trace/mild (physiologic) pulmonic regurgitation. The aortic root size is normal. IVC Not well visulized. There is no pericardial effusion. CONCLUSIONS -------- 1. Sinus rhythm. 2. This was a technically difficult study with suboptimal apical views. 3. Morbid Obesity 4. The left ventricular size is normal. 5. There is moderate concentric left ventricular hypertrophy. 6. Overall left ventricular systolic function is normal with, an EF between 55 - 60 %. 7. Normal Lap Grade I Diastolic Dysfunction. 8. The right ventricle is moderately enlarged. 9. Normal LA size by volume 22+/-6 ml/m2. 10. The right atrium is mildly enlarged. 11. 5.0mg of Lumason was utilized for enhancement of images 12. Interatrial and interventricular septum intact. 13. There is mild aortic valve sclerosis. 14. There is no evidence of aortic regurgitation. 15. There is no evidence of aortic stenosis. 16. Moderate mitral annular calcification present. 17. [id number] mitral regurgitation is present. 18. Mild tricuspid regurgitation present. 19. There is mild pulmonary hypertension. 20. The right ventricular systolic pressure, as measured by Doppler, is 43.27mmHg. 21. Trace/mild (physiologic) pulmonic regurgitation. 22. The aortic root size is normal. 23. IVC Not well visulized. 24. There is no pericardial effusion. 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
[2019-07-31 16:44] LABS: Glucose,Whole Blood 273 mg/dL (75-99)
[2019-07-31] MEDS: INSULIN ASPART (NovoLOG) 100 UNIT/ML VIAL SQ SCH ×3 (17:45→22:03)
[2019-07-31 20:09] LABS: Glucose,Whole Blood 145 mg/dL (75-99)
[2019-07-31] MEDS: FUROSEMIDE 10 MG/ML 4 ML VIAL IV SCH (21:09)
[2019-07-31] MEDS: SODIUM CHLORIDE 0.9% 1,000 ML IV SCH (22:04)
[2019-08-01 06:15] LABS: Glucose,Whole Blood 136 mg/dL (75-99)
[2019-08-01 06:52] LABS: Calcium 8.6 mg/dL (8.4-10.2); Potassium 4.5 mmol/L (3.5-5.1)
[2019-08-01] MEDS: INSULIN ASPART (NovoLOG) 100 UNIT/ML VIAL SQ SCH ×7 (07:09→20:31)
[2019-08-01] MEDS: IPRATROPIUM-ALBUTEROL 3 ML NEB INHALATION SCH ×3 (07:43→19:15)
[2019-08-01] MEDS: FUROSEMIDE 10 MG/ML 4 ML VIAL IV SCH ×2 (08:59→20:31)
[2019-08-01] MEDS: NYSTATIN 100,000 UNIT/ML SUSP 500,000 UNIT/5 ML CUP PO SCH ×4 (08:59→20:31)
[2019-08-01] MEDS: METOPROLOL TARTRATE 25 MG TAB PO SCH ×2 (09:00→20:32)
[2019-08-01] MEDS: ALPRAZolam 0.25 MG TAB PO SCH ×2 (09:00→20:32)
[2019-08-01] MEDS: ASPIRIN 81 MG PO SCH (09:00)
[2019-08-01] MEDS: FERROUS SULFATE 325 MG TAB PO SCH (09:00)
[2019-08-01] MEDS: FAMOTIDINE 20 MG TAB PO SCH (09:00)
[2019-08-01] MEDS: ISOSORBIDE MONONITRATE ER 60 MG TAB.ER.24H PO SCH (09:00)
[2019-08-01] MEDS: APIXABAN 2.5 MG TABLET PO SCH ×2 (09:00→20:32)
[2019-08-01] MEDS: PYRIDOXINE 50 MG TAB PO SCH ×4 (09:00→20:31)
[2019-08-01] MEDS: DILTIAZEM ORAL 60 MG TAB PO SCH ×2 (09:00→20:32)
[2019-08-01] MEDS: LORATADINE 10 MG TAB PO SCH (09:00)
[2019-08-01] MEDS: ALLOPURINOL 100 MG TAB PO SCH (09:07)
[2019-08-01] MEDS: INSULIN DETEMIR (LEVEMIR) 100 UNIT/ML SYR SQ SCH ×2 (10:18→20:31)
--- NOTE | 2019-08-01 11:10 | P.PN ---
Subjective Progress Note Date: 08/01/19 Principal diagnosis: Congestive heart failure exacerbation secondary to diastolic dysfunction This is a very pleasant 64-year-old female patient with history of chronic diastolic congestive heart failure, history of coronary artery disease, hypertension, dyslipidemia, diabetes, obesity, was admitted to the hospital with acute exacerbation of congestive heart failure secondary to diastole dysfunction On follow-up with her today, 08/01/2019, she is feeling slightly better in terms of shortness of breath. On examination she does have quite significant bilateral lower extremities edema. She is on Lasix IV at 40 mg 3 times a day. The creatinine this morning is 2.43 which is her baseline. I would recommend continue the patient on IV Lasix for additional 24 hours and continue monitor the kidney function and electrolytes for possible discharge tomorrow morning. The echo showed normal LV function with evidence of unax-iz-gvuaqpey MR, mild TR, mild pulmonary hypertension Objective - Vital Signs Vital signs: Vital Signs Temp 98.1 F 08/01/19 08:00 Pulse 72 08/01/19 08:00 Resp 18 08/01/19 08:00 BP 168/74 08/01/19 08:00 Pulse Ox 95 08/01/19 08:00 Intake & Output 07/31/19 08/01/19 08/01/19 18:59 06:59 18:59 Intake Total 236 240 Output Total 900 5600 Balance -664 -5600 240 Weight 135 kg 135.1 kg Intake: Oral 236 240 Output: Urine 900 5600 - Constitutional General appearance: Present: no acute distress - Respiratory Respiratory: bilateral: diminished - Cardiovascular Rhythm: regular Heart sounds: normal: S1, S2 - Labs CBC & Chem 7: 07/31/19 06:05 08/01/19 06:15 Labs: Abnormal Lab Results - Last 24 Hours (Table) 07/31/19 07/31/19 07/31/19 Range/Units 11:24 16:42 20:08 BUN (7-17) mg/dL Creatinine (0.52-1.04) mg/dL Glucose (74-99) mg/dL POC Glucose (mg/dL) 233 H 273 H 145 H (75-99) mg/dL 08/01/19 08/01/19 Range/Units 06:14 06:15 BUN 49 H (7-17) mg/dL Creatinine 2.34 H (0.52-1.04) mg/dL Glucose 119 H (74-99) mg/dL POC Glucose (mg/dL) 136 H (75-99) mg/dL Assessment and Plan Assessment: Assessment #1 acute exacerbation of diastolic congestive heart failure #2 coronary artery disease #3 leno-[id number] mitral regurgitation #4 multiple comorbid conditions Plan Continue the current medical regimen including the current dose of Lasix Continue monitoring her kidney function and electrolytes Possible discharge in the next 24 hours
[2019-08-01 12:13] LABS: Glucose,Whole Blood 265 mg/dL (75-99)
[2019-08-01] MEDS: hydrALAZINE HCL 25 MG TAB PO SCH ×2 (12:14→17:17)
[2019-08-01 15:29] VITALS: RESP 18
[2019-08-01 16:52] LABS: Glucose,Whole Blood 198 mg/dL (75-99)
--- NOTE | 2019-08-01 17:33 | P.PN ---
Subjective Progress Note Date: 08/01/19 Principal diagnosis: Acute exacerbation CHF Acute on chronic kidney disease stage IV 61-year-old pleasant female came in with complains of shortness of breath and orthopnea, proximal nocturnal dyspnea is the history is not very clear patient does have sleep apnea uses CPAP machine does have coronary artery disease patient is found to have elevated BNP does have elevated JVD and pulmonary edema on the chest x-ray and the patient was taking torsemide which was switched to IV Lasix patient is urinating well because of which patient will keep the same dose of Lasix at this time patient 08/01/2019 Patient is feeling slightly better in terms of shortness of breath. On examination she does have quite significant bilateral lower extremities edema. She is on Lasix IV at 40 mg 3 times a day. The creatinine this morning is 2.43 which is her baseline. I would recommend continue the patient on IV Lasix for additional 24 hours and continue monitor the kidney function and electrolytes for possible discharge tomorrow morning. The echo showed normal LV function with evidence of yyzj-rb-jeaumhil MR, mild TR, mild pulmonary hypertension Objective - Vital Signs Vital signs: Vital Signs Temp 98.5 F 08/01/19 11:23 Pulse 79 08/01/19 11:23 Resp 16 08/01/19 11:23 BP 181/87 08/01/19 11:23 Pulse Ox 94 L 08/01/19 11:23 Intake & Output 07/31/19 08/01/19 08/01/19 18:59 06:59 18:59 Intake Total 236 240 Output Total 900 5600 Balance -664 -5600 240 Weight 135 kg 135.1 kg Intake: Oral 236 240 Output: Urine 900 5600 Other: # Voids 1 - Exam GENERAL: The patient is alert and oriented x3, not in any acute distress. Well developed, well nourished. HEENT: Pupils are round and equally reacting to light. EOMI. No scleral icterus. No conjunctival pallor. Normocephalic, atraumatic. No pharyngeal erythema. No thyromegaly. CARDIOVASCULAR: S1 and S2 present. No murmurs, rubs, or gallops. weighted JVD PULMONARY: Chest is clear to auscultation, no wheezing or crackles. ABDOMEN: Soft, nontender, nondistended, normoactive bowel sounds. No palpable organomegaly. MUSCULOSKELETAL: No joint swelling or deformity. EXTREMITIES: No cyanosis, clubbing,does havebilateral pitting pedal edema NEUROLOGICAL: Gross neurological examination did not reveal any focal deficits. SKIN: No rashes. - Labs CBC & Chem 7: 07/31/19 06:05 08/01/19 06:15 Labs: Abnormal Lab Results - Last 24 Hours (Table) 07/31/19 07/31/19 08/01/19 Range/Units 16:42 20:08 06:14 BUN (7-17) mg/dL Creatinine (0.52-1.04) mg/dL Glucose (74-99) mg/dL POC Glucose (mg/dL) 273 H 145 H 136 H (75-99) mg/dL 08/01/19 08/01/19 Range/Units 06:15 12:07 BUN 49 H (7-17) mg/dL Creatinine 2.34 H (0.52-1.04) mg/dL Glucose 119 H (74-99) mg/dL POC Glucose (mg/dL) 265 H (75-99) mg/dL Assessment and Plan Assessment: restart failure with acute exacerbation possibly of diastolic dysfunction repeat echocardiogram is being up and patient had a normal ejection fraction the past -Coronary artery disease with previous stenting to RCA -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 fib on Eliquis" presently sinus rhythm and rate controlled -Sleep apnea and uses CPAP machine at home. Patient has on and off nosebleeds secondary to dry mucous membranes from a BiPAP and being on anticoagulation -Possible oral thrush for which we'll use nystatin swish and swallow
[2019-08-01 20:02] LABS: Glucose,Whole Blood 222 mg/dL (75-99)
[2019-08-01] MEDS ORDERED: ALLOPURINOL 100 MG TAB PO SCH (21:00)
[2019-08-02] MEDS: SODIUM CHLORIDE 0.9% 1,000 ML IV SCH (00:19)
[2019-08-02 06:44] LABS: Glucose,Whole Blood 119 mg/dL (75-99)
[2019-08-02 07:00] LABS: Calcium 8.8 mg/dL (8.4-10.2); Potassium 4.6 mmol/L (3.5-5.1)
[2019-08-02] MEDS: INSULIN ASPART (NovoLOG) 100 UNIT/ML VIAL SQ SCH ×4 (07:05→12:23)
[2019-08-02] MEDS: hydrALAZINE HCL 25 MG TAB PO SCH (07:05)
[2019-08-02 07:57] VITALS: TEMP 98.6
[2019-08-02] MEDS: IPRATROPIUM-ALBUTEROL 3 ML NEB INHALATION SCH ×2 (07:59→13:17)
[2019-08-02] MEDS: LORATADINE 10 MG TAB PO SCH (08:59)
[2019-08-02] MEDS: NYSTATIN 100,000 UNIT/ML SUSP 500,000 UNIT/5 ML CUP PO SCH ×2 (08:59→12:23)
[2019-08-02] MEDS: FUROSEMIDE 10 MG/ML 4 ML VIAL IV SCH (08:59)
[2019-08-02] MEDS ORDERED: ERGOCALCIFEROL 50,000 UNIT CAP PO SCH (09:00)
[2019-08-02] MEDS: ISOSORBIDE MONONITRATE ER 60 MG TAB.ER.24H PO SCH (09:00)
[2019-08-02] MEDS: ALPRAZolam 0.25 MG TAB PO SCH (09:00)
[2019-08-02] MEDS: FAMOTIDINE 20 MG TAB PO SCH (09:00)
[2019-08-02] MEDS: METOPROLOL TARTRATE 25 MG TAB PO SCH (09:00)
[2019-08-02] MEDS: INSULIN DETEMIR (LEVEMIR) 100 UNIT/ML SYR SQ SCH (09:00)
[2019-08-02] MEDS: FERROUS SULFATE 325 MG TAB PO SCH (09:00)
[2019-08-02] MEDS: PYRIDOXINE 50 MG TAB PO SCH ×2 (09:00→12:23)
[2019-08-02] MEDS: DILTIAZEM ORAL 60 MG TAB PO SCH (09:00)
[2019-08-02] MEDS: ASPIRIN 81 MG PO SCH (09:00)
[2019-08-02] MEDS: APIXABAN 2.5 MG TABLET PO SCH (09:00)
--- NOTE | 2019-08-02 11:43 | P.PN ---
Subjective Progress Note Date: 08/02/19 This 64-year-old female is admitted to the hospital with evidence of chronic diastolic congestive heart failure. Patient has been IV diuretics in the form of Lasix 40 mg 3 times a day. She is diuresing well. He is feeling better and or edema. Seemed to be less. Lungs appeared to be clear. Heart is regular. The diuretics could be changed to by mouth diuretics. Increase activity. Possible discharge within next 24 hours Objective - Vital Signs Vital signs: Vital Signs Temp 98.6 F 08/02/19 07:54 Pulse 80 08/02/19 08:10 Resp 18 08/02/19 07:54 BP 178/92 08/02/19 07:54 Pulse Ox 97 08/02/19 07:59 Intake & Output 08/01/19 08/02/19 08/02/19 18:59 06:59 18:59 Intake Total 720 240 Output Total 1000 900 Balance -280 -900 240 Weight 135 kg Intake: Oral 720 240 Output: Urine 1000 900 Other: # Voids 1 3 - Exam GENERAL EXAM: Patient is alert and oriented and doesn't appear to be in any acute distress HEENT: Normocephalic. Normal reaction of pupils, equal size, normal range of extraocular motion. No erythema or exudates in the throat. NECK: No masses, no nuchal rigidity. CHEST: No chest wall deformity. LUNGS: Equal air entry with no crackles or wheeze. HEART: S1 and S2 normal with no audible mumurs or gallops. Regular rhythm, femorals equal on both sides.. ABDOMEN: No hepatosplenomegaly, normal bowel sounds, no guarding or rigidity. SKIN: No rashes CENTRAL NERVOUS SYSTEM: No focal deficits. EXTREMITIES: Resolving edema. - Labs CBC & Chem 7: 07/31/19 06:05 08/02/19 05:47 Labs: Abnormal Lab Results - Last 24 Hours (Table) 08/01/19 08/01/19 08/01/19 Range/Units 12:07 16:51 20:01 BUN (7-17) mg/dL Creatinine (0.52-1.04) mg/dL Glucose (74-99) mg/dL POC Glucose (mg/dL) 265 H 198 H 222 H (75-99) mg/dL 08/02/19 08/02/19 Range/Units 05:47 06:43 BUN 55 H (7-17) mg/dL Creatinine 2.42 H (0.52-1.04) mg/dL Glucose 105 H (74-99) mg/dL POC Glucose (mg/dL) 119 H (75-99) mg/dL Assessment and Plan (1) Afib Current Visit: No Status: Acute Code(s): I48.91 - UNSPECIFIED ATRIAL FIBRILLATION SNOMED Code(s): 20783247 (2) Anemia Current Visit: No Status: Acute Code(s): D64.9 - ANEMIA, UNSPECIFIED SNOMED Code(s): 252608769 (3) CHF exacerbation Current Visit: No Status: Acute Code(s): I50.9 - HEART FAILURE, UNSPECIFIED SNOMED Code(s): 084769411 (4) Diabetes Current Visit: No Status: Acute Code(s): E11.9 - TYPE 2 DIABETES MELLITUS WITHOUT COMPLICATIONS SNOMED Code(s): 10559114 Plan: Patient is clinically doing better. Her edema is down. Creatinine is about 2.4. The IV diuretics could be changed to by mouth Lasix 80 mg twice a day. Possible discharge within next 24 hours
[2019-08-02 12:04] LABS: Glucose,Whole Blood 186 mg/dL (75-99)
[2019-08-02] MEDS ORDERED: hydrALAZINE HCL 50 MG TAB PO SCH (12:30)
[2019-08-02 13:13] VITALS: BP 182/79
[2019-08-02 13:19] VITALS: PULSE 80
--- NOTE | 2019-08-02 13:38 | P.DS ---
Providers Date of admission: 07/30/19 20:41 Expected date of discharge: 08/02/19 Attending physician: Aylin Seymour Consults: 07/30/19 21:21 Consult Physician Stat Consulting Provider: Eh Mccarthy Consult Reason/Comments: CHF exacerbation Do you want consulting provider notified?: Yes, Notify in am Primary care physician: [facility] Course: 61-year-old pleasant female came in with complains of shortness of breath and orthopnea, proximal nocturnal dyspnea is the history is not very clear patient does have sleep apnea uses CPAP machine does have coronary artery disease patient is found to have elevated BNP does have elevated JVD and pulmonary edema on the chest x-ray and the patient was taking torsemide which was switched to IV Lasix patient is urinating well because of which patient will keep the same dose of Lasix at this time patient 08/01/2019 Patient is feeling slightly better in terms of shortness of breath. On ex amination she does have quite significant bilateral lower extremities edema. She is on Lasix IV at 40 mg 3 times a day. The creatinine this morning is 2.43 which is her baseline. I would recommend continue the patient on IV Lasix for additional 24 hours and continue monitor the kidney function and electrolytes for possible discharge tomorrow morning. The echo showed normal LV function with evidence of pssq-gu-qbrixwyz MR, mild TR, mild pulmonary hypertension 08/02/19 Patient has been IV diuretics in the form of Lasix 40 mg 3 times a day. She is diuresing well. She is feeling better and or edema. Seemed to be less. Lungs appeared to be clear. Heart is regular. The diuretics could be changed to by mouth diuretics. Increase activity. Patient is started on lasix 80 mg BID per Cards recommendation Patient Condition at Discharge: Serious Plan - Discharge Summary New Discharge Prescriptions: New Furosemide [Lasix] 80 mg PO BID@0900,1600 #60 tab Pyridoxine [Vitamin B-6] 100 mg PO QID #120 tab No Action Loratadine [Claritin] 10 mg PO DAILY Aspirin 81 mg PO DAILY Insulin Glargine [Lantus] 45 unit SQ BID hydrALAZINE HCL [Apresoline] 75 mg PO TID-W/MEALS Ferrous Sulfate [Iron (65 MG Elemental)] 325 mg PO DAILY Insulin Lispro [Admelog] 15 units SQ AC-TID Ergocalciferol [Vitamin D2 (DRISDOL)] 50,000 unit PO SA Insulin Lispro [Admelog] See Protocol SQ AC-TID Isosorbide Mononitrate ER [Imdur] 60 mg PO DAILY Apixaban [Eliquis] 2.5 mg PO BID #60 tablet Atorvastatin [Lipitor] 80 mg PO HS Calcitriol 0.5 mcg PO FR Diltiazem Oral [Cardizem*] 60 mg PO BID Metoprolol Tartrate [Lopressor] 75 mg PO BID Torsemide [Demadex] 40 mg PO BID Allopurinol [Zyloprim] 200 mg PO BID Ipratropium-Albuterol Nebulize [Duoneb 0.5 mg-3 mg/3 ml Soln] 3 ml INHALATION RT-TID 30 Days #90 ampul.neb Ipratropium-Albuterol Nebulize [Duoneb 0.5 mg-3 mg/3 ml Soln] 3 ml INHALATION RT-TID PRN 30 Days #90 ampul.neb PRN Reason: Shortness Of Breath Or Wheezing Famotidine [Pepcid] 20 mg PO DAILY 30 Days #30 tab Discharge Medication List Loratadine [Claritin] 10 mg PO DAILY 01/05/15 [History] Aspirin 81 mg PO DAILY 04/16/15 [History] Insulin Glargine [Lantus] 45 unit SQ BID 01/22/17 [History] hydrALAZINE HCL [Apresoline] 75 mg PO TID-W/MEALS 08/15/17 [History] Ferrous Sulfate [Iron (65 MG Elemental)] 325 mg PO DAILY 04/15/18 [History] Insulin Lispro [Admelog] 15 units SQ AC-TID 10/18/18 [History] Ergocalciferol [Vitamin D2 (DRISDOL)] 50,000 unit PO SA 11/28/18 [History] Insulin Lispro [Admelog] See Protocol SQ AC-TID 11/28/18 [History] Isosorbide Mononitrate ER [Imdur] 60 mg PO DAILY 12/09/18 [History] Apixaban [Eliquis] 2.5 mg PO BID #60 tablet 12/23/18 [Rx] Allopurinol [Zyloprim] 200 mg PO BID 07/22/19 [History] Atorvastatin [Lipitor] 80 mg PO HS 07/22/19 [History] Calcitriol 0.5 mcg PO FR 07/22/19 [History] Diltiazem Oral [Cardizem*] 60 mg PO BID 07/22/19 [History] Metoprolol Tartrate [Lopressor] 75 mg PO BID 07/22/19 [History] Torsemide [Demadex] 40 mg PO BID 07/22/19 [History] Famotidine [Pepcid] 20 mg PO DAILY 30 Days #30 tab 07/25/19 [Rx] Ipratropium-Albuterol Nebulize [Duoneb 0.5 mg-3 mg/3 ml Soln] 3 ml INHALATION RT-TID 30 Days #90 ampul.neb 07/25/19 [Rx] Ipratropium-Albuterol Nebulize [Duoneb 0.5 mg-3 mg/3 ml Soln] 3 ml INHALATION RT-TID PRN 30 Days #90 ampul.neb 07/25/19 [Rx] Furosemide [Lasix] 80 mg PO BID@0900,1600 #60 tab 08/02/19 [Rx] Pyridoxine [Vitamin B-6] 100 mg PO QID #120 tab 08/02/19 [Rx] Follow up Appointment(s)/Referral(s): Marilee Núñez MD [STAFF PHYSICIAN] - 08/08/19 10:00 am Gale Amin MD [Primary Care Provider] - 1-2 days Patient Instructions/Handouts: Heart Failure (DC), Low-Sodium Diet (DC) Activity/Diet/Wound Care/Special Instructions: CHF 1. Weigh yourself every morning after you urinate. If you gain 2-3 pounds overnight or 5 pounds in one week, call your primary physician for guidance on your medications. Keep a log of your weights. 2. Avoid salt, or foods with hidden salt. Extra salt makes your heart work harder and traps the fluid in your body for longer. 3. Take all of your medications as directed, especially your water pills. NEVER skip a dose. 4. Elevate your legs when you are not up moving around to help with circulation and prevent swelling. 5. Call your physician if you notice any extra swelling in your legs, ankles, feet or abdomen, if you have a new dry cough, if your shortness of breath worsens with activity or at rest, or if you feel more fatigued.
[2019-08-02] MEDS ORDERED: FUROSEMIDE 80 MG TAB PO SCH (16:00)
== END 2019-08-02 15:05 | disposition home or self-care (01) | DRG 291 ==
LOC: EC 17:49 → 3SCARD 20:41
PROVIDERS: ADMIT Hospitalist; ATTEND Hospitalist
DX: I13.0 Hypertensive heart and chronic kidney disease with heart failure and stage 1 through stage 4 chronic kidney disease, or unspecified chronic kidney disease (principal); I50.33 Acute on chronic diastolic (congestive) heart failure; N18.4 Chronic kidney disease, stage 4 (severe); N17.9 Acute kidney failure, unspecified; B37.0 Candidal stomatitis; Z68.42 Body mass index [BMI] 45.0-49.9, adult; E66.9 Obesity, unspecified; E11.22 Type 2 diabetes mellitus with diabetic chronic kidney disease; E11.40 Type 2 diabetes mellitus with diabetic neuropathy, unspecified; I08.1 Rheumatic disorders of both mitral and tricuspid valves; I27.20 Pulmonary hypertension, unspecified; I48.0 Paroxysmal atrial fibrillation; I25.10 Atherosclerotic heart disease of native coronary artery without angina pectoris; D63.1 Anemia in chronic kidney disease; T45.516A Underdosing of anticoagulants, initial encounter; G47.30 Sleep apnea, unspecified; E78.5 Hyperlipidemia, unspecified; F41.9 Anxiety disorder, unspecified; I25.2 Old myocardial infarction; Z91.138 Patient's unintentional underdosing of medication regimen for other reason; Z79.01 Long term (current) use of anticoagulants; Z79.82 Long term (current) use of aspirin; Z79.4 Long term (current) use of insulin; Z79.899 Other long term (current) drug therapy; Y63.6 Underdosing and nonadministration of necessary drug, medicament or biological substance; Z71.3 Dietary counseling and surveillance; Z95.5 Presence of coronary angioplasty implant and graft; Z99.89 Dependence on other enabling machines and devices; Z88.1 Allergy status to other antibiotic agents; Z88.5 Allergy status to narcotic agent; Z88.2 Allergy status to sulfonamides; Z91.048 Other nonmedicinal substance allergy status; Z83.3 Family history of diabetes mellitus; Z82.49 Family history of ischemic heart disease and other diseases of the circulatory system; Z82.3 Family history of stroke; Z81.8 Family history of other mental and behavioral disorders; Z80.9 Family history of malignant neoplasm, unspecified
CPT/HCPCS: 36415; 71046; 80048; 80053; 81001; 83605; 83735; 83880; 84100; 84484; 85025; 85610; 85730; 93005; 93306; 94640; 94760; 99285

== ENCOUNTER 2020-03-26 14:07 | Emergency (ER) | payer OTHER ==
[2020-03-26 14:17] VITALS: BP 172/67; PULSE 73; RESP 18; TEMP 98
[2020-03-26] MEDS ORDERED: AMOXIC-POT CLAV 875MG STARTER PACK 2 TAB BTL PO STA (14:43)
[2020-03-26] MEDS ORDERED: DIPH,PERTUS(ACELL)TETVAC-LF 0.5 ML VIAL IM ONE (14:43)
--- NOTE | 2020-03-26 14:45 | ED ---
Animal Bite HPI - General Chief Complaint: Animal Bite Stated Complaint: left hand swelling Time Seen by Provider: 03/26/20 14:19 Source: patient Mode of arrival: ambulatory Limitations: no limitations - History of Present Illness Initial Comments: 64-year-old female presenting for left hand Bite. Patient states she was bit 2 days ago by her cat she states rabies vaccinations up-to-date. Denies any abnormal behaviors. She states that she was breaking up an altercation between her 2 cats. Patient states she now noticed swelling of the hand. She states that it occurred gradually over the past 2 days. Patient denies any fevers chills general malaise. Patient has no additional complaints she states there is some slight drainage from the area. She denies any swelling of the digits or difficulty ranging at the fingers. Patient denies any spreading of the redness proximally she states is around the site of the bite. Remaining review of sys tems negative denies any other areas of injury. - Related Data Home Medications Medication Instructions Recorded Confirmed Loratadine [Claritin] 10 mg PO DAILY 01/05/15 02/13/20 Aspirin 81 mg PO DAILY 04/16/15 02/13/20 Insulin Glargine [Lantus] 45 unit SQ BID 01/22/17 02/13/20 hydrALAZINE HCL [Apresoline] 75 mg PO TID-W/MEALS 08/15/17 02/13/20 Ferrous Sulfate [Iron (65 MG 325 mg PO DAILY 04/15/18 02/13/20 Elemental)] Insulin Lispro [Admelog] 15 units SQ AC-TID 10/18/18 02/13/20 Ergocalciferol [Vitamin D2 50,000 unit PO SA 11/28/18 02/13/20 (DRISDOL)] Insulin Lispro [Admelog] See Protocol SQ AC-TID 11/28/18 02/13/20 Isosorbide Mononitrate ER [Imdur] 60 mg PO DAILY 12/09/18 02/13/20 Allopurinol [Zyloprim] 200 mg PO BID 07/22/19 02/13/20 Atorvastatin [Lipitor] 80 mg PO HS 07/22/19 02/13/20 Calcitriol 0.5 mcg PO FR 07/22/19 02/13/20 Diltiazem Oral [Cardizem*] 60 mg PO BID 07/22/19 02/13/20 Metoprolol Tartrate [Lopressor] 75 mg PO BID 07/22/19 02/13/20 Torsemide [Demadex] 40 mg PO BID 07/22/19 02/13/20 Famotidine [Pepcid] 20 mg PO DAILY 08/22/19 02/13/20 Previous Rx's Medication Instructions Recorded Apixaban [Eliquis] 2.5 mg PO BID #60 tablet 12/23/18 Famotidine [Pepcid] 20 mg PO DAILY 30 Days #30 tab 07/25/19 Ipratropium-Albuterol Nebulize 3 ml INHALATION RT-TID 30 Days #90 07/25/19 [Duoneb 0.5 mg-3 mg/3 ml Soln] ampul.neb Ipratropium-Albuterol Nebulize 3 ml INHALATION RT-TID PRN 30 Days 07/25/19 [Duoneb 0.5 mg-3 mg/3 ml Soln] #90 ampul.neb Furosemide [Lasix] 80 mg PO BID@0900,1600 #60 tab 08/02/19 Pyridoxine [Vitamin B-6] 100 mg PO QID #120 tab 08/02/19 Amoxicillin/Potassium Clav 1 tab PO Q12HR 7 Days #14 tab 03/26/20 [Augmentin 875-125 Tablet] Allergies Allergy/AdvReac Type Severity Reaction Status Date / Time ciprofloxacin [From Cipro] Allergy Swelling Verified 03/26/20 14:17 ciprofloxacin HCl Allergy Swelling Verified 03/26/20 14:17 [From Cipro] codeine Allergy Unknown Verified 03/26/20 14:17 latex Allergy Itching Verified 03/26/20 14:17 adhesive tape AdvReac Itching Verified 03/26/20 14:17 cephalexin monohydrate AdvReac Rash/Hives Verified 03/26/20 14:17 [From Keflex] sulfamethoxazole AdvReac Itching Verified 03/26/20 14:17 [From Bactrim] trimethoprim [From Bactrim] AdvReac Itching Verified 03/26/20 14:17 Review of Systems ROS Statement: Those systems with pertinent positive or pertinent negative responses have been documented in the HPI. ROS Other: All systems not noted in ROS Statement are negative. Past Medical History Past Medical History: Blood Disorder, Coronary Artery Disease (CAD), Heart Failure, Diabetes Mellitus, Hyperlipidemia, Hypertension, Myocardial Infarction (PA), Renal Disease Additional Past Medical History / Comment(s): edema, seasonal allergies, Diabetic ulcer-SEES DR ZELAYA FOR WOUND CARE, anemia, neuropathy, CKD Last Myocardial Infarction Date:: 01/10/15 History of Any Multi-Drug Resistant Organisms: None Reported Past Surgical History: Heart Catheterization With Stent Additional Past Surgical History / Comment(s): PT HAD STENT TO DISTAL RCA IN DECEMBER 2014, carpal tunnel bilateral hands, Past Anesthesia/Blood Transfusion Reactions: Family History of Problems w/ Anesthesia, Motion Sickness Additional Past Anesthesia/Blood Transfusion Reaction / Comment(s): states mother had difficulty coming out of anesthesia Date of Last Stent Placement:: 12/30 Past Psychological History: Anxiety Smoking Status: Never smoker Past Alcohol Use History: None Reported Past Drug Use History: None Reported - Past Family History Brother(s) Family Medical History: Cancer Sister(s) Family Medical History: Diabetes Mellitus, Hypertension, Myocardial Infarction (PA), Vascular Disorder Additional Family Medical History / Comment(s): post procedure of five stents Mother Family Medical History: CVA/TIA, Diabetes Mellitus, Myocardial Infarction (PA) Additional Family Medical History / Comment(s): TIA's, PVD. Mother at age 65yrs. Father Family Medical History: Dementia, Diabetes Mellitus, Hypertension Additional Family Medical History / Comment(s): Father at age 72 yrs. General Exam - General Exam Comments Initial Comments: General: The patient is awake and alert, in no distress Eye: Pupils are equal, round and reactive to light, extra-ocular movements are intact. No nystagmus. There is normal conjunctiva bilaterally. No signs of icterus. Cardiovascular: There is a regular rate and rhythm. No murmur, rub or gallop is appreciated. Respiratory: Lungs are clear to auscultation, respirations are non-labored, breath sounds are equal. No wheezes, stridor, rales, or rhonchi. Musculoskeletal: Upon inspection of the hands bilaterally there is no fusiform swelling or forced flexed or extended positioning of the left hand. However there is noted swelling at the site of the 3 puncture wounds of the Right. There is some drainage coming from the nose lateral plate on the dorsal aspect. Patient is slightly tender to touch. Normal ROM, no tenderness of all five digits of the hand. Strength 5/5. Sensation intact. Radial pulses equal bilaterally 2+. Neurological: A&O x 3. CN II-XII intact grossly, There are no obvious motor or sensory deficits. Coordination appears grossly intact. Speech is normal. Skin: Skin is warm and dry and no rashes or lesions are noted. Psychiatric: Cooperative, appropriate mood & affect, normal judgment. Limitations: no limitations Course Vital Signs 03/26/20 14:12 Temperature 98.0 F Pulse Rate 73 Respiratory 18 Rate Blood Pressure 172/67 O2 Sat by Pulse 98 Oximetry Medical Decision Making - Medical Decision Making Concern developing infection after hand. There is no times a day sign support a flexor tenosynovitis. However there is a chance that this may develop if untreated. I had the patient evaluated by my attending provider Dr. Padilla with this time is agreeable to trial of outpatient antibiotics with immediate return for any worsening redness pain or swelling. Patient verbalized understanding is aware that he had ear infections if left untreated can worsen and lead to permanent disability. There is no signs of severe head infection at this time clinically. I discussed importance of return parameters patient verb alized understanding and was discharged appearing well, she was givne option admission vs outpatient antibiotics trial and chose to attempt outpatient regime with strict return parameters. Disposition Clinical Impression: Cat bite of left hand, Cellulitis Disposition: HOME SELF-CARE Condition: Good Instructions (If sedation given, give patient instructions): Animal Bite (ED) Additional Instructions: Please use medication as discussed. Please follow-up with family doctor in the next 24 hours, immediately return to emergency department for increasing swelling redness or pain. Please return to emergency room if the symptoms increase or worsen or for any other concerns. Prescriptions: Amoxicillin/Potassium Clav [Augmentin 875-125 Tablet] 1 tab PO Q12HR 7 Days #14 tab Is patient prescribed a controlled substance at d/c from ED?: No Referrals: Gale Amin MD [Primary Care Provider] - 1-2 days Time of Disposition: 14:44
== END 2020-03-26 15:06 | disposition home or self-care (01) ==
LOC: EC 14:07
DX: L03.114 Cellulitis of left upper limb (principal); S61.452A Open bite of left hand, initial encounter; I25.10 Atherosclerotic heart disease of native coronary artery without angina pectoris; I11.0 Hypertensive heart disease with heart failure; I50.9 Heart failure, unspecified; E78.5 Hyperlipidemia, unspecified; I25.2 Old myocardial infarction; J30.2 Other seasonal allergic rhinitis; E11.40 Type 2 diabetes mellitus with diabetic neuropathy, unspecified; Z23 Encounter for immunization; Z79.82 Long term (current) use of aspirin; Z79.4 Long term (current) use of insulin; Z79.899 Other long term (current) drug therapy; Z88.1 Allergy status to other antibiotic agents; Z88.5 Allergy status to narcotic agent; Z91.040 Latex allergy status; Z91.048 Other nonmedicinal substance allergy status; Z88.2 Allergy status to sulfonamides; Z95.5 Presence of coronary angioplasty implant and graft; W55.01XA Bitten by cat, initial encounter; Y93.89 Activity, other specified; Y92.89 Other specified places as the place of occurrence of the external cause
CPT/HCPCS: 90471; 90715; 99283

== ENCOUNTER 2021-02-04 14:26 | Emergency (ER) | payer OTHER ==
[2021-02-04 15:11] VITALS: BP 183/78; PULSE 68; RESP 18; TEMP 98.1
--- NOTE | 2021-02-04 16:10 | ED ---
Skin/Abscess/FB HPI - General Chief complaint: Skin/Abscess/Foreign Body Stated complaint: Sore on R Leg Time Seen by Provider: 02/04/21 15:30 Source: patient Mode of arrival: ambulatory Limitations: no limitations - History of Present Illness Initial comments: Patient is a 65-year-old female with multiple comorbidities including diabetes, presenting to the emergency Department for recheck of a wound on her right lower leg. Patient states she sees Dr. iWlson weekly for diabetic wound checks. She has an intermittent wound on her right lower leg that comes and goes over the past few years she states. She states last week it seemed to be increasing, she was started on clindamycin [address] Patient [address] Dr. Wilson went out-of-town and wanted her to come in for a check of the wound. Patient denies any fevers or chills, no nausea or vomiting, she denies any increase in her pain. She states the wound is looking better over the last 3 days. She states it seems to be smaller in size in her leg is not swollen. She states the redness is not spreading. She denies any chest pain or short of breath. She has no further complaints at this time. - Related Data Home Medications Medication Instructions Recorded Confirmed Loratadine [Claritin] 10 mg PO DAILY 01/05/15 02/04/21 Aspirin 81 mg PO DAILY 04/16/15 02/04/21 Insulin Glargine [Lantus] 45 unit SQ BID 01/22/17 02/04/21 hydrALAZINE HCL [Apresoline] 75 mg PO TID-W/MEALS 08/15/17 02/04/21 Ferrous Sulfate [Iron (65 MG 325 mg PO DAILY 04/15/18 02/04/21 Elemental)] Insulin Lispro [Admelog] 15 units SQ AC-TID 10/18/18 02/04/21 Ergocalciferol [Vitamin D2 50,000 unit PO SA 11/28/18 02/04/21 (DRISDOL)] Insulin Lispro [Admelog] See Protocol SQ AC-TID 11/28/18 02/04/21 Isosorbide Mononitrate ER [Imdur] 60 mg PO DAILY 12/09/18 02/04/21 Atorvastatin [Lipitor] 80 mg PO HS 07/22/19 02/04/21 Diltiazem Oral [Cardizem*] 60 mg PO BID 07/22/19 02/04/21 Metoprolol Tartrate [Lopressor] 75 mg PO BID 07/22/19 02/04/21 Torsemide [Demadex] 40 mg PO BID 07/22/19 02/04/21 allopurinoL [Zyloprim] 200 mg PO BID 07/22/19 02/04/21 calcitrioL [Calcitriol] 0.5 mcg PO FR 07/22/19 02/04/21 Famotidine [Pepcid] 20 mg PO DAILY 08/22/19 02/04/21 clindamycin HCL [Cleocin] 300 mg PO Q8H 02/04/21 02/04/21 Previous Rx's Medication Instructions Recorded Apixaban [Eliquis] 2.5 mg PO BID #60 tablet 12/23/18 Famotidine [Pepcid] 20 mg PO DAILY 30 Days #30 tab 07/25/19 Ipratropium-Albuterol Nebulize 3 ml INHALATION RT-TID 30 Days #90 07/25/19 [Duoneb 0.5 mg-3 mg/3 ml Soln] ampul.neb Ipratropium-Albuterol Nebulize 3 ml INHALATION RT-TID PRN 30 Days 07/25/19 [Duoneb 0.5 mg-3 mg/3 ml Soln] #90 ampul.neb Furosemide [Lasix] 80 mg PO BID@0900,1600 #60 tab 08/02/19 Pyridoxine [Vitamin B-6] 100 mg PO QID #120 tab 08/02/19 Allergies Allergy/AdvReac Type Severity Reaction Status Date / Time ciprofloxacin [From Cipro] Allergy Swelling Verified 02/04/21 15:11 ciprofloxacin HCl Allergy Swelling Verified 02/04/21 15:11 [From Cipro] codeine Allergy Unknown Verified 02/04/21 15:11 latex Allergy Itching Verified 02/04/21 15:11 adhesive tape AdvReac Itching Verified 02/04/21 15:11 cephalexin monohydrate AdvReac Rash/Hives Verified 02/04/21 15:11 [From Keflex] sulfamethoxazole AdvReac Itching Verified 02/04/21 15:11 [From Bactrim] trimethoprim [From Bactrim] AdvReac Itching Verified 02/04/21 15:11 Review of Systems ROS Statement: Those systems with pertinent positive or pertinent negative responses have been documented in the HPI. ROS Other: All systems not noted in ROS Statement are negative. Past Medical History Past Medical History: Blood Disorder, Coronary Artery Disease (CAD), Heart Failure, Diabetes Mellitus, Hyperlipidemia, Hypertension, Myocardial Infarction ([place]), Renal Disease Additional Past Medical History / Comment(s): edema, seasonal allergies, Diabetic ulcer-SEES DR WILSON FOR WOUND CARE, anemia, neuropathy, CKD Last Myocardial Infarction Date:: 01/10/15 History of Any Multi-Drug Resistant Organisms: None Reported Past Surgical History: Heart Catheterization With Stent Additional Past Surgical History / Comment(s): PT HAD STENT TO DISTAL RCA IN DECEMBER 2014, carpal tunnel bilateral hands, Past Anesthesia/Blood Transfusion Reactions: Family History of Problems w/ Anesthesia, Motion Sickness Additional Past Anesthesia/Blood Transfusion Reaction / Comment(s): states mother had difficulty coming out of anesthesia Date of Last Stent Placement:: 12/30 Past Psychological History: Anxiety Smoking Status: Never smoker Past Alcohol Use History: None Reported Past Drug Use History: None Reported - Past Family History Brother(s) Family Medical History: Cancer Sister(s) Family Medical History: Diabetes Mellitus, Hypertension, Myocardial Infarction ([place]), Vascular Disorder Additional Family Medical History / Comment(s): post procedure of five stents Mother Family Medical History: CVA/TIA, Diabetes Mellitus, Myocardial Infarction ([place]) Additional Family Medical History / Comment(s): TIA's, PVD. Mother at age 65yrs. Father Family Medical History: Dementia, Diabetes Mellitus, Hypertension Additional Family Medical History / Comment(s): Father at age 72 yrs. General Exam - General Exam Comments Initial Comments: GENERAL: Patient is well-developed and well-nourished. Patient is nontoxic and in no acute distress. HEAD: Atraumatic, normocephalic. EYES: Pupils equal round and reactive to light, extraocular movements intact, sclera anicteric, conjunctiva are normal. Eyelids were unremarkable. ENT: Nares patent, oropharynx clear without exudates. Moist mucous membranes. NECK: Normal range of motion, supple without lymphadenopathy or JVD. LUNGS: Unlabored respirations. Breath sounds clear to auscultation bilaterally and equal. No wheezes rales or rhonchi. HEART: Regular rate and rhythm without murmurs, rubs or gallops. ABDOMEN: Soft, nontender, normoactive bowel sounds. No guarding, no rebound. No masses appreciated. : Deferred MUSCULOSKELETAL: Normal extremities with adequate strength and normal range of motion, no pitting or edema. No clubbing or cyanosis. NEUROLOGICAL: Patient is alert and oriented x 3. Motor and sensory are also intact. Cranial nerves II through XII grossly intact. Symmetrical smile. Normal speech, normal gait. PSYCH: Normal mood, normal affect. SKIN: Warm, Dry, normal turgor, no rashes. Patient has a superficial diabetic wound, approximately 3 cm in diameter of the right lower leg, there is some very mild surrounding erythema but no spreading erythema. There is no swelling to the leg, mild pain with palpation. There is some very small amount of drainage. Limitations: no limitations Course Vital Signs 02/04/21 15:06 Temperature 98.1 F Pulse Rate 68 Respiratory 18 Rate Blood Pressure 183/78 O2 Sat by Pulse 97 Oximetry Medical Decision Making - Medical Decision Making Patient is a 65-year-old female with mild comorbidities including diabetes here for a wound check of a chronic diabetic wound on the right lower leg. Her vital signs are stable, no fevers. She is on clindamycin for 2 days now. She sees Dr. Wilson weekly. He wanted her to come into have a wound check secondary to him being out of town. Patient states the wound has been improving. I see no spreading erythema, no swelling, the wound looks stable. I recommended continuing with her clindamycin, she can follow up with Dr. Wilson next week. She is in agreement with this plan. She is stable for discharge. Case discussed with Dr. Padilla. Disposition Clinical Impression: Chronic ulcer of right leg Disposition: HOME SELF-CARE Condition: Stable Instructions (If sedation given, give patient instructions): Chronic Wound Care (ED) Additional Instructions: Please return to the Emergency Department if symptoms worsen or any other concerns. Continue with your already prescribed antibiotic. Follow-up with your doctor next week. Is patient prescribed a controlled substance at d/c from ED?: No Referrals: Gale Amin MD [Primary Care Provider] - 1-2 days Ed Wilson DPM [STAFF PHYSICIAN] - 1-2 days Time of Disposition: 16:10
== END 2021-02-04 16:41 | disposition home or self-care (01) ==
LOC: EC 14:26
DX: E11.622 Type 2 diabetes mellitus with other skin ulcer (principal); L97.219 Non-pressure chronic ulcer of right calf with unspecified severity; E11.40 Type 2 diabetes mellitus with diabetic neuropathy, unspecified; I25.10 Atherosclerotic heart disease of native coronary artery without angina pectoris; I13.0 Hypertensive heart and chronic kidney disease with heart failure and stage 1 through stage 4 chronic kidney disease, or unspecified chronic kidney disease; I50.9 Heart failure, unspecified; N18.9 Chronic kidney disease, unspecified; E78.5 Hyperlipidemia, unspecified; I21.9 Acute myocardial infarction, unspecified; Z79.4 Long term (current) use of insulin
CPT/HCPCS: 99282

== ENCOUNTER 2021-03-30 17:50 | Emergency (ER) | payer OTHER ==
[2021-03-30 18:02] VITALS: TEMP 98.8
[2021-03-30] MEDS ORDERED: PANTOPRAZOLE 40 MG/10 ML VIAL IVP STA (18:05)
[2021-03-30 18:23] LABS: Anisocytosis Slight; Basophils % (A) 0 %; Eosinophils # (A) 0.1 k/uL (0-0.7); Eosinophils % (A) 1 %; HCT 28.3 % (34.0-46.0); HGB 9.9 gm/dL (11.4-16.0); Lymphocytes # (A) 0.9 k/uL (1.0-4.8); Lymphocytes % (A) 9 %; MCH 30.9 pg (25.0-35.0); MCHC 35.1 g/dL (31.0-37.0); Mean Platelet Volume 7.6; Monocytes # (A) 0.5 k/uL (0-1.0); Monocytes % (A) 5 %; Neutrophils # (A) 8.5 k/uL (1.3-7.7); Neutrophils % (A) 83 %; Platelet Count 239 k/uL (150-450); RBC 3.22 m/uL (3.80-5.40); RDW 16.3 % (11.5-15.5); WBC 10.3 k/uL (3.8-10.6)
[2021-03-30 18:30] LABS: Appearance,Urine Clear (Clear); Bilirubin,Urine Negative (Negative); Blood,Urine Negative (Negative); Color,Urine Light Yellow; Glucose,Urine (UA) 4+ (Negative); Hyaline Casts,Urine 1 /lpf (0-2); Ketones,Urine Negative (Negative); Leukocyte Esterase,Urine Negative (Negative); Nitrite,Urine Negative (Negative); Protein,Urine 2+ (Negative); RBC,Urine <1 /hpf (0-5); Specific Gravity,Urine 1.009 (1.001-1.035); Squamous Epithelial Cell,Urine 1 /hpf (0-4); Urobilinogen,Urine <2.0 mg/dL (<2.0); WBC,Urine 2 /hpf (0-5)
[2021-03-30 18:36] LABS: Albumin 3.2 g/dL (3.5-5.0); Calcium 8.5 mg/dL (8.4-10.2); Potassium 3.8 mmol/L (3.5-5.1); Total Bilirubin 0.2 mg/dL (0.2-1.3); Total Protein 6.2 g/dL (6.3-8.2)
--- NOTE | 2021-03-30 18:43 | ED ---
Abdominal Pain HPI - General Chief Complaint: Abdominal Pain Stated Complaint: Abd pain Time Seen by Provider: 03/30/21 18:00 Source: EMS Mode of arrival: EMS Limitations: no limitations - History of Present Illness Initial Comments: 65-year-old female with history of diabetes, heart failure, chronic kidney disease presenting to the emergency department with a chief complaint of abdominal pain nausea vomiting. Patient reports about 10 days ago she came back from vacation and begin to develop epigastric abdominal pain that does not appear to be postprandial. She also reports nausea and multiple episodes of nonbilious and nonbloody vomiting that have also been intermittent. States it is mostly located in the upper abdominal region. She feels like a burning sensation that goes up her esophagus. She denies any associated shortness of breath back pain fevers or chills. Denies hematuria, hematochezia or melena. Denies any increased urgency or frequency or dysuria. Denies any vaginal symptoms. - Related Data Home Medications Medication Instructions Recorded Confirmed Loratadine [Claritin] 10 mg PO DAILY 01/05/15 03/30/21 Aspirin 81 mg PO DAILY 04/16/15 03/30/21 Insulin Glargine [Lantus] 55 unit SQ BID 01/22/17 03/30/21 hydrALAZINE HCL [Apresoline] 50 mg PO BID 08/15/17 03/30/21 Ferrous Sulfate [Iron (65 MG 325 mg PO DAILY 04/15/18 03/30/21 Elemental)] Ergocalciferol [Vitamin D2 50,000 unit PO FR 11/28/18 03/30/21 (DRISDOL)] Isosorbide Mononitrate ER [Imdur] 60 mg PO DAILY 12/09/18 03/30/21 Atorvastatin [Lipitor] 80 mg PO HS 07/22/19 03/30/21 Diltiazem Oral [Cardizem*] 60 mg PO BID 07/22/19 03/30/21 Metoprolol Tartrate [Lopressor] 75 mg PO BID 07/22/19 03/30/21 Torsemide [Demadex] 40 mg PO BID 07/22/19 03/30/21 Allopurinol [Zyloprim] 100 mg PO BID 03/30/21 03/30/21 Dulaglutide [Trulicity] 1.5 mg SQ TU 03/30/21 03/30/21 INSULIN LISPRO (humaLOG) [humaLOG] 20 units SQ AC-TID 03/30/21 03/30/21 INSULIN LISPRO (humaLOG) [humaLOG] See Protocol SQ AC-TID 03/30/21 03/30/21 calcitrioL [Calcitriol] 0.25 mcg PO MOTH 03/30/21 03/30/21 metOLazone [Zaroxolyn] 5 mg PO SUWE 03/30/21 03/30/21 Previous Rx's Medication Instructions Recorded Famotidine [Pepcid] 20 mg PO DAILY 30 Days #30 tab 07/25/19 Ondansetron Odt [Zofran Odt] 4 mg PO Q8HR PRN #20 tab 03/30/21 Allergies Allergy/AdvReac Type Severity Reaction Status Date / Time ciprofloxacin [From Cipro] Allergy Swelling Verified 03/30/21 18:59 ciprofloxacin HCl Allergy Swelling Verified 03/30/21 18:59 [From Cipro] codeine Allergy Unknown Verified 03/30/21 18:59 latex Allergy Itching Verified 03/30/21 18:59 adhesive tape AdvReac Itching Verified 03/30/21 18:59 cephalexin monohydrate AdvReac Rash/Hives Verified 03/30/21 18:59 [From Keflex] sulfamethoxazole AdvReac Itching Verified 03/30/21 18:59 [From Bactrim] trimethoprim [From Bactrim] AdvReac Itching Verified 03/30/21 18:59 Review of Systems ROS Statement: Those systems with pertinent positive or pertinent negative responses have been documented in the HPI. ROS Other: All systems not noted in ROS Statement are negative. Past Medical History Past Medical History: Blood Disorder, Coronary Artery Disease (CAD), Heart Nathaniel lure, Diabetes Mellitus, Hyperlipidemia, Hypertension, Myocardial Infarction ([place]), Renal Disease Additional Past Medical History / Comment(s): edema, seasonal allergies, Diab etic ulcer-SEES DR ZELAYA FOR WOUND CARE, anemia, neuropathy, CKD Last Myocardial Infarction Date:: 01/10/15 History of Any Multi-Drug Resistant Organisms: None Reported Past Surgical History: Heart Catheterization With Stent Additional Past Surgical History / Comment(s): PT HAD STENT TO DISTAL RCA IN DECEMBER 2014, carpal tunnel bilateral hands, Past Anesthesia/Blood Transfusion Reactions: Family History of Problems w/ Anesthesia, Motion Sickness Additional Past Anesthesia/Blood Transfusion Reaction / Comment(s): states mother had difficulty coming out of anesthesia Date of Last Stent Placement:: 12/30 Past Psychological History: Anxiety Smoking Status: Never smoker Past Alcohol Use History: None Reported Past Drug Use History: None Reported - Past Family History Brother(s) Family Medical History: Cancer Sister(s) Family Medical History: Diabetes Mellitus, Hypertension, Myocardial Infarction ([place]), Vascular Disorder Additional Family Medical History / Comment(s): post procedure of five stents Mother Family Medical History: CVA/TIA, Diabetes Mellitus, Myocardial Infarction ([place]) Additional Family Medical History / Comment(s): TIA's, PVD. Mother at age 65yrs. Father Family Medical History: Dementia, Diabetes Mellitus, Hypertension Additional Family Medical History / Comment(s): Father at age 72 yrs. General Exam Limitations: no limitations General appearance: alert, in no apparent distress, obese Head exam: Present: atraumatic, normocephalic, normal inspection Eye exam: Present: normal appearance, PERRL, EOMI Pupils: Present: normal accommodation ENT exam: Present: normal exam, normal oropharynx, mucous membranes moist, TM's normal bilaterally, normal external ear exam Neck exam: Present: normal inspection, full ROM. Absent: tenderness Respiratory exam: Present: normal lung sounds bilaterally. Absent: respiratory distress, wheezes, rales, rhonchi, stridor Cardiovascular Exam: Present: regular rate, normal rhythm, normal heart sounds. Absent: systolic murmur GI/Abdominal exam: Present: soft, tenderness (Epigastric abdominal tenderness). Absent: distended, guarding, rebound, rigid Extremities exam: Present: normal inspection, full ROM, normal capillary refill, other (Palpable DP and PT bilaterally.). Absent: tenderness Back exam: Present: normal inspection, full ROM Neurological exam: Present: alert, oriented X3 Psychiatric exam: Present: normal affect, normal mood Skin exam: Present: warm, dry, intact, normal color Course Vital Signs 03/30/21 17:57 Temperature 98.8 F Pulse Rate 88 Respiratory 20 Rate Blood Pressure 137/56 O2 Sat by Pulse 92 L Oximetry Medical Decision Making - Medical Decision Making 65-year-old female with history of diabetes, heart failure, chronic kidney disease presenting to the emergency department with a chief complaint of abdominal pain nausea vomiting. On physical examination, mild epigastric tenderness. CBC shows no acute findings. CMP shows poor renal function but patient does have history of chronic kidney disease. For this reason, CT without contrast of the abdomen and pelvis was obtained which showed possible perinephric straining, possible pyelonephritis bilaterally. However, this does not appear to be the case clinically. No CVA tenderness. UA only positive for glucose and protein. Patient was given antiemetics and Protonix in the emergency department. On Reevaluation, patient reports feeling good she was eating without any difficulties. States she is comfortable going home. I will give her a GI follow-up. Return parameters were discussed with patient was icing agreeable. Case discussed with physician - Lab Data Result diagrams: 03/30/21 18:09 03/30/21 18:09 Lab Results 03/30/21 03/30/21 03/30/21 Range/Units 18:09 18:09 18:09 WBC 10.3 (3.8-10.6) k/uL RBC 3.22 L (3.80-5.40) m/uL Hgb 9.9 L (11.4-16.0) gm/dL Hct 28.3 L (34.0-46.0) % MCV 88.0 (80.0-100.0) fL MCH 30.9 (25.0-35.0) pg MCHC 35.1 (31.0-37.0) g/dL RDW 16.3 H (11.5-15.5) % Plt Count 239 (150-450) k/uL MPV 7.6 Neutrophils % 83 % Lymphocytes % 9 % Monocytes % 5 % Eosinophils % 1 % Basophils % 0 % Neutrophils # 8.5 H (1.3-7.7) k/uL Lymphocytes # 0.9 L (1.0-4.8) k/uL Monocytes # 0.5 (0-1.0) k/uL Eosinophils # 0.1 (0-0.7) k/uL Basophils # 0.0 (0-0.2) k/uL Anisocytosis Slight Sodium 136 L (137-145) mmol/L Potassium 3.8 (3.5-5.1) mmol/L Chloride 100 (98-107) mmol/L Carbon Dioxide 28 (22-30) mmol/L Anion Gap 8 mmol/L BUN 76 H (7-17) mg/dL Creatinine 3.15 H (0.52-1.04) mg/dL Est GFR (CKD-EPI)AfAm 17 (>60 ml/min/1.73 sqM) Est GFR (CKD-EPI)NonAf 15 (>60 ml/min/1.73 sqM) Glucose 346 H (74-99) mg/dL Calcium 8.5 (8.4-10.2) mg/dL Total Bilirubin 0.2 (0.2-1.3) mg/dL AST 18 (14-36) U/L ALT 17 (4-34) U/L Alkaline Phosphatase 108 (38-126) U/L Troponin I (0.000-0.034) ng/mL NT-Pro-B Natriuret Pep pg/mL Total Protein 6.2 L (6.3-8.2) g/dL Albumin 3.2 L (3.5-5.0) g/dL Amylase 36 (30-110) U/L Lipase 297 (23-300) U/L Urine Color Light Yellow Urine Appearance Clear (Clear) Urine pH 6.0 (5.0-8.0) Ur Specific [place] 1.009 (1.001-1.035) Urine Protein 2+ H (Negative) Urine Glucose (UA) 4+ H (Negative) Urine Ketones Negative (Negative) Urine Blood Negative (Negative) Urine Nitrite Negative (Negative) Urine Bilirubin Negative (Negative) Urine Urobilinogen <2.0 (<2.0) mg/dL Ur Leukocyte Esterase Negative (Negative) Urine RBC <1 (0-5) /hpf Urine WBC 2 (0-5) /hpf Ur Squamous Epith Cells 1 (0-4) /hpf Hyaline Casts 1 (0-2) /lpf 03/30/21 03/30/21 Range/Units 18:09 18:09 WBC (3.8-10.6) k/uL RBC (3.80-5.40) m/uL Hgb (11.4-16.0) gm/dL Hct (34.0-46.0) % MCV (80.0-100.0) fL MCH (25.0-35.0) pg MCHC (31.0-37.0) g/dL RDW (11.5-15.5) % Plt Count (150-450) k/uL MPV Neutrophils % % Lymphocytes % % Monocytes % % Eosinophils % % Basophils % % Neutrophils # (1.3-7.7) k/uL Lymphocytes # (1.0-4.8) k/uL Monocytes # (0-1.0) k/uL Eosinophils # (0-0.7) k/uL Basophils # (0-0.2) k/uL Anisocytosis Sodium (137-145) mmol/L Potassium (3.5-5.1) mmol/L Chloride (98-107) mmol/L Carbon Dioxide (22-30) mmol/L Anion Gap mmol/L BUN (7-17) mg/dL Creatinine (0.52-1.04) mg/dL Est GFR (CKD-EPI)AfAm (>60 ml/min/1.73 sqM) Est GFR (CKD-EPI)NonAf (>60 ml/min/1.73 sqM) Glucose (74-99) mg/dL Calcium (8.4-10.2) mg/dL Total Bilirubin (0.2-1.3) mg/dL AST (14-36) U/L ALT (4-34) U/L Alkaline Phosphatase (38-126) U/L Troponin I 0.021 (0.000-0.034) ng/mL NT-Pro-B Natriuret Pep 1800 pg/mL Total Protein (6.3-8.2) g/dL Albumin (3.5-5.0) g/dL Amylase (30-110) U/L Lipase (23-300) U/L Urine Color Urine Appearance (Clear) Urine pH (5.0-8.0) Ur Specific [place] (1.001-1.035) Urine Protein (Negative) Urine Glucose (UA) (Negative) Urine Ketones (Negative) Urine Blood (Negative) Urine Nitrite (Negative) Urine Bilirubin (Negative) Urine Urobilinogen (<2.0) mg/dL Ur Leukocyte Esterase (Negative) Urine RBC (0-5) /hpf Urine WBC (0-5) /hpf Ur Squamous Epith Cells (0-4) /hpf Hyaline Casts (0-2) /lpf Disposition Clinical Impression: Abdominal pain, Nausea & vomiting Disposition: HOME SELF-CARE Condition: Stable Instructions (If sedation given, give patient instructions): Abdominal Pain (ED) Additional Instructions: Follow with a GI specialist. Drink plenty of fluids. Take prescribed medication as directed. Return to emergency department if symptoms worsen. Prescriptions: Ondansetron Odt [Zofran Odt] 4 mg PO Q8HR PRN #20 tab PRN Reason: Nausea Is patient prescribed a controlled substance at d/c from ED?: No Referrals: Gale Amin MD [Primary Care Provider] - 1-2 days Bertram Cabrera MD [STAFF PHYSICIAN] - 1-2 days Time of Disposition: 21:51
--- NOTE | 2021-03-30 21:16 | CT ---
EXAMINATION TYPE: CT abdomen pelvis wo con DATE OF EXAM: 03/30/2021 COMPARISON: 07/23/2019 INDICATION: Epigastric abdominal tenderness. Poor renal function. DLP: 2222.4 mGycm, Automated exposure control for dose reduction was used. CONTRAST: 0 mL of Isovue 300. Study performed without Oral Contrast TECHNIQUE: Axial images were obtained from above the diaphragm to the pubic rami in the axial plane a t 5 mm thick sections. Reconstructed images are reviewed on the computer in the coronal plane. FINDINGS: Limited CT sections are obtained the lung bases. The lung bases are clear. Coronary artery calcific ation is present. CT ABDOMEN: Liver: Couple of calcified granulomata within the liver. Spleen: Multiple calcified splenic granulomata are present. There is intense calcifications of the sp lenic artery. Pancreas: Normal Adrenal glands: The adrenal glands are normal. Gallbladder: In the coronal plane there may be some debris or milk of calcium within the lower portio n of the gallbladder. This is not as evident on the axial images Kidneys: No masses are evident. No hydronephrosis is present. No cysts are present. Renal artery c alcifications are noted bilaterally. Some perinephric stranding is present. Consider pyelonephritis w ithin the differential. This is bilateral but greater on the right. Aorta: Vascular calcification is within the aorta. Inferior vena cava: Normal. CT PELVIS: Loops of bowel within the abdomen and pelvis are normal. The study is performed without oral cont rast limiting bowel evaluation. Appendix: Normal as visualized. Urinary bladder: Normal. Genitourinary structures: Uterus is normal. Adnexal regions are clear. Osseous structures: No suspicious lytic or sclerotic lesions. Sacroiliac joint has some degenerative change. Facet degenerative changes in the lower lumbar spine. IMPRESSIONS: 1. There is some perinephric stranding present bilaterally. This is slightly greater on the right. C orrelate for pyelonephritis. 2. Extensive vascular calcification present within the abdomen and pelvis. 3. Dense debris within the gallbladder.
[2021-03-30] MEDS ORDERED: ONDANSETRON 4 MG ODT STARTER PACK 2 TAB BTL PO STA (21:46)
[2021-03-30 21:53] VITALS: BP 151/62; PULSE 86; RESP 16
== END 2021-03-30 22:28 | disposition home or self-care (01) ==
LOC: EC 17:50
DX: R10.13 Epigastric pain (principal); R11.2 Nausea with vomiting, unspecified; I25.10 Atherosclerotic heart disease of native coronary artery without angina pectoris; I13.0 Hypertensive heart and chronic kidney disease with heart failure and stage 1 through stage 4 chronic kidney disease, or unspecified chronic kidney disease; N18.9 Chronic kidney disease, unspecified; I50.9 Heart failure, unspecified; E11.22 Type 2 diabetes mellitus with diabetic chronic kidney disease; E78.5 Hyperlipidemia, unspecified; I25.2 Old myocardial infarction; Z95.5 Presence of coronary angioplasty implant and graft
CPT/HCPCS: 36415; 74176; 80053; 81001; 82150; 83690; 83880; 84484; 85025; 96374; 99284

== ENCOUNTER 2021-05-08 22:13 | Emergency (ER) | payer OTHER ==
--- NOTE | 2021-05-09 01:15 | XR ---
EXAMINATION TYPE: XR chest 2V DATE OF EXAM: 05/09/2021 COMPARISON: 07/30/2019 HISTORY: Short of breath. Cough TECHNIQUE: FINDINGS: There is no heart failure nor confluent pneumonic infiltrate. Costophrenic angles are fairl y clear. Thoracic aorta is atheromatous. Bony thorax is intact. IMPRESSION: Atheromatous aorta. No active cardiopulmonary disease. There is clearing of the small ple ural effusions compared to old exam.
--- NOTE | 2021-05-09 01:57 | ED ---
General Adult HPI - General Chief complaint: Nausea/Vomiting/Diarrhea Stated complaint: Sore Throat, Cough Time Seen by Provider: 05/09/21 00:29 Source: patient, RN notes reviewed Mode of arrival: ambulatory - History of Present Illness Initial comments: Patient is a 65-year-old female that presents to emergency room complaining of upper respiratory tract symptoms. Shehad a cough felt congested for about the last week. She notes this is not normal for her. She notes that she does have some heartburn issues. She denied any shortness of breath or lightheadedness. She was a well-appearing 65-year-old female. She was in no apparent distress or pain. She denied any chest pain headache nausea vomiting diarrhea constipation fever fatigue chills. - Related Data Home Medications Medication Instructions Recorded Confirmed Loratadine [Claritin] 10 mg PO DAILY 01/05/15 05/06/21 Aspirin 81 mg PO DAILY 04/16/15 05/06/21 Insulin Glargine [Lantus Vial] 55 unit SQ BID 01/22/17 05/06/21 hydrALAZINE HCL [Apresoline] 50 mg PO BID 08/15/17 05/06/21 Ferrous Sulfate [Iron (65 MG 325 mg PO DAILY 04/15/18 05/06/21 Elemental)] Ergocalciferol [Vitamin D2 50,000 unit PO FR 11/28/18 05/06/21 (DRISDOL)] Isosorbide Mononitrate ER [Imdur] 60 mg PO DAILY 12/09/18 05/06/21 Atorvastatin [Lipitor] 80 mg PO HS 07/22/19 05/06/21 Diltiazem Oral [Cardizem*] 60 mg PO BID 07/22/19 05/06/21 Metoprolol Tartrate [Lopressor] 75 mg PO BID 07/22/19 05/06/21 Torsemide [Demadex] 40 mg PO BID 07/22/19 05/06/21 Allopurinol [Zyloprim] 100 mg PO BID 03/30/21 05/06/21 Dulaglutide [Trulicity] 1.5 mg SQ TU 03/30/21 05/06/21 INSULIN LISPRO (humaLOG) [humaLOG] 20 units SQ AC-TID 03/30/21 05/06/21 INSULIN LISPRO (humaLOG) [humaLOG] See Protocol SQ AC-TID 03/30/21 05/06/21 calcitrioL [Calcitriol] 0.25 mcg PO MOTH 03/30/21 05/06/21 metOLazone [Zaroxolyn] 5 mg PO SUWE 03/30/21 05/06/21 Previous Rx's Medication Instructions Recorded Famotidine [Pepcid] 20 mg PO DAILY 30 Days #30 tab 07/25/19 Ondansetron Odt [Zofran Odt] 4 mg PO Q8HR PRN #20 tab 03/30/21 Allergies Allergy/AdvReac Type Severity Reaction Status Date / Time ciprofloxacin [From Cipro] Allergy Swelling Verified 05/08/21 22:36 ciprofloxacin HCl Allergy Swelling Verified 05/08/21 22:36 [From Cipro] codeine Allergy Unknown Verified 05/08/21 22:36 latex Allergy Itching Verified 05/08/21 22:36 adhesive tape AdvReac Itching Verified 05/08/21 22:36 cephalexin monohydrate AdvReac Rash/Hives Verified 05/08/21 22:36 [From Keflex] sulfamethoxazole AdvReac Itching Verified 05/08/21 22:36 [From Bactrim] trimethoprim [From Bactrim] AdvReac Itching Verified 05/08/21 22:36 Review of Systems ROS Statement: Those systems with pertinent positive or pertinent negative responses have been documented in the HPI. ROS Other: All systems not noted in ROS Statement are negative. Past Medical History Past Medical History: Blood Disorder, Coronary Artery Disease (CAD), Heart Failure, Diabetes Mellitus, Hyperlipidemia, Hypertension, Myocardial Infarction (CT), Renal Disease Additional Past Medical History / Comment(s): edema, seasonal allergies, Diabetic ulcer-SEES DR ZELAYA FOR WOUND CARE, anemia, neuropathy, CKD Last Myocardial Infarction Date:: 01/10/15 History of Any Multi-Drug Resistant Organisms: None Reported Past Surgical History: Heart Catheterization With Stent Additional Past Surgical History / Comment(s): PT HAD STENT TO DISTAL RCA IN DECEMBER 2014, carpal tunnel bilateral hands, Past Anesthesia/Blood Transfusion Reactions: Family History of Problems w/ Anesthesia, Motion Sickness Additional Past Anesthesia/Blood Transfusion Reaction / Comment(s): states mother had difficulty coming out of anesthesia Date of Last Stent Placement:: 12/30 Past Psychological History: Anxiety Smoking Status: Never smoker Past Alcohol Use History: None Reported Past Drug Use History: None Reported - Past Family History Brother(s) Family Medical History: Cancer Sister(s) Family Medical History: Diabetes Mellitus, Hypertension, Myocardial Infarction (CT), Vascular Disorder Additional Family Medical History / Comment(s): post procedure of five stents Mother Family Medical History: CVA/TIA, Diabetes Mellitus, Myocardial Infarction (CT) Additional Family Medical History / Comment(s): TIA's, PVD. Mother at age 65yrs. Father Family Medical History: Dementia, Diabetes Mellitus, Hypertension Additional Family Medical History / Comment(s): Father at age 72 yrs. General Exam General appearance: alert, in no apparent distress, obese Head exam: Present: atraumatic, normocephalic, normal inspection Eye exam: Present: normal appearance, PERRL, EOMI. Absent: scleral icterus, conjunctival injection, periorbital swelling ENT exam: Present: normal exam, normal oropharynx, mucous membranes moist Neck exam: Present: normal inspection Respiratory exam: Present: normal lung sounds bilaterally. Absent: respiratory distress, wheezes, rales, rhonchi, stridor Cardiovascular Exam: Present: regular rate, normal rhythm, normal heart sounds. Absent: systolic murmur, diastolic murmur, rubs, gallop, clicks GI/Abdominal exam: Present: soft, normal bowel sounds. Absent: distended, tenderness, guarding, rebound, rigid Extremities exam: Present: normal inspection, full ROM, normal capillary refill. Absent: tenderness, pedal edema, joint swelling, calf tenderness Neurological exam: Present: alert, oriented X3 Psychiatric exam: Present: normal affect, normal mood Skin exam: Present: warm, dry, intact, normal color. Absent: rash Course Vital Signs 05/08/21 22:34 Temperature 99.3 F Pulse Rate 90 Respiratory 19 Rate Blood Pressure 159/74 O2 Sat by Pulse 98 Oximetry Medical Decision Making - Medical Decision Making 65-year-old female presented emergency department complaining of cough congestion for approximately one week. Chest x-ray, Covid test, strep test ordered. Strep test negative. Covid test negative. Chest x-ray no acute cardiopulmonary process. Patient most likely has a, cold or upper respiratory tract infection. Case discussed with Dr. Washburn, patient can discharge home with follow-up to primary care. - Lab Data Lab Results 05/09/21 05/09/21 Range/Units 00:49 00:49 Coronavirus (PCR) Not Detected (Not Detectd) Group A Strep Rapid Negative (Negative) Disposition Clinical Impression: Upper respiratory tract infection Disposition: HOME SELF-CARE Condition: Stable Instructions (If sedation given, give patient instructions): Upper Respiratory Infection (ED) Additional Instructions: Please return to the Emergency Department if symptoms worsen or any other concerns. Follow-up with primary care 1-2 days. Take, Motrin as day for pain and/or fevers. Take [id number] decongestions cough medicine as needed. Is patient prescribed a controlled substance at d/c from ED?: No Referrals: Gale Amin MD [Primary Care Provider] - 1-2 days Time of Disposition: 01:56
[2021-05-09 02:04] VITALS: BP 153/85; PULSE 88; RESP 18; TEMP 97.8
== END 2021-05-09 02:04 | disposition home or self-care (01) ==
LOC: EC 22:13
DX: J06.9 Acute upper respiratory infection, unspecified (principal); E11.22 Type 2 diabetes mellitus with diabetic chronic kidney disease; E11.40 Type 2 diabetes mellitus with diabetic neuropathy, unspecified; E11.622 Type 2 diabetes mellitus with other skin ulcer; L98.499 Non-pressure chronic ulcer of skin of other sites with unspecified severity; I13.0 Hypertensive heart and chronic kidney disease with heart failure and stage 1 through stage 4 chronic kidney disease, or unspecified chronic kidney disease; I50.9 Heart failure, unspecified; N18.9 Chronic kidney disease, unspecified; I25.10 Atherosclerotic heart disease of native coronary artery without angina pectoris; E78.5 Hyperlipidemia, unspecified; I25.2 Old myocardial infarction; F41.9 Anxiety disorder, unspecified; Z79.4 Long term (current) use of insulin; Z79.82 Long term (current) use of aspirin; Z79.899 Other long term (current) drug therapy; Z82.49 Family history of ischemic heart disease and other diseases of the circulatory system; Z83.3 Family history of diabetes mellitus; Z88.1 Allergy status to other antibiotic agents; Z88.2 Allergy status to sulfonamides
CPT/HCPCS: 71046; 87081; 87430; 87635; 99283

== ENCOUNTER → 2021-06-17 | Outpatient (CLI) | payer OTHER ==
--- NOTE | 2021-06-17 10:08 | US ---
EXAMINATION TYPE: US abdomen complete DATE OF EXAM: 06/17/2021 COMPARISON: CT 2020, US 2019 CLINICAL HISTORY: R11.0 Nausea. EXAM MEASUREMENTS: Liver Length: 19.7 cm Gallbladder Wall: 0.2 cm CBD: 0.4 cm Spleen: n/a Right Kidney: 12.4 x 6.0 x 6.6 cm Left Kidney: 12.8 x 6.2 x 6.5 cm Difficult and limited study due to patient body habitus Pancreas: obscured by overlying midline bowel gas Liver: enlarged, attenuating, heterogeneous, 0.8cm echogenic focus seen this corresponds to the CT e xamination 03/30/2021. Gallbladder: appears wnl Evidence for sonographic Tabares's sign: no CBD: visualized portions wnl, limited by overlying bowel gas Spleen: obscured by overlying bowel gas Right Kidney: wnl Left Kidney: wnl Upper IVC: wnl Abd Aorta: obscured by overlying midline bowel gas IMPRESSION: 1. Examination limited due to bowel gas. 2. Suggestion of mild fatty infiltration of the liver. Hepatomegaly is present. 3. Echogenic foci consistent with posterior shadowing within the liver compatible with known calcific ation.
[2021-06-17 11:11] LABS: Basophils % (A) 0 %; Eosinophils # (A) 0.3 k/uL (0-0.7); Eosinophils % (A) 3 %; HCT 29.8 % (34.0-46.0); HGB 9.8 gm/dL (11.4-16.0); Lymphocytes # (A) 0.9 k/uL (1.0-4.8); Lymphocytes % (A) 8 %; MCH 31.1 pg (25.0-35.0); MCV 94.4 fL (80.0-100.0); Mean Platelet Volume 7.9; Monocytes # (A) 0.4 k/uL (0-1.0); Monocytes % (A) 4 %; Neutrophils # (A) 9.9 k/uL (1.3-7.7); Neutrophils % (A) 85 %; Platelet Count 275 k/uL (150-450); Poikilocytosis Slight; RBC 3.16 m/uL (3.80-5.40); RDW 15.8 % (11.5-15.5); WBC 11.7 k/uL (3.8-10.6)
[2021-06-17 11:23] LABS: Albumin 3.4 g/dL (3.5-5.0); Phosphorus 4.4 mg/dL (2.5-4.5); Potassium 4.2 mmol/L (3.5-5.1); Uric Acid 7.2 mg/dL (3.7-7.4)
[2021-06-17 11:24] LABS: Magnesium 1.6 mg/dL (1.6-2.3)
[2021-06-17 11:54] LABS: Appearance,Urine Cloudy (Clear); Bacteria,Urine Rare /hpf; Bilirubin,Urine Negative (Negative); Blood,Urine Small (Negative); Color,Urine Light Yellow; Glucose,Urine (UA) 4+ (Negative); Hyaline Casts,Urine 1 /lpf (0-2); Ketones,Urine Negative (Negative); Leukocyte Esterase,Urine Large (Negative); Nitrite,Urine Negative (Negative); PH, Urine 6.5 (5.0-8.0); Protein,Urine 2+ (Negative); RBC,Urine 1 /hpf (0-5); Squamous Epithelial Cell,Urine 1 /hpf (0-4); Urobilinogen,Urine <2.0 mg/dL (<2.0); WBC,Urine 48 /hpf (0-5)
[2021-06-17 12:21] LABS: Protein/Creatinine Ratio,Urine 5.78
[2021-06-17 19:05] LABS: % Iron Saturation 18.31 (12.00-45.00)
--- NOTE | 2021-06-20 11:47 | MM ---
Reason for exam: screening (asymptomatic). Last mammogram was performed 2 years and 2 months ago. History: Patient is postmenopausal. Took hormonal contraceptives for 1 year. Physical Findings: A clinical breast exam by your physician is recommended on an annual basis and results should be correlated with mammographic findings. MG Screening Mammo w CAD Bilateral CC and MLO view(s) were taken. Prior study comparison: May 01, 2019, bilateral MG screening mammo w CAD. February 23, 2017, bilateral MG screening mammo w CAD. There are scattered fibroglandular densities. There are benign appearing vascular calcifications bilaterally. There is chronic nodularity in the right breast. Asymmetric breast tissue left subareaolar, stable. There is no discrete abnormality. ASSESSMENT: Benign, BI-RAD 2 RECOMMENDATION: Routine screening mammogram of both breasts in 1 year.
== END | disposition home or self-care (01) ==
LOC: RADUSWWP 09:22
PROVIDERS: ATTEND Family Medicine
DX: R16.0 Hepatomegaly, not elsewhere classified (principal); R93.2 Abnormal findings on diagnostic imaging of liver and biliary tract; Z12.31 Encounter for screening mammogram for malignant neoplasm of breast; N25.81 Secondary hyperparathyroidism of renal origin; M10.9 Gout, unspecified; N39.0 Urinary tract infection, site not specified
CPT/HCPCS: 36415; 76700; 77067; 80048; 81001; 82040; 82306; 82570; 82728; 83540; 83550; 83735; 83970; 84100; 84156; 84550; 85025

== ENCOUNTER 2021-09-19 12:18 | Inpatient (IN) | payer MEDICARE, OTHER ==
[2021-09-19] MEDS ORDERED: ONDANSETRON 4 MG/2 ML VIAL IVP STA (12:56)
[2021-09-19] MEDS ORDERED: SODIUM CHLORIDE 0.9% 1,000 ML IV ONE (12:56)
[2021-09-19] MEDS ORDERED: SODIUM CHLORIDE 0.9% 500 ML 500 ML IV ONE (12:56)
--- NOTE | 2021-09-19 12:59 | ED ---
General Adult HPI - General Chief complaint: Chest Pain Stated complaint: weakness Time Seen by Provider: 09/19/21 12:30 Source: patient, EMS, RN notes reviewed, old records reviewed Mode of arrival: EMS Limitations: no limitations - History of Present Illness Initial comments: This is a 66-year-old female presents emergency Department complaining that for the last few days she's been nauseated and vomiting. Patient denies any diarrhea. Patient states she has some upper abdominal achiness. Patient states she also has been coughing and been a little short of breath. Patient states her chest pain is only associated with her coughing. Patient states when she lies still she is not having any chest pain at all. Patient states she does have a past history of high blood pressure diabetes and previous heart attack. Patient denies getting the COVID vaccine. Patient denies any swelling to her legs or calf tenderness. Patient denies any lightheadedness dizziness or near syncopal episode. Patient denies any headache patient denies numbness weakness. - Related Data Home Medications Medication Instructions Recorded Confirmed Loratadine [Claritin] 10 mg PO DAILY 01/05/15 09/19/21 Aspirin 81 mg PO DAILY 04/16/15 09/19/21 hydrALAZINE HCL [Apresoline] 75 mg PO BID 08/15/17 09/19/21 Ferrous Sulfate [Iron (65 MG 325 mg PO DAILY 04/15/18 09/19/21 Elemental)] Ergocalciferol [Vitamin D2 1,250 mcg PO FR 11/28/18 09/19/21 (DRISDOL)] Isosorbide Mononitrate ER [Imdur] 60 mg PO DAILY 12/09/18 09/19/21 Atorvastatin [Lipitor] 80 mg PO HS 07/22/19 09/19/21 Diltiazem Oral [Cardizem*] 60 mg PO BID 07/22/19 09/19/21 Metoprolol Tartrate [Lopressor] 75 mg PO BID 07/22/19 09/19/21 Torsemide [Demadex] 40 mg PO BID 07/22/19 09/19/21 Allopurinol [Zyloprim] 200 mg PO AC-SUPPER 03/30/21 09/19/21 calcitrioL [Calcitriol] 0.25 mcg PO MOTH 03/30/21 09/19/21 metOLazone [Zaroxolyn] 5 mg PO SUWE 03/30/21 09/19/21 Dulaglutide [Trulicity] 0.75 mg SQ FR 09/19/21 09/19/21 Insulin Lispro Protamin/Lispro 60 units SQ BID 09/19/21 09/19/21 [humaLOG Mix 75-25 Kwikpen] Nitroglycerin Sl Tabs [Nitrostat] 0.4 mg SL Q5M PRN 09/19/21 09/19/21 Previous Rx's Medication Instructions Recorded Famotidine [Pepcid] 20 mg PO DAILY 30 Days #30 tab 07/25/19 Allergies Allergy/AdvReac Type Severity Reaction Status Date / Time ciprofloxacin [From Cipro] Allergy Swelling Verified 09/19/21 13:44 ciprofloxacin HCl Allergy Swelling Verified 09/19/21 13:44 [From Cipro] codeine Allergy Unknown Verified 09/19/21 13:44 latex Allergy Itching Verified 09/19/21 13:44 adhesive tape AdvReac Itching Verified 09/19/21 13:44 cephalexin monohydrate AdvReac Rash/Hives Verified 09/19/21 13:44 [From Keflex] sulfamethoxazole AdvReac Itching Verified 09/19/21 13:44 [From Bactrim] trimethoprim [From Bactrim] AdvReac Itching Verified 09/19/21 13:44 Review of Systems ROS Statement: Those systems with pertinent positive or pertinent negative responses have been documented in the HPI. ROS Other: All systems not noted in ROS Statement are negative. Past Medical History Past Medical History: Blood Disorder, Coronary Artery Disease (CAD), Heart Failure, Diabetes Mellitus, Hyperlipidemia, Hypertension, Myocardial Infarction (ND), Renal Disease Additional Past Medical History / Comment(s): edema, seasonal allergies, Diabetic ulcer-SEES DR ZELAYA FOR WOUND CARE, anemia, neuropathy, CKD Last Myocardial Infarction Date:: 01/10/15 History of Any Multi-Drug Resistant Organisms: None Reported Past Surgical History: Heart Catheterization With Stent Additional Past Surgical History / Comment(s): PT HAD STENT TO DISTAL RCA IN DECEMBER 2014, carpal tunnel bilateral hands, Past Anesthesia/Blood Transfusion Reactions: Family History of Problems w/ Anes thesia, Motion Sickness Additional Past Anesthesia/Blood Transfusion Reaction / Comment(s): states mother had difficulty coming out of anesthesia Date of Last Stent Placement:: 12/30 Past Psychological History: Anxiety Smoking Status: Never smoker Past Alcohol Use History: None Reported Past Drug Use History: None Reported - Past Family History Brother(s) Family Medical History: Cancer Sister(s) Family Medical History: Diabetes Mellitus, Hypertension, Myocardial Infarction (ND), Vascular Disorder Additional Family Medical History / Comment(s): post procedure of five stents Mother Family Medical History: CVA/TIA, Diabetes Mellitus, Myocardial Infarction (ND) Additional Family Medical History / Comment(s): TIA's, PVD. Mother at age 65yrs. Father Family Medical History: Dementia, Diabetes Mellitus, Hypertension Additional Family Medical History / Comment(s): Father at age 72 yrs. General Exam - General Exam Comments Initial Comments: GENERAL: Patient is well-developed and well-nourished. Patient is nontoxic and well- hydrated and is in mild distress. ENT: Neck is soft and supple. No significant lymphadenopathy is noted. Oropharynx is clear. Moist mucous membranes. Neck has full range of motion without eliciting any pain. EYES: The sclera were anicteric and conjunctiva were pink and moist. Extraocular movements were intact and pupils were equal round and reactive to light. Eyelids were unremarkable. PULMONARY: Unlabored respirations. Good breath sounds bilaterally. Slight crackles bilateral bases CARDIOVASCULAR: There is a regular rate and rhythm without any murmurs gallops or rubs. ABDOMEN: Soft and nontender with normal bowel sounds. SKIN: Skin is clear with no lesions or rashes and otherwise unremarkable. NEUROLOGIC: Patient is alert and oriented x3. Cranial nerves II through XII are grossly intact. Motor and sensory are also intact. Normal speech, volume and content. Symmetrical smile. MUSCULOSKELETAL: Normal extremities with adequate strength and full range of motion. No lower e xtremity swelling or edema. No calf tenderness. LYMPHATICS: No significant lymphadenopathy is noted PSYCHIATRIC: Normal psychiatric evaluation. Limitations: no limitations Course Vital Signs 09/19/21 09/19/21 09/19/21 12:28 12:32 13:06 Temperature 97.8 F Pulse Rate 67 Respiratory 18 Rate Blood Pressure 155/65 O2 Sat by Pulse 91 L Oximetry 09/19/21 09/19/21 13:50 15:00 Temperature Pulse Rate 72 75 Respiratory 16 18 Rate Blood Pressure 171/67 170/77 O2 Sat by Pulse 93 L 93 L Oximetry Medical Decision Making - Medical Decision Making EKG shows normal sinus rhythm at 83 bpm OK interval 284 QRS is 94 QT interval 394 QTC is 462 per patient's EKG shows no ST segment elevation or depression. Patient is COVID positive because of her risk factor she is getting monoclonal antibodies however she is not being admitted to the hospital for COVID She is being admitted secondary to her chest discomfort and elevated troponin. I spoke with Dr. Seymour he is in agreement with this. I will write admitting orders and consult cardiology. I also consult pulmonary Chest x-ray shows pulmonary edema. Patient received Lasix and will continue receiving Lasix on the floor. - Lab Data Result diagrams: 09/19/21 13:03 09/19/21 13:03 Lab Results 09/19/21 09/19/21 09/19/21 Range/Units 13:03 13:03 13:03 WBC 3.9 (3.8-10.6) k/uL RBC 2.78 L (3.80-5.40) m/uL Hgb 8.6 L (11.4-16.0) gm/dL Hct 26.0 L (34.0-46.0) % MCV 93.7 (80.0-100.0) fL MCH 31.0 (25.0-35.0) pg MCHC 33.1 (31.0-37.0) g/dL RDW 15.6 H (11.5-15.5) % Plt Count 239 (150-450) k/uL MPV 7.4 Neutrophils % 83 % Lymphocytes % 9 % Monocytes % 5 % Eosinophils % 0 % Basophils % 0 % Neutrophils # 3.3 (1.3-7.7) k/uL Lymphocytes # 0.3 L (1.0-4.8) k/uL Monocytes # 0.2 (0-1.0) k/uL Eosinophils # 0.0 (0-0.7) k/uL Basophils # 0.0 (0-0.2) k/uL Sodium 136 L (137-145) mmol/L Potassium 3.8 (3.5-5.1) mmol/L Chloride 102 (98-107) mmol/L Carbon Dioxide 22 (22-30) mmol/L Anion Gap 12 mmol/L BUN 80 H (7-17) mg/dL Creatinine 3.08 H (0.52-1.04) mg/dL Est GFR (CKD-EPI)AfAm 18 (>60 ml/min/1.73 sqM) Est GFR (CKD-EPI)NonAf 15 (>60 ml/min/1.73 sqM) Glucose 172 H (74-99) mg/dL Calcium 8.2 L (8.4-10.2) mg/dL Magnesium 1.6 (1.6-2.3) mg/dL Total Bilirubin 0.5 (0.2-1.3) mg/dL AST 26 (14-36) U/L ALT 21 (4-34) U/L Alkaline Phosphatase 96 (38-126) U/L Troponin I (0.000-0.034) ng/mL NT-Pro-B Natriuret Pep pg/mL Total Protein 6.2 L (6.3-8.2) g/dL Albumin 3.1 L (3.5-5.0) g/dL Amylase 72 (30-110) U/L Lipase 445 H (23-300) U/L Coronavirus (PCR) Detected A (Not Detectd) 09/19/21 09/19/21 Range/Units 13:03 13:03 WBC (3.8-10.6) k/uL RBC (3.80-5.40) m/uL Hgb (11.4-16.0) gm/dL Hct (34.0-46.0) % MCV (80.0-100.0) fL MCH (25.0-35.0) pg MCHC (31.0-37.0) g/dL RDW (11.5-15.5) % Plt Count (150-450) k/uL MPV Neutrophils % % Lymphocytes % % Monocytes % % Eosinophils % % Basophils % % Neutrophils # (1.3-7.7) k/uL Lymphocytes # (1.0-4.8) k/uL Monocytes # (0-1.0) k/uL Eosinophils # (0-0.7) k/uL Basophils # (0-0.2) k/uL Sodium (137-145) mmol/L Potassium (3.5-5.1) mmol/L Chloride (98-107) mmol/L Carbon Dioxide (22-30) mmol/L Anion Gap mmol/L BUN (7-17) mg/dL Creatinine (0.52-1.04) mg/dL Est GFR (CKD-EPI)AfAm (>60 ml/min/1.73 sqM) Est GFR (CKD-EPI)NonAf (>60 ml/min/1.73 sqM) Glucose (74-99) mg/dL Calcium (8.4-10.2) mg/dL Magnesium (1.6-2.3) mg/dL Total Bilirubin (0.2-1.3) mg/dL AST (14-36) U/L ALT (4-34) U/L Alkaline Phosphatase (38-126) U/L Troponin I 0.203 H* (0.000-0.034) ng/mL NT-Pro-B Natriuret Pep 3770 pg/mL Total Protein (6.3-8.2) g/dL Albumin (3.5-5.0) g/dL Amylase (30-110) U/L Lipase (23-300) U/L Coronavirus (PCR) (Not Detectd) Disposition Clinical Impression: Elevated troponin, Pulmonary edema, COVID Disposition: ADMITTED IP TO THIS HOSP Referrals: Gale Amin MD [Primary Care Provider] - 1-2 days Time of Disposition: 15:43
[2021-09-19 13:12] LABS: Basophils % (A) 0 %; Eosinophils % (A) 0 %; HGB 8.6 gm/dL (11.4-16.0); Lymphocytes # (A) 0.3 k/uL (1.0-4.8); Lymphocytes % (A) 9 %; MCHC 33.1 g/dL (31.0-37.0); MCV 93.7 fL (80.0-100.0); Mean Platelet Volume 7.4; Monocytes # (A) 0.2 k/uL (0-1.0); Monocytes % (A) 5 %; Neutrophils # (A) 3.3 k/uL (1.3-7.7); Neutrophils % (A) 83 %; Platelet Count 239 k/uL (150-450); RBC 2.78 m/uL (3.80-5.40); RDW 15.6 % (11.5-15.5); WBC 3.9 k/uL (3.8-10.6)
[2021-09-19 13:26] LABS: Albumin 3.1 g/dL (3.5-5.0); Calcium 8.2 mg/dL (8.4-10.2); Magnesium 1.6 mg/dL (1.6-2.3); Potassium 3.8 mmol/L (3.5-5.1); Total Bilirubin 0.5 mg/dL (0.2-1.3); Total Protein 6.2 g/dL (6.3-8.2)
[2021-09-19] MEDS ORDERED: SODIUM CHLORIDE 0.9% 50 ML IVPB ONE (15:00)
--- NOTE | 2021-09-19 15:03 | HP ---
HISTORY AND PHYSICAL CHIEF COMPLAINTS: Multiple complaints of nausea, vomiting, chest pain and weakness. HISTORY OF PRESENT ILLNESS: This 66-year-old woman with past medical history of multiple medical problems, including CAD, history of CHF, diabetes mellitus, type 2, history of hypertension, hyperlipidemia, being followed by Dr. Gale Amin in the outpatient setting, was not feeling well over the past several days. Patient had upper respiratory infection, cough, congestion. Patient has not taken the COVID vaccine yet. The patient was complaining of chest pain and also had nausea and vomiting. The patient was admitted for further evaluation and treatment. Creatinine was found to be 3.08. The baseline creatinine is also elevated. The troponin was found to be 0.20. COVID-19 was positive. Lipase was 445. There is no history of any fever, rigors or chills. No history of headache, loss of consciousness, seizures. PAST MEDICAL HISTORY: History of CAD, CHF, diabetes mellitus, type 2, hypertension, hyperlipidemia, history of myocardial infarction, history of CAD, stent. HOME MEDICATIONS: Reviewed. They include Zaroxolyn, Apresoline, calcitriol, Demadex, Nitrostat, Lopressor, Claritin, Imdur, Humalog, iron, vitamin D2, Trulicity, Cardizem, Lipitor, aspirin, zyloprim. Doses are reviewed. ALLERGIES: CIPRO, CODEINE, LATEX, ADHESIVE TAPE, FAMILY HISTORY: History of diabetes, hypertension, myocardial infarction in the family. SOCIAL HISTORY: No history of smoking. No history of alcohol intake. REVIEW OF SYSTEMS: ENT: Diminished hearing. Diminished vision. CARDIOVASCULAR SYSTEM: As mentioned earlier. RESPIRATORY SYSTEM: As mentioned earlier. GI: As mentioned earlier. : No dysuria. NERVOUS SYSTEM: No numbness, weakness. ALLERGY/IMMUNOLOGY: No asthma or hay fever. MUSCULOSKELETAL: As mentioned earlier. HEMATOLOGY/ONCOLOGY: No history of anemia. ENDOCRINE: As mentioned earlier. CONSTITUTIONAL: As mentioned earlier. DERMATOLOGY: Negative. RHEUMATOLOGY: Negative. PSYCHIATRY: As mentioned earlier. PHYSICAL EXAMINATION: Patient alert and oriented x3. Pulse 72, blood pressure 171/67, respirations 16, temperature 97.8, pulse ox 93% on 2 L. HEENT: Conjunctivae normal. NECK: No jugular venous distention. CARDIOVASCULAR: S1, S2 muffled. RESPIRATION: Breath sounds diminished at the bases. A few rhonchi. No crackles. ABDOMEN: Soft, nontender. No mass palpable. LEGS: No edema. No swelling. NERVOUS SYSTEM: Higher functions as mentioned earlier. Moves all 4 limbs. No focal motor or sensory deficit. LYMPHATICS: No lymph node palpable in neck, axillae or groin. SKIN: No ulcer, rash, bleeding. JOINTS: No active deforming arthropathy. LABS: WBC 3.9, hemoglobin 8.6, sodium 136. Chest x-ray is pending. ASSESSMENT: 1. Acute COVID-19 infection with gastrointestinal symptoms and nausea, vomiting; possible acute gastritis. 2. Acute pancreatitis. 3. Acute on chronic renal failure with acute tubular necrosis secondary to prerenal factors and chronic kidney disease, stage 3 baseline. 4. Hyponatremia. 5. Anemia, normocytic anemia of chronic disease. 6. Troponin 0.203. Rule out acute [id number]-elevation myocardial infarction. 7. Diabetes mellitus, type 2. 8. Congestive heart failure and history of coronary artery disease. 9. Hyperlipidemia. 10.Hypertension. 11.History of myocardial infarction. 12.History of seasonal allergies. 13.History of diabetic ulcer. 14.History of coronary artery disease, stent. 15.History of anxiety. 16.Obesity with body mass index of 43.6. 17.FULL CODE. RECOMMENDATIONS AND DISCUSSION: In this 66-year-old woman who presented with multiple complex medical issues, we will monitor the patient closely, continue the current medications, continue symptomatic treatment. IV fluids. Consult Cardiology. Consult Infectious Disease and Nephrology. Overall prognosis is extremely guarded because of multiple complex medical issues, as mentioned earlier. As far as COVID-19 is concerned, the patient is mildly hypoxic. We will consult Dr. Crespo regarding possible remdesivir. Other than that, labs will be repeated. Guarded prognosis. Further recommendations to follow. A copy of this dictation is being forwarded to Dr. Gale Amin, who is the primary physician. MMODL / IJN: [id number] / CHRISTIAN
--- NOTE | 2021-09-19 15:05 | XR ---
EXAMINATION TYPE: XR chest 1V portable DATE OF EXAM: 09/19/2021 COMPARISON: Chest x-ray May 09, 2021 HISTORY: Weakness, chest pain, shortness of breath. TECHNIQUE: Single AP portable frontal upright view of the chest is obtained. FINDINGS: There is more prominent cardiomegaly with atherosclerotic thoracic aorta and worsening per ihilar opacities. The osseous structures are intact. IMPRESSION: Correlate for CHF exacerbation as there is more prominent cardiomegaly with suspected mo derate central vascular congestion.
[2021-09-19] MEDS ORDERED: BAMLANIVIMAB (EUA) 700 MG, ETESEVIMAB (EUA) 1,400 MG in SODIUM CHLORIDE 0.9% 100 ML IVPB ONE (15:15)
[2021-09-19] MEDS ORDERED: FUROSEMIDE 10 MG/ML 4 ML VIAL IV STA (15:42)
[2021-09-19] MEDS ORDERED: ASPIRIN 325 MG TAB PO STA (15:43)
[2021-09-19] MEDS: FUROSEMIDE 10 MG/ML 4 ML VIAL IV SCH (17:52)
[2021-09-19] MEDS: NITROGLYCERIN OINT 1 INCH/GM PACKET TOPICAL SCH ×2 (18:57→22:58)
[2021-09-19] MEDS ORDERED: ALPRAZolam 0.25 MG TAB PO PRN (19:05)
[2021-09-19 19:31] LABS: Appearance,Urine Cloudy (Clear); Bacteria,Urine Rare /hpf; Bilirubin,Urine Negative (Negative); Blood,Urine Small (Negative); Color,Urine Light Yellow; Glucose,Urine (UA) 2+ (Negative); Ketones,Urine Negative (Negative); Leukocyte Esterase,Urine Large (Negative); Mucus,Urine Rare /hpf; Nitrite,Urine Negative (Negative); Protein,Urine 3+ (Negative); RBC,Urine 3 /hpf (0-5); Specific Gravity,Urine 1.013 (1.001-1.035); Squamous Epithelial Cell,Urine 1 /hpf (0-4); Urobilinogen,Urine <2.0 mg/dL (<2.0); WBC,Urine 123 /hpf (0-5)
[2021-09-19 19:39] LABS: Amphetamine Screen,Urine Not Detected (NotDetected); Barbiturate Screen,Urine Not Detected (NotDetected); Benzodiazepines Screen,Urine Not Detected (NotDetected); Cocaine Screen,Urine Not Detected (NotDetected); Methadone Screen, Urine Not Detected (NotDetected); Opiate Screen,Urine Not Detected (NotDetected); Oxycodone Screen, Urine Not Detected (NotDetected); Phencyclidine Screen,Urine Not Detected (NotDetected); Tricyclic Antidepressant,Urine Not Detected (NotDetected); Urn Cannabinoid Scrn Not Detected (NotDetected)
[2021-09-19] MEDS: METOPROLOL TARTRATE 25 MG TAB PO SCH (20:08)
[2021-09-19] MEDS: hydrALAZINE HCL 25 MG TAB PO SCH (20:08)
[2021-09-19] MEDS: ATORVASTATIN 80 MG TAB PO SCH (20:08)
[2021-09-19] MEDS: HEPARIN SODIUM,PORCINE/PF 5,000 UNIT/0.5 ML SYRINGE SQ SCH (20:08)
[2021-09-19] MEDS: DILTIAZEM ORAL 60 MG TAB PO SCH (20:09)
[2021-09-19 20:34] LABS: C Reactive Protein 3.6 mg/dL (<1.0)
[2021-09-19 21:47] LABS: Glucose,Whole Blood 256 mg/dL (75-99)
[2021-09-19] MEDS: INSULN ASP PRT/INSULIN ASPART 100 UNIT/ML 10 ML VIAL SQ SCH (21:48)
[2021-09-20] MEDS: FUROSEMIDE 10 MG/ML 4 ML VIAL IV SCH ×4 (00:38→23:27)
[2021-09-20 05:21] LABS: Glucose,Whole Blood 124 mg/dL (75-99)
[2021-09-20 08:15] LABS: Basophils % (A) 0 %; Eosinophils % (A) 1 %; HGB 8.4 gm/dL (11.4-16.0); Lymphocytes # (A) 0.4 k/uL (1.0-4.8); Lymphocytes % (A) 9 %; MCH 31.2 pg (25.0-35.0); MCHC 33.4 g/dL (31.0-37.0); MCV 93.5 fL (80.0-100.0); Mean Platelet Volume 7.9; Monocytes # (A) 0.3 k/uL (0-1.0); Monocytes % (A) 7 %; Neutrophils # (A) 3.5 k/uL (1.3-7.7); Neutrophils % (A) 82 %; Platelet Count 228 k/uL (150-450); RBC 2.68 m/uL (3.80-5.40); RDW 15.1 % (11.5-15.5); WBC 4.3 k/uL (3.8-10.6)
[2021-09-20] MEDS ORDERED: ASPIRIN 325 MG TAB PO SCH (09:00)
[2021-09-20] MEDS: HEPARIN SODIUM,PORCINE/PF 5,000 UNIT/0.5 ML SYRINGE SQ SCH ×2 (09:05→20:38)
[2021-09-20] MEDS: DILTIAZEM ORAL 60 MG TAB PO SCH ×2 (09:06→20:38)
[2021-09-20] MEDS: ISOSORBIDE MONONITRATE ER 60 MG TAB.ER.24H PO SCH (09:06)
[2021-09-20] MEDS: PANTOPRAZOLE 40 MG TABLET PO SCH (09:06)
[2021-09-20] MEDS: FAMOTIDINE 20 MG TAB PO SCH (09:06)
[2021-09-20] MEDS: FERROUS SULFATE 325 MG TAB PO SCH (09:06)
[2021-09-20] MEDS: LORATADINE 10 MG TAB PO SCH (09:06)
[2021-09-20] MEDS: METOPROLOL TARTRATE 25 MG TAB PO SCH ×2 (09:06→20:38)
[2021-09-20] MEDS: hydrALAZINE HCL 25 MG TAB PO SCH ×2 (09:06→20:38)
[2021-09-20] MEDS: INSULN ASP PRT/INSULIN ASPART 100 UNIT/ML 10 ML VIAL SQ SCH ×2 (09:15→20:38)
[2021-09-20 09:23] LABS: ALT 22 U/L (4-34); AST 28 U/L (14-36); African American GFR (CKD) 16 (>60 ml/min/1.73 sqM); Albumin 2.9 g/dL (3.5-5.0); Alkaline Phosphatase 93 U/L (38-126); Anion Gap 10 mmol/L; Blood Urea Nitrogen 76 mg/dL (7-17); Calcium 7.9 mg/dL (8.4-10.2); Carbon Dioxide 22 mmol/L (22-30); Chloride 103 mmol/L (98-107); Glucose 111 mg/dL (74-99); Lipase 461 U/L (23-300); Non-African American GFR(CKD) 14 (>60 ml/min/1.73 sqM); Potassium 4.7 mmol/L (3.5-5.1); Sodium 135 mmol/L (137-145); Total Bilirubin 0.4 mg/dL (0.2-1.3)
--- NOTE | 2021-09-20 10:27 | P.CRDCN ---
History of Present Illness Consult date: 09/20/21 History of present illness: CHIEF COMPLAINT: Chest pain HISTORY OF PRESENT ILLNESS: This is a 66-year-old female with a past medical history significant for coronary artery disease with previous stenting to the RCA, hypertension, hyperlipidemia, and diabetes. Patient follows in the office with Dr. Núñez. We have been asked to see the patient in consultation for chest pain. The patient was found to be positive for Covid. She is not vaccinated. The patient apparently was only having chest pain when she was coughing. She was found to be in CHF as well. She has been started on IV lasix. Vital signs are stable. DIAGNOSTICS: EKG reveals sinus mechanism with ST depression in inferior leads. Patient with T wave inversions in inferior leads on previous EKG. Chest xray correlate for CHF exacerbation as there is more prominent cardiac male with suspected moderate central vascular congestion Laboratory data: WBC 4.3. Hemoglobin 8.4. Platelet count 228. Sodium 135. Potassium 4.7. BUN 76. Creatinine 3.29. Troponin 0.203. 0.198. 0.183. Current home cardiac medications include hydralazine 75 mg twice a day, Demadex 40 mg twice a day, metoprolol titrate 25 mg twice a day, Imdur 60 mg daily, Cardizem 60 mg twice a day, Lipitor 80 mg at night, aspirin 81 mg daily REVIEW OF SYSTEMS: Thorough review of systems not completed secondary to limited evaluation/examination due to Covid19 PHYSICAL EXAM: Thorough physical exam not completed secondary to limited evaluation/examination due to Covid19 ASSESSMENT: Covid 19 Chest pain, likely secondary to above Acute on chronic diastolic congestive heart failure Abnormal troponins, not suggestive of acute coronary syndrome Coronary artery disease with previous PCI of RCA Hypertension Hyperlipidemia Diabetes PLAN: Obtain 2D echo to assess cardiac structure and function Continue home cardiac medications Continue IV lasix Monitor kidney function Daily weights Accurate I&O Further recommendations pending patient course Nurse practitioner note has been reviewed by physician. Signing provider agrees with the documented findings, assessment, and plan of care. Past Medical History Past Medical History: Blood Disorder, Coronary Artery Disease (CAD), Heart Failure, Diabetes Mellitus, Hyperlipidemia, Hypertension, Myocardial Infarction ([place]), Renal Disease Additional Past Medical History / Comment(s): edema, seasonal allergies, Diabetic ulcer-SEES DR ZELAYA FOR WOUND CARE cellulitis both lower legs and ankles anemia, neuropathy, CKD Last Myocardial Infarction Date:: 01/10/15 History of Any Multi-Drug Resistant Organisms: None Reported Past Surgical History: Heart Catheterization With Stent Additional Past Surgical History / Comment(s): PT HAD STENT TO DISTAL RCA IN DECEMBER 2014, carpal tunnel bilateral hands, Past Anesthesia/Blood Transfusion Reactions: Family History of Problems w/ Anesthesia, Motion Sickness Additional Past Anesthesia/Blood Transfusion Reaction / Comment(s): states mother had difficulty coming out of anesthesia Date of Last Stent Placement:: 12/30 Past Psychological History: Anxiety Additional Psychological History / Comment(s): Pt states she lives in her home with her adult neaggie and nephew. She is independent. She uses no assistive device. She drives. Smoking Status: Never smoker Past Alcohol Use History: None Reported Past Drug Use History: None Reported - Past Family History Brother(s) Family Medical History: Cancer Sister(s) Family Medical History: Diabetes Mellitus, Hypertension, Myocardial Infarction ([place]), Vascular Disorder Additional Family Medical History / Comment(s): post procedure of five s tents Mother Family Medical History: CVA/TIA, Diabetes Mellitus, Myocardial Infarction ([place]) Additional Family Medical History / Comment(s): TIA's, PVD. Mother at age 65yrs. Father Family Medical History: Dementia, Diabetes Mellitus, Hypertension Additional Family Medical History / Comment(s): Father at age 72 yrs. Medications and Allergies Home Medications Medication Instructions Recorded Confirmed Type Loratadine [Claritin] 10 mg PO DAILY 01/05/15 09/19/21 History Aspirin 81 mg PO DAILY 04/16/15 09/19/21 History hydrALAZINE HCL [Apresoline] 75 mg PO BID 08/15/17 09/19/21 History Ferrous Sulfate [Iron (65 MG 325 mg PO DAILY 04/15/18 09/19/21 History Elemental)] Ergocalciferol [Vitamin D2 1,250 mcg PO FR 11/28/18 09/19/21 History (DRISDOL)] Isosorbide Mononitrate ER [Imdur] 60 mg PO DAILY 12/09/18 09/19/21 History Atorvastatin [Lipitor] 80 mg PO HS 07/22/19 09/19/21 History Diltiazem Oral [Cardizem*] 60 mg PO BID 07/22/19 09/19/21 History Metoprolol Tartrate [Lopressor] 75 mg PO BID 07/22/19 09/19/21 History Torsemide [Demadex] 40 mg PO BID 07/22/19 09/19/21 History Famotidine [Pepcid] 20 mg PO DAILY 30 Days #30 tab 07/25/19 09/19/21 Rx Allopurinol [Zyloprim] 200 mg PO AC-SUPPER 03/30/21 09/19/21 History calcitrioL [Calcitriol] 0.25 mcg PO MOTH 03/30/21 09/19/21 History metOLazone [Zaroxolyn] 5 mg PO SUWE 03/30/21 09/19/21 History Dulaglutide [Trulicity] 0.75 mg SQ FR 09/19/21 09/19/21 History Insulin Lispro Protamin/Lispro 60 units SQ BID 09/19/21 09/19/21 History [humaLOG Mix 75-25 Kwikpen] Nitroglycerin Sl Tabs [Nitrostat] 0.4 mg SL Q5M PRN 09/19/21 09/19/21 History Allergies Allergy/AdvReac Type Severity Reaction Status Date / Time ciprofloxacin [From Cipro] Allergy Swelling Verified 09/19/21 13:44 ciprofloxacin HCl Allergy Swelling Verified 09/19/21 13:44 [From Cipro] codeine Allergy Unknown Verified 09/19/21 13:44 latex Allergy Itching Verified 09/19/21 13:44 adhesive tape AdvReac Itching Verified 09/19/21 13:44 cephalexin monohydrate AdvReac Rash/Hives Verified 09/19/21 13:44 [From Keflex] sulfamethoxazole AdvReac Itching Verified 09/19/21 13:44 [From Bactrim] trimethoprim [From Bactrim] AdvReac Itching Verified 09/19/21 13:44 Physical Exam Vitals: Vital Signs Temp Pulse Pulse Resp BP BP Pulse Ox 09/20/21 05:00 98.6 F 75 24 175/75 97 09/20/21 04:00 98.7 F 70 20 155/67 97 09/20/21 03:00 64 18 165/78 94 L 09/20/21 02:00 78 20 168/79 97 09/20/21 00:25 26 H 09/20/21 00:00 64 22 141/75 97 09/19/21 22:00 64 18 165/78 93 L 09/19/21 17:11 82 18 160/68 93 L 09/19/21 15:00 75 18 170/77 93 L 09/19/21 13:50 72 16 171/67 93 L 09/19/21 13:06 97.8 F 09/19/21 12:32 155/65 09/19/21 12:28 67 18 91 L Intake and Output 09/19/21 09/20/21 09/20/21 22:59 06:59 14:59 Other: Voiding Method Toilet Bedside Commode Weight 128.2 kg 128.2 kg Results 09/20/21 07:50 09/20/21 07:50 Cardiac Enzymes 09/19/21 09/19/21 09/19/21 Range/Units 13:03 13:03 16:16 AST 26 (14-36) U/L Lactate Dehydrogenase (313-618) U/L Troponin I 0.203 H* 0.198 H* (0.000-0.034) ng/mL 09/19/21 09/20/21 09/20/21 Range/Units 19:51 07:50 07:50 AST 28 (14-36) U/L Lactate Dehydrogenase 587 (313-618) U/L Troponin I 0.183 H* (0.000-0.034) ng/mL CBC 09/19/21 09/20/21 Range/Units 13:03 07:50 WBC 3.9 4.3 (3.8-10.6) k/uL RBC 2.78 L 2.68 L (3.80-5.40) m/uL Hgb 8.6 L 8.4 L (11.4-16.0) gm/dL Hct 26.0 L 25.0 L (34.0-46.0) % Plt Count 239 228 (150-450) k/uL Comprehensive Metabolic Panel 09/19/21 09/20/21 Range/Units 13:03 07:50 Sodium 136 L 135 L (137-145) mmol/L Potassium 3.8 4.7 (3.5-5.1) mmol/L Chloride 102 103 (98-107) mmol/L Carbon Dioxide 22 22 (22-30) mmol/L BUN 80 H 76 H (7-17) mg/dL Creatinine 3.08 H 3.29 H (0.52-1.04) mg/dL Glucose 172 H 111 H (74-99) mg/dL Calcium 8.2 L 7.9 L (8.4-10.2) mg/dL AST 26 28 (14-36) U/L ALT 21 22 (4-34) U/L Alkaline Phosphatase 96 93 (38-126) U/L Total Protein 6.2 L 6.0 L (6.3-8.2) g/dL Albumin 3.1 L 2.9 L (3.5-5.0) g/dL Current Medications Generic Name Dose Route Start Last Admin Trade Name Freq PRN Reason Stop Dose Admin Allopurinol 200 mg 09/20/21 17:30 Allopurinol 100 Mg Tab PO AC-SUPPER ELISABETH Alprazolam 0.25 mg 09/19/21 19:05 Alprazolam 0.25 Mg Tab PO TID PRN Anxiety Aspirin 81 mg 09/20/21 09:00 Aspirin 81 Mg PO DAILY [facility] Atorvastatin Calcium 80 mg 09/19/21 21:00 09/19/21 20:08 Atorvastatin 80 Mg Tab PO 80 mg HS [facility] Administration Calcitriol 0.25 mcg 09/19/21 20:00 09/19/21 20:09 Calcitriol 0.25 Mcg Cap PO 0.25 mcg MOTH ELISABETH Administration Diltiazem HCl 60 mg 09/19/21 21:00 09/20/21 09:06 Diltiazem Oral 60 Mg Tab PO 60 mg BID ELISABETH Administration Ergocalciferol 1,250 mcg 09/23/21 09:00 Ergocalciferol 1,250 Mcg (50,000 Iu) Capsule PO FR [facility] Famotidine 20 mg 09/20/21 09:00 09/20/21 09:06 Famotidine 20 Mg Tab PO 20 mg DAILY ELISABETH Administration Ferrous Sulfate 325 mg 09/20/21 09:00 09/20/21 09:06 Ferrous Sulfate 325 Mg Tab PO 325 mg DAILY ELISABETH Administration Furosemide 40 mg 09/19/21 16:00 09/20/21 09:05 Furosemide 10 Mg/Ml 4 Ml Vial IV 40 mg Q8HR ELISABETH Administration Heparin Sodium (Porcine) 5,000 unit 09/19/21 21:00 09/20/21 09:05 Heparin Sodium,Porcine/Pf 5,000 Unit/0.5 Ml Syringe SQ 5,000 unit Q12HR ELISABETH Administration Hydralazine HCl 75 mg 09/19/21 21:00 09/20/21 09:06 Hydralazine Hcl 25 Mg Tab PO 75 mg BID ELISABETH Administration Insulin Aspart 60 unit 09/19/21 21:00 09/20/21 09:15 Insuln Asp Prt/Insulin Aspart 100 Unit/Ml 10 Ml Vial SQ 60 unit BID ELISABETH Administration Isosorbide Mononitrate 60 mg 09/20/21 09:00 09/20/21 09:06 Isosorbide Mononitrate Er 60 Mg Tab.Er.24h PO 60 mg DAILY ELISABETH Administration Loratadine 10 mg 09/20/21 09:00 09/20/21 09:06 Loratadine 10 Mg Tab PO 10 mg DAILY ELISABETH Administration Metolazone 5 mg 09/21/21 09:00 Metolazone 5 Mg Tab PO SUWE [facility] Metoprolol Tartrate 75 mg 09/19/21 21:00 09/20/21 09:06 Metoprolol Tartrate 25 Mg Tab PO 75 mg BID [facility] Administration Dulaglutide [ 0.75 mg 09/23/21 09:00 Trulicity] 0.75 Mg/0 SQ .5 Ml Each FR [facility] Pantoprazole Sodium 40 mg 09/20/21 07:30 09/20/21 09:06 Pantoprazole 40 Mg Tablet PO 40 mg [id number] ELISABETH Administration Intake and Output 09/19/21 09/20/21 09/20/21 22:59 06:59 14:59 Other: Voiding Method Toilet Bedside Commode Weight 128.2 kg 128.2 kg 09/20/21 07:50 09/20/21 07:50
--- NOTE | 2021-09-20 11:00 | P.NPCON ---
History of Present Illness - Reason for Consult acute renal failure, chronic renal failure - History of Present Illness Reason for consultation: Chronic kidney disease History of present illness: Patient is a 66-year-old female seen in renal consultation for chronic kidney disease. Patient has chronic kidney disease stage IV with baseline creatinine in the range of 3-4 secondary to diabetic kidney disease and nephrosclerosis. Creatinine on admission was 3.08 and is 3.29 today. Patient presented to the hospital with generalized weakness and nausea and vomiting. She also admits to a cough with clear phlegm. Denies chest pain. She did test positive for coronavirus. She is noted to have edema in her lower extremities. Chest x-ray suggestive of CHF. She is currently maintained on IV Lasix 40 mg 3 times daily. Has been voiding. Denies dysuria or hematuria. No flank or abdominal pain. Denies use of nonsteroidals. Patient has long-standing history of diabetes. Hemodynamically she stable. She is currently on 2 L nasal cannula. Vital signs are stable. General: On nasal cannula. HEENT: Head exam is unremarkable. LUNGS: Breath sounds decreased. HEART: Rate and Rhythm are regular. ABDOMEN: Soft, no distention. EXTREMITITES: 1+ edema. Past Medical History Past Medical History: Blood Disorder, Coronary Artery Disease (CAD), Heart Failure, Diabetes Mellitus, Hyperlipidemia, Hypertension, Myocardial Infarction ([place]), Renal Disease Additional Past Medical History / Comment(s): edema, seasonal allergies, Diabetic ulcer-SEES DR ZELAYA FOR WOUND CARE cellulitis both lower legs and ankles anemia, neuropathy, CKD Last Myocardial Infarction Date:: 01/10/15 History of Any Multi-Drug Resistant Organisms: None Reported Past Surgical History: Heart Catheterization With Stent Additional Past Surgical History / Comment(s): PT HAD STENT TO DISTAL RCA IN DECEMBER 2014, carpal tunnel bilateral hands, Past Anesthesia/Blood Transfusion Reactions: Family History of Problems w/ Anesthesia, Motion Sickness Additional Past Anesthesia/Blood Transfusion Reaction / Comment(s): states mother had difficulty coming out of anesthesia Date of Last Stent Placement:: 12/30 Past Psychological History: Anxiety Additional Psychological History / Comment(s): Pt states she lives in her home with her adult neice and nephew. She is independent. She uses no assistive device. She drives. Smoking Status: Never smoker Past Alcohol Use History: None Reported Past Drug Use History: None Reported - Past Family History Brother(s) Family Medical History: Cancer Sister(s) Family Medical History: Diabetes Mellitus, Hypertension, Myocardial Infarction ([place]), Vascular Disorder Additional Family Medical History / Comment(s): post procedure of five stents Mother Family Medical History: CVA/TIA, Diabetes Mellitus, Myocardial Infarction ([place]) Additional Family Medical History / Comment(s): TIA's, PVD. Mother at age 65yrs. Father Family Medical History: Dementia, Diabetes Mellitus, Hypertension Additional Family Medical History / Comment(s): Father at age 72 yrs. Medications and Allergies Home Medications Medication Instructions Recorded Confirmed Type Loratadine [Claritin] 10 mg PO DAILY 01/05/15 09/19/21 History Aspirin 81 mg PO DAILY 04/16/15 09/19/21 History hydrALAZINE HCL [Apresoline] 75 mg PO BID 08/15/17 09/19/21 History Ferrous Sulfate [Iron (65 MG 325 mg PO DAILY 04/15/18 09/19/21 History Elemental)] Ergocalciferol [Vitamin D2 1,250 mcg PO FR 11/28/18 09/19/21 History (DRISDOL)] Isosorbide Mononitrate ER [Imdur] 60 mg PO DAILY 12/09/18 09/19/21 History Atorvastatin [Lipitor] 80 mg PO HS 07/22/19 09/19/21 History Diltiazem Oral [Cardizem*] 60 mg PO BID 07/22/19 09/19/21 History Metoprolol Tartrate [Lopressor] 75 mg PO BID 07/22/19 09/19/21 History Torsemide [Demadex] 40 mg PO BID 07/22/19 09/19/21 History Famotidine [Pepcid] 20 mg PO DAILY 30 Days #30 tab 07/25/19 09/19/21 Rx Allopurinol [Zyloprim] 200 mg PO AC-SUPPER 03/30/21 09/19/21 History calcitrioL [Calcitriol] 0.25 mcg PO MOTH 03/30/21 09/19/21 History metOLazone [Zaroxolyn] 5 mg PO SUWE 03/30/21 09/19/21 History Dulaglutide [Trulicity] 0.75 mg SQ FR 09/19/21 09/19/21 History Insulin Lispro Protamin/Lispro 60 units SQ BID 09/19/21 09/19/21 History [humaLOG Mix 75-25 Kwikpen] Nitroglycerin Sl Tabs [Nitrostat] 0.4 mg SL Q5M PRN 09/19/21 09/19/21 History Allergies Allergy/AdvReac Type Severity Reaction Status Date / Time ciprofloxacin [From Cipro] Allergy Swelling Verified 09/19/21 13:44 ciprofloxacin HCl Allergy Swelling Verified 09/19/21 13:44 [From Cipro] codeine Allergy Unknown Verified 09/19/21 13:44 latex Allergy Itching Verified 09/19/21 13:44 adhesive tape AdvReac Itching Verified 09/19/21 13:44 cephalexin monohydrate AdvReac Rash/Hives Verified 09/19/21 13:44 [From Keflex] sulfamethoxazole AdvReac Itching Verified 09/19/21 13:44 [From Bactrim] trimethoprim [From Bactrim] AdvReac Itching Verified 09/19/21 13:44 Physical Exam Vitals: Vital Signs Temp Pulse Pulse Resp BP BP Pulse Ox 09/20/21 08:00 98.4 F 72 20 157/96 95 09/20/21 05:00 98.6 F 75 24 175/75 97 09/20/21 04:00 98.7 F 70 20 155/67 97 09/20/21 03:00 64 18 165/78 94 L 09/20/21 02:00 78 20 168/79 97 09/20/21 00:25 26 H 09/20/21 00:00 64 22 141/75 97 09/19/21 22:00 64 18 165/78 93 L 09/19/21 17:11 82 18 160/68 93 L 09/19/21 15:00 75 18 170/77 93 L 09/19/21 13:50 72 16 171/67 93 L 09/19/21 13:06 97.8 F 09/19/21 12:32 155/65 09/19/21 12:28 67 18 91 L Intake and Output 09/19/21 09/20/21 09/20/21 22:59 06:59 14:59 Other: Voiding Method Toilet Bedside Commode # Voids 1 Weight 128.2 kg 128.2 kg Results - Lab Results Most recent lab results Calcium 7.9 mg/dL (8.4-10.2) L 09/20/21 07:50 Magnesium 1.6 mg/dL (1.6-2.3) 09/19/21 13:03 09/20/21 07:50 09/20/21 07:50 Assessment and Plan Plan: Assessment: 1. 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 Baseline creatinine in the range of 3-4. GFR at baseline. 2. Volume overload. 3. Anemia of chronic kidney disease. Rule out iron deficiency. 4. COVID-19 infection. 5. Acute on chronic diastolic CHF with mild to moderate mitral regurgitation. 6. Hypertension with chronic kidney disease. 7. Diabetes mellitus. 8. Chronic kidney disease mineral bone disease maintained on calcitriol. Plan: Maintain IV Lasix. Low-salt diet. Check iron studies. Continue to monitor renal function and urine output. Avoid nephrotoxins. Check urine culture. Thank you for the consultation. I will continue to follow the patient with you during her hospital stay.
[2021-09-20 12:07] LABS: Glucose,Whole Blood 136 mg/dL (75-99)
[2021-09-20] MEDS: ASPIRIN 81 MG PO SCH (12:07)
--- NOTE | 2021-09-20 12:54 | ECHOF ---
Referral Reason:[facility] MEASUREMENTS -------- HEIGHT: 167.6 cm WEIGHT: 127.9 kg BP: 175/75 IVSd: 1.6 cm (0.6 - 1.1) LVIDd: 5.4 cm (3.9 - 5.3) LVPWd: 1.4 cm (0.6 - 1.1) IVSs: 1.8 cm LVIDs: 3.9 cm LVPWs: 1.7 cm FINDINGS -------- Sinus rhythm. This was a technically difficult study with suboptimal apical views. The left ventricular size is normal. There is moderate concentric left ventricular hypertrophy. O verall left ventricular systolic function is low-normal with, an EF between 50 - 55 %. Mild mitral regurgitation is present. There is no pericardial effusion. CONCLUSIONS -------- 1. The left ventricular size is normal. 2. There is moderate concentric left ventricular hypertrophy. 3. Overall left ventricular systolic function is low-normal with, an EF between 50 - 55 %. 4. Mild mitral regurgitation is present. MEDICAL MICROBIOLOGIST: Anusha Pollard, RUST
[2021-09-20 14:13] VITALS: BMI 45.6
[2021-09-20 15:21] LABS: Chol/HDL Ratio 4.68 Ratio; LDL Cholesterol,Calculated 56.9 mg/dL (0.0-131.0)
[2021-09-20 16:28] LABS: % Iron Saturation 8.3 (12.00-45.00)
--- NOTE | 2021-09-20 16:52 | PN ---
PROGRESS NOTE DATE OF SERVICE: 09/20/2021 This 66-year-old woman was admitted with multiple medical problems and was having chest pain and weakness. Was found on Covid-19 pneumonia and acute pancreatitis and as well as acute Covid-19 bilateral interstitial pneumonia. The D-dimer was elevated to 1.55. Creatinine is up to 3.29. The patient is being closely monitored at this time. Multiple consultants are following the patient closely. The troponin was found to be 0.183 and lipase is 461. PAST MEDICAL HISTORY: Reviewed. REVIEW OF SYSTEMS: Cardiovascular system: No angina. Respiratory system: As mentioned earlier. GI: As mentioned earlier. : No dysuria. Nervous system: No numbness or weakness. CURRENT MEDICATIONS: Reviewed include zyloprim, Xanax, aspirin, Lipitor, Rocaltrol, Cardizem, Pepcid, Lasix, Cefazolin, NovoLog mix, Claritin, Zaroxolyn, lopressor, Protonix. Doses reviewed. PHYSICAL EXAMINATION: The patient is alert and oriented x3. Pulse 76, blood pressure 120/60, respiration 20, temperature 97.7, pulse ox 98% on 2 L. HEENT: Conjunctivae normal. Oral mucosa moist. NECK: No jugular venous distention. No lymph node enlargement. CARDIOVASCULAR: S1, S2, muffled. No S3, no S4, RESPIRATORY: Diminished breath sounds at the bases. A few scattered rhonchi and crackles. ABDOMEN: Soft, nontender. LEGS: No edema, no swelling. NERVOUS SYSTEM: No focal deficits. LAB STUDIES: WBC 4, hemoglobin is 8.4, sodium 130, potassium 4.7 and troponin 0.183. ASSESSMENT: 1. Acute COVID-19 infection with gastrointestinal symptoms with nausea and vomiting, possible acute gastritis. 2. Acute pancreatitis. 3. Acute on chronic renal failure with acute tubular necrosis secondary to prerenal factors and chronic kidney disease stage 3 baseline. 4. Hyponatremia. 5. Anemia, normocytic anemia of chronic disease. 6. Troponin 0.203. Rule out acute [id number]-elevation myocardial infarction. 7. Diabetes mellitus, type 2. 8. Congestive heart failure and history of coronary artery disease. 9. Normal ejection fraction, 50-55% on 2D echo. 10.Hyperlipidemia. 11.Elevated D-dimer. 12.Hypertension. 13.History of myocardial infarction. 14.History of seasonal allergies. 15.History of diabetic ulcer. 16.History of CAD/stent. 17.History of anxiety. 18.Obesity with body mass index 43.6. 19.FULL CODE. RECOMMENDATIONS AND DISCUSSION: I recommend to continue current management and symptomatic treatment. Otherwise, the patient has predominantly GI symptoms and amylase and lipase still elevated. Symptomatic treatment. I would also recommend a CT scan of the abdomen, pelvis and chest to rule out the possibility of any associated complications and V/Q scan to rule out the possibility of pulmonary embolism. Multiple consults are following the patient closely including Nephrology. Guarded prognosis. Further recommendations to follow. A 2D echo showed ejection fraction 50-55%. MMODL / IJN: [id number] /
--- NOTE | 2021-09-20 17:35 | P.CNPUL ---
History of Present Illness Consult date: 09/20/21 Requesting physician: Aylin Seymour Reason for consult: dyspnea, hypoxemia, pleural effusion, abnormal CXR/CT Chief complaint: Shortness of breath. History of present illness: Pulmonary consult dated 09/20/2021. This is a 66-year-old female, who presents to the emergency department on September 19, complaining of chest pain, weakness, and shortness of breath. The patient has not been feeling well for 2 or 3 days prior to admission. She's had some nausea and vomiting. No diarrhea. She has some mild upper abdominal cramping. In addition, the patient has been short of breath, and been coughing a bit. The patient has a history of hypertension, diabetes, and previous myocardial infarction. The patient has not been vaccinated against coronavirus. In addition, the patient has a history of heart failure, hyperlipidemia, hypertension, diabetic ulcers, diabetic neuropathy, and chronic kidney disease. She has had a heart catheterization with stent placement. She is a lifelong nonsmoker. White count 4.3, hemoglobin 8.4, hematocrit 25, and platelet count 228,000. Sodium 135, potassium 4.7, chlorides 103, CO2 22, anion gap 10, BUN 76, and creatinine 3.29. Troponin was 0.183. N-terminal proBNP was 3770. Urine has 3+ protein, 2+ glucose, large positive leukocyte esterase, 123 WBCs, and rare bacteria. Testing for coronavirus was positive. Chest x-ray shows evidence of cardiomegaly, and bilateral infiltrates. The patient apparently got monoclonal antibody in the emergency department, on September 19. Review of Systems REVIEW OF SYSTEMS: CONSTITUTIONAL: weakness and dehydration. NEUROLOGIC: [ Negative.] HEENT: [ Negative.] CARDIAC: [Negative.] PULMONARY: cough and shortness of breath. GI: nausea and vomiting. : [Negative.] RHEUMATOLOGIC: [ Negative.] IMMUNOLOGIC: [ Negative.] ENDOCRINE: [Negative. ] DERMATOLOGIC: [Negative.] Past Medical History Past Medical History: Blood Disorder, Coronary Artery Disease (CAD), Heart Failure, Diabetes Mellitus, Hyperlipidemia, Hypertension, Myocardial Infarction (MD), Renal Disease Additional Past Medical History / Comment(s): edema, seasonal allergies, Diabetic ulcer-SEES DR ZELAYA FOR WOUND CARE cellulitis both lower legs and ankles anemia, neuropathy, CKD Last Myocardial Infarction Date:: 01/10/15 History of Any Multi-Drug Resistant Organisms: None Reported Past Surgical History: Heart Catheterization With Stent Additional Past Surgical History / Comment(s): PT HAD STENT TO DISTAL RCA IN DECEMBER 2014, carpal tunnel bilateral hands, Past Anesthesia/Blood Transfusion Reactions: Family History of Problems w/ Anesthesia, Motion Sickness Additional Past Anesthesia/Blood Transfusion Reaction / Comment(s): states mother had difficulty coming out of anesthesia Date of Last Stent Placement:: 12/30 Past Psychological History: Anxiety Additional Psychological History / Comment(s): Pt states she lives in her home with her adult neice and nephew. She is independent. She uses no assistive device. She drives. Smoking Status: Never smoker Past Alcohol Use History: None Reported Past Drug Use History: None Reported - Past Family History Brother(s) Family Medical History: Cancer Sister(s) Family Medical History: Diabetes Mellitus, Hypertension, Myocardial Infarction (MD), Vascular Disorder Additional Family Medical History / Comment(s): post procedure of five stents Mother Family Medical History: CVA/TIA, Diabetes Mellitus, Myocardial Infarction (MD) Additional Family Medical History / Comment(s): TIA's, PVD. Mother at age 65yrs. Father Family Medical History: Dementia, Diabetes Mellitus, Hypertension Additional Family Medical History / Comment(s): Father at age 72 yrs. Medications and Allergies Home Medications Medication Instructions Recorded Confirmed Type Loratadine [Claritin] 10 mg PO DAILY 01/05/15 09/19/21 History Aspirin 81 mg PO DAILY 04/16/15 09/19/21 History hydrALAZINE HCL [Apresoline] 75 mg PO BID 08/15/17 09/19/21 History Ferrous Sulfate [Iron (65 MG 325 mg PO DAILY 04/15/18 09/19/21 History Elemental)] Ergocalciferol [Vitamin D2 1,250 mcg PO FR 11/28/18 09/19/21 History (DRISDOL)] Isosorbide Mononitrate ER [Imdur] 60 mg PO DAILY 12/09/18 09/19/21 History Atorvastatin [Lipitor] 80 mg PO HS 07/22/19 09/19/21 History Diltiazem Oral [Cardizem*] 60 mg PO BID 07/22/19 09/19/21 History Metoprolol Tartrate [Lopressor] 75 mg PO BID 07/22/19 09/19/21 History Torsemide [Demadex] 40 mg PO BID 07/22/19 09/19/21 History Famotidine [Pepcid] 20 mg PO DAILY 30 Days #30 tab 07/25/19 09/19/21 Rx Allopurinol [Zyloprim] 200 mg PO AC-SUPPER 03/30/21 09/19/21 History calcitrioL [Calcitriol] 0.25 mcg PO MOTH 03/30/21 09/19/21 History metOLazone [Zaroxolyn] 5 mg PO SUWE 03/30/21 09/19/21 History Dulaglutide [Trulicity] 0.75 mg SQ FR 09/19/21 09/19/21 History Insulin Lispro Protamin/Lispro 60 units SQ BID 09/19/21 09/19/21 History [humaLOG Mix 75-25 Kwikpen] Nitroglycerin Sl Tabs [Nitrostat] 0.4 mg SL Q5M PRN 09/19/21 09/19/21 History Allergies Allergy/AdvReac Type Severity Reaction Status Date / Time ciprofloxacin [From Cipro] Allergy Swelling Verified 09/19/21 13:44 ciprofloxacin HCl Allergy Swelling Verified 09/19/21 13:44 [From Cipro] codeine Allergy Unknown Verified 09/19/21 13:44 latex Allergy Itching Verified 09/19/21 13:44 adhesive tape AdvReac Itching Verified 09/19/21 13:44 cephalexin monohydrate AdvReac Rash/Hives Verified 09/19/21 13:44 [From Keflex] sulfamethoxazole AdvReac Itching Verified 09/19/21 13:44 [From Bactrim] trimethoprim [From Bactrim] AdvReac Itching Verified 09/19/21 13:44 Physical Exam Osteopathic Statement: *. No significant issues noted on an osteopathic structural exam other than those noted in the History and Physical/Consult. Vitals: Vital Signs Temp Pulse Pulse Resp BP BP Pulse Ox 09/20/21 15:57 99 F 18 121/56 96 09/20/21 12:19 97.7 F 76 20 120/60 90 L 09/20/21 08:00 98.4 F 72 20 157/96 95 09/20/21 05:00 98.6 F 75 24 175/75 97 09/20/21 04:00 98.7 F 70 20 155/67 97 09/20/21 03:00 64 18 165/78 94 L 09/20/21 02:00 78 20 168/79 97 09/20/21 00:25 26 H 09/20/21 00:00 64 22 141/75 97 09/19/21 22:00 64 18 165/78 93 L Intake and Output 09/20/21 09/20/21 09/20/21 06:59 14:59 22:59 Intake Total 240 Balance 240 Intake: Oral 240 Other: Voiding Method Toilet Bedside Commode # Voids 1 # Bowel Movements 0 Weight 128.2 kg 128.2 kg No acute distress, oriented 3.Currently on 2 L nasal cannula. Saturations range from 90-95%. HEENT examination is grossly unremarkable. Neck supple. Full range of motion. No adenopathy thyromegaly or neck vein distention. Cardiovascular examination reveals regular rhythm rate. S1-S2 normal. No S3 or S4. No discernible murmur noted.Heart rate 76 bpm. Heart sounds are distant. Lungs reveal bilateral basilar crackles. Breath sounds equal bilaterally. Scattered mild rhonchi are noted. No wheezes. 2 L saturation is 96%. Abdomen soft bowel sounds are heard. No masses or tenderness. Extremities are intact. No cyanosis clubbing or edema. Skin is without rash or lesion. Neurologic examination is brief but nonfocal. Results - Laboratory Findings CBC and BMP: 09/20/21 07:50 09/20/21 07:50 PT/INR, D-dimer D-Dimer 1.55 mg/L FEU (<0.60) H 09/19/21 19:51 Abnormal lab findings: Abnormal Labs 09/19/21 09/19/21 09/19/21 13:03 13:03 13:03 RBC 2.78 L Hgb 8.6 L Hct 26.0 L RDW 15.6 H Lymphocytes # 0.3 L D-Dimer Sodium 136 L BUN 80 H Creatinine 3.08 H Glucose 172 H POC Glucose (mg/dL) Calcium 8.2 L Iron % Saturation Transferrin Ferritin Troponin I C-Reactive Protein Total Protein 6.2 L Albumin 3.1 L Triglycerides HDL Cholesterol Lipase 445 H Urine Appearance Urine Protein Urine Glucose (UA) Urine Blood Ur Leukocyte Esterase Urine WBC Urine WBC Clumps Urine Bacteria Urine Mucus Coronavirus (PCR) Detected A 09/19/21 09/19/21 09/19/21 13:03 16:16 19:18 RBC Hgb Hct RDW Lymphocytes # D-Dimer Sodium BUN Creatinine Glucose POC Glucose (mg/dL) Calcium Iron % Saturation Transferrin Ferritin Troponin I 0.203 H* 0.198 H* C-Reactive Protein Total Protein Albumin Triglycerides HDL Cholesterol Lipase Urine Appearance Cloudy H Urine Protein 3+ H Urine Glucose (UA) 2+ H Urine Blood Small H Ur Leukocyte Esterase Large H Urine WBC 123 H Urine WBC Clumps Few H Urine Bacteria Rare H Urine Mucus Rare H Coronavirus (PCR) 09/19/21 09/19/21 09/19/21 19:51 19:51 21:45 RBC Hgb Hct RDW Lymphocytes # D-Dimer 1.55 H Sodium BUN Creatinine Glucose POC Glucose (mg/dL) 256 H Calcium Iron % Saturation Transferrin Ferritin 1152.0 H Troponin I C-Reactive Protein 3.6 H Total Protein Albumin Triglycerides HDL Cholesterol Lipase Urine Appearance Urine Protein Urine Glucose (UA) Urine Blood Ur Leukocyte Esterase Urine WBC Urine WBC Clumps Urine Bacteria Urine Mucus Coronavirus (PCR) 09/20/21 09/20/21 09/20/21 05:17 07:50 07:50 RBC 2.68 L Hgb 8.4 L Hct 25.0 L RDW Lymphocytes # 0.4 L D-Dimer Sodium 135 L BUN 76 H Creatinine 3.29 H Glucose 111 H POC Glucose (mg/dL) 124 H Calcium 7.9 L Iron % Saturation Transferrin Ferritin Troponin I C-Reactive Protein Total Protein 6.0 L Albumin 2.9 L Triglycerides 199.00 H HDL Cholesterol 26.30 L Lipase 461 H Urine Appearance Urine Protein Urine Glucose (UA) Urine Blood Ur Leukocyte Esterase Urine WBC Urine WBC Clumps Urine Bacteria Urine Mucus Coronavirus (PCR) 09/20/21 09/20/21 09/20/21 07:50 07:50 12:05 RBC Hgb Hct RDW Lymphocytes # D-Dimer Sodium BUN Creatinine Glucose POC Glucose (mg/dL) 136 H Calcium Iron 19 L % Saturation 8.30 L Transferrin 166.0 L Ferritin Troponin I 0.183 H* C-Reactive Protein Total Protein Albumin Triglycerides HDL Cholesterol Lipase Urine Appearance Urine Protein Urine Glucose (UA) Urine Blood Ur Leukocyte Esterase Urine WBC Urine WBC Clumps Urine Bacteria Urine Mucus Coronavirus (PCR) - Diagnostic Findings Chest x-ray: image reviewed Assessment and Plan Assessment: Shortness of breath, likely multifactorial, in part related to mild/moderate CHF, as well as possible coronavirus associated pneumonia. Monoclonal antibody administration on 09/19/2021. Rule out urinary tract infection. History of CHF. History of hyperlipidemia. History of hypertension. History of diabetes with diabetic ulcers and neuropathy. Chronic kidney disease. History of previous myocardial infarction. CAD with previous stent placement. Plan: Plan dated 09/20/2021. The patient is currently on Lasix, as well as the rest of her cardiac medications. It appears that the primary process is more heart failure than coronavirus associated pneumonia. She just may have coronavirus infection, incidentally. We'll continue to follow make recommendations where appropriate. Prognosis is guarded. Time with Patient: Greater than 30
--- NOTE | 2021-09-20 17:38 | NM ---
EXAMINATION TYPE: NM pul perfusion DATE OF EXAM: 09/20/2021 COMPARISON: 09/30/2017 HISTORY: Short of breath Following administration of 5.0 mCi Tc 99m MAA. Images obtained post injection. FINDINGS: There is small peripheral subsegmental perfusion defects in the left upper lobe and right middle lobe . There is no segmental sized defect. Chest x-ray yesterday shows an enlarged heart with some pulmona ry congestion. IMPRESSION: There is a low probability of pulmonary embolism. No adverse change compared to old exam.
[2021-09-20] MEDS: allopurinoL 100 MG TAB PO SCH (17:39)
[2021-09-20 20:20] LABS: Glucose,Whole Blood 267 mg/dL (75-99)
[2021-09-20] MEDS: ATORVASTATIN 80 MG TAB PO SCH (20:38)
[2021-09-21] MEDS ORDERED: ONDANSETRON 4 MG/2 ML VIAL IVP PRN (04:49)
[2021-09-21] MEDS: PANTOPRAZOLE 40 MG TABLET PO SCH (06:11)
[2021-09-21 07:43] LABS: Basophils % (A) 0 %; Eosinophils % (A) 1 %; HCT 24.9 % (34.0-46.0); Hypochromasia Slight; Lymphocytes # (A) 0.3 k/uL (1.0-4.8); Lymphocytes % (A) 9 %; MCHC 32.2 g/dL (31.0-37.0); MCV 96.3 fL (80.0-100.0); Mean Platelet Volume 7.3; Monocytes # (A) 0.2 k/uL (0-1.0); Monocytes % (A) 5 %; Neutrophils # (A) 3.1 k/uL (1.3-7.7); Neutrophils % (A) 83 %; Platelet Count 259 k/uL (150-450); RBC 2.58 m/uL (3.80-5.40); RDW 15.6 % (11.5-15.5); WBC 3.8 k/uL (3.8-10.6)
[2021-09-21 07:50] LABS: Calcium 7.9 mg/dL (8.4-10.2); Magnesium 1.8 mg/dL (1.6-2.3); Total Bilirubin 0.5 mg/dL (0.2-1.3); Total Protein 6.2 g/dL (6.3-8.2)
[2021-09-21 08:27] LABS: Glucose,Whole Blood 122 mg/dL (75-99)
[2021-09-21] MEDS ORDERED: FUROSEMIDE 10 MG/ML 10 ML VIAL IV SCH (08:30)
[2021-09-21] MEDS: HEPARIN SODIUM,PORCINE/PF 5,000 UNIT/0.5 ML SYRINGE SQ SCH ×2 (08:56→21:16)
[2021-09-21] MEDS: hydrALAZINE HCL 25 MG TAB PO SCH ×2 (08:56→21:16)
[2021-09-21] MEDS: ASPIRIN 81 MG PO SCH (08:56)
[2021-09-21] MEDS: LORATADINE 10 MG TAB PO SCH (08:56)
[2021-09-21] MEDS: DILTIAZEM ORAL 60 MG TAB PO SCH ×2 (08:56→21:16)
[2021-09-21] MEDS: FAMOTIDINE 20 MG TAB PO SCH (08:56)
[2021-09-21] MEDS: FERROUS SULFATE 325 MG TAB PO SCH (08:56)
[2021-09-21] MEDS: METOPROLOL TARTRATE 25 MG TAB PO SCH ×2 (08:56→21:17)
[2021-09-21] MEDS: ISOSORBIDE MONONITRATE ER 60 MG TAB.ER.24H PO SCH (08:56)
--- NOTE | 2021-09-21 08:56 | XR ---
EXAMINATION TYPE: XR chest 1V portable DATE OF EXAM: 09/21/2021 COMPARISON: Chest x-ray 09/19/2021 HISTORY: Pulmonary edema, abnormal chest x-ray TECHNIQUE: Single frontal view of the chest is obtained. FINDINGS: Lung volumes are low. Heart is enlarged. There is prominence and central vascularity and i nterstitium. No evident pneumothorax or pleural effusion. Aorta is dense. There are overlying artifac ts. IMPRESSION: There may be a component of volume overload, interstitial edema
[2021-09-21] MEDS ORDERED: metOLazone 5 MG TAB PO SCH (09:00)
[2021-09-21] MEDS: IOPAMIDOL CONTRAST (ORAL USE) VIAL PO PRN ×2 (09:16→10:08)
[2021-09-21] MEDS: FUROSEMIDE 10 MG/ML 4 ML VIAL IV SCH (09:29)
--- NOTE | 2021-09-21 09:46 | P.PN ---
Subjective Patient is seen in follow-up for acute kidney injury on chronic kidney disease. Renal function worse. Has been voiding but accurate I's and O's not done. Patient states dyspnea is about the same. She is on 2 L nasal cannula. No vomiting or diarrhea. Vital signs are stable. General: On nasal cannula. HEENT: Head exam is unremarkable. LUNGS: Breath sounds decreased. HEART: Rate and Rhythm are regular. ABDOMEN: Soft, no distention. EXTREMITITES: No clubbing, 1+ edema. Objective - Vital Signs Vital signs: Vital Signs Temp 99.1 F 09/21/21 08:00 Pulse 74 09/21/21 08:00 Resp 18 09/21/21 08:00 BP 158/76 09/21/21 08:00 Pulse Ox 95 09/21/21 08:00 Intake & Output 09/20/21 09/21/21 09/21/21 18:59 06:59 18:59 Intake Total 720 Output Total 500 Balance 720 -500 Weight 128.2 kg 129.7 kg Intake: Oral 720 Output: Urine 500 Other: Voiding Method Toilet Toilet Bedside Commode # Voids 1 # Bowel Movements 0 - Labs CBC & Chem 7: 09/21/21 06:30 09/21/21 06:30 Labs: Abnormal Lab Results - Last 24 Hours (Table) 09/20/21 09/20/21 09/20/21 Range/Units 07:50 07:50 07:50 RBC (3.80-5.40) m/uL Hgb (11.4-16.0) gm/dL Hct (34.0-46.0) % RDW (11.5-15.5) % Lymphocytes # (1.0-4.8) k/uL Sodium (137-145) mmol/L BUN (7-17) mg/dL Creatinine (0.52-1.04) mg/dL Glucose (74-99) mg/dL POC Glucose (mg/dL) (75-99) mg/dL Calcium (8.4-10.2) mg/dL Iron 19 L (50-170) ug/dL % Saturation 8.30 L (12.00-45.00) Transferrin 166.0 L (204.0-354.0) mg/dL Troponin I 0.183 H* (0.000-0.034) ng/mL Total Protein (6.3-8.2) g/dL Albumin (3.5-5.0) g/dL Triglycerides 199.00 H (0.00-149.00) mg/dL HDL Cholesterol 26.30 L (40.00-60.00) mg/dL Lipase (23-300) U/L 09/20/21 09/20/21 09/21/21 Range/Units 12:05 20:18 06:30 RBC (3.80-5.40) m/uL Hgb (11.4-16.0) gm/dL Hct (34.0-46.0) % RDW (11.5-15.5) % Lymphocytes # (1.0-4.8) k/uL Sodium 136 L (137-145) mmol/L BUN 82 H (7-17) mg/dL Creatinine 4.01 H (0.52-1.04) mg/dL Glucose 129 H (74-99) mg/dL POC Glucose (mg/dL) 136 H 267 H (75-99) mg/dL Calcium 7.9 L (8.4-10.2) mg/dL Iron (50-170) ug/dL % Saturation (12.00-45.00) Transferrin (204.0-354.0) mg/dL Troponin I (0.000-0.034) ng/mL Total Protein 6.2 L (6.3-8.2) g/dL Albumin 3.0 L (3.5-5.0) g/dL Triglycerides (0.00-149.00) mg/dL HDL Cholesterol (40.00-60.00) mg/dL Lipase 447 H (23-300) U/L 09/21/21 09/21/21 Range/Units 06:30 08:25 RBC 2.58 L (3.80-5.40) m/uL Hgb 8.0 L (11.4-16.0) gm/dL Hct 24.9 L (34.0-46.0) % RDW 15.6 H (11.5-15.5) % Lymphocytes # 0.3 L (1.0-4.8) k/uL Sodium (137-145) mmol/L BUN (7-17) mg/dL Creatinine (0.52-1.04) mg/dL Glucose (74-99) mg/dL POC Glucose (mg/dL) 122 H (75-99) mg/dL Calcium (8.4-10.2) mg/dL Iron (50-170) ug/dL % Saturation (12.00-45.00) Transferrin (204.0-354.0) mg/dL Troponin I (0.000-0.034) ng/mL Total Protein (6.3-8.2) g/dL Albumin (3.5-5.0) g/dL Triglycerides (0.00-149.00) mg/dL HDL Cholesterol (40.00-60.00) mg/dL Lipase (23-300) U/L Assessment and Plan Plan: Assessment: 1. 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 Baseline creatinine in the range of 3-4. GFR near baseline but worse compared to yesterday. 2. Volume overload. 3. Anemia of chronic kidney disease. Iron deficiency noted. 4. COVID-19 infection. 5. Acute on chronic diastolic CHF with mild to moderate mitral regurgitation. 6. Hypertension with chronic kidney disease. 7. Diabetes mellitus. 8. Chronic kidney disease mineral bone disease maintained on calcitriol. Plan: Change IV Lasix to 60 mg twice daily. Low-salt diet. Add IV iron. Continue to monitor renal function and urine output. Avoid nephrotoxins. Check bladder scan to rule out urinary retention.
--- NOTE | 2021-09-21 10:40 | P.PN ---
Subjective Progress Note Date: 09/21/21 CHIEF COMPLAINT: Chest pain HISTORY OF PRESENT ILLNESS: This is a 66-year-old female with a past medical history significant for coronary artery disease with previous stenting to the RCA, hypertension, hyperlipidemia, and diabetes. Patient follows in the office with Dr. Núñez. We have been asked to see the patient in consultation for chest pain. The patient was found to be positive for Covid. She is not vaccinated. The patient apparently was only having chest pain when she was coughing. She was found to be in CHF as well. She has been started on IV lasix. Vital signs are stable. DIAGNOSTICS: EKG reveals sinus mechanism with ST depression in inferior leads. Patient with T wave inversions in inferior leads on previous EKG. Chest xray correlate for CHF exacerbation as there is more prominent cardiac male with suspected moderate central vascular congestion Laboratory data: WBC 4.3. Hemoglobin 8.4. Platelet count 228. Sodium 135. Potassium 4.7. BUN 76. Creatinine 3.29. Troponin 0.203. 0.198. 0.183. Current home cardiac medications include hydralazine 75 mg twice a day, Demadex 40 mg twice a day, metoprolol titrate 25 mg twice a day, Imdur 60 mg daily, Cardizem 60 mg twice a day, Lipitor 80 mg at night, aspirin 81 mg daily 09/21/2021 Patient remains on the cardiac stepdown unit. She has no complaints of chest pain or pressure. She does report nausea. She is scheduled to undergo CT abdomen today. Her lasix has been increased to 60mg BID per nephrology. Creatinine 4.01 today. Echo completed revealing EF 50-55% with mild MR. PHYSICAL EXAM: Thorough physical exam not completed secondary to limited evaluation/examination due to Covid19 ASSESSMENT: Covid 19 Chest pain, likely secondary to above Acute on chronic diastolic congestive heart failure Abnormal troponins, not suggestive of acute coronary syndrome Coronary artery disease with previous PCI of RCA Hypertension Hyperlipidemia Diabetes PLAN: Continue current cardiac medications Continue IV lasix. Dosing per nephrology. Monitor kidney function Daily weights Accurate I&O We will follow on an as needed basis. Please call with questions or concerns. Nurse practitioner note has been reviewed by physician. Signing provider agrees with the documented findings, assessment, and plan of care. Objective - Vital Signs Vital signs: Vital Signs Temp 99.1 F 09/21/21 08:00 Pulse 74 09/21/21 08:00 Resp 18 09/21/21 08:00 BP 158/76 09/21/21 08:00 Pulse Ox 95 09/21/21 08:00 Intake & Output 09/20/21 09/21/21 09/21/21 18:59 06:59 18:59 Intake Total 720 Output Total 500 Balance 720 -500 Weight 128.2 kg 129.7 kg Intake: Oral 720 Output: Urine 500 Other: Voiding Method Toilet Toilet Bedside Commode # Voids 1 # Bowel Movements 0 - Labs CBC & Chem 7: 09/21/21 06:30 09/21/21 06:30 Labs: Abnormal Lab Results - Last 24 Hours (Table) 09/20/21 09/20/21 09/20/21 Range/Units 07:50 07:50 12:05 RBC (3.80-5.40) m/uL Hgb (11.4-16.0) gm/dL Hct (34.0-46.0) % RDW (11.5-15.5) % Lymphocytes # (1.0-4.8) k/uL Sodium (137-145) mmol/L BUN (7-17) mg/dL Creatinine (0.52-1.04) mg/dL Glucose (74-99) mg/dL POC Glucose (mg/dL) 136 H (75-99) mg/dL Calcium (8.4-10.2) mg/dL Iron 19 L (50-170) ug/dL % Saturation 8.30 L (12.00-45.00) Transferrin 166.0 L (204.0-354.0) mg/dL Total Protein (6.3-8.2) g/dL Albumin (3.5-5.0) g/dL Triglycerides 199.00 H (0.00-149.00) mg/dL HDL Cholesterol 26.30 L (40.00-60.00) mg/dL Lipase (23-300) U/L 09/20/21 09/21/21 09/21/21 Range/Units 20:18 06:30 06:30 RBC 2.58 L (3.80-5.40) m/uL Hgb 8.0 L (11.4-16.0) gm/dL Hct 24.9 L (34.0-46.0) % RDW 15.6 H (11.5-15.5) % Lymphocytes # 0.3 L (1.0-4.8) k/uL Sodium 136 L (137-145) mmol/L BUN 82 H (7-17) mg/dL Creatinine 4.01 H (0.52-1.04) mg/dL Glucose 129 H (74-99) mg/dL POC Glucose (mg/dL) 267 H (75-99) mg/dL Calcium 7.9 L (8.4-10.2) mg/dL Iron (50-170) ug/dL % Saturation (12.00-45.00) Transferrin (204.0-354.0) mg/dL Total Protein 6.2 L (6.3-8.2) g/dL Albumin 3.0 L (3.5-5.0) g/dL Triglycerides (0.00-149.00) mg/dL HDL Cholesterol (40.00-60.00) mg/dL Lipase 447 H (23-300) U/L 09/21/21 Range/Units 08:25 RBC (3.80-5.40) m/uL Hgb (11.4-16.0) gm/dL Hct (34.0-46.0) % RDW (11.5-15.5) % Lymphocytes # (1.0-4.8) k/uL Sodium (137-145) mmol/L BUN (7-17) mg/dL Creatinine (0.52-1.04) mg/dL Glucose (74-99) mg/dL POC Glucose (mg/dL) 122 H (75-99) mg/dL Calcium (8.4-10.2) mg/dL Iron (50-170) ug/dL % Saturation (12.00-45.00) Transferrin (204.0-354.0) mg/dL Total Protein (6.3-8.2) g/dL Albumin (3.5-5.0) g/dL Triglycerides (0.00-149.00) mg/dL HDL Cholesterol (40.00-60.00) mg/dL Lipase (23-300) U/L
[2021-09-21] MEDS: SODIUM FERRIC GLUCONAT-SUCROSE 125 MG in SODIUM CHLORIDE 0.9% 100 ML IVPB SCH (11:01)
--- NOTE | 2021-09-21 11:03 | CT ---
EXAMINATION TYPE: CT ChestAbdPelvis wo con DATE OF EXAM: 09/21/2021 INDICATION: Covid, pancreatitis. COMPARISON: 03/30/2021 CT DLP: 3233.8 mGycm CONTRAST: Performed with Oral Contrast. No intravenous contrast is utilized.. TECHNIQUE: Axial images at 5 mm thick sections. Reconstructed images in the coronal plane. Delayed images through the kidneys. FINDINGS: CT CHEST: Portion of the thyroid visualized is normal. Patchy infiltrates are present bilaterally within the periphery and within the dependent portions of the lung bases. Correlate for atypical pneumonia. There is a 1.0 cm pretracheal lymph node. Shotty lymphadenopathy is present. Hilar adenopathy. Diffic ult to exclude on the noncontrast study. The ascending aorta diameter at the level of the main pulmonary artery is 3.6 cm. The main pulmonary artery diameter at the bifurcation is 2.4 cm. Coronary artery calcifications present. There is mild cardiomegaly present. CT ABDOMEN: Liver: Couple of scattered calcified granuloma may be within the liver. Spleen: Multiple calcified granulomata within the spleen. Pancreas: Normal Adrenal glands: The adrenal glands are normal. Gallbladder: Normal Kidneys: No masses are evident. No hydronephrosis is present. No cysts are present. Delayed images were obtained through the kidneys, which remain unremarkable. Aorta: Vascular calcification is within the aorta. Inferior vena cava: Normal. CT PELVIS: There is a 1.3 cm right inguinal lymph node. Smaller lymphadenopathy is the left inguinal region. Loops of bowel within the abdomen and pelvis are normal. There are loops of bowel which are incom pletely distended or lack oral contrast limiting their evaluation. Appendix: Normal as visualized. Urinary bladder: Normal. Genitourinary structures: Uterus is normal. Adnexa are normal. Osseous structures: No suspicious lytic or sclerotic lesions. IMPRESSIONS: 1. Patchy peripheral infiltrates. Correlate for atypical pneumonia. 2. Enlarged mediastinal adenopathy. 3. No suspicious changes to suggest acute pancreatitis by CT criteria.
[2021-09-21] MEDS: INSULN ASP PRT/INSULIN ASPART 100 UNIT/ML 10 ML VIAL SQ SCH ×2 (11:07→21:17)
[2021-09-21 11:51] LABS: Glucose,Whole Blood 160 mg/dL (75-99)
--- NOTE | 2021-09-21 12:38 | P.CONS ---
History of Present Illness - Reason for Consult Consult date: 09/20/21 covid Requesting physician: Aylin Seymour - Chief Complaint shortness of breath x few days - History of Present Illness History of Present Illness : Patient is a 66-year-old female presented to the ER yesterday afternoon for evaluation of nausea and vomiting diarrhea and some upper abdominal achiness this patient symptom is going on for last few days before presentation hospital is also complaining of cough which is mild in intensity not bring up any sputum and some shortness of breath on minimal exertion patient on presentation to the hospital was afebrile no fever had recorded subsequently patient was hypoxic with O2 sats of 91% on room air is currently on 2 L nasal cannula patient did have a normal white count with lymphopenia D-dimer was elevated patient did have elevated BUN and creatinine levels observed normal troponin was elevated urine was mildly positive urine toxin was negative guillaume PCR was positive patient did have a chest x-ray correlate for CHF exacerbation more prominent cardiomegaly with suspected mild central venous congestion patient has been admitted to hospital infectious disease was consulted for further management, patient has received monoclonal antibody infusion in the ER on September 19, 2021, patient did have a VQ scan that was low probability for PE Review of system: CONSTITUTIONAL: Positive for weakness denies high-grade fever. EYES: No complaint. ENT: No complaint. RESPIRATORY: As per history of present illness. CARDIOVASCULAR: As per history of present illness. GENITOURINARY: No complaint. GASTROINTESTINAL: No complaint. MUSCULOSKELETAL: No complaint. INTEGUMENTARY : No complaint. PSYCHOLOGIC: No complaint. ENDOCRINE: No complaint. NEUROLOGIC: No complaint. Past medical history : Reviewed, documented below Past surgical history : Reviewed, documented below Social history: Reviewed, documented below Medications: Reviewed, as documented below EXAMINATION: Vital sigans= Reviewed and documented below GENERAL DESCRIPTION: Elderly female lying in bed, no distress. No tachypnea or accessory muscle of respiration use. HEENT: Shows Pallor , no scleral icterus. Oral mucous membrane is dry. NECK: Trachea central, no thyromegaly. LUNGS: Unlabored breathing. Decreased breath sound at the base HEART: S1, S2, regular rate and rhythm. ABDOMEN: Soft, no tenderness , guarding or rigidity EXTREMITIES: No edema feet SKIN: No rash, no masses palpable. NEUROLOGICAL: The patient is awake, alert, oriented x3, mood and affect normal. LABS AND RADIOLOGY: Reviewed results see below Assessment : Patient presented to hospital with increasing shortness of breath and cough and some chest pain this patient did not have any fever patient did have a normal white count with lymphopenia did have evidence of renal insufficiency with elevated BUN and creatinine and concern for possible CHF exacerbation and likely component of covid19 pneumonia with predominantly cardiomegaly and pulmonary vascular congestion and no fever could be a picture of CHF rather than severe COVID-19 pneumonia 2-positive urine but no urinary symptom possibly asymptomatic bacteriuria Plan: 1-patient to continue with heparin zinc and ascorbic acid 2-droplet isolation respiratory support , check inflammatory markers 3-continue with the current medication We will follow on clinical condition and cultures to further adjust medication if needed Thank you for this consultation we will follow the patient along with you Past Medical History Past Medical History: Blood Disorder, Coronary Artery Disease (CAD), Heart Failure, Diabetes Mellitus, Hyperlipidemia, Hypertension, Myocardial Infarction (MO), Renal Disease Additional Past Medical History / Comment(s): edema, seasonal allergies, Diabetic ulcer-SEES DR ZELAYA FOR WOUND CARE cellulitis both lower legs and ankles anemia, neuropathy, CKD Last Myocardial Infarction Date:: 01/10/15 History of Any Multi-Drug Resistant Organisms: None Reported Past Surgical History: Heart Catheterization With Stent Additional Past Surgical History / Comment(s): PT HAD STENT TO DISTAL RCA IN DECEMBER 2014, carpal tunnel bilateral hands, Past Anesthesia/Blood Transfusion Reactions: Family History of Problems w/ Anesthesia, Motion Sickness Additional Past Anesthesia/Blood Transfusion Reaction / Comm: states mother had difficulty coming out of anesthesia Date of Last Stent Placement:: 12/30 Past Psychological History: Anxiety Additional Psychological History / Comment(s): Pt states she lives in her home with her adult neice and nephew. She is independent. She uses no assistive device. She drives. Smoking Status: Never smoker Past Alcohol Use History: None Reported Past Drug Use History: None Reported - Past Family History Brother(s) Family Medical History: Cancer Sister(s) Family Medical History: Diabetes Mellitus, Hypertension, Myocardial Infarction (MO), Vascular Disorder Additional Family Medical History / Comment(s): post procedure of five stents Mother Family Medical History: CVA/TIA, Diabetes Mellitus, Myocardial Infarction (MO) Additional Family Medical History / Comment(s): TIA's, PVD. Mother at age 65yrs. Father Family Medical History: Dementia, Diabetes Mellitus, Hypertension Additional Family Medical History / Comment(s): Father at age 72 yrs. Medications and Allergies Home Medications Medication Instructions Recorded Confirmed Type Loratadine [Claritin] 10 mg PO DAILY 01/05/15 09/19/21 History Aspirin 81 mg PO DAILY 04/16/15 09/19/21 History hydrALAZINE HCL [Apresoline] 75 mg PO BID 08/15/17 09/19/21 History Ferrous Sulfate [Iron (65 MG 325 mg PO DAILY 04/15/18 09/19/21 History Elemental)] Ergocalciferol [Vitamin D2 1,250 mcg PO FR 11/28/18 09/19/21 History (DRISDOL)] Isosorbide Mononitrate ER [Imdur] 60 mg PO DAILY 12/09/18 09/19/21 History Atorvastatin [Lipitor] 80 mg PO HS 07/22/19 09/19/21 History Diltiazem Oral [Cardizem*] 60 mg PO BID 07/22/19 09/19/21 History Metoprolol Tartrate [Lopressor] 75 mg PO BID 07/22/19 09/19/21 History Torsemide [Demadex] 40 mg PO BID 07/22/19 09/19/21 History Famotidine [Pepcid] 20 mg PO DAILY 30 Days #30 tab 07/25/19 09/19/21 Rx Allopurinol [Zyloprim] 200 mg PO AC-SUPPER 03/30/21 09/19/21 History calcitrioL [Calcitriol] 0.25 mcg PO MOTH 03/30/21 09/19/21 History metOLazone [Zaroxolyn] 5 mg PO SUWE 03/30/21 09/19/21 History Dulaglutide [Trulicity] 0.75 mg SQ FR 09/19/21 09/19/21 History Insulin Lispro Protamin/Lispro 60 units SQ BID 09/19/21 09/19/21 History [humaLOG Mix 75-25 Kwikpen] Nitroglycerin Sl Tabs [Nitrostat] 0.4 mg SL Q5M PRN 09/19/21 09/19/21 History Allergies Allergy/AdvReac Type Severity Reaction Status Date / Time ciprofloxacin [From Cipro] Allergy Swelling Verified 09/19/21 13:44 ciprofloxacin HCl Allergy Swelling Verified 09/19/21 13:44 [From Cipro] codeine Allergy Unknown Verified 09/19/21 13:44 latex Allergy Itching Verified 09/19/21 13:44 adhesive tape AdvReac Itching Verified 09/19/21 13:44 cephalexin monohydrate AdvReac Rash/Hives Verified 09/19/21 13:44 [From Keflex] sulfamethoxazole AdvReac Itching Verified 09/19/21 13:44 [From Bactrim] trimethoprim [From Bactrim] AdvReac Itching Verified 09/19/21 13:44 Physical Exam Vitals: Vital Signs Temp Pulse Pulse Resp BP BP Pulse Ox 09/20/21 08:00 98.4 F 72 20 157/96 95 09/20/21 05:00 98.6 F 75 24 175/75 97 09/20/21 04:00 98.7 F 70 20 155/67 97 09/20/21 03:00 64 18 165/78 94 L 09/20/21 02:00 78 20 168/79 97 09/20/21 00:25 26 H 09/20/21 00:00 64 22 141/75 97 09/19/21 22:00 64 18 165/78 93 L 09/19/21 17:11 82 18 160/68 93 L 09/19/21 15:00 75 18 170/77 93 L 09/19/21 13:50 72 16 171/67 93 L 09/19/21 13:06 97.8 F 09/19/21 12:32 155/65 09/19/21 12:28 67 18 91 L Intake and Output 09/19/21 09/20/21 09/20/21 22:59 06:59 14:59 Other: Voiding Method Toilet Bedside Commode # Voids 1 Weight 128.2 kg 128.2 kg Results CBC & Chem 7: 09/21/21 06:30 09/21/21 06:30 Labs: Abnormal Lab Results - Last 24 Hours (Table) 09/19/21 09/19/21 09/19/21 Range/Units 13:03 13:03 13:03 RBC 2.78 L (3.80-5.40) m/uL Hgb 8.6 L (11.4-16.0) gm/dL Hct 26.0 L (34.0-46.0) % RDW 15.6 H (11.5-15.5) % Lymphocytes # 0.3 L (1.0-4.8) k/uL D-Dimer (<0.60) mg/L FEU Sodium 136 L (137-145) mmol/L BUN 80 H (7-17) mg/dL Creatinine 3.08 H (0.52-1.04) mg/dL Glucose 172 H (74-99) mg/dL POC Glucose (mg/dL) (75-99) mg/dL Calcium 8.2 L (8.4-10.2) mg/dL Ferritin (10.0-291.0) ng/mL Troponin I (0.000-0.034) ng/mL C-Reactive Protein (<1.0) mg/dL Total Protein 6.2 L (6.3-8.2) g/dL Albumin 3.1 L (3.5-5.0) g/dL Lipase 445 H (23-300) U/L Urine Appearance (Clear) Urine Protein (Negative) Urine Glucose (UA) (Negative) Urine Blood (Negative) Ur Leukocyte Esterase (Negative) Urine WBC (0-5) /hpf Urine WBC Clumps (None) /hpf Urine Bacteria (None) /hpf Urine Mucus (None) /hpf Coronavirus (PCR) Detected A (Not Detectd) 09/19/21 09/19/21 09/19/21 Range/Units 13:03 16:16 19:18 RBC (3.80-5.40) m/uL Hgb (11.4-16.0) gm/dL Hct (34.0-46.0) % RDW (11.5-15.5) % Lymphocytes # (1.0-4.8) k/uL D-Dimer (<0.60) mg/L FEU Sodium (137-145) mmol/L BUN (7-17) mg/dL Creatinine (0.52-1.04) mg/dL Glucose (74-99) mg/dL POC Glucose (mg/dL) (75-99) mg/dL Calcium (8.4-10.2) mg/dL Ferritin (10.0-291.0) ng/mL Troponin I 0.203 H* 0.198 H* (0.000-0.034) ng/mL C-Reactive Protein (<1.0) mg/dL Total Protein (6.3-8.2) g/dL Albumin (3.5-5.0) g/dL Lipase (23-300) U/L Urine Appearance Cloudy H (Clear) Urine Protein 3+ H (Negative) Urine Glucose (UA) 2+ H (Negative) Urine Blood Small H (Negative) Ur Leukocyte Esterase Large H (Negative) Urine WBC 123 H (0-5) /hpf Urine WBC Clumps Few H (None) /hpf Urine Bacteria Rare H (None) /hpf Urine Mucus Rare H (None) /hpf Coronavirus (PCR) (Not Detectd) 09/19/21 09/19/21 09/19/21 Range/Units 19:51 19:51 21:45 RBC (3.80-5.40) m/uL Hgb (11.4-16.0) gm/dL Hct (34.0-46.0) % RDW (11.5-15.5) % Lymphocytes # (1.0-4.8) k/uL D-Dimer 1.55 H (<0.60) mg/L FEU Sodium (137-145) mmol/L BUN (7-17) mg/dL Creatinine (0.52-1.04) mg/dL Glucose (74-99) mg/dL POC Glucose (mg/dL) 256 H (75-99) mg/dL Calcium (8.4-10.2) mg/dL Ferritin 1152.0 H (10.0-291.0) ng/mL Troponin I (0.000-0.034) ng/mL C-Reactive Protein 3.6 H (<1.0) mg/dL Total Protein (6.3-8.2) g/dL Albumin (3.5-5.0) g/dL Lipase (23-300) U/L Urine Appearance (Clear) Urine Protein (Negative) Urine Glucose (UA) (Negative) Urine Blood (Negative) Ur Leukocyte Esterase (Negative) Urine WBC (0-5) /hpf Urine WBC Clumps (None) /hpf Urine Bacteria (None) /hpf Urine Mucus (None) /hpf Coronavirus (PCR) (Not Detectd) 09/20/21 09/20/21 09/20/21 Range/Units 05:17 07:50 07:50 RBC 2.68 L (3.80-5.40) m/uL Hgb 8.4 L (11.4-16.0) gm/dL Hct 25.0 L (34.0-46.0) % RDW (11.5-15.5) % Lymphocytes # 0.4 L (1.0-4.8) k/uL D-Dimer (<0.60) mg/L FEU Sodium 135 L (137-145) mmol/L BUN 76 H (7-17) mg/dL Creatinine 3.29 H (0.52-1.04) mg/dL Glucose 111 H (74-99) mg/dL POC Glucose (mg/dL) 124 H (75-99) mg/dL Calcium 7.9 L (8.4-10.2) mg/dL Ferritin (10.0-291.0) ng/mL Troponin I (0.000-0.034) ng/mL C-Reactive Protein (<1.0) mg/dL Total Protein 6.0 L (6.3-8.2) g/dL Albumin 2.9 L (3.5-5.0) g/dL Lipase 461 H (23-300) U/L Urine Appearance (Clear) Urine Protein (Negative) Urine Glucose (UA) (Negative) Urine Blood (Negative) Ur Leukocyte Esterase (Negative) Urine WBC (0-5) /hpf Urine WBC Clumps (None) /hpf Urine Bacteria (None) /hpf Urine Mucus (None) /hpf Coronavirus (PCR) (Not Detectd) 09/20/21 Range/Units 07:50 RBC (3.80-5.40) m/uL Hgb (11.4-16.0) gm/dL Hct (34.0-46.0) % RDW (11.5-15.5) % Lymphocytes # (1.0-4.8) k/uL D-Dimer (<0.60) mg/L FEU Sodium (137-145) mmol/L BUN (7-17) mg/dL Creatinine (0.52-1.04) mg/dL Glucose (74-99) mg/dL POC Glucose (mg/dL) (75-99) mg/dL Calcium (8.4-10.2) mg/dL Ferritin (10.0-291.0) ng/mL Troponin I 0.183 H* (0.000-0.034) ng/mL C-Reactive Protein (<1.0) mg/dL Total Protein (6.3-8.2) g/dL Albumin (3.5-5.0) g/dL Lipase (23-300) U/L Urine Appearance (Clear) Urine Protein (Negative) Urine Glucose (UA) (Negative) Urine Blood (Negative) Ur Leukocyte Esterase (Negative) Urine WBC (0-5) /hpf Urine WBC Clumps (None) /hpf Urine Bacteria (None) /hpf Urine Mucus (None) /hpf Coronavirus (PCR) (Not Detectd)
[2021-09-21] MEDS: DEXAMETHASONE SOD PHOSPHATE 10 MG/ML 1 ML VIAL IVP SCH (16:33)
[2021-09-21] MEDS: allopurinoL 100 MG TAB PO SCH (16:33)
[2021-09-21] MEDS: AMPICILLIN-SULBACTAM 3 GM in SODIUM CHLORIDE 0.9% 100 ML IVPB SCH (16:33)
[2021-09-21 16:42] LABS: Glucose,Whole Blood 241 mg/dL (75-99)
[2021-09-21] MEDS: INSULIN ASPART (NovoLOG) 100 UNIT/ML VIAL SQ SCH ×2 (16:54→21:16)
--- NOTE | 2021-09-21 16:59 | PN ---
PROGRESS NOTE DATE OF SERVICE: 09/21/2021 This 66-year-old woman was admitted with multiple medical problems, including chest pain, the patient was found to have Covid 19, bilateral interstitial pneumonia. Patient was being closely monitored at this time. Multiple consultants are following the patient closely. The patient also had renal failure with creatinine of 4.01. Amylase and lipase also elevated indicating some amount of pancreatitis. Chest, abdomen and pelvis CAT scan was also done which showed patchy infiltrates suggestive of Covid 19 pneumonia. Large mediastinal adenopathy and no suspicious changes suggestive of acute pancreatitis. was noted. Patient admitted to the hospital for further evaluation and treatment. There is no history of fever, rigors or chills at this time. PAST MEDICAL HISTORY: Reviewed. REVIEW OF SYSTEMS: Cardiovascular system: No angina. Respirations as mentioned earlier. GI As mentioned earlier. : No dysuria. Nervous system: No numbness or weakness. CURRENT MEDICATIONS: Zyloprim, Xanax, aspirin, Lipitor, Rocaltrol, Cardizem. Allergies noted. PHYSICAL EXAMINATION: Patient is alert and oriented times three. Pulse 67, blood pressure 133/74, respirations 19, temperature 97.7, pulse ox 92% on 2 L. HEENT: Conjunctivae normal. Neck is no JVD. Cardiovascular: S1, S2 muffled. Respiratory: Breath sounds diminished in the bases. A few scattered rhonchi. Abdomen: Soft, nontender. Legs are no edema. No swelling. Nervous system: No focal deficits. LABS: WBC 3.8, hemoglobin 7, sodium 136, creatinine 4.01. ASSESSMENT: 1. Acute COVID-19 infection with gastrointestinal symptoms with nausea and vomiting possible acute gastritis with acute bilateral interstitial pneumonia. 2. Acute pancreatitis, possibly secondary to Covid 19. 3. Acute on chronic renal failure with acute tubular necrosis secondary to prerenal factors and chronic kidney disease stage 3 baseline. 4. Hyponatremia. 5. Anemia, normocytic anemia of chronic disease. 6. Troponin 0.203. Rule out acute non-ST elevation myocardial infarction also secondary to Covid 19. 7. Diabetes mellitus, type 2. 8. Congestive heart failure and history of coronary artery disease. 9. Normal ejection fraction 50% to 55%. on recent 2D echo. 10.Hyperlipidemia. 11.Elevated D-dimer. 12.Hypertension. 13.History of myocardial infarction. 14.History of seasonal allergies. 15.History of diabetic ulcer. 16.History of coronary artery disease, stent. 17.History of anxiety. 18.Obesity with body mass index of 43.6. 19.Acute urinary tract infection with sepsis. 20.FULL CODE. RECOMMENDATIONS AND DISCUSSION: Continue current medications, management and symptomatic treatment. Otherwise, at this time, I would recommend close monitoring and continue the rest of medications. Closely follow. Repeat labs including amylase, lipase. Prognosis guarded. Closely follow with Cardiology and pulmonology and discussed with the patient who understands and agrees. Further recommendations to follow. The patient is currently started on heparin and patient is slightly hypoxic as well. The most recent chest x-ray showed some bilateral infiltrates and the CT showed bilateral pulmonary infiltrates as well. I would recommend serum procal also. Guarded prognosis. Would also recommend a course of antibiotics as well. Obtain cultures. DAVID / HELADIO: [id number] / MTDD
--- NOTE | 2021-09-21 17:00 | P.PN ---
Subjective Progress Note Date: 09/21/21 Principal diagnosis: Respiratory failure. Pulmonary consult dated 09/20/2021. This is a 66-year-old female, who presents to the emergency department on September 19, complaining of chest pain, weakness, and shortness of breath. The patient has not been feeling well for 2 or 3 days prior to admission. She's had some nausea and vomiting. No diarrhea. She has some mild upper abdominal cramping. In addition, the patient has been short of breath, and been coughing a bit. The patient has a history of hypertension, diabetes, and previous myocardial infarction. The patient has not been vaccinated against coronavirus. In addition, the patient has a history of heart failure, hyperlipidemia, hypertension, diabetic ulcers, diabetic neuropathy, and chronic kidney disease. She has had a heart catheterization with stent placement. She is a lifelong nonsmoker. White count 4.3, hemoglobin 8.4, hematocrit 25, and platelet count 228,000. Sodium 135, potassium 4.7, chlorides 103, CO2 22, anion gap 10, BUN 76, and creatinine 3.29. Troponin was 0.183. N-terminal proBNP was 3770. Urine has 3+ protein, 2+ glucose, large positive leukocyte esterase, 123 WBCs, and rare bacteria. Testing for coronavirus was positive. Chest x-ray shows evidence of cardiomegaly, and bilateral infiltrates. The patient apparently got monoclonal antibody in the emergency department, on September 19. Progress note dated 09/21/2021. This is a 66-year-old female who was seen yesterday in consultation. My impression was that she had shortness of breath, likely related to underlying CHF, as well as coronavirus associated pneumonia. Currently, the patient is on 2 L nasal cannula. Currently, she's getting an iron infusion. She's not getting any IV fluids. Her breathing feels stable. She does have lots of shortness of breath on exertion. White count 3.8, hemoglobin 8, hematocrit 24.9, platelet count 259,000. Sodium 136, potassium 5, chlorides 103, CO2 23, anion gap 10, BUN 82, and creatinine 4.01. Computed tomography scan of the chest reveals patchy bilateral infiltrates, more peripherally located, and consistent with coronavirus associated pneumonia. Objective - Vital Signs Vital signs: Vital Signs Temp 98.8 F 09/21/21 16:00 Pulse 70 09/21/21 16:00 Resp 18 09/21/21 16:00 BP 136/71 09/21/21 16:00 Pulse Ox 93 L 09/21/21 16:00 Intake & Output 09/20/21 09/21/21 09/21/21 18:59 06:59 18:59 Intake Total 720 700 Output Total 500 1200 Balance 720 -500 -500 Weight 128.2 kg 129.7 kg Intake: Intake, IV Titration 100 Amount Sodium Ferric Gluconat- 100 Sucrose 125 mg In Sodium Chloride 0.9% 100 ml @ 100 mls/hr IVPB DAILY [facility] Rx#:[id number] Oral 720 600 Output: Urine 500 1200 Other: Voiding Method Toilet Toilet Bedside Commode # Voids 1 1 # Bowel Movements 0 - Exam No acute distress, oriented 3.Currently on 2 L nasal cannula. Saturations are 93%.. HEENT examination is grossly unremarkable. Neck supple. Full range of motion. No adenopathy thyromegaly or neck vein distention. Cardiovascular examination reveals regular rhythm rate. S1-S2 normal. No S3 or S4. No discernible murmur noted.Heart rate 70 bpm. Heart sounds are distant. Lungs reveal bilateral basilar crackles. Breath sounds equal bilaterally. Scattered mild rhonchi are noted. No wheezes. 2 L saturation is 93 %. Abdomen soft bowel sounds are heard. No masses or tenderness. Extremities are intact. No cyanosis clubbing or edema. Skin is without rash or lesion. Neurologic examination is brief but nonfocal. - Labs CBC & Chem 7: 09/21/21 06:30 09/21/21 06:30 Labs: Abnormal Lab Results - Last 24 Hours (Table) 09/20/21 09/21/21 09/21/21 Range/Units 20:18 06:30 06:30 RBC 2.58 L (3.80-5.40) m/uL Hgb 8.0 L (11.4-16.0) gm/dL Hct 24.9 L (34.0-46.0) % RDW 15.6 H (11.5-15.5) % Lymphocytes # 0.3 L (1.0-4.8) k/uL Sodium 136 L (137-145) mmol/L BUN 82 H (7-17) mg/dL Creatinine 4.01 H (0.52-1.04) mg/dL Glucose 129 H (74-99) mg/dL POC Glucose (mg/dL) 267 H (75-99) mg/dL Calcium 7.9 L (8.4-10.2) mg/dL Total Protein 6.2 L (6.3-8.2) g/dL Albumin 3.0 L (3.5-5.0) g/dL Lipase 447 H (23-300) U/L 09/21/21 09/21/21 09/21/21 Range/Units 08:25 11:49 16:33 RBC (3.80-5.40) m/uL Hgb (11.4-16.0) gm/dL Hct (34.0-46.0) % RDW (11.5-15.5) % Lymphocytes # (1.0-4.8) k/uL Sodium (137-145) mmol/L BUN (7-17) mg/dL Creatinine (0.52-1.04) mg/dL Glucose (74-99) mg/dL POC Glucose (mg/dL) 122 H 160 H 241 H (75-99) mg/dL Calcium (8.4-10.2) mg/dL Total Protein (6.3-8.2) g/dL Albumin (3.5-5.0) g/dL Lipase (23-300) U/L Assessment and Plan Assessment: Shortness of breath, likely multifactorial, in part related to mild/moderate CHF, as well as possible coronavirus associated pneumonia. Monoclonal antibody administration on 09/19/2021. Rule out urinary tract infection. History of CHF. History of hyperlipidemia. History of hypertension. History of diabetes with diabetic ulcers and neuropathy. Chronic kidney disease. History of previous myocardial infarction. CAD with previous stent placement. Plan: Plan dated 09/20/2021. The patient is currently on Lasix, as well as the rest of her cardiac medications. It appears that the primary process is more heart failure than coronavirus associated pneumonia. She just may have coronavirus infection, incidentally. We'll continue to follow make recommendations where appropriate. Prognosis is guarded. Plan dated 09/21/2021. The patient continues on Unasyn. In addition, the patient is on Decadron, but is not on any vitamins. Vitamin C, vitamin D3, and zinc should be added by the primary service. The patient is currently on heparin 5000 units subcu every 12 hours. Lovenox, 30 mg subcu daily wouldn't be a better option. Additional recommendations and suggestions are forthcoming. We will continue to follow. A pro-calcitonin level will be ordered. If it is normal, and a urinary tract infection is ruled out, antibiotics should be discontinued. Time with Patient: Less than 30
[2021-09-21 20:15] LABS: Glucose,Whole Blood 285 mg/dL (75-99)
[2021-09-21] MEDS: FUROSEMIDE 10 MG/ML 10 ML VIAL IV SCH (21:16)
[2021-09-21] MEDS: ATORVASTATIN 80 MG TAB PO SCH (21:16)
--- NOTE | 2021-09-21 23:02 | PN ---
PROGRESS NOTE DATE OF SERVICE: 09/21/2021 REASON FOR FOLLOWUP: 1. Covid 19 infection. 2. UTI. INTERVAL HISTORY: Patient is afebrile. The patient is breathing more comfortably today down to 2 L nasal cannula. Denies having any chest pain. No worsening cough or sputum production. No abdominal pain. No diarrhea. PHYSICAL EXAMINATION: Blood pressure 163/72 with a pulse of 74, temperature 98. She is 93% on 2 L nasal cannula. General description is an elderly female up in the bed in no distress. Respiratory system: Unlabored breathing, decreased intensity in breath sounds. No wheeze. Heart S1, S2. Regular rate and rhythm. Abdomen soft. No tenderness. LABS: Hemoglobin white count 3.8, creatinine 4.01. DIAGNOSTIC IMPRESSION AND PLAN: 1. Patient admitted to the hospital with acute shortness of breath, more likely congestive heart failure Covid 19 infection, overall improvement to continue. 2. Patient with urinary tract infection, covered with Unasyn waiting for the culture to finalize. MMODL / IJN: [id number] /
[2021-09-22 06:00] LABS: Glucose,Whole Blood 312 mg/dL (75-99)
[2021-09-22] MEDS: PANTOPRAZOLE 40 MG TABLET PO SCH (06:31)
[2021-09-22] MEDS: INSULIN ASPART (NovoLOG) 100 UNIT/ML VIAL SQ SCH ×4 (06:31→20:47)
[2021-09-22] MEDS: DEXAMETHASONE SOD PHOSPHATE 10 MG/ML 1 ML VIAL IVP SCH (08:35)
[2021-09-22] MEDS: AMPICILLIN-SULBACTAM 3 GM in SODIUM CHLORIDE 0.9% 100 ML IVPB SCH ×3 (08:35)
[2021-09-22] MEDS: HEPARIN SODIUM,PORCINE/PF 5,000 UNIT/0.5 ML SYRINGE SQ SCH ×2 (08:36→20:48)
[2021-09-22] MEDS: ASPIRIN 81 MG PO SCH (08:36)
[2021-09-22] MEDS: hydrALAZINE HCL 25 MG TAB PO SCH ×2 (08:36→20:47)
[2021-09-22] MEDS: INSULN ASP PRT/INSULIN ASPART 100 UNIT/ML 10 ML VIAL SQ SCH ×2 (08:36→20:47)
[2021-09-22] MEDS: METOPROLOL TARTRATE 25 MG TAB PO SCH ×2 (08:36→20:47)
[2021-09-22] MEDS: LORATADINE 10 MG TAB PO SCH (08:36)
[2021-09-22] MEDS: ISOSORBIDE MONONITRATE ER 60 MG TAB.ER.24H PO SCH (08:36)
[2021-09-22] MEDS: DILTIAZEM ORAL 60 MG TAB PO SCH ×2 (08:36→20:47)
[2021-09-22] MEDS: FUROSEMIDE 10 MG/ML 10 ML VIAL IV SCH (08:36)
[2021-09-22] MEDS: FAMOTIDINE 20 MG TAB PO SCH (08:36)
[2021-09-22 09:26] LABS: Basophils % (A) 0 %; Eosinophils % (A) 0 %; HCT 23.7 % (34.0-46.0); HGB 7.9 gm/dL (11.4-16.0); Hypochromasia Slight; Lymphocytes # (A) 0.2 k/uL (1.0-4.8); Lymphocytes % (A) 8 %; MCH 31.6 pg (25.0-35.0); MCHC 33.2 g/dL (31.0-37.0); MCV 95.1 fL (80.0-100.0); Mean Platelet Volume 7.6; Monocytes # (A) 0.1 k/uL (0-1.0); Monocytes % (A) 6 %; Neutrophils # (A) 1.8 k/uL (1.3-7.7); Neutrophils % (A) 83 %; Platelet Count 247 k/uL (150-450); RDW 15.4 % (11.5-15.5); WBC 2.2 k/uL (3.8-10.6)
[2021-09-22] MEDS: SODIUM FERRIC GLUCONAT-SUCROSE 125 MG in SODIUM CHLORIDE 0.9% 100 ML IVPB SCH (09:27)
[2021-09-22 09:37] LABS: Albumin 3.1 g/dL (3.5-5.0); Total Protein 6.3 g/dL (6.3-8.2)
[2021-09-22 09:40] LABS: Calcium 7.9 mg/dL (8.4-10.2); Magnesium 1.9 mg/dL (1.6-2.3); Total Bilirubin 0.5 mg/dL (0.2-1.3)
--- NOTE | 2021-09-22 10:16 | P.PN ---
Subjective Patient is seen in follow-up for acute kidney injury on chronic kidney disease. Renal function fairly stable today. Nonoliguric. On IV Lasix. Dyspnea improved. She is on 2 L nasal cannula. No vomiting or diarrhea. Vital signs are stable. General: On nasal cannula. HEENT: Head exam is unremarkable. LUNGS: Breath sounds decreased. HEART: Rate and Rhythm are regular. ABDOMEN: Soft, no distention. EXTREMITITES: No clubbing, 1+ edema. Objective - Vital Signs Vital signs: Vital Signs Temp 97.5 F L 09/22/21 08:00 Pulse 67 09/22/21 08:00 Resp 19 09/22/21 08:00 BP 158/79 09/22/21 08:00 Pulse Ox 93 L 09/22/21 08:00 Intake & Output 09/21/21 09/22/21 09/22/21 18:59 06:59 18:59 Intake Total 700 637 Output Total 1200 1600 Balance -500 -963 Weight 129 kg Intake: Intake, IV Titration 100 100 Amount Ampicillin-Sulbactam 3 gm 100 In Sodium Chloride 0.9% 100 ml @ 200 mls/hr IVPB Q8HR ELISABETH Rx#:[id number] Sodium Ferric Gluconat- 100 Sucrose 125 mg In Sodium Chloride 0.9% 100 ml @ 100 mls/hr IVPB DAILY ELISABETH Rx#:[id number] Oral 600 537 Output: Urine 1200 1600 Other: Voiding Method Toilet Toilet Toilet # Voids 1 - Labs CBC & Chem 7: 09/22/21 08:52 09/22/21 08:52 Labs: Abnormal Lab Results - Last 24 Hours (Table) 09/21/21 09/21/21 09/21/21 Range/Units 06:30 11:49 16:33 WBC (3.8-10.6) k/uL RBC (3.80-5.40) m/uL Hgb (11.4-16.0) gm/dL Hct (34.0-46.0) % Lymphocytes # (1.0-4.8) k/uL D-Dimer (<0.60) mg/L FEU Sodium (137-145) mmol/L BUN (7-17) mg/dL Creatinine (0.52-1.04) mg/dL Glucose (74-99) mg/dL POC Glucose (mg/dL) 160 H 241 H (75-99) mg/dL Calcium (8.4-10.2) mg/dL Lactate Dehydrogenase (313-618) U/L C-Reactive Protein (<1.0) mg/dL Albumin (3.5-5.0) g/dL Procalcitonin 0.21 H (0.02-0.09) ng/mL 09/21/21 09/22/21 09/22/21 Range/Units 20:14 05:58 08:52 WBC (3.8-10.6) k/uL RBC (3.80-5.40) m/uL Hgb (11.4-16.0) gm/dL Hct (34.0-46.0) % Lymphocytes # (1.0-4.8) k/uL D-Dimer (<0.60) mg/L FEU Sodium 134 L (137-145) mmol/L BUN 89 H (7-17) mg/dL Creatinine 4.11 H (0.52-1.04) mg/dL Glucose 271 H (74-99) mg/dL POC Glucose (mg/dL) 285 H 312 H (75-99) mg/dL Calcium 7.9 L (8.4-10.2) mg/dL Lactate Dehydrogenase 714 H (313-618) U/L C-Reactive Protein 5.0 H (<1.0) mg/dL Albumin 3.1 L (3.5-5.0) g/dL Procalcitonin (0.02-0.09) ng/mL 09/22/21 09/22/21 Range/Units 08:52 08:52 WBC 2.2 L (3.8-10.6) k/uL RBC 2.50 L (3.80-5.40) m/uL Hgb 7.9 L (11.4-16.0) gm/dL Hct 23.7 L (34.0-46.0) % Lymphocytes # 0.2 L (1.0-4.8) k/uL D-Dimer 2.33 H (<0.60) mg/L FEU Sodium (137-145) mmol/L BUN (7-17) mg/dL Creatinine (0.52-1.04) mg/dL Glucose (74-99) mg/dL POC Glucose (mg/dL) (75-99) mg/dL Calcium (8.4-10.2) mg/dL Lactate Dehydrogenase (313-618) U/L C-Reactive Protein (<1.0) mg/dL Albumin (3.5-5.0) g/dL Procalcitonin (0.02-0.09) ng/mL Assessment and Plan Plan: Assessment: 1. 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 Baseline creatinine in the range of 3-4. Renal function stable today. No hydronephrosis noted on CAT scan. 2. Volume overload. Improving with diuresis. 3. Anemia of chronic kidney disease. Iron deficiency noted - receiving IV iron. 4. COVID-19 infection. 5. Acute on chronic diastolic CHF with mild to moderate mitral regurgitation. 6. Hypertension with chronic kidney disease. 7. Diabetes mellitus. 8. Chronic kidney disease mineral bone disease maintained on calcitriol. Plan: Stop IV Lasix. Add torsemide 40 mg once daily. Low-salt diet. Continue to monitor renal function and urine output. Avoid nephrotoxins.
--- NOTE | 2021-09-22 10:44 | CDI ---
Documentation Clarification Form Date: 09/22/2021 10:28:34 AM From: Loreta YanezCHACORTA, CCDS Admit Date: 09/19/2021 03:44:00 PM Patient Name: Loreta Beach Visit Number: [id number] Discharge Date: ATTENTION: The Clinical Documentation Specialists (CDI) and [facility] Coding Staff appreciate your assistance in clarifying documentation. Please respond to the clarification below the line at the bottom and electronically sign. The CDI & [facility] Coding staff will review the response and follow-up if needed. Please note: Queries are made part of the Legal Health Record. If you have any questions, please contact the author of this message via ITS. Dr. Aylin Seymour: Acute Pancreatitis, possibly secondary to COVID 19 is documented in the 09/19 History & Physical and the 09/21 Attending Physician Progress Note. Additional clarification regarding the diagnosis of pancreatitis is requested. History/risk factors per the 09/19 H/P: CAD, DE and Coronary stent, CHF, DM II, Hypertension, Hyperlipidemia. Clinical Indicators: Presented to the ED on 09/19 via [facility] with Chest pain and Weakness, Nausea & vomiting, cough & SOB. Admit with Elevated Troponin, Pulmonary Edema, COVID. Per the 09/19 H/P Assessment: Acute COVID 19 infection with gastrointestinal symptoms and nausea, possible Acute Gastritis, Acute pancreatitis. Acute on Chronic Renal Failure with ATN secondary to prerenal factors and CKD 3, Hyponatremia and Normocytic Anemia of Chronic Disease. 09/19 Hgb 8.6, Hct 26.0, Lymph 0.3; D Dimer 1.55; Na 136, BUN 80, Creatinine 3.08, Glucose 172, Calcium, Ferritin 1152.0, Troponin 0.203, 0.198, 0.1.83; CRP 3.6, Total protein 6.2, Albumin, 3.1, Lipase 445. 09/19 UA: Cloudy, 3+ Protein, 2+ Glucose, Small Blood, Large Esterase, WBC 123. 1 CT Abdomen/Pelvis: No suspicious changes to suggest acute pancreatitis by CT. Treatment 09/19: CHF protocol, Insulin sliding scale, Dunaway catheter, IV Zofran, IV Na Cl 1,000 mls @ 999 mls/hr q1H, IV Na Cl 500 mls @ 999 mls/hr q31M, IV Na Cl 50 mls @ 300 mls/hr x1, IV BAM, iv Lasix 40 MG X1, Heparin 5,000 sq q12H. 1/5 IV Ampicillin 100 mls @ 200 mls/hr q8Hr Please clarify the acuity and etiology of the pancreatitis, if known: [ ] Acute pancreatitis [ ] Pancreatitis ruled out [ ] Other, please specify: [ ] Unable to determine (Template Last Revised: November 2020) Acute pancreatitis MTDD
[2021-09-22 11:49] LABS: Glucose,Whole Blood 270 mg/dL (75-99)
[2021-09-22] MEDS: TORSEMIDE 20 MG TAB PO SCH (11:58)
--- NOTE | 2021-09-22 15:23 | P.PN ---
Subjective Progress Note Date: 09/22/21 Principal diagnosis: Respiratory failure. Pulmonary consult dated 09/20/2021. This is a 66-year-old female, who presents to the emergency department on September 19, complaining of chest pain, weakness, and shortness of breath. The patient has not been feeling well for 2 or 3 days prior to admission. She's had some nausea and vomiting. No diarrhea. She has some mild upper abdominal cramping. In addition, the patient has been short of breath, and been coughing a bit. The patient has a history of hypertension, diabetes, and previous myocardial infarction. The patient has not been vaccinated against coronavirus. In addition, the patient has a history of heart failure, hyperlipidemia, hypertension, diabetic ulcers, diabetic neuropathy, and chronic kidney disease. She has had a heart catheterization with stent placement. She is a lifelong nonsmoker. White count 4.3, hemoglobin 8.4, hematocrit 25, and platelet count 228,000. Sodium 135, potassium 4.7, chlorides 103, CO2 22, anion gap 10, BUN 76, and creatinine 3.29. Troponin was 0.183. N-terminal proBNP was 3770. Urine has 3+ protein, 2+ glucose, large positive leukocyte esterase, 123 WBCs, and rare bacteria. Testing for coronavirus was positive. Chest x-ray shows evidence of cardiomegaly, and bilateral infiltrates. The patient apparently got monoclonal antibody in the emergency department, on September 19. Progress note dated 09/21/2021. This is a 66-year-old female who was seen yesterday in consultation. My impression was that she had shortness of breath, likely related to underlying CHF, as well as coronavirus associated pneumonia. Currently, the patient is on 2 L nasal cannula. Currently, she's getting an iron infusion. She's not getting any IV fluids. Her breathing feels stable. She does have lots of shortness of breath on exertion. White count 3.8, hemoglobin 8, hematocrit 24.9, platelet count 259,000. Sodium 136, potassium 5, chlorides 103, CO2 23, anion gap 10, BUN 82, and creatinine 4.01. Computed tomography scan of the chest reveals patchy bilateral infiltrates, more peripherally located, and consistent with coronavirus associated pneumonia. Progress note dated 09/22/2021. 66-year-old female, who is seen a couple days ago consultation. She is doing much better today. She is on 2 L nasal cannula. She is not receiving any IV fluids. The patient was admitted with a diagnosis of shortness of breath, with hypoxemia, likely related to underlying CHF, as well as coronavirus associated pneumonia. Currently laboratory data includes a white count 2.2, hemoglobin 7 .9, hematocrit 23.7, and platelet count 247,000. D-dimer is 2.33. Sodium 134, potassium 5, chlorides 99, CO2 23, anion gap 12, BUN 89, and creatinine 4.11. The patient's LDH was 714, with a C-reactive protein of 5, and a N-terminal proBNP which is 5630. Objective - Vital Signs Vital signs: Vital Signs Temp 98.0 F 09/22/21 12:00 Pulse 57 L 09/22/21 12:00 Resp 16 09/22/21 12:00 BP 134/73 09/22/21 12:00 Pulse Ox 96 09/22/21 12:00 Intake & Output 09/21/21 09/22/21 09/22/21 18:59 06:59 18:59 Intake Total 700 637 Output Total 1200 1600 Balance -500 -963 Weight 129 kg Intake: Intake, IV Titration 100 100 Amount Ampicillin-Sulbactam 3 gm 100 In Sodium Chloride 0.9% 100 ml @ 200 mls/hr IVPB Q8HR ELISABETH Rx#:[id number] Sodium Ferric Gluconat- 100 Sucrose 125 mg In Sodium Chloride 0.9% 100 ml @ 100 mls/hr IVPB DAILY ELISABETH Rx#:[id number] Oral 600 537 Output: Urine 1200 1600 Other: Voiding Method Toilet Toilet Toilet # Voids 1 - Exam No acute distress, oriented 3.Currently on 2 L nasal cannula. Saturations are 96%.. HEENT examination is grossly unremarkable. Neck supple. Full range of motion. No adenopathy thyromegaly or neck vein distention. Cardiovascular examination reveals regular rhythm rate. S1-S2 normal. No S3 or S4. No discernible murmur noted.Heart rate 57 bpm. Heart sounds are distant. Lungs reveal bilateral basilar crackles. Breath sounds equal bilaterally. Scattered mild rhonchi are noted. No wheezes. 2 L saturation is 93 %. Abdomen soft bowel sounds are heard. No masses or tenderness. Extremities are intact. No cyanosis clubbing or edema. Skin is without rash or lesion. Neurologic examination is brief but nonfocal. - Labs CBC & Chem 7: 09/22/21 08:52 09/22/21 08:52 Labs: Abnormal Lab Results - Last 24 Hours (Table) 09/21/21 09/21/21 09/21/21 Range/Units 06:30 16:33 20:14 WBC (3.8-10.6) k/uL RBC (3.80-5.40) m/uL Hgb (11.4-16.0) gm/dL Hct (34.0-46.0) % Lymphocytes # (1.0-4.8) k/uL D-Dimer (<0.60) mg/L FEU Sodium (137-145) mmol/L BUN (7-17) mg/dL Creatinine (0.52-1.04) mg/dL Glucose (74-99) mg/dL POC Glucose (mg/dL) 241 H 285 H (75-99) mg/dL Calcium (8.4-10.2) mg/dL Lactate Dehydrogenase (313-618) U/L C-Reactive Protein (<1.0) mg/dL Albumin (3.5-5.0) g/dL Procalcitonin 0.21 H (0.02-0.09) ng/mL 09/22/21 09/22/21 09/22/21 Range/Units 05:58 08:52 08:52 WBC (3.8-10.6) k/uL RBC (3.80-5.40) m/uL Hgb (11.4-16.0) gm/dL Hct (34.0-46.0) % Lymphocytes # (1.0-4.8) k/uL D-Dimer 2.33 H (<0.60) mg/L FEU Sodium 134 L (137-145) mmol/L BUN 89 H (7-17) mg/dL Creatinine 4.11 H (0.52-1.04) mg/dL Glucose 271 H (74-99) mg/dL POC Glucose (mg/dL) 312 H (75-99) mg/dL Calcium 7.9 L (8.4-10.2) mg/dL Lactate Dehydrogenase 714 H (313-618) U/L C-Reactive Protein 5.0 H (<1.0) mg/dL Albumin 3.1 L (3.5-5.0) g/dL Procalcitonin (0.02-0.09) ng/mL 09/22/21 09/22/21 Range/Units 08:52 11:48 WBC 2.2 L (3.8-10.6) k/uL RBC 2.50 L (3.80-5.40) m/uL Hgb 7.9 L (11.4-16.0) gm/dL Hct 23.7 L (34.0-46.0) % Lymphocytes # 0.2 L (1.0-4.8) k/uL D-Dimer (<0.60) mg/L FEU Sodium (137-145) mmol/L BUN (7-17) mg/dL Creatinine (0.52-1.04) mg/dL Glucose (74-99) mg/dL POC Glucose (mg/dL) 270 H (75-99) mg/dL Calcium (8.4-10.2) mg/dL Lactate Dehydrogenase (313-618) U/L C-Reactive Protein (<1.0) mg/dL Albumin (3.5-5.0) g/dL Procalcitonin (0.02-0.09) ng/mL Assessment and Plan Assessment: Shortness of breath, likely multifactorial, in part related to mild/moderate CHF, as well as possible coronavirus associated pneumonia. Monoclonal antibody administration on 09/19/2021. Rule out urinary tract infection. Morbid obesity, with a BMI of 45.9. History of CHF. History of hyperlipidemia. History of hypertension. History of diabetes with diabetic ulcers and neuropathy. Chronic kidney disease. History of previous myocardial infarction. CAD with previous stent placement. Plan: Plan dated 09/20/2021. The patient is currently on Lasix, as well as the rest of her cardiac medications. It appears that the primary process is more heart failure than coronavirus associated pneumonia. She just may have coronavirus infection, incidentally. We'll continue to follow make recommendations where appropriate. Prognosis is guarded. Plan dated 09/21/2021. The patient continues on Unasyn. In addition, the patient is on Decadron, but is not on any vitamins. Vitamin C, vitamin D3, and zinc should be added by the primary service. The patient is currently on heparin 5000 units subcu every 12 hours. Lovenox, 30 mg subcu daily wouldn't be a better option. Additional rec ommendations and suggestions are forthcoming. We will continue to follow. A pro-calcitonin level will be ordered. If it is normal, and a urinary tract infection is ruled out, antibiotics should be discontinued. Plan dated 09/22/2021. The patient continues on appropriate medications. The patient should be on vitamin C, vitamin D3, and zinc. I mentioned this to the primary service once or twice before. The patient continues on Decadron, 6 mg a day. In addition, the patient's on subcu heparin. A better choice the low molecular weight heparin. Additional recommendations and suggestions are forthcoming. We will continue to follow. A pro-calcitonin level is modestly elevated at 0.21. Culture data is negative. The patient continues on Unasyn as per the primary service. Time with Patient: Less than 30
[2021-09-22 16:50] LABS: Glucose,Whole Blood 404 mg/dL (75-99)
[2021-09-22] MEDS: allopurinoL 100 MG TAB PO SCH (17:01)
--- NOTE | 2021-09-22 19:21 | PN ---
PROGRESS NOTE DATE OF SERVICE: 09/22/2021 This 66-year-old woman who was admitted with acute Covid-19 infection with gastrointestinal symptoms is being closely monitored. The patient also had features of acute pancreatitis. The patient is being closely monitored. The patient's D-dimer was elevated to 2.33 and the most recent amylase and lipase is not available at this time. PAST MEDICAL HISTORY: Reviewed. The procalcitonin was 0.22. The patient has evidence of UTI also. Cultures are not available. REVIEW OF SYSTEMS: Cardiovascular system: No angina. Respiratory system: As mentioned earlier. GI: As mentioned earlier. : No dysuria. Nervous system: No numbness or weakness. CURRENT MEDICATIONS: Reviewed include zyloprim, Xanax, Unasyn, aspirin, Lipitor, Rocaltrol, Cardizem. PHYSICAL EXAMINATION: Patient is alert and oriented x3. Pulse 56, blood pressure 135/60, respiration 18, temperature 97.9, pulse ox 94% on 2 L. HEENT: Conjunctivae normal. Oral mucosa moist. NECK: No jugular venous distention. No lymph node enlargement. CARDIOVASCULAR: S1, S2, muffled. No S3, no S4, RESPIRATORY: Diminished breath sounds at the bases. A few scattered rhonchi. ABDOMEN: Soft, nontender. LEGS: No edema, no swelling. NERVOUS SYSTEM: No focal deficits. LABS: WBC 2.2, hemoglobin 7.9, sodium 135. Other labs are noted. ASSESSMENT: 1. Acute Covid-19 infection with gastrointestinal symptoms with nausea and vomiting, possible acute gastritis and acute bilateral interstitial pneumonia. 2. Acute pancreatitis, possibly secondary to Covid-19. 3. Acute on chronic renal failure with acute tubular necrosis secondary to prerenal factors and chronic kidney stage 3 baseline. 4. Hyponatremia. 5. Anemia, normocytic anemia of chronic disease. 6. Troponin 0.203. Rule out acute [id number] elevation type 2 myocardial infarction or secondary Covid-19. 7. Diabetes mellitus, type 2. 8. Congestive heart failure with a history of coronary artery disease. 9. Normal ejection fraction 50-55% on recent 2D echo. 10.Hyperlipidemia. 11.Elevated D-dimer. 12.Hypertension. 13.History of myocardial infarction. 14.History of seasonal allergies. 15.History of diabetic ulcer. 16.History of CAD/stent. 17.History of anxiety. 18.Obesity with body mass index of 43.6. 19.Acute urinary tract infection with sepsis. 20.FULL CODE. RECOMMENDATIONS: Recommend to continue current management and symptomatic treatment. Otherwise, repeat labs. The cultures are not available at this time. At this time the patient is on IV Unasyn. Continue to monitor along with Nephrology, Infectious Disease and Pulmonology. Guarded prognosis. Further recommendations to follow. Will repeat the labs for tomorrow, the CBC, CMP, amylase, lipase, and cultures. MMODL / IJN: [id number] /
[2021-09-22 19:42] LABS: Glucose,Whole Blood 432 mg/dL (75-99)
[2021-09-22] MEDS: ATORVASTATIN 80 MG TAB PO SCH (20:47)
--- NOTE | 2021-09-23 | PN ---
PROGRESS NOTE DATE OF SERVICE: 09/22/2020 REASON FOR FOLLOWUP: 1. Positive Covid test. 2. UTI. INTERVAL HISTORY: The patient is afebrile. The patient is breathing more comfortably. Patient denies having any chest pain. No worsening cough or sputum production. No abdominal pain. No diarrhea. Mild burning of urine. No frequency or suprapubic or flank pain. PHYSICAL EXAMINATION: Blood pressure 149/73 with a pulse of 64, temperature 97.8. She is 96% on 2 L nasal cannula. General description is an elderly female lying in bed in no distress. Respiratory system: Unlabored breathing, decreased intensity in breath sounds with no wheeze. Heart S1, S2. Regular rate and rhythm. Abdomen soft, no tenderness. LABS: Hemoglobin 7.1, white count 4.2, creatinine is 4.11. DIAGNOSTIC IMPRESSION AND PLAN: 1. Patient with acute respiratory failure, multifactorial, likely congestive heart failure, component of Covid 19 infection clinically responding to the Rocephin that will be continued. 2. Patient with urinary tract infection. Urine cultures requested not done. Patient to continue with Unasyn and we will repeat urine cultures and adjust antibiotic further if needed. MMODL / IJN: [id number] /
[2021-09-23 06:10] LABS: Glucose,Whole Blood 343 mg/dL (75-99)
[2021-09-23] MEDS: INSULIN ASPART (NovoLOG) 100 UNIT/ML VIAL SQ SCH ×4 (06:48→22:01)
[2021-09-23] MEDS: PANTOPRAZOLE 40 MG TABLET PO SCH (06:48)
[2021-09-23 07:08] LABS: Basophils % (A) 0 %; Eosinophils % (A) 0 %; HCT 22.6 % (34.0-46.0); HGB 7.5 gm/dL (11.4-16.0); Lymphocytes # (A) 0.2 k/uL (1.0-4.8); Lymphocytes % (A) 5 %; MCHC 33.1 g/dL (31.0-37.0); MCV 93.7 fL (80.0-100.0); Mean Platelet Volume 8.9; Monocytes # (A) 0.3 k/uL (0-1.0); Monocytes % (A) 5 %; Neutrophils # (A) 4.4 k/uL (1.3-7.7); Neutrophils % (A) 89 %; Platelet Count 221 k/uL (150-450); RBC 2.41 m/uL (3.80-5.40); RDW 14.8 % (11.5-15.5); WBC 4.9 k/uL (3.8-10.6)
[2021-09-23 07:29] LABS: Potassium 4.9 mmol/L (3.5-5.1)
[2021-09-23 07:30] LABS: Albumin 2.8 g/dL (3.5-5.0); Calcium 7.8 mg/dL (8.4-10.2); Total Bilirubin 0.5 mg/dL (0.2-1.3); Total Protein 5.8 g/dL (6.3-8.2)
[2021-09-23] MEDS ORDERED: ERGOCALCIFEROL 1,250 MCG (50,000 IU) CAPSULE PO SCH (09:00)
[2021-09-23] MEDS: DILTIAZEM ORAL 60 MG TAB PO SCH ×2 (09:11→22:03)
[2021-09-23] MEDS: INSULN ASP PRT/INSULIN ASPART 100 UNIT/ML 10 ML VIAL SQ SCH ×2 (09:11→22:02)
[2021-09-23] MEDS: METOPROLOL TARTRATE 25 MG TAB PO SCH ×2 (09:11→22:12)
[2021-09-23] MEDS: ISOSORBIDE MONONITRATE ER 60 MG TAB.ER.24H PO SCH (09:11)
[2021-09-23] MEDS: LORATADINE 10 MG TAB PO SCH (09:11)
[2021-09-23] MEDS: AMPICILLIN-SULBACTAM 3 GM in SODIUM CHLORIDE 0.9% 100 ML IVPB SCH (09:11)
[2021-09-23] MEDS: ASPIRIN 81 MG PO SCH (09:11)
[2021-09-23] MEDS: FAMOTIDINE 20 MG TAB PO SCH (09:11)
[2021-09-23] MEDS: DEXAMETHASONE SOD PHOSPHATE 10 MG/ML 1 ML VIAL IVP SCH (09:11)
[2021-09-23] MEDS: hydrALAZINE HCL 25 MG TAB PO SCH ×2 (09:11→22:02)
[2021-09-23] MEDS: HEPARIN SODIUM,PORCINE/PF 5,000 UNIT/0.5 ML SYRINGE SQ SCH ×2 (09:12→22:03)
[2021-09-23] MEDS: TORSEMIDE 20 MG TAB PO SCH ×2 (09:12→09:35)
[2021-09-23] MEDS: SODIUM FERRIC GLUCONAT-SUCROSE 125 MG in SODIUM CHLORIDE 0.9% 100 ML IVPB SCH (09:14)
--- NOTE | 2021-09-23 10:24 | P.PN ---
Subjective Patient is seen in follow-up for acute kidney injury on chronic kidney disease. Renal function worse. BUN higher as well. Nonoliguric. On oral diuretics. Dyspnea improved. She is on 3 L nasal cannula. No vomiting or diarrhea. Vital signs are stable. General: On nasal cannula. HEENT: Head exam is unremarkable. LUNGS: Breath sounds decreased. HEART: Rate and Rhythm are regular. ABDOMEN: Soft, no distention. EXTREMITITES: No edema. Objective - Vital Signs Vital signs: Vital Signs Temp 97.8 F 09/23/21 03:24 Pulse 60 09/23/21 03:24 Resp 18 09/23/21 03:24 BP 136/79 09/23/21 03:24 Pulse Ox 95 09/23/21 03:24 Intake & Output 09/22/21 09/23/21 09/23/21 18:59 06:59 18:59 Intake Total 240 240 Output Total 750 700 Balance 240 -750 -460 Weight 129 kg Intake: Oral 240 240 Output: Urine 750 700 Other: Voiding Method Toilet Toilet # Voids 1 1 2 - Labs CBC & Chem 7: 09/23/21 06:50 09/23/21 06:50 Labs: Abnormal Lab Results - Last 24 Hours (Table) 09/22/21 09/22/21 09/22/21 Range/Units 08:52 08:52 11:48 RBC (3.80-5.40) m/uL Hgb (11.4-16.0) gm/dL Hct (34.0-46.0) % Lymphocytes # (1.0-4.8) k/uL Sodium (137-145) mmol/L Carbon Dioxide (22-30) mmol/L BUN (7-17) mg/dL Creatinine (0.52-1.04) mg/dL Glucose (74-99) mg/dL POC Glucose (mg/dL) 270 H (75-99) mg/dL Hemoglobin A1c 13.2 H (4.0-6.0) % Calcium (8.4-10.2) mg/dL Ferritin 1449.0 H (10.0-291.0) ng/mL Total Protein (6.3-8.2) g/dL Albumin (3.5-5.0) g/dL Lipase (23-300) U/L 0109/22/21 09/23/21 Range/Units 16:48 19:40 06:09 RBC (3.80-5.40) m/uL Hgb (11.4-16.0) gm/dL Hct (34.0-46.0) % Lymphocytes # (1.0-4.8) k/uL Sodium (137-145) mmol/L Carbon Dioxide (22-30) mmol/L BUN (7-17) mg/dL Creatinine (0.52-1.04) mg/dL Glucose (74-99) mg/dL POC Glucose (mg/dL) 404 H 432 H 343 H (75-99) mg/dL Hemoglobin A1c (4.0-6.0) % Calcium (8.4-10.2) mg/dL Ferritin (10.0-291.0) ng/mL Total Protein (6.3-8.2) g/dL Albumin (3.5-5.0) g/dL Lipase (23-300) U/L 09/23/21 09/23/21 Range/Units 06:50 06:50 RBC 2.41 L (3.80-5.40) m/uL Hgb 7.5 L (11.4-16.0) gm/dL Hct 22.6 L (34.0-46.0) % Lymphocytes # 0.2 L (1.0-4.8) k/uL Sodium 130 L (137-145) mmol/L Carbon Dioxide 21 L (22-30) mmol/L BUN 103 H* (7-17) mg/dL Creatinine 4.58 H (0.52-1.04) mg/dL Glucose 289 H (74-99) mg/dL POC Glucose (mg/dL) (75-99) mg/dL Hemoglobin A1c (4.0-6.0) % Calcium 7.8 L (8.4-10.2) mg/dL Ferritin (10.0-291.0) ng/mL Total Protein 5.8 L (6.3-8.2) g/dL Albumin 2.8 L (3.5-5.0) g/dL Lipase 337 H (23-300) U/L Assessment and Plan Plan: Assessment: 1. 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 Baseline creatinine in the range of 3-4. Renal function worsening from diuresis. No hydronephrosis noted on CAT scan. 2. Volume overload. Improved with diuresis. 3. Anemia of chronic kidney disease. Iron deficiency noted - receiving IV iron. 4. COVID-19 infection. 5. Acute on chronic diastolic CHF with mild to moderate mitral regurgitation. 6. Hypertension with chronic kidney disease. Stable. 7. Diabetes mellitus. 8. Chronic kidney disease mineral bone disease maintained on calcitriol. 9. Hyponatremia secondary to chronic kidney disease and hyperglycemia. Plan: Hold diuretics. Low-salt diet. Continue to monitor renal function and urine output. Avoid nephrotoxins. Add Aranesp.
[2021-09-23] MEDS ORDERED: DARBEPOETIN ALFA 40 MCG/0.4 ML SYRINGE SQ SCH (11:00)
[2021-09-23 11:52] LABS: Glucose,Whole Blood 366 mg/dL (75-99)
--- NOTE | 2021-09-23 14:54 | P.PN ---
Subjective Progress Note Date: 09/23/21 Principal diagnosis: Respiratory failure. Pulmonary consult dated 09/20/2021. This is a 66-year-old female, who presents to the emergency department on September 19, complaining of chest pain, weakness, and shortness of breath. The patient has not been feeling well for 2 or 3 days prior to admission. She's had some nausea and vomiting. No diarrhea. She has some mild upper abdominal cramping. In addition, the patient has been short of breath, and been coughing a bit. The patient has a history of hypertension, diabetes, and previous myocardial infarction. The patient has not been vaccinated against coronavirus. In addition, the patient has a history of heart failure, hyperlipidemia, hypertension, diabetic ulcers, diabetic neuropathy, and chronic kidney disease. She has had a heart catheterization with stent placement. She is a lifelong nonsmoker. White count 4.3, hemoglobin 8.4, hematocrit 25, and platelet count 228,000. Sodium 135, potassium 4.7, chlorides 103, CO2 22, anion gap 10, BUN 76, and creatinine 3.29. Troponin was 0.183. N-terminal proBNP was 3770. Urine has 3+ protein, 2+ glucose, large positive leukocyte esterase, 123 WBCs, and rare bacteria. Testing for coronavirus was positive. Chest x-ray shows evidence of cardiomegaly, and bilateral infiltrates. The patient apparently got monoclonal antibody in the emergency department, on September 19. Progress note dated 09/21/2021. This is a 66-year-old female who was seen yesterday in consultation. My impression was that she had shortness of breath, likely related to underlying CHF, as well as coronavirus associated pneumonia. Currently, the patient is on 2 L nasal cannula. Currently, she's getting an iron infusion. She's not getting any IV fluids. Her breathing feels stable. She does have lots of shortness of breath on exertion. White count 3.8, hemoglobin 8, hematocrit 24.9, platelet count 259,000. Sodium 136, potassium 5, chlorides 103, CO2 23, anion gap 10, BUN 82, and creatinine 4.01. Computed tomography scan of the chest reveals patchy bilateral infiltrates, more peripherally located, and consistent with coronavirus associated pneumonia. Progress note dated 09/22/2021. 66-year-old female, who is seen a couple days ago consultation. She is doing much better today. She is on 2 L nasal cannula. She is not receiving any IV fluids. The patient was admitted with a diagnosis of shortness of breath, with hypoxemia, likely related to underlying CHF, as well as coronavirus associated pneumonia. Currently laboratory data includes a white count 2.2, hemoglobin 7 .9, hematocrit 23.7, and platelet count 247,000. D-dimer is 2.33. Sodium 134, potassium 5, chlorides 99, CO2 23, anion gap 12, BUN 89, and creatinine 4.11. The patient's LDH was 714, with a C-reactive protein of 5, and a N-terminal proBNP which is 5630. Progress note dated 09/23/2021. 66-year-old female, who is now been in the hospital for 4 days. She is again seen in room 383. The patient's currently resting comfortably. Patient's on 3 L nasal cannula. The patient is getting saline at 20 mL an hour. She has no particular complaints today. She feels like her breathing is improved. She was admitted with a diagnosis of shortness of breath, with hypoxemia, secondary to CHF, as well as coronavirus associated pneumonia. Currently labs today include a white count 4.9, hemoglobin 7.5, hematocrit 22.6, and platelet count 221,000. Sodium 130, potassium 4.9, chlorides 101, CO2 21, anion gap 8, BUN 103, and creatinine 4.58. Objective - Vital Signs Vital signs: Vital Signs Temp 97.7 F 09/23/21 08:00 Pulse 59 L 09/23/21 12:00 Resp 22 09/23/21 08:00 BP 145/71 09/23/21 12:00 Pulse Ox 93 L 09/23/21 12:00 Intake & Output 09/22/21 09/23/21 09/23/21 18:59 06:59 18:59 Intake Total 240 240 Output Total 750 700 Balance 240 -750 -460 Weight 129 kg Intake: Oral 240 240 Output: Urine 750 700 Other: Voiding Method Toilet Toilet Toilet # Voids 1 1 2 - Exam No acute distress, oriented 3.Currently on 3 L nasal cannula. Saturations are 94%. HEENT examination is grossly unremarkable. Neck supple. Full range of motion. No adenopathy thyromegaly or neck vein distention. Cardiovascular examination reveals regular rhythm rate. S1-S2 normal. No S3 or S4. No discernible murmur noted.Heart rate 63 bpm. Heart sounds are distant. Lungs reveal bilateral basilar crackles. Breath sounds equal bilaterally. Scattered mild rhonchi are noted. No wheezes. 3 L saturation is 94 %. Abdomen soft bowel sounds are heard. No masses or tenderness. Extremities are intact. No cyanosis clubbing or edema. Skin is without rash or lesion. Neurologic examination is brief but nonfocal. - Labs CBC & Chem 7: 09/23/21 06:50 09/23/21 06:50 Labs: Abnormal Lab Results - Last 24 Hours (Table) 09/22/21 09/22/21 09/22/21 Range/Units 08:52 08:52 16:48 RBC (3.80-5.40) m/uL Hgb (11.4-16.0) gm/dL Hct (34.0-46.0) % Lymphocytes # (1.0-4.8) k/uL Sodium (137-145) mmol/L Carbon Dioxide (22-30) mmol/L BUN (7-17) mg/dL Creatinine (0.52-1.04) mg/dL Glucose (74-99) mg/dL POC Glucose (mg/dL) 404 H (75-99) mg/dL Hemoglobin A1c 13.2 H (4.0-6.0) % Calcium (8.4-10.2) mg/dL Ferritin 1449.0 H (10.0-291.0) ng/mL Total Protein (6.3-8.2) g/dL Albumin (3.5-5.0) g/dL Lipase (23-300) U/L 09/22/21 09/23/21 09/23/21 Range/Units 19:40 06:09 06:50 RBC 2.41 L (3.80-5.40) m/uL Hgb 7.5 L (11.4-16.0) gm/dL Hct 22.6 L (34.0-46.0) % Lymphocytes # 0.2 L (1.0-4.8) k/uL Sodium (137-145) mmol/L Carbon Dioxide (22-30) mmol/L BUN (7-17) mg/dL Creatinine (0.52-1.04) mg/dL Glucose (74-99) mg/dL POC Glucose (mg/dL) 432 H 343 H (75-99) mg/dL Hemoglobin A1c (4.0-6.0) % Calcium (8.4-10.2) mg/dL Ferritin (10.0-291.0) ng/mL Total Protein (6.3-8.2) g/dL Albumin (3.5-5.0) g/dL Lipase (23-300) U/L 09/23/21 09/23/21 Range/Units 06:50 11:46 RBC (3.80-5.40) m/uL Hgb (11.4-16.0) gm/dL Hct (34.0-46.0) % Lymphocytes # (1.0-4.8) k/uL Sodium 130 L (137-145) mmol/L Carbon Dioxide 21 L (22-30) mmol/L BUN 103 H* (7-17) mg/dL Creatinine 4.58 H (0.52-1.04) mg/dL Glucose 289 H (74-99) mg/dL POC Glucose (mg/dL) 366 H (75-99) mg/dL Hemoglobin A1c (4.0-6.0) % Calcium 7.8 L (8.4-10.2) mg/dL Ferritin (10.0-291.0) ng/mL Total Protein 5.8 L (6.3-8.2) g/dL Albumin 2.8 L (3.5-5.0) g/dL Lipase 337 H (23-300) U/L Microbiology - Last 24 Hours (Table) 09/23/21 02:29 Urine Culture - Preliminary Urine,Voided Assessment and Plan Assessment: Shortness of breath, likely multifactorial, in part related to mild/moderate CHF, as well as possible coronavirus associated pneumonia. Monoclonal antibody administration on 09/19/2021. Rule out urinary tract infection. Morbid obesity, with a BMI of 45.9. History of CHF. History of hyperlipidemia. History of hypertension. History of diabetes with diabetic ulcers and neuropathy. Chronic kidney disease. History of previous myocardial infarction. CAD with previous stent placement. Plan: Plan dated 09/20/2021. The patient is currently on Lasix, as well as the rest of her cardiac medications. It appears that the primary process is more heart failure than coronavirus associated pneumonia. She just may have coronavirus infection, incidentally. We'll continue to follow make recommendations where appropriate. Prognosis is guarded. Plan dated 09/21/2021. The patient continues on Unasyn. In addition, the patient is on Decadron, but is not on any vitamins. Vitamin C, vitamin D3, and zinc should be added by the primary service. The patient is currently on heparin 5000 units subcu every 12 hours. Lovenox, 30 mg subcu daily wouldn't be a better option. Additional recommendations and suggestions are forthcoming. We will continue to follow. A pro-calcitonin level will be ordered. If it is normal, and a urinary tract infection is ruled out, antibiotics should be discontinued. Plan dated 09/22/2021. The patient continues on appropriate medications. The patient should be on vitamin C, vitamin D3, and zinc. I mentioned this to the primary service once or twice before. The patient continues on Decadron, 6 mg a day. In addition, the patient's on subcu heparin. A better choice the low molecular weight heparin. Additional recommendations and suggestions are forthcoming. We will continue to follow. A pro-calcitonin level is modestly elevated at 0.21. Culture data is negative. The patient continues on Unasyn as per the primary service. Plan dated 09/23/2021. The patient remains on Unasyn, as per the primary service. The patient is also getting Decadron, as well as subcutaneous heparin. The patient should be on vitamin C, vitamin D3, and zinc. For some reason, the primary service has not started it. The patient's pro-calcitonin level is low at 0.21. Culture data is as far negative We will continue to follow make recommendations where appropriate. Prognosis is guarded. Time with Patient: Less than 30
--- NOTE | 2021-09-23 17:10 | PN ---
PROGRESS NOTE DATE OF SERVICE: 09/23/2021 This 66-year-old woman who was admitted with acute COVID-19 infection also had multiple other medical problems, including pancreatitis and acute on chronic renal failure also. She also had anemia. Troponin is also elevated. Multiple consultants are following the patient closely. Chest CTA, pelvis and abdomen was noted. The lipase is mildly elevated at 337. The blood sugar is also elevated up to 404. Creatinine has worsened to 4.58. Past medical history reviewed. REVIEW OF SYSTEMS: CARDIOVASCULAR SYSTEM: No angina. RESPIRATION: As mentioned earlier. GI: As mentioned earlier. : No dysuria. NERVOUS SYSTEM: No numbness, weakness. CURRENT MEDICATIONS: Reviewed. They include zyloprim, Xanax, Unasyn, Lipitor, Rocaltrol, Aranesp. Doses and other medications are reviewed. PHYSICAL EXAMINATION: Patient alert and oriented x3. Pulse 59, blood pressure 145/70, respiration 20, temperature 97.7, pulse ox 93% on 3 L. HEENT: Conjunctivae normal. NECK: No jugular venous distention. CARDIOVASCULAR: S1, S2 muffled. RESPIRATION: Breath sounds diminished at the bases. A few scattered rhonchi and crackles. ABDOMEN: Soft, obese. LEGS: No edema. No swelling. NERVOUS SYSTEM: No focal deficit. LABS: WBC 4.3, hemoglobin .4 sodium 150. Other labs are noted. ASSESSMENT: 1. Acute COVID-19 infection with acute gastrointestinal symptoms, nausea, vomiting; possible acute gastritis with acute bilateral interstitial pneumonia. 2. Acute pancreatitis, possibly secondary to COVID-19. 3. Acute on chronic renal failure with acute tubular necrosis secondary to prerenal factors and chronic kidney disease, stage 3 baseline. 4. Hyponatremia. 5. Anemia, normocytic anemia of chronic disease. 6. Troponin 0.203. Rule out acute [id number]-elevation myocardial infarction and type 2 myocardial infarction secondary to COVID-19. 7. Diabetes mellitus, type 2. 8. Congestive heart failure with a history of coronary artery disease. 9. Normal ejection fraction 50% to 55% on recent 2D echo with chronic diastolic dysfunction. 10.Hyperlipidemia. 11.Elevated D-dimer. 12.Hypertension. 13.History of myocardial infarction. 14.History of seasonal allergies. 15.History of diabetic ulcer. 16.History of coronary artery disease, stent. 17.History of anxiety. 18.Obesity with body mass index 43.6. 19.Acute urinary tract infection with sepsis. 20.FULL CODE. RECOMMENDATIONS AND DISCUSSION: I recommend to continue current medications, continue with the monitoring, symptomatic treatment. The patient has worsening creatinine and the patient still has some hypoxia. Overall prognosis is guarded because of multiple complex medical issues. Closely follow with Nephrology and avoid nephrotoxic medication. Continue with steroids and the usual medications of COVID-19. Guarded prognosis. Further recommendations to follow. Will avoid Lovenox at this time. Empiric antibiotics. Cultures are negative so far. MMODL / IJN: [id number] / MTDD
[2021-09-23 17:20] LABS: Glucose,Whole Blood 371 mg/dL (75-99)
[2021-09-23] MEDS: allopurinoL 100 MG TAB PO SCH (17:26)
--- NOTE | 2021-09-23 20:28 | PN ---
PROGRESS NOTE DATE OF SERVICE: 09/23/2021 REASON FOR FOLLOWUP: 1. UTI. 2. COVID-19 infection. INTERVAL HISTORY: The patient is afebrile. The patient is breathing more comfortably. The patient denies having any chest pain. The patient did have a cough minimal cough; not bringing up any sputum. No abdominal pain or diarrhea. PHYSICAL EXAMINATION: Blood pressure is 113/68 with a pulse of 67, temperature 97.7. She is % on 3 L nasal cannula. General description is an elderly female lying in bed in no distress. Respiratory system: Unlabored breathing, decreased intensity of breath sounds. No wheeze. Heart S1, S2. Regular rate and rhythm. Abdomen soft, no tenderness. LABS: Hemoglobin is 7.5, white count 4.9, creatinine 4.5. DIAGNOSTIC IMPRESSION AND PLAN: 1. Patient with some burning of urine, possibly symptomatic urinary tract infection. Urine culture has been requested. Continue Unasyn. 2. Patient with a positive COVID test, also with a component of fluid overload. Continue current supportive treatment and monitor clinical course closely. MMODL / IJN: [id number] /
[2021-09-23 20:35] LABS: Glucose,Whole Blood 391 mg/dL (75-99)
[2021-09-23] MEDS: ATORVASTATIN 80 MG TAB PO SCH (22:02)
[2021-09-24 06:42] LABS: Glucose,Whole Blood 200 mg/dL (75-99)
[2021-09-24] MEDS: INSULIN ASPART (NovoLOG) 100 UNIT/ML VIAL SQ SCH ×4 (06:43→21:09)
[2021-09-24] MEDS: PANTOPRAZOLE 40 MG TABLET PO SCH (06:43)
--- NOTE | 2021-09-24 07:15 | XR ---
EXAMINATION TYPE: XR chest 1V DATE OF EXAM: 09/24/2021 CLINICAL HISTORY: Difficulty breathing progress study. TECHNIQUE: Single AP portable upright view of the chest is obtained. COMPARISON: Chest x-ray and CT from 3 days earlier FINDINGS: Low lung volumes with bilateral multifocal increased opacities redemonstrated. Stable card iomegaly with atherosclerotic aorta. Some Arely B lines in the periphery are noted. Osseous structur es are intact. IMPRESSION: Cardiomegaly and low lung volumes with bilateral multifocal opacities consistent with cov id-19 infection thought present. No significant change from most recent x-ray
--- NOTE | 2021-09-24 08:33 | P.PN ---
Subjective Patient is seen in follow-up for acute kidney injury on chronic kidney disease. Renal function worse with rising BUN. Diuretics stopped 09/23/2021. Nonoliguric. She is on 4 L nasal cannula. No vomiting or diarrhea. Vital signs are stable. General: On nasal cannula. HEENT: Head exam is unremarkable. LUNGS: Breath sounds decreased. Wheezing present. HEART: Rate and Rhythm are regular. ABDOMEN: Soft, no distention. EXTREMITITES: No edema. Objective - Vital Signs Vital signs: Vital Signs Temp 97.7 F 09/24/21 04:00 Pulse 69 09/24/21 04:00 Resp 20 09/24/21 04:00 BP 125/50 09/24/21 04:00 Pulse Ox 91 L 09/24/21 04:00 Intake & Output 09/23/21 09/24/21 09/24/21 18:59 06:59 18:59 Intake Total 440 Output Total 700 900 Balance -260 -900 Intake: Intake, IV Titration 200 Amount Ampicillin-Sulbactam 3 gm 100 In Sodium Chloride 0.9% 100 ml @ 200 mls/hr IVPB Q24HR [facility] Rx#:[id number] Sodium Ferric Gluconat- 100 Sucrose 125 mg In Sodium Chloride 0.9% 100 ml @ 100 mls/hr IVPB DAILY [facility] Rx#:[id number] Oral 240 Output: Urine 700 900 Other: Voiding Method Toilet Toilet # Voids 2 - Labs CBC & Chem 7: 09/23/21 06:50 09/23/21 06:50 Labs: Abnormal Lab Results - Last 24 Hours (Table) 09/23/21 09/23/21 09/23/21 Range/Units 11:46 17:17 20:32 POC Glucose (mg/dL) 366 H 371 H 391 H (75-99) mg/dL 09/24/21 Range/Units 06:40 POC Glucose (mg/dL) 200 H (75-99) mg/dL Microbiology - Last 24 Hours (Table) 09/22/21 19:07 Blood Culture - Preliminary Blood No Growth after 24 hours 09/23/21 02:29 Urine Culture - Preliminary Urine,Voided Assessment and Plan Plan: Assessment: 1. 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 Baseline creatinine in the range of 3-4. Renal function worsened from diuresis. No hydronephrosis noted on CAT scan. 2. Volume overload. Improved with diuresis. 3. Anemia of chronic kidney disease. Iron deficiency noted - receiving IV iron. On Aranesp. 4. COVID-19 infection. 5. Acute on chronic diastolic CHF with mild to moderate mitral regurgitation. 6. Hypertension with chronic kidney disease. Stable. 7. Diabetes mellitus. 8. Chronic kidney disease mineral bone disease maintained on calcitriol. 9. Hyponatremia secondary to chronic kidney disease and hyperglycemia. Plan: Continue to hold diuretics. No evidence of fluid overload on chest x-ray. Continue to monitor renal function and urine output. Avoid nephrotoxins. Morning labs pending.
[2021-09-24 09:16] LABS: Basophils % (A) 0 %; Eosinophils % (A) 0 %; HCT 24.6 % (34.0-46.0); Lymphocytes # (A) 0.3 k/uL (1.0-4.8); Lymphocytes % (A) 4 %; MCH 30.3 pg (25.0-35.0); MCHC 32.5 g/dL (31.0-37.0); MCV 93.2 fL (80.0-100.0); Mean Platelet Volume 9.2; Monocytes # (A) 0.5 k/uL (0-1.0); Monocytes % (A) 6 %; Neutrophils # (A) 8.5 k/uL (1.3-7.7); Neutrophils % (A) 90 %; Platelet Count 285 k/uL (150-450); RBC 2.64 m/uL (3.80-5.40); RDW 14.7 % (11.5-15.5); WBC 9.5 k/uL (3.8-10.6)
[2021-09-24 09:36] LABS: Calcium 7.8 mg/dL (8.4-10.2); Magnesium 2.1 mg/dL (1.6-2.3); Potassium 4.7 mmol/L (3.5-5.1)
[2021-09-24] MEDS: SODIUM FERRIC GLUCONAT-SUCROSE 125 MG in SODIUM CHLORIDE 0.9% 100 ML IVPB SCH (09:52)
[2021-09-24] MEDS: AMPICILLIN-SULBACTAM 3 GM in SODIUM CHLORIDE 0.9% 100 ML IVPB SCH (09:52)
[2021-09-24] MEDS: DEXAMETHASONE SOD PHOSPHATE 10 MG/ML 1 ML VIAL IVP SCH (09:53)
[2021-09-24] MEDS: METOPROLOL TARTRATE 25 MG TAB PO SCH ×2 (09:53→21:08)
[2021-09-24] MEDS: FAMOTIDINE 20 MG TAB PO SCH (09:53)
[2021-09-24] MEDS: DILTIAZEM ORAL 60 MG TAB PO SCH ×2 (09:53→21:08)
[2021-09-24] MEDS: ISOSORBIDE MONONITRATE ER 60 MG TAB.ER.24H PO SCH (09:53)
[2021-09-24] MEDS: LORATADINE 10 MG TAB PO SCH (09:54)
[2021-09-24] MEDS: hydrALAZINE HCL 25 MG TAB PO SCH ×2 (09:54→21:08)
[2021-09-24] MEDS: ASPIRIN 81 MG PO SCH (09:54)
[2021-09-24] MEDS: HEPARIN SODIUM,PORCINE/PF 5,000 UNIT/0.5 ML SYRINGE SQ SCH ×2 (09:55→21:08)
[2021-09-24] MEDS: INSULN ASP PRT/INSULIN ASPART 100 UNIT/ML 10 ML VIAL SQ SCH ×2 (09:55→21:09)
[2021-09-24 11:38] LABS: Glucose,Whole Blood 303 mg/dL (75-99)
--- NOTE | 2021-09-24 14:12 | P.PN ---
Subjective This is a pleasant 66 years old female with multiple medical problems including diabetes mellitus, hypertension, hyperlipidemia, coronary artery disease and heart failure, she is status post stent placement, chronic kidney disease. Her angle shear set up operator is Dr. Núñez and fish bin tender isDr. Steinberg Presents because of respiratory symptoms secondary to protocol with pneumonia and hypoxic respiratory failure, she is sitting in chair fully awake and chanelle ented but in distress for mild respiratory symptoms and lack of sleep for 2 days stating that her leg is restless as well and she's been going on for a while on and off but started acting up lately over the last 2 days. She still saturating 4 L/m compared to 3 L. Yesterday. She has good appetite and eating well with no diarrhea. However she was complaining of from urinary symptoms per the infectious disease team and recommended Unasyn, urine culture is pending. We added vitamin C, D and zinc daily. Urine culture is pending. Her glucose is uncontrolled and currently on insulin 70/30 at 60 units twice a day, which was increased today to 65 units twice a day. She has 2 episodes of nasal bleed but it is controlled now. Objective - Vital Signs Vital signs: Vital Signs Temp 97.7 F 09/24/21 04:00 Pulse 71 09/24/21 08:00 Resp 16 09/24/21 08:00 BP 163/62 09/24/21 08:00 Pulse Ox 93 L 09/24/21 08:00 Intake & Output 09/23/21 09/24/21 09/24/21 18:59 06:59 18:59 Intake Total 440 180 Output Total 700 900 Balance -260 -900 180 Intake: Intake, IV Titration 200 Amount Ampicillin-Sulbactam 3 gm 100 In Sodium Chloride 0.9% 100 ml @ 200 mls/hr IVPB Q24HR [facility] Rx#:[id number] Sodium Ferric Gluconat- 100 Sucrose 125 mg In Sodium Chloride 0.9% 100 ml @ 100 mls/hr IVPB DAILY [facility] Rx#:[id number] Oral 240 180 Output: Urine 700 900 Other: Voiding Method Toilet Toilet Toilet # Voids 2 - Exam -GENERAL: The patient is alert and oriented x3, not in any acute distress. Well developed, morbidly obese HEENT: Pupils are round and equally reacting to light. EOMI. No scleral icterus. No conjunctival pallor. Normocephalic, atraumatic. No pharyngeal erythema. No thyromegaly. CARDIOVASCULAR: S1 and S2 present. No murmurs, rubs, or gallops. -PULMONARY: Chest is clear to auscultation, no wheezing . Bilateral crackles ABDOMEN: Soft, nontender, nondistended, normoactive bowel sounds. No palpable organomegaly. MUSCULOSKELETAL: No joint swelling or deformity. EXTREMITIES: No cyanosis, clubbing, or pedal edema. NEUROLOGICAL: Gross neurological examination did not reveal any focal deficits. SKIN: No rashes. no petechiae. - Labs CBC & Chem 7: 09/24/21 09:01 09/24/21 09:01 Labs: Abnormal Lab Results - Last 24 Hours (Table) 09/23/21 09/23/21 09/24/21 Range/Units 17:17 20:32 06:40 RBC (3.80-5.40) m/uL Hgb (11.4-16.0) gm/dL Hct (34.0-46.0) % Neutrophils # (1.3-7.7) k/uL Lymphocytes # (1.0-4.8) k/uL Sodium (137-145) mmol/L Carbon Dioxide (22-30) mmol/L BUN (7-17) mg/dL Creatinine (0.52-1.04) mg/dL Glucose (74-99) mg/dL POC Glucose (mg/dL) 371 H 391 H 200 H (75-99) mg/dL Calcium (8.4-10.2) mg/dL 09/24/21 09/24/21 09/24/21 Range/Units 09:01 09:01 11:37 RBC 2.64 L (3.80-5.40) m/uL Hgb 8.0 L (11.4-16.0) gm/dL Hct 24.6 L (34.0-46.0) % Neutrophils # 8.5 H (1.3-7.7) k/uL Lymphocytes # 0.3 L (1.0-4.8) k/uL Sodium 132 L (137-145) mmol/L Carbon Dioxide 20 L (22-30) mmol/L BUN 117 H* (7-17) mg/dL Creatinine 4.29 H (0.52-1.04) mg/dL Glucose 202 H (74-99) mg/dL POC Glucose (mg/dL) 303 H (75-99) mg/dL Calcium 7.8 L (8.4-10.2) mg/dL Microbiology - Last 24 Hours (Table) 09/22/21 19:07 Blood Culture - Preliminary Blood No Growth after 24 hours 09/23/21 02:29 Urine Culture - Preliminary Urine,Voided Assessment and Plan Assessment: Bilateral Covid pneumonia Acute hypoxic respiratory failure Increased inflammatory markers Acute diastolic CHF Urinary tract infection Acute on chronic kidney disease Chronic kidney disease stage III Anemia Elevated troponin, not consistent with cardiac disease per angle shear set up operator Large mediastinal lymphadenopathy, patient informed with recommendation for follow-up as an outpatient and she agrees Plan: c this is a pleasant 66 years old female who presents with bilateral ovid pneumonia, acute kidney injury, and anemia Continue with dexamethasone Continue with vitamin C, vitamin D and zinc Pulmonary consult Nephrology and infectious disease consult Auditing Clerk team Labs and medication were reviewed.. Continue same treatment. Continue with symptomatic treatment. Resume home medication. Monitor lytes and vitals. DVT and GI prophylaxis. Further recommendationsas per clinical course of the patient DVT prophylaxis: Subcutaneous heparin GI Prophylaxis: Ppi PT/OT: Pending Prognosis is guarded
[2021-09-24] MEDS: ASCORBIC ACID 500 MG TAB PO SCH (15:50)
[2021-09-24] MEDS: allopurinoL 100 MG TAB PO SCH (15:51)
[2021-09-24] MEDS: ZINC SULFATE 220 MG CAP PO SCH (15:51)
--- NOTE | 2021-09-24 15:56 | P.PN ---
Subjective Progress Note Date: 09/24/21 Principal diagnosis: Respiratory failure. Pulmonary consult dated 09/20/2021. This is a 66-year-old female, who presents to the emergency department on September 19, complaining of chest pain, weakness, and shortness of breath. The patient has not been feeling well for 2 or 3 days prior to admission. She's had some nausea and vomiting. No diarrhea. She has some mild upper abdominal cramping. In addition, the patient has been short of breath, and been coughing a bit. The patient has a history of hypertension, diabetes, and previous myocardial infarction. The patient has not been vaccinated against coronavirus. In addition, the patient has a history of heart failure, hyperlipidemia, hypertension, diabetic ulcers, diabetic neuropathy, and chronic kidney disease. She has had a heart catheterization with stent placement. She is a lifelong nonsmoker. White count 4.3, hemoglobin 8.4, hematocrit 25, and platelet count 228,000. Sodium 135, potassium 4.7, chlorides 103, CO2 22, anion gap 10, BUN 76, and creatinine 3.29. Troponin was 0.183. N-terminal proBNP was 3770. Urine has 3+ protein, 2+ glucose, large positive leukocyte esterase, 123 WBCs, and rare bacteria. Testing for coronavirus was positive. Chest x-ray shows evidence of cardiomegaly, and bilateral infiltrates. The patient apparently got monoclonal antibody in the emergency department, on September 19. Progress note dated 09/21/2021. This is a 66-year-old female who was seen yesterday in consultation. My impression was that she had shortness of breath, likely related to underlying CHF, as well as coronavirus associated pneumonia. Currently, the patient is on 2 L nasal cannula. Currently, she's getting an iron infusion. She's not getting any IV fluids. Her breathing feels stable. She does have lots of shortness of breath on exertion. White count 3.8, hemoglobin 8, hematocrit 24.9, platelet count 259,000. Sodium 136, potassium 5, chlorides 103, CO2 23, anion gap 10, BUN 82, and creatinine 4.01. Computed tomography scan of the chest reveals patchy bilateral infiltrates, more peripherally located, and consistent with coronavirus associated pneumonia. Progress note dated 09/22/2021. 66-year-old female, who is seen a couple days ago consultation. She is doing much better today. She is on 2 L nasal cannula. She is not receiving any IV fluids. The patient was admitted with a diagnosis of shortness of breath, with hypoxemia, likely related to underlying CHF, as well as coronavirus associated pneumonia. Currently laboratory data includes a white count 2.2, hemoglobin 7 .9, hematocrit 23.7, and platelet count 247,000. D-dimer is 2.33. Sodium 134, potassium 5, chlorides 99, CO2 23, anion gap 12, BUN 89, and creatinine 4.11. The patient's LDH was 714, with a C-reactive protein of 5, and a N-terminal proBNP which is 5630. Progress note dated 09/23/2021. 66-year-old female, who is now been in the hospital for 4 days. She is again seen in room 383. The patient's currently resting comfortably. Patient's on 3 L nasal cannula. The patient is getting saline at 20 mL an hour. She has no particular complaints today. She feels like her breathing is improved. She was admitted with a diagnosis of shortness of breath, with hypoxemia, secondary to CHF, as well as coronavirus associated pneumonia. Currently labs today include a white count 4.9, hemoglobin 7.5, hematocrit 22.6, and platelet count 221,000. Sodium 130, potassium 4.9, chlorides 101, CO2 21, anion gap 8, BUN 103, and creatinine 4.58. Progress note dated 09/24/2021. 66-year-old female who is now been in the hospital for a total of 5 days. She seen again in room 383. The patient is currently on 4 L nasal cannula. She's receiving Unasyn, and IV iron supplementation. The patient is somewhat lethargic today. She is also receiving saline at 20 mL an hour. White count 9.5, hemoglobin 8, hematocrit 24.6, platelet count 285,000. Sodium 132, potassium 4.7, chlorides 101, CO2 20, anion gap 11, BUN 117, and creatinine 4.29. Chest x-ray shows evidence of cardiomegaly, small lung volumes, and diffuse bilateral infiltrates. The chest x-rays essentially unchanged. Objective - Vital Signs Vital signs: Vital Signs Temp 97.7 F 09/24/21 04:00 Pulse 64 09/24/21 12:00 Resp 16 09/24/21 12:00 BP 125/59 09/24/21 12:00 Pulse Ox 93 L 09/24/21 12:00 Intake & Output 09/23/21 09/24/21 09/24/21 18:59 06:59 18:59 Intake Total 440 360 Output Total 700 900 Balance -260 -900 360 Intake: Intake, IV Titration 200 Amount Ampicillin-Sulbactam 3 gm 100 In Sodium Chloride 0.9% 100 ml @ 200 mls/hr IVPB Q24HR [facility] Rx#:[id number] Sodium Ferric Gluconat- 100 Sucrose 125 mg In Sodium Chloride 0.9% 100 ml @ 100 mls/hr IVPB DAILY [facility] Rx#:[id number] Oral 240 360 Output: Urine 700 900 Other: Voiding Method Toilet Toilet Toilet # Voids 2 0 - Exam No acute distress, oriented 3.Currently on 4 L nasal cannula. Saturations are 93%. HEENT examination is grossly unremarkable. Neck supple. Full range of motion. No adenopathy thyromegaly or neck vein distention. Cardiovascular examination reveals regular rhythm rate. S1-S2 normal. No S3 or S4. No discernible murmur noted.Heart rate 64 bpm. Heart sounds are distant. Lungs reveal bilateral basilar crackles. Breath sounds equal bilaterally. Scattered mild rhonchi are noted. No wheezes. 4 L saturation is 93 %. Abdomen soft bowel sounds are heard. No masses or tenderness. Extremities are intact. No cyanosis clubbing or edema. Skin is without rash or lesion. Neurologic examination is brief but nonfocal. - Labs CBC & Chem 7: 09/24/21 09:01 09/24/21 09:01 Labs: Abnormal Lab Results - Last 24 Hours (Table) 09/23/21 09/23/21 09/24/21 Range/Units 17:17 20:32 06:40 RBC (3.80-5.40) m/uL Hgb (11.4-16.0) gm/dL Hct (34.0-46.0) % Neutrophils # (1.3-7.7) k/uL Lymphocytes # (1.0-4.8) k/uL Sodium (137-145) mmol/L Carbon Dioxide (22-30) mmol/L BUN (7-17) mg/dL Creatinine (0.52-1.04) mg/dL Glucose (74-99) mg/dL POC Glucose (mg/dL) 371 H 391 H 200 H (75-99) mg/dL Calcium (8.4-10.2) mg/dL 09/24/21 09/24/21 09/24/21 Range/Units 09:01 09:01 11:37 RBC 2.64 L (3.80-5.40) m/uL Hgb 8.0 L (11.4-16.0) gm/dL Hct 24.6 L (34.0-46.0) % Neutrophils # 8.5 H (1.3-7.7) k/uL Lymphocytes # 0.3 L (1.0-4.8) k/uL Sodium 132 L (137-145) mmol/L Carbon Dioxide 20 L (22-30) mmol/L BUN 117 H* (7-17) mg/dL Creatinine 4.29 H (0.52-1.04) mg/dL Glucose 202 H (74-99) mg/dL POC Glucose (mg/dL) 303 H (75-99) mg/dL Calcium 7.8 L (8.4-10.2) mg/dL Microbiology - Last 24 Hours (Table) 09/23/21 02:29 Urine Culture - Final Urine,Voided 09/22/21 19:07 Blood Culture - Preliminary Blood No Growth after 24 hours Assessment and Plan Assessment: Shortness of breath, likely multifactorial, in part related to mild/moderate CHF, as well as coronavirus associated pneumonia. Monoclonal antibody administration on 09/19/2021. Rule out urinary tract infection. Morbid obesity, with a BMI of 45.9. History of CHF. History of hyperlipidemia. History of hypertension. History of diabetes with diabetic ulcers and neuropathy. Chronic kidney disease. History of previous myocardial infarction. CAD with previous stent placement. Plan: Plan dated 09/20/2021. The patient is currently on Lasix, as well as the rest of her cardiac medications. It appears that the primary process is more heart failure than coronavirus associated pneumonia. She just may have coronavirus infection, incidentally. We'll continue to follow make recommendations where appropriate. Prognosis is guarded. Plan dated 09/21/2021. The patient continues on Unasyn. In addition, the patient is on Decadron, but is not on any vitamins. Vitamin C, vitamin D3, and zinc should be added by the primary service. The patient is currently on heparin 5000 units subcu every 12 hours. Lovenox, 30 mg subcu daily wouldn't be a better option. Additional recommendations and suggestions are forthcoming. We will continue to follow. A pro-calcitonin level will be ordered. If it is normal, and a urinary tract infection is ruled out, antibiotics should be discontinued. Plan dated 09/22/2021. The patient continues on appropriate medications. The patient should be on vitamin C, vitamin D3, and zinc. I mentioned this to the primary service once or twice before. The patient continues on Decadron, 6 mg a day. In addition, the patient's on subcu heparin. A better choice the low molecular weight heparin. Additional recommendations and suggestions are forthcoming. We will continue to follow. A pro-calcitonin level is modestly elevated at 0.21. Culture data is negative. The patient continues on Unasyn as per the primary service. Plan dated 09/23/2021. The patient remains on Unasyn, as per the primary service. The patient is also getting Decadron, as well as subcutaneous heparin. The patient should be on vitamin C, vitamin D3, and zinc. For some reason, the primary service has not started it. The patient's pro-calcitonin level is low at 0.21. Culture data is as far negative We will continue to follow make recommendations where appropriate. Prognosis is guarded. Plan dated 09/24/2021. The patient remains on Unasyn as per the primary service. The patient's getting Decadron, and subcutaneous heparin. The patient should also be on vitamin C, vitamin D3, and zinc. The pro-calcitonin level is low at 0.21. Culture data is negative. Consideration should be given to discontinuing the antibiotic. Prognosis is guarded. No additional recommendations are made. We will continue to follow make recommendations where appropriate. Time with Patient: Less than 30
[2021-09-24 16:54] LABS: Glucose,Whole Blood 309 mg/dL (75-99)
--- NOTE | 2021-09-24 17:58 | PN ---
PROGRESS NOTE DATE OF SERVICE: 09/24/2021 REASON FOR FOLLOWUP: UTI and COVID-19 infection. INTERVAL HISTORY: The patient is afebrile. The patient is breathing slightly comfortably. The patient denies having any chest pain. She did have a cough, not bringing up any sputum, though. No abdominal pain and no diarrhea. PHYSICAL EXAMINATION: Blood pressure 144/90 with a pulse of 52, temperature 98. She is 93% on 4 L nasal cannula. General description is an elderly female up in the bed in no distress. Respiratory system: Unlabored breathing, decreased intensity of breath sounds. No wheeze. Heart S1, S2. Regular rate and rhythm. Abdomen soft, no tenderness. LABS: Hemoglobin is 8, white count 9.5, creatinine 4.29. DIAGNOSTIC IMPRESSION AND PLAN: 1. Patient admitted to hospital with shortness of breath which is multifactorial; possible fluid overload as well as a component of COVID-19 infection. Currently on dexamethasone, Lovenox, zinc and ascorbic acid; to continue. 2. Possible urinary tract infection, on Unasyn. Culture negative. Monitor clinical course closely. MMODL / IJN: [id number] /
[2021-09-24 21:02] LABS: Glucose,Whole Blood 343 mg/dL (75-99)
[2021-09-24] MEDS: ATORVASTATIN 80 MG TAB PO SCH (21:08)
[2021-09-24] MEDS: MELATONIN 5 MG TABLET PO SCH (21:09)
[2021-09-25] MEDS: INSULIN ASPART (NovoLOG) 100 UNIT/ML VIAL SQ SCH ×4 (06:43→20:46)
[2021-09-25] MEDS: PANTOPRAZOLE 40 MG TABLET PO SCH (06:43)
[2021-09-25 06:48] LABS: Glucose,Whole Blood 157 mg/dL (75-99)
[2021-09-25] MEDS: ZINC SULFATE 220 MG CAP PO SCH (08:28)
[2021-09-25] MEDS: hydrALAZINE HCL 25 MG TAB PO SCH ×2 (08:28→20:47)
[2021-09-25] MEDS: METOPROLOL TARTRATE 25 MG TAB PO SCH ×2 (08:28→20:47)
[2021-09-25] MEDS: DEXAMETHASONE SOD PHOSPHATE 10 MG/ML 1 ML VIAL IVP SCH (08:28)
[2021-09-25] MEDS: ASCORBIC ACID 500 MG TAB PO SCH (08:28)
[2021-09-25] MEDS: DILTIAZEM ORAL 60 MG TAB PO SCH ×2 (08:29→20:48)
[2021-09-25] MEDS: ISOSORBIDE MONONITRATE ER 60 MG TAB.ER.24H PO SCH (08:29)
[2021-09-25] MEDS: INSULN ASP PRT/INSULIN ASPART 100 UNIT/ML 10 ML VIAL SQ SCH ×2 (08:29→20:47)
[2021-09-25] MEDS: ASPIRIN 81 MG PO SCH (08:29)
[2021-09-25] MEDS: FAMOTIDINE 20 MG TAB PO SCH (08:29)
[2021-09-25] MEDS: HEPARIN SODIUM,PORCINE/PF 5,000 UNIT/0.5 ML SYRINGE SQ SCH ×2 (08:29→20:48)
[2021-09-25] MEDS: LORATADINE 10 MG TAB PO SCH (08:29)
[2021-09-25] MEDS: AMPICILLIN-SULBACTAM 3 GM in SODIUM CHLORIDE 0.9% 100 ML IVPB SCH (08:29)
--- NOTE | 2021-09-25 09:41 | P.PN ---
Subjective Patient is seen in follow-up for acute kidney injury on chronic kidney disease. Renal function worse with rising BUN - improved yesterday after diuretics were held. Diuretics stopped 09/23/2021. Nonoliguric. She is on 4 L nasal cannula. No vomiting or diarrhea. Vital signs are stable. General: On nasal cannula. HEENT: Head exam is unremarkable. LUNGS: Breath sounds decreased. Wheezing present. HEART: Rate and Rhythm are regular. ABDOMEN: Soft, no distention. EXTREMITITES: Trace edema. Objective - Vital Signs Vital signs: Vital Signs Temp 97.3 F L 09/25/21 08:00 Pulse 62 09/25/21 08:00 Resp 16 09/25/21 08:00 BP 154/76 09/25/21 08:00 Pulse Ox 93 L 09/25/21 08:00 Intake & Output 09/24/21 09/25/21 09/25/21 18:59 06:59 18:59 Intake Total 740 180 Output Total 700 Balance 740 -700 180 Intake: Intake, IV Titration 200 Amount Ampicillin-Sulbactam 3 gm 100 In Sodium Chloride 0.9% 100 ml @ 200 mls/hr IVPB Q24HR [facility] Rx#:[id number] Sodium Ferric Gluconat- 100 Sucrose 125 mg In Sodium Chloride 0.9% 100 ml @ 100 mls/hr IVPB DAILY [facility] Rx#:[id number] Oral 540 180 Output: Urine 700 Other: Voiding Method Toilet Toilet # Voids 0 - Labs CBC & Chem 7: 09/24/21 09:01 09/24/21 09:01 Labs: Abnormal Lab Results - Last 24 Hours (Table) 09/24/21 09/24/21 09/24/21 Range/Units 11:37 16:53 20:41 POC Glucose (mg/dL) 303 H 309 H 343 H (75-99) mg/dL 09/25/21 Range/Units 06:40 POC Glucose (mg/dL) 157 H (75-99) mg/dL Microbiology - Last 24 Hours (Table) 09/22/21 19:07 Blood Culture - Preliminary Blood No Growth after 48 hours 09/23/21 02:29 Urine Culture - Final Urine,Voided Assessment and Plan Plan: Assessment: 1. 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 Baseline creatinine in the range of 3-4. Renal function worsened from diuresis - slightly better yesterday but creatinine of 4.9. No hydronephrosis noted on CAT scan. Elevated BUN secondary to acute kidney injury as well as steroids. No evidence of GI bleed. 2. Volume overload. Improved with diuresis. 3. Anemia of chronic kidney disease. Iron deficiency noted - receiving IV iron. On Aranesp. 4. COVID-19 infection. 5. Acute on chronic diastolic CHF with mild to moderate mitral regurgitation. 6. Hypertension with chronic kidney disease. Stable. 7. Diabetes mellitus. 8. Chronic kidney disease mineral bone disease maintained on calcitriol. 9. Hyponatremia secondary to chronic kidney disease and hyperglycemia. Plan: Continue to hold diuretics. No evidence of fluid overload on chest x-ray. Continue to monitor renal function and urine output. Avoid nephrotoxins. Morning labs pending.
[2021-09-25 11:04] LABS: Calcium 7.6 mg/dL (8.4-10.2); Magnesium 2.3 mg/dL (1.6-2.3); Potassium 5.2 mmol/L (3.5-5.1)
[2021-09-25 11:53] LABS: Glucose,Whole Blood 259 mg/dL (75-99)
--- NOTE | 2021-09-25 11:57 | P.PN ---
Subjective This is a pleasant 66 years old female with multiple medical problems including diabetes mellitus, hypertension, hyperlipidemia, coronary artery disease and heart failure, she is status post stent placement, chronic kidney disease. Her lanolin plant operator is Dr. Núñez and acid pumper isDr. Steinberg Presents because of respiratory symptoms secondary to protocol with pneumonia and hypoxic respiratory failure, she is sitting in chair fully awake and chanelle ented but in distress for mild respiratory symptoms and lack of sleep for 2 days stating that her leg is restless as well and she's been going on for a while on and off but started acting up lately over the last 2 days. She still saturating 4 L/m compared to 3 L. Yesterday. She has good appetite and eating well with no diarrhea. However she was complaining of from urinary symptoms per the infectious disease team and recommended Unasyn, urine culture is pending. We added vitamin C, D and zinc daily. Urine culture is pending. Her glucose is uncontrolled and currently on insulin 70/30 at 60 units twice a day, which was increased today to 65 units twice a day. She has 2 episodes of nasal bleed but it is controlled now. 09/25/2021 Patient feels better partially, she still have dyspnea with exertion. However she slept better yesterday after starting melatonin and she has less restless leg after starting a small dose of Requip. Her epistaxis was stopped. Her chest x-ray looks clear with no evidence of fluid overload, she has bilateral patellar like edema Her creatinine is 4.0. She remains on dexamethasone, multiple vitamins, Unasyn and IV iron, urine culture is negative. Infectious disease team on the case and input is appreciated. Glucose is better controlled after increasing her insulin 70:30-65 units twice a day Objective - Vital Signs Vital signs: Vital Signs Temp 97.3 F L 09/25/21 08:00 Pulse 62 09/25/21 08:00 Resp 16 09/25/21 08:00 BP 154/76 09/25/21 08:00 Pulse Ox 93 L 09/25/21 08:00 Intake & Output 09/24/21 09/25/21 09/25/21 18:59 06:59 18:59 Intake Total 740 180 Output Total 700 Balance 740 -700 180 Intake: Intake, IV Titration 200 Amount Ampicillin-Sulbactam 3 gm 100 In Sodium Chloride 0.9% 100 ml @ 200 mls/hr IVPB Q24HR [facility] Rx#:[id number] Sodium Ferric Gluconat- 100 Sucrose 125 mg In Sodium Chloride 0.9% 100 ml @ 100 mls/hr IVPB DAILY [facility] Rx#:[id number] Oral 540 180 Output: Urine 700 Other: Voiding Method Toilet Toilet Toilet # Voids 0 - Exam -GENERAL: The patient is alert and oriented x3, not in any acute distress. Well developed, morbidly obese HEENT: Pupils are round and equally reacting to light. EOMI. No scleral icterus. No conjunctival pallor. Normocephalic, atraumatic. No pharyngeal erythema. No thyromegaly. CARDIOVASCULAR: S1 and S2 present. No murmurs, rubs, or gallops. -PULMONARY: Chest is clear to auscultation, no wheezing . Bilateral crackles ABDOMEN: Soft, nontender, nondistended, normoactive bowel sounds. No palpable organomegaly. MUSCULOSKELETAL: No joint swelling or deformity. EXTREMITIES: No cyanosis, clubbing, or pedal edema. NEUROLOGICAL: Gross neurological examination did not reveal any focal deficits. SKIN: No rashes. no petechiae. - Labs CBC & Chem 7: 09/24/21 09:01 09/25/21 10:05 Labs: Abnormal Lab Results - Last 24 Hours (Table) 09/24/21 09/24/21 09/25/21 Range/Units 16:53 20:41 06:40 Sodium (137-145) mmol/L Potassium (3.5-5.1) mmol/L Carbon Dioxide (22-30) mmol/L BUN (7-17) mg/dL Creatinine (0.52-1.04) mg/dL Glucose (74-99) mg/dL POC Glucose (mg/dL) 309 H 343 H 157 H (75-99) mg/dL Calcium (8.4-10.2) mg/dL 09/25/21 Range/Units 10:05 Sodium 132 L (137-145) mmol/L Potassium 5.2 H (3.5-5.1) mmol/L Carbon Dioxide 20 L (22-30) mmol/L BUN 125 H* (7-17) mg/dL Creatinine 4.01 H (0.52-1.04) mg/dL Glucose 232 H (74-99) mg/dL POC Glucose (mg/dL) (75-99) mg/dL Calcium 7.6 L (8.4-10.2) mg/dL Microbiology - Last 24 Hours (Table) 09/22/21 19:07 Blood Culture - Preliminary Blood No Growth after 48 hours 09/23/21 02:29 Urine Culture - Final Urine,Voided Assessment and Plan Assessment: Bilateral Covid pneumonia Acute hypoxic respiratory failure Increased inflammatory markers Acute diastolic CHF Urinary tract infection Acute on chronic kidney disease Chronic kidney disease stage III Anemia Elevated troponin, not consistent with cardiac disease per lanolin plant operator Large mediastinal lymphadenopathy, patient informed with recommendation for follow-up as an outpatient and she agrees Plan: c this is a pleasant 66 years old female who presents with bilateral ovid pneumonia, acute kidney injury, and anemia Continue with dexamethasone Continue with vitamin C, vitamin D and zinc Pulmonary consult Nephrology and infectious disease consult Continue with antibiotics per infectious disease team Continue with insulin 70:30 and monitor glucose Injection Molding Supervisor team already evaluated the patient and signed off Labs and medication were reviewed.. Continue same treatment. Continue with symptomatic treatment. Resume home medication. Monitor lytes and vitals. DVT and GI prophylaxis. Further recommendationsas per clinical course of the patient DVT prophylaxis: Subcutaneous heparin GI Prophylaxis: Ppi PT/OT: Pending Prognosis is guarded
--- NOTE | 2021-09-25 13:57 | P.PN ---
Subjective Progress Note Date: 09/25/21 Principal diagnosis: Respiratory failure. Pulmonary consult dated 09/20/2021. This is a 66-year-old female, who presents to the emergency department on September 19, complaining of chest pain, weakness, and shortness of breath. The patient has not been feeling well for 2 or 3 days prior to admission. She's had some nausea and vomiting. No diarrhea. She has some mild upper abdominal cramping. In addition, the patient has been short of breath, and been coughing a bit. The patient has a history of hypertension, diabetes, and previous myocardial infarction. The patient has not been vaccinated against coronavirus. In addition, the patient has a history of heart failure, hyperlipidemia, hypertension, diabetic ulcers, diabetic neuropathy, and chronic kidney disease. She has had a heart catheterization with stent placement. She is a lifelong nonsmoker. White count 4.3, hemoglobin 8.4, hematocrit 25, and platelet count 228,000. Sodium 135, potassium 4.7, chlorides 103, CO2 22, anion gap 10, BUN 76, and creatinine 3.29. Troponin was 0.183. N-terminal proBNP was 3770. Urine has 3+ protein, 2+ glucose, large positive leukocyte esterase, 123 WBCs, and rare bacteria. Testing for coronavirus was positive. Chest x-ray shows evidence of cardiomegaly, and bilateral infiltrates. The patient apparently got monoclonal antibody in the emergency department, on September 19. Progress note dated 09/21/2021. This is a 66-year-old female who was seen yesterday in consultation. My impression was that she had shortness of breath, likely related to underlying CHF, as well as coronavirus associated pneumonia. Currently, the patient is on 2 L nasal cannula. Currently, she's getting an iron infusion. She's not getting any IV fluids. Her breathing feels stable. She does have lots of shortness of breath on exertion. White count 3.8, hemoglobin 8, hematocrit 24.9, platelet count 259,000. Sodium 136, potassium 5, chlorides 103, CO2 23, anion gap 10, BUN 82, and creatinine 4.01. Computed tomography scan of the chest reveals patchy bilateral infiltrates, more peripherally located, and consistent with coronavirus associated pneumonia. Progress note dated 09/22/2021. 66-year-old female, who is seen a couple days ago consultation. She is doing much better today. She is on 2 L nasal cannula. She is not receiving any IV fluids. The patient was admitted with a diagnosis of shortness of breath, with hypoxemia, likely related to underlying CHF, as well as coronavirus associated pneumonia. Currently laboratory data includes a white count 2.2, hemoglobin 7 .9, hematocrit 23.7, and platelet count 247,000. D-dimer is 2.33. Sodium 134, potassium 5, chlorides 99, CO2 23, anion gap 12, BUN 89, and creatinine 4.11. The patient's LDH was 714, with a C-reactive protein of 5, and a N-terminal proBNP which is 5630. Progress note dated 09/23/2021. 66-year-old female, who is now been in the hospital for 4 days. She is again seen in room 383. The patient's currently resting comfortably. Patient's on 3 L nasal cannula. The patient is getting saline at 20 mL an hour. She has no particular complaints today. She feels like her breathing is improved. She was admitted with a diagnosis of shortness of breath, with hypoxemia, secondary to CHF, as well as coronavirus associated pneumonia. Currently labs today include a white count 4.9, hemoglobin 7.5, hematocrit 22.6, and platelet count 221,000. Sodium 130, potassium 4.9, chlorides 101, CO2 21, anion gap 8, BUN 103, and creatinine 4.58. Progress note dated 09/24/2021. 66-year-old female who is now been in the hospital for a total of 5 days. She seen again in room 383. The patient is currently on 4 L nasal cannula. She's receiving Unasyn, and IV iron supplementation. The patient is somewhat lethargic today. She is also receiving saline at 20 mL an hour. White count 9.5, hemoglobin 8, hematocrit 24.6, platelet count 285,000. Sodium 132, potassium 4.7, chlorides 101, CO2 20, anion gap 11, BUN 117, and creatinine 4.29. Chest x-ray shows evidence of cardiomegaly, small lung volumes, and diffuse bilateral infiltrates. The chest x-rays essentially unchanged. Progress note dated 09/25/2021. 66-year-old female, who is now been in the hospital for 6 days. Patient currently remains on 4 L nasal cannula. She's not receiving any IV fluids. Her biggest complaint is minimal nonproductive cough. The patient does have shortness breath when she exerts herself. Currently sitting in a chair next to her bed. Today's labs include a sodium 132, potassium 5.2, chlorides 100, CO2 2 0, anion gap 12, BUN 125, and creatinine 4.01. Glucose 232. Calcium 7.6, magnesium 2.3. Chest x-ray from September 24 is reviewed. Objective - Vital Signs Vital signs: Vital Signs Temp 97.3 F L 09/25/21 08:00 Pulse 57 L 09/25/21 12:00 Resp 16 09/25/21 12:00 BP 141/58 09/25/21 12:00 Pulse Ox 95 09/25/21 12:00 Intake & Output 09/24/21 09/25/21 09/25/21 18:59 06:59 18:59 Intake Total 740 180 Output Total 700 Balance 740 -700 180 Intake: Intake, IV Titration 200 Amount Ampicillin-Sulbactam 3 gm 100 In Sodium Chloride 0.9% 100 ml @ 200 mls/hr IVPB Q24HR ELISABETH Rx#:[id number] Sodium Ferric Gluconat- 100 Sucrose 125 mg In Sodium Chloride 0.9% 100 ml @ 100 mls/hr IVPB DAILY ELISABETH Rx#:[id number] Oral 540 180 Output: Urine 700 Other: Voiding Method Toilet Toilet Toilet # Voids 0 2 - Exam No acute distress, oriented 3.Currently on 4 L nasal cannula. Saturations are 95%. HEENT examination is grossly unremarkable. Neck supple. Full range of motion. No adenopathy thyromegaly or neck vein distention. Cardiovascular examination reveals regular rhythm rate. S1-S2 normal. No S3 or S4. No discernible murmur noted.Heart rate 57 bpm. Heart sounds are distant. Lungs reveal bilateral basilar crackles. Breath sounds equal bilaterally. Scattered mild rhonchi are noted. No wheezes. 4 L saturation is 95 %. Abdomen soft bowel sounds are heard. No masses or tenderness. Extremities are intact. No cyanosis clubbing or edema. Skin is without rash or lesion. Neurologic examination is brief but nonfocal. - Labs CBC & Chem 7: 09/24/21 09:01 09/25/21 10:05 Labs: Abnormal Lab Results - Last 24 Hours (Table) 09/24/21 09/24/21 09/25/21 Range/Units 16:53 20:41 06:40 Sodium (137-145) mmol/L Potassium (3.5-5.1) mmol/L Carbon Dioxide (22-30) mmol/L BUN (7-17) mg/dL Creatinine (0.52-1.04) mg/dL Glucose (74-99) mg/dL POC Glucose (mg/dL) 309 H 343 H 157 H (75-99) mg/dL Calcium (8.4-10.2) mg/dL 09/25/21 09/25/21 Range/Units 10:05 11:51 Sodium 132 L (137-145) mmol/L Potassium 5.2 H (3.5-5.1) mmol/L Carbon Dioxide 20 L (22-30) mmol/L BUN 125 H* (7-17) mg/dL Creatinine 4.01 H (0.52-1.04) mg/dL Glucose 232 H (74-99) mg/dL POC Glucose (mg/dL) 259 H (75-99) mg/dL Calcium 7.6 L (8.4-10.2) mg/dL Microbiology - Last 24 Hours (Table) 09/22/21 19:07 Blood Culture - Preliminary Blood No Growth after 48 hours 09/23/21 02:29 Urine Culture - Final Urine,Voided Assessment and Plan Assessment: Shortness of breath, likely multifactorial, in part related to mild/moderate CHF, as well as coronavirus associated pneumonia. Monoclonal antibody administration on 09/19/2021. Rule out urinary tract infection. Morbid obesity, with a BMI of 45.9. History of CHF. History of hyperlipidemia. History of hypertension. History of diabetes with diabetic ulcers and neuropathy. Chronic kidney disease. History of previous myocardial infarction. CAD with previous stent placement. Plan: Plan dated 09/20/2021. The patient is currently on Lasix, as well as the rest of her cardiac me dications. It appears that the primary process is more heart failure than coronavirus associated pneumonia. She just may have coronavirus infection, incidentally. We'll continue to follow make recommendations where appropriate. Prognosis is guarded. Plan dated 09/21/2021. The patient continues on Unasyn. In addition, the patient is on Decadron, but is not on any vitamins. Vitamin C, vitamin D3, and zinc should be added by the primary service. The patient is currently on heparin 5000 units subcu every 12 hours. Lovenox, 30 mg subcu daily wouldn't be a better option. Additional recommendations and suggestions are forthcoming. We will continue to follow. A pro-calcitonin level will be ordered. If it is normal, and a urinary tract infection is ruled out, antibiotics should be discontinued. Plan dated 09/22/2021. The patient continues on appropriate medications. The patient should be on vitamin C, vitamin D3, and zinc. I mentioned this to the primary service once or twice before. The patient continues on Decadron, 6 mg a day. In addition, the patient's on subcu heparin. A better choice the low molecular weight heparin. Additional recommendations and suggestions are forthcoming. We will continue to follow. A pro-calcitonin level is modestly elevated at 0.21. Cu lture data is negative. The patient continues on Unasyn as per the primary service. Plan dated 09/23/2021. The patient remains on Unasyn, as per the primary service. The patient is also getting Decadron, as well as subcutaneous heparin. The patient should be on vitamin C, vitamin D3, and zinc. For some reason, the primary service has not started it. The patient's pro-calcitonin level is low at 0.21. Culture data is as far negative We will continue to follow make recommendations where juan carlos ropriate. Prognosis is guarded. Plan dated 09/24/2021. The patient remains on Unasyn as per the primary service. The patient's getting Decadron, and subcutaneous heparin. The patient should also be on vitamin C, vitamin D3, and zinc. The pro-calcitonin level is low at 0.21. Culture data is negative. Consideration should be given to discontinuing the antibiotic. Prognosis is guarded. No additional recommendations are made. We will continue to follow make recommendations where appropriate. Plan dated 09/25/2021. The patient remains on Unasyn as per the primary service. Culture data thus far is negative. The patient is getting Decadron, and subcutaneous heparin. The patient is also getting vitamin C, and zinc. We will continue to follow make recommendations where appropriate. Some consideration should be given to discontinuing antibiotics. Pro-calcitonin level was only 0.21. Culture data is negative. Prognosis is guarded. Time with Patient: Less than 30
[2021-09-25 16:34] LABS: Glucose,Whole Blood 321 mg/dL (75-99)
[2021-09-25] MEDS: allopurinoL 100 MG TAB PO SCH (16:34)
--- NOTE | 2021-09-25 20:21 | PN ---
PROGRESS NOTE DATE OF SERVICE: 09/25/2021 REASON FOR FOLLOWUP: Positive COVID test and UTI. INTERVAL HISTORY: The patient is afebrile. The patient is currently breathing slightly comfortably. The patient denies having any chest pain or worsening cough or sputum production. No abdominal pain or diarrhea. PHYSICAL EXAMINATION: Blood pressure 140/76, pulse of 59, temperature 97.3. She is 93% on 4 L nasal cannula. General description is an elderly female up in the bed in no distress. Respiratory system: Unlabored breathing, decreased intensity of breath sounds. No wheeze. Heart S1, S2. Regular rate and rhythm. Abdomen soft, no tenderness. LABS: BUN 125, creatinine 4.01. Urine came back negative. Blood culture negative. DIAGNOSTIC IMPRESSION AND PLAN: 1. Patient with admission to hospital with shortness of breath which is multifactorial in this patient who did have plus/minus a component of COVID-19 infection in this patient who seems to have shown overall clinical improvement. Patient to continue current . 2. Patient with urinary tract infection with Gram-negative and monitor clinical course closely. MMODL / IJN: [id number] /
[2021-09-25 20:35] LABS: Glucose,Whole Blood 390 mg/dL (75-99)
[2021-09-25] MEDS: MELATONIN 5 MG TABLET PO SCH (20:48)
[2021-09-25] MEDS: ATORVASTATIN 80 MG TAB PO SCH (20:48)
[2021-09-26 05:59] LABS: Glucose,Whole Blood 314 mg/dL (75-99)
[2021-09-26] MEDS: INSULIN ASPART (NovoLOG) 100 UNIT/ML VIAL SQ SCH ×4 (06:15→20:35)
[2021-09-26] MEDS: PANTOPRAZOLE 40 MG TABLET PO SCH (06:15)
[2021-09-26] MEDS: INSULN ASP PRT/INSULIN ASPART 100 UNIT/ML 10 ML VIAL SQ SCH ×2 (08:50→20:35)
[2021-09-26] MEDS: HEPARIN SODIUM,PORCINE/PF 5,000 UNIT/0.5 ML SYRINGE SQ SCH ×2 (08:50→20:34)
[2021-09-26] MEDS: DILTIAZEM ORAL 60 MG TAB PO SCH ×2 (08:51→20:34)
[2021-09-26] MEDS: AMPICILLIN-SULBACTAM 3 GM in SODIUM CHLORIDE 0.9% 100 ML IVPB SCH (08:51)
[2021-09-26] MEDS: LORATADINE 10 MG TAB PO SCH (08:51)
[2021-09-26] MEDS: ZINC SULFATE 220 MG CAP PO SCH (08:51)
[2021-09-26] MEDS: DEXAMETHASONE SOD PHOSPHATE 10 MG/ML 1 ML VIAL IVP SCH (08:51)
[2021-09-26] MEDS: ASPIRIN 81 MG PO SCH (08:51)
[2021-09-26] MEDS: METOPROLOL TARTRATE 25 MG TAB PO SCH ×2 (08:52→20:34)
[2021-09-26] MEDS: ISOSORBIDE MONONITRATE ER 60 MG TAB.ER.24H PO SCH (08:52)
[2021-09-26] MEDS: ASCORBIC ACID 500 MG TAB PO SCH (08:52)
[2021-09-26] MEDS: hydrALAZINE HCL 25 MG TAB PO SCH ×2 (08:52→20:34)
[2021-09-26] MEDS: FAMOTIDINE 20 MG TAB PO SCH (08:53)
[2021-09-26 11:29] LABS: Glucose,Whole Blood 351 mg/dL (75-99)
--- NOTE | 2021-09-26 11:49 | P.PN ---
Subjective Progress Note Date: 09/26/21 This is a 66-year-old female, who presents to the emergency department on September 19, complaining of chest pain, weakness, and shortness of breath. The patient has not been feeling well for 2 or 3 days prior to admission. She's had some nausea and vomiting. No diarrhea. She has some mild upper abdominal cramping. In addition, the patient has been short of breath, and been coughing a bit. The patient has a history of hypertension, diabetes, and previous myocardial infarction. The patient has not been vaccinated against coronavirus. In addition, the patient has a history of heart failure, hyperlipidemia, hypertension, diabetic ulcers, diabetic neuropathy, and chronic kidney disease. She has had a heart catheterization with stent placement. She is a lifelong nonsmoker. On 09/26/2021, the patient is being seen in follow-up regarding her obesity- related pneumonia. The patient is currently on oxygen 4 L per minute nasal cannula. The patient is resting comfortably in bed. Her breathing is nonlabored. She is a bit lethargic and sleepy on today's evaluation. She also has been diagnosed having UTI and currently she is on the Unasyn. Urine cultures have been finalized and the final cultures came back negative. Meanwhile, the patient's inflammatory markers included a LDH level of 714, CRP level of 5.0, and the patient's pro calcitonin level level was at 0.21. For now, the patient is on therapy with Decadron 6 mg on a daily basis. She is also receiving subcutaneous heparin 5000 units every 12 hours. She is on oral aspirin. She is on 7030 NovoLog 70 units twice a day and a sliding scale coverage is also being utilized. Tolerating her diet. Drinking clear liquids. No other significant events overnight. The most recent chest x-ray was done on 09/24/2021 and it showed bilateral pulmonary infiltrates consistent with COVID 19-related pneumonia. There is also some background cardiomegaly. Objective - Vital Signs Vital signs: Vital Signs Temp 97.5 F L 09/26/21 08:00 Pulse 63 09/26/21 08:00 Resp 16 09/26/21 08:00 BP 167/73 09/26/21 08:00 Pulse Ox 96 09/26/21 08:00 Intake & Output 09/25/21 09/26/21 09/26/21 18:59 06:59 18:59 Intake Total 420 480 240 Output Total 2200 Balance 420 -1720 240 Weight 127.8 kg Intake: Oral 420 480 240 Output: Urine 2200 Other: Voiding Method Toilet Toilet # Voids 1 - Exam No acute distress, oriented 3.Currently on 4 L nasal cannula. Saturations are 95%. HEENT examination is grossly unremarkable. Neck supple. Full range of motion. No adenopathy thyromegaly or neck vein distention. Cardiovascular examination reveals regular rhythm rate. S1-S2 normal. No S3 or S4. No discernible murmur noted.Heart rate 57 bpm. Heart sounds are distant. Lungs reveal bilateral basilar crackles. Breath sounds equal bilaterally. Sc attered mild rhonchi are noted. No wheezes. 4 L saturation is 95 %. Abdomen soft bowel sounds are heard. No masses or tenderness. Extremities are intact. No cyanosis clubbing or edema. Skin is without rash or lesion. Neurologic examination is brief but nonfocal. - Labs CBC & Chem 7: 09/24/21 09:01 09/25/21 10:05 Labs: Abnormal Lab Results - Last 24 Hours (Table) 09/25/21 09/25/21 09/25/21 Range/Units 11:51 16:32 20:25 POC Glucose (mg/dL) 259 H 321 H 390 H (75-99) mg/dL 09/26/21 09/26/21 Range/Units 05:51 11:27 POC Glucose (mg/dL) 314 H 351 H (75-99) mg/dL Microbiology - Last 24 Hours (Table) 09/22/21 19:07 Blood Culture - Preliminary Blood No Growth after 72 hours Assessment and Plan Plan: Shortness of breath, likely multifactorial, in part related to mild/moderate CHF, as well as coronavirus associated pneumonia.Monoclonal antibody administration on 09/19/2021. The patient has been on oxygen at 4 L per minute nasal cannula and the patient is on Decadron. 3 stable. Breathing is nonlabored. No interval worsening shortness of breath. Inflammatory markers are mildly elevated. Chronic kidney disease Rule out urinary tract infection. Morbid obesity, with a BMI of 45.9. History of CHF. History of hyperlipidemia. History of hypertension. History of diabetes with diabetic ulcers and neuropathy. Chronic kidney disease. History of previous myocardial infarction. CAD with previous stent placement. Plan The patient is doing well. Her breathing is stable and there is no interval worsening and oxygenation and she remains on 4 L. Continue Decadron 6 mg IV every 24 hours Monitor the blood sugar and continue the NovoLog Mix 70/30 70 units twice a day in addition to sinus coverage The patient has chronic kidney disease and we are going to monitor the renal function. Nephrology is on the case. No clear indication for an underlying UTI and the patient's urine cultures of been negative
--- NOTE | 2021-09-26 13:28 | PN ---
PROGRESS NOTE Patient is seen for followup for chronic kidney disease. She currently is being treated for Covid pneumonia. Patient's renal function has deteriorated slightly during this hospitalization, but improved over the last couple of days with creatinine down to 4.0 yesterday from peak of 4.58. PHYSICAL EXAMINATION: Patient is currently comfortable, awake not in any acute distress. Blood pressure 167/73, heart rate 63 per minute. She is afebrile. Examination of the heart Examination of lower extremities shows no significant edema. [employer] PROJECT MANAGER exam grossly intact. Lungs and heart are not examined. LABS: Not available from today. Serum creatinine 4.0 on 09/25/2021. ASSESSMENT: 1. Acute kidney injury, acute tubular necrosis, slightly improved. 2. Chronic kidney disease stage 4 secondary to diabetic kidney disease and nephrosclerosis. Baseline creatinine about 3 to mid threes. No evidence of obstruction. 3. Disproportionately elevated BUN secondary to steroids. 4. COVID-19 infection. 5. Volume overload status post diuresis. 6. Hypertension with CKD. 7. Acute on chronic diastolic congestive heart failure with mild to moderate mitral regurgitation. 8. CKD mineral bone disorder. PLAN: May continue to hold diuretics. Repeat labs today and then again in a.m. MMODL / IJN: [id number] /
--- NOTE | 2021-09-26 13:43 | P.PN ---
Subjective This is a pleasant 66 years old female with multiple medical problems including diabetes mellitus, hypertension, hyperlipidemia, coronary artery disease and heart failure, she is status post stent placement, chronic kidney disease. Her promos executive producer is Dr. Núñez and community engagement manager isDr. Steinberg Presents because of respiratory symptoms secondary to protocol with pneumonia and hypoxic respiratory failure, she is sitting in chair fully awake and chanelle ented but in distress for mild respiratory symptoms and lack of sleep for 2 days stating that her leg is restless as well and she's been going on for a while on and off but started acting up lately over the last 2 days. She still saturating 4 L/m compared to 3 L. Yesterday. She has good appetite and eating well with no diarrhea. However she was complaining of from urinary symptoms per the infectious disease team and recommended Unasyn, urine culture is pending. We added vitamin C, D and zinc daily. Urine culture is pending. Her glucose is uncontrolled and currently on insulin 70/30 at 60 units twice a day, which was increased today to 65 units twice a day. She has 2 episodes of nasal bleed but it is controlled now. 09/25/2021 Patient feels better partially, she still have dyspnea with exertion. However she slept better yesterday after starting melatonin and she has less restless leg after starting a small dose of Requip. Her epistaxis was stopped. Her chest x-ray looks clear with no evidence of fluid overload, she has bilateral patellar like edema Her creatinine is 4.0. She remains on dexamethasone, multiple vitamins, Unasyn and IV iron, urine culture is negative. Infectious disease team on the case and input is appreciated. Glucose is better controlled after increasing her insulin 70:30-65 units twice a day 09/26/2021 Patient breathing is improving and she looks more comfortable H tape however she still feels generally weak as well although it is improving. Her oxygen requirements down to 2 L/m today. No chest pain or other complaints. She is sleeping well, no more restless leg. No more epistaxis or bleeding. No labs from today. Urine culture is eventually negative. Tries to repeat urine analysis. Patient remains on Unasyn for now. Also she is on dexamethasone once daily and multiple vitamins. Her sugar has been significantly elevated more than 300 therefore we increased her insulin 70/30 at 65 increased to 70 units twice a day, patient informed and she agrees. Told me today she agrees to physical therapy evaluation however she refuses to go to rehab Check creatinine and labs in the morning. Check inflammatory markers and d- dimer. Physical therapy evaluation is ordered Objective - Vital Signs Vital signs: Vital Signs Temp 97.5 F L 09/26/21 08:00 Pulse 66 09/26/21 12:00 Resp 16 09/26/21 12:00 BP 155/75 09/26/21 12:00 Pulse Ox 93 L 09/26/21 12:00 Intake & Output 09/25/21 09/26/21 09/26/21 18:59 06:59 18:59 Intake Total 420 480 240 Output Total 2200 Balance 420 -1720 240 Weight 127.8 kg Intake: Oral 420 480 240 Output: Urine 2200 Other: Voiding Method Toilet Toilet # Voids 1 - Exam -GENERAL: The patient is alert and oriented x3, not in any acute distress. Well developed, morbidly obese HEENT: Pupils are round and equally reacting to light. EOMI. No scleral icterus. No conjunctival pallor. Normocephalic, atraumatic. No pharyngeal erythema. No thyromegaly. CARDIOVASCULAR: S1 and S2 present. No murmurs, rubs, or gallops. -PULMONARY: Chest is clear to auscultation, no wheezing . Bilateral crackles ABDOMEN: Soft, nontender, nondistended, normoactive bowel sounds. No palpable organomegaly. MUSCULOSKELETAL: No joint swelling or deformity. EXTREMITIES: No cyanosis, clubbing, or pedal edema. NEUROLOGICAL: Gross neurological examination did not reveal any focal deficits. SKIN: No rashes. no petechiae. - Labs CBC & Chem 7: 09/24/21 09:01 09/25/21 10:05 Labs: Abnormal Lab Results - Last 24 Hours (Table) 09/25/21 09/25/21 09/26/21 Range/Units 16:32 20:25 05:51 POC Glucose (mg/dL) 321 H 390 H 314 H (75-99) mg/dL 09/26/21 Range/Units 11:27 POC Glucose (mg/dL) 351 H (75-99) mg/dL Microbiology - Last 24 Hours (Table) 09/22/21 19:07 Blood Culture - Preliminary Blood No Growth after 72 hours Assessment and Plan Assessment: Bilateral Covid pneumonia Acute hypoxic respiratory failure Increased inflammatory markers Acute diastolic CHF Urinary tract infection Acute on chronic kidney disease Chronic kidney disease stage III Anemia Elevated troponin, not consistent with cardiac disease per promos executive producer Large mediastinal lymphadenopathy, patient informed with recommendation for follow-up as an outpatient and she agrees Plan: c this is a pleasant 66 years old female who presents with bilateral ovid pneumonia, acute kidney injury, and anemia Continue with dexamethasone Continue with vitamin C, vitamin D and zinc Pulmonary consult Nephrology and infectious disease consult Continue with antibiotics per infectious disease team Continue with insulin 70:30 and monitor glucose Wardrobe Assistant team already evaluated the patient and signed off Labs and medication were reviewed.. Continue same treatment. Continue with symptomatic treatment. Resume home medication. Monitor lytes and vitals. DVT and GI prophylaxis. Further recommendationsas per clinical course of the patient DVT prophylaxis: Subcutaneous heparin GI Prophylaxis: Ppi PT/OT: Pending Prognosis is guarded
[2021-09-26] MEDS: allopurinoL 100 MG TAB PO SCH (15:43)
[2021-09-26 16:17] LABS: Glucose,Whole Blood 467 mg/dL (75-99)
[2021-09-26 19:54] LABS: Glucose,Whole Blood 412 mg/dL (75-99)
[2021-09-26] MEDS: hydrALAZINE HCL 10 MG TAB PO SCH (20:34)
[2021-09-26] MEDS: MELATONIN 5 MG TABLET PO SCH (20:34)
[2021-09-26] MEDS: ATORVASTATIN 80 MG TAB PO SCH (20:34)
[2021-09-26] MEDS ORDERED: hydrALAZINE HCL 25 MG TAB PO SCH (21:00)
--- NOTE | 2021-09-26 22:36 | PN ---
PROGRESS NOTE DATE OF SERVICE: 09/26/2021 REASON FOR FOLLOWUP: Covid 19 infection and possible UTI. INTERVAL HISTORY: Patient is afebrile. Still complaining of shortness of breath. Denies any chest pain. No worsening cough or sputum production. No abdominal pain. No diarrhea. PHYSICAL EXAMINATION: Blood pressure 136/60 with a pulse of 64, temperature 97.9, she is 94% on 2 L nasal cannula. General description is an elderly female up in the bed in no distress. Respiratory system: Unlabored breathing, decreased intensity in breath sounds. No wheeze. Heart S1, S2. Regular rate and rhythm. Abdomen soft, no tenderness. LABS: No new labs have been obtained today. DIAGNOSTIC IMPRESSION/PLAN: 1. Patient admitted to the hospital with shortness of breath which is multifactorial in this patient admitted to the hospital with fluid overload, did have positive Covid test. Currently covered with dexamethasone, heparin, zinc and ascorbic acid. 2. Patient with a positive urine culture urinary tract infection. Culture subsequently came back negative. Underlying urinary tract infection has been adequately treated. We will go ahead and discontinue Unasyn and monitor the patient closely off antibiotic therapy. MMODL / IJN: [id number] /
[2021-09-27 05:54] LABS: Glucose,Whole Blood 218 mg/dL (75-99)
[2021-09-27] MEDS: INSULIN ASPART (NovoLOG) 100 UNIT/ML VIAL SQ SCH ×3 (06:40→17:05)
[2021-09-27] MEDS: PANTOPRAZOLE 40 MG TABLET PO SCH (06:41)
[2021-09-27] MEDS: INSULN ASP PRT/INSULIN ASPART 100 UNIT/ML 10 ML VIAL SQ SCH (08:53)
[2021-09-27] MEDS: HEPARIN SODIUM,PORCINE/PF 5,000 UNIT/0.5 ML SYRINGE SQ SCH (08:53)
[2021-09-27] MEDS: DEXAMETHASONE SOD PHOSPHATE 10 MG/ML 1 ML VIAL IVP SCH (08:53)
[2021-09-27] MEDS: METOPROLOL TARTRATE 25 MG TAB PO SCH (08:53)
[2021-09-27] MEDS: ISOSORBIDE MONONITRATE ER 60 MG TAB.ER.24H PO SCH (08:54)
[2021-09-27] MEDS: LORATADINE 10 MG TAB PO SCH (08:54)
[2021-09-27] MEDS: ASCORBIC ACID 500 MG TAB PO SCH (08:54)
[2021-09-27] MEDS: hydrALAZINE HCL 25 MG TAB PO SCH (08:54)
[2021-09-27] MEDS: ASPIRIN 81 MG PO SCH (08:54)
[2021-09-27] MEDS: ZINC SULFATE 220 MG CAP PO SCH (08:54)
[2021-09-27] MEDS: DILTIAZEM ORAL 60 MG TAB PO SCH (08:54)
[2021-09-27] MEDS: FAMOTIDINE 20 MG TAB PO SCH (08:55)
[2021-09-27] MEDS: hydrALAZINE HCL 10 MG TAB PO SCH (08:55)
[2021-09-27 08:57] LABS: C Reactive Protein 1.1 mg/dL (<1.0); Calcium 7.9 mg/dL (8.4-10.2); Potassium 4.8 mmol/L (3.5-5.1)
[2021-09-27 09:02] VITALS: RESP 16; TEMP 97.1
[2021-09-27 12:12] LABS: Glucose,Whole Blood 160 mg/dL (75-99)
--- NOTE | 2021-09-27 12:19 | P.PN ---
Subjective Patient is seen in follow-up for acute kidney injury on chronic kidney disease. Renal function improving. Diuretics stopped 09/23/2021. Nonoliguric. She is on 2 L nasal cannula. No vomiting or diarrhea. Denies chest pain or shortness of breath. Vital signs are stable. General: On nasal cannula. HEENT: Head exam is unremarkable. LUNGS: Breath sounds decreased. Wheezing present. HEART: Rate and Rhythm are regular. ABDOMEN: Soft, no distention. EXTREMITITES: Trace edema. Objective - Vital Signs Vital signs: Vital Signs Temp 97.1 F L 09/27/21 08:00 Pulse 61 09/27/21 12:00 Resp 16 09/27/21 12:00 BP 167/69 09/27/21 12:00 Pulse Ox 95 09/27/21 12:00 Intake & Output 09/26/21 09/27/21 09/27/21 18:59 06:59 18:59 Intake Total 720 480 118 Output Total 1000 Balance 720 -520 118 Intake: Oral 720 480 118 Output: Urine 1000 Other: Voiding Method Toilet Toilet - Labs CBC & Chem 7: 09/24/21 09:01 09/27/21 08:21 Labs: Abnormal Lab Results - Last 24 Hours (Table) 09/26/21 09/26/21 09/27/21 Range/Units 16:16 19:43 05:52 D-Dimer (<0.60) mg/L FEU Sodium (137-145) mmol/L BUN (7-17) mg/dL Creatinine (0.52-1.04) mg/dL Glucose (74-99) mg/dL POC Glucose (mg/dL) 467 H 412 H 218 H (75-99) mg/dL Calcium (8.4-10.2) mg/dL Lactate Dehydrogenase (313-618) U/L C-Reactive Protein (<1.0) mg/dL 09/27/21 09/27/21 09/27/21 Range/Units 08:21 08:21 12:09 D-Dimer 2.09 H (<0.60) mg/L FEU Sodium 136 L (137-145) mmol/L BUN 113 H* (7-17) mg/dL Creatinine 3.14 H (0.52-1.04) mg/dL Glucose 215 H (74-99) mg/dL POC Glucose (mg/dL) 160 H (75-99) mg/dL Calcium 7.9 L (8.4-10.2) mg/dL Lactate Dehydrogenase 768 H (313-618) U/L C-Reactive Protein 1.1 H (<1.0) mg/dL Microbiology - Last 24 Hours (Table) 09/22/21 19:07 Blood Culture - Preliminary Blood No Growth after 96 hours Assessment and Plan Plan: Assessment: 1. 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 Baseline creatinine in the range of 3-4. Renal function improving - creatinine 3.14 today. No hydronephrosis noted on CAT scan. Elevated BUN secondary to acute kidney injury as well as steroids - trending down. No evidence of GI bleed. 2. Volume overload. Improved with diuresis. 3. Anemia of chronic kidney disease. Iron deficiency noted - receiving IV iron. On Aranesp. 4. COVID-19 infection. 5. Acute on chronic diastolic CHF with mild to moderate mitral regurgitation. 6. Hypertension with chronic kidney disease. Exacerbated by steroids. 7. Diabetes mellitus. 8. Chronic kidney disease mineral bone disease maintained on calcitriol. 9. Hyponatremia secondary to chronic kidney disease and hyperglycemia. Better. Plan: Continue to hold diuretics. No evidence of fluid overload on chest x-ray. Continue to monitor renal function and urine output. Avoid nephrotoxins. Increase dose of hydralazine 200 mg 3 times daily.
[2021-09-27 13:09] LABS: Appearance,Urine Clear (Clear); Bacteria,Urine Rare /hpf; Bilirubin,Urine Negative (Negative); Blood,Urine Negative (Negative); Color,Urine Light Yellow; Glucose,Urine (UA) 2+ (Negative); Ketones,Urine Negative (Negative); Leukocyte Esterase,Urine Negative (Negative); Mucus,Urine Rare /hpf; Nitrite,Urine Negative (Negative); PH, Urine 5.5 (5.0-8.0); Protein,Urine 2+ (Negative); RBC,Urine 1 /hpf (0-5); Specific Gravity,Urine 1.013 (1.001-1.035); Squamous Epithelial Cell,Urine 1 /hpf (0-4); Urobilinogen,Urine <2.0 mg/dL (<2.0); WBC,Urine 1 /hpf (0-5)
--- NOTE | 2021-09-27 15:16 | P.PN ---
Subjective Progress Note Date: 09/27/21 This is a 66-year-old female, who presents to the emergency department on September 19, complaining of chest pain, weakness, and shortness of breath. The patient has not been feeling well for 2 or 3 days prior to admission. She's had some nausea and vomiting. No diarrhea. She has some mild upper abdominal cramping. In addition, the patient has been short of breath, and been coughing a bit. The patient has a history of hypertension, diabetes, and previous myocardial infarction. The patient has not been vaccinated against coronavirus. In addition, the patient has a history of heart failure, hyperlipidemia, hypertension, diabetic ulcers, diabetic neuropathy, and chronic kidney disease. She has had a heart catheterization with stent placement. She is a lifelong nonsmoker. On 09/26/2021, the patient is being seen in follow-up regarding her obesity- related pneumonia. The patient is currently on oxygen 4 L per minute nasal cannula. The patient is resting comfortably in bed. Her breathing is nonlabored. She is a bit lethargic and sleepy on today's evaluation. She also has been diagnosed having UTI and currently she is on the Unasyn. Urine cultures have been finalized and the final cultures came back negative. Meanwhile, the patient's inflammatory markers included a LDH level of 714, CRP level of 5.0, and the patient's pro calcitonin level level was at 0.21. For now, the patient is on therapy with Decadron 6 mg on a daily basis. She is also receiving subcutaneous heparin 5000 units every 12 hours. She is on oral aspirin. She is on 7030 NovoLog 70 units twice a day and a sliding scale coverage is also being utilized. Tolerating her diet. Drinking clear liquids. No other significant events overnight. The most recent chest x-ray was done on 09/24/2021 and it showed bilateral pulmonary infiltrates consistent with COVID 19-related pneumonia. There is also some background cardiomegaly. 09/27/2021, the patient is still on oxygen at 2 L per minute nasal cannula and the patient was taken off the oxygen she was placed on room air oxygen and the patient's pulse ox was maintained above 90%. He had with mobility, she desaturated and based on that she was placed back on oxygen. She is doing well. Breathing is nonlabored. No significant respiratory difficulties. No cough sputum production chest tightness or wheezing. The patient has no specific complaints. The patient for now is still on Decadron 6 mg IV every 24 hours. The patient is also on anticoagulation with heparin subcu 5000 units every 12 hours. Home medications have been ordered resume for now. The patient on NovoLog 7030 mix 70 units twice a day. Blood work from today was reviewed. The patient's d-dimer is at 2.09. B on his 113 with a creatinine of 3.14 and this improved compared to yesterday. Serum bicarbonate 23 with anion gap of 9. LDH level is at 768. CRP level is at 1.1. Objective - Vital Signs Vital signs: Vital Signs Temp 97.1 F L 09/27/21 08:00 Pulse 61 09/27/21 12:00 Resp 16 09/27/21 13:22 BP 167/69 09/27/21 12:00 Pulse Ox 85 L 09/27/21 12:15 Intake & Output 09/26/21 09/27/21 09/27/21 18:59 06:59 18:59 Intake Total 720 480 236 Output Total 1000 300 Balance 720 -520 -64 Intake: Oral 720 480 236 Output: Urine 1000 300 Other: Voiding Method Toilet Toilet - Exam No acute distress, oriented 3.Currently on 2-4 L nasal cannula. Saturations are 95%. HEENT examination is grossly unremarkable. Neck supple. Full range of motion. No adenopathy thyromegaly or neck vein dis tention. Cardiovascular examination reveals regular rhythm rate. S1-S2 normal. No S3 or S4. No discernible murmur noted. Cardiac exam revealed the PMI to be normally situated and sized. The rhythm was regular and no extrasystoles were noted during several minutes of auscultation. The first and second heart sounds were normal and physiologic splitting of the second heart sound was noted. There were no murmurs, rubs, clicks, or gallops. Lungs reveal bilateral basilar crackles. Breath sounds equal bilaterally. Scattered mild rhonchi are noted. No wheezes. 2-4 L saturation is 95 %. Abdomen soft bowel sounds are heard. No masses or tenderness. Extremities are intact. No cyanosis clubbing or edema. Examination of the skin revealed no evidence of significant rashes, suspicious appearing nevi or other concerning lesions. Neurologically, the patient is awake and alert and the patient does not have any focal neurological deficit. Cranial nerves are essentially intact. - Labs CBC & Chem 7: 09/24/21 09:01 09/27/21 08:21 Labs: Abnormal Lab Results - Last 24 Hours (Table) 09/26/21 09/26/21 09/27/21 Range/Units 16:16 19:43 05:52 D-Dimer (<0.60) mg/L FEU Sodium (137-145) mmol/L BUN (7-17) mg/dL Creatinine (0.52-1.04) mg/dL Glucose (74-99) mg/dL POC Glucose (mg/dL) 467 H 412 H 218 H (75-99) mg/dL Calcium (8.4-10.2) mg/dL Lactate Dehydrogenase (313-618) U/L C-Reactive Protein (<1.0) mg/dL Urine Protein (Negative) Urine Glucose (UA) (Negative) Urine Bacteria (None) /hpf Urine Mucus (None) /hpf 09/27/21 09/27/21 09/27/21 Range/Units 08:21 08:21 12:09 D-Dimer 2.09 H (<0.60) mg/L FEU Sodium 136 L (137-145) mmol/L BUN 113 H* (7-17) mg/dL Creatinine 3.14 H (0.52-1.04) mg/dL Glucose 215 H (74-99) mg/dL POC Glucose (mg/dL) 160 H (75-99) mg/dL Calcium 7.9 L (8.4-10.2) mg/dL Lactate Dehydrogenase 768 H (313-618) U/L C-Reactive Protein 1.1 H (<1.0) mg/dL Urine Protein (Negative) Urine Glucose (UA) (Negative) Urine Bacteria (None) /hpf Urine Mucus (None) /hpf 09/27/21 Range/Units 12:27 D-Dimer (<0.60) mg/L FEU Sodium (137-145) mmol/L BUN (7-17) mg/dL Creatinine (0.52-1.04) mg/dL Glucose (74-99) mg/dL POC Glucose (mg/dL) (75-99) mg/dL Calcium (8.4-10.2) mg/dL Lactate Dehydrogenase (313-618) U/L C-Reactive Protein (<1.0) mg/dL Urine Protein 2+ H (Negative) Urine Glucose (UA) 2+ H (Negative) Urine Bacteria Rare H (None) /hpf Urine Mucus Rare H (None) /hpf Microbiology - Last 24 Hours (Table) 09/22/21 19:07 Blood Culture - Preliminary Blood No Growth after 96 hours Assessment and Plan Plan: Shortness of breath, likely multifactorial, in part related to mild/moderate CHF, as well as coronavirus associated pneumonia.Monoclonal antibody administration on 09/19/2021. The patient has been on oxygen at 4 L per minute nasal cannula and the patient is on Decadron. Clinically stable. Breathing is nonlabored. No interval worsening shortness of breath. Inflammatory markers are mildly elevated. The patient on room air oxygen during rest, she was able to maintain a pulse ox above 90%. With activity, she is still desaturating and based on that she was placed back on oxygen between 2 and 4 L per minute nasal cannula. His, comfortable at this point in time. Chronic kidney disease, there was a component of acute kidney injury did improve and the patient's creatinine is down to 3.14. Rule out urinary tract infection. Urine culture has been negative. Morbid obesity, with a BMI of 45.9. History of CHF. History of hyperlipidemia. History of hypertension. History of diabetes with diabetic ulcers and neuropathy. Chronic kidney disease. History of previous myocardial infarction. CAD with previous stent placement. Plan The patient is doing well. Her breathing is stable and there is no interval worsening and oxygenation and she remains on 2-4 L. May consider discharging this patient home along with a home concentrator and portable tanks. Increase mobility as tolerated Continue using incentive spirometer Acute kidney injury is improving and the patient has chronic kidney disease Continue Decadron 6 mg IV every 24 hours Monitor the blood sugar and continue the NovoLog Mix 70/30 70 units twice a day in addition to sinus coverage The patient has chronic kidney disease and we are going to monitor the renal function. Nephrology is on the case. No clear indication for an underlying UTI and the patient's urine cultures of been negative We'll continue to follow on discharge planning is in progress.
[2021-09-27] MEDS ORDERED: hydrALAZINE HCL 50 MG TAB PO SCH (16:00)
[2021-09-27 16:43] LABS: Glucose,Whole Blood 281 mg/dL (75-99)
[2021-09-27 17:48] VITALS: BP 156/63; PULSE 63
--- NOTE | 2021-09-27 19:23 | PN ---
PROGRESS NOTE DATE OF SERVICE: 09/27/2021. REASON FOR FOLLOWUP: UTI and positive Covid test. INTERVAL HISTORY: The patient is afebrile. The patient is breathing comfortably. The patient denies having any chest pain. No worsening cough or sputum production. No abdominal pain or diarrhea. PHYSICAL EXAMINATION: Blood pressure 156/68 with a pulse of 93, temperature 98. She is 96% on 2 L nasal cannula. General description is an elderly female up in the bed in no distress. Respiratory system: Unlabored breathing, decreased intensity of the breath sounds, no wheeze. Heart S1, S2. Regular rate and rhythm. Abdomen soft, no tenderness. LABS: BUN is 1.3, creatinine 3.14. Repeat urine this morning is negative. DIAGNOSTIC IMPRESSION AND PLAN: 1. Patient with UTI adequately treated. Repeat urine is negative. No need for further antibiotic therapy. 2. Patient with Covid-19 infection. Continue with current treatment. MMODL / IJN: [id number] /
--- NOTE | 2021-09-27 21:46 | P.DS ---
Providers Date of admission: 09/19/21 15:44 Attending physician: Aylin Seymour Consults: 09/19/21 15:43 Consult Physician Routine Consulting Provider: Ajay Awad Consult Reason/Comments: COVID Do you want consulting provider notified?: Yes 09/19/21 19:03 Consult Physician Routine Consulting Provider: Calin Crespo Consult Reason/Comments: covid Do you want consulting provider notified?: Yes 09/20/21 10:24 Consult Physician Routine Consulting Provider: Kash Steinberg Consult Reason/Comments: CKD Do you want consulting provider notified?: Yes Primary care physician: [facility] Hospital Course: Diagnoses: Bilateral Covid pneumonia Acute hypoxic respiratory failure, improving Increased inflammatory markers Acute diastolic CHF, improved Urinary tract infection, finished therapy Acute on chronic kidney disease, improving Chronic kidney disease stage III Anemia Elevated troponin, not consistent with cardiac disease per staffing clerk Large mediastinal lymphadenopathy, patient informed with recommendation for follow-up as an outpatient and she agrees Hospital course: This is a pleasant 66 years old female with multiple medical problems including diabetes mellitus, hypertension, hyperlipidemia, coronary artery disease and heart failure, she is status post stent placement, chronic kidney disease. Her staffing clerk is Dr. Núñez and justice court deputy clerk isDr. Steinberg Presents because of respiratory symptoms secondary to Covid pneumonia and hypoxic respiratory failure, patient has been treated for recommendation of pulmonary team with dexamethasone, vitamin C, D and zinc. Also she was found to have a urinary tract infection and she was treated with Unasyn with infectious disease followed her closely, patient finished her therapy with antibiotic. On admission her creatinine was elevated at 4.0, which is peaked at 4.5 but upon discharge improved down to 3.1, as she has evidence of chronic kidney disease and she's been followed closely by nephrology team as well. Patient also developed by staffing clerk, her ejection fraction was checked and it was 50-55%. On the day of discharge her symptoms significantly improved and patient back close to her baseline, her dyspnea is resolved at rest, she has some mild exertional dyspnea which is improving. The patient qualify and she will be discharged on home oxygen.On the day of discharge she denies chest pain, no abdominal pain or nausea vomiting. No diarrhea. No dysuria or other urinary symptoms. No headache or weakness or numbness. Patient evaluated by physical therapy however she told me she does not want to go to rehab and she wants to go home with home care. During hospitalization she needed higher dose of insulin 70/30 from dose of 60 up to 70 twice a day. However trulicity was not given to her in the hospital , upon discharge she wants to go back to using trulicity and she told me she can take it tomorrow therefore we discharged her on her home dose of 60 units twice a day with instructions to monitor her glucose for a closely 4 times a day, see discharge instructions Discussed the case with consultants, patient was cleared for discharge by pulmonary, nephrology and infectious disease team. Cardiology already signed off the case. Problems and management plan were discussed with the patient and he verbalized understanding and acceptance Patient was found stable and can be discharged home in guarded prognosis with home care however he needs follow-up as an outpatient. Patient was instructed to follow up with PCP Dr. jacobs within one week and patient agrees to call and make her own appointment Also patient was instructed to follow up with justice court deputy clerk Dr. Sarabia on 10/06 at 9 AM in the morning, patient told me she is going to call and change this appointment tomorrow afternoon. However she agrees with the appointments made for her with Dr. Awad on 10/28 at 1 PM. Patient also instructed to follow up with strategic marketing specialist Dr. Lu in 1-2 weeks for her diabetes and hyperglycemia. Physical exam Gen: patient is a AAOx3, no distress CVS: S1-S2, RRR, no murmur Lungs: B/L CTA, no wheezing Abdomen: soft, no distention, no tenderness, positive bowel sounds Extremity: no leg edema or induration Time spent more than 35 minutes she is sitting in chair fully awake and oriented but in distress for mild respiratory symptoms and lack of sleep for 2 days stating that her leg is restless as well and she's been going on for a while on and off but started acting up lately over the last 2 days. She still saturating 4 L/m compared to 3 L. Yesterday. She has good appetite and eating well with no diarrhea. However she was complaining of from urinary symptoms per the infectious disease team and recommended Unasyn, urine culture is pending. We added vitamin C, D and zinc daily. Urine culture is pending. Her glucose is uncontrolled and currently on insulin 70/30 at 60 units twice a day, which was increased today to 65 units twice a day. She has 2 episodes of nasal bleed but it is controlled now. 09/25/2021 Patient feels better partially, she still have dyspnea with exertion. However she slept better yesterday after starting melatonin and she has less restless leg after starting a small dose of Requip. Her epistaxis was stopped. Her chest x-ray looks clear with no evidence of fluid overload, she has bilateral patellar like edema Her creatinine is 4.0. She remains on dexamethasone, multiple vitamins, Unasyn and IV iron, urine culture is negative. Infectious disease team on the case and input is appreciated. Glucose is better controlled after increasing her insulin 70:30-65 units twice a day 09/26/2021 Patient breathing is improving and she looks more comfortable H tape however she still feels generally weak as well although it is improving. Her oxygen requirements down to 2 L/m today. No chest pain or other complaints. She is sleeping well, no more restless leg. No more epistaxis or bleeding. No labs from today. Urine culture is eventually negative. Tries to repeat urine analysis. Patient remains on Unasyn for now. Also she is on dexamethasone once daily and multiple vitamins. Her sugar has been significantly elevated more than 300 therefore we increased her insulin 70/30 at 65 increased to 70 units twice a day, patient informed and she agrees. Told me today she agrees to physical therapy evaluation however she refuses to go to rehab Check creatinine and labs in the morning. Check inflammatory markers and d- dimer. Physical therapy evaluation is ordered Objective Plan - Discharge Summary Discharge Rx Participant: No New Discharge Prescriptions: New hydrALAZINE HCL [Apresoline] 200 mg PO TID #90 tablet Dexamethasone [Decadron] 6 mg PO DAILY 3 Days #3 tablet Zinc Sulfate [Orazinc] 220 mg PO DAILY #30 cap Ascorbic Acid [Vitamin C] 1,000 mg PO DAILY #60 tab Metoprolol Tartrate [Lopressor] 75 mg PO BID #180 tab rOPINIRole HCL [Requip] 0.25 mg PO HS #30 tab Insuln Asp Prt/Insulin Aspart [NovoLOG MIX 70-30 VIAL] 60 unit SQ BID #10 ml Continue Loratadine [Claritin] 10 mg PO DAILY Aspirin 81 mg PO DAILY Ferrous Sulfate [Iron (65 MG Elemental)] 325 mg PO DAILY Ergocalciferol [Vitamin D2 (ISDOL)] 1,250 mcg PO FR Isosorbide Mononitrate ER [Imdur] 60 mg PO DAILY Atorvastatin [Lipitor] 80 mg PO HS Diltiazem Oral [Cardizem*] 60 mg PO BID Metoprolol Tartrate [Lopressor] 75 mg PO BID Famotidine [Pepcid] 20 mg PO DAILY 30 Days #30 tab Allopurinol [Zyloprim] 200 mg PO AC-SUPPER calcitrioL [Calcitriol] 0.25 mcg PO MOTH Dulaglutide [Trulicity] 0.75 mg SQ FR Nitroglycerin Sl Tabs [Nitrostat] 0.4 mg SL Q5M PRN PRN Reason: Chest Pain Discontinued hydrALAZINE HCL [Apresoline] 75 mg PO BID Torsemide [Demadex] 40 mg PO BID metOLazone [Zaroxolyn] 5 mg PO SUWE Insulin Lispro Protamin/Lispro [humaLOG Mix 75-25 Kwikpen] 60 units SQ BID Discharge Medication List Loratadine [Claritin] 10 mg PO DAILY 01/05/15 [History] Aspirin 81 mg PO DAILY 04/16/15 [History] Ferrous Sulfate [Iron (65 MG Elemental)] 325 mg PO DAILY 04/15/18 [History] Ergocalciferol [Vitamin D2 (DRISDOL)] 1,250 mcg PO FR 11/28/18 [History] Isosorbide Mononitrate ER [Imdur] 60 mg PO DAILY 12/09/18 [History] Atorvastatin [Lipitor] 80 mg PO HS 07/22/19 [History] Diltiazem Oral [Cardizem*] 60 mg PO BID 07/22/19 [History] Metoprolol Tartrate [Lopressor] 75 mg PO BID 07/22/19 [History] Famotidine [Pepcid] 20 mg PO DAILY 30 Days #30 tab 07/25/19 [Rx] Allopurinol [Zyloprim] 200 mg PO AC-SUPPER 03/30/21 [History] calcitrioL [Calcitriol] 0.25 mcg PO MOTH 03/30/21 [History] Dulaglutide [Trulicity] 0.75 mg SQ FR 09/19/21 [History] Nitroglycerin Sl Tabs [Nitrostat] 0.4 mg SL Q5M PRN 09/19/21 [History] Ascorbic Acid [Vitamin C] 1,000 mg PO DAILY #60 tab 09/27/21 [Rx] Dexamethasone [Decadron] 6 mg PO DAILY 3 Days #3 tablet 09/27/21 [Rx] Insuln Asp Prt/Insulin Aspart [NovoLOG MIX 70-30 VIAL] 60 unit SQ BID #10 ml 09/27/21 [Rx] Metoprolol Tartrate [Lopressor] 75 mg PO BID #180 tab 09/27/21 [Rx] Zinc Sulfate [Orazinc] 220 mg PO DAILY #30 cap 09/27/21 [Rx] hydrALAZINE HCL [Apresoline] 200 mg PO TID #90 tablet 09/27/21 [Rx] rOPINIRole HCL [Requip] 0.25 mg PO HS #30 tab 09/27/21 [Rx] Follow up Appointment(s)/Referral(s): Jai Jama MD [REFERRING] - 1 Week (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) Ajay Awad DO [Doctor of Osteopathic Medicine] - 10/28/21 1:00 pm [facility], [NON-STAFF] - Gale Amin MD [Primary Care Provider] - 1-2 days Kash Steinberg DO [STAFF PHYSICIAN] - 10/06/21 9:00 am (appointment with URIEL Cason) Patient Instructions/Handouts: Coronavirus Disease 2019 (COVID-19) Activity/Diet/Wound Care/Special Instructions: renal diet , low carbohydrate 1600 kcal per day diet activity is restricted till you see your doctor start taking your trulicity dose tomorrow together with your usual dose of insulin 70/30 Mix at 60 units BID we recommend to check your glucose 4 times a day before each meal and at bed time , keep the results in a log book and bring it to your doctor upon your appointment date if your glucose is less than 70 or more than 400 then call 911 and come to emergency room Discharge Disposition: HOME WITH HOME HEALTH SERVICES
--- NOTE | 2021-09-29 10:55 | CDI ---
Documentation Clarification Form Date: 09/29/2021 10:37:00 AM From: Kayley Mathis Admit Date: 09/19/2021 03:44:00 PM Patient Name: Loreta Beach Visit Number: [id number] Discharge Date: 09/27/2021 06:02:00 PM ATTENTION: The Clinical Documentation Specialists (CDI) and [facility] Coding Staff appreciate your assistance in clarifying documentation. Please respond to the clarification below the line at the bottom and electronically sign. The CDI & [facility] Coding staff will review the response and follow-up if needed. Please note: Queries are made part of the Legal Health Record. If you have any questions, please contact the author of this message via ITS. Dr. Amezcua E Sheet Per PN's 09/21, 09/22 and 09/23, attending documents Acute UTI with sepsis. The diagnosis of sepsis is not carried through chart. DCS documenting UTI finished therapy. Please clarify if patient had sepsis due to UTI or Covid 19 or was it ruled out. History/Risk Factors: Covid 19 pneumonia, DM with CKD, neuropathy and skin ulcers. UTI Clinical Indicators: WBC: 3.9 Vitals signs: 97.8 F, 67 bpm, 16, 155/65, 91% RA Treatment: Unasyn ID Consult: Positive urine but no urinary symptom possibly asymtomatic bacteriuria. Antibiotics: Unasyn In your professional opinion, please clarify if these findings signify one of the following conditions: [ ] Sepsis POA due to urinary tract infection [ ] Sepsis, POA due to Covid 19 [ ] Sepsis ruled out [ ] Other, please specify [ ] Unable to determine SIRS Criteria: 2 or more of the following may indicate SIRS -Temperature < 96.8F (36C) or > 101.0F (38.3C) -Heart Rate > 90 bpm -Respiratory Rate > 20 breaths/min or PaCO2 < 32 mmHg -White Blood Cell Count > 12,000 or < 4,000 cells/mm3 or > 10% bands no sepsis EDENILSOND
== END 2021-09-27 18:02 | disposition home health service (06) | DRG 177 ==
LOC: EC 12:18 → 3SCARD 15:44
PROVIDERS: ADMIT Hospitalist; ATTEND Hospitalist
PROC: XW033E6 Introduction of Etesevimab Monoclonal Antibody into Peripheral Vein, Percutaneous Approach, New Technology Group 6 (ICD-10-PCS; principal; 2021-09-19)
PROC: XW033F6 Introduction of Bamlanivimab Monoclonal Antibody into Peripheral Vein, Percutaneous Approach, New Technology Group 6 (ICD-10-PCS; principal; 2021-09-19)
DX: U07.1 COVID-19 (principal); K85.90 Acute pancreatitis without necrosis or infection, unspecified; N17.0 Acute kidney failure with tubular necrosis; J96.01 Acute respiratory failure with hypoxia; I50.33 Acute on chronic diastolic (congestive) heart failure; J12.82 Pneumonia due to coronavirus disease 2019; N18.4 Chronic kidney disease, stage 4 (severe); N39.0 Urinary tract infection, site not specified; E87.1 Hypo-osmolality and hyponatremia; I13.0 Hypertensive heart and chronic kidney disease with heart failure and stage 1 through stage 4 chronic kidney disease, or unspecified chronic kidney disease; Z68.42 Body mass index [BMI] 45.0-49.9, adult; L03.116 Cellulitis of left lower limb; L03.115 Cellulitis of right lower limb; L98.499 Non-pressure chronic ulcer of skin of other sites with unspecified severity; E83.9 Disorder of mineral metabolism, unspecified; D63.1 Anemia in chronic kidney disease; E11.22 Type 2 diabetes mellitus with diabetic chronic kidney disease; E11.40 Type 2 diabetes mellitus with diabetic neuropathy, unspecified; E11.65 Type 2 diabetes mellitus with hyperglycemia; E11.622 Type 2 diabetes mellitus with other skin ulcer; F41.9 Anxiety disorder, unspecified; R77.8 Other specified abnormalities of plasma proteins; E66.01 Morbid (severe) obesity due to excess calories; E78.5 Hyperlipidemia, unspecified; G25.81 Restless legs syndrome; I25.2 Old myocardial infarction; I25.10 Atherosclerotic heart disease of native coronary artery without angina pectoris; I34.0 Nonrheumatic mitral (valve) insufficiency; R04.0 Epistaxis; K29.00 Acute gastritis without bleeding; T38.0X5A Adverse effect of glucocorticoids and synthetic analogues, initial encounter; Z79.01 Long term (current) use of anticoagulants; Z79.4 Long term (current) use of insulin; Z79.82 Long term (current) use of aspirin; Z79.899 Other long term (current) drug therapy; Z82.3 Family history of stroke; Z82.49 Family history of ischemic heart disease and other diseases of the circulatory system; Z83.3 Family history of diabetes mellitus; Z95.5 Presence of coronary angioplasty implant and graft
CPT/HCPCS: 36415; 71045; 71250; 74176; 78580; 80048; 80053; 80061; 80306; 81001; 82150; 82728; 83036; 83540; 83550; 83615; 83690; 83735; 83880; 84145; 84484; 85025; 85379; 86140; 87040; 87086; 87635; 93005; 93308; 96361; 96374; 99285